=== PATIENT | female | born 1935 | race African-American/Black ===

== ENCOUNTER 2016-09-06 01:01 | Emergency (ER) | payer OTHER ==
[~2016-09-06] VITALS: Ht 162.6 cm; Wt 96.0 kg
[~2016-09-06 01:01] MED LIST: APIX2.5 PO; CEPH500C3 PO; DILT300C PO; LANTINJ SC; LEVO.125 PO; LISI-363 PO; METO50 PO; OMEP20TA39 PO; ONDA4 PO; PRAV40TA2 PO
[2016-09-06 01:04] VITALS: BP 168/86; PULSE 82; RESP 16; TEMP 98.1; O2SAT 93
[2016-09-06] MEDS ORDERED: SODIUM CHLOR 0.9% 1000 ML INJ 1,000 ML IV SCH (03:09)
[2016-09-06] MEDS ORDERED: ONDANSETRON HCL 4 MG/2 ML VIAL IVP ONE (03:15)
[2016-09-06] MEDS ORDERED: SODIUM CHLORIDE 0.9% FLUSH 5 ML FLUSH IVF PRN (03:15)
[2016-09-06 03:32] VITALS: RESP 18; O2SAT 95
[2016-09-06 03:34] LABS: AUTOMATED NEUTROPHIL # 8.6 TH/MM3 (1.8-7.7); BASOPHIL # 0.1 TH/MM3 (0-0.2); BASOPHIL % 0.7 % (0.0-2.0); EOSINOPHIL # 0.1 TH/MM3 (0-0.4); EOSINOPHIL % 0.6 % (0.0-4.0); HEMATOCRIT 35.9 % (35.0-46.0); HEMO FLAGS DIFF FINAL; LYMPH % 7.9 % (9.0-44.0); LYMPHOCYTE # 0.8 TH/MM3 (1.0-4.8); MEAN CELL VOLUME 90.3 FL (80.0-100.0); MEAN CORPUSCULAR HEMOGLOBIN 29.6 PG (27.0-34.0); MEAN CORPUSCULAR HGB CONC 32.8 % (32.0-36.0); MONO % 4.1 % (0.0-8.0); NEUT % 86.7 % (16.0-70.0); PLATELET COUNT 218 TH/MM3 (150-450); RED BLOOD COUNT 3.98 MIL/MM3 (4.00-5.30); RED CELL DISTRIBUTION WIDTH 14.3 % (11.6-17.2); WHITE BLOOD COUNT 9.9 TH/MM3 (4.0-11.0)
[2016-09-06 03:50] LABS: ALKALINE PHOSPHATASE 108 U/L (45-117); CREATINE KINASE 113 U/L (26-192); TOTAL BILIRUBIN ADULT 0.4 MG/DL (0.2-1.0)
[2016-09-06] MEDS ORDERED: OMEP20TA PO (03:50)
[2016-09-06] MEDS ORDERED: LANTINJ SQ (03:50)
[2016-09-06] MEDS ORDERED: APIX2.5T PO (03:50)
[2016-09-06] MEDS ORDERED: ATOR20TA15 PO (03:50)
[2016-09-06] MEDS ORDERED: LEVO125T4 PO (03:50)
[2016-09-06] MEDS ORDERED: LISI40TA PO (03:50)
[2016-09-06] MEDS ORDERED: DILT1TAB6 PO (03:50)
[2016-09-06] MEDS ORDERED: MULTCHW27 PO (03:50)
[2016-09-06] MEDS ORDERED: METO50TA PO (03:50)
[2016-09-06] MEDS ORDERED: VITA400C28 PO (03:50)
[2016-09-06] MEDS ORDERED: GABA100C4 PO (03:50)
[2016-09-06] MEDS ORDERED: CALC0.25 PO (03:50)
[2016-09-06 03:52] LABS: ALT (GPT) 16 U/L (10-53); ANION GAP 11 MEQ/L (5-15); AST (GOT) 18 U/L (15-37); BICARBONATE 27.3 MEQ/L (21.0-32.0); BLOOD UREA NITROGEN 22 MG/DL (7-18); CHLORIDE 98 MEQ/L (98-107); GLOMERULAR FILTRATION RATE 26 ML/MIN (>89); POTASSIUM 4.3 MEQ/L (3.5-5.1); SODIUM (NA) 136 MEQ/L (136-145)
--- NOTE | 2016-09-06 03:59 | PD ---
HPI Chief Complaint: Abdominal Pain Time Seen by Provider: 03:09 Travel History International Travel<30 days: No Contact w/Intl Traveler<30days: No Traveled to known affect area: No History of Present Illness HPI The patient is an 81 year old female who presents to the [facility] emergency department with a history of abdominal pain that began Monday evening after eating [employer]. She reports that the pain is in the midepigastric area and left upper quadrant of the abdomen. She reports that it is constant and aching sensation. She reports feeling nauseated. She attempted to make herself throw up, however it did not help. She denies any other alleviating or aggravating factors other than trying to eat seems to make it worse. She denies ever having a pain like this previously, however many years ago she did have a bowel obstruction that required small intestinal surgery. This was related to adhesions from a cholecystectomy. The patient reports that her last bowel movement was yesterday. She denies any change in her bowel movements. She denies any blood in her stool or black or tarry stools. She denies any mucus in her stool. The patient denies any recent fevers, cough, congestion, neck pain, chest pain, shortness of breath, diarrhea, urinary symptoms, or neurologic symptoms. [facility] Past Medical History Narrative Medical The patient's past medical history is significant for bowel obstruction many years ago, history of gout, history of osteoarthritis, atrial fibrillation, hyperlipidemia, diabetes mellitus, hypertension, hypothyroid disorder, chronically anticoagulated on Eliquis. Arthritis: Yes (RIGHT SHOULDER,HIP AND FOOT) Asthma: No Atrial Fibrillation: Yes Autoimmune Disease: Yes (GOUT RIGHT FOOT) Blood Disorders: No Anxiety: No Depression: No Heart Rhythm Problems: No Cancer: No Cardiovascular Problems: Yes High Cholesterol: Yes Chemotherapy: No Chest Pain: No Congestive Heart Failure: No COPD: No Cerebrovascular Accident: No Diabetes: Yes Patient Takes Glucophage: No Diminished Hearing: No Endocrine: Yes Gastrointestinal Disorders: No GERD: No Glaucoma: No Gout: Yes Genitourinary: No Headaches: No Hepatitis: No Hiatal Hernia: No Hypertension: Yes Immune Disorder: No Kidney Stones: No Musculoskeletal: Yes Neurologic: No Psychiatric: No Reproductive: No Respiratory: No Myocardial Infarction: No Radiation Therapy: No Renal Failure: No Seizures: No Sickle Cell Disease: No Sleep Apnea: No Thyroid Disease: Yes Ulcer: No PNEUMOCCOCAL Vaccine (Year): 2 Menopausal: Yes : 5 Para: 2 Miscarriage: 1 Past Surgical History Narrative Surgical The patient's past surgical history is significant for partial thyroidectomy, adhesion lysis, bilateral cataract surgery, cholecystectomy. Abdominal Surgery: Yes (SMALL INTESTINE SX) AICD: No Arteriovenous Shunt: No Cholecystectomy: Yes Eye Surgery: Yes (BILAT CATARACT) Insulin Pump: No Joint Replacement: No Pacemaker: No Other Surgery: Yes (THYROIDECTOMY 2010) Social History Alcohol Use: Yes (OCCASIONALLY DRINKS WINE) Tobacco Use: No Substance Use: No Allergies-Medications (Allergen,Severity, Reaction): Coded Allergies: Celebrex (Verified Allergy, Severe, SYNCOPE, 09/06/16) Reported Meds & Prescriptions Reported Meds & Active Scripts Active Zofran Odt (Ondansetron Odt) 4 Mg Tab 4 Mg SL Q6HR PRN Bactrim DS (Sulfamethoxazole-Trimethoprim) 800-160 Mg Tab 1 Tab PO BID Reported Lantus Solostar Pen Inj (Insulin Glargine) 300 Unit/3 Ml Pen 1 Units SQ Vitamin D (Cholecalciferol) 400 Unit Cap Multivitamin Gummies Adul (Multiple Vitamins W/ Minerals) 1 Chw Chw Eliquis (Apixaban) 2.5 Mg Tab 2.5 Mg PO BID Calcitriol 0.25 Mcg Cap 0.25 Mcg PO DAILY Omeprazole 20 Mg Tab 20 Mg PO BID Gabapentin 100 Mg Cap 100 Mg PO BID Lisinopril 40 Mg Tab 40 Mg PO DAILY Atorvastatin (Atorvastatin Calcium) 20 Mg Tab 20 Mg PO HS Metoprolol Tartrate 50 Mg Tab 50 Mg PO BID Levothyroxine (Levothyroxine Sodium) 125 Mcg Tab 125 Mcg PO DAILY Diltiazem ER 24 HR 300 Mg Lexy 300 Mg PO DAILY Review of Systems Except as stated in HPI: all other systems reviewed are Neg General / Constitutional: No: Fever Eyes: No: Visual changes HENT: No: Headaches Cardiovascular: No: Chest Pain or Discomfort Respiratory: No: Shortness of Breath Gastrointestinal: Positive: Nausea, Vomiting, Abdominal Pain, Indigestion, No : Hematemesis, Hematochezia, Changes in Bowel Habits, Loss of Appetite Genitourinary: No: Dysuria Musculoskeletal: No: Pain Skin: No Rash Neurologic: No: Weakness, Focal Abnormalities, Coordination Problem, Change in Mentation, Sensory Disturbance Psychiatric: No: Depression Endocrine: No: Polydipsia Hematologic/Lymphatic: No: Easy Bruising Physical Exam Narrative General: The patient is a well-developed well-nourished female in no acute distress. Head and Neck exam: Head is normocephalic atraumatic. Eyes: EOMI, pupils are equal round and reactive to light. Nose: Midline septum with pink mucous membranes Mouth: Dentition unremarkable. Moist mucus membranes. Posterior oropharynx is not erythematous. No tonsillar hypertrophy. Uvula midline. Airway patent. Neck: No palpable lymphadenopathy. No nuchal rigidity. No thyromegaly. Cardiovascular: Regular rate and rhythm without murmurs, gallops, or rubs. Lungs: Clear to auscultation bilaterally. No wheezes, rhonchi, or rales. Abdomen: Soft, with tenderness on palpation along the area just above the umbilicus in the midline overlying her prior laparotomy incision, no palpable hernia, no other tenderness on palpation of the other quadrants of the abdomen other than in the midepigastric area. No guarding, rebound, or rigidity. Negative [place] sign. Normal bowel sounds are audible. No tenderness on palpation of McBurney' s point. Extremities: No clubbing, cyanosis, or edema. 2+ pulses in all 4 extremities. No calf tenderness on palpation. Back: No spinous process tenderness to palpation. No costovertebral angle tenderness to palpation. Neurologic Exam: Grossly nonfocal. Skin Exam: No rash noted. Intact skin that is warm and dry. Data Data Last Documented VS Vital Signs Date Time Temp Pulse Resp B/P Pulse Ox O2 Delivery O2 Flow Rate FiO2 09/06/16 06:42 83 16 162/91 96 09/06/16 05:24 Nasal Cannula 2 09/06/16 01:04 98.1 Orders Urinalysis - C+S If Indicated (09/06/16 01:26) Complete Blood Count With Diff (09/06/16 03:09) Comprehensive Metabolic Panel (09/06/16 03:09) Lipase (09/06/16 03:09) Lactic Acid (09/06/16 03:09) Prothrombin Time / Inr (Pt) (09/06/16 03:09) Act Partial Throm Time (Ptt) (09/06/16 03:09) Iv Access Insert/Monitor (09/06/16 03:09) Ecg Monitoring (09/06/16 03:09) Oximetry (09/06/16 03:09) Ondansetron Inj (Zofran Inj) (09/06/16 03:15) Sodium Chlor 0.9% 1000 Ml Inj (Ns 1000 M (09/06/16 03:09) Sodium Chloride 0.9% Flush (Ns Flush) (09/06/16 03:15) Creatine Kinase (Cpk) (09/06/16 03:09) Ckmb (Isoenzyme) Profile (09/06/16 03:09) Troponin I (09/06/16 03:09) CKMB (09/06/16 03:20) CKMB% (09/06/16 03:20) Ct Abd/Pel W/O Iv Contrast (09/06/16 03:20) Morphine Inj (Morphine Inj) (09/06/16 04:30) Urine Culture (09/06/16 05:15) Ceftriaxone Inj (Rocephin Inj) (09/06/16 06:30) Labs Laboratory Tests Test 09/06/16 09/06/16 03:20 05:15 White Blood Count 9.9 TH/MM3 Red Blood Count 3.98 MIL/MM3 Hemoglobin 11.8 GM/DL Hematocrit 35.9 % Mean Corpuscular Volume 90.3 FL Mean Corpuscular Hemoglobin 29.6 PG Mean Corpuscular Hemoglobin 32.8 % Concent Red Cell Distribution Width 14.3 % Platelet Count 218 TH/MM3 Mean Platelet Volume 8.9 FL Neutrophils (%) (Auto) 86.7 % Lymphocytes (%) (Auto) 7.9 % Monocytes (%) (Auto) 4.1 % Eosinophils (%) (Auto) 0.6 % Basophils (%) (Auto) 0.7 % Neutrophils # (Auto) 8.6 TH/MM3 Lymphocytes # (Auto) 0.8 TH/MM3 Monocytes # (Auto) 0.4 TH/MM3 Eosinophils # (Auto) 0.1 TH/MM3 Basophils # (Auto) 0.1 TH/MM3 CBC Comment DIFF FINAL Differential Comment Prothrombin Time 11.0 SEC Prothromb Time International 1.0 RATIO Ratio Activated Partial 25.0 SEC Thromboplast Time Sodium Level 136 MEQ/L Potassium Level 4.3 MEQ/L Chloride Level 98 MEQ/L Carbon Dioxide Level 27.3 MEQ/L Anion Gap 11 MEQ/L Blood Urea Nitrogen 22 MG/DL Creatinine 2.19 MG/DL Estimat Glomerular Filtration 26 ML/MIN Rate Random Glucose 236 MG/DL Lactic Acid Level 1.3 mmol/L Calcium Level 9.3 MG/DL Total Bilirubin 0.4 MG/DL Aspartate Amino Transf 18 U/L (AST/SGOT) Alanine Aminotransferase 16 U/L (ALT/SGPT) Alkaline Phosphatase 108 U/L Total Creatine Kinase 113 U/L Creatine Kinase MB 1.1 NG/ML Troponin I LESS THAN 0.02 NG/ML Total Protein 8.5 GM/DL Albumin 3.7 GM/DL Lipase 215 U/L Urine Color YELLOW Urine Turbidity HAZY Urine pH 6.0 Urine Specific [place] 1.021 Urine Protein 300 mg/dL Urine Glucose (UA) NEG mg/dL Urine Ketones NEG mg/dL Urine Occult Blood SMALL Urine Nitrite NEG Urine Bilirubin NEG Urine Urobilinogen LESS THAN 2.0 MG/DL Urine Leukocyte Esterase MOD Urine RBC 5 /hpf Urine WBC 21 /hpf Urine WBC Clumps FEW Urine Squamous Epithelial 2 /hpf Cells Urine Transitional Epithelial <1 /hpf Cells Urine Renal Epithelial Cells <1 /hpf Urine Amorphous Sediment RARE Urine Bacteria RARE /hpf Urine Hyaline Casts 1 /lpf Urine Mucus FEW /lpf Microscopic Urinalysis Comment CULTURE INDICATED MDM Medical Decision Making Medical Screen Exam Complete: Yes Emergency Medical Condition: Yes Medical Record Reviewed: Yes Interpretation(s) Last Impressions Abdomen/Pelvis CT 09/06/16 0320 Signed Impressions: Service Date/Time: Tuesday, September 06, 2016 04:41 - CONCLUSION: 1. Stable, bilateral 1.7 cm adrenal nodules. 2. 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 3. No acute intraperitoneal or pelvic process to explain current clinical symptoms. Reyes Rogers MD Differential Diagnosis Recurrent bowel obstruction, versus colitis, versus diverticulitis, versus pancreatitis Narrative Course During the course of the patients emergency department visit, the patients history, examination, and differential diagnosis were reviewed with the patient. The patient had IV access obtained and blood work sent for analysis. The patient was placed on a library technology instructor with oximetry and blood pressure monitoring. An EKG was ordered. CT scan of the abdomen and pelvis was ordered. The patient was provided normal saline IV fluids, morphine for pain, Zofran for nausea. The patients laboratory studies were reviewed and remarkable for a white count of 9.9, hemoglobin 11.8, platelets 218 with 86.7 neutrophils, lymphocytes 7.9, CMP is remarkable for a BUN of 22, creatinine 2.19 which is increased compared to previously at 18 and 1.80 respectively, glucose 236, LFTs within normal limits, CPK and troponin I within normal limits, lipase 2:15, lactic acid 1.3, PT PTT unremarkable. Urinalysis shows hazy urine 300 protein and small occult blood, moderate leukocyte esterase 5 RBCs WBCs 21 with few clumps rare bacteria culture indicated. Radiology studies were reviewed and remarkable for a CT scan of the abdomen and pelvis that shows stable bilateral 1.7 cm adrenal nodules, mild diverticular disease of the sigmoid colon without diverticulitis, no acute intraperitoneal or pelvic process to explain the current abdominal pain according to the reading radiologist. The patient reported feeling improvement. The patient will be discharged home with a prescription for antibiotic and nausea medication. The patient was instructed regarding the importance of close follow-up with her primary care doctor within the next 2 days. The patient is resting comfortably and feels better, is alert and in no distress. The patients results and examination findings were discussed with the patient. The repeat examination is unremarkable and benign. The history, exam, diagnostic testing, and current condition do not suggest any significant pathology to warrant further testing, continued ED treatment, admission, or surgical evaluation at this point. The vital signs have been stable. The patient does not have uncontrollable pain, intractable vomiting, or other significant symptoms. The patient's condition is stable and appropriate for discharge. The patient will pursue further outpatient evaluation with a primary care physician or other designated or consulting physician as indicated in the discharge instructions. The patient expressed understanding and was agreeable with this plan. Diagnosis Primary Impression: Abdominal pain Qualified Code: R10.10 - Pain of upper abdomen Additional Impressions: Urinary tract infection Qualified Code: N39.0 - Urinary tract infection without hematuria, site unspecified Nausea Referrals: Primary Care Physician 1 day Patient Instructions: Abdominal Pain (ED), General Instructions, Urinary Tract Infection in Women (ED) Med/Other Pt SpecificInfo: Prescription(s) given Scripts Ondansetron Odt (Zofran Odt)4 Mg Tab4 Mg SL Q6HR PRN (Nausea/Vomiting) #7 TAB Ref 0 Prov:Mali Bland MD 09/06/16 Sulfamethoxazole-Trimethoprim (Bactrim DS)800-160 Mg Tab1 Tab PO BID #14 TAB Ref 0 Prov:Mali Bland MD 09/06/16 Disposition: 01 DISCHARGE HOME Mali Bland MD Sep 06, 2016 03:59
[2016-09-06 04:02] LABS: CKMB 1.1 NG/ML (0.5-3.6)
[2016-09-06] MEDS ORDERED: MORPHINE SULFATE 4 MG/ML INJ IV PUSH ONE (04:30)
--- NOTE | 2016-09-06 05:01 | RADRPT ---
EXAM DATE/TIME: 09/06/2016 04:41 [facility] COMPARISON: CT ABDOMEN & PELVIS W/O CONTRAST, July 20, 2015, 19:36. INDICATIONS : Abdominal pain with nausea and vomiting. ORAL CONTRAST: No oral contrast ingested. RADIATION DOSE: 24.66 CTDIvol (mGy) MEDICAL HISTORY : Hypercholesterolemia. Hypertension. a-fib, gout, diabetes SURGICAL HISTORY : Cholecystectomy. bowel surgery ENCOUNTER: Initial ACUITY: 1 day PAIN SCALE: 8/10 LOCATION: abdomen TECHNIQUE: Volumetric scanning of the abdomen and pelvis was performed. Using automated exposure control and ad justment of the mA and/or kV according to patient size, radiation dose was kept as low as reasonably achievable to obtain optimal diagnostic quality images. FINDINGS: LOWER LUNGS: The visualized lower lungs are clear. Calcification of the mitral annulus. LIVER: Homogeneous density without lesion. There is no dilation of the biliary tree. No calcified gallston es. SPLEEN: Normal size without lesion. PANCREAS: Within normal limits. KIDNEYS: Normal in size and shape. There is no mass, stone, or hydronephrosis. ADRENAL GLANDS: Stable, bilateral nodules with both measuring 1.7 cm. VASCULAR: There is no aortic aneurysm. 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 ABDOMINAL WALL: Within normal limits. RETROPERITONEUM: There is no lymphadenopathy. BLADDER: No wall thickening or mass. REPRODUCTIVE: Within normal limits. INGUINAL: There is no lymphadenopathy or hernia. MUSCULOSKELETAL: Within normal limits for patient age. CONCLUSION: 1. Stable, bilateral 1.7 cm adrenal nodules. 2. 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 3. No acute intraperitoneal or pelvic process to explain current clinical symptoms. Reyes Rogers MD on September 06, 2016 at 4:56 Board Certified Radiologist. This report was verified electronically.
[2016-09-06 05:24] VITALS: BP 192/91; PULSE 81; RESP 16; O2SAT 95
[2016-09-06 05:36] LABS: BACTERIA, URINE RARE /hpf; BLOOD, URINE SMALL (NEG); GLUCOSE,URINE NEG (NEG); HYALINE CAST, URINE 1 /lpf (RARE); KETONE, URINE NEG (NEG); MUCUS URINE FEW /lpf (OCC); NITRITE,URINE NEG (NEG); RENAL EPITHELIAL CELLS <1 /hpf; SQUAMOUS EPITHELIAL CELL URINE 2 /hpf (0-5); TRANSITIONAL EPI CELLS, URINE <1 /hpf; URINE COLOR YELLOW (YELLW/STRAW)
[2016-09-06 05:37] LABS: COMMENT (UR) CULTURE INDICATED; CULTURE IF INDICATED CULTURE INDICATED
[2016-09-06] MEDS ORDERED: BACT800T5 PO (06:18)
[2016-09-06] MEDS ORDERED: ZOFR4TAB3 SL (06:19)
[2016-09-06] MEDS ORDERED: cefTRIAXone INJ 1,000 MG in SODIUM CHLORIDE 0.9% INJ 100 ML IV ONE (06:30)
[2016-09-06 06:42] VITALS: BP 162/91; PULSE 83; RESP 16; O2SAT 96
== END 2016-09-06 08:45 | disposition home or self-care (01) ==
LOC: NEPE 01:01
DX: R10.9 Unspecified abdominal pain (principal); N39.0 Urinary tract infection, site not specified; R11.0 Nausea; I48.91 Unspecified atrial fibrillation; E78.00 Pure hypercholesterolemia, unspecified; E11.9 Type 2 diabetes mellitus without complications; I10 Essential (primary) hypertension
CPT/HCPCS: 74176; 80053; 81001; 82550; 82552; 83605; 83690; 84484; 85025; 85610; 85730; 87086; 96361; 96365; 96375; J0696; J2270; J2405; J7030

== ENCOUNTER 2016-09-09 02:45 | Inpatient (IN) | payer OTHER, MEDICARE ==
[2016-09-09] VITALS (18 sets, daily range): BP systolic 111–142; BP diastolic 53–80; PULSE 62–96; RESP 17–23; TEMP 98–98.9; O2SAT 93–100
[~2016-09-09] VITALS: Ht 162.6 cm; Wt 108.4 kg
[~2016-09-09 02:45] MED LIST changes: -APIX2.5 PO; +APIX2.5T PO; +ATOR20TA15 PO; +BACT800T5 PO; +CALC0.25 PO; -CEPH500C3 PO; +DILT1TAB6 PO; -DILT300C PO; +GABA100C4 PO; -LANTINJ SC; +LANTINJ SQ; -LEVO.125 PO; +LEVO125T4 PO; -LISI-363 PO; +LISI40TA PO; -METO50 PO; +METO50TA PO; +MULTCHW27 PO; +OMEP20TA PO; -OMEP20TA39 PO; -ONDA4 PO; -PRAV40TA2 PO; +VITA400C28 PO; +ZOFR4TAB3 SL
--- NOTE | 2016-09-09 02:59 | PD ---
HPI Chief Complaint: General Weakness Time Seen by Provider: 02:48 Travel History International Travel<30 days: No Contact w/Intl Traveler<30days: No Traveled to known affect area: No History of Present Illness HPI 81-year-old female with history of diabetes, A. fib, hypertension, brought in by ambulance from home for evaluation of generalized weakness. When EMS arrived to her home, they noticed that the patient's O2 saturation was in the 40s. End-tidal CO2 was in the 60s. They started the patient on 100% nonrebreather with improvement in O2 saturation. Upon arrival to the emergency department the patient is in moderate respiratory distress. She is speaking a few words at a time. There is accessory muscle use. She is complaining of feeling short of breath and generalized weakness. No chest pain. No abdominal pain. PFSH Past Medical History Arthritis: Yes (RIGHT SHOULDER,HIP AND FOOT) Asthma: No Atrial Fibrillation: Yes Autoimmune Disease: Yes (GOUT RIGHT FOOT) Blood Disorders: No Anxiety: No Depression: No Heart Rhythm Problems: No Cancer: No Cardiovascular Problems: Yes High Cholesterol: Yes Chemotherapy: No Chest Pain: No Congestive Heart Failure: No COPD: No Cerebrovascular Accident: No Diabetes: Yes Patient Takes Glucophage: No Diminished Hearing: No Endocrine: Yes Gastrointestinal Disorders: No GERD: No Glaucoma: No Gout: Yes Genitourinary: No Headaches: No Hepatitis: No Hiatal Hernia: No Hypertension: Yes Immune Disorder: No Kidney Stones: No Musculoskeletal: Yes Neurologic: No Psychiatric: No Reproductive: No Respiratory: No Myocardial Infarction: No Radiation Therapy: No Renal Failure: No Seizures: No Sickle Cell Disease: No Sleep Apnea: No Thyroid Disease: Yes Ulcer: No PNEUMOCCOCAL Vaccine (Year): 2 Menopausal: Yes : 5 Para: 2 Miscarriage: 1 Past Surgical History Abdominal Surgery: Yes (SMALL INTESTINE SX) AICD: No Arteriovenous Shunt: No Cholecystectomy: Yes Eye Surgery: Yes (BILAT CATARACT) Insulin Pump: No Joint Replacement: No Pacemaker: No Other Surgery: Yes (THYROIDECTOMY 2010) Social History Alcohol Use: Yes (OCCASIONALLY DRINKS WINE) Tobacco Use: No Substance Use: No Allergies-Medications (Allergen,Severity, Reaction): Coded Allergies: Celebrex (Verified Allergy, Severe, SYNCOPE, 09/06/16) Reported Meds & Prescriptions Reported Meds & Active Scripts Active Zofran Odt (Ondansetron Odt) 4 Mg Tab 4 Mg SL Q6HR PRN Bactrim DS (Sulfamethoxazole-Trimethoprim) 800-160 Mg Tab 1 Tab PO BID Reported Lantus Solostar Pen Inj (Insulin Glargine) 300 Unit/3 Ml Pen 1 Units SQ Vitamin D (Cholecalciferol) 400 Unit Cap Multivitamin Gummies Adul (Multiple Vitamins W/ Minerals) 1 Chw Chw Eliquis (Apixaban) 2.5 Mg Tab 2.5 Mg PO BID Calcitriol 0.25 Mcg Cap 0.25 Mcg PO DAILY Omeprazole 20 Mg Tab 20 Mg PO BID Gabapentin 100 Mg Cap 100 Mg PO BID Lisinopril 40 Mg Tab 40 Mg PO DAILY Atorvastatin (Atorvastatin Calcium) 20 Mg Tab 20 Mg PO HS Metoprolol Tartrate 50 Mg Tab 50 Mg PO BID Levothyroxine (Levothyroxine Sodium) 125 Mcg Tab 125 Mcg PO DAILY Diltiazem ER 24 HR 300 Mg Elxy 300 Mg PO DAILY Review of Systems Except as stated in HPI: all other systems reviewed are Neg Physical Exam Narrative GENERAL: Well-developed, well-nourished, elderly-appearing female, moderate respiratory distress with accessory muscle use, speaking a few words at a time. SKIN: Warm and dry. HEAD: Atraumatic. Normocephalic. EYES: Pupils equal and round. No scleral icterus. No injection or drainage. ENT: Mucous membranes pink and moist. NECK: Trachea midline. No JVD. CARDIOVASCULAR: Regular rate and rhythm. No murmur appreciated. RESPIRATORY: Accessory muscle use. Speaking a few words at a time. Poor air movement bilaterally. And expiratory wheezes bilaterally. No rales or rhonchi. GASTROINTESTINAL: Abdomen soft, non-tender, nondistended. Hepatic and splenic margins not palpable. MUSCULOSKELETAL: No obvious deformities. No clubbing. No cyanosis. No edema. NEUROLOGICAL: Awake and alert. No obvious cranial nerve deficits. Motor grossly within normal limits. Normal speech. PSYCHIATRIC: Appropriate mood and affect; insight and judgment normal. Data Data Last Documented VS Vital Signs Date Time Temp Pulse Resp B/P Pulse Ox O2 Delivery O2 Flow Rate FiO2 09/09/16 03:26 99 50 09/09/16 02:53 96 22 Nasal Cannula 6 09/09/16 02:49 98.9 Orders Complete Blood Count With Diff (09/09/16 02:48) Comprehensive Metabolic Panel (09/09/16 02:48) B-Type Natriuretic Peptide (09/09/16 02:48) Act Partial Throm Time (Ptt) (09/09/16 02:48) Prothrombin Time / Inr (Pt) (09/09/16 02:48) Magnesium (Mg) (09/09/16 02:48) Ckmb (Isoenzyme) Profile (09/09/16 02:48) Troponin I (09/09/16 02:48) Arterial Blood Gas (Abg) (09/09/16 02:48) Influenzae A/B Antigen (09/09/16 02:48) Blood Culture (09/09/16 02:48) Iv Access Insert/Monitor (09/09/16 02:48) Electrocardiogram (09/09/16 02:48) Ecg Monitoring (09/09/16 02:48) Oximetry (09/09/16 02:48) Oxygen Administration (09/09/16 02:48) Chest, Single Ap (09/09/16 02:48) Sodium Chloride 0.9% Flush (Ns Flush) (09/09/16 03:00) Methylprednisolone So Succ Inj (Solumedr (09/09/16 03:00) Albuterol-Ipratropium Neb (Duoneb Neb) (09/09/16 03:00) Resp Bipap / Cpap Non Invas Vt (09/09/16 ) Cefepime Inj (Maxipime Inj) (09/09/16 03:45) Azithromycin Inj (Zithromax Inj) (09/09/16 03:45) Lactic Acid (09/09/16 03:55) Labs Laboratory Tests Test 09/09/16 09/09/16 03:00 03:30 White Blood Count 10.2 TH/MM3 Red Blood Count 3.64 MIL/MM3 Hemoglobin 10.7 GM/DL Hematocrit 33.7 % Mean Corpuscular Volume 92.8 FL Mean Corpuscular Hemoglobin 29.6 PG Mean Corpuscular Hemoglobin 31.9 % Concent Red Cell Distribution Width 14.2 % Platelet Count 207 TH/MM3 Mean Platelet Volume 8.8 FL Neutrophils (%) (Auto) % Lymphocytes (%) (Auto) % Monocytes (%) (Auto) % Eosinophils (%) (Auto) % Basophils (%) (Auto) % Neutrophils # (Auto) TH/MM3 Lymphocytes # (Auto) TH/MM3 Monocytes # (Auto) TH/MM3 Eosinophils # (Auto) TH/MM3 Basophils # (Auto) TH/MM3 CBC Comment AUTO DIFF Differential Total Cells 100 Counted Neutrophils % (Manual) 79 % Band Neutrophils % 1 % Lymphocytes % 14 % Monocytes % 5 % Neutrophils # (Manual) 8.3 TH/MM3 Metamyelocytes 1 % Differential Comment FINAL DIFF MANUAL Platelet Estimate NORMAL Platelet Morphology Comment NORMAL Polychromasia 2.4 % Basophilic Stippling FAINT Red Cell Morphology Comment NORMAL Prothrombin Time 11.3 SEC Prothromb Time International 1.0 RATIO Ratio Activated Partial 25.3 SEC Thromboplast Time Sodium Level 132 MEQ/L Potassium Level 4.1 MEQ/L Chloride Level 94 MEQ/L Carbon Dioxide Level 26.5 MEQ/L Anion Gap 12 MEQ/L Blood Urea Nitrogen 24 MG/DL Creatinine 2.99 MG/DL Estimat Glomerular Filtration 18 ML/MIN Rate Random Glucose 298 MG/DL Calcium Level 8.8 MG/DL Magnesium Level 2.0 MG/DL Aspartate Amino Transf 15 U/L (AST/SGOT) Alanine Aminotransferase 18 U/L (ALT/SGPT) B-Type Natriuretic Peptide 495 PG/ML Albumin 3.5 GM/DL Blood Gas Puncture Site RT RADIAL Blood Gas Patient Temperature 98.6 Blood Gas HCO3 26 mmol/L Blood Gas Base Excess 0.0 mmol/L Blood Gas Oxygen Saturation 91 % Arterial Blood pH 7.29 Arterial Blood Partial 56 mmHg Pressure CO2 Arterial Blood Partial 72 mmHG Pressure O2 Arterial Blood Oxygen Content 12.6 Vol % Arterial Blood 2.1 % Carboxyhemoglobin Arterial Blood Methemoglobin 0.5 % Blood Gas Hemoglobin 9.8 G/DL Oxygen Delivery Device BiPAP Blood Gas Ventilator Setting IPAP=12/EPAP=5 Blood Gas Inspired Oxygen 50 % [facility] Medical Decision Making Medical Screen Exam Complete: Yes Emergency Medical Condition: Yes Medical Record Reviewed: Yes Interpretation(s) EKG: Sinus, rate 94, first-degree AV block, normal axis, normal intervals, no acute ischemic abnormality. Differential Diagnosis Reactive airway disease, hypercapnia, pneumonia, PE, pulmonary edema, pneumothorax Narrative Course Patient was started on BiPAP probably after arrival to the emergency department. Initial vital signs show heart rate 96, respiratory rate 22, pulse ox 95% on 100 % nonrebreather, oral temp of 98.9F. CBC shows WBC 10.2, hemoglobin 10.7, hematocrit 33.7, platelets 207 CMP is remarkable for BUN 24, creatinine 2.99, GFR 18, random glucose 298 BNP is 495. ABG on 50% BiPAP shows pH of 7.29, PaO2 72, PCO2 56 Chest x-ray: Multifocal bilateral lower lung infiltrates. The patient was started on cefepime and azithromycin. Blood cultures obtained prior to antibiotic administration. Patient reports significant improvement in shortness of breath while on BiPAP. She is still requiring BiPAP. She was also given IV Solu-Medrol and 3 DuoNeb treatments. She will be admitted to the ICU for further treatment and evaluation of pneumonia, dyspnea, hyperglycemia, acute on chronic renal insufficiency. Case discussed with milk vendor Dr. Taylor who will admit the patient to his service. Critical Care Narrative Aggregate critical care time was 35 minutes. Time to perform other separately billable procedures was not included in the critical care time. My time did not include minutes spent treating any other patients simultaneously or on activities that did not directly contribute to the patient's treatment. The services I provided to this patient were to treat and/or prevent clinically significant deterioration that could result in: , permanent disability, worsening clinical condition. I provided critical care services requiring my management, as noted below: Chart data review, documentation time, medication orders and management, vital sign assessments/reviewing monitor data, ordering and reviewing lab tests, ordering and interpreting/reviewing x-rays and diagnostic studies, care of the patient and discussion of the patient with the admitting physicians. Diagnosis Primary Impression: Pneumonia Qualified Code: J18.9 - Pneumonia of both lungs due to infectious organism, unspecified part of lung Additional Impressions: Respiratory distress Acute on chronic renal insufficiency Hyperglycemia Jose Patel MD Sep 09, 2016 02:59
[2016-09-09] MEDS ORDERED: methylPREDNISolone SOD SUCC 125 MG/2 ML VIAL IVP ONE (03:00)
[2016-09-09] MEDS ORDERED: SODIUM CHLORIDE 0.9% FLUSH 5 ML FLUSH IVF PRN (03:00)
[2016-09-09] MEDS: RESP: ALBUTEROL 2.5 MG/IPRATROPIUM 0.5 MG NEB (SCH) INH ×5 (03:15→21:27)
[2016-09-09 03:18] LABS: HEMATOCRIT 33.7 % (35.0-46.0); MEAN CELL VOLUME 92.8 FL (80.0-100.0); MEAN CORPUSCULAR HEMOGLOBIN 29.6 PG (27.0-34.0); MEAN CORPUSCULAR HGB CONC 31.9 % (32.0-36.0); PLATELET COUNT 207 TH/MM3 (150-450); RED BLOOD COUNT 3.64 MIL/MM3 (4.00-5.30); RED CELL DISTRIBUTION WIDTH 14.2 % (11.6-17.2); WHITE BLOOD COUNT 10.2 TH/MM3 (4.0-11.0)
[2016-09-09 03:20] LABS: HEMO FLAGS AUTO DIFF
[2016-09-09 03:27] LABS: APTT (PATIENT) 25.3 SEC (24.3-30.1); PROTHROMBIN TIME - PATIENT 11.3 SEC (9.8-11.6)
--- NOTE | 2016-09-09 03:29 | RADRPT ---
EXAM DATE/TIME: 09/09/2016 03:11 [place] COMPARISON: CT ABDOMEN & PELVIS W/O CONTRAST, September 06, 2016, 4:41. CHEST SINGLE AP, December 16, 2013, 21:31. INDICATIONS : Shortness of breath. MEDICAL HISTORY : Hypercholesterolemia. Hypertension. a-fib, gout, diabetes. SURGICAL HISTORY : None. ENCOUNTER: Initial ACUITY: 1 day PAIN SCORE: 0/10 LOCATION: chest FINDINGS: There are non-consolidative infiltrates in the right infrahilar region, right costophrenic angle, and left lower lung. The upper lungs are clear. The heart is normal in size. CONCLUSION: Multifocal bilateral lower lung infiltrates. Claudio Fleming MD on September 09, 2016 at 3:26 Board Certified Radiologist. This report was verified electronically.
[2016-09-09 03:41] LABS: BLOOD GAS CARBOXYHEMOGLOBIN 2.1 % (0-4); BLOOD GAS HCO3 26 mmol/L (22-26); BLOOD GAS METHEMOGLOBIN 0.5 % (0-2); BLOOD GAS O2 HGB SATURATION 91 % (90-100); BLOOD GAS OXYGEN CONTENT 12.6 Vol % (12.0-20.0); BLOOD GAS PCO2 56 mmHg (38-42); BLOOD GAS PO2 72 mmHG (61-120); BLOOD GAS TOTAL HGB 9.8 G/DL (12.0-16.0); TEMP CORR TO 98.6
[2016-09-09 03:42] LABS: CRITICAL VALUE YES; FIO2 50 %; OXYGEN DEVICE BiPAP; VENT SETTINGS IPAP=12/EPAP=5
[2016-09-09 03:43] LABS: DRAW SITE RT RADIAL; NUMBER OF ARTERIAL PUNCTURES 1; STAT YES
[2016-09-09] MEDS ORDERED: CEFEPIME INJ 2,000 MG in SODIUM CHLORIDE 0.9% INJ 100 ML IV ONE (03:45)
[2016-09-09] MEDS ORDERED: AZITHROMYCIN INJ 500 MG in SODIUM CHLOR 0.9% 250 ML INJ 250 ML IV ONE (03:45)
[2016-09-09 03:50] LABS: ALT (GPT) 18 U/L (10-53); ANION GAP 12 MEQ/L (5-15); AST (GOT) 15 U/L (15-37); BICARBONATE 26.5 MEQ/L (21.0-32.0); BLOOD UREA NITROGEN 24 MG/DL (7-18); CHLORIDE 94 MEQ/L (98-107); GLOMERULAR FILTRATION RATE 18 ML/MIN (>89); POTASSIUM 4.1 MEQ/L (3.5-5.1); SODIUM (NA) 132 MEQ/L (136-145)
[2016-09-09 03:58] LABS: BANDS 1 % (0-6); METAMYELOCYTES 1 % (0-1); NEUTROPHIL # MANUAL DIFF 8.3 TH/MM3 (1.8-7.7); POLYS (SEG NEUTROPHILS) 79 % (16-70); SCAN/DIFF FINAL DIFF MANUAL; WBC DIFF SAMPLE 100
[2016-09-09 04:00] LABS: PLATELET ESTIMATE SMEAR NORMAL (NORMAL); PLATELET MORPHOLOGY NORMAL (NORMAL); POLYCHROMASIA 2.4 % (0.0-1.9)
[2016-09-09 04:07] LABS: ALKALINE PHOSPHATASE 92 U/L (45-117); CREATINE KINASE 167 U/L (26-192); TOTAL BILIRUBIN ADULT 0.3 MG/DL (0.2-1.0)
[2016-09-09 04:20] LABS: CKMB 1.8 NG/ML (0.5-3.6)
[2016-09-09] MEDS ORDERED: MISCELLANEOUS NURSING INFORMATION XX SCH (05:15)
[2016-09-09] MEDS ORDERED: CHLORHEXIDINE GLUCONATE 2 % 1 PACK (2 CLOTHS) TOP PRN (05:15)
[2016-09-09] MEDS ORDERED: DEXTROSE 50% IN WATER 50 ML VIAL(D50) IV PUSH PRN (05:15)
[2016-09-09] MEDS ORDERED: SODIUM CHLORIDE 0.9% FLUSH 5 ML FLUSH IV FLUSH PRN (05:15)
[2016-09-09] MEDS ORDERED: ONDANSETRON HCL 4 MG/2 ML VIAL IV PRN (05:15)
[2016-09-09] MEDS ORDERED: GLUCAGON 1 MG/ML VIAL OTHER PRN (05:15)
[2016-09-09] MEDS ORDERED: ONDANSETRON ODT 4 MG TAB SL PRN (05:15)
--- NOTE | 2016-09-09 05:22 | HHI.HP ---
[facility] Service Critical Care Medicine Primary Care Physician Duncan Alba MD Admission Diagnosis pneumonia, respiratory distress, renal insufficiency, hyperglycemia Diagnosis: (1) Acute hypoxemic respiratory failure Diagnosis: Principal Chief Complaint: SOB Travel History International Travel<30 Days: No Contact w/Intl Traveler <30 Da: No Traveled to Known Affected Are: No History of Present Illness 81-year-old female brought by EMS for O2 saturation was in the 40s. End-tidal CO2 was in the 60s. CXR with new infiltrates right and left lungs. She has felt sick for several days and was in ED 3 days ago for abdominal discomfort. Clearly respiratory distress on arrival - improved with BiPAP. Review of Systems ROS Severe SOB. No chest pain. Past Family Social History Allergies: Coded Allergies: Celebrex (Verified Allergy, Severe, SYNCOPE, 09/06/16) Past Medical History Past Medical History Arthritis: Yes (RIGHT SHOULDER,HIP AND FOOT) Asthma: No Atrial Fibrillation: Yes Autoimmune Disease: Yes (GOUT RIGHT FOOT) Blood Disorders: No Anxiety: No Depression: No Heart Rhythm Problems: No Cancer: No Cardiovascular Problems: Yes High Cholesterol: Yes Chemotherapy: No Chest Pain: No Congestive Heart Failure: No COPD: No Cerebrovascular Accident: No Diabetes: Yes Patient Takes Glucophage: No Diminished Hearing: No Endocrine: Yes Gastrointestinal Disorders: No GERD: No Glaucoma: No Gout: Yes Genitourinary: No Headaches: No Hepatitis: No Hiatal Hernia: No Hypertension: Yes Immune Disorder: No Kidney Stones: No Musculoskeletal: Yes Neurologic: No Psychiatric: No Reproductive: No Respiratory: No Myocardial Infarction: No Radiation Therapy: No Renal Failure: No Seizures: No Sickle Cell Disease: No Sleep Apnea: No Thyroid Disease: Yes Ulcer: No PNEUMOCCOCAL Vaccine (Year): 2 Menopausal: Yes : 5 Para: 2 Miscarriage: 1 Past Surgical History Abdominal Surgery: Yes (SMALL INTESTINE SX) AICD: No Arteriovenous Shunt: No Cholecystectomy: Yes Eye Surgery: Yes (BILAT CATARACT) Insulin Pump: No Joint Replacement: No Pacemaker: No Other Surgery: Yes (THYROIDECTOMY 2010) Social History Alcohol Use: Yes (OCCASIONALLY DRINKS WINE) Tobacco Use: No Substance Use: No Allergies-Medications Allergies-Medications (Allergen,Severity, Reaction): Coded Allergies: Celebrex (Verified Allergy, Severe, SYNCOPE, 09/06/16) Reported Meds & Prescriptions Reported Meds & Active Scripts Active Zofran Odt (Ondansetron Odt) 4 Mg Tab 4 Mg SL Q6HR PRN Bactrim DS (Sulfamethoxazole-Trimethoprim) 800-160 Mg Tab 1 Tab PO BID Reported Lantus Solostar Pen Inj (Insulin Glargine) 300 Unit/3 Ml Pen 1 Units SQ Vitamin D (Cholecalciferol) 400 Unit Cap Multivitamin Gummies Adul (Multiple Vitamins W/ Minerals) 1 Chw Chw Eliquis (Apixaban) 2.5 Mg Tab 2.5 Mg PO BID Calcitriol 0.25 Mcg Cap 0.25 Mcg PO DAILY Omeprazole 20 Mg Tab 20 Mg PO BID Gabapentin 100 Mg Cap 100 Mg PO BID Lisinopril 40 Mg Tab 40 Mg PO DAILY Atorvastatin (Atorvastatin Calcium) 20 Mg Tab 20 Mg PO HS Metoprolol Tartrate 50 Mg Tab 50 Mg PO BID Levothyroxine (Levothyroxine Sodium) 125 Mcg Tab 125 Mcg PO DAILY Diltiazem ER 24 HR 300 Mg Lexy 300 Mg PO DAILY Physical Exam Vital Signs Vital Signs Date Time Temp Pulse Resp B/P Pulse Ox O2 Delivery O2 Flow Rate FiO2 09/09/16 04:20 98.4 87 20 142/80 100 BiPAP 60 09/09/16 03:26 99 50 09/09/16 02:53 96 22 94 Nasal Cannula 6 09/09/16 02:53 95 Nasal Cannula 6 09/09/16 02:53 95 Nasal Cannula 6 09/09/16 02:49 98.9 96 22 95 Physical Exam P 87 - 96, SBP 130s, R 32 labored, Sats 93% on BiPAP Head: Normal. Neck: No obstruction or stridor. Lungs: Diffuse light wheezes, no crackles. Labored, tachypneic. Heart: Irreg Irreg, no JVD but veins are full. Abdomen: Benign, soft, nontender, no guarding. Extremities: Well perfused. No edema. Neuro: Anxious. O X 2, moves 4 limbs. Laboratory Laboratory Tests Test 09/09/16 09/09/16 09/09/16 03:00 03:30 04:00 White Blood Count 10.2 Red Blood Count 3.64 Hemoglobin 10.7 Hematocrit 33.7 Mean Corpuscular Volume 92.8 Mean Corpuscular Hemoglobin 29.6 Mean Corpuscular Hemoglobin 31.9 Concent Red Cell Distribution Width 14.2 Platelet Count 207 Mean Platelet Volume 8.8 Neutrophils (%) (Auto) Lymphocytes (%) (Auto) Monocytes (%) (Auto) Eosinophils (%) (Auto) Basophils (%) (Auto) Neutrophils # (Auto) Lymphocytes # (Auto) Monocytes # (Auto) Eosinophils # (Auto) Basophils # (Auto) CBC Comment AUTO DIFF Differential Total Cells 100 Counted Neutrophils % (Manual) 79 Band Neutrophils % 1 Lymphocytes % 14 Monocytes % 5 Neutrophils # (Manual) 8.3 Metamyelocytes 1 Differential Comment FINAL DIFF MANUAL Platelet Estimate NORMAL Platelet Morphology Comment NORMAL Polychromasia 2.4 Basophilic Stippling FAINT Red Cell Morphology Comment NORMAL Prothrombin Time 11.3 Prothromb Time International 1.0 Ratio Activated Partial 25.3 Thromboplast Time Sodium Level 132 Potassium Level 4.1 Chloride Level 94 Carbon Dioxide Level 26.5 Anion Gap 12 Blood Urea Nitrogen 24 Creatinine 2.99 Estimat Glomerular Filtration 18 Rate Random Glucose 298 Calcium Level 8.8 Magnesium Level 2.0 Total Bilirubin 0.3 Aspartate Amino Transf 15 (AST/SGOT) Alanine Aminotransferase 18 (ALT/SGPT) Alkaline Phosphatase 92 Total Creatine Kinase 167 Creatine Kinase MB 1.8 Troponin I 0.04 B-Type Natriuretic Peptide 495 Total Protein 8.3 Albumin 3.5 Blood Gas Puncture Site RT RADIAL Blood Gas Patient Temperature 98.6 Blood Gas HCO3 26 Blood Gas Base Excess 0.0 Blood Gas Oxygen Saturation 91 Arterial Blood pH 7.29 Arterial Blood Partial 56 Pressure CO2 Arterial Blood Partial 72 Pressure O2 Arterial Blood Oxygen Content 12.6 Arterial Blood 2.1 Carboxyhemoglobin Arterial Blood Methemoglobin 0.5 Blood Gas Hemoglobin 9.8 Oxygen Delivery Device BiPAP Blood Gas Ventilator Setting IPAP=12/EPAP=5 Blood Gas Inspired Oxygen 50 Lactic Acid Level 2.9 Date/Time Procedure Status Source Growth 09/09/16 03:05 Influenza Types A,B Antigen (LAYLA) - Final Complete Nasal Washing NEGATIVE FOR FLU A AND B ANTIGEN.... 09/09/16 03:00 Aerobic Blood Culture Received Blood Peripheral Pending 09/09/16 03:00 Anaerobic Blood Culture Received Blood Peripheral Pending Result Diagram: 09/09/16 0300 09/09/16 0300 Assessment and Plan Problem List: (1) Acute hypoxemic respiratory failure ICD Code: J96.01 Status: Acute (2) Pneumonia ICD Code: J18.9 Status: Acute (3) Acute on chronic renal insufficiency ICD Code: N28.9 Status: Acute (4) Hyperglycemia ICD Code: R73.9 Status: Acute Assessment and Plan Plan: 1. BiPAP 12/5, wean to 10/5 as tolerated. 2. Keep sats 90 - 95%. 3. Ceftriaxone, levaquin adjusted for renal function. 4. Sputum culture. 5. No fluid bolus - elevated BNP and pulmonary venous congestion. 6. Omeprazole. 7. Heparin bid sq. Overall impression: Critically ill with hypoxemic respiratory failure requiring BiPAP assisted ventilation. Probably some component of fluid overload and we will diurese her as well.. Critical care 40 mins Problem Qualifiers (1) Pneumonia: Qualified Code: J18.9 - Pneumonia of both lungs due to infectious organism, unspecified part of lung Asher Taylor MD Sep 09, 2016 05:22
[2016-09-09] MEDS ORDERED: FUROSEMIDE 40 MG/4 ML VIAL IV PUSH ONE (05:30)
[2016-09-09] MEDS ORDERED: LEVOFLOXACIN 750 MG/DEXTROSE 150 ML IV ONE (06:00)
[2016-09-09] MEDS: LEVOTHYROXINE SODIUM 125 MCG TAB PO SCH (06:00)
[2016-09-09] MEDS: INSULIN ASPART SUPPLEMENTAL SCALE SQ SCH ×3 (06:21→18:14)
[2016-09-09] MEDS: GABAPENTIN 100 MG CAP PO SCH ×2 (08:46→20:47)
[2016-09-09] MEDS: DILTIAZEM-CD 300 MG CAP ER PO SCH (08:46)
[2016-09-09] MEDS: PANTOPRAZOLE SOD 20 MG DELAYED RELEASE TAB PO SCH ×2 (08:46→20:47)
[2016-09-09] MEDS: SODIUM CHLORIDE 0.9% FLUSH 5 ML FLUSH IV FLUSH SCH ×2 (08:46→20:47)
[2016-09-09] MEDS: METOPROLOL TARTRATE 50 MG TAB PO SCH ×2 (08:46→20:48)
[2016-09-09] MEDS: APIXABAN 2.5 MG TABLET PO SCH ×2 (08:46→20:47)
[2016-09-09] MEDS: INSULIN DETEMIR 100 UNITS/ML VIAL SQ SCH ×2 (08:47→20:48)
[2016-09-09] MEDS: DOCUSATE SODIUM 100 MG CAP PO SCH ×2 (08:47→20:46)
[2016-09-09] MEDS: HEPARIN SODIUM - SQ 10,000 UNITS/ML VIAL SQ SCH ×2 (09:21→20:49)
--- NOTE | 2016-09-09 19:21 | EKG ---
Date Performed: 09/09/2016 Time Performed: 02:56:49 PTAGE: 81 years EKG: Sinus rhythm WITH FIRST DEGREE AV BLOCK ABNORMAL ECG PREVIOUS TRACING : 07/20/2015 20.03 Compared to prior tracing no significant change DOCTOR: Josh Toribio Interpretating Date/Time 09/09/2016 19:19:58
[2016-09-09] MEDS: ATORVASTATIN 20 MG TAB PO SCH (20:47)
[2016-09-09] MEDS: CHLORHEXIDINE GLUCONATE 2 % 1 PACK (2 CLOTHS) TOP SCH (22:00)
[2016-09-10] VITALS (14 sets, daily range): BP systolic 119–156; BP diastolic 60–86; PULSE 59–129; RESP 17–24; TEMP 98–98.5; O2SAT 95–100
[2016-09-10] MEDS: RESP: ALBUTEROL 2.5 MG/IPRATROPIUM 0.5 MG NEB (SCH) INH ×4 (03:48→22:00)
[2016-09-10 04:30] LABS: AUTOMATED NEUTROPHIL # 6.4 TH/MM3 (1.8-7.7); BASOPHIL % 0.1 % (0.0-2.0); HEMO FLAGS DIFF FINAL; LYMPH % 4.6 % (9.0-44.0); LYMPHOCYTE # 0.3 TH/MM3 (1.0-4.8); MEAN CELL VOLUME 91.5 FL (80.0-100.0); MEAN CORPUSCULAR HGB CONC 32.7 % (32.0-36.0); MONO % 11.5 % (0.0-8.0); NEUT % 83.8 % (16.0-70.0); PLATELET COUNT 162 TH/MM3 (150-450); RED BLOOD COUNT 2.95 MIL/MM3 (4.00-5.30); RED CELL DISTRIBUTION WIDTH 14.1 % (11.6-17.2); WHITE BLOOD COUNT 7.6 TH/MM3 (4.0-11.0)
[2016-09-10 06:00] LABS: ALKALINE PHOSPHATASE 69 U/L (45-117); ALT (GPT) 15 U/L (10-53); ANION GAP 10 MEQ/L (5-15); AST (GOT) 12 U/L (15-37); BICARBONATE 28.3 MEQ/L (21.0-32.0); BLOOD UREA NITROGEN 36 MG/DL (7-18); CHLORIDE 96 MEQ/L (98-107); GLOMERULAR FILTRATION RATE 16 ML/MIN (>89); MAGNESIUM 2.1 MG/DL (1.5-2.5); POTASSIUM 4.5 MEQ/L (3.5-5.1); SODIUM (NA) 134 MEQ/L (136-145); TOTAL BILIRUBIN ADULT 0.2 MG/DL (0.2-1.0)
[2016-09-10] MEDS: INSULIN ASPART SUPPLEMENTAL SCALE SQ SCH ×5 (06:01→23:19)
[2016-09-10] MEDS: LEVOTHYROXINE SODIUM 125 MCG TAB PO SCH (06:01)
[2016-09-10] MEDS: cefTRIAXone INJ 1,000 MG in SODIUM CHLORIDE 0.9% INJ 100 ML IV SCH (06:02)
[2016-09-10] MEDS: DOCUSATE SODIUM 100 MG CAP PO SCH ×2 (09:00→19:56)
[2016-09-10] MEDS: SODIUM CHLORIDE 0.9% FLUSH 5 ML FLUSH IV FLUSH SCH ×2 (09:00→19:56)
[2016-09-10] MEDS: APIXABAN 2.5 MG TABLET PO SCH ×2 (09:07→19:51)
[2016-09-10] MEDS: DILTIAZEM-CD 300 MG CAP ER PO SCH (09:07)
[2016-09-10] MEDS: PANTOPRAZOLE SOD 20 MG DELAYED RELEASE TAB PO SCH ×2 (09:08→19:51)
[2016-09-10] MEDS: GABAPENTIN 100 MG CAP PO SCH ×2 (09:08→19:51)
[2016-09-10] MEDS: INSULIN DETEMIR 100 UNITS/ML VIAL SQ SCH ×2 (09:08→19:51)
[2016-09-10] MEDS: METOPROLOL TARTRATE 50 MG TAB PO SCH (09:08)
[2016-09-10] MEDS: HEPARIN SODIUM - SQ 10,000 UNITS/ML VIAL SQ SCH ×2 (09:09→19:50)
--- NOTE | 2016-09-10 12:28 | HHI.PR ---
Subjective Remarks Transfer of care from licensed esthetician and Follow up on pneumonia and respiratory failure Patient complained of persistent dry cough that makes her feel she wants to vomit, no chest pain Objective Vitals Vital Signs Date Time Temp Pulse Resp B/P Pulse Ox O2 Delivery O2 Flow Rate FiO2 09/10/16 10:00 63 09/10/16 09:54 95 Nasal Cannula 2.00 09/10/16 08:00 98.2 66 20 128/60 97 09/10/16 08:00 66 09/10/16 07:00 96 Nasal Cannula 2.00 09/10/16 06:00 67 09/10/16 04:00 98.0 64 18 129/63 96 09/10/16 04:00 64 09/10/16 02:00 59 09/10/16 00:30 87 Nasal Cannula 3.00 09/10/16 00:00 98.2 65 18 123/61 95 09/10/16 00:00 65 09/09/16 22:00 74 09/09/16 21:33 99 Nasal Cannula 2.00 09/09/16 20:40 97 Nasal Cannula 3.00 09/09/16 20:00 95 Nasal Cannula 2.00 09/09/16 20:00 70 09/09/16 20:00 98.5 70 18 119/55 95 09/09/16 18:00 68 09/09/16 16:00 98.5 62 17 112/63 94 09/09/16 16:00 62 09/09/16 15:00 64 09/09/16 14:00 83 I/O 09/09/16 09/09/16 09/09/16 09/10/16 09/10/16 09/10/16 07:00 15:00 23:00 07:00 15:00 23:00 Intake Total 200 ml 775 ml 435 ml Output Total 500 ml 500 ml 1 ml Balance -300 ml 275 ml 434 ml Intake Oral 50 ml 480 ml 360 ml IV Total 150 ml 295 ml 75 ml Output Urine Total 500 ml 500 ml 1 ml Stool Total 0 ml # Voids 2 # Bowel Movements 1 1 Result Diagram: 09/10/167 09/10/16346 Objective Remarks GENERAL: This is a obese 72 years old female, well-developed patient, in no apparent distress. SKIN: No rashes, warm and dry HEAD: Atraumatic. Normocephalic. EYES: Pupils equal round and reactive. Extraocular motions intact. No scleral icterus. ENT: Nose without bleeding, or drainage, Airway patent. NECK: Trachea midline. Supple CARDIOVASCULAR: Regular rate and rhythm without murmurs, gallops, or rubs. RESPIRATORY: Diminished air entry relatively bibasilar. No wheezes, rales, or rhonchi. GASTROINTESTINAL: Abdomen soft, non-tender, nondistended. Positive bowel sounds MUSCULOSKELETAL: Extremities without clubbing, cyanosis, or edema. Pedal pulses appreciated NEUROLOGICAL: Awake and alert. Moves all extremity. Normal speech.no focal neurological deficit A/P Problem List: (1) Acute hypoxemic respiratory failure ICD Code: J96.01 Status: Acute Assessment and Plan Acute hypoxemic was to refill her Pneumonia community-acquired YAMILKA on CKD baseline 1.7>> creatinine increased to 3.3 today Elevated BMP>>Dropped from 495-298 Hyperglycemia DVT prophylaxis Plan: Admitted to ICU BiPAP as needed, keep O2 sat above 92% O2, DuoNeb, Solu-Medrol Sputum culture, urine antigen for Legionella and pneumococcus Started on ceftriaxone and Levaquin per licensed esthetician at admission No iv fluid, elevated BNP and pulmonary congestion Continue omeprazole Heparin for DVT prophylaxis Johnson Hook MD Sep 10, 2016 12:28
[2016-09-10] MEDS: METOPROLOL TARTRATE 25 MG TAB PO SCH (19:50)
[2016-09-10] MEDS: ATORVASTATIN 20 MG TAB PO SCH (19:50)
[2016-09-10] MEDS ORDERED: METOPROLOL TARTRATE 5 MG/5 ML VIAL IV PUSH ONE (21:00)
[2016-09-10 21:44] LABS: AUTOMATED NEUTROPHIL # 8.1 TH/MM3 (1.8-7.7); BASOPHIL % 0.3 % (0.0-2.0); HEMATOCRIT 28.3 % (35.0-46.0); HEMO FLAGS DIFF FINAL; LYMPH % 4.7 % (9.0-44.0); LYMPHOCYTE # 0.4 TH/MM3 (1.0-4.8); MEAN CELL VOLUME 91.9 FL (80.0-100.0); MEAN CORPUSCULAR HGB CONC 32.6 % (32.0-36.0); MONO % 9.1 % (0.0-8.0); NEUT % 85.9 % (16.0-70.0); PLATELET COUNT 186 TH/MM3 (150-450); RED BLOOD COUNT 3.08 MIL/MM3 (4.00-5.30); RED CELL DISTRIBUTION WIDTH 14.3 % (11.6-17.2); WHITE BLOOD COUNT 9.5 TH/MM3 (4.0-11.0)
[2016-09-10] MEDS ORDERED: SODIUM CHLORID 0.9% 500 ML INJ 500 ML IV ONE (21:45)
[2016-09-10 22:23] LABS: MAGNESIUM 2.1 MG/DL (1.5-2.5)
[2016-09-10 22:37] LABS: CREATINE KINASE 136 U/L (26-192)
[2016-09-10 22:49] LABS: CKMB 1.3 NG/ML (0.5-3.6)
[2016-09-10] MEDS ORDERED: ONDANSETRON ODT 4 MG TAB SL PRN (23:16)
[2016-09-10 23:43] LABS: BICARBONATE 27.9 MEQ/L (21.0-32.0); POTASSIUM 4.3 MEQ/L (3.5-5.1)
[2016-09-11] VITALS (10 sets, daily range): BP systolic 104–135; BP diastolic 52–73; PULSE 62–128; RESP 16–20; TEMP 97.3–98.8; O2SAT 95–100
[2016-09-11 01:29] LABS: ANION GAP 9 MEQ/L (5-15); BICARBONATE 27.6 MEQ/L (21.0-32.0); BLOOD UREA NITROGEN 41 MG/DL (7-18); CHLORIDE 100 MEQ/L (98-107); GLOMERULAR FILTRATION RATE 18 ML/MIN (>89); POTASSIUM 4.3 MEQ/L (3.5-5.1); SODIUM (NA) 137 MEQ/L (136-145)
[2016-09-11 01:33] LABS: CREATINE KINASE 148 U/L (26-192)
[2016-09-11 01:45] LABS: CKMB 1.7 NG/ML (0.5-3.6)
[2016-09-11] MEDS: RESP: ALBUTEROL 2.5 MG/IPRATROPIUM 0.5 MG NEB (SCH) INH ×4 (03:38→21:42)
[2016-09-11] MEDS: CHLORHEXIDINE GLUCONATE 2 % 1 PACK (2 CLOTHS) TOP SCH (04:00)
[2016-09-11] MEDS: cefTRIAXone INJ 1,000 MG in SODIUM CHLORIDE 0.9% INJ 100 ML IV SCH (05:33)
[2016-09-11] MEDS: LEVOTHYROXINE SODIUM 125 MCG TAB PO SCH (05:33)
[2016-09-11] MEDS: INSULIN ASPART SUPPLEMENTAL SCALE SQ SCH ×3 (05:36→17:39)
[2016-09-11] MEDS ORDERED: LEVOFLOXACIN 500 MG PREMIX INJ 100 ML IV SCH (06:00)
[2016-09-11 07:50] LABS: HEMATOCRIT 29.6 % (35.0-46.0); HEMO FLAGS AUTO DIFF; MEAN CELL VOLUME 91.8 FL (80.0-100.0); MEAN CORPUSCULAR HEMOGLOBIN 29.6 PG (27.0-34.0); MEAN CORPUSCULAR HGB CONC 32.3 % (32.0-36.0); PLATELET COUNT 179 TH/MM3 (150-450); RED BLOOD COUNT 3.23 MIL/MM3 (4.00-5.30); RED CELL DISTRIBUTION WIDTH 14.4 % (11.6-17.2); WHITE BLOOD COUNT 9.4 TH/MM3 (4.0-11.0)
--- NOTE | 2016-09-11 08:37 | HHI.PR ---
Subjective Remarks Patient seen in follow-up for acute respiratory failure secondary to pneumonia, acute on chronic renal failure, chronic atrial fibrillation. Patient reports that she is feeling better. No chest pain. She reports that her breathing has improved. Objective Vitals Vital Signs Date Time Temp Pulse Resp B/P Pulse Ox O2 Delivery O2 Flow Rate FiO2 09/11/16 06:00 66 09/11/16 04:00 98.8 68 20 104/52 95 09/11/16 04:00 68 09/11/16 00:00 98.2 128 18 124/73 96 09/11/16 00:00 128 09/10/16 22:00 128 09/10/16 20:25 100 Nasal Cannula 2.00 09/10/16 20:00 98.0 129 24 155/86 97 09/10/16 20:00 129 09/10/16 19:00 99 Nasal Cannula 2.00 09/10/16 18:00 127 09/10/16 16:00 98.5 125 21 156/74 95 09/10/16 16:00 125 09/10/16 14:00 67 09/10/16 12:00 64 09/10/16 12:00 98.3 64 17 119/61 95 09/10/16 10:00 63 09/10/16 09:54 95 Nasal Cannula 2.00 I/O 09/10/16 09/10/16 09/10/16 09/11/16 09/11/16 09/11/16 07:00 15:00 23:00 07:00 15:00 23:00 Intake Total 435 ml 653 ml 580 ml 600 ml Output Total 1 ml Balance 434 ml 653 ml 580 ml 600 ml Intake Oral 360 ml 480 ml 480 ml 100 ml IV Total 75 ml 173 ml 100 ml 500 ml Output Urine Total 1 ml # Voids 1 2 1 # Bowel Movements 1 1 0 0 Result Diagram: 09/11/16 0620 09/11/16 0047 Imaging Last Impressions Chest X-Ray 09/09/16 0248 Signed Impressions: Service Date/Time: Friday, September 09, 2016 03:11 - CONCLUSION: Multifocal bilateral lower lung infiltrates. Claudio Fleming MD Objective Remarks GENERAL: Obese female in no apparent distress. CARDIOVASCULAR: Normal rate and regular rhythm without murmurs, gallops, or rubs. RESPIRATORY: Good respiratory efforts. Breath sounds equal and clear to auscultation bilaterally. GASTROINTESTINAL: Abdomen soft, non-tender, non-distended. Normal active bowel sounds MUSCULOSKELETAL: Extremities without cyanosis, or edema. NEURO: Alert & Oriented x4 to person, place, time, situation. Moves all ext x4 PSYCH: Appropriate mood and affect. A/P Problem List: (1) Acute hypoxemic respiratory failure ICD Code: J96.01 Status: Acute (2) Pneumonia ICD Code: J18.9 Status: Acute (3) Acute on chronic renal insufficiency ICD Code: N28.9 Status: Acute (4) Atrial fibrillation ICD Code: I48.91 Status: Acute Assessment and Plan 81-year-old female with: Acute respiratory failure secondary to community-acquired pneumonia: Improving. - Continue Rocephin and renal dose Levaquin. - Submental oxygen. Breathing treatments, Acapella. - BiPAP as needed. YAMILKA on CKD: Likely secondary to above, baseline around 1.7. Improving. - Avoid nephrotoxins. Follow up BMP in a.m. Pulmonary vascular congestion and elevated BNP: - Avoid bolus IV fluid. Continue to monitor Atrial fibrillation: Continue metoprolol, diltiazem and Eliquis. Reviewed EKG from yesterday with RN. Episode of tachycardia, no definite P waves. Continue to monitor on telemetry Diabetes: Levemir 8 units twice a day. SSI with Accu-Cheks. GI prophylaxis: PPI. Stool softener PRN constipation. Continue chronic home meds as indicated. DVT PPx: On Eliquis. Discharge Planning Improving. Transfer to floor today. Problem Qualifiers (1) Pneumonia: Qualified Code: J18.9 - Pneumonia of both lungs due to infectious organism, unspecified part of lung Norberto Palacios MD Sep 11, 2016 08:37
[2016-09-11] MEDS: SODIUM CHLORIDE 0.9% FLUSH 5 ML FLUSH IV FLUSH SCH ×2 (09:00→21:20)
[2016-09-11] MEDS: DOCUSATE SODIUM 100 MG CAP PO SCH ×2 (09:00→21:00)
[2016-09-11] MEDS: APIXABAN 2.5 MG TABLET PO SCH ×2 (09:27→21:22)
[2016-09-11] MEDS: LISINOPRIL 20 MG TAB PO SCH (09:27)
[2016-09-11] MEDS: GABAPENTIN 100 MG CAP PO SCH ×2 (09:27→21:22)
[2016-09-11] MEDS: DILTIAZEM-CD 300 MG CAP ER PO SCH (09:27)
[2016-09-11] MEDS: INSULIN DETEMIR 100 UNITS/ML VIAL SQ SCH ×2 (09:27→21:21)
[2016-09-11] MEDS: METOPROLOL TARTRATE 25 MG TAB PO SCH ×2 (09:27→21:22)
[2016-09-11] MEDS: PANTOPRAZOLE SOD 20 MG DELAYED RELEASE TAB PO SCH ×2 (09:27→21:21)
[2016-09-11] MEDS: ACETAMINOPHEN 325 MG TAB PO PRN ×3 (10:16→21:22)
[2016-09-11 10:18] LABS: BANDS 1 % (0-6); BASOPHILS 1 % (0-2); CORRECTED NUCLEATED RBC 1 /100 WBC (0-0); EOSINOPHILS 1 % (0-4); METAMYELOCYTES 1 % (0-1); MYELOCYTES 1 % (0-0); NEUTROPHIL # MANUAL DIFF 7.9 TH/MM3 (1.8-7.7); POLYS (SEG NEUTROPHILS) 81 % (16-70); WBC DIFF SAMPLE 100
[2016-09-11 10:19] LABS: PLATELET ESTIMATE SMEAR NORMAL (NORMAL); PLATELET MORPHOLOGY NORMAL (NORMAL); SCAN/DIFF FINAL DIFF MANUAL
[2016-09-11] MEDS: ATORVASTATIN 20 MG TAB PO SCH (21:21)
[2016-09-12] VITALS (8 sets, daily range): BP systolic 143–162; BP diastolic 64–83; PULSE 61–79; RESP 14–22; TEMP 97.7–98.4; O2SAT 92–100
[2016-09-12] MEDS: CHLORHEXIDINE GLUCONATE 2 % 1 PACK (2 CLOTHS) TOP SCH (00:32)
[2016-09-12] MEDS: cefTRIAXone INJ 1,000 MG in SODIUM CHLORIDE 0.9% INJ 100 ML IV SCH (05:23)
[2016-09-12] MEDS: INSULIN ASPART SUPPLEMENTAL SCALE SQ SCH ×5 (05:23→22:21)
[2016-09-12] MEDS: RESP: ALBUTEROL 2.5 MG/IPRATROPIUM 0.5 MG NEB (SCH) INH ×4 (05:23→21:10)
[2016-09-12] MEDS: LEVOTHYROXINE SODIUM 125 MCG TAB PO SCH (05:25)
[2016-09-12 07:27] LABS: HEMATOCRIT 31.9 % (35.0-46.0); MEAN CELL VOLUME 92.5 FL (80.0-100.0); MEAN CORPUSCULAR HEMOGLOBIN 29.8 PG (27.0-34.0); MEAN CORPUSCULAR HGB CONC 32.3 % (32.0-36.0); PLATELET COUNT 175 TH/MM3 (150-450); RED BLOOD COUNT 3.45 MIL/MM3 (4.00-5.30); RED CELL DISTRIBUTION WIDTH 14.3 % (11.6-17.2); REVIEW FLAG FINAL; WHITE BLOOD COUNT 5.3 TH/MM3 (4.0-11.0)
[2016-09-12 07:39] LABS: BICARBONATE 29.8 MEQ/L (21.0-32.0); POTASSIUM 4.3 MEQ/L (3.5-5.1)
[2016-09-12] MEDS: DOCUSATE SODIUM 100 MG CAP PO SCH ×2 (09:00→21:00)
[2016-09-12] MEDS: DILTIAZEM-CD 300 MG CAP ER PO SCH (09:39)
[2016-09-12] MEDS: SODIUM CHLORIDE 0.9% FLUSH 5 ML FLUSH IV FLUSH SCH ×2 (09:39→22:19)
[2016-09-12] MEDS: GABAPENTIN 100 MG CAP PO SCH ×2 (09:40→22:20)
[2016-09-12] MEDS: APIXABAN 2.5 MG TABLET PO SCH ×2 (09:40→22:20)
[2016-09-12] MEDS: METOPROLOL TARTRATE 25 MG TAB PO SCH ×2 (09:40→22:21)
[2016-09-12] MEDS: INSULIN DETEMIR 100 UNITS/ML VIAL SQ SCH ×2 (09:41→21:00)
[2016-09-12] MEDS: LISINOPRIL 20 MG TAB PO SCH (09:41)
[2016-09-12] MEDS: PANTOPRAZOLE SOD 20 MG DELAYED RELEASE TAB PO SCH ×2 (09:41→22:20)
[2016-09-12] MEDS ORDERED: METO-426 PO (14:02)
[2016-09-12] MEDS ORDERED: LEVA750T PO (14:02)
--- NOTE | 2016-09-12 14:06 | HHI.DS ---
Discharge Summary Admission Date Sep 09, 2016 at 04:10 Discharge Date: Sep 12, 2016 Admitting Diagnosis pneumonia, respiratory distress, renal insufficiency, hyperglycemia (1) Acute hypoxemic respiratory failure ICD Code: J96.01 (2) Pneumonia ICD Code: J18.9 (3) Acute on chronic renal insufficiency ICD Code: N28.9 (4) Atrial fibrillation ICD Code: I48.91 Procedures None Brief History - From Admission 81-year-old female brought by EMS for O2 saturation was in the 40s. End-tidal CO2 was in the 60s. CXR with new infiltrates right and left lungs. She has felt sick for several days and was in ED 3 days ago for abdominal discomfort. Clearly respiratory distress on arrival - improved with BiPAP. CBC/BMP: 09/12/16 0703 09/12/16 0703 Significant Findings Laboratory Tests Test 09/10/16 09/10/16 09/11/16 09/11/16 03:47 18:51 00:47 06:20 Red Blood Count 2.95 MIL/MM3 3.08 MIL/MM3 3.23 MIL/MM3 (4.00-5.30) (4.00-5.30) (4.00-5.30) Hemoglobin 8.8 GM/DL 9.2 GM/DL 9.6 GM/DL (11.6-15.3) (11.6-15.3) (11.6-15.3) Hematocrit 27.0 % 28.3 % 29.6 % (35.0-46.0) (35.0-46.0) (35.0-46.0) Neutrophils (%) (Auto) 83.8 % 85.9 % (16.0-70.0) (16.0-70.0) Lymphocytes (%) (Auto) 4.6 % 4.7 % (9.0-44.0) (9.0-44.0) Monocytes (%) (Auto) 11.5 % 9.1 % (0.0-8.0) (0.0-8.0) Lymphocytes # (Auto) 0.3 TH/MM3 0.4 TH/MM3 (1.0-4.8) (1.0-4.8) Sodium Level 134 MEQ/L 135 MEQ/L (136-145) (136-145) Chloride Level 96 MEQ/L 95 MEQ/L (98-107) (98-107) Blood Urea Nitrogen 36 MG/DL (7-18) 41 MG/DL (7-18) 41 MG/DL (7-18) Creatinine 3.30 MG/DL 3.27 MG/DL 2.98 MG/DL (0.50-1.00) (0.50-1.00) (0.50-1.00) Estimat Glomerular Filtration 16 ML/MIN (>89) 16 ML/MIN (>89) 18 ML/MIN (>89) Rate Random Glucose 214 MG/DL 156 MG/DL 132 MG/DL (74-106) (74-106) (74-106) Aspartate Amino Transf 12 U/L (15-37) (AST/SGOT) B-Type Natriuretic Peptide 298 PG/ML 405 PG/ML (0-100) (0-100) Albumin 3.0 GM/DL (3.4-5.0) Neutrophils # (Auto) 8.1 TH/MM3 (1.8-7.7) Neutrophils % (Manual) 81 % (16-70) Lymphocytes % 7 % (9-44) Neutrophils # (Manual) 7.9 TH/MM3 (1.8-7.7) Myelocytes 1 % (0-0) Nucleated Red Blood Cells 1 /100 WBC (0-0) Test 09/12/16 07:03 Red Blood Count 3.45 MIL/MM3 (4.00-5.30) Hemoglobin 10.3 GM/DL (11.6-15.3) Hematocrit 31.9 % (35.0-46.0) Blood Urea Nitrogen 39 MG/DL (7-18) Creatinine 2.74 MG/DL (0.50-1.00) Estimat Glomerular Filtration 20 ML/MIN (>89) Rate Imaging Last Impressions Chest X-Ray 09/09/16 0248 Signed Impressions: Service Date/Time: Friday, September 09, 2016 03:11 - CONCLUSION: Multifocal bilateral lower lung infiltrates. Claudio Fleming MD PE at Discharge GENERAL: Obese female in no apparent distress. CARDIOVASCULAR: Normal rate and regular rhythm without murmurs, gallops, or rubs. RESPIRATORY: Good respiratory efforts. Breath sounds equal and clear to auscultation bilaterally. GASTROINTESTINAL: Abdomen soft, non-tender, non-distended. Normal active bowel sounds MUSCULOSKELETAL: Extremities without cyanosis, or edema. NEURO: Alert & Oriented x4 to person, place, time, situation. Moves all ext x4 PSYCH: Appropriate mood and affect. Pt update on day of discharge Patient reports feeling much better. Breathing comfortably. Needs SNF for rehab per PT assessment. She is agreeable. Hospital Course 81-year-old female admitted and treated for the following: Acute respiratory failure secondary to community-acquired pneumonia: Initially the patient required BiPAP. She improved with antibiotics, Rocephin and Levaquin. Supplemental oxygen and breathing treatments. She is discharged home to complete treatment with antibiotics. YAMILKA on CKD: Likely secondary to above, renal function stabilized and improved. Avoid nephrotoxins. Patient is advised to follow-up with PCP. Physical deconditioning: Secondary to acute illness. Patient is discharged to a senior care facility to continue with rehabilitation. Atrial fibrillation: Continue metoprolol, diltiazem and Eliquis. Diabetes: Levemir 8 units twice a day. SSI with Accu-Cheks. Pt Condition on Discharge: Stable Discharge Disposition: Discharge to SNF Discharge Time: > 30 minutes Discharge Instructions DIET: Follow Instructions for: Diabetic Diet Activities you can perform: See Additionl Instruction Other Activity Instructions: Per PT instructions. Needs assistance. Follow up Referrals: SNF/[facility]/ New Medications: Levofloxacin (Levaquin) 750 Mg Tab 750 MG PO Q48H #7 TAB Changed Medications: Metoprolol Tartrate (Metoprolol Tartrate) 75 Mg Tab 75 MG PO BID #60 Ref 0 TAB (Changed from: Metoprolol Tartrate 50 Mg Tab 50 Mg PO BID #60 TAB Ref 0) Continued Medications: Apixaban (Eliquis) 2.5 Mg Tab 2.5 MG PO BID Blood Clot Prevention Ref 0 TAB Atorvastatin (Atorvastatin) 20 Mg Tab 20 MG PO HS Cholesterol Management #30 Ref 0 TAB Calcitriol (Calcitriol) 0.25 Mcg Cap 0.25 MCG PO DAILY Calcium Supplement #30 Ref 0 CAP Cholecalciferol (Vitamin D) 400 Unit Cap Diltiazem ER 24 HR (Diltiazem ER 24 HR) 300 Mg Lexy 300 MG PO DAILY #30 Ref 0 TAB Gabapentin (Gabapentin) 100 Mg Cap 100 MG PO BID #60 Ref 0 CAP Insulin Glargine Inj (Lantus Solostar Pen Inj) 300 Unit/3 Ml Pen 1 UNITS SQ Blood Sugar Management Ref 0 PEN Levothyroxine (Levothyroxine) 125 Mcg Tab 125 MCG PO DAILY Thyroid #30 Ref 0 TAB Lisinopril (Lisinopril) 40 Mg Tab 40 MG PO DAILY Blood Pressure Management #30 Ref 0 TAB Multiple Vitamins W/ Minerals (Multivitamin Gummies Adul) 1 Chw Chw Omeprazole (Omeprazole) 20 Mg Tab 20 MG PO BID #30 Ref 0 TAB Discontinued Medications: Ondansetron Odt (Zofran Odt) 4 Mg Tab 4 MG SL Q6HR PRN Nausea/Vomiting #7 Ref 0 TAB Sulfamethoxazole-Trimethoprim (Bactrim DS) 800-160 Mg Tab 1 TAB PO BID Infection #14 Ref 0 TAB Norberto Palacios MD Sep 12, 2016 14:06
--- NOTE | 2016-09-12 18:01 | EKG ---
Date Performed: 09/10/2016 Time Performed: 17:04:22 PTAGE: 81 years EKG: Probable accelerated junctional rhythm. Inferior T wave changes are nonspecific A rhythm st rip is advised, as this rhythm could also be reentry With a long RP, or possibly Sinus rhythm with first degree AV Block. Never the less the rhythm disturbance is new since the prior Tracing, cl inical correlation is suggested. Abnormal ECG PREVIOUS TRACING : 09/09/2016 02.56 DOCTOR: Kierra Daigle Interpretating Date/Time 09/12/2016 17:59:41
[2016-09-12] MEDS: ATORVASTATIN 20 MG TAB PO SCH (22:20)
[2016-09-13 00:53] VITALS: BP 113/75; PULSE 69; RESP 22; TEMP 98.4; O2SAT 99
[2016-09-13] MEDS: CHLORHEXIDINE GLUCONATE 2 % 1 PACK (2 CLOTHS) TOP SCH (01:48)
[2016-09-13] MEDS: RESP: ALBUTEROL 2.5 MG/IPRATROPIUM 0.5 MG NEB (SCH) INH ×2 (03:43→09:36)
[2016-09-13 03:45] VITALS: O2SAT 99
[2016-09-13] MEDS: cefTRIAXone INJ 1,000 MG in SODIUM CHLORIDE 0.9% INJ 100 ML IV SCH (05:28)
[2016-09-13] MEDS: LEVOTHYROXINE SODIUM 125 MCG TAB PO SCH (05:28)
[2016-09-13] MEDS: INSULIN ASPART SUPPLEMENTAL SCALE SQ SCH (05:31)
[2016-09-13 05:36] VITALS: BP 125/62; PULSE 64; RESP 20; TEMP 98.2; O2SAT 96
[2016-09-13] MEDS ORDERED: LEVOFLOXACIN 750 MG TAB PO SCH (06:00)
[2016-09-13 08:00] VITALS: BP 165/78; PULSE 70; RESP 16; TEMP 97.9; O2SAT 97
[2016-09-13 09:38] VITALS: O2SAT 94
[2016-09-13] MEDS: DOCUSATE SODIUM 100 MG CAP PO SCH (10:00)
[2016-09-13] MEDS: DILTIAZEM-CD 300 MG CAP ER PO SCH (10:00)
[2016-09-13] MEDS: SODIUM CHLORIDE 0.9% FLUSH 5 ML FLUSH IV FLUSH SCH (10:00)
[2016-09-13] MEDS: LISINOPRIL 20 MG TAB PO SCH (10:01)
[2016-09-13] MEDS: GABAPENTIN 100 MG CAP PO SCH (10:01)
[2016-09-13] MEDS: METOPROLOL TARTRATE 25 MG TAB PO SCH (10:01)
[2016-09-13] MEDS: APIXABAN 2.5 MG TABLET PO SCH (10:01)
[2016-09-13] MEDS: PANTOPRAZOLE SOD 20 MG DELAYED RELEASE TAB PO SCH (10:02)
[2016-09-13] MEDS: INSULIN DETEMIR 100 UNITS/ML VIAL SQ SCH (10:02)
== END 2016-09-13 10:40 | DRG 193 ==
LOC: NEPE 02:45 → NEDA 04:10 → HIME 07:05 → N04A 09-11 16:20
PROVIDERS: ADMIT Family Medicine; ATTEND Family Medicine
PROC: 5A09357 Assistance with Respiratory Ventilation, Less than 24 Consecutive Hours, Continuous Positive Airway Pressure (ICD-10-PCS; principal; 2016-09-09)
DX: J18.9 Pneumonia, unspecified organism (principal); J96.01 Acute respiratory failure with hypoxia; N17.9 Acute kidney failure, unspecified; E11.22 Type 2 diabetes mellitus with diabetic chronic kidney disease; E11.65 Type 2 diabetes mellitus with hyperglycemia; N18.9 Chronic kidney disease, unspecified; I12.9 Hypertensive chronic kidney disease with stage 1 through stage 4 chronic kidney disease, or unspecified chronic kidney disease; M10.9 Gout, unspecified; E78.00 Pure hypercholesterolemia, unspecified; E87.70 Fluid overload, unspecified; I48.2 Chronic atrial fibrillation; Z79.01 Long term (current) use of anticoagulants; Z79.4 Long term (current) use of insulin
CPT/HCPCS: 36600; 71010; 74176; 80048; 80053; 81001; 82550; 82552; 82805; 82948; 83605; 83690; 83735; 83880; 84100; 84484; 85007; 85025; 85027; 85610; 85730; 87040; 87086; 87641; 87804; 93005; 94002; 94640; 94664; 94667; 94668; 96361; 96365; 96374; 96375; J0456; J0692; J0696; J1644; J1815; J1940; J1956; J2270; J2405; J2930; J7030; J7040; J7050

== ENCOUNTER 2016-10-02 09:41 | Inpatient (IN) | payer OTHER, MEDICARE ==
[~2016-10-02] VITALS: Ht 162.6 cm; Wt 111.5 kg
[2016-10-02] VITALS (15 sets, daily range): BP systolic 88–214; BP diastolic 57–116; PULSE 58–84; RESP 16–22; TEMP 97.8–98.2; O2SAT 75–98
[~2016-10-02 09:41] MED LIST changes: -BACT800T5 PO; +LEVA750T PO; +METO-426 PO; -METO50TA PO; -ZOFR4TAB3 SL
[2016-10-02] MEDS ORDERED: RESP: ALBUTEROL 2.5 MG/IPRATROPIUM 0.5 MG NEB (SCH) NEB ONE (10:15)
--- NOTE | 2016-10-02 10:22 | PD ---
HPI Chief Complaint: Respiratory Symptoms Time Seen by Provider: 09:51 Travel History International Travel<30 days: No Contact w/Intl Traveler<30days: No Traveled to known affect area: No History of Present Illness HPI 81-year-old female presents with difficulty breathing over the past couple hours this morning. She confirms that she was recently in the hospital with pneumonia. She states she completed all of her antibiotics. She states she followed with her primary care physician Monday and she was doing fine. She states she does not wear oxygen at home. She states she feels worse when she moves around. She denies other concurrent complaints currently. She states she has a hard time getting breath in. Patient states she has a breathing machine that she uses to help her sometimes. She denies other modifying factors on initial exam but history is limited given hypoxia PFSH Past Medical History Hx Anticoagulant Therapy: Yes Arthritis: Yes (RIGHT SHOULDER,HIP AND FOOT) Asthma: No Atrial Fibrillation: Yes Autoimmune Disease: Yes (GOUT RIGHT FOOT) Blood Disorders: No Anxiety: No Depression: No Heart Rhythm Problems: No Cancer: No Cardiovascular Problems: Yes (a fib, dvt) High Cholesterol: Yes Chemotherapy: No Chest Pain: No Congestive Heart Failure: No COPD: No Cerebrovascular Accident: No Diabetes: Yes Patient Takes Glucophage: No Diminished Hearing: No Endocrine: Yes Gastrointestinal Disorders: No GERD: No Glaucoma: No Gout: Yes Genitourinary: No Headaches: No Hepatitis: No Hiatal Hernia: No Hypertension: Yes Immune Disorder: No Implanted Vascular Access Dvce: No Kidney Stones: No Medical other: No Musculoskeletal: Yes Neurologic: No Psychiatric: No Reproductive: No Respiratory: No Myocardial Infarction: No Radiation Therapy: No Renal Failure: No Seizures: No Sickle Cell Disease: No Sleep Apnea: No Thyroid Disease: Yes Ulcer: No PNEUMOCCOCAL Vaccine (Year): 2 Menopausal: Yes : 5 Para: 2 Miscarriage: 1 Past Surgical History Abdominal Surgery: Yes (SMALL INTESTINE SX) AICD: No Arteriovenous Shunt: No Cholecystectomy: Yes Eye Surgery: Yes (BILAT CATARACT) Insulin Pump: No Joint Replacement: No Neurologic Surgery: No Pacemaker: No Other Surgery: Yes (THYROIDECTOMY 2010) Social History Alcohol Use: Yes (OCCASIONALLY DRINKS WINE) Tobacco Use: No Substance Use: No Allergies-Medications (Allergen,Severity, Reaction): Coded Allergies: Celebrex (Verified Allergy, Severe, SYNCOPE, 10/02/16) Reported Meds & Prescriptions Reported Meds & Active Scripts Active Reported Metoprolol Tartrate 50 Mg Tab 50 Mg PO BID Lantus Solostar Pen Inj (Insulin Glargine) 300 Unit/3 Ml Pen 22 Units SQ HS Vitamin D (Cholecalciferol) 400 Unit Cap 400 Units PO BID Multivitamin Gummies Adul (Multiple Vitamins W/ Minerals) 1 Chw Chw 1 Chew PO BID Eliquis (Apixaban) 2.5 Mg Tab 2.5 Mg PO BID Calcitriol 0.25 Mcg Cap 0.25 Mcg PO DAILY Omeprazole 20 Mg Tab 20 Mg PO BID Gabapentin 100 Mg Cap 100 Mg PO BID Lisinopril 40 Mg Tab 40 Mg PO DAILY Atorvastatin (Atorvastatin Calcium) 20 Mg Tab 20 Mg PO HS Levothyroxine (Levothyroxine Sodium) 125 Mcg Tab 125 Mcg PO DAILY Diltiazem ER 24 HR 300 Mg Lexy 300 Mg PO DAILY Review of Systems Except as stated in HPI: all other systems reviewed are Neg Physical Exam Narrative GENERAL: Well-nourished, well-developed patient. SKIN: Warm and dry. HEAD: Normocephalic and atraumatic. EYES: No injection or drainage. ENT: No nasal drainage noted. NECK: Supple, trachea midline. CARDIOVASCULAR: Regular rate and rhythm RESPIRATORY: Decreased aeration bilaterally. No accessory muscle use. GASTROINTESTINAL: Abdomen soft, non-tender, nondistended. EXTREMITIES: No edema. NEUROLOGICAL: Awake. Moves all extremities. Normal speech. Data Data Last Documented VS Vital Signs Date Time Temp Pulse Resp B/P Pulse Ox O2 Delivery O2 Flow Rate FiO2 10/02/16 11:49 58 22 169/72 95 Nasal Cannula 4 10/02/16 09:46 97.8 Orders Electrocardiogram (10/02/16 ) Complete Blood Count With Diff (10/02/16 09:53) Comprehensive Metabolic Panel (10/02/16 09:53) Prothrombin Time / Inr (Pt) (10/02/16 09:53) Act Partial Throm Time (Ptt) (10/02/16 09:53) Lactic Acid Sepsis Protocol (10/02/16 09:53) Magnesium (Mg) (10/02/16 09:53) Phosphorus (Po4) (10/02/16 09:53) Lipase (10/02/16 09:53) Ckmb (Isoenzyme) Profile (10/02/16 09:53) Troponin I (10/02/16 09:53) Urinalysis - C+S If Indicated (10/02/16 09:53) Influenzae A/B Antigen (10/02/16 09:53) Blood Culture (10/02/16 09:53) Chest, Single Ap (10/02/16 09:53) Blood Glucose (10/02/16 09:53) Ecg Monitoring (10/02/16 09:53) Iv Access Insert/Monitor (10/02/16 09:53) Oximetry (10/02/16 09:53) Oxygen Administration (10/02/16 09:53) Urinary Catheter Insert/Apply (10/02/16 09:53) B-Type Natriuretic Peptide (10/02/16 10:03) Albuterol-Ipratropium Neb (Duoneb Neb) (10/02/16 10:15) Furosemide Inj (Lasix Inj) (10/02/16 11:15) Vascular Access Team Consult PRN (10/02/16 11:27) Vascular Poc Ultrasound (10/02/16 ) Oseltamivir (Tamiflu) (10/02/16 12:00) Sodium Chloride 0.9% Flush (Ns Flush) (10/02/16 12:00) Ceftriaxone Inj (Rocephin Inj) (10/02/16 12:00) Azithromycin Inj (Zithromax Inj) (10/02/16 12:00) Arterial Blood Gas (Abg) (10/02/16 ) Admit Order (Ed Use Only) (10/02/16 12:18) Labs Laboratory Tests Test 10/02/16 10/02/16 10:30 11:00 White Blood Count 9.4 TH/MM3 Red Blood Count 3.59 MIL/MM3 Hemoglobin 10.5 GM/DL Hematocrit 33.4 % Mean Corpuscular Volume 92.9 FL Mean Corpuscular Hemoglobin 29.3 PG Mean Corpuscular Hemoglobin 31.5 % Concent Red Cell Distribution Width 16.1 % Platelet Count 201 TH/MM3 Mean Platelet Volume 8.5 FL Neutrophils (%) (Auto) 81.8 % Lymphocytes (%) (Auto) 8.7 % Monocytes (%) (Auto) 7.2 % Eosinophils (%) (Auto) 2.0 % Basophils (%) (Auto) 0.3 % Neutrophils # (Auto) 7.6 TH/MM3 Lymphocytes # (Auto) 0.8 TH/MM3 Monocytes # (Auto) 0.7 TH/MM3 Eosinophils # (Auto) 0.2 TH/MM3 Basophils # (Auto) 0.0 TH/MM3 CBC Comment DIFF FINAL Differential Comment Prothrombin Time 10.8 SEC Prothromb Time International 1.0 RATIO Ratio Activated Partial 27.8 SEC Thromboplast Time Sodium Level 133 MEQ/L Potassium Level 4.4 MEQ/L Chloride Level 95 MEQ/L Carbon Dioxide Level 32.8 MEQ/L Anion Gap 5 MEQ/L Blood Urea Nitrogen 19 MG/DL Creatinine 2.16 MG/DL Estimat Glomerular Filtration 27 ML/MIN Rate Random Glucose 129 MG/DL Lactic Acid Level 0.8 mmol/L Calcium Level 9.5 MG/DL Phosphorus Level 4.3 MG/DL Magnesium Level 2.0 MG/DL Total Bilirubin 0.6 MG/DL Aspartate Amino Transf 11 U/L (AST/SGOT) Alanine Aminotransferase 15 U/L (ALT/SGPT) Alkaline Phosphatase 92 U/L Total Creatine Kinase 80 U/L Troponin I LESS THAN 0.02 NG/ML B-Type Natriuretic Peptide 318 PG/ML Total Protein 8.4 GM/DL Albumin 3.5 GM/DL Lipase 191 U/L Urine Color YELLOW Urine Turbidity HAZY Urine pH 6.5 Urine Specific [place] 1.015 Urine Protein 300 mg/dL Urine Glucose (UA) NEG mg/dL Urine Ketones NEG mg/dL Urine Occult Blood NEG Urine Nitrite NEG Urine Bilirubin NEG Urine Urobilinogen LESS THAN 2.0 MG/DL Urine Leukocyte Esterase TRACE Urine RBC 2 /hpf Urine WBC 5 /hpf Urine Squamous Epithelial 4 /hpf Cells Urine Transitional Epithelial <1 /hpf Cells Urine Amorphous Sediment FEW Urine Bacteria FEW /hpf Urine Yeast (Budding) RARE Microscopic Urinalysis Comment CULT NOT INDICATED MDM Medical Decision Making Medical Screen Exam Complete: Yes Emergency Medical Condition: Yes Medical Record Reviewed: Yes (past history confirmed, recent admission for pneumonia on BiPAP sent home on Levaquin, no h/o asthma or copd) Interpretation(s) CBC & BMP Diagram 10/02/16 10:30 flu is A positive cxr with chf type pattern ABG shows normal pH of 7.34 with PCO2 of 60 and PO2 of 64 on 5 L Will continue this Differential Diagnosis CHF, COPD, renal failure, pneumonia, anemia Narrative Course Will check blood work, chest x-ray, place on oxygen and tried DuoNeb and reevaluate. patient states she is feeling better after breathing treatment and with oxygen, flu is a positive. Will dose with Tamiflu and place on Rocephin and azithromycin in case there is beginning of pneumonia again although chest x-ray has more CHF pattern so we will hold IV fluid hydration and give 1 dose of Lasix. Patient updated and agrees to plan of care. She'll need to stay in the hospital given she is requiring 5 L of oxygen for hypoxemia Physician Communication Physician Communication dr jolley agrees to admit in [facility] Diagnosis Primary Impression: Influenza A Additional Impressions: Acute respiratory failure Qualified Code: J96.01 - Acute respiratory failure with hypoxia Pulmonary infiltrates Admitting Information Admitting Physician Requests: Admit Priscilla Quarles MD Oct 02, 2016 10:22
--- NOTE | 2016-10-02 10:37 | RADRPT ---
EXAM DATE/TIME: 10/02/2016 10:06 [facility] COMPARISON: CHEST SINGLE AP, September 09, 2016, 3:11. INDICATIONS : Short of breath. MEDICAL HISTORY : Hypercholesterolemia. Diabetes mellitus type II. Hypertension. A-fib. SURGICAL HISTORY : None. ENCOUNTER: Initial ACUITY: 1 day PAIN SCORE: 0/10 LOCATION: Bilateral chest FINDINGS: The heart is enlarged. Mild interstitial edema is present. Minimal bibasilar parenchymal changes ar e noted, progressed on the left. CONCLUSION: 1. Mild congestive failure. 2. Increasing bibasilar parenchymal changes, worse on the left. Boubacar Woodruff MD FACR on October 02, 2016 at 10:25 Board Certified Radiologist. This report was verified electronically.
[2016-10-02] MEDS ORDERED: METO50TA PO (10:55)
[2016-10-02 11:04] LABS: AUTOMATED NEUTROPHIL # 7.6 TH/MM3 (1.8-7.7); BASOPHIL % 0.3 % (0.0-2.0); EOSINOPHIL # 0.2 TH/MM3 (0-0.4); HEMATOCRIT 33.4 % (35.0-46.0); HEMO FLAGS DIFF FINAL; LYMPH % 8.7 % (9.0-44.0); LYMPHOCYTE # 0.8 TH/MM3 (1.0-4.8); MEAN CELL VOLUME 92.9 FL (80.0-100.0); MEAN CORPUSCULAR HEMOGLOBIN 29.3 PG (27.0-34.0); MEAN CORPUSCULAR HGB CONC 31.5 % (32.0-36.0); MONO % 7.2 % (0.0-8.0); NEUT % 81.8 % (16.0-70.0); PLATELET COUNT 201 TH/MM3 (150-450); RED BLOOD COUNT 3.59 MIL/MM3 (4.00-5.30); RED CELL DISTRIBUTION WIDTH 16.1 % (11.6-17.2); WHITE BLOOD COUNT 9.4 TH/MM3 (4.0-11.0)
[2016-10-02 11:10] LABS: APTT (PATIENT) 27.8 SEC (24.3-30.1); PROTHROMBIN TIME - PATIENT 10.8 SEC (9.8-11.6)
[2016-10-02] MEDS ORDERED: FUROSEMIDE 40 MG/4 ML VIAL IV PUSH ONE (11:15)
[2016-10-02 11:18] LABS: ALT (GPT) 15 U/L (10-53); ANION GAP 5 MEQ/L (5-15); AST (GOT) 11 U/L (15-37); BICARBONATE 32.8 MEQ/L (21.0-32.0); BLOOD UREA NITROGEN 19 MG/DL (7-18); CHLORIDE 95 MEQ/L (98-107); GLOMERULAR FILTRATION RATE 27 ML/MIN (>89); POTASSIUM 4.4 MEQ/L (3.5-5.1); SODIUM (NA) 133 MEQ/L (136-145)
[2016-10-02 11:20] LABS: ALKALINE PHOSPHATASE 92 U/L (45-117); CREATINE KINASE 80 U/L (26-192); TOTAL BILIRUBIN ADULT 0.6 MG/DL (0.2-1.0)
[2016-10-02 11:42] LABS: BACTERIA, URINE FEW /hpf; BLOOD, URINE NEG (NEG); COMMENT (UR) CULT NOT INDICATED; CULTURE IF INDICATED CULT NOT INDICATED; GLUCOSE,URINE NEG (NEG); KETONE, URINE NEG (NEG); NITRITE,URINE NEG (NEG); PH, URINE 6.5 (5.0-8.5); SQUAMOUS EPITHELIAL CELL URINE 4 /hpf (0-5); TRANSITIONAL EPI CELLS, URINE <1 /hpf; URINE COLOR YELLOW (YELLW/STRAW)
[2016-10-02] MEDS ORDERED: cefTRIAXone INJ 1,000 MG in SODIUM CHLORIDE 0.9% INJ 100 ML IV ONE (12:00)
[2016-10-02] MEDS ORDERED: SODIUM CHLORIDE 0.9% FLUSH 10 ML FLUSH IVF PRN (12:00)
[2016-10-02] MEDS ORDERED: OSELTAMIVIR PHOSPHATE 75 MG CAP PO ONE (12:00)
[2016-10-02] MEDS ORDERED: AZITHROMYCIN INJ 500 MG in SODIUM CHLOR 0.9% 250 ML INJ 250 ML IV ONE (12:00)
[2016-10-02 12:38] LABS: BLOOD GAS BASE EXCESS 6.3 mmol/L (-2-2); BLOOD GAS CARBOXYHEMOGLOBIN 2.5 % (0-4); BLOOD GAS HCO3 32 mmol/L (22-26); BLOOD GAS METHEMOGLOBIN 0.2 % (0-2); BLOOD GAS O2 HGB SATURATION 88 % (90-100); BLOOD GAS OXYGEN CONTENT 12.2 Vol % (12.0-20.0); BLOOD GAS PCO2 60 mmHg (38-42); BLOOD GAS PO2 64 mmHG (61-120); BLOOD GAS TOTAL HGB 9.8 G/DL (12.0-16.0); TEMP CORR TO 98.6
[2016-10-02 12:39] LABS: CRITICAL VALUE YES; DRAW SITE RT RADIAL; LITER FLOW 5 L/M; NUMBER OF ARTERIAL PUNCTURES 1; OXYGEN DEVICE NASAL CANNULA; STAT YES; ULNAR PULSE PRESENT
--- NOTE | 2016-10-02 16:00 | HHI.HP ---
[facility] Duncan Alba MD Admission Diagnosis respiratory failure Diagnoses: Chief Complaint: Shortness of breath Travel History International Travel<30 Days: No Contact w/Intl Traveler <30 Da: No Traveled to Known Affected Are: No History of Present Illness Patient is an 81-year-old female with known history of hypertension, atrial fibrillation, hypothyroidism, who was recently admitted here in August 2016 due to acute respiratory failure at that time was noted to have pneumonia. Patient was discharged on by mouth Levaquin to a nearby skilled rehabilitation facility where she stayed for 7-10 days. Patient was doing well until this morning patient started feeling short of breath. The patient denies any fever though the patient had some dry cough. states baseline sleeps with 3 pillow. He she denies any leg swelling. Patient activity baseline limited by her weight. She gets around with a cane slowly and for longer walks with a walker. She also complained of generalized body aches. Came to the emergency room where on evaluation was positive for influenza A. She was also noted to be hypoxemic with requiring 5-6 L nasal cannula. Patient admitted for further evaluation and management. Review of Systems Constitutional: DENIES: Diaphoretic episodes, Fatigue, Fever, Weight gain, Weight loss, Chills, Dizziness, Change in appetite, Night Sweats Endocrine: DENIES: Abnorml menstrual pattern, Heat/cold intolerance, Polydipsia , Polyuria, Polyphagia Eyes: DENIES: Blurred vision, Diplopia, Eye inflammation, Eye pain, Vision loss , Photosensitivity, Double Vision Ears, nose, mouth, throat: DENIES: Tinnitus, Hearing loss, Vertigo, Nasal discharge, Oral lesions, Throat pain, Hoarseness, Ear Pain, Running Nose, Epistaxis, Sinus Pain, Toothache, Odynophagia Respiratory: COMPLAINS OF: Cough, Shortness of breath Cardiovascular: COMPLAINS OF: Dyspnea on Exertion Gastrointestinal: DENIES: Abdominal pain, Black stools, Bloody stools, Constipation, Diarrhea, Nausea, Vomiting, Difficulty Swallowing, Anorexia Genitourinary: DENIES: Abnormal vaginal bleeding, Dysmenorrhea, Dyspareunia, Sexual dysfunction, Urinary frequency, Urinary incontinence, Urgency, Hematuria , Dysuria, Nocturia, Vaginal discharge Musculoskeletal: COMPLAINS OF: Joint pain, Muscle aches Hematologic/lymphatic: DENIES: Bruising, Lymphadenopathy Immunologic/allergic: DENIES: Eczema, Urticaria Neurologic: DENIES: Abnormal gait, Headache, Localized weakness, Paresthesias, Seizures, Speech Problems, Tremor, Poor Balance Psychiatric: DENIES: Anxiety, Confusion, Mood changes, Depression, Hallucinations, Agitation, Suicidal Ideation, Homicidal Ideation, Delusions Past Family Social History Past Medical History Hypertension Atrial fibrillation Diabetes type 2 insulin-requiring Hypothyroidism Hyperlipidemia Neuropathy diabetic Past Surgical History Total thyroidectomy in 2011 secondary to thyroid cancer History of partial small bowel resection Cholecystectomy Reported Medications Lisinopril 40 mg daily Adequacy 2.5 mg twice a day Gabapentin 100 mg twice a day Lopressor 50 mg twice a Cardizem CD 300 mg daily Lantus 19 units at bedtime Multivitamin Omeprazole Synthroid 125 g daily Calcitriol 0.25 mg daily Vitamin D 400 units twice a day 8 atorvastatin 20 mg at bedtime Allergies: Coded Allergies: Celebrex (Verified Allergy, Severe, SYNCOPE, 10/02/16) Family History Noncontributory Social History Never smoked Occasional gin with orange juice No history of substance abuse Physical Exam Vital Signs Vital Signs Date Time Temp Pulse Resp B/P Pulse Ox O2 Delivery O2 Flow Rate FiO2 10/02/16 13:25 60 22 138/63 95 Nasal Cannula 5 10/02/16 11:49 58 22 169/72 95 Nasal Cannula 4 10/02/16 11:49 58 22 169/72 95 Nasal Cannula 4 10/02/16 10:49 60 22 214/101 94 3 10/02/16 10:07 95 Nasal Cannula 5.00 10/02/16 10:06 95 Nasal Cannula 4 10/02/16 09:55 86 28 67 Room Air 10/02/16 09:46 97.8 84 16 182/116 75 Physical Exam GENERAL: Obese SKIN: No rashes, ecchymoses or lesions. Cool and dry. HEAD: Atraumatic. Normocephalic. No temporal or scalp tenderness. EYES: Pupils equal round and reactive. Extraocular motions intact. No scleral icterus. No injection or drainage. ENT: Nose without bleeding, purulent drainage Throat without erythema Uvula midline. Airway patent. NECK: Trachea midline. No JVD or lymphadenopathy. Supple, nontender, no meningeal signs. CARDIOVASCULAR: Regular rate and rhythm without murmurs, gallops, or rubs. RESPIRATORY: Decreased breath sounds bilaterally, no Rales or wheezes GASTROINTESTINAL: Abdomen soft, flabby, non-tender, nondistended. . No guarding. MUSCULOSKELETAL: Extremities without clubbing, cyanosis, or edema. No joint tenderness, effusion, or edema noted. No calf tenderness. Negative Homans sign bilaterally. NEUROLOGICAL: Awake and alert. Cranial nerves II through XII intact. Motor and sensory grossly within normal limits. Five out of 5 muscle strength in all muscle groups. Normal speech. Laboratory Laboratory Tests Test 10/02/16 10/02/16 10/02/16 10:30 11:00 12:29 White Blood Count 9.4 Red Blood Count 3.59 Hemoglobin 10.5 Hematocrit 33.4 Mean Corpuscular Volume 92.9 Mean Corpuscular Hemoglobin 29.3 Mean Corpuscular Hemoglobin 31.5 Concent Red Cell Distribution Width 16.1 Platelet Count 201 Mean Platelet Volume 8.5 Neutrophils (%) (Auto) 81.8 Lymphocytes (%) (Auto) 8.7 Monocytes (%) (Auto) 7.2 Eosinophils (%) (Auto) 2.0 Basophils (%) (Auto) 0.3 Neutrophils # (Auto) 7.6 Lymphocytes # (Auto) 0.8 Monocytes # (Auto) 0.7 Eosinophils # (Auto) 0.2 Basophils # (Auto) 0.0 CBC Comment DIFF FINAL Differential Comment Prothrombin Time 10.8 Prothromb Time International 1.0 Ratio Activated Partial 27.8 Thromboplast Time Sodium Level 133 Potassium Level 4.4 Chloride Level 95 Carbon Dioxide Level 32.8 Anion Gap 5 Blood Urea Nitrogen 19 Creatinine 2.16 Estimat Glomerular Filtration 27 Rate Random Glucose 129 Lactic Acid Level 0.8 Calcium Level 9.5 Phosphorus Level 4.3 Magnesium Level 2.0 Total Bilirubin 0.6 Aspartate Amino Transf 11 (AST/SGOT) Alanine Aminotransferase 15 (ALT/SGPT) Alkaline Phosphatase 92 Total Creatine Kinase 80 Troponin I LESS THAN 0.02 B-Type Natriuretic Peptide 318 Total Protein 8.4 Albumin 3.5 Lipase 191 Urine Color YELLOW Urine Turbidity HAZY Urine pH 6.5 Urine Specific Deeth 1.015 Urine Protein 300 Urine Glucose (UA) NEG Urine Ketones NEG Urine Occult Blood NEG Urine Nitrite NEG Urine Bilirubin NEG Urine Urobilinogen LESS THAN 2.0 Urine Leukocyte Esterase TRACE Urine RBC 2 Urine WBC 5 Urine Squamous Epithelial 4 Cells Urine Transitional Epithelial <1 Cells Urine Amorphous Sediment FEW Urine Bacteria FEW Urine Yeast (Budding) RARE Microscopic Urinalysis Comment CULT NOT INDICATED Blood Gas Puncture Site RT RADIAL Blood Gas Patient Temperature 98.6 Blood Gas HCO3 32 Blood Gas Base Excess 6.3 Blood Gas Oxygen Saturation 88 Arterial Blood pH 7.34 Arterial Blood Partial 60 Pressure CO2 Arterial Blood Partial 64 Pressure O2 Arterial Blood Oxygen Content 12.2 Arterial Blood 2.5 Carboxyhemoglobin Arterial Blood Methemoglobin 0.2 Blood Gas Hemoglobin 9.8 Oxygen Delivery Device NASAL CANNULA Blood Gas Liter Flow 5 Date/Time Procedure Status Source Growth 10/02/16 11:00 Influenza Types A,B Antigen (LAYLA) - Final Complete Nasal Aspirate Positive For Flu A Antigen 10/02/16 10:30 Aerobic Blood Culture Received Blood Peripheral Pending 10/02/16 10:30 Anaerobic Blood Culture Received Blood Peripheral Pending Result Diagram: 10/02/16 1030 10/02/16 1030 Imaging Last Impressions Chest X-Ray 10/02/16 0953 Signed Impressions: Service Date/Time: Sunday, October 02, 2016 10:06 - CONCLUSION: 1. Mild congestive failure. 2. Increasing bibasilar parenchymal changes, worse on the left. Boubacar Woodruff MD FACR Assessment and Plan Assessment and Plan 81-year-old female presenting with shortness of breath, generalized body aches hypoxemia Acute respiratory failure secondary with underlying restrictive lung disease with obesity Oxygen nasal cannula to keep sats greater than 90%. Will do home oxygen walk test prior to discharge.- may qualify for home 02 Nebulization every 6 scheduled and every 2 when necessary Get pulmonary function tests. Pulmonary consult Influenza type A Recently treated for community-acquired pneumonia- completed course Start patient on Tamiflu 75 mg by mouth twice a day ff clinically History of hypertension, atrial fibrillation rate controlled in sinus rhythm, hyperlipidemia Continue on lisinopril 40 mg daily. Lopressor 50 mg twice a day Cardizem CD 300 mg daily. Eliquis 2.5 mg twice a day, atorvastatin 20 mg at bedtime get a 2D echo -check EF History of hypothyroidism continue Synthroid 125 g daily Type 2 diabetes insulin-requiring. DM neuropathy check blood sugars 3 times a day and at bedtime with sliding coverage. 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 continue on vitamin D 400 units twice a day, calcitriol 0.25 mg daily DVT prophylaxis- patient on eliquis Get PTOT in a.m. paid search manager consult in am for discharge planning Discussed Condition With Patient and family at bedside Physician Certification 2 Midnight Certification Type: Admission for Inpatient Services Order for Inpatient Services The services are ordered in accordance with Medicare regulations or non- Medicare payer requirements, as applicable. In the case of services not specified as inpatient-only, they are appropriately provided as inpatient services in accordance with the 2-midnight benchmark. Estimated LOS (days): 3 days is the estimated time the patient will need to remain in the hospital, assuming treatment plan goals are met and no additional complications. Post-Hospital Plan: Not yet determined Lata Dahl MD Oct 02, 2016 16:00
[2016-10-02] MEDS ORDERED: RESP: ALBUTEROL 2.5 MG/IPRATROPIUM 0.5 MG NEB (PRN) NEB (16:15)
[2016-10-02] MEDS: RESP: ALBUTEROL 2.5 MG/IPRATROPIUM 0.5 MG NEB (SCH) NEB ×2 (16:31→23:56)
[2016-10-02] MEDS: GABAPENTIN 100 MG CAP PO SCH (20:50)
[2016-10-02] MEDS: METOPROLOL TARTRATE 50 MG TAB PO SCH (20:50)
[2016-10-02] MEDS: OSELTAMIVIR PHOSPHATE 75 MG CAP PO SCH (20:50)
[2016-10-02] MEDS: CHOLECALCIFEROL (VIT D3) 400 UNIT TAB PO SCH (20:50)
[2016-10-02] MEDS: MULTIVITAMINS/MINERALS THERAPEUTIC TAB PO SCH (20:50)
[2016-10-02] MEDS: PANTOPRAZOLE SOD 20 MG DELAYED RELEASE TAB PO SCH (20:50)
[2016-10-02] MEDS: APIXABAN 2.5 MG TABLET PO SCH (20:51)
[2016-10-02] MEDS: ATORVASTATIN 20 MG TAB PO SCH (20:51)
[2016-10-03] VITALS (28 sets, daily range): BP systolic 107–146; BP diastolic 49–88; PULSE 62–80; RESP 18–20; TEMP 98–98.7; O2SAT 92–100
[2016-10-03] MEDS: LEVOTHYROXINE SODIUM 125 MCG TAB PO SCH (05:47)
[2016-10-03] MEDS: APIXABAN 2.5 MG TABLET PO SCH ×2 (08:28→20:30)
[2016-10-03] MEDS: GABAPENTIN 100 MG CAP PO SCH ×2 (08:28→20:30)
[2016-10-03] MEDS: DILTIAZEM-CD 300 MG CAP ER PO SCH (08:28)
[2016-10-03] MEDS: METOPROLOL TARTRATE 50 MG TAB PO SCH ×2 (08:28→20:30)
[2016-10-03] MEDS: LISINOPRIL 20 MG TAB PO SCH (08:29)
[2016-10-03] MEDS: OSELTAMIVIR PHOSPHATE 75 MG CAP PO SCH ×2 (08:29→20:31)
[2016-10-03] MEDS: MULTIVITAMINS/MINERALS THERAPEUTIC TAB PO SCH ×2 (08:29→20:30)
[2016-10-03] MEDS: CHOLECALCIFEROL (VIT D3) 400 UNIT TAB PO SCH ×2 (08:29→20:30)
[2016-10-03] MEDS: CALCITRIOL 0.25 MCG CAP PO SCH (08:29)
[2016-10-03] MEDS: PANTOPRAZOLE SOD 20 MG DELAYED RELEASE TAB PO SCH ×2 (08:29→20:30)
[2016-10-03] MEDS: RESP: ALBUTEROL 2.5 MG/IPRATROPIUM 0.5 MG NEB (SCH) NEB ×2 (08:31→16:39)
--- NOTE | 2016-10-03 09:56 | MB ---
cc: DASHA LOU M.D. DATE OF CONSULTATION 10/02/2016 REASON FOR CONSULTATION Respiratory failure. HISTORY OF PRESENT ILLNESS The patient is an 81-year-old female with known history of atrial fibrillation, hypothyroidism, hypertension, question congestive heart failure, was previously hospitalized in August of this year for pneumonia. The patient was sent home on Levaquin and had to recover from an underlying pneumonitis. The patient has an occasional dry cough since, has bilateral lower extremity edema. She comes to the emergency room because of generalized aches and pains, was positive for Influenza A, noted to have hypercarbia with an arterial blood gas with a pH of 7.34, pCO2 60, pCO2 60 and pO2 of 64. The patient is on oxygen therapy via nasal cannula and has no respiratory distress. PAST MEDICAL HISTORY 1. Diabetes mellitus. 2. Hypertension. 3. Atrial fibrillation. 4. Question CHF and/or cor pulmonale. 5. Hyperlipidemia. 6. Diabetic neuropathy. PAST SURGICAL HISTORY 1. Thyroidectomy in the past. 2. Small bowel resection. 3. Previous cholecystectomy. MEDICATIONS AT HOME. 1. Lisinopril. 2. Gabapentin. 3. Lopressor. 4. Cardizem. 5. Insulin. 6. Omeprazole. 7. Synthroid. 8. Calcitriol. ALLERGIES CELEBREX. FAMILY HISTORY Positive for heart disease, diabetes. SOCIAL HISTORY Does not smoke, never did. Drinks alcohol socially. No TB, no industrial exposure. REVIEW OF SYSTEMS A 12-point review of systems as per HPI. Past history otherwise negative. PHYSICAL EXAMINATION GENERAL: The patient is alert, appears in no distress. VITAL SIGNS: Pulse is 60, respiration 20, blood pressure 138/60, oxygen saturation 95% on 5 liters nasal cannula which is decreased down to 4 liters by nasal cannula. HEENT: Exam unremarkable. Eyes without icterus. NECK: Without adenopathy, thyroid enlargement. Central trachea. CHEST: A few rhonchi at the bases. CARDIAC EXAM: PMI distant. S1-S2 audible. No murmur or rub. ABDOMEN: Lax. Bowel sounds audible. EXTREMITIES: 1+ edema. LABORATORY DATA White count 9.4, hemoglobin 10, hematocrit 33, platelets 201. Sodium 133, potassium 4.4, BUN 19, creatinine 2.1. IMPRESSION 1. Hypoxic and hypercarbic respiratory failure. 2. Morbid obesity. 3. Question congestive heart failure. 4. Atrial fibrillation. 5. Diabetes mellitus. 6. Hypertension. 7. Hypothyroidism on replacement therapy. PLAN The patient is with obvious hypoxemia and hypercarbia which for all likelihood are related to underlying obesity/hypoventilation syndrome. She will require sleep evaluation post hospital discharge and therapy for her respiratory failure. BiPap therapy would definitely be helpful. An echocardiogram would be appropriate as well as cardiac evaluation. I believe she has seen by Dr. Villalpando in the past. Meanwhile we will check her pulmonary function and follow her arterial blood gas and institute BiPap therapy if needed as inpatient. I do thank you for asking me to partake in Mrs. Sales's care. Sincerely Dasha Lou MD WWW/MELLO /6:41 PM /9:41 AM
--- NOTE | 2016-10-03 10:48 | HHI.PR ---
Subjective Remarks awake and alert, appears comfortable no complains of pain telemetry in NSR - 70s Objective Vitals Vital Signs Date Time Temp Pulse Resp B/P Pulse Ox O2 Delivery O2 Flow Rate FiO2 10/03/16 10:30 78 10/03/16 09:00 76 10/03/16 08:31 97 Nasal Cannula 4.00 10/03/16 08:00 78 10/03/16 07:45 98.5 72 20 143/88 97 10/03/16 07:45 75 10/03/16 06:33 72 10/03/16 05:00 71 10/03/16 04:00 98.2 71 20 132/67 98 10/03/16 04:00 71 10/03/16 03:00 68 10/03/16 02:00 68 10/03/16 01:00 73 10/03/16 00:00 98.2 62 20 128/63 98 10/03/16 00:00 69 10/02/16 23:56 96 Nasal Cannula 4.00 10/02/16 23:00 69 10/02/16 22:00 71 10/02/16 21:51 96 Nasal Cannula 4.00 10/02/16 21:00 65 10/02/16 20:00 69 10/02/16 20:00 98.2 72 20 182/85 98 88/57 10/02/16 19:00 72 10/02/16 18:18 73 10/02/16 17:21 98.1 73 18 147/78 98 10/02/16 16:56 62 20 164/78 95 Nasal Cannula 4 10/02/16 13:25 60 22 138/63 95 Nasal Cannula 5 10/02/16 11:49 58 22 169/72 95 Nasal Cannula 4 10/02/16 11:49 58 22 169/72 95 Nasal Cannula 4 10/02/16 10:49 60 22 214/101 94 3 I/O 10/02/16 10/02/16 10/02/16 10/03/16 10/03/16 10/03/16 07:00 15:00 23:00 07:00 15:00 23:00 Intake Total 240 ml 420 ml Output Total 250 ml 1000 ml Balance -10 ml -580 ml Intake Oral 240 ml 420 ml Output Urine Total 250 ml 1000 ml # Bowel Movements 0 0 Result Diagram: 10/02/16 1030 10/02/16 1030 Imaging Last Impressions Chest X-Ray 10/02/16 0953 Signed Impressions: Service Date/Time: Sunday, October 02, 2016 10:06 - CONCLUSION: 1. Mild congestive failure. 2. Increasing bibasilar parenchymal changes, worse on the left. Boubacar Woodruff MD FACR Objective Remarks awake and alert, orineted x 3 anicteric lungs decreased breath sounds, no rales regular rhythm abdomen soft, good bowel sounds extremities no edema neuro exam non focal edwards in place Urinary Catheter: Yes Edwards insert reason: Prolonged Immobilization Date of Insertion: Oct 02, 2016 A/P Assessment and Plan 81-year-old female presenting with shortness of breath, generalized body aches hypoxemia Acute respiratory failure secondary with underlying restrictive lung disease due to obesity Oxygen nasal cannula to keep sats greater than 90%. Will do home oxygen walk test prior to discharge.- may qualify for home 02 Nebulization every 6 scheduled and every 2 when necessary Get pulmonary function tests. Dr Lou ff Acute Influenza type A Worsening Infiltrates - possibly viral with above Recently treated for community-acquired pneumonia- completed course of antibiotics- DC to SNF Now with Bacteremia- ? contaminant Started on Tamiflu 75 mg by mouth twice a day ff clinically ID consult- should we start antibiotics- patient afebrile. get another set of cultures History of hypertension, atrial fibrillation rate controlled in sinus rhythm, hyperlipidemia Continue on lisinopril 40 mg daily. Lopressor 50 mg twice a day Cardizem CD 300 mg daily. Eliquis 2.5 mg twice a day, atorvastatin 20 mg at bedtime echo- EF- 55-60%. received Lasix at ER History of hypothyroidism continue Synthroid 125 g daily Type 2 diabetes insulin-requiring. DM neuropathy check blood sugars 3 times a day and at bedtime with sliding coverage. 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 continue on vitamin D 400 units twice a day, calcitriol 0.25 mg daily DVT prophylaxis- patient on eliquis Get PTOT in a.m. manager corporate marketing consult in am for discharge planning Lata Dahl MD Oct 03, 2016 10:48 Lata Dahl MD Oct 03, 2016 10:48
--- NOTE | 2016-10-03 11:24 | EKG ---
Date Performed: 10/02/2016 Time Performed: 09:57:59 PTAGE: 81 years EKG: Sinus rhythm WITH FIRST DEGREE AV BLOCK ABNORMAL ECG PREVIOUS TRACING : 09/10/2016 17.04 DOCTOR: Lucho Oliveros Interpretating Date/Time 10/03/2016 11:21:43
--- NOTE | 2016-10-03 15:07 | EC ---
Study Study Date:10/03/2016 STUDY CONCLUSIONS SUMMARY - Left ventricle: The cavity size was normal. Wall thickness was increased in a pattern of moderate LVH. Systolic function was normal. The estimated ejection fraction was in the range of 55% to 60%. Wall motion was normal; there were no regional wall motion abnormalities. - Aortic valve: Valve area: 1.44cm^2(VTI). Valve area: 1.16cm^2 (Vmax). - Mitral valve: Moderately calcified annulus. Mild to moderate regurgitation. - Left atrium: The atrium was mildly to moderately dilated. - Tricuspid valve: Moderate regurgitation. - Pulmonic valve: Mild regurgitation. - Pulmonary arteries: Systolic pressure was severely increased. PA peak pressure: 87mm Hg (S). - Pericardium, extracardiac: A small pericardial effusion was identified. There was no evidence of hemodynamic compromise. If LV function is below 40, please consider prescribing an ACEI or ARB or document rationale for non-use. PROCEDURE DATA STUDY STATUS: Elective. Procedure: Transthoracic echocardiography. Image quality was good. Scanning was performed from the parasternal, apical, and subcostal acoustic windows. Study completion: The patient tolerated the procedure well. Transthoracic echocardiography. M-mode, complete 2D, complete spectral Doppler, and color Doppler. Height: Height: 64in. Weight: Weight: 296.4lb. Body mass index: BMI: 51kg/m^2. Body surface area: BSA: 2.31m^2. Patient status: Inpatient. CARDIAC ANATOMY LEFT VENTRICLE: The cavity size was normal. Wall thickness was increased in a pattern of moderate LVH. Systolic function was normal. The estimated ejection fraction was in the range of 55% to 60%. Wall motion was normal; there were no regional wall motion abnormalities. AORTIC VALVE: Trileaflet; mildly thickened, mildly calcified leaflets. Doppler: Transvalvular velocity was within the normal range. There was no stenosis. No regurgitation. Valve area: 1.44cm^2(VTI). Indexed valve area: 0.62cm^2/m^2 (VTI). Valve area: 1.16cm^2 (Vmax). Indexed valve area: 0.5cm^2/m^2 (Vmax). Mean gradient: 8mm Hg (S). Peak gradient: 16mm Hg (S). AORTA: Aortic root: The aortic root was normal in size. MITRAL VALVE: Moderately calcified annulus. Doppler: Transvalvular velocity was within the normal range. There was no evidence for stenosis. Mild to moderate regurgitation. Valve area by pressure half-time: 4.4cm^2. Indexed valve area by pressure half-time: 1.9cm^2/m^2. Peak gradient: 7mm Hg (D). LEFT ATRIUM: The atrium was mildly to moderately dilated. RIGHT VENTRICLE: The cavity size was normal. Wall thickness was normal. PULMONIC VALVE: Doppler: Transvalvular velocity was within the normal range. There was no evidence for stenosis. Mild regurgitation. TRICUSPID VALVE: Structurally normal valve. Doppler: Transvalvular velocity was within the normal range. Moderate regurgitation. Peak gradient: 33mm Hg (D). PULMONARY ARTERY: The main pulmonary artery was normal-sized. Systolic pressure was severely increased. RIGHT ATRIUM: The atrium was normal in size. PERICARDIUM: A small pericardial effusion was identified. There was no evidence of hemodynamic compromise. SYSTEMIC VEINS: Inferior vena cava: The vessel was mildly dilated. Patient weight: 296.4lb _Ejection fraction:_ 65-75% _Fractional shortening:_ 32% up to 5Kg 5-11.5Kg 11.6-22.9Kg 23-45Kg 45-57Kg Aortic Root 7-13 <17 13-22 17-27 17-27 LA diam 6-13 <23 24-38 33-47 37-40 RVID 10-17 7-15 7-15 7-18 8-17 LVIDd 12-22 <32 24-38 33-47 37-40 LVPW 2-4 3-6 5-7 6-8 7-8 IVS 2-4 3-6 5-7 6-8 7-8 BASIC MEASUREMENTS ADULT NORMAL Left ventricle LV internal dimension, ED, chordal *40.1 mm 43-52 level, PLAX LV internal dimension, ES, chordal 31.9 mm 23-38 level, PLAX Fractional shortening, chordal level, *20 % >29 PLAX LV posterior wall thickness, ED 18.3 mm IVS/LVPW ratio, ED 1 <1.3 Volume, ED, MOD, 1-plane 52 ml Volume, ES, MOD, 1-plane 18 ml Ejection fraction, MOD, 1-plane 65 % Stroke volume, MOD, 1-plane 34 ml Volume index, ED, MOD, 1-plane 23 ml/m^2 Volume index, ES, MOD, 1-plane 8 ml/m^2 Stroke index, MOD, 1-plane 14.7 ml/m^2 Ventricular septum Septal thickness, ED 18.3 mm Aortic valve Leaflet separation *13 mm 15-26 Aorta Root diameter, ED 31 mm Right ventricle RV internal dimension, ED, PLAX 31.5 mm 19-38 BASIC MEASUREMENTS ADULT NORMAL Aortic valve Leaflet separation *13 mm 15-26 Aorta Root diameter, ED 31 mm 20-37 Left atrium Anterior-posterior dimension, ES *45 mm 19-40 Anterior-posterior dimension index, ES 1.95 cm/m^2 <2.2 LA/aortic root ratio 1.45 DOPPLER MEASUREMENTS ADULT NORMAL Main pulmonary artery Pressure, S *87 mm Hg =30 Aortic valve Peak velocity, S 203 cm/s Mean velocity, S 127 cm/s VTI, S 39.6 cm Mean gradient, S 8 mm Hg Peak gradient, S 16 mm Hg Valve area, VTI 1.44 cm^2 Valve area index, VTI 0.62 cm^2/m^2 Valve area, Vmax 1.16 cm^2 Valve area index, Vmax 0.5 cm^2/m^2 Mitral valve Peak E-wave velocity 128 cm/s Peak A-wave velocity 83.9 cm/s Pressure half-time 50 ms Peak gradient, D 7 mm Hg Peak E/A ratio 1.5 Valve area, pressure half-time 4.4 cm^2 Valve area index, pressure half-time 1.9 cm^2/m^2 Tricuspid valve Peak gradient, D 33 mm Hg Maximal inflow velocity 286 cm/s Regurgitant peak velocity 449 cm/s Peak RV-RA gradient, S 81 mm Hg Maximal regurgitant velocity 449 cm/s Systemic veins Estimated CVP 10 mm Hg Right ventricle RV pressure, S *91 mm Hg <30 Pulmonic valve Peak velocity, S 102 cm/s LEGEND: Mean values are shown as u=mean value. Asterisk (*) hopper values outside specified normal range. Prepared and signed by Dilshad Bland [id number]
--- NOTE | 2016-10-03 15:48 | HHI.PR ---
Subjective Remarks IMPRESSION RESPIRATORY FAILURE, HYPOXIC AND HYPERCARBIC OBESITY HYPOVENTILATION PULMONARY HTN PLAN O2 NEEDED CHECK PFT , ABG NPSG POST D/C CHECK TSH Objective Vital Signs Date Time Temp Pulse Resp B/P Pulse Ox O2 Delivery O2 Flow Rate FiO2 10/03/16 14:43 76 10/03/16 13:11 71 10/03/16 12:01 78 10/03/16 11:32 100 Nasal Cannula 9.50 10/03/16 11:24 98.0 74 20 146/81 100 10/03/16 11:00 75 10/03/16 10:30 78 10/03/16 09:00 76 10/03/16 08:31 97 Nasal Cannula 4.00 10/03/16 08:00 78 10/03/16 07:45 98.5 72 20 143/88 97 10/03/16 07:45 75 10/03/16 06:33 72 10/03/16 05:00 71 10/03/16 04:00 98.2 71 20 132/67 98 10/03/16 04:00 71 10/03/16 03:00 68 10/03/16 02:00 68 10/03/16 01:00 73 10/03/16 00:00 98.2 62 20 128/63 98 10/03/16 00:00 69 10/02/16 23:56 96 Nasal Cannula 4.00 10/02/16 23:00 69 10/02/16 22:00 71 10/02/16 21:51 96 Nasal Cannula 4.00 10/02/16 21:00 65 10/02/16 20:00 69 10/02/16 20:00 98.2 72 20 182/85 98 88/57 10/02/16 19:00 72 10/02/16 18:18 73 10/02/16 17:21 98.1 73 18 147/78 98 10/02/16 16:56 62 20 164/78 95 Nasal Cannula 4 I/O 10/02/16 10/02/16 10/02/16 10/03/16 10/03/16 10/03/16 07:00 15:00 23:00 07:00 15:00 23:00 Intake Total 240 ml 420 ml Output Total 250 ml 1000 ml Balance -10 ml -580 ml Intake Oral 240 ml 420 ml Output Urine Total 250 ml 1000 ml # Bowel Movements 0 0 Result Diagram: 10/02/16 1030 10/02/16 1030 Objective Remarks GENERAL: SKIN: Warm and dry. HEAD: Atraumatic. Normocephalic. EYES: Pupils equal and round. No scleral icterus. No injection or drainage. ENT: No nasal bleeding or discharge. Mucous membranes pink and moist. NECK: Trachea midline. No JVD. CARDIOVASCULAR: Regular rate and rhythm. RESPIRATORY: No accessory muscle use. Clear to auscultation. Breath sounds equal bilaterally. GASTROINTESTINAL: Abdomen soft, non-tender, nondistended. Hepatic and splenic margins not palpable. MUSCULOSKELETAL: Extremities without clubbing, cyanosis, or edema. No obvious deformities. NEUROLOGICAL: Awake and alert. No obvious cranial nerve deficits. Motor grossly within normal limits. Five out of 5 muscle strength in the arms and legs. Normal speech. PSYCHIATRIC: Appropriate mood and affect; insight and judgment normal. Assessment and Plan Assessment and Plan RESPIRATORY FAILURE OBESITY HYPOVENTILATION MORBID OBESITY PULMONARY HTN PLAN O2 NEEDED CHECK ABG , PFT , TSH. LOOSE WT. Dasha Lou MD Oct 03, 2016 15:48
[2016-10-03 17:16] LABS: BLOOD GAS BASE EXCESS 5.8 mmol/L (-2-2); BLOOD GAS CARBOXYHEMOGLOBIN 2.1 % (0-4); BLOOD GAS HCO3 32 mmol/L (22-26); BLOOD GAS O2 HGB SATURATION 86 % (90-100); BLOOD GAS OXYGEN CONTENT 12.6 Vol % (12.0-20.0); BLOOD GAS PCO2 71 mmHg (38-42); BLOOD GAS PO2 60 mmHg (61-120); BLOOD GAS TOTAL HGB 10.5 G/DL (12.0-16.0); CRITICAL VALUE YES; DRAW SITE RT RADIAL; LITER FLOW 2 L/M; NUMBER OF ARTERIAL PUNCTURES 2; OXYGEN DEVICE NASAL CANNULA; STAT NO; TEMP CORR TO 98.6
[2016-10-03 18:35] LABS: BLOOD GAS BASE EXCESS 5.5 mmol/L (-2-2); BLOOD GAS CARBOXYHEMOGLOBIN 2.4 % (0-4); BLOOD GAS HCO3 32 mmol/L (22-26); BLOOD GAS METHEMOGLOBIN 0.8 % (0-2); BLOOD GAS O2 HGB SATURATION 90 % (90-100); BLOOD GAS OXYGEN CONTENT 11.4 Vol % (12.0-20.0); BLOOD GAS PCO2 69 mmHg (38-42); BLOOD GAS PO2 71 mmHg (61-120); BLOOD GAS TOTAL HGB 8.9 G/DL (12.0-16.0); CRITICAL VALUE YES; DRAW SITE RT RADIAL; LITER FLOW 4 L/M; NUMBER OF ARTERIAL PUNCTURES 1; OXYGEN DEVICE NASAL CANNULA; STAT NO; TEMP CORR TO 98.6
[2016-10-03] MEDS: ATORVASTATIN 20 MG TAB PO SCH (20:30)
[2016-10-04] VITALS (24 sets, daily range): BP systolic 125–159; BP diastolic 58–79; PULSE 62–90; RESP 13–21; TEMP 99.5–100.6; O2SAT 0–100
[2016-10-04] MEDS: RESP: ALBUTEROL 2.5 MG/IPRATROPIUM 0.5 MG NEB (SCH) NEB ×3 (00:59→16:46)
[2016-10-04] MEDS: LEVOTHYROXINE SODIUM 125 MCG TAB PO SCH (05:29)
[2016-10-04] MEDS: CALCITRIOL 0.25 MCG CAP PO SCH (08:12)
[2016-10-04] MEDS: OSELTAMIVIR PHOSPHATE 75 MG CAP PO SCH ×2 (08:13→21:16)
[2016-10-04] MEDS: APIXABAN 2.5 MG TABLET PO SCH ×2 (08:13→21:14)
[2016-10-04] MEDS: MULTIVITAMINS/MINERALS THERAPEUTIC TAB PO SCH ×2 (08:13→21:14)
[2016-10-04] MEDS: LISINOPRIL 20 MG TAB PO SCH (08:13)
[2016-10-04] MEDS: CHOLECALCIFEROL (VIT D3) 400 UNIT TAB PO SCH ×2 (08:13→21:14)
[2016-10-04] MEDS: DILTIAZEM-CD 300 MG CAP ER PO SCH (08:13)
[2016-10-04] MEDS: PANTOPRAZOLE SOD 20 MG DELAYED RELEASE TAB PO SCH ×2 (08:13→21:14)
[2016-10-04] MEDS: GABAPENTIN 100 MG CAP PO SCH (08:13)
[2016-10-04] MEDS: METOPROLOL TARTRATE 50 MG TAB PO SCH ×2 (08:15→21:14)
--- NOTE | 2016-10-04 08:27 | HHI.PR ---
Subjective Remarks IMPRESSION RESPIRATORY FAILURE, HYPOXIC AND HYPERCARBIC OBESITY HYPOVENTILATION PULMONARY HTN Objective Vital Signs Date Time Temp Pulse Resp B/P Pulse Ox O2 Delivery O2 Flow Rate FiO2 10/04/16 06:00 86 10/04/16 05:00 83 10/04/16 04:00 84 10/04/16 03:00 95 Nasal Cannula 4.00 10/04/16 03:00 84 18 141/69 95 10/04/16 03:00 78 10/04/16 02:00 78 10/04/16 01:00 78 10/04/16 00:00 75 10/03/16 23:00 75 10/03/16 23:00 98.7 74 20 130/60 100 10/03/16 23:00 100 Nasal Cannula 4.00 10/03/16 22:00 76 10/03/16 21:00 78 10/03/16 20:00 80 10/03/16 19:37 92 Nasal Cannula 4.00 10/03/16 19:00 80 10/03/16 19:00 95 Nasal Cannula 4.00 10/03/16 19:00 98.0 75 18 107/49 95 10/03/16 18:01 80 10/03/16 17:58 76 10/03/16 16:00 74 10/03/16 15:46 99 Nasal Cannula 8.00 10/03/16 15:36 98.7 72 20 126/84 99 10/03/16 15:00 75 10/03/16 14:43 76 10/03/16 13:11 71 10/03/16 12:01 78 10/03/16 11:32 100 Nasal Cannula 9.50 10/03/16 11:24 98.0 74 20 146/81 100 10/03/16 11:00 75 10/03/16 10:30 78 10/03/16 09:00 76 10/03/16 08:31 97 Nasal Cannula 4.00 I/O 10/03/16 10/03/16 10/03/16 10/04/16 10/04/16 10/04/16 07:00 15:00 23:00 07:00 15:00 23:00 Intake Total 420 ml 720 ml 240 ml Output Total 1000 ml 950 ml 700 ml Balance -580 ml -230 ml -460 ml Intake Oral 420 ml 720 ml 240 ml IV Total 0 ml Output Urine Total 1000 ml 950 ml 700 ml # Bowel Movements 0 0 Result Diagram: 10/02/16 1030 10/02/16 1030 Objective Remarks GENERAL: SKIN: Warm and dry. HEAD: Atraumatic. Normocephalic. EYES: Pupils equal and round. No scleral icterus. No injection or drainage. ENT: No nasal bleeding or discharge. Mucous membranes pink and moist. NECK: Trachea midline. No JVD. CARDIOVASCULAR: Regular rate and rhythm. RESPIRATORY: No accessory muscle use. Clear to auscultation. Breath sounds equal bilaterally. GASTROINTESTINAL: Abdomen soft, non-tender, nondistended. Hepatic and splenic margins not palpable. MUSCULOSKELETAL: Extremities without clubbing, cyanosis, or edema. No obvious deformities. NEUROLOGICAL: Awake and alert. No obvious cranial nerve deficits. Motor grossly within normal limits. Five out of 5 muscle strength in the arms and legs. Normal speech. PSYCHIATRIC: Appropriate mood and affect; insight and judgment normal. Assessment and Plan Assessment and Plan RESPIRATORY FAILURE OBESITY HYPOVENTILATION MORBID OBESITY PULMONARY HTN PLAN O2 NEEDED CHECK ABG , PFT , TSH. LOOSE WT. BIPAP WHILE SLEEPING AND TOLERATED WHEN AWAKE Dasha Lou MD Oct 04, 2016 08:27
--- NOTE | 2016-10-04 13:19 | HHI.PR ---
Subjective Remarks lethargic this am placed on BiPAP this am 40% awakened easily but drifts off now with low grade fever Objective Vitals Vital Signs Date Time Temp Pulse Resp B/P Pulse Ox O2 Delivery O2 Flow Rate FiO2 10/04/16 12:00 64 10/04/16 11:11 92 45 10/04/16 11:00 81 10/04/16 11:00 95 Bi-Pap 45 10/04/16 11:00 100.2 70 21 136/62 95 10/04/16 10:00 72 10/04/16 09:00 80 10/04/16 08:00 99.9 86 20 140/70 96 10/04/16 08:00 86 10/04/16 08:00 96 Nasal Cannula 4.00 10/04/16 07:00 90 10/04/16 06:00 86 10/04/16 05:00 83 10/04/16 04:00 84 10/04/16 03:00 95 Nasal Cannula 4.00 10/04/16 03:00 84 18 141/69 95 10/04/16 03:00 78 10/04/16 02:00 78 10/04/16 01:00 78 10/04/16 00:00 75 10/03/16 23:00 75 10/03/16 23:00 98.7 74 20 130/60 100 10/03/16 23:00 100 Nasal Cannula 4.00 10/03/16 22:00 76 10/03/16 21:00 78 10/03/16 20:00 80 10/03/16 19:37 92 Nasal Cannula 4.00 10/03/16 19:00 80 10/03/16 19:00 95 Nasal Cannula 4.00 10/03/16 19:00 98.0 75 18 107/49 95 10/03/16 18:01 80 10/03/16 17:58 76 10/03/16 16:00 74 10/03/16 15:46 99 Nasal Cannula 8.00 10/03/16 15:36 98.7 72 20 126/84 99 10/03/16 15:00 75 10/03/16 14:43 76 I/O 10/03/16 10/03/16 10/03/16 10/04/16 10/04/16 10/04/16 07:00 15:00 23:00 07:00 15:00 23:00 Intake Total 420 ml 720 ml 240 ml Output Total 1000 ml 950 ml 700 ml Balance -580 ml -230 ml -460 ml Intake Oral 420 ml 720 ml 240 ml IV Total 0 ml Output Urine Total 1000 ml 950 ml 700 ml # Bowel Movements 0 0 Result Diagram: 10/02/16 1030 10/02/16 1030 Imaging Last Impressions Chest X-Ray 10/02/16 0953 Signed Impressions: Service Date/Time: Sunday, October 02, 2016 10:06 - CONCLUSION: 1. Mild congestive failure. 2. Increasing bibasilar parenchymal changes, worse on the left. Boubacar Woodruff MD FACR Objective Remarks lethargic anicteric lungs decreased breath sounds, no rales regular rhythm abdomen soft, good bowel sounds extremities no edema neuro exam non focal edwards in place Urinary Catheter: Yes Edwards insert reason: Prolonged Immobilization Date of Insertion: Oct 02, 2016 A/P Assessment and Plan 81-year-old female presenting with shortness of breath, generalized body aches hypoxemia Acute hypercarbic respiratory failure secondary with underlying restrictive lung disease due to obesity placed on BiPAP this am. check ABG now on current biPAP setting Nebulization every 6 scheduled and every [address] Lou ff d/w - may need intubation -agrees to intubation if needed- Acute Influenza type A Worsening Infiltrates - possibly viral with above Recently treated for community-acquired pneumonia- completed course of antibiotics adn was DC to SNF 09/13 Bacteremia- ? contaminant Low grade fever this am on Tamiflu 75 mg by mouth twice a day ff repeat cultures. repeat CXR now ID consulted for recommendation- History of hypertension, atrial fibrillation rate controlled in sinus rhythm, hyperlipidemia CHF component- BNP elevated Lasix 20 mg IV daily Continue on lisinopril 40 mg daily. Lopressor 50 mg twice a day Cardizem CD 300 mg daily. Eliquis 2.5 mg twice a day, atorvastatin 20 mg at bedtime 2D echo 55-60% History of hypothyroidism continue Synthroid 125 g daily Type 2 diabetes insulin-requiring. DM neuropathy check blood sugars 3 times a day and at bedtime with sliding coverage. 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 continue on vitamin D 400 units twice a day, calcitriol 0.25 mg daily DVT prophylaxis- patient on eliquis PT when stable Lata Dahl MD Oct 04, 2016 13:19
[2016-10-04 14:22] LABS: BLOOD GAS BASE EXCESS 6.2 mmol/L (-2-2); BLOOD GAS HCO3 32 mmol/L (22-26); BLOOD GAS METHEMOGLOBIN 1.1 % (0-2); BLOOD GAS O2 HGB SATURATION 91 % (90-100); BLOOD GAS OXYGEN CONTENT 11.3 Vol % (12.0-20.0); BLOOD GAS PCO2 66 mmHg (38-42); BLOOD GAS PO2 78 mmHg (61-120); BLOOD GAS TOTAL HGB 8.7 G/DL (12.0-16.0); TEMP CORR TO 98.6
[2016-10-04 14:23] LABS: CRITICAL VALUE YES; DRAW SITE LT RADIAL; FIO2 45 %; NUMBER OF ARTERIAL PUNCTURES 1; OXYGEN DEVICE BiPAP; STAT NO; ULNAR PULSE Y; VENT SETTINGS IPAP 14 EPAP 8
--- NOTE | 2016-10-04 15:00 | PD.ID.CON ---
History of Present Illness Service ID Consult Requested By Reason for Consult Evaluation and Mment of Influenza A and secondary bacterial pneumonia in patient with recent hospitalization. Primary Care Physician Duncan Alba MD Diagnoses: History of Present Illness Ms. Sales is an 81 y/o AAF with PMHx of HTN, atrial fibrillation, hypothyroidism, who was recently admitted here in August 2016 due to acute respiratory failure at that time was noted to have pneumonia. Patient was discharged on by mouth Levaquin/bactrim to a nearby skilled rehabilitation facility where she stayed for 7-10 days. Patient was doing well until the morning of admission when she started feeling short of breath. The patient denies any fever though the patient had some dry cough. She also complained of generalized body aches to others on admission. Came to the emergency room where on evaluation was positive for influenza A. She was also noted to be hypoxemic with requiring 5-6 L nasal cannula and progressed with resp distress needing placement on BiPAP. Snaker Tractor Driver is on the case as well. No fever, No wbc elevation, lactic acid normal on admission. Cr was elevated from her baseline and she appears to be in acute on chronic renal failure. She is currently is on CIC. Upon my arrival patient was on BiPAP and her ABG was suggestive of ongoing respiratory acidosis based on review of numbers provided to me. Patient has had blood cultures that are positive for Staph epidermidis 10/04 bottles and repeat blood cultures are negative at this point. Patient does not have indwelling central lines on admission. Patient does have a edwards cath in place placed on 10/02/2016. Patient is currently not on pressors, but in on BiPAP with fair urine output while in CIC. ABG was discussed with who agrees patient needs transfer to the ICU. Review of Systems ROS Limitations: Clinical Condition, Altered Mental Status Past Family Social History Allergies: Coded Allergies: Celebrex (Verified Allergy, Severe, SYNCOPE, 10/02/16) Past Medical History Hypertension Atrial fibrillation Diabetes type 2 insulin-requiring Hypothyroidism Hyperlipidemia Neuropathy diabetic Past Surgical History Total thyroidectomy in 2010 secondary to thyroid cancer History of partial small bowel resection Cholecystectomy Reported Medications Reported Meds & Active Scripts Active Reported Metoprolol Tartrate 50 Mg Tab 50 Mg PO BID Lantus Solostar Pen Inj (Insulin Glargine) 300 Unit/3 Ml Pen 22 Units SQ HS Vitamin D (Cholecalciferol) 400 Unit Cap 400 Units PO BID Multivitamin Gummies Adul (Multiple Vitamins W/ Minerals) 1 Chw Chw 1 Chew PO BID Eliquis (Apixaban) 2.5 Mg Tab 2.5 Mg PO BID Calcitriol 0.25 Mcg Cap 0.25 Mcg PO DAILY Omeprazole 20 Mg Tab 20 Mg PO BID Gabapentin 100 Mg Cap 100 Mg PO BID Lisinopril 40 Mg Tab 40 Mg PO DAILY Atorvastatin (Atorvastatin Calcium) 20 Mg Tab 20 Mg PO HS Levothyroxine (Levothyroxine Sodium) 125 Mcg Tab 125 Mcg PO DAILY Diltiazem ER 24 HR 300 Mg Lexy 300 Mg PO DAILY Active Ordered Medications Current Medications Medications (Trade) Dose Ordered Sig/Sloane Route Start Time Stop Time Status Last Admin (NS Flush) 2 ml UNSCH PRN IVF 10/02/16 12:00 (Tamiflu) 75 mg BID PO 10/02/16 21:00 10/04/16 08:13 (Eliquis) 2.5 mg BID PO 10/02/16 21:00 10/04/16 08:13 (Lipitor) 20 mg HS PO 10/02/16 21:00 10/03/16 20:30 (Rocaltrol) 0.25 mcg DAILY PO 10/03/16 09:00 10/04/16 08:12 (Cardizem Cd) 300 mg DAILY PO 10/03/16 09:00 10/04/16 08:13 (Neurontin) 100 mg BID PO 10/02/16 21:00 10/04/16 08:13 (Synthroid) 125 mcg DAILY@06 PO 10/03/16 06:00 10/04/16 05:29 (Lopressor) 50 mg BID PO 10/02/16 21:00 10/04/16 08:15 (Vitamin D3) 400 units BID PO 10/02/16 21:00 10/04/16 08:13 (Prinivil) 40 mg DAILY PO 10/03/16 09:00 10/04/16 08:13 (Theragran M Tab) 1 tab BID PO 10/02/16 21:00 10/04/16 08:13 Pantoprazole Sodium 20 mg 20 mg BID PO 10/02/16 21:00 10/04/16 08:13 Azithromycin 500 mg/Sodium Chloride 250 ml @ 250 mls/hr Q24H IV 10/04/16 15:15 UNV Piperacillin Sod/ Tazobactam Sod 50 ml @ 100 mls/hr Q6H IV 10/04/16 15:15 UNV (Vancomycin Inj/ NS 250 ml Inj) 262.5 ml @ 262.5 mls/ hr ONCE ONCE IV 10/04/16 15:15 10/04/16 16:14 UNV Family History could not be obtained. Social History Never smoked Occasional gin with orange juice No history of substance abuse. Patient activity baseline limited by her weight. She gets around with a cane slowly and for longer walks with a walker. Resident of half-way. Physical Exam Vital Signs Vital Signs Date Time Temp Pulse Resp B/P Pulse Ox O2 Delivery O2 Flow Rate FiO2 10/04/16 12:00 64 10/04/16 11:11 92 45 10/04/16 11:00 81 10/04/16 11:00 95 Bi-Pap 45 10/04/16 11:00 100.2 70 21 136/62 95 10/04/16 10:00 72 10/04/16 09:00 80 10/04/16 08:00 99.9 86 20 140/70 96 10/04/16 08:00 86 10/04/16 08:00 96 Nasal Cannula 4.00 10/04/16 07:00 90 10/04/16 06:00 86 10/04/16 05:00 83 10/04/16 04:00 84 10/04/16 03:00 95 Nasal Cannula 4.00 10/04/16 03:00 84 18 141/69 95 10/04/16 03:00 78 10/04/16 02:00 78 10/04/16 01:00 78 10/04/16 00:00 75 10/03/16 23:00 75 10/03/16 23:00 98.7 74 20 130/60 100 10/03/16 23:00 100 Nasal Cannula 4.00 10/03/16 22:00 76 10/03/16 21:00 78 10/03/16 20:00 80 10/03/16 19:37 92 Nasal Cannula 4.00 10/03/16 19:00 80 10/03/16 19:00 95 Nasal Cannula 4.00 10/03/16 19:00 98.0 75 18 107/49 95 10/03/16 18:01 80 10/03/16 17:58 76 10/03/16 16:00 74 10/03/16 15:46 99 Nasal Cannula 8.00 10/03/16 15:36 98.7 72 20 126/84 99 Physical Exam GENERAL: Morbidly Obese AAF patient, in moderate respiratory distress using accessory muscles of respiration while on BiPAP. SKIN: No rashes, ecchymoses or lesions. Cool and dry. HEAD: Atraumatic. Normocephalic. No temporal or scalp tenderness. EYES: Pupils equal round and reactive. No scleral icterus. No injection or drainage. ENT: Nose without bleeding, purulent drainage or septal hematoma. Throat without erythema, tonsillar hypertrophy or exudate. Uvula midline. Airway patent. NECK: Trachea midline. Large neck. Supple, nontender, no meningeal signs. CARDIOVASCULAR: Regular rate and rhythm without murmurs, gallops, or rubs. RESPIRATORY: Wheezing bilaterally. Bilateral decreased air entry janell in bases. GASTROINTESTINAL: Abdomen soft, non-tender, nondistended. MUSCULOSKELETAL: Extremities without clubbing, cyanosis, or edema. NEUROLOGICAL: Opens eyes spontaneously on verbal command loud, appears lethargic. Does not follow commands. Psych: could not be assessed. IV line sites with no e/o infection. Laboratory Laboratory Tests Test 10/03/16 10/03/16 10/03/16 10/04/16 17:05 18:25 18:53 14:15 Blood Gas Puncture Site RT RADIAL RT RADIAL LT RADIAL Blood Gas Patient Temperature 98.6 98.6 98.6 Blood Gas HCO3 32 32 32 Blood Gas Base Excess 5.8 5.5 6.2 Blood Gas Oxygen Saturation 86 90 91 Arterial Blood pH 7.28 7.29 7.31 Arterial Blood Partial 71 69 66 Pressure CO2 Arterial Blood Partial 60 71 78 Pressure O2 Arterial Blood Oxygen Content 12.6 11.4 11.3 Arterial Blood 2.1 2.4 3.0 Carboxyhemoglobin Arterial Blood Methemoglobin 1.0 0.8 1.1 Blood Gas Hemoglobin 10.5 8.9 8.7 Oxygen Delivery Device NASAL CANNULA NASAL CANNULA BiPAP Blood Gas Liter Flow 2 4 Thyroid Stimulating Hormone 1.030 3rd Gen Blood Gas Ventilator Setting IPAP 14 EPAP 8 Blood Gas Inspired Oxygen 45 Date/Time Procedure Status Source Growth 10/03/16 11:35 Aerobic Blood Culture - Preliminary Resulted Blood Peripheral NO GROWTH IN 1 DAY 10/03/16 11:35 Anaerobic Blood Culture - Preliminary Resulted Blood Peripheral NO GROWTH IN 1 DAY 10/02/16 11:00 Influenza Types A,B Antigen (LAYLA) - Final Complete Nasal Aspirate Positive For Flu A Antigen Result Diagram: 10/02/16 1030 10/02/16 1030 Imaging Last Impressions Chest X-Ray 10/04/16 1314 Signed Impressions: Service Date/Time: Tuesday, October 04, 2016 13:46 - CONCLUSION: Slight interval worsening in aeration Duncan Delgado MD Assessment and Plan Assessment and Plan Influenza A positive Pneumonia Possible secondary bacterial pneumonia. Recent admission at risk for Health care associated organisms. Staph epidermidis bacteremia: ? real vs skin contamination during collection. Will follow repeat cultures to reassess since this is a readmission and pt had PIV lines in prior admission. Acute respiratory failure on BiPAP may need intubation and transfer to ICU Acute on chronic renal failure. Acute metabolic encephalopathy: infection, respiratory failure, renal failure. Morbid obesity. HTN DM with neuropathy and nephropathy Recs: Start Zosyn IV (renal dose adjusted by me) Vanco IV one time dose. Further dosing based on levels. Start Azithro IV Check Urine legionella antigen Check Pneumococcal antigen continue Tamiflu Continue droplet isolation If intubated please send sputum culture and sensitivity. Transfer to ICU Becky Carvalho to consult Corporate Treasurer as ongoing respiratory acidosis. Follow cultures Follow clinically. critical thinking and decision making. Brigitte Dias MD Oct 04, 2016 15:00
--- NOTE | 2016-10-04 15:06 | RADRPT ---
EXAM DATE/TIME: 10/04/2016 13:46 [facility] COMPARISON: CHEST SINGLE AP, October 02, 2016, 10:06. INDICATIONS : Fever. MEDICAL HISTORY : Hypercholesterolemia. Hypertension. a-fib, gout, diabetes SURGICAL HISTORY : Cholecystectomy. Bowel surgery. ENCOUNTER: Subsequent ACUITY: 3 days PAIN SCORE: Non-responsive. LOCATION: Bilateral chest FINDINGS: There is mild airspace disease at the left base. Central interstitial infiltrates appear slightly wor se then on previous. Accounting for rotation, the cardiac contours are grossly stable. CONCLUSION: Slight interval worsening in aeration Duncan Delgado MD on October 04, 2016 at 15:03 Board Certified Radiologist. This report was verified electronically.
[2016-10-04] MEDS ORDERED: VANCOMYCIN INJ 1,250 MG in SODIUM CHLOR 0.9% 250 ML INJ 250 ML IV ONE (16:00)
[2016-10-04] MEDS ORDERED: POTASSIUM CHLOR 40 MEQ PREMIX 100 ML IV PRN ×2 (17:00)
[2016-10-04] MEDS ORDERED: MAGNESIUM SULFATE INJ 4 GM in SODIUM CHLORIDE 0.9% INJ 92 ML IV PRN (17:00)
[2016-10-04] MEDS ORDERED: SODIUM PHOSPHATE INJ 30 MMOL in SODIUM CHLOR 0.9% 250 ML INJ 240 ML IV PRN (17:00)
[2016-10-04] MEDS ORDERED: ENOXAPARIN SODIUM 40 MG/0.4 ML SYRINGE SQ SCH (17:00)
[2016-10-04] MEDS ORDERED: MAGNESIUM OXIDE 400 MG TAB PO PRN (17:00)
[2016-10-04] MEDS ORDERED: POTASSIUM CHLOR 20 MEQ PREMIX 100 ML IV PRN ×2 (17:00)
[2016-10-04] MEDS ORDERED: POTASSIUM PHOSPHATE MONOBASIC 500 MG TAB PO/TUBE PRN (17:00)
[2016-10-04] MEDS ORDERED: RESP: ALBUTEROL 2.5 MG/IPRATROPIUM 0.5 MG NEB (PRN) INH (17:00)
[2016-10-04] MEDS ORDERED: DEXTROSE 50% IN WATER 50 ML VIAL(D50) IV PUSH PRN (17:00)
[2016-10-04] MEDS ORDERED: POTASSIUM PHOSPHATE INJ 30 MMOL in SODIUM CHLOR 0.9% 250 ML INJ 250 ML IV PRN (17:00)
[2016-10-04] MEDS ORDERED: POTASSIUM PHOSPHATE MONOBASIC 500 MG TAB PO PRN (17:00)
[2016-10-04] MEDS ORDERED: MAGNESIUM SULFATE INJ 2 GM in SODIUM CHLORIDE 0.9% INJ 96 ML IV PRN (17:00)
--- NOTE | 2016-10-04 17:10 | PD.CONS ---
[facility] Service Critical Care Medicine Consult Requested By Dr. Dahl Reason for Consult hypercarbic respiratory failure Primary Care Physician Duncan Alba MD History of Present Illness This is an 81-year-old female with a past medical history of hypertension, A. fib, hypothyroidism, morbid obesity, likely obstructive sleep apnea who was recently admitted 08/2016 due to hypercarbic respiratory failure. At that time she was noted to have ammonia and treated with by mouth Levaquin and sent to a SNF for approximately a week. She re-presented with complaints of worsening shortness of breath. She was admitted to the hospital with flu positive hypoxia. This afternoon, she became worsening Biran somnolent with worsening hypercarbia and respiratory acidosis. She was placed on BiPAP. She is moved to the intensive care unit. Critical care medicine is consulted to evaluate and manage her hypercarbic respiratory failure. I evaluated the patient she was too somnolent to participate in answering her questions. She did arouse to voice, but quickly went back to sleep. She is currently on BiPAP. Review of Systems ROS Limitations: Clinical Condition, Altered Mental Status Past Family Social History Allergies: Coded Allergies: Celebrex (Verified Allergy, Severe, SYNCOPE, 10/02/16) Past Medical History The patient is too somnolent to participate in a past medical history. Per chart review: Hypertension Atrial fibrillation Diabetes type 2 insulin-requiring Hypothyroidism Hyperlipidemia Neuropathy diabetic Morbid Obesity Probable Obstructive Sleep Apnea Past Surgical History The patient is too somnolent to participate in a past surgical history. Per chart review: Total thyroidectomy in 2010 secondary to thyroid cancer History of partial small bowel resection Cholecystectomy Reported Medications Patient is too somnolent to provide her home medication list. Per chart review: Lisinopril 40 mg daily Adequacy 2.5 mg twice a day Gabapentin 100 mg twice a day Lopressor 50 mg twice a Cardizem CD 300 mg daily Lantus 19 units at bedtime Multivitamin Omeprazole Synthroid 125 g daily Calcitriol 0.25 mg daily Vitamin D 400 units twice a day atorvastatin 20 mg at bedtime Active Ordered Medications See MAR Family History Patient is too somnolent provide family history. It is likely not contributory to her acute illness Social History Patient is unable to provide past social history. Per chart review: Never smoked Occasional gin with orange juice No history of substance abuse Physical Exam Vital Signs Vital Signs Date Time Temp Pulse Resp B/P Pulse Ox O2 Delivery O2 Flow Rate FiO2 4/4/17 16:00 68 10/04/16 15:00 72 10/04/16 15:00 99.5 75 13 159/79 100 10/04/16 15:00 95 Bi-Pap 45 10/04/16 14:00 80 10/04/16 13:00 62 10/04/16 12:00 64 10/04/16 11:11 92 45 10/04/16 11:00 81 10/04/16 11:00 95 Bi-Pap 45 10/04/16 11:00 100.2 70 21 136/62 95 10/04/16 10:00 72 10/04/16 09:00 80 10/04/16 08:00 99.9 86 20 140/70 96 10/04/16 08:00 86 10/04/16 08:00 96 Nasal Cannula 4.00 10/04/16 07:00 90 10/04/16 06:00 86 10/04/16 05:00 83 10/04/16 04:00 84 10/04/16 03:00 95 Nasal Cannula 4.00 10/04/16 03:00 84 18 141/69 95 10/04/16 03:00 78 10/04/16 02:00 78 10/04/16 01:00 78 10/04/16 00:00 75 10/03/16 23:00 75 10/03/16 23:00 98.7 74 20 130/60 100 10/03/16 23:00 100 Nasal Cannula 4.00 10/03/16 22:00 76 10/03/16 21:00 78 10/03/16 20:00 80 10/03/16 19:37 92 Nasal Cannula 4.00 10/03/16 19:00 80 10/03/16 19:00 95 Nasal Cannula 4.00 10/03/16 19:00 98.0 75 18 107/49 95 10/03/16 18:01 80 10/03/16 17:58 76 Physical Exam GENERAL: Morbidly obese female, somnolent but arousable, on BiPAP, moderate distress due to respiratory failure HEENT:. atraumatic. pupils equal, round reactive, conjugate. mucous membranes are moist. NECK: Morbid obesity and increased neck circumference prevents accurate assessment of JVD. Trachea is midline. BiPAP in place. CHEST: Very decreased nearly absent breath sounds bilaterally. No wheezing. Equal chest rise. CARDIOVASCULAR: Normal rate, irregularly irregular rhythm. No appreciable murmurs. ABDOMEN: Obese, soft, nontender, nondistended. No guarding. MUSCULOSKELETAL: No peripheral edema. Distal pulses 2+. NEUROLOGICAL: RASS -2. Arousable voice. Does not follow commands. Briskly purposeful Laboratory Laboratory Tests Test 10/03/16 10/03/16 10/03/16 10/04/16 17:05 18:25 18:53 14:15 Blood Gas Puncture Site RT RADIAL RT RADIAL LT RADIAL Blood Gas Patient Temperature 98.6 98.6 98.6 Blood Gas HCO3 32 32 32 Blood Gas Base Excess 5.8 5.5 6.2 Blood Gas Oxygen Saturation 86 90 91 Arterial Blood pH 7.28 7.29 7.31 Arterial Blood Partial 71 69 66 Pressure CO2 Arterial Blood Partial 60 71 78 Pressure O2 Arterial Blood Oxygen Content 12.6 11.4 11.3 Arterial Blood 2.1 2.4 3.0 Carboxyhemoglobin Arterial Blood Methemoglobin 1.0 0.8 1.1 Blood Gas Hemoglobin 10.5 8.9 8.7 Oxygen Delivery Device NASAL CANNULA NASAL CANNULA BiPAP Blood Gas Liter Flow 2 4 Thyroid Stimulating Hormone 1.030 3rd Gen Blood Gas Ventilator Setting IPAP 14 EPAP 8 Blood Gas Inspired Oxygen 45 Date/Time Procedure Status Source Growth 10/03/16 11:35 Aerobic Blood Culture - Preliminary Resulted Blood Peripheral NO GROWTH IN 1 DAY 10/03/16 11:35 Anaerobic Blood Culture - Preliminary Resulted Blood Peripheral NO GROWTH IN 1 DAY 10/02/16 11:00 Influenza Types A,B Antigen (LAYLA) - Final Complete Nasal Aspirate Positive For Flu A Antigen Result Diagram: 10/02/16 1030 10/02/16 1030 Imaging Last Impressions Chest X-Ray 10/04/16 1314 Signed Impressions: Service Date/Time: Tuesday, October 04, 2016 13:46 - CONCLUSION: Slight interval worsening in aeration Duncan Delgado MD Assessment and Plan Assessment and Plan Assessment: This is an 81-year-old female with a history of recent hypercarbic respiratory failure who presents now with recurrent hypercarbic and hypoxic respiratory failure, flu positive, likely secondary bacterial infection, and gram positive bacteremia. I agree with transitioning her to an ICU setting. She is at very high risk for intubation, and based on her airway exam, would be very high risk for anticipated difficult airway. We will monitor on BiPAP with serial ABGs, if she does not improve we will proceed with intubation and mechanical ventilation. 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 Plan: 1. Hypercarbic and Hypoxic Respiratory Failure -- BiPAP. -- methylpred 60 iv q12h for possible copd exacerbation? -- serial ABG -- will proceed with intubation if not improving clinically -- am cxr -- pulm: Dr. Lou following 2. Influenza pneumonia -- Continue Tamiflu 3. Possible superimposed secondary bacterial pneumonia -- zosyn -- ID following: Dr. Dias 4. G+ bacteremia -- vanc, zosyn -- f/u sensitivities 5. Morbid Obesity -- NPO while somnolent -- when more awake, nursing bedside swallow eval, and slowly advance to clears. daily cbc, bmp ppi, SCD, Lovenox Dispo: admit to the ICU This patient remains critically ill with one or more organ systems which are or may become a threat to life. I have spent in excess of 39 minutes discontinuously in the care and management of this patient. This time is exclusive of procedures, and includes, but is not limited to, evaluation of the patient, review of the medical record, discussions with family, consultants, nursing staff, or respiratory therapy, and documentation in the medical record. Code Status Full Code Discussed Condition With , Dr. Dias, bedside RN. Quan Mathews MD Oct 04, 2016 17:10
[2016-10-04] MEDS: INSULIN NovoLIN REGULAR SUPPLEMENTAL SCALE SQ SCH (18:00)
[2016-10-04] MEDS: AZITHROMYCIN INJ 500 MG in SODIUM CHLOR 0.9% 250 ML INJ 250 ML IV SCH (18:35)
[2016-10-04] MEDS: PIPERACIL-TAZO 3.375 GM PREMIX 50 ML IV SCH ×2 (18:35→21:28)
[2016-10-04] MEDS: RESP: ALBUTEROL 2.5 MG/IPRATROPIUM 0.5 MG NEB (SCH) INH (20:35)
[2016-10-04] MEDS: methylPREDNISolone SOD SUCC 125 MG/2 ML VIAL IV PUSH SCH (21:14)
[2016-10-04] MEDS: ATORVASTATIN 20 MG TAB PO SCH (21:14)
[2016-10-04 21:34] LABS: BLOOD GAS BASE EXCESS 4.9 mmol/L (-2-2); BLOOD GAS CARBOXYHEMOGLOBIN 2.6 % (0-4); BLOOD GAS HCO3 30 mmol/L (22-26); BLOOD GAS METHEMOGLOBIN 0.8 % (0-2); BLOOD GAS O2 HGB SATURATION 95 % (90-100); BLOOD GAS OXYGEN CONTENT 16.5 Vol % (12.0-20.0); BLOOD GAS PCO2 57 mmHg (38-42); BLOOD GAS PO2 116 mmHg (61-120); BLOOD GAS TOTAL HGB 12.2 G/DL (12.0-16.0); CRITICAL VALUE YES; TEMP CORR TO 98.6
[2016-10-04 21:35] LABS: DRAW SITE LT BRACHIAL; FIO2 45 %; NUMBER OF ARTERIAL PUNCTURES 1; OXYGEN DEVICE BiPAP; STAT NO; ULNAR PULSE PRESENT; VENT SETTINGS IPAP18/EPAP8
[2016-10-04] MEDS ORDERED: CHLORHEXIDINE GLUCONATE 2 % 1 PACK (2 CLOTHS)(extra cloths) TOPICAL PRN (22:15)
[2016-10-05] VITALS (18 sets, daily range): BP systolic 99–118; BP diastolic 49–56; PULSE 65–97; RESP 12–23; TEMP 97.3–98.7; O2SAT 96–100
[2016-10-05] MEDS: RESP: ALBUTEROL 2.5 MG/IPRATROPIUM 0.5 MG NEB (SCH) INH ×7 (00:54→23:49)
[2016-10-05] MEDS: CHLORHEXIDINE GLUCONATE 2 % 1 PACK (2 CLOTHS)(taper/protocol) TOPICAL SCH (04:00)
--- NOTE | 2016-10-05 04:31 | RADRPT ---
EXAM DATE/TIME: 10/05/2016 03:41 [facility] COMPARISON: CHEST SINGLE AP, October 04, 2016, 13:46. INDICATIONS : Shortness of breath. MEDICAL HISTORY : Venous insufficiency. Hypercholesterolemia. Diabetes mellitus type II. Hypertension. A-fib. SURGICAL HISTORY : None. ENCOUNTER: Subsequent ACUITY: 2 days PAIN SCORE: Non-responsive. LOCATION: Bilateral chest FINDINGS: A single portable frontal view of the chest shows worsening consolidation involving lung bases bilate rally. Heart remains mildly enlarged. No discrete effusions. CONCLUSION: Worsening bibasilar infiltrates. Claudio Reaves Jr., MD on October 05, 2016 at 4:29 Board Certified Radiologist. This report was verified electronically.
[2016-10-05] MEDS: PIPERACIL-TAZO 3.375 GM PREMIX 50 ML IV SCH ×2 (05:10→09:25)
[2016-10-05] MEDS: LEVOTHYROXINE SODIUM 125 MCG TAB PO SCH (05:10)
[2016-10-05 05:37] LABS: HEMATOCRIT 25.3 % (35.0-46.0); MEAN CELL VOLUME 94.7 FL (80.0-100.0); MEAN CORPUSCULAR HEMOGLOBIN 29.8 PG (27.0-34.0); MEAN CORPUSCULAR HGB CONC 31.5 % (32.0-36.0); PLATELET COUNT 153 TH/MM3 (150-450); RED BLOOD COUNT 2.67 MIL/MM3 (4.00-5.30); RED CELL DISTRIBUTION WIDTH 16.2 % (11.6-17.2); REVIEW FLAG FINAL; WHITE BLOOD COUNT 6.3 TH/MM3 (4.0-11.0)
[2016-10-05 05:47] LABS: BLOOD GAS BASE EXCESS 0.9 mmol/L (-2-2); BLOOD GAS CARBOXYHEMOGLOBIN 2.6 % (0-4); BLOOD GAS HCO3 26 mmol/L (22-26); BLOOD GAS METHEMOGLOBIN 0.9 % (0-2); BLOOD GAS O2 HGB SATURATION 95 % (90-100); BLOOD GAS OXYGEN CONTENT 13.6 Vol % (12.0-20.0); BLOOD GAS PCO2 52 mmHg (38-42); BLOOD GAS PO2 106 mmHg (61-120); BLOOD GAS TOTAL HGB 10.1 G/DL (12.0-16.0); TEMP CORR TO 98.6
[2016-10-05 05:48] LABS: CRITICAL VALUE YES
[2016-10-05 05:49] LABS: DRAW SITE LT BRACHIAL; FIO2 45 %; NUMBER OF ARTERIAL PUNCTURES 1; OXYGEN DEVICE BiPAP; STAT NO; ULNAR PULSE PRESENT; VENT SETTINGS IPAP18/EPAP8
[2016-10-05] MEDS: INSULIN NovoLIN REGULAR SUPPLEMENTAL SCALE SQ SCH ×4 (06:00→17:56)
[2016-10-05 06:05] LABS: BICARBONATE 28.1 MEQ/L (21.0-32.0); POTASSIUM 5.4 MEQ/L (3.5-5.1)
[2016-10-05] MEDS: CHOLECALCIFEROL (VIT D3) 400 UNIT TAB PO SCH ×2 (09:00→21:32)
[2016-10-05] MEDS: LISINOPRIL 20 MG TAB PO SCH (09:00)
[2016-10-05] MEDS: APIXABAN 2.5 MG TABLET PO SCH ×2 (09:00→21:33)
[2016-10-05] MEDS: PANTOPRAZOLE SOD 20 MG DELAYED RELEASE TAB PO SCH ×2 (09:00→21:33)
[2016-10-05] MEDS: MULTIVITAMINS/MINERALS THERAPEUTIC TAB PO SCH ×2 (09:00→21:33)
[2016-10-05] MEDS: DILTIAZEM-CD 300 MG CAP ER PO SCH (09:00)
[2016-10-05] MEDS: OSELTAMIVIR PHOSPHATE 75 MG CAP PO SCH ×2 (09:00→21:33)
[2016-10-05] MEDS: METOPROLOL TARTRATE 50 MG TAB PO SCH ×2 (09:00→21:32)
[2016-10-05] MEDS: CALCITRIOL 0.25 MCG CAP PO SCH (09:00)
[2016-10-05] MEDS: methylPREDNISolone SOD SUCC 125 MG/2 ML VIAL IV PUSH SCH ×2 (09:23→21:32)
--- NOTE | 2016-10-05 10:19 | HHI.CCPN ---
Subjective Remarks/Hospital Course Hospital Course: This is an 81-year-old female with a past medical history of hypertension, A. fib, hypothyroidism, morbid obesity, likely obstructive sleep apnea who was recently admitted 08/2016 due to hypercarbic respiratory failure. At that time she was noted to have ammonia and treated with by mouth Levaquin and sent to a SNF for approximately a week. She re-presented with complaints of worsening shortness of breath. She was admitted to the hospital with flu positive hypoxia. This afternoon, she became worsening Brian somnolent with worsening hypercarbia and respiratory acidosis. She was placed on BiPAP. She is moved to the intensive care unit. Critical care medicine is consulted to evaluate and manage her hypercarbic respiratory failure. I evaluated the patient she was too somnolent to participate in answering her questions. She did arouse to voice, but quickly went back to sleep. She is currently on BiPAP. Subjective: 10/05: improved. blood gas improving as well. more awake and alert. blood cultures growing resistant staph epi, unclear if this is contaminant or real. on vancomycin. will let ID guide this. BNP slightly elevated, Cr slightly uptrended, but she has been as high as the 3s on prior admission. It appears baseline from a year ago was 1.5. Objective Vital Signs Date Time Temp Pulse Resp B/P Pulse Ox O2 Delivery O2 Flow Rate FiO2 10/05/16 08:31 99 Nasal Cannula 4.00 10/05/16 08:00 45 10/05/16 08:00 79 10/05/16 08:00 97.3 16 116/56 Intake and Output 10/04/16 10/04/16 10/05/16 08:00 16:00 00:00 Intake Total 240 ml 782 ml Output Total 700 ml 800 ml Balance -460 ml -18 ml Result Diagram: 10/05/16 0437 10/05/16 0437 Other Results Microbiology Date/Time Procedure Status Source Growth 10/02/16 11:00 Influenza Types A,B Antigen (LAYLA) - Final Complete Nasal Aspirate Positive For Flu A Antigen Laboratory Tests Test 10/04/16 10/04/16 10/05/16 14:15 21:21 05:37 Blood Gas Puncture Site LT RADIAL LT BRACHIAL LT BRACHIAL Blood Gas Patient Temperature 98.6 98.6 98.6 Blood Gas HCO3 32 mmol/L 30 mmol/L 26 mmol/L (22-26) (22-26) (22-26) Blood Gas Base Excess 6.2 mmol/L 4.9 mmol/L 0.9 mmol/L (-2-2) (-2-2) (-2-2) Blood Gas Oxygen Saturation 91 % (90-100) 95 % (90-100) 95 % (90-100) Arterial Blood pH 7.31 7.35 7.33 (7.380-7.420) (7.380-7.420) (7.380-7.420) Arterial Blood Partial 66 mmHg (38-42) 57 mmHg (38-42) 52 mmHg (38-42) Pressure CO2 Arterial Blood Partial 78 mmHg 116 mmHg 106 mmHg Pressure O2 (61-120) (61-120) (61-120) Arterial Blood Oxygen Content 11.3 Vol % 16.5 Vol % 13.6 Vol % (12.0-20.0) (12.0-20.0) (12.0-20.0) Arterial Blood 3.0 % (0-4) 2.6 % (0-4) 2.6 % (0-4) Carboxyhemoglobin Arterial Blood Methemoglobin 1.1 % (0-2) 0.8 % (0-2) 0.9 % (0-2) Blood Gas Hemoglobin 8.7 G/DL 12.2 G/DL 10.1 G/DL (12.0-16.0) (12.0-16.0) (12.0-16.0) Oxygen Delivery Device BiPAP BiPAP BiPAP Blood Gas Ventilator Setting IPAP 14 EPAP 8 IPAP18/EPAP8 IPAP18/EPAP8 Blood Gas Inspired Oxygen 45 % 45 % 45 % Imaging Last Impressions Chest X-Ray 10/04/16 1314 Signed Impressions: Service Date/Time: Tuesday, October 04, 2016 13:46 - CONCLUSION: Slight interval worsening in aeration Duncan Delgado MD Objective Remarks GENERAL: Morbidly obese female, awake, on NC this AM. no distress. HEENT:. atraumatic. pupils equal, round reactive, conjugate. mucous membranes are moist. NECK: Morbid obesity and increased neck circumference prevents accurate assessment of JVD. Trachea is midline. CHEST: slightly improved aeration. No wheezing. Equal chest rise. CARDIOVASCULAR: Normal rate, irregularly irregular rhythm. No appreciable murmurs. ABDOMEN: Obese, soft, nontender, nondistended. No guarding. MUSCULOSKELETAL: No peripheral edema. Distal pulses 2+. NEUROLOGICAL: RASS 0. follows commands. A/P Assessment and Plan Assessment: This is an 81-year-old female with a history of recent hypercarbic respiratory failure who presents now with recurrent hypercarbic and hypoxic respiratory failure, flu positive. She is clinically starting to improve. now off BiPAP. I think she continues to need BiPAP at night or with naps to further prevent hypercarbia. Continue supportive measures with steroids. Abx per ID. I will ask Nephrology to assist in the assessment of volume status and ongoing management of her acute on chronic kidney disease. Her BNP is elevated, and she does not appear to be hypovolemic to me, but with her morbid obesity, I cannot accurately assess JVD. We will watch her in an ICU for a short time longer and she can safely transition to the floor in the near future. Will reconsult hospitalist services. Patient needs to be OOB to chair TID. Plan: 1. Hypercarbic and Hypoxic Respiratory Failure -- BiPAP at night and prn. -- methylpred 60 iv q12h for possible copd exacerbation? -- pulm: Dr. Lou following 2. Influenza pneumonia -- Continue Tamiflu 3. Possible superimposed secondary bacterial pneumonia -- zosyn -- ID following: Dr. Dias 4. Staph Epi bacteremia -- vanc -- send random vanc level now. -- ID following. 5. Morbid Obesity -- nursing bedside swallow and advance diet slowly 6. Acute on Chronic Kidney Disease -- consult nephrology -- clinically appears euvolemic to me, but very difficult assessment due to morbid obesity -- BNP slightly elevated -- Cr slightly uptrending. -- daily BMP to trend. daily cbc, bmp ppi, SCD, Lovenox Dispo: remain in the ICU for now. if she continues to improve, will consider transition to floor. Quan Mathews MD Oct 05, 2016 10:19
[2016-10-05] MEDS: AZITHROMYCIN INJ 500 MG in SODIUM CHLOR 0.9% 250 ML INJ 250 ML IV SCH (14:45)
--- NOTE | 2016-10-05 15:07 | PD.CONS ---
[facility] Service Nephrology Consult Requested By Dr. Mathews Reason for Consult CKD Stage 4 Primary Care Physician Duncan Alba MD History of Present Illness 81 year old female known to me I saw her in August 2016 , creatinine of 2, she has been admitted in August with Pneumonia and now again with Flu she is feeling tired and her creatinine is 2.2 , she is passing urine, due to respiratory issues her appetite was not good, she is better today Review of Systems Constitutional: COMPLAINS OF: Fatigue Respiratory: COMPLAINS OF: Cough, Shortness of breath Cardiovascular: COMPLAINS OF: Dyspnea on Exertion Past Family Social History Allergies: Coded Allergies: Celebrex (Verified Allergy, Severe, SYNCOPE, 10/02/16) Past Medical History Diabetes hypertension Thyroid Ca A fib hyperlipidemia COPD Asthma Gout Arthritis Past Surgical History Cataract Cholecystectomy Thyroidectomy Reported Medications Reported Meds & Active Scripts Active Reported Metoprolol Tartrate 50 Mg Tab 50 Mg PO BID Lantus Solostar Pen Inj (Insulin Glargine) 300 Unit/3 Ml Pen 22 Units SQ HS Vitamin D (Cholecalciferol) 400 Unit Cap 400 Units PO BID Multivitamin Gummies Adul (Multiple Vitamins W/ Minerals) 1 Chw Chw 1 Chew PO BID Eliquis (Apixaban) 2.5 Mg Tab 2.5 Mg PO BID Calcitriol 0.25 Mcg Cap 0.25 Mcg PO DAILY Omeprazole 20 Mg Tab 20 Mg PO BID Gabapentin 100 Mg Cap 100 Mg PO BID Lisinopril 40 Mg Tab 40 Mg PO DAILY Atorvastatin (Atorvastatin Calcium) 20 Mg Tab 20 Mg PO HS Levothyroxine (Levothyroxine Sodium) 125 Mcg Tab 125 Mcg PO DAILY Diltiazem ER 24 HR 300 Mg Lexy 300 Mg PO DAILY Active Ordered Medications Current Medications Medications (Trade) Dose Ordered Sig/Sloane Route Start Time Stop Time Status Last Admin (NS Flush) 2 ml UNSCH PRN IVF 10/02/16 12:00 (Tamiflu) 75 mg BID PO 10/02/16 21:00 10/04/16 21:16 (Eliquis) 2.5 mg BID PO 10/02/16 21:00 10/04/16 21:14 (Lipitor) 20 mg HS PO 10/02/16 21:00 10/04/16 21:14 (Rocaltrol) 0.25 mcg DAILY PO 10/03/16 09:00 10/04/16 08:12 (Cardizem Cd) 300 mg DAILY PO 10/03/16 09:00 10/04/16 08:13 (Neurontin) 100 mg BID PO 10/02/16 21:00 Hold 10/04/16 08:13 (Synthroid) 125 mcg DAILY@06 PO 10/03/16 06:00 10/05/16 05:10 (Lopressor) 50 mg BID PO 10/02/16 21:00 10/04/16 21:14 (Vitamin D3) 400 units BID PO 10/02/16 21:00 10/04/16 21:14 (Prinivil) 40 mg DAILY PO 10/03/16 09:00 10/04/16 08:13 (Theragran M Tab) 1 tab BID PO 10/02/16 21:00 10/05/16 09:00 Pantoprazole Sodium 20 mg 20 mg BID PO 10/02/16 21:00 10/04/16 21:14 (Zithromax Inj/ NS 250 ml Inj) 250 ml @ 250 mls/hr Q24H IV 10/04/16 15:00 10/05/16 14:45 (D50w (Vial) Inj) 25 ml UNSCH PRN IV PUSH 10/04/16 17:00 (NovoLIN R SUPPLEMENTAL SCALE) 1 Q6HR SQ 10/04/16 18:00 10/05/16 12:00 (SoluMEDROL INJ) 60 mg Q12HR IV PUSH 10/04/16 21:00 10/05/16 09:23 Miscellaneous Information Patient in critical care unit? Ass... [id number] .XX 10/04/16 22:15 10/04/16 22:15 (Chlorhexidine 2% Cloth) 3 pack DAILY@04 TOPICAL 10/05/16 04:00 10/09/16 04:01 10/05/16 04:00 Chlorhexidine Gluconate 3 pack 3 pack UNSCH PRN TOPICAL 10/04/16 22:15 10/09/16 22:09 (Zosyn 2.25 Gm Premix) 50 ml @ 100 mls/hr Q6H IV 10/05/16 16:00 Family History diabetes positive Social History denies smoking or ETOH Physical Exam Vital Signs Vital Signs Date Time Temp Pulse Resp B/P Pulse Ox O2 Delivery O2 Flow Rate FiO2 10/05/16 14:00 91 10/05/16 12:00 87 10/05/16 12:00 97 Nasal Cannula 4.00 10/05/16 12:00 98.6 87 23 115/53 97 10/05/16 10:00 85 10/05/16 08:31 99 Nasal Cannula 4.00 10/05/16 08:00 98 Bi-Pap 45 10/05/16 08:00 79 10/05/16 08:00 97.3 79 16 116/56 98 10/05/16 06:00 71 10/05/16 04:24 100 45 10/05/16 04:00 100 Bi-Pap 45 10/05/16 04:00 66 10/05/16 04:00 97.7 66 12 99/49 100 10/05/16 02:00 65 10/05/16 00:54 100 45 10/05/16 00:00 100 Bi-Pap 45 10/05/16 00:00 66 10/05/16 00:00 97.9 66 17 104/51 97 10/04/16 22:00 72 10/04/16 20:36 100 45 10/04/16 20:00 82 10/04/16 20:00 100.1 82 19 125/58 100 10/04/16 20:00 100 Bi-Pap 45 10/04/16 18:00 80 10/04/16 18:00 100 Bi-Pap 45 10/04/16 17:00 77 10/04/16 17:00 100.6 77 17 158/68 98 10/04/16 16:46 0 45 10/04/16 16:00 68 10/04/16 15:00 72 10/04/16 15:00 99.5 75 13 159/79 100 10/04/16 15:00 95 Bi-Pap 45 Physical Exam GENERAL: Well-nourished, well-developed patient. SKIN: Warm and dry. HEAD: Normocephalic. EYES: No scleral icterus. No injection or drainage. NECK: Supple, trachea midline. No JVD or lymphadenopathy. CARDIOVASCULAR: Regular rate and rhythm without murmurs, gallops, or rubs. RESPIRATORY: Breath sounds Diminished at bases GASTROINTESTINAL: Abdomen soft, non-tender, nondistended. EXTREMITIES: No cyanosis, or edema. NEUROLOGICAL: Awake, alert, and oriented x 3. Non-focal. Laboratory Laboratory Tests Test 10/04/16 10/04/16 10/05/16 10/05/16 16:50 21:21 04:37 05:37 Nasal Screen MRSA (PCR) NEGATIVE Blood Gas Puncture Site LT BRACHIAL LT BRACHIAL Blood Gas Patient Temperature 98.6 98.6 Blood Gas HCO3 30 26 Blood Gas Base Excess 4.9 0.9 Blood Gas Oxygen Saturation 95 95 Arterial Blood pH 7.35 7.33 Arterial Blood Partial 57 52 Pressure CO2 Arterial Blood Partial 116 106 Pressure O2 Arterial Blood Oxygen Content 16.5 13.6 Arterial Blood 2.6 2.6 Carboxyhemoglobin Arterial Blood Methemoglobin 0.8 0.9 Blood Gas Hemoglobin 12.2 10.1 Oxygen Delivery Device BiPAP BiPAP Blood Gas Ventilator Setting IPAP18/EPAP8 IPAP18/EPAP8 Blood Gas Inspired Oxygen 45 45 White Blood Count 6.3 Red Blood Count 2.67 Hemoglobin 8.0 Hematocrit 25.3 Mean Corpuscular Volume 94.7 Mean Corpuscular Hemoglobin 29.8 Mean Corpuscular Hemoglobin 31.5 Concent Red Cell Distribution Width 16.2 Platelet Count 153 Mean Platelet Volume 9.3 Sodium Level 136 Potassium Level 5.4 Chloride Level 97 Carbon Dioxide Level 28.1 Anion Gap 11 Blood Urea Nitrogen 31 Creatinine 2.23 Estimat Glomerular Filtration 26 Rate Random Glucose 158 Calcium Level 9.1 Test 10/05/16 10:53 Random Vancomycin Level 14.8 Date/Time Procedure Status Source Growth 10/03/16 11:35 Aerobic Blood Culture - Preliminary Resulted Blood Peripheral NO GROWTH IN 2 DAYS 10/03/16 11:35 Anaerobic Blood Culture - Preliminary Resulted Blood Peripheral NO GROWTH IN 2 DAYS 10/02/16 11:00 Influenza Types A,B Antigen (LAYLA) - Final Complete Nasal Aspirate Positive For Flu A Antigen Result Diagram: 10/05/16 0437 10/05/16 0437 Imaging Last Impressions Chest X-Ray 10/05/16 0600 Signed Impressions: Service Date/Time: Wednesday, October 05, 2016 03:41 - CONCLUSION: Worsening bibasilar infiltrates. Claudio Reaves Jr., MD Assessment and Plan Problem List: (1) Acute on chronic renal insufficiency Plan: patient has CKD with ARF due to underlying infection Hydrate with fluid cautiously follow BMP avoid Nephrotoxins (2) Hyperkalemia Plan: Kayexalate ordered (3) Influenza A Plan: on Tamiflu (4) Pulmonary infiltrates Plan: due to infection (5) Hypertension (6) Pneumonia Plan: on Zosyn/Zithromax (7) Diabetes Plan: follow BG Problem Qualifiers (1) Hypertension: Qualified Code: I10 - Essential hypertension Tonja Grewal MD Oct 05, 2016 15:07
[2016-10-05] MEDS ORDERED: SODIUM POLYSTYRENE SULFONATE SUSP 15 GM/60 ML CUP PO ONE (15:15)
--- NOTE | 2016-10-05 15:52 | HHI.IDPN ---
Subjective Subjective Remarks Ms. Sales is an 81 y/o AAF with PMHx of HTN, atrial fibrillation, hypothyroidism, who was recently admitted here in August 2016 due to acute respiratory failure at that time was noted to have pneumonia. Patient was discharged on by mouth Levaquin/bactrim to a nearby skilled rehabilitation facility where she stayed for 7-10 days. Patient was doing well until the morning of admission when she started feeling short of breath. The patient denies any fever though the patient had some dry cough. She also complained of generalized body aches to others on admission. Came to the emergency room where on evaluation was positive for influenza A. She was also noted to be hypoxemic with requiring 5-6 L nasal cannula and progressed with resp distress needing placement on BiPAP. Specialty Plant Supervisor is on the case as well. No fever, No wbc elevation, lactic acid normal on admission. Cr was elevated from her baseline and she appears to be in acute on chronic renal failure. She is currently is on CIC. Upon my arrival patient was on BiPAP and her ABG was suggestive of ongoing respiratory acidosis based on review of numbers provided to me. Patient has had blood cultures that are positive for Staph epidermidis and repeat blood cultures are negative at this point. Patient does not have indwelling central lines on admission. Patient does have a edwards cath in place placed on 10/02/2016. ID following Flu A pneumonia and CABP. 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 She smiled and exchanged couple more jokes. No fever No rash No diarrhea. Antibiotics Zosyn IV Vanco IV x 1 dose. Influenza A Lines Line sites with no e.o infection Past Medical History reviewed Allergies: Coded Allergies: Celebrex (Verified Allergy, Severe, SYNCOPE, 10/02/16) Objective . Vital Signs Date Time Temp Pulse Resp B/P Pulse Ox O2 Delivery O2 Flow Rate FiO2 10/05/16 14:00 91 10/05/16 12:00 87 10/05/16 12:00 97 Nasal Cannula 4.00 10/05/16 12:00 98.6 87 23 115/53 97 10/05/16 10:00 85 10/05/16 08:31 99 Nasal Cannula 4.00 10/05/16 08:00 98 Bi-Pap 45 4/5/17 08:00 79 10/05/16 08:00 97.3 79 16 116/56 98 10/05/16 06:00 71 10/05/16 04:24 100 45 10/05/16 04:00 100 Bi-Pap 45 10/05/16 04:00 66 10/05/16 04:00 97.7 66 12 99/49 100 10/05/16 02:00 65 10/05/16 00:54 100 45 10/05/16 00:00 100 Bi-Pap 45 10/05/16 00:00 66 10/05/16 00:00 97.9 66 17 104/51 97 10/04/16 22:00 72 10/04/16 20:36 100 45 10/04/16 20:00 82 10/04/16 20:00 100.1 82 19 125/58 100 10/04/16 20:00 100 Bi-Pap 45 10/04/16 18:00 80 10/04/16 18:00 100 Bi-Pap 45 10/04/16 17:00 77 10/04/16 17:00 100.6 77 17 158/68 98 10/04/16 16:46 0 45 10/04/16 16:00 68 10/04/16 10/04/16 10/05/16 15:00 23:00 07:00 Intake Total 782 ml 280 ml Output Total 800 ml 125 ml Balance -18 ml 155 ml Intake Oral 230 ml 20 ml IV Total 552 ml 260 ml Output Urine Total 800 ml 125 ml # Bowel Movements 0 . Laboratory Tests Test 10/05/16 04:37 White Blood Count 6.3 TH/MM3 Red Blood Count 2.67 MIL/MM3 Hemoglobin 8.0 GM/DL Hematocrit 25.3 % Mean Corpuscular Volume 94.7 FL Mean Corpuscular Hemoglobin 29.8 PG Mean Corpuscular Hemoglobin 31.5 % Concent Red Cell Distribution Width 16.2 % Platelet Count 153 TH/MM3 Mean Platelet Volume 9.3 FL Laboratory Tests Test 10/03/16 10/05/16 18:53 04:37 Thyroid Stimulating Hormone 1.030 uIU/ML 3rd Gen Sodium Level 136 MEQ/L Potassium Level 5.4 MEQ/L Chloride Level 97 MEQ/L Carbon Dioxide Level 28.1 MEQ/L Anion Gap 11 MEQ/L Blood Urea Nitrogen 31 MG/DL Creatinine 2.23 MG/DL Estimat Glomerular Filtration 26 ML/MIN Rate Random Glucose 158 MG/DL Calcium Level 9.1 MG/DL Microbiology Date/Time Procedure Status Source Growth 10/03/16 11:35 Aerobic Blood Culture - Preliminary Resulted Blood Peripheral NO GROWTH IN 2 DAYS 10/03/16 11:35 Anaerobic Blood Culture - Preliminary Resulted Blood Peripheral NO GROWTH IN 2 DAYS Imaging Last Impressions Chest X-Ray 10/05/16 0600 Signed Impressions: Service Date/Time: Wednesday, October 05, 2016 03:41 - CONCLUSION: Worsening bibasilar infiltrates. Claudio Reaves Jr., MD Physical Exam GENERAL: Morbidly Obese AAF patient. On NC now. SKIN: No rashes, ecchymoses or lesions. Cool and dry. HEAD: Atraumatic. Normocephalic. No temporal or scalp tenderness. EYES: Pupils equal round and reactive. No scleral icterus. No injection or drainage. ENT: Nose without bleeding, purulent drainage or septal hematoma. Throat without erythema, tonsillar hypertrophy or exudate. Uvula midline. Airway patent. NECK: Trachea midline. Large neck. Supple, nontender, no meningeal signs. CARDIOVASCULAR: Regular rate and rhythm without murmurs, gallops, or rubs. RESPIRATORY: Bilateral decreased air entry janell in bases. GASTROINTESTINAL: Abdomen soft, non-tender, nondistended. MUSCULOSKELETAL: Extremities without clubbing, cyanosis, or edema. NEUROLOGICAL: AAOx3, non focal. Psych:pleasant IV line sites with no e/o infection. Assessment & Plan Remarks Influenza A positive Pneumonia Possible secondary bacterial pneumonia. Recent admission at risk for Health care associated organisms. Staph epidermidis bacteremia: ? real vs skin contamination during collection. Will follow repeat cultures to reassess since this is a readmission and pt had PIV lines in prior admission. Acute respiratory failure on BiPAP may need intubation and transfer to ICU Acute on chronic renal failure. Acute metabolic encephalopathy: infection, respiratory failure, renal failure. Morbid obesity. HTN DM with neuropathy and nephropathy Recs: Continue Zosyn IV (renal dose adjusted by me) No further vanco doses. Continue Azithro change to oral continue Tamiflu Continue droplet isolation D.w : staph epi likely contaminant. Follow cultures Follow clinically. Brigitte Dias MD Oct 05, 2016 15:52
[2016-10-05] MEDS: SODIUM CHLOR 0.9% 1000 ML INJ 1,000 ML IV SCH (16:06)
[2016-10-05] MEDS: PIPERACIL-TAZO 2.25 GM PREMIX 50 ML IV SCH ×2 (16:06→22:00)
[2016-10-05] MEDS ORDERED: ACETAMINOPHEN 325 MG TAB PO ONE (16:45)
[2016-10-05] MEDS: ATORVASTATIN 20 MG TAB PO SCH (21:33)
[2016-10-06] VITALS (16 sets, daily range): BP systolic 107–122; BP diastolic 52–74; PULSE 66–135; RESP 14–27; TEMP 97.8–98.9; O2SAT 97–100
[2016-10-06] MEDS: RESP: ALBUTEROL 2.5 MG/IPRATROPIUM 0.5 MG NEB (SCH) INH ×5 (03:32→20:47)
[2016-10-06] MEDS: CHLORHEXIDINE GLUCONATE 2 % 1 PACK (2 CLOTHS)(taper/protocol) TOPICAL SCH (04:00)
[2016-10-06] MEDS: PIPERACIL-TAZO 2.25 GM PREMIX 50 ML IV SCH ×4 (05:19→21:27)
[2016-10-06] MEDS: LEVOTHYROXINE SODIUM 125 MCG TAB PO SCH (05:19)
[2016-10-06 05:34] LABS: HEMATOCRIT 22.7 % (35.0-46.0); MEAN CELL VOLUME 93.1 FL (80.0-100.0); MEAN CORPUSCULAR HEMOGLOBIN 29.8 PG (27.0-34.0); MEAN CORPUSCULAR HGB CONC 32.1 % (32.0-36.0); PLATELET COUNT 163 TH/MM3 (150-450); RED BLOOD COUNT 2.44 MIL/MM3 (4.00-5.30); REVIEW FLAG FINAL; WHITE BLOOD COUNT 7.2 TH/MM3 (4.0-11.0)
[2016-10-06] MEDS: INSULIN NovoLIN REGULAR SUPPLEMENTAL SCALE SQ SCH ×4 (06:00→17:36)
[2016-10-06 06:03] LABS: BICARBONATE 30.8 MEQ/L (21.0-32.0); POTASSIUM 3.9 MEQ/L (3.5-5.1)
[2016-10-06] MEDS: methylPREDNISolone SOD SUCC 125 MG/2 ML VIAL IV PUSH SCH (08:14)
[2016-10-06] MEDS: DILTIAZEM-CD 300 MG CAP ER PO SCH (08:14)
[2016-10-06] MEDS: METOPROLOL TARTRATE 50 MG TAB PO SCH ×2 (08:15→21:27)
[2016-10-06] MEDS: PANTOPRAZOLE SOD 20 MG DELAYED RELEASE TAB PO SCH ×2 (08:15→21:26)
[2016-10-06] MEDS: LISINOPRIL 20 MG TAB PO SCH (08:15)
[2016-10-06] MEDS: APIXABAN 2.5 MG TABLET PO SCH ×2 (08:15→21:28)
[2016-10-06] MEDS: CALCITRIOL 0.25 MCG CAP PO SCH (08:15)
[2016-10-06] MEDS: OSELTAMIVIR PHOSPHATE 75 MG CAP PO SCH ×2 (08:15→21:27)
[2016-10-06] MEDS: CHOLECALCIFEROL (VIT D3) 400 UNIT TAB PO SCH ×2 (08:16→21:28)
[2016-10-06] MEDS: MULTIVITAMINS/MINERALS THERAPEUTIC TAB PO SCH ×2 (08:16→21:31)
--- NOTE | 2016-10-06 12:43 | EKG ---
Date Performed: 10/06/2016 Time Performed: 08:44:04 PTAGE: 81 years EKG: Atrial flutter with rapid ventricular response with 2:1 A-V block Extensive ST-T changes ar e nonspecific Abnormal ECG NO PREVIOUS TRACING DOCTOR: Paramjit Condon Interpretating Date/Time 10/06/2016 12:41:08
[2016-10-06] MEDS ORDERED: DILTIAZEM HCL 25 MG/5 ML VIAL IV ONE (14:25)
[2016-10-06] MEDS: AZITHROMYCIN INJ 500 MG in SODIUM CHLOR 0.9% 250 ML INJ 250 ML IV SCH (14:31)
--- NOTE | 2016-10-06 15:07 | HHI.NPPN ---
Subjective History of Present Illness 81 year old with Flu, Pneumonia ARF/CKD Objective Data Data 10/05/16 10/06/16 19:00 07:00 Intake Total 290 ml 1118 ml Output Total 225 ml 500 ml Balance 65 ml 618 ml Intake Oral 100 ml 100 ml IV Total 190 ml 1018 ml Output Urine Total 225 ml 500 ml # Bowel Movements 1 Vital Signs Date Time Temp Pulse Resp B/P Pulse Ox O2 Delivery O2 Flow Rate FiO2 10/06/16 14:00 135 10/06/16 12:00 100 Nasal Cannula 2.00 10/06/16 12:00 130 10/06/16 12:00 98.1 130 18 115/74 100 10/06/16 10:00 133 10/06/16 08:31 99 Nasal Cannula 3.00 10/06/16 08:00 97.8 82 27 110/65 100 10/06/16 08:00 100 Nasal Cannula 3.00 10/06/16 08:00 82 10/06/16 06:00 66 10/06/16 04:49 97 35 10/06/16 04:00 99 Bi-Pap 45 10/06/16 04:00 75 10/06/16 04:00 98.7 75 14 122/57 99 10/06/16 02:00 75 10/06/16 00:00 98.9 74 17 107/52 100 10/06/16 00:00 74 10/06/16 00:00 100 Bi-Pap 45 10/05/16 23:49 97 35 10/05/16 22:00 91 10/05/16 21:03 100 35 10/05/16 20:13 96 Nasal Cannula 3.00 10/05/16 20:00 98.5 94 18 108/52 96 10/05/16 20:00 96 Nasal Cannula 4.00 10/05/16 20:00 94 10/05/16 18:00 97 10/05/16 16:00 87 10/05/16 16:00 98.7 87 22 118/56 99 10/05/16 16:00 99 Nasal Cannula 4.00 -: 10/06/16 0516 10/06/16 0516 Physical Exam General Appearance: Well Developed, Well Nourished Neck Neck Exam: Neck Supple Pulmonary Resp Exam: Decreased Bases Cardiology CV Exam: Regular Gastrointestinal/Abdomen GI Exam: Soft, Non-Tender, Bowel Sounds Present Integumentary Skin Exam: Clear Extremeties Extremities Exam: No Edema Assessment/Plan Problem List: (1) Acute on chronic renal insufficiency Plan: patient has CKD with ARF due to underlying infection Hydrate with fluid cautiously Cr higher monitor BMP (2) Hyperkalemia Plan: Kayexalate ordered (3) Influenza A Plan: on Tamiflu (4) Pulmonary infiltrates Plan: due to infection (5) Hypertension (6) Pneumonia Plan: on Zosyn/Zithromax (7) Diabetes Plan: follow BG Problem Qualifiers (1) Hypertension: Qualified Code: I10 - Essential hypertension Tonja Grewal MD Oct 06, 2016 15:07
--- NOTE | 2016-10-06 16:28 | HHI.IDPN ---
Subjective Subjective Remarks Ms. Sales is an 81 y/o AAF with PMHx of HTN, atrial fibrillation, hypothyroidism, who was recently admitted here in August 2016 due to acute respiratory failure at that time was noted to have pneumonia. Patient was discharged on by mouth Levaquin/bactrim to a nearby skilled rehabilitation facility where she stayed for 7-10 days. Patient was doing well until the morning of admission when she started feeling short of breath. The patient denies any fever though the patient had some dry cough. She also complained of generalized body aches to others on admission. Came to the emergency room where on evaluation was positive for influenza A. She was also noted to be hypoxemic with requiring 5-6 L nasal cannula and progressed with resp distress needing placement on BiPAP. Golf Club Facer is on the case as well. No fever, No wbc elevation, lactic acid normal on admission. Cr was elevated from her baseline and she appears to be in acute on chronic renal failure. She is currently is on CIC. Upon my arrival patient was on BiPAP and her ABG was suggestive of ongoing respiratory acidosis based on review of numbers provided to me. Patient has had blood cultures that are positive for Staph epidermidis 10/04 bottles and repeat blood cultures are negative at this point. Patient does not have indwelling central lines on admission. Patient does have a edwards cath in place placed on 10/02/2016. ID following Flu A pneumonia and CABP. Overnight events reviewed Alert and oriented x 3 No fever No rash No diarrhea. Heart rate 135 in Afib. Hospitalist aware per RN Antibiotics Zosyn IV Vanco IV x 1 dose. Influenza A Lines Line sites with no e.o infection Past Medical History reviewed Allergies: Coded Allergies: Celebrex (Verified Allergy, Severe, SYNCOPE, 10/02/16) Objective . Vital Signs Date Time Temp Pulse Resp B/P Pulse Ox O2 Delivery O2 Flow Rate FiO2 10/06/16 14:00 135 10/06/16 12:00 100 Nasal Cannula 2.00 10/06/16 12:00 130 10/06/16 12:00 98.1 130 18 115/74 100 10/06/16 10:00 133 10/06/16 08:31 99 Nasal Cannula 3.00 10/06/16 08:00 97.8 82 27 110/65 100 10/06/16 08:00 100 Nasal Cannula 3.00 10/06/16 08:00 82 10/06/16 06:00 66 10/06/16 04:49 97 35 10/06/16 04:00 99 Bi-Pap 45 10/06/16 04:00 75 10/06/16 04:00 98.7 75 14 122/57 99 10/06/16 02:00 75 10/06/16 00:00 98.9 74 17 107/52 100 10/06/16 00:00 74 10/06/16 00:00 100 Bi-Pap 45 10/05/16 23:49 97 35 10/05/16 22:00 91 10/05/16 21:03 100 35 10/05/16 20:13 96 Nasal Cannula 3.00 10/05/16 20:00 98.5 94 18 108/52 96 10/05/16 20:00 96 Nasal Cannula 4.00 10/05/16 20:00 94 10/05/16 18:00 97 10/05/16 10/05/16 10/06/16 15:00 23:00 07:00 Intake Total 290 ml 626 ml 492 ml Output Total 225 ml 250 ml 250 ml Balance 65 ml 376 ml 242 ml Intake Oral 100 ml 50 ml 50 ml IV Total 190 ml 576 ml 442 ml Output Urine Total 225 ml 250 ml 250 ml # Bowel Movements 1 . Laboratory Tests Test 10/05/16 10/06/16 04:37 05:16 White Blood Count 6.3 TH/MM3 7.2 TH/MM3 Red Blood Count 2.67 MIL/MM3 2.44 MIL/MM3 Hemoglobin 8.0 GM/DL 7.3 GM/DL Hematocrit 25.3 % 22.7 % Mean Corpuscular Volume 94.7 FL 93.1 FL Mean Corpuscular Hemoglobin 29.8 PG 29.8 PG Mean Corpuscular Hemoglobin 31.5 % 32.1 % Concent Red Cell Distribution Width 16.2 % 16.0 % Platelet Count 153 TH/MM3 163 TH/MM3 Mean Platelet Volume 9.3 FL 8.0 FL Laboratory Tests Test 10/05/16 10/06/16 04:37 05:16 Sodium Level 136 MEQ/L 135 MEQ/L Potassium Level 5.4 MEQ/L 3.9 MEQ/L Chloride Level 97 MEQ/L 95 MEQ/L Carbon Dioxide Level 28.1 MEQ/L 30.8 MEQ/L Anion Gap 11 MEQ/L 9 MEQ/L Blood Urea Nitrogen 31 MG/DL 48 MG/DL Creatinine 2.23 MG/DL 2.83 MG/DL Estimat Glomerular Filtration 26 ML/MIN 19 ML/MIN Rate Random Glucose 158 MG/DL 277 MG/DL Calcium Level 9.1 MG/DL 8.5 MG/DL Phosphorus Level 4.0 MG/DL Parathyroid Hormone (Intact) 165.8 PG/ML Imaging Last Impressions Chest X-Ray 10/05/16 0600 Signed Impressions: Service Date/Time: Wednesday, October 05, 2016 03:41 - CONCLUSION: Worsening bibasilar infiltrates. Claudio Reaves Jr., MD Physical Exam GENERAL: Morbidly Obese AAF patient. On NC now. SKIN: No rashes, ecchymoses or lesions. Cool and dry. HEAD: Atraumatic. Normocephalic. No temporal or scalp tenderness. EYES: Pupils equal round and reactive. No scleral icterus. No injection or drainage. ENT: Nose without bleeding, purulent drainage or septal hematoma. Throat without erythema, tonsillar hypertrophy or exudate. Uvula midline. Airway patent. NECK: Trachea midline. Large neck. Supple, nontender, no meningeal signs. CARDIOVASCULAR: Regular rate and rhythm without murmurs, gallops, or rubs. RESPIRATORY: Bilateral decreased air entry janell in bases. GASTROINTESTINAL: Abdomen soft, non-tender, nondistended. MUSCULOSKELETAL: Extremities without clubbing, cyanosis, or edema. NEUROLOGICAL: AAOx3, non focal. Psych:pleasant IV line sites with no e/o infection. Assessment & Plan Remarks Influenza A positive Pneumonia Possible secondary bacterial pneumonia. Recent admission at risk for Health care associated organisms. Staph epidermidis bacteremia: ? real vs skin contamination during collection. Will follow repeat cultures to reassess since this is a readmission and pt had PIV lines in prior admission. Acute respiratory failure on BiPAP may need intubation and transfer to ICU Acute on chronic renal failure. Acute metabolic encephalopathy: infection, respiratory failure, renal failure. Morbid obesity. HTN DM with neuropathy and nephropathy Recs: Continue Zosyn IV (renal dose adjusted by me) No further vanco doses. Clinically doing well. Continue Azithro change to oral continue Tamiflu Continue droplet isolation Staph epi appears to be contaminant. Follow cultures Follow clinically. Brigitte Dias MD Oct 06, 2016 16:28
--- NOTE | 2016-10-06 16:28 | HHI.PR ---
Subjective Remarks awake and alert, interactive, no complain of cough or chest pain or shortness of breath while in bed telemetry SR- 80s went into rapid afib RVR- 130-140s this am-asymptomatic converted to SR with 10 mg IV Cardizem push Objective Vitals Vital Signs Date Time Temp Pulse Resp B/P Pulse Ox O2 Delivery O2 Flow Rate FiO2 10/06/16 14:00 135 10/06/16 12:00 100 Nasal Cannula 2.00 10/06/16 12:00 130 10/06/16 12:00 98.1 130 18 115/74 100 10/06/16 10:00 133 10/06/16 08:31 99 Nasal Cannula 3.00 10/06/16 08:00 97.8 82 27 110/65 100 10/06/16 08:00 100 Nasal Cannula 3.00 10/06/16 08:00 82 10/06/16 06:00 66 10/06/16 04:49 97 35 10/06/16 04:00 99 Bi-Pap 45 10/06/16 04:00 75 10/06/16 04:00 98.7 75 14 122/57 99 10/06/16 02:00 75 10/06/16 00:00 98.9 74 17 107/52 100 10/06/16 00:00 74 10/06/16 00:00 100 Bi-Pap 45 10/05/16 23:49 97 35 10/05/16 22:00 91 10/05/16 21:03 100 35 10/05/16 20:13 96 Nasal Cannula 3.00 10/05/16 20:00 98.5 94 18 108/52 96 10/05/16 20:00 96 Nasal Cannula 4.00 10/05/16 20:00 94 10/05/16 18:00 97 I/O 10/05/16 10/05/16 10/05/16 10/06/16 10/06/16 10/06/16 07:00 15:00 23:00 07:00 15:00 23:00 Intake Total 280 ml 290 ml 626 ml 492 ml 913 ml Output Total 125 ml 225 ml 250 ml 250 ml 350 ml Balance 155 ml 65 ml 376 ml 242 ml 563 ml Intake Oral 20 ml 100 ml 50 ml 50 ml 555 ml IV Total 260 ml 190 ml 576 ml 442 ml 358 ml Output Urine Total 125 ml 225 ml 250 ml 250 ml 350 ml # Bowel Movements 1 2 Result Diagram: 10/06/16 0516 10/06/16 0516 Imaging Last Impressions Chest X-Ray 10/05/16 0600 Signed Impressions: Service Date/Time: Wednesday, October 05, 2016 03:41 - CONCLUSION: Worsening bibasilar infiltrates. Claudio Reaves Jr., MD Objective Remarks awake and alert NAD anicteric lungs decreased breath sounds, no rales regular rhythm abdomen soft, good bowel sounds extremities no edema neuro exam non focal edwards in place Urinary Catheter: Yes Edwards insert reason: Prolonged Immobilization Date of Insertion: Oct 05, 2016 A/P Assessment and Plan 81-year-old female presenting with shortness of breath, generalized body aches hypoxemia Acute hypercarbic respiratory failure secondary with underlying restrictive lung disease due to obesity- MS improved now BiPAP at hs Nebulization every 6 scheduled and every [address] Lou ff 10/04 - d/w - -agrees to intubation if needed- Acute Influenza type A Worsening Infiltrates - possibly viral with above Staph epi in culture- likely contaminant Recently treated for community-acquired pneumonia- completed course of antibiotics adn was DC to SNF 09/13 t down on zosyn and Azithromax on Tamiflu 75 mg by mouth twice a day Paroxysmal Atrial fibrillation - was in SR past few days went into RVR again today 10/06 reversed with Cardizem 10 mg IV x 1 History of hypertension, CHF component- Continue on lisinopril 40 mg daily. Increase Lopressor 75 mg twice a day continue Cardizem CD 300 mg daily. Eliquis 2.5 mg twice a day, atorvastatin 20 mg at bedtime 2D echo 55-60% History of hypothyroidism continue Synthroid 125 g daily Type 2 diabetes insulin-requiring. DM neuropathy check blood sugars 3 times a day and at bedtime with sliding coverage. 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
[2016-10-06] MEDS ORDERED: PILL SPLITTER OTHER PRN (16:45)
[2016-10-06] MEDS: SODIUM CHLOR 0.9% 1000 ML INJ 1,000 ML IV SCH (16:56)
--- NOTE | 2016-10-06 18:21 | HHI.PR ---
Subjective Remarks RESPIRATORY FAILURE, HYPOXIC AND HYPERCARBIC OBESITY HYPOVENTILATION PULMONARY HTN Objective Vital Signs Date Time Temp Pulse Resp B/P Pulse Ox O2 Delivery O2 Flow Rate FiO2 10/06/16 16:00 100 Nasal Cannula 2.00 10/06/16 16:00 98.0 80 21 117/53 100 10/06/16 16:00 80 10/06/16 14:00 135 10/06/16 12:00 100 Nasal Cannula 2.00 10/06/16 12:00 130 10/06/16 12:00 98.1 130 18 115/74 100 10/06/16 10:00 133 10/06/16 08:31 99 Nasal Cannula 3.00 10/06/16 08:00 97.8 82 27 110/65 100 10/06/16 08:00 100 Nasal Cannula 3.00 10/06/16 08:00 82 10/06/16 06:00 66 10/06/16 04:49 97 35 10/06/16 04:00 99 Bi-Pap 45 10/06/16 04:00 75 10/06/16 04:00 98.7 75 14 122/57 99 10/06/16 02:00 75 10/06/16 00:00 98.9 74 17 107/52 100 10/06/16 00:00 74 10/06/16 00:00 100 Bi-Pap 45 10/05/16 23:49 97 35 10/05/16 22:00 91 10/05/16 21:03 100 35 10/05/16 20:13 96 Nasal Cannula 3.00 10/05/16 20:00 98.5 94 18 108/52 96 10/05/16 20:00 96 Nasal Cannula 4.00 10/05/16 20:00 94 I/O 10/05/16 10/05/16 10/05/16 10/06/16 10/06/16 10/06/16 07:00 15:00 23:00 07:00 15:00 23:00 Intake Total 280 ml 290 ml 626 ml 492 ml 913 ml Output Total 125 ml 225 ml 250 ml 250 ml 350 ml Balance 155 ml 65 ml 376 ml 242 ml 563 ml Intake Oral 20 ml 100 ml 50 ml 50 ml 555 ml IV Total 260 ml 190 ml 576 ml 442 ml 358 ml Output Urine Total 125 ml 225 ml 250 ml 250 ml 350 ml # Bowel Movements 1 2 Result Diagram: 10/06/16 0516 10/06/16 0516 Objective Remarks GENERAL: SKIN: Warm and dry. HEAD: Atraumatic. Normocephalic. EYES: Pupils equal and round. No scleral icterus. No injection or drainage. ENT: No nasal bleeding or discharge. Mucous membranes pink and moist. NECK: Trachea midline. No JVD. CARDIOVASCULAR: Regular rate and rhythm. RESPIRATORY: No accessory muscle use. Clear to auscultation. Breath sounds equal bilaterally. GASTROINTESTINAL: Abdomen soft, non-tender, nondistended. Hepatic and splenic margins not palpable. MUSCULOSKELETAL: Extremities without clubbing, cyanosis, or edema. No obvious deformities. NEUROLOGICAL: Awake and alert. No obvious cranial nerve deficits. Motor grossly within normal limits. Five out of 5 muscle strength in the arms and legs. Normal speech. PSYCHIATRIC: Appropriate mood and affect; insight and judgment normal. Assessment and Plan Assessment and Plan RESPIRATORY FAILURE OBESITY HYPOVENTILATION MORBID OBESITY PULMONARY HTN PLAN O2 NEEDED CHECK ABG , PFT , TSH. LOOSE WT. BIPAP WHILE SLEEPING AND TOLERATED WHEN AWAKE Dasha Lou MD Oct 06, 2016 18:20
--- NOTE | 2016-10-06 19:28 | RADRPT ---
EXAM DATE/TIME: 10/06/2016 18:35 [facility] COMPARISON: CHEST SINGLE AP, October 05, 2016, 3:41. INDICATIONS : Shortness of breath. MEDICAL HISTORY : Venous insufficiency. Hypercholesterolemia. Diabetes mellitus type II.Hypertension. A-fib. SURGICAL HISTORY : None. ENCOUNTER: Subsequent ACUITY: 1 week PAIN SCORE: 0/10 LOCATION: Bilateral chest FINDINGS: There is slight cardiomegaly and perivascular pulmonary edema. Focal consolidation is not seen. CONCLUSION: Slight CHF.. K. Walt Romano MD on October 06, 2016 at 19:26 Board Certified Radiologist. This report was verified electronically.
[2016-10-06] MEDS ORDERED: methylPREDNISolone SOD SUCC 125 MG/2 ML VIAL IV PUSH SCH (21:00)
[2016-10-06] MEDS: ATORVASTATIN 20 MG TAB PO SCH (21:28)
[2016-10-07] VITALS (8 sets, daily range): BP systolic 121–150; BP diastolic 63–76; PULSE 73–79; RESP 13–20; TEMP 96.8–98; O2SAT 94–97
[2016-10-07] MEDS: RESP: ALBUTEROL 2.5 MG/IPRATROPIUM 0.5 MG NEB (SCH) INH ×4 (04:00→19:37)
[2016-10-07] MEDS: CHLORHEXIDINE GLUCONATE 2 % 1 PACK (2 CLOTHS)(taper/protocol) TOPICAL SCH (04:00)
[2016-10-07] MEDS: PIPERACIL-TAZO 2.25 GM PREMIX 50 ML IV SCH ×2 (05:21→10:10)
[2016-10-07 05:30] LABS: MEAN CELL VOLUME 93.6 FL (80.0-100.0); MEAN CORPUSCULAR HEMOGLOBIN 29.8 PG (27.0-34.0); MEAN CORPUSCULAR HGB CONC 31.8 % (32.0-36.0); PLATELET COUNT 175 TH/MM3 (150-450); RED BLOOD COUNT 2.67 MIL/MM3 (4.00-5.30); RED CELL DISTRIBUTION WIDTH 16.4 % (11.6-17.2); REVIEW FLAG FINAL; WHITE BLOOD COUNT 7.3 TH/MM3 (4.0-11.0)
[2016-10-07 05:49] LABS: BICARBONATE 30.4 MEQ/L (21.0-32.0); POTASSIUM 3.9 MEQ/L (3.5-5.1)
[2016-10-07] MEDS: LEVOTHYROXINE SODIUM 125 MCG TAB PO SCH (06:00)
[2016-10-07] MEDS: INSULIN NovoLIN REGULAR SUPPLEMENTAL SCALE SQ SCH ×5 (06:50→22:13)
--- NOTE | 2016-10-07 08:36 | HHI.PR ---
Subjective Remarks awake and alert, up on chair, very interactive had a good BM this am no shortness of breath, no cough "trying to lose this weight but the fat is hanging in there" in SR no further episodes of tachycardia Objective Vitals Vital Signs Date Time Temp Pulse Resp B/P Pulse Ox O2 Delivery O2 Flow Rate FiO2 10/07/16 01:00 96.9 77 20 146/63 96 10/06/16 23:30 96 Nasal Cannula 3.00 10/06/16 22:00 80 10/06/16 20:47 100 35 10/06/16 20:00 100 Nasal Cannula 2.00 10/06/16 20:00 81 10/06/16 20:00 98.3 81 22 118/65 100 10/06/16 19:40 100 Nasal Cannula 3.00 10/06/16 18:00 81 10/06/16 16:00 100 Nasal Cannula 2.00 10/06/16 16:00 98.0 80 21 117/53 100 10/06/16 16:00 80 10/06/16 14:00 135 10/06/16 12:00 100 Nasal Cannula 2.00 10/06/16 12:00 130 10/06/16 12:00 98.1 130 18 115/74 100 10/06/16 10:00 133 10/06/16 08:31 99 Nasal Cannula 3.00 I/O 10/06/16 10/06/16 10/06/16 10/07/16 10/07/16 10/07/16 07:00 15:00 23:00 07:00 15:00 23:00 Intake Total 492 ml 913 ml 735 ml 322 ml Output Total 250 ml 350 ml 250 ml 400 ml Balance 242 ml 563 ml 485 ml -78 ml Intake Oral 50 ml 555 ml 100 ml 120 ml IV Total 442 ml 358 ml 635 ml 202 ml Output Urine Total 250 ml 350 ml 250 ml 400 ml # Bowel Movements 2 0 Result Diagram: 10/07/16 0425 10/07/16 0425 Imaging Last Impressions Chest X-Ray 10/06/16 0000 Signed Impressions: Service Date/Time: October 18:35 - CONCLUSION: Slight CHF.. K. Walt Romano MD Objective Remarks awake and alert NAD anicteric lungs decreased breath sounds, no rales regular rhythm abdomen soft, good bowel sounds extremities no edema neuro exam non focal edwards in place Urinary Catheter: Yes Assessment to: Remove Edwards insert reason: Measure Accurate Output Date of Insertion: Oct 05, 2016 Date of Removal: Oct 07, 2016 A/P Assessment and Plan 81-year-old female presenting with shortness of breath, generalized body aches hypoxemia Acute hypercarbic respiratory failure secondary with underlying restrictive lung disease due to obesity- MS improved now BiPAP at hs Nebulization every 6 scheduled and every [address] Lou ff- DC if cleared and ff in his office for sleep studies - and he can get her a BiPAP machine as OP 10/04 - d/w - -agrees to intubation if needed- will need a walk test prior to DC to qualify for home - d/w CM change to po Prednisone 20 mg bid Acute Influenza type A Staph epi in culture- likely contaminant Recently treated for community-acquired pneumonia- completed course of antibiotics and was DC to SNF 09/13 On IV zosyn and Azithromax per ID on Tamiflu 75 mg by mouth twice a day ID ff- Dr. Dias ff Paroxysmal Atrial fibrillation - RVR 4/ reversed with Cardizem 10 mg IV x 1- back in SR- rate controlled History of hypertension, Continue on lisinopril 40 mg daily. Lopressor 75 mg twice a day continue Cardizem CD 300 mg daily. Eliquis 2.5 mg twice a day, atorvastatin 20 mg at bedtime 2D echo 55-60% History of hypothyroidism continue Synthroid 125 g daily Acute on Chronic kidney insufficiency stage III likely from diabetic nephropathy Mild hyponatremia- Na 132 Nephrology ff -Dr. Grewal ff- creatinine stabilizing non oliguric continue on vitamin D 400 units twice a day, calcitriol 0.25 mg daily ff BMP Type 2 diabetes insulin-requiring. - elevated with steroids- nown on Prednisone taper insulin sliding scale tid and hs restart her Lantus at 8 units hs ff BS ( home dose on 19-22 units) DM neuropathy check blood sugars 3 times a day and at bedtime with sliding coverage. DM neuropathy Continue gabapentin DVT prophylaxis- patient on eliquis PT consult- out of bed CM conuslt for DC planning- home with Home health care nursing/PT Lata Dahl MD Oct 07, 2016 08:36
--- NOTE | 2016-10-07 08:46 | HHI.PR ---
Subjective Remarks RESPIRATORY FAILURE, HYPOXIC AND HYPERCARBIC OBESITY HYPOVENTILATION PULMONARY HTN episode of afib yesterday Objective Vital Signs Date Time Temp Pulse Resp B/P Pulse Ox O2 Delivery O2 Flow Rate FiO2 10/07/16 01:00 96.9 77 20 146/63 96 10/06/16 23:30 96 Nasal Cannula 3.00 10/06/16 22:00 80 10/06/16 20:47 100 35 10/06/16 20:00 100 Nasal Cannula 2.00 10/06/16 20:00 81 10/06/16 20:00 98.3 81 22 118/65 100 10/06/16 19:40 100 Nasal Cannula 3.00 10/06/16 18:00 81 10/06/16 16:00 100 Nasal Cannula 2.00 10/06/16 16:00 98.0 80 21 117/53 100 10/06/16 16:00 80 10/06/16 14:00 135 10/06/16 12:00 100 Nasal Cannula 2.00 10/06/16 12:00 130 10/06/16 12:00 98.1 130 18 115/74 100 10/06/16 10:00 133 I/O 10/06/16 10/06/16 10/06/16 10/07/16 10/07/16 10/07/16 07:00 15:00 23:00 07:00 15:00 23:00 Intake Total 492 ml 913 ml 735 ml 322 ml Output Total 250 ml 350 ml 250 ml 400 ml Balance 242 ml 563 ml 485 ml -78 ml Intake Oral 50 ml 555 ml 100 ml 120 ml IV Total 442 ml 358 ml 635 ml 202 ml Output Urine Total 250 ml 350 ml 250 ml 400 ml # Bowel Movements 2 0 Result Diagram: 10/07/16 0425 10/07/16 0425 Objective Remarks GENERAL: SKIN: Warm and dry. HEAD: Atraumatic. Normocephalic. EYES: Pupils equal and round. No scleral icterus. No injection or drainage. ENT: No nasal bleeding or discharge. Mucous membranes pink and moist. NECK: Trachea midline. No JVD. CARDIOVASCULAR: Regular rate and rhythm. RESPIRATORY: No accessory muscle use. Clear to auscultation. Breath sounds equal bilaterally. GASTROINTESTINAL: Abdomen soft, non-tender, nondistended. Hepatic and splenic margins not palpable. MUSCULOSKELETAL: Extremities without clubbing, cyanosis, or edema. No obvious deformities. NEUROLOGICAL: Awake and alert. No obvious cranial nerve deficits. Motor grossly within normal limits. Five out of 5 muscle strength in the arms and legs. Normal speech. PSYCHIATRIC: Appropriate mood and affect; insight and judgment normal. Assessment and Plan Assessment and Plan RESPIRATORY FAILURE OBESITY HYPOVENTILATION MORBID OBESITY PULMONARY HTN PLAN O2 NEEDED CHECK ABG , PFT , TSH. LOOSE WT. BIPAP WHILE SLEEPING AND TOLERATED WHEN AWAKE NPSG POST D/C Dasha Lou MD Oct 07, 2016 08:46
[2016-10-07] MEDS: LISINOPRIL 20 MG TAB PO SCH (09:58)
[2016-10-07] MEDS: DILTIAZEM-CD 300 MG CAP ER PO SCH (09:58)
[2016-10-07] MEDS: CHOLECALCIFEROL (VIT D3) 400 UNIT TAB PO SCH ×2 (09:58→22:07)
[2016-10-07] MEDS: PANTOPRAZOLE SOD 20 MG DELAYED RELEASE TAB PO SCH ×2 (09:58→22:07)
[2016-10-07] MEDS: MULTIVITAMINS/MINERALS THERAPEUTIC TAB PO SCH ×2 (09:58→22:07)
[2016-10-07] MEDS: APIXABAN 2.5 MG TABLET PO SCH ×2 (09:59→22:08)
[2016-10-07] MEDS: CALCITRIOL 0.25 MCG CAP PO SCH (09:59)
[2016-10-07] MEDS: METOPROLOL TARTRATE 50 MG TAB PO SCH ×2 (09:59→22:07)
[2016-10-07] MEDS: predniSONE 10 MG TAB PO SCH (10:10)
--- NOTE | 2016-10-07 11:01 | HHI.FF ---
Face to Face Verification Diagnosis: (1) Atrial fibrillation with rapid ventricular response (2) Acute hypoxemic respiratory failure (3) Atrial fibrillation Physical Therapy Order: Evaluate and Treat, Improve ambulation, Strength and gait training Occupational Therapy Order: Evaluate and Treat, Gross motor coordination Speech Therapy Order: To Improve: Cognitive skills Home Health Nursing Order: Medical education Signs/symptoms of disease process Oxygen administration education Medication education-adverse effect Home Health Aide Order: To Assist In: oil heater operator and meal prep Hot Punch Press Operator Order: To Evaluate: Living conditions/environment, Support services Order: To Provide: Long range planning I have seen patient Feli Sales on 10/07/16. My clinical findings support the need for the requested home health care services because: Ltd mobility - disease progression Patient has SOB Deconditioned w/ increased weakness Limited ability to care for self Need for psychosocial assistance High risk of falls I certify that my clinical findings support that this patient is homebound because: Hx COPD- exertion dyspnea/weakness Need for psychosocial assistance Lata Dahl MD Oct 07, 2016 11:01
[2016-10-07] MEDS ORDERED: TOLVAPTAN 15 MG TAB PO ONE (11:15)
--- NOTE | 2016-10-07 11:16 | HHI.NPPN ---
Subjective History of Present Illness 81 year old with Flu, Pneumonia ARF/CKD Objective Data Data 10/06/16 10/07/16 19:00 07:00 Intake Total 913 ml 1057 ml Output Total 350 ml 650 ml Balance 563 ml 407 ml Intake Oral 555 ml 220 ml IV Total 358 ml 837 ml Output Urine Total 350 ml 650 ml # Bowel Movements 2 0 Vital Signs Date Time Temp Pulse Resp B/P Pulse Ox O2 Delivery O2 Flow Rate FiO2 10/07/16 10:45 3.00 10/07/16 08:00 98.0 79 16 121/71 95 10/07/16 01:00 96.9 77 20 146/63 96 10/06/16 23:30 96 Nasal Cannula 3.00 10/06/16 22:00 80 10/06/16 20:47 100 35 10/06/16 20:00 100 Nasal Cannula 2.00 10/06/16 20:00 81 10/06/16 20:00 98.3 81 22 118/65 100 10/06/16 19:40 100 Nasal Cannula 3.00 10/06/16 18:00 81 10/06/16 16:00 100 Nasal Cannula 2.00 10/06/16 16:00 98.0 80 21 117/53 100 10/06/16 16:00 80 10/06/16 14:00 135 10/06/16 12:00 100 Nasal Cannula 2.00 10/06/16 12:00 130 10/06/16 12:00 98.1 130 18 115/74 100 -: 10/07/16 0425 10/07/16 0425 Physical Exam General Appearance: Well Developed, Well Nourished Neck Neck Exam: Neck Supple Pulmonary Resp Exam: Decreased Bases Cardiology CV Exam: Regular Gastrointestinal/Abdomen GI Exam: Soft, Non-Tender, Bowel Sounds Present Integumentary Skin Exam: Clear Extremeties Extremities Exam: No Edema Assessment/Plan Problem List: (1) Acute on chronic renal insufficiency Plan: patient has CKD with ARF due to underlying infection Cr 2.8 UOP 1 L dc IVF give Tolvaptan for Na 132 start Lasix 40 mg by tomorrow monitor BMP (2) Hyperkalemia Plan: Kayexalate ordered (3) Influenza A Plan: on Tamiflu (4) Pulmonary infiltrates Plan: due to infection (5) Hypertension (6) Pneumonia Plan: on Zosyn/Zithromax (7) Diabetes Plan: follow BG Problem Qualifiers (1) Hypertension: Qualified Code: I10 - Essential hypertension Tonja Grewal MD Oct 07, 2016 11:16
--- NOTE | 2016-10-07 15:24 | HHI.IDPN ---
Note Infectious Disease Note Chart review documentation: Afebrile WBC normal CXR: CHF like pic. Still on O2 3L NC Recs: To reduce fluid burden will change regimen to oral. DC Zosyn IV DC Azithro IV Start Oral Levaquin (stop date: 10/13/16) Continue oral Tamiflu (stop date: (10/10/16) Follow clinically If continues to do well and ready for DC follow stop dates as above for DC planning. Will follow prn. Vital Signs Date Time Temp Pulse Resp B/P Pulse Ox O2 Delivery O2 Flow Rate FiO2 10/07/16 12:00 96.9 78 13 138/66 95 10/07/16 11:17 97 Nasal Cannula 3.00 10/07/16 10:45 3.00 10/07/16 08:30 92 3.00 10/07/16 08:00 98.0 79 16 121/71 95 10/07/16 01:00 96.9 77 20 146/63 96 10/06/16 23:30 96 Nasal Cannula 3.00 10/06/16 22:00 80 10/06/16 20:47 100 35 10/06/16 20:00 100 Nasal Cannula 2.00 10/06/16 20:00 81 10/06/16 20:00 98.3 81 22 118/65 100 10/06/16 19:40 100 Nasal Cannula 3.00 10/06/16 18:00 81 10/06/16 16:00 100 Nasal Cannula 2.00 10/06/16 16:00 98.0 80 21 117/53 100 10/06/16 16:00 80 Laboratory Tests Test 10/07/16 04:25 White Blood Count 7.3 TH/MM3 Red Blood Count 2.67 MIL/MM3 Hemoglobin 8.0 GM/DL Hematocrit 25.0 % Mean Corpuscular Volume 93.6 FL Mean Corpuscular Hemoglobin 29.8 PG Mean Corpuscular Hemoglobin 31.8 % Concent Red Cell Distribution Width 16.4 % Platelet Count 175 TH/MM3 Mean Platelet Volume 8.4 FL Sodium Level 132 MEQ/L Potassium Level 3.9 MEQ/L Chloride Level 93 MEQ/L Carbon Dioxide Level 30.4 MEQ/L Anion Gap 9 MEQ/L Blood Urea Nitrogen 52 MG/DL Creatinine 2.80 MG/DL Estimat Glomerular Filtration 20 ML/MIN Rate Random Glucose 331 MG/DL Calcium Level 8.4 MG/DL Brigitte Dias MD Oct 07, 2016 15:24
[2016-10-07] MEDS ORDERED: OXYGENTANK NAS.CANULA (15:53)
[2016-10-07] MEDS: OSELTAMIVIR PHOSPHATE 75 MG CAP PO SCH ×2 (16:52→22:07)
[2016-10-07] MEDS ORDERED: INSULIN DETEMIR 100 UNITS/ML VIAL SQ SCH (21:00)
[2016-10-07] MEDS: ATORVASTATIN 20 MG TAB PO SCH (22:07)
[2016-10-08] VITALS: BP 168/75; PULSE 71; RESP 20; TEMP 96.2; O2SAT 95
[2016-10-08 04:00] VITALS: BP 147/72; PULSE 69; RESP 18; TEMP 96.2; O2SAT 95
[2016-10-08] MEDS: CHLORHEXIDINE GLUCONATE 2 % 1 PACK (2 CLOTHS)(taper/protocol) TOPICAL SCH (04:00)
[2016-10-08] MEDS: RESP: ALBUTEROL 2.5 MG/IPRATROPIUM 0.5 MG NEB (SCH) INH ×2 (04:07→07:47)
[2016-10-08] MEDS: LEVOTHYROXINE SODIUM 125 MCG TAB PO SCH (06:08)
[2016-10-08] MEDS: INSULIN NovoLIN REGULAR SUPPLEMENTAL SCALE SQ SCH ×2 (06:08→11:50)
[2016-10-08 07:48] VITALS: O2SAT 95
[2016-10-08] MEDS: PANTOPRAZOLE SOD 20 MG DELAYED RELEASE TAB PO SCH (07:58)
[2016-10-08] MEDS: CHOLECALCIFEROL (VIT D3) 400 UNIT TAB PO SCH (07:58)
[2016-10-08] MEDS: CALCITRIOL 0.25 MCG CAP PO SCH (07:58)
[2016-10-08] MEDS: APIXABAN 2.5 MG TABLET PO SCH (07:58)
[2016-10-08] MEDS: METOPROLOL TARTRATE 50 MG TAB PO SCH (07:59)
[2016-10-08] MEDS: DILTIAZEM-CD 300 MG CAP ER PO SCH (07:59)
[2016-10-08] MEDS: OSELTAMIVIR PHOSPHATE 75 MG CAP PO SCH (07:59)
[2016-10-08] MEDS: predniSONE 10 MG TAB PO SCH (07:59)
[2016-10-08] MEDS: MULTIVITAMINS/MINERALS THERAPEUTIC TAB PO SCH (07:59)
[2016-10-08 08:00] VITALS: BP 179/80; PULSE 81; RESP 18; TEMP 95.4; O2SAT 100
[2016-10-08] MEDS: LISINOPRIL 20 MG TAB PO SCH (08:00)
[2016-10-08] MEDS ORDERED: LEVOFLOXACIN 250 MG TAB PO SCH (09:00)
[2016-10-08] MEDS ORDERED: FUROSEMIDE 40 MG TAB PO SCH (09:00)
[2016-10-08] MEDS ORDERED: FURO40TA PO (10:05)
[2016-10-08] MEDS ORDERED: METO-309 PO (10:05)
[2016-10-08] MEDS ORDERED: PRED10PA PO (10:05)
[2016-10-08 10:22] LABS: HEMATOCRIT 27.1 % (35.0-46.0); MEAN CELL VOLUME 93.8 FL (80.0-100.0); MEAN CORPUSCULAR HEMOGLOBIN 30.1 PG (27.0-34.0); MEAN CORPUSCULAR HGB CONC 32.1 % (32.0-36.0); PLATELET COUNT 205 TH/MM3 (150-450); RED BLOOD COUNT 2.89 MIL/MM3 (4.00-5.30); RED CELL DISTRIBUTION WIDTH 16.3 % (11.6-17.2); REVIEW FLAG FINAL; WHITE BLOOD COUNT 7.4 TH/MM3 (4.0-11.0)
[2016-10-08 10:39] LABS: BICARBONATE 32.8 MEQ/L (21.0-32.0); POTASSIUM 3.9 MEQ/L (3.5-5.1)
[2016-10-08 12:00] VITALS: BP 170/77; PULSE 74; RESP 17; TEMP 98; O2SAT 92
--- NOTE | 2016-10-08 13:28 | HHI.NPPN ---
Subjective History of Present Illness 81 year old with Flu, Pneumonia ARF/CKD Additional Remarks No acute complaints Objective Data Data 10/07/16 10/08/16 19:00 07:00 Intake Total 480 ml 640 ml Output Total 850 ml 1950 ml Balance -370 ml -1310 ml Intake Oral 480 ml 640 ml Output Urine Total 850 ml 1950 ml # Bowel Movements 2 0 Vital Signs Date Time Temp Pulse Resp B/P Pulse Ox O2 Delivery O2 Flow Rate FiO2 10/08/16 12:00 98.0 74 17 170/77 92 10/08/16 08:00 95.4 81 18 179/80 100 10/08/16 07:48 95 Nasal Cannula 3.00 10/08/16 04:00 96.2 69 18 147/72 95 10/08/16 00:00 96.2 71 20 168/75 95 10/07/16 20:45 3.00 10/07/16 20:00 96.8 78 18 150/76 94 10/07/16 19:38 95 Nasal Cannula 3.00 10/07/16 16:00 96.8 73 13 142/67 94 10/07/16 15:29 95 Nasal Cannula 3.00 -: 10/08/16 0956 10/08/16 0956 Physical Exam General Appearance: Well Developed, Well Nourished Neck Neck Exam: Neck Supple Pulmonary Resp Exam: Decreased Bases Cardiology CV Exam: Regular Gastrointestinal/Abdomen GI Exam: Soft, Non-Tender, Bowel Sounds Present Integumentary Skin Exam: Clear Extremeties Extremities Exam: No Edema Assessment/Plan Problem List: (1) Acute on chronic renal insufficiency Plan: patient has CKD with ARF due to underlying infection Creatinine improving On lasix 40mg PO daily, good UOP. Continue for now Given tolvaptan yesterday for hyponatremia - improved today. (2) Hyperkalemia Plan: Improved (3) Influenza A Plan: on Tamiflu (4) Pulmonary infiltrates Plan: due to infection (5) Hypertension (6) Pneumonia Plan: on Zosyn/Zithromax (7) Diabetes Plan: follow BG Problem Qualifiers (1) Hypertension: Qualified Code: I10 - Essential hypertension Serge Cisneros MD Oct 08, 2016 13:28
--- NOTE | 2016-10-08 15:02 | HHI.DS ---
Discharge Summary Admission Date Oct 02, 2016 at 12:20 Discharge Date: Oct 08, 2016 Admitting Diagnosis respiratory failure (1) Respiratory distress ICD Code: R06.00 Diagnosis: Principal (2) Acute hypoxemic respiratory failure ICD Code: J96.01 Diagnosis: Principal (3) Acute respiratory failure ICD Code: J96.00 Diagnosis: Principal Procedures NA Brief History - From Admission Patient is an 81-year-old female with known history of hypertension, atrial fibrillation, hypothyroidism, who was recently admitted here in August 2016 due to acute respiratory failure at that time was noted to have pneumonia. Patient was discharged on by mouth Levaquin to a nearby skilled rehabilitation facility where she stayed for 7-10 days. Patient was doing well until this morning patient started feeling short of breath. The patient denies any fever though the patient had some dry cough. states baseline sleeps with 3 pillow. He she denies any leg swelling. Patient activity baseline limited by her weight. She gets around with a cane slowly and for longer walks with a walker. She also complained of generalized body aches. Came to the emergency room where on evaluation was positive for influenza A. She was also noted to be hypoxemic with requiring 5-6 L nasal cannula. Patient admitted for further evaluation and management. CBC/BMP: 10/08/16 0956 10/08/16 0956 Significant Findings Laboratory Tests Test 10/06/16 10/07/16 10/08/16 05:16 04:25 09:56 Red Blood Count 2.44 MIL/MM3 2.67 MIL/MM3 2.89 MIL/MM3 (4.00-5.30) (4.00-5.30) (4.00-5.30) Hemoglobin 7.3 GM/DL 8.0 GM/DL 8.7 GM/DL (11.6-15.3) (11.6-15.3) (11.6-15.3) Hematocrit 22.7 % 25.0 % 27.1 % (35.0-46.0) (35.0-46.0) (35.0-46.0) Sodium Level 135 MEQ/L 132 MEQ/L (136-145) (136-145) Chloride Level 95 MEQ/L 93 MEQ/L (98-107) (98-107) Blood Urea Nitrogen 48 MG/DL (7-18) 52 MG/DL (7-18) 43 MG/DL (7-18) Creatinine 2.83 MG/DL 2.80 MG/DL 2.53 MG/DL (0.50-1.00) (0.50-1.00) (0.50-1.00) Estimat Glomerular Filtration 19 ML/MIN (>89) 20 ML/MIN (>89) 22 ML/MIN (>89) Rate Random Glucose 277 MG/DL 331 MG/DL 260 MG/DL (74-106) (74-106) (74-106) Parathyroid Hormone (Intact) 165.8 PG/ML (12.4-76.8) Mean Corpuscular Hemoglobin 31.8 % Concent (32.0-36.0) Calcium Level 8.4 MG/DL (8.5-10.1) Carbon Dioxide Level 32.8 MEQ/L (21.0-32.0) PE at Discharge awake and alert NAD anicteric lungs decreased breath sounds, no rales regular rhythm abdomen soft, good bowel sounds extremities no edema neuro exam non focal edwards in place Pt update on day of discharge Improving. Discharge on home O2 requested by patient. Hospital Course Mrs. Sales is an 81 year old female. She is here on day of admit with hypoxia and respiratory distress. She was found to be influenza positive. She has improved with oxygen therapy, but has not been able to wean off the oxygen. She is obese and likely has chronic restrictive lung disease related to her obesity with suspected undiagnosed chronic hypoxia. She looks comfortable and can ambulate, but remains hypoxic on rest and with ambulation. She saturates in the 90's on 3L/min of oxygen. The patient has requested discharge and qualifies for home O2 at this point. She is to have a sleep study and further work up of her lungs with Dr. Castañeda as an outpatient. Medically cleared for discharge to home today. Pt Condition on Discharge: Stable Discharge Disposition: Disch w/ Home Health Serv Discharge Time: > 30 minutes Discharge Instructions DIET: Follow Instructions for: Heart Healthy Diet, Diabetic Diet Activities you can perform: Regular-No Restrictions Follow up Referrals: PCP Follow-up - 1 Week with Duncan Alba MD Pulmonology - 1 Week with Dasha Lou MD New Medications: Oxygen tank (Oxygen tank) 1 Ea Tank 2 LITER IGLESIA.CANULA CONTINUOUS Oxygen Concentrator Portable Gaseous 2 L/min via Nasal Cannula Continuous For 99 months HYPOXEMIA PREVENTION #1 CYLINDER Prednisone (21) 10 mg tab Dose Pack (Prednisone (21) 10 mg tab Dose Pack) 10 Mg Pack 10 MG PO DIRECTED Inflammation #1 Ref 0 DSPK Furosemide (Furosemide) 40 Mg Tab 40 MG PO DAILY fluid overload #30 TAB Metoprolol Tartrate (Lopressor) 50 Mg Tab 75 MG PO BID Blood Pressure Management #60 TAB Continued Medications: Apixaban (Eliquis) 2.5 Mg Tab 2.5 MG PO BID Blood Clot Prevention Ref 0 TAB Atorvastatin (Atorvastatin) 20 Mg Tab 20 MG PO HS Cholesterol Management #30 Ref 0 TAB Calcitriol (Calcitriol) 0.25 Mcg Cap 0.25 MCG PO DAILY Calcium Supplement #30 Ref 0 CAP Cholecalciferol (Vitamin D) 400 Unit Cap 400 UNITS PO BID Diltiazem ER 24 HR (Diltiazem ER 24 HR) 300 Mg Lexy 300 MG PO DAILY #30 Ref 0 TAB Gabapentin (Gabapentin) 100 Mg Cap 100 MG PO BID #60 Ref 0 CAP Insulin Glargine Inj (Lantus Solostar Pen Inj) 300 Unit/3 Ml Pen 22 UNITS SQ HS Blood Sugar Management Ref 0 PEN Levothyroxine (Levothyroxine) 125 Mcg Tab 125 MCG PO DAILY Thyroid #30 Ref 0 TAB Lisinopril (Lisinopril) 40 Mg Tab 40 MG PO DAILY Blood Pressure Management #30 Ref 0 TAB Multiple Vitamins W/ Minerals (Multivitamin Gummies Adul) 1 Chw Chw 1 CHEW PO BID Omeprazole (Omeprazole) 20 Mg Tab 20 MG PO BID #30 Ref 0 TAB Discontinued Medications: Metoprolol Tartrate (Metoprolol Tartrate) 50 Mg Tab 50 MG PO BID #60 Ref 0 TAB Serge Nickerson MD Oct 08, 2016 15:02
== END 2016-10-08 13:40 | disposition home health service (06) | DRG 193 ==
LOC: NEPE 09:41 → NEDA 12:20 → HCIS 17:00 → HIMN 10-04 16:40 → N07B 10-07 00:41
PROVIDERS: ADMIT Hospitalist; ATTEND Hospitalist
PROC: 0T9B70Z Drainage of Bladder with Drainage Device, Via Natural or Artificial Opening (ICD-10-PCS; principal; 2016-10-02)
PROC: 5A09457 Assistance with Respiratory Ventilation, 24-96 Consecutive Hours, Continuous Positive Airway Pressure (ICD-10-PCS; 2016-10-04)
DX: J10.08 Influenza due to other identified influenza virus with other specified pneumonia (principal); J96.01 Acute respiratory failure with hypoxia; G93.41 Metabolic encephalopathy; N18.4 Chronic kidney disease, stage 4 (severe); J96.02 Acute respiratory failure with hypercapnia; N17.9 Acute kidney failure, unspecified; I13.0 Hypertensive heart and chronic kidney disease with heart failure and stage 1 through stage 4 chronic kidney disease, or unspecified chronic kidney disease; J44.0 Chronic obstructive pulmonary disease with (acute) lower respiratory infection; I50.9 Heart failure, unspecified; I48.0 Paroxysmal atrial fibrillation; E66.2 Morbid (severe) obesity with alveolar hypoventilation; E87.1 Hypo-osmolality and hyponatremia; Z68.41 Body mass index [BMI] 40.0-44.9, adult; J15.9 Unspecified bacterial pneumonia; E11.21 Type 2 diabetes mellitus with diabetic nephropathy; E11.22 Type 2 diabetes mellitus with diabetic chronic kidney disease; E03.9 Hypothyroidism, unspecified; Z85.850 Personal history of malignant neoplasm of thyroid; E78.5 Hyperlipidemia, unspecified; E11.40 Type 2 diabetes mellitus with diabetic neuropathy, unspecified; E87.5 Hyperkalemia; B95.7 Other staphylococcus as the cause of diseases classified elsewhere; Z79.4 Long term (current) use of insulin; G47.33 Obstructive sleep apnea (adult) (pediatric); J45.909 Unspecified asthma, uncomplicated; M10.9 Gout, unspecified; M19.90 Unspecified osteoarthritis, unspecified site
CPT/HCPCS: 36600; 71010; 76937; 80048; 80053; 80202; 81001; 82550; 82805; 82948; 83605; 83690; 83735; 83880; 83970; 84100; 84443; 84484; 85025; 85027; 85610; 85730; 87040; 87186; 87205; 87641; 87804; 93005; 93306; 94002; 94003; 94150; 94620; 94640; 94664; 94667; 96365; 96375; J0456; J0696; J1940; J2543; J2930; J3370; J7030; J7050; J7512

== ENCOUNTER 2017-04-16 20:33 | Emergency (ER) | payer MEDICARE, OTHER ==
[~2017-04-16] VITALS: Ht 162.6 cm; Wt 97.0 kg
[~2017-04-16 20:33] MED LIST changes: +FURO40TA PO; -LEVA750T PO; +METO-309 PO; -METO-426 PO; +OXYGENTANK NAS.CANULA; +PRED10PA PO
[2017-04-16 20:36] VITALS: BP 199/78; PULSE 75; RESP 24; TEMP 98.5; O2SAT 91
[2017-04-16] MEDS ORDERED: METO50TA PO (21:15)
[2017-04-16 21:17] VITALS: BP 151/82; PULSE 64; TEMP 97.9; O2SAT 100
[2017-04-16] MEDS ORDERED: SODIUM CHLORIDE 0.9% FLUSH 10 ML FLUSH IVF PRN (21:45)
--- NOTE | 2017-04-16 21:45 | PD ---
HPI Chief Complaint: Respiratory Distress Time Seen by Provider: 21:19 Travel History International Travel<30 days: No Contact w/Intl Traveler<30days: No Traveled to known affect area: No History of Present Illness HPI The patient is an 82 year old female who presents to the [facility] emergency department with a history of shortness of breath with exertion that she reports is progressively gotten worse over the last week. She reports that today she was attempting to wash it became so dyspneic that she was having difficulty cleaning herself. She reports that she does chronically use oxygen at home. She reports that she is normally on 2 L nasal cannula O2, however today on her own she increase to 3 Liters. The patient reports that she does have a history of sleep apnea being diagnosed. She was given a CPAP machine, however she has been having difficulty using this as she reports it dries out her mouth. She reports that she has an appointment with Dr. Maldonado her marketing and development coordinator scheduled for tomorrow. Her primary care physician is at [facility]. The patient reports that she has had a dry cough over the last week. She reports that it is occasional. She also reports having a clear rhinorrhea. She denies having any fevers. She reports that she has had nasal congestion. She denies having any lower extremity edema, calf pain, or erythema. She denies using any nebulizer machine or inhalers at home. On Review of systems otherwise, the patient denies any neck pain, chest pain, abdominal pain, vomiting, diarrhea, urinary symptoms, or neurologic symptoms. PFS Past Medical History Narrative Medical The patient's past medical history is significant for hypertension, atrial fibrillation, diabetes mellitus, obesity, hypothyroid disorder, hyperlipidemia, diabetic neuropathy,, according to the record the patient was admitted to the hospital in August related to pneumonia and influenza. The patient was also thought to have an underlying restrictive lung disease related to her obesity. Hx Anticoagulant Therapy: Yes (ELIQUIS) Arthritis: Yes (RIGHT SHOULDER,HIP AND FOOT) Asthma: Yes Atrial Fibrillation: Yes Autoimmune Disease: Yes (GOUT RIGHT FOOT) Blood Disorders: No Anxiety: No Depression: No Heart Rhythm Problems: Yes (afib) Cancer: Yes (thyroid) Cardiovascular Problems: Yes (AFIB, HTN) High Cholesterol: Yes Chemotherapy: No Chest Pain: No Congestive Heart Failure: No COPD: No Cerebrovascular Accident: No Diabetes: Yes (TAKES INSULIN) Patient Takes Glucophage: No Diminished Hearing: No Endocrine: Yes Gastrointestinal Disorders: No GERD: No Glaucoma: No Gout: Yes Genitourinary: No Headaches: No Hepatitis: No Hiatal Hernia: No Hypertension: Yes Immune Disorder: No Implanted Vascular Access Dvce: No Kidney Stones: No Musculoskeletal: No Neurologic: No Psychiatric: No Reproductive: No Respiratory: Yes Myocardial Infarction: No Radiation Therapy: No Renal Failure: No Seizures: No Sickle Cell Disease: No Sleep Apnea: No Thyroid Disease: Yes Ulcer: No PNEUMOCCOCAL Vaccine (Year): 2 Menopausal: Yes : 5 Para: 2 Miscarriage: 1 Past Surgical History Narrative Surgical The patient's past surgical history is significant for a total thyroidectomy related to thyroid cancer, history of partial small bowel resection, cholecystectomy. Abdominal Surgery: Yes (cholecysectomy, colon resection) AICD: No Arteriovenous Shunt: No Cholecystectomy: Yes Endocrine Surgery: Yes (thyroid removal ) Eye Surgery: Yes (BILAT CATARACT) Insulin Pump: No Joint Replacement: No Neurologic Surgery: No Pacemaker: No Other Surgery: Yes (THYROIDECTOMY 2010) Social History Alcohol Use: Yes (OCCASIONALLY DRINKS WINE) Tobacco Use: No Substance Use: No Allergies-Medications (Allergen,Severity, Reaction): Coded Allergies: celecoxib (Unverified Allergy, Severe, SYNCOPE, 04/16/17) Reported Meds & Prescriptions Reported Meds & Active Scripts Active Oxygen tank (Oxygen) 1 Ea Tank 2 Liter IGLESIA.CANULA CONTINUOUS Oxygen Concentrator Portable Gaseous 2 L/min via Nasal Cannula Continuous For 99 months Reported Metoprolol Tartrate 50 Mg Tab 50 Mg PO BID Lantus Solostar Pen Inj (Insulin Glargine) 300 Unit/3 Ml Pen 22 Units SQ HS Vitamin D (Cholecalciferol) 400 Unit Cap 400 Units PO BID Multivitamin Gummies Adul (Multiple Vitamins W/ Minerals) 1 Chw Chw 1 Chew PO BID Eliquis (Apixaban) 2.5 Mg Tab 2.5 Mg PO BID Calcitriol 0.25 Mcg Cap 0.25 Mcg PO DAILY Omeprazole 20 Mg Tab 20 Mg PO BID Gabapentin 100 Mg Cap 100 Mg PO BID Lisinopril 40 Mg Tab 40 Mg PO DAILY Atorvastatin (Atorvastatin Calcium) 20 Mg Tab 20 Mg PO HS Levothyroxine (Levothyroxine Sodium) 125 Mcg Tab 125 Mcg PO DAILY Diltiazem ER 24 HR 300 Mg Lexy 300 Mg PO DAILY Review of Systems Except as stated in HPI: all other systems reviewed are Neg General / Constitutional: No: Fever Eyes: No: Visual changes HENT: Positive: Rhinorrhea, Congestion, No: Headaches Cardiovascular: Positive: Dyspnea on exertion, No: Chest Pain or Discomfort Respiratory: Positive: Cough, Shortness of Breath Gastrointestinal: No: Nausea, Vomiting, Diarrhea, Abdominal Pain, Changes in Bowel Habits, Indigestion, Loss of Appetite Genitourinary: No: Dysuria Musculoskeletal: No: Pain Skin: No Rash Neurologic: No: Weakness Psychiatric: No: Depression Endocrine: No: Polydipsia Hematologic/Lymphatic: No: Easy Bruising Physical Exam Narrative General: The patient is a well-developed well-nourished female in no acute distress. On 2 L nasal cannula O2, the patient's O2 saturation is 97%. Head and Neck exam: Head is normocephalic atraumatic. Eyes: EOMI, pupils are equal round and reactive to light. Nose: Midline septum with pink mucous membranes Mouth: Dentition unremarkable. Moist mucus membranes. Posterior oropharynx is not erythematous. No tonsillar hypertrophy. Uvula midline. Airway patent. Neck: No palpable lymphadenopathy. No nuchal rigidity. No thyromegaly. Cardiovascular: Regular rate and rhythm without murmurs, gallops, or rubs. Heart rate is in the 60s. Lungs: The patient has decreased breath sounds in bilateral bases. No wheezes, rhonchi , or crackles. Abdomen: Soft, without tenderness to palpation in all 4 quadrants of the abdomen. No guarding, rebound, or rigidity. Normal bowel sounds are audible. No tenderness on palpation of McBurney's point. Extremities: No clubbing, cyanosis, or edema. 2+ pulses in all 4 extremities. No calf tenderness on palpation. Back: No costovertebral angle tenderness to palpation. Neurologic Exam: Grossly nonfocal. Skin Exam: No rash noted. Intact skin that is warm and dry. Data Data Last Documented VS Vital Signs Date Time Temp Pulse Resp B/P (MAP) Pulse Ox O2 Delivery O2 Flow Rate FiO2 04/17/17 00:49 71 18 154/70 (98) 95 Nasal Cannula 3.00 04/16/17 21:17 97.9 Orders Orders Complete Blood Count With Diff (04/16/17 21:35) Comprehensive Metabolic Panel (04/16/17 21:35) B-Type Natriuretic Peptide (04/16/17 21:35) D-Dimer (04/16/17 21:35) Act Partial Throm Time (Ptt) (04/16/17 21:35) Prothrombin Time / Inr (Pt) (04/16/17 21:35) Magnesium (Mg) (04/16/17 21:35) Ckmb (Isoenzyme) Profile (04/16/17 21:35) Troponin I (04/16/17 21:35) Iv Access Insert/Monitor (04/16/17 21:35) Electrocardiogram (04/16/17 21:35) Ecg Monitoring (04/16/17 21:35) Oximetry (04/16/17 21:35) Oxygen Administration (04/16/17 21:35) Chest, Single Ap (04/16/17 21:35) Sodium Chloride 0.9% Flush (Ns Flush) (04/16/17 21:45) Albuterol-Ipratropium Neb (Duoneb Neb) (04/16/17 21:45) Ventilation & Perfusion Scan (04/16/17 23:48) Albuterol Hfa Inh (Proair Hfa Inh) (04/17/17 00:00) Resp Request For Service (04/16/17 ) ^ Special Equipment (04/16/17 23:48) Labs Laboratory Tests Test 04/16/17 22:05 White Blood Count 7.5 TH/MM3 Red Blood Count 3.16 MIL/MM3 Hemoglobin 9.4 GM/DL Hematocrit 29.2 % Mean Corpuscular Volume 92.6 FL Mean Corpuscular Hemoglobin 29.7 PG Mean Corpuscular Hemoglobin Concent 32.0 % Red Cell Distribution Width 14.3 % Platelet Count 209 TH/MM3 Mean Platelet Volume 8.9 FL Neutrophils (%) (Auto) 83.8 % Lymphocytes (%) (Auto) 7.0 % Monocytes (%) (Auto) 6.8 % Eosinophils (%) (Auto) 1.8 % Basophils (%) (Auto) 0.6 % Neutrophils # (Auto) 6.3 TH/MM3 Lymphocytes # (Auto) 0.5 TH/MM3 Monocytes # (Auto) 0.5 TH/MM3 Eosinophils # (Auto) 0.1 TH/MM3 Basophils # (Auto) 0.0 TH/MM3 CBC Comment DIFF FINAL Differential Comment Prothrombin Time 10.1 SEC Prothromb Time International Ratio 0.9 RATIO Activated Partial Thromboplast Time 27.7 SEC D-Dimer Quantitative (PE/DVT) 1.48 MG/L FEU Blood Urea Nitrogen 32 MG/DL Creatinine 2.60 MG/DL Random Glucose 286 MG/DL Total Protein 7.9 GM/DL Albumin 3.4 GM/DL Calcium Level 9.1 MG/DL Magnesium Level 2.2 MG/DL Alkaline Phosphatase 109 U/L Aspartate Amino Transf (AST/SGOT) 12 U/L Alanine Aminotransferase (ALT/SGPT) 15 U/L Total Bilirubin 0.4 MG/DL Sodium Level 135 MEQ/L Potassium Level 4.4 MEQ/L Chloride Level 98 MEQ/L Carbon Dioxide Level 27.5 MEQ/L Anion Gap 10 MEQ/L Estimat Glomerular Filtration Rate 21 ML/MIN Total Creatine Kinase 99 U/L Troponin I LESS THAN 0.02 NG/ML B-Type Natriuretic Peptide 234 PG/ML MDM Medical Decision Making Medical Screen Exam Complete: Yes Emergency Medical Condition: Yes Medical Record Reviewed: Yes Interpretation(s) Last Impressions Chest X-Ray 04/16/172134 Signed Impressions: Service Date/Time: Sunday, April 16, 2017 21:52 - CONCLUSION: Cardiomegaly with mild vascular congestion but no evidence of pulmonary edema or acute air space disease. Renato Coughlin MD Differential Diagnosis New-onset congestive heart failure, versus pneumonia, versus pulmonary fibrosis , versus reactive airway exacerbation, versus acute coronary syndrome, versus pulmonary embolism Narrative Course During the course of the patients emergency department visit, the patients history, examination, and differential diagnosis were reviewed with the patient. The patient had IV access obtained and blood work sent for analysis. The patient was placed on a monitoring manager with oximetry and blood pressure monitoring. The patients laboratory studies were reviewed and remarkable for a white count of 7.5, hemoglobin 9.4 which is stable compared to previously with last hemoglobin of 8.7 in October, platelets 209 with 83.8 neutrophils, CMP is remarkable for a BUN of 32, creatinine 2.6 which is also stable compared to previously, glucose 286, AST is 12, CPK 99, troponin I less than 0.02, BNP is 238 which is compared to previously and was elevated at 300 during her last hospitalization in October. The patient had a 2-D echo done at that time that showed that her wall thickness was increased in a pattern of moderate LVH, systolic function was normal. Ejection fraction 55-60%. Radiology studies were reviewed and remarkable for a chest x-ray that showed cardiomegaly with mild vascular congestion, however no evidence of pulmonary edema or infiltrate. The patient's d-dimer was elevated, therefore as the patient has renal insufficiency a VQ scan was ordered. The patient's VQ scan was low probability for PE. The patient was reexamined and reported feeling improved after 2 DuoNeb's. The patient has no nebulizer machine at home. According to the record, the patient had been on nebulizer treatments in the past. The patient was given education by respiratory therapy about use of an inhaler with a spacer. The patient was instructed to use a per air inhaler 2 puffs every 4-6 hours as needed for shortness of breath with exertion. Additionally, the patient is encouraged to use her CPAP machine as previously prescribed. The patient is instructed regarding the importance of following up with her marketing and development coordinator as well as her wearing apparel shaker as previously scheduled. The patient is resting comfortably and feels better, is alert and in no distress. The patients results and examination findings were discussed with the patient. The repeat examination is unremarkable and benign. The history, exam, diagnostic testing, and current condition do not suggest any significant pathology to warrant further testing, continued ED treatment, admission, or surgical evaluation at this point. The vital signs have been stable. The patient does not have uncontrollable pain, intractable vomiting, or other significant symptoms. The patient's condition is stable and appropriate for discharge. The patient will pursue further outpatient evaluation with a primary care physician or other designated or consulting physician as indicated in the discharge instructions. The patient expressed understanding and was agreeable with this plan. Diagnosis Primary Impression: Shortness of breath Additional Impressions: Sleep apnea Qualified Codes: G47.30 - Sleep apnea, unspecified Reactive airway disease Qualified Codes: J45.21 - Mild intermittent asthma with (acute) exacerbation Referrals: Manager In Home Primary Care Physician 1 day Advertising Coordinator Patient Instructions: General Instructions, Reactive Airways Disease (ED), Shortness of Breath (ED) Additional Instructions: the patient is encouraged to use her CPAP machine as previously prescribed. Med/Other Pt SpecificInfo: Prescription(s) given Scripts Albuterol 8.5 GM Inh (Proair Hfa 8.5 GM Inh) 90 Mcg/Act Aer 2 PUFF INH Q4-6H Y for SHORTNESS OF BREATH, #1 INHALER 0 Refills 108 mcg/actuation Prov: Mali Bland MD 04/17/17 Disposition: 01 DISCHARGE HOME Condition: Stable Mali Bland MD Apr 16, 2017 21:45
--- NOTE | 2017-04-16 21:56 | RADRPT ---
EXAM DATE/TIME: 04/16/2017 21:52 [facility] COMPARISON: CHEST SINGLE AP, October 06, 2016, 18:35. INDICATIONS : Short of breath MEDICAL HISTORY : Venous insufficiency. Hypercholesterolemia. Diabetes mellitus type II.Hypertension. A-fib. SURGICAL HISTORY : None. ENCOUNTER: Initial ACUITY: 1 day PAIN SCORE: 0/10 LOCATION: chest FINDINGS: Heart is mildly enlarged. Mild diffuse vascular fullness is noted. There is no evidence of consolidat ing airspace disease or significant pleural effusion. Osseous structures remain intact. CONCLUSION: Cardiomegaly with mild vascular congestion but no evidence of pulmonary edema or acute air space dise ase. Renato Coughlin MD on April 16, 2017 at 21:54 Board Certified Radiologist. This report was verified electronically.
[2017-04-16] MEDS: RESP: ALBUTEROL 2.5 MG/IPRATROPIUM 0.5 MG NEB (SCH) INH (21:57)
[2017-04-16 22:33] LABS: AUTOMATED NEUTROPHIL # 6.3 TH/MM3 (1.8-7.7); BASOPHIL % 0.6 % (0.0-2.0); EOSINOPHIL # 0.1 TH/MM3 (0-0.4); EOSINOPHIL % 1.8 % (0.0-4.0); HEMATOCRIT 29.2 % (35.0-46.0); HEMO FLAGS DIFF FINAL; LYMPHOCYTE # 0.5 TH/MM3 (1.0-4.8); MEAN CELL VOLUME 92.6 FL (80.0-100.0); MEAN CORPUSCULAR HEMOGLOBIN 29.7 PG (27.0-34.0); MONO % 6.8 % (0.0-8.0); NEUT % 83.8 % (16.0-70.0); PLATELET COUNT 209 TH/MM3 (150-450); RED BLOOD COUNT 3.16 MIL/MM3 (4.00-5.30); RED CELL DISTRIBUTION WIDTH 14.3 % (11.6-17.2); WHITE BLOOD COUNT 7.5 TH/MM3 (4.0-11.0)
[2017-04-16 22:38] LABS: ANION GAP 10 MEQ/L (5-15); AST (GOT) 12 U/L (15-37); BICARBONATE 27.5 MEQ/L (21.0-32.0); BLOOD UREA NITROGEN 32 MG/DL (7-18); CHLORIDE 98 MEQ/L (98-107); GLOMERULAR FILTRATION RATE 21 ML/MIN (>89); MAGNESIUM 2.2 MG/DL (1.5-2.5); POTASSIUM 4.4 MEQ/L (3.5-5.1); SODIUM (NA) 135 MEQ/L (136-145)
[2017-04-16 22:44] LABS: ALKALINE PHOSPHATASE 109 U/L (45-117); ALT (GPT) 15 U/L (10-53); TOTAL BILIRUBIN ADULT 0.4 MG/DL (0.2-1.0)
[2017-04-16 22:45] LABS: CREATINE KINASE 99 U/L (26-192)
[2017-04-16 23:01] LABS: APTT (PATIENT) 27.7 SEC (24.3-30.1); INTERNATIONAL NORMALIZED RATIO 0.9 RATIO; PROTHROMBIN TIME - PATIENT 10.1 SEC (9.8-11.6)
[2017-04-17] MEDS ORDERED: ALBUTEROL SULFATE 90 MCG/ACT HFA 8 GM INHALER INH ONE
[2017-04-17 00:49] VITALS: BP 154/70; PULSE 71; RESP 18; O2SAT 95
--- NOTE | 2017-04-17 01:38 | RADRPT ---
EXAM DATE/TIME: 04/17/2017 00:36 [facility] COMPARISON: CHEST SINGLE AP, April 16, 2017, 21:52. LUNG VENTILATION & PERFUSION SCAN, October 07, 2013, 10:34. INDICATIONS : Dyspnea. DOSE: 7.8 mCi Tc99m MAA IV 0.6 mCi Tc99m DTPA aerosol MEDICAL HISTORY : Hypercholesterolemia. Hypertension. Diabetes mellitus type 2. Atrial fibrillation. SURGICAL HISTORY : Colon resection. Cholecystectomy. ENCOUNTER: Initial ACUITY: 1 week PAIN SCALE: 0/10 LOCATION: chest TECHNIQUE: Following five minutes of tidal breathing of DTPA aerosol, planar images of the lungs were performed in eight projections. The patient was then injected with MAA, and eight-view perfusion scan was perf ormed. FINDINGS: There is a matched segmental defect of the right lower lobe without radiographic abnormality. The rem ainder of the examination is unremarkable. CONCLUSION: 1. Low probability pulmonary embolism Brian Mcmanus MD on April 17, 2017 at 1:33 Board Certified Radiologist. This report was verified electronically.
[2017-04-17] MEDS ORDERED: ALBUAER3 INH (01:51)
[2017-04-17 02:15] VITALS: BP 172/81
--- NOTE | 2017-04-17 22:10 | EKG ---
Date Performed: 04/16/2017 Time Performed: 22:08:28 PTAGE: 82 years EKG: Sinus rhythm WITH FIRST DEGREE AV BLOCK ABNORMAL ECG PREVIOUS TRACING : 10/06/2016 08.44 Compared to the previous tracing tachycardia no longer pres ent DOCTOR: Francheska Cardenas Interpretating Date/Time 04/17/2017 22:09:34
== END 2017-04-17 02:45 | disposition home or self-care (01) ==
LOC: NEPE 20:33
DX: R06.02 Shortness of breath (principal); G47.30 Sleep apnea, unspecified; J45.21 Mild intermittent asthma with (acute) exacerbation; I48.91 Unspecified atrial fibrillation; Z79.01 Long term (current) use of anticoagulants; Z99.81 Dependence on supplemental oxygen
CPT/HCPCS: 71010; 78582; 80053; 82550; 83735; 83880; 84484; 85025; 85379; 85610; 85730; 93005; 94640; 94664; 99285; A9540; A9567

== ENCOUNTER 2017-04-19 06:10 | Inpatient (IN) | payer OTHER, MEDICARE ==
[~2017-04-19] VITALS: Ht 165.1 cm; Wt 113.6 kg
[2017-04-19] VITALS (33 sets, daily range): BP systolic 70–184; BP diastolic 41–87; PULSE 52–76; RESP 0–22; TEMP 96.9–99; O2SAT 75–100
[~2017-04-19 06:10] MED LIST changes: +ALBUAER3 INH; -FURO40TA PO; -METO-309 PO; +METO50TA PO; -OMEP20TA PO; +OMEP20TA93 PO; -PRED10PA PO
[2017-04-19] MEDS ORDERED: PROPOFOL 1000 MG/100 ML INJ 100 ML ONE (06:24)
[2017-04-19] MEDS ORDERED: ETOMIDATE 20 MG/10 ML VIAL IVP ONE (06:30)
[2017-04-19] MEDS ORDERED: PROPOFOL 1000 MG/100 ML INJ 100 ML IV PRN (06:30)
[2017-04-19] MEDS ORDERED: SUCCINYLCHOLINE CHLORIDE 200 MG/10 ML VIAL IV PUSH ONE (06:30)
[2017-04-19] MEDS ORDERED: SODIUM CHLORIDE 0.9% FLUSH 10 ML FLUSH IVF PRN (06:30)
[2017-04-19] MEDS: RESP: ALBUTEROL 2.5 MG/IPRATROPIUM 0.5 MG NEB (SCH) INH ×3 (06:45→07:07)
--- NOTE | 2017-04-19 07:05 | RADRPT ---
EXAM DATE/TIME: 04/19/2017 06:34 [facility] COMPARISON: CHEST SINGLE AP, April 16, 2017, 21:52. INDICATIONS : Post intubation, short of breath. MEDICAL HISTORY : Venous insufficiency. Hypercholesterolemia. Diabetes mellitus type II.Hypertension. A-fib. SURGICAL HISTORY : None. ENCOUNTER: Initial ACUITY: 1 day PAIN SCORE: 0/10 LOCATION: Bilateral chest FINDINGS: Trachea nasogastric tube have been inserted and are in good position. Increasing density seen through out both lungs. Patchy airspace disease is developing especially medially within the right upper lobe . CONCLUSION: 1. Interval placement of endotracheal and nasogastric tubes which are in good position. 2. Increasing airspace disease especially within the right upper lobe. Renato Coughlin MD on April 19, 2017 at 7:01 Board Certified Radiologist. This report was verified electronically.
[2017-04-19 07:13] LABS: APTT (PATIENT) 24.5 SEC (24.3-30.1); INTERNATIONAL NORMALIZED RATIO 0.9 RATIO; PROTHROMBIN TIME - PATIENT 10.1 SEC (9.8-11.6)
[2017-04-19 07:14] LABS: BLOOD GAS BASE EXCESS 0.1 mmol/L (-2-2); BLOOD GAS CARBOXYHEMOGLOBIN 2.1 % (0-4); BLOOD GAS HCO3 25 mmol/L (22-26); BLOOD GAS METHEMOGLOBIN 0.3 % (0-2); BLOOD GAS O2 HGB SATURATION 98 % (90-100); BLOOD GAS PCO2 47 mmHg (38-42); BLOOD GAS PO2 302 mmHG (61-120); BLOOD GAS TOTAL HGB 9.6 G/DL (12.0-16.0); TEMP CORR TO 98.6
[2017-04-19 07:15] LABS: AUTOMATED NEUTROPHIL # 8.6 TH/MM3 (1.8-7.7); BASOPHIL # 0.1 TH/MM3 (0-0.2); BASOPHIL % 0.8 % (0.0-2.0); EOSINOPHIL # 0.4 TH/MM3 (0-0.4); EOSINOPHIL % 3.3 % (0.0-4.0); HEMATOCRIT 28.6 % (35.0-46.0); HEMO FLAGS DIFF FINAL; LYMPH % 22.2 % (9.0-44.0); LYMPHOCYTE # 2.9 TH/MM3 (1.0-4.8); MEAN CELL VOLUME 94.4 FL (80.0-100.0); MEAN CORPUSCULAR HEMOGLOBIN 29.5 PG (27.0-34.0); MEAN CORPUSCULAR HGB CONC 31.2 % (32.0-36.0); MONO % 7.7 % (0.0-8.0); PLATELET COUNT 241 TH/MM3 (150-450); RED BLOOD COUNT 3.03 MIL/MM3 (4.00-5.30); RED CELL DISTRIBUTION WIDTH 14.6 % (11.6-17.2); WHITE BLOOD COUNT 13.1 TH/MM3 (4.0-11.0)
[2017-04-19] MEDS ORDERED: SODIUM CHLOR 0.9% 1000 ML INJ 1,000 ML IV ONE ×4 (07:15→13:30)
[2017-04-19 07:16] LABS: CRITICAL VALUE NO; DRAW SITE RT RADIAL; FIO2 100 %; NUMBER OF ARTERIAL PUNCTURES 1; OXYGEN DEVICE VENTILATOR; STAT YES; ULNAR PULSE PRESENT; VENT SETTINGS AC/14/500/PEEP5
[2017-04-19 07:20] LABS: ALT (GPT) 18 U/L (10-53); ANION GAP 8 MEQ/L (5-15); AST (GOT) 12 U/L (15-37); BICARBONATE 27.2 MEQ/L (21.0-32.0); BLOOD UREA NITROGEN 31 MG/DL (7-18); CHLORIDE 101 MEQ/L (98-107); GLOMERULAR FILTRATION RATE 19 ML/MIN (>89); MAGNESIUM 2.5 MG/DL (1.5-2.5); POTASSIUM 4.9 MEQ/L (3.5-5.1); SODIUM (NA) 136 MEQ/L (136-145)
[2017-04-19 07:24] LABS: BACTERIA, URINE MANY /hpf; BLOOD, URINE TRACE (NEG); COMMENT (UR) CULTURE INDICATED; CULTURE IF INDICATED CULTURE INDICATED; GLUCOSE,URINE NEG (NEG); KETONE, URINE NEG (NEG); NITRITE,URINE NEG (NEG); PH, URINE 5.5 (5.0-8.5); SQUAMOUS EPITHELIAL CELL URINE 1 /hpf (0-5); URINE COLOR YELLOW (YELLW/STRAW)
[2017-04-19 07:25] LABS: ALKALINE PHOSPHATASE 120 U/L (45-117); TOTAL BILIRUBIN ADULT 0.5 MG/DL (0.2-1.0)
[2017-04-19 07:26] LABS: CREATINE KINASE 93 U/L (26-192)
--- NOTE | 2017-04-19 07:47 | PD ---
HPI Chief Complaint: Respiratory Distress Time Seen by Provider: 06:24 Travel History International Travel<30 days: No Contact w/Intl Traveler<30days: No Traveled to known affect area: No History of Present Illness HPI The patient is an 82 year old female who presents to the [facility] emergency department with a history of slumping over in the front seat of her 's vehicle prior to arrival. The patient's reports to me that the patient told him this morning that she was not feeling well and would need to go back to the emergency department. The patient was just seen in the emergency department 2 days ago and diagnosed with a COPD exacerbation. The patient's then reports that they ate breakfast prior to coming. While driving to the emergency department he noticed that she slumped over suddenly. She did not seem to be breathing well. He drove his fast as he could to the emergency department for evaluation. In triage, he requested assistance for having his out of the car. On initial evaluation the patient was noted to be slumped over with a poor respiratory effort. The patient was noted to have a thready pulse. The patient was urgently brought back on a gurney while being bagged. The patient was not able to provide any history. The patient's other history is obtained from reviewing the electronic medical record. [facility] Past Medical History Narrative Medical The patient's past medical history is significant for hypertension, atrial fibrillation, diabetes mellitus, obesity, hypothyroid disorder, hyperlipidemia, diabetic neuropathy, underlying restrictive lung disease related to obesity, history of respiratory distress requiring admission in August for pneumonia and influenza. The patient is chronically anticoagulated on Eliquis due to her atrial fibrillation. Hx Anticoagulant Therapy: Yes (ELIQUIS) Arthritis: Yes (RIGHT SHOULDER,HIP AND FOOT) Asthma: Yes Atrial Fibrillation: Yes Autoimmune Disease: Yes (GOUT RIGHT FOOT) Blood Disorders: No Anxiety: No Depression: No Heart Rhythm Problems: Yes (afib) Cancer: Yes (thyroid) Cardiovascular Problems: Yes (AFIB, HTN) High Cholesterol: Yes Chemotherapy: No Chest Pain: No Congestive Heart Failure: No COPD: No Cerebrovascular Accident: No Diabetes: Yes (TAKES INSULIN) Patient Takes Glucophage: No Diminished Hearing: No Endocrine: Yes Gastrointestinal Disorders: No GERD: No Glaucoma: No Gout: Yes Genitourinary: No Headaches: No Hepatitis: No Hiatal Hernia: No Hypertension: Yes Immune Disorder: No Implanted Vascular Access Dvce: No Kidney Stones: No Musculoskeletal: No Neurologic: No Psychiatric: No Reproductive: No Respiratory: Yes Myocardial Infarction: No Radiation Therapy: No Renal Failure: No Seizures: No Sickle Cell Disease: No Sleep Apnea: No Thyroid Disease: Yes Ulcer: No Tetanus Vaccination: Unknown PNEUMOCCOCAL Vaccine (Year): 2 ?: Not Menopausal: Yes : 5 Para: 2 Miscarriage: 1 Past Surgical History Narrative Surgical The patient's past surgical history is significant for a total thyroidectomy related to thyroid cancer, partial small bowel resection, cholecystectomy, cataract surgery. Abdominal Surgery: Yes (cholecysectomy, colon resection) AICD: No Arteriovenous Shunt: No Cardiac Surgery: No Cholecystectomy: Yes Ear Surgery: No Endocrine Surgery: Yes (thyroid removal ) Eye Surgery: Yes (BILAT CATARACT) Genitourinary Surgery: No Gynecologic Surgery: No Insulin Pump: No Joint Replacement: No Neurologic Surgery: No Oral Surgery: No Pacemaker: No Thoracic Surgery: No Other Surgery: Yes (THYROIDECTOMY 2010) Social History Alcohol Use: Yes (OCCASIONALLY DRINKS WINE) Tobacco Use: No Substance Use: No Allergies-Medications (Allergen,Severity, Reaction): Coded Allergies: celecoxib (Unverified Allergy, Severe, SYNCOPE, 04/16/17) Reported Meds & Prescriptions Reported Meds & Active Scripts Active Proair Hfa 8.5 GM Inh (Albuterol Sulfate) 90 Mcg/Act Aer 2 Puff INH Q4-6H PRN 108 mcg/actuation Oxygen tank (Oxygen) 1 Ea Tank 2 Liter IGLESIA.CANULA CONTINUOUS Oxygen Concentrator Portable Gaseous 2 L/min via Nasal Cannula Continuous For 99 months Reported Metoprolol Tartrate 50 Mg Tab 50 Mg PO BID Lantus Solostar Pen Inj (Insulin Glargine) 300 Unit/3 Ml Pen 22 Units SQ HS Vitamin D (Cholecalciferol) 400 Unit Cap 400 Units PO BID Multivitamin Gummies Adul (Multiple Vitamins W/ Minerals) 1 Chw Chw 1 Chew PO BID Eliquis (Apixaban) 2.5 Mg Tab 2.5 Mg PO BID Calcitriol 0.25 Mcg Cap 0.25 Mcg PO DAILY Omeprazole 20 Mg Tab 20 Mg PO BID Gabapentin 100 Mg Cap 100 Mg PO BID Lisinopril 40 Mg Tab 40 Mg PO DAILY Atorvastatin (Atorvastatin Calcium) 20 Mg Tab 20 Mg PO HS Levothyroxine (Levothyroxine Sodium) 125 Mcg Tab 125 Mcg PO DAILY Diltiazem ER 24 HR 300 Mg Lexy 300 Mg PO DAILY Review of Systems ROS Limitations: Unresponsive Respiratory: Positive: Shortness of Breath Neurologic: Positive: Change in Mentation Physical Exam Narrative General: The patient is a well-developed well-nourished female, unresponsive on arrival, pinpoint pupils on initial evaluation. Agonal respiratory effort noted. Head and Neck exam: Head is normocephalic atraumatic. Eyes: Extraocular motion testing is unable to be accomplished in this patient who arrives unresponsive. The patient's pupils are pinpoint on initial evaluation. Nose: Midline septum with pink mucous membranes Mouth: Dentition unremarkable. Moist mucus membranes. Posterior oropharynx appears to have food pooling up from the esophagus, however none is visualized on laryngoscopy down in the airway. No tonsillar hypertrophy. Uvula midline. Airway patent. Neck: No palpable lymphadenopathy. No nuchal rigidity. No thyromegaly. Cardiovascular: Regular rate and rhythm without murmurs, gallops, or rubs. No pulse deficit to the extremities on simultaneous auscultation and palpation of the radial artery. Lungs: Decreased breath sounds bilaterally in the bases. Poor respiratory effort noted. Abdomen: Soft, without tenderness to palpation in all 4 quadrants of the abdomen. No guarding, rebound, or rigidity. Normal bowel sounds are audible. No tenderness on palpation of McBurney's point. Extremities: No clubbing, cyanosis, or edema. 2+ pulses in all 4 extremities. Neurologic Exam: The patient relates arrives with a decreased level of consciousness, agonal respiratory effort. After bagging the patient on 100% oxygen the patient began to spontaneously open her eyes, However she continued to have a decreased level of consciousness with poor respiratory effort. She had no significant response to Narcan administration. Skin Exam: No rash noted. Intact skin that is warm although mildly diaphoretic. Data Data Last Documented VS Vital Signs Date Time Temp Pulse Resp B/P (MAP) Pulse Ox O2 Delivery O2 Flow Rate FiO2 04/19/17 07:30 93 50 04/19/17 07:20 52 14 71/41 (51) Ventilator 04/19/17 06:46 96.9 Orders Orders Propofol 1000 Mg/100 Ml Inj (Diprivan 10 (04/19/17 06:24) Chest, Single Ap (04/19/17 06:24) Arterial Blood Gas (Abg) (04/19/17 06:24) Ecg Monitoring (04/19/17:24) Iv Access Insert/Monitor (04/19/17:24) Oximetry (04/19/17:24) Oxygen Administration (04/19/17:24) Etomidate Inj (Amidate Inj) (04/19/17 06:30) Succinylcholine Inj (Quelicin Inj) (04/19/17 06:30) Albuterol-Ipratropium Neb (Duoneb Neb) (04/19/17 06:30) Sodium Chloride 0.9% Flush (Ns Flush) (04/19/17 06:30) Restraints Non-Violent KOMAL.Q3H (04/19/17 06:24) Electrocardiogram (04/19/17:24) Complete Blood Count With Diff (04/19/17:24) Comprehensive Metabolic Panel (04/19/17:24) Creatine Kinase (Cpk) (04/19/17:24) Ckmb (Isoenzyme) Profile (04/19/17 06:24) Troponin I (04/19/17:24) B-Type Natriuretic Peptide (04/19/17:24) Prothrombin Time / Inr (Pt) (04/19/17:24) Act Partial Throm Time (Ptt) (04/19/17:24) Lipase (04/19/17:24) Urinalysis - C+S If Indicated (04/19/17:24) Magnesium (Mg) (04/19/17:24) Urinary Catheter Insert/Apply (04/19/17:24) Kori-Gastric Tube Insert/Mon (04/19/17 06:24) Propofol 1000 Mg/100 Ml Inj (Diprivan 10 (04/19/17 06:30) ^ Infusion (04/19/17 06:24) RASS (04/19/17 06:24) Neurological Rass Scale KOMAL.Q2H (04/19/17 06:24) Ct Brain W/O Iv Contrast(Rout) (04/19/17 07:02) Sodium Chlor 0.9% 1000 Ml Inj (Ns 1000 M (04/19/17 07:15) Thyroid Stimulating Hormone (04/19/17 07:19) Free T3 (04/19/17 07:19) Sodium Chlor 0.9% 1000 Ml Inj (Ns 1000 M (04/19/17 07:30) Urine Culture (04/19/17 06:15) Admit Order (Ed Use Only) (04/19/17 07:45) Quality Assurance Qa Lab Technician / Telemetry KOMAL.Q8H (04/19/17 07:47) Diet Npo (04/19/17 Breakfast) Activity Bed Rest (04/19/17 07:47) Notify Dr: Other (04/19/17 07:47) Labs Laboratory Tests Test 04/19/17 06:15 04/19/17 07:00 White Blood Count 13.1 TH/MM3 Red Blood Count 3.03 MIL/MM3 Hemoglobin 8.9 GM/DL Hematocrit 28.6 % Mean Corpuscular Volume 94.4 FL Mean Corpuscular Hemoglobin 29.5 PG Mean Corpuscular Hemoglobin Concent 31.2 % Red Cell Distribution Width 14.6 % Platelet Count 241 TH/MM3 Mean Platelet Volume 8.9 FL Neutrophils (%) (Auto) 66.0 % Lymphocytes (%) (Auto) 22.2 % Monocytes (%) (Auto) 7.7 % Eosinophils (%) (Auto) 3.3 % Basophils (%) (Auto) 0.8 % Neutrophils # (Auto) 8.6 TH/MM3 Lymphocytes # (Auto) 2.9 TH/MM3 Monocytes # (Auto) 1.0 TH/MM3 Eosinophils # (Auto) 0.4 TH/MM3 Basophils # (Auto) 0.1 TH/MM3 CBC Comment DIFF FINAL Differential Comment Prothrombin Time 10.1 SEC Prothromb Time International Ratio 0.9 RATIO Activated Partial Thromboplast Time 24.5 SEC Urine Color YELLOW Urine Turbidity CLOUDY Urine pH 5.5 Urine Specific [place] 1.012 Urine Protein 100 mg/dL Urine Glucose (UA) NEG mg/dL Urine Ketones NEG mg/dL Urine Occult Blood TRACE Urine Nitrite NEG Urine Bilirubin NEG Urine Urobilinogen LESS THAN 2.0 MG/DL Urine Leukocyte Esterase NEG Urine RBC 1 /hpf Urine WBC 1 /hpf Urine Squamous Epithelial Cells 1 /hpf Urine Amorphous Sediment OCC Urine Bacteria MANY /hpf Microscopic Urinalysis Comment CULTURE INDICATED Blood Urea Nitrogen 31 MG/DL Creatinine 2.94 MG/DL Random Glucose 263 MG/DL Total Protein 7.8 GM/DL Albumin 3.2 GM/DL Calcium Level 8.8 MG/DL Magnesium Level 2.5 MG/DL Alkaline Phosphatase 120 U/L Aspartate Amino Transf (AST/SGOT) 12 U/L Alanine Aminotransferase (ALT/SGPT) 18 U/L Total Bilirubin 0.5 MG/DL Sodium Level 136 MEQ/L Potassium Level 4.9 MEQ/L Chloride Level 101 MEQ/L Carbon Dioxide Level 27.2 MEQ/L Anion Gap 8 MEQ/L Estimat Glomerular Filtration Rate 19 ML/MIN Total Creatine Kinase 93 U/L Troponin I LESS THAN 0.02 NG/ML B-Type Natriuretic Peptide 274 PG/ML Lipase 269 U/L Blood Gas Puncture Site RT RADIAL Blood Gas Patient Temperature 98.6 Blood Gas HCO3 25 mmol/L Blood Gas Base Excess 0.1 mmol/L Blood Gas Oxygen Saturation 98 % Arterial Blood pH 7.35 Arterial Blood Partial Pressure CO2 47 mmHg Arterial Blood Partial Pressure O2 302 mmHG Arterial Blood Oxygen Content 14.0 Vol % Arterial Blood Carboxyhemoglobin 2.1 % Arterial Blood Methemoglobin 0.3 % Blood Gas Hemoglobin 9.6 G/DL Oxygen Delivery Device VENTILATOR Blood Gas Ventilator Setting AC/14/500/PEEP5 Blood Gas Inspired Oxygen 100 % [facility] Medical Decision Making Medical Screen Exam Complete: Yes Emergency Medical Condition: Yes Medical Record Reviewed: Yes Interpretation(s) Last Impressions Head CT 04/19/17701 Signed Impressions: Service Date/Time: Wednesday, April 19, 2017 07:29 - CONCLUSION: 1. Cerebral white matter hypodensity characteristic of chronic microvascular ischemic disease. 2. No evidence of acute infarct, hemorrhage, mass or edema. Renato Coughlin MD Chest X-Ray 04/19/17623 Signed Impressions: Service Date/Time: Wednesday, April 19, 2017 06:34 - CONCLUSION: 1. Interval placement of endotracheal and nasogastric tubes which are in good position. 2. Increasing airspace disease especially within the right upper lobe. Renato Coughlin MD Differential Diagnosis Respiratory failure due to COPD exacerbation, versus congestive heart failure with fluid overload, versus pneumonia, versus aspiration, versus acute coronary syndrome. Narrative Course During the course of the patients emergency department visit, the patients history, examination, and differential diagnosis were reviewed with the patient. The patient had IV access obtained and blood work sent for analysis. 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 An ECG was done on arrival. The patient's EKG shows a sinus rhythm with a rate of 66. No acute ST segment elevation or depression. QRS duration is 78 ms, QTC 454 milliseconds. As the patient initially had pinpoint pupils with poor respiratory effort the patient was given Narcan 2 mg IV. There was no significant response. Blood sugar was checked and found to be normal. A CT scan of the brain was ordered to rule out intracranial hemorrhage as the patient is chronically anticoagulated. The patient was prepared for rapid sequence intubation by me. The patient was provided etomidate and succinylcholine for intubation. Subsequent intubation the patient had an OG tube placed to intermittent suction. The patient had a Nelson catheter placed to gravity. The patient had a chest x-ray ordered post intubation. The patient's initial blood pressure on arrival was 174 systolic, however after intubation the blood pressure began to drop slightly, therefore normal saline as a bolus was administered 1 L. The patient was placed on a ventilator. The patient's ABG shows a pH of 7.35, PCO2 47 demonstrating hypercapnia, PO2 3 O2. The Patient's FiO2 will be weaned on the ventilator. The patients laboratory studies were reviewed and remarkable for a white count of 13.1, hemoglobin 8.9 which is similar to her prior hemoglobin of 9.4 in this patient who has a history of chronic anemia. The patient's platelets are 241 with a normal differential, CMP is remarkable for a BUN of 31, creatinine 2.94 which is similar to prior renal insufficiency in this patient, AST 12, alkaline phosphatase 120, troponin I is less than 0.02, BNP is 274, lipase 269. PT PTT within normal limits. Urinalysis shows many bacteria, trace occult blood, 100 protein, culture indicated. Chest x-ray showed interval placement of endotracheal tube and for a gastric tube which are in good position. Increasing airspace disease especially within the right upper lobe is noted. CT scan of the brain showed cerebral white matter hypodensity characteristic of chronic microvascular ischemic disease. No evidence of acute infarct, hemorrhage, mass, or edema. The patient's electronic medical record was reviewed. The patient was seen in the emergency department on April 16. The patient had an elevated d-dimer and did undergo a VQ scan due to her renal insufficiency. VQ scan came back low probability for pulmonary embolism at that time on April 16, 2017. The patients results were discussed with the patient, including the plan of care. I explained that further testing and/ or monitoring is indicated based on the patients history, examination, and/ or laboratory findings. Therefore, I recommended admission for additional evaluation. The patient expressed understanding and was agreeable with this plan. The patient was admitted to the hospital in critical condition and sent to a bed under the care of the flare stitcher service. Critical Care Narrative Aggregate critical care time was 40 minutes. Time to perform other separately billable procedures was not included in the critical care time. My time did not include minutes spent treating any other patients simultaneously or on activities that did not directly contribute to the patient's treatment. The services I provided to this patient were to treat and/or prevent clinically significant deterioration that could result in: Hypoxic brain injury, versus cardiovascular collapse, versus cardiac arrhythmia, versus cardiopulmonary arrest I provided critical care services requiring my management, as noted below: Chart data review, documentation time, medication orders and management, vital sign assessments/reviewing monitor data, ordering and reviewing lab tests, ordering and interpreting/reviewing x-rays and diagnostic studies, care of the patient and discussion of the patient with the admitting physicians. Procedures Procedure Narrative Emergent INTUBATION: The patient was put in optimal position for the procedure. Rapid sequence intubation was initiated by me using 20 milligrams of etomidate IV and succinylcholine 100 mg IV. The patient was intubated with a 7-1/2 cuffed endotracheal tube using the [facility]. Tube placement was confirmed by visualization of the tube and balloon passing through the cords, capnometry and subsequent chest x-ray. Breath sounds were equal and well aerated bilaterally postintubation. No breath sounds over stomach. Patient tolerated procedure well. Physician Communication Physician Communication The patient's case was discussed with Dr. Song who did agree to admit the patient for further evaluation and treatment at this time. Diagnosis Primary Impression: Respiratory failure Qualified Codes: J96.01 - Acute respiratory failure with hypoxia; J96.02 - Acute respiratory failure with hypercapnia Admitting Information Admitting Physician Requests: Mali Winslow MD Apr 19, 2017 07:47
--- NOTE | 2017-04-19 07:50 | RADRPT ---
EXAM DATE/TIME: 04/19/2017 07:29 [place] COMPARISON: CT BRAIN W/O CONTRAST, October 06, 2013, 20:03. INDICATIONS : Altered mental status RADIATION DOSE: 56.35 CTDIvol (mGy) MEDICAL HISTORY : Hypertension. Diabetes mellitus type 1. SURGICAL HISTORY : None. ENCOUNTER: Initial ACUITY: 1 day PAIN SCALE: Non-responsive LOCATION: cranial TECHNIQUE: Multiple contiguous axial images were obtained of the head. Using automated exposure control and adj ustment of the mA and/or kV according to patient size, radiation dose was kept as low as reasonably a chievable to obtain optimal diagnostic quality images. DICOM format image data is available electro nically for review and comparison. FINDINGS: CEREBRUM: The ventricles are normal for age. No evidence of midline shift, mass lesion, hemorrhage or acute in farction. Mild patchy hypodensity is identified in the cerebral white matter. No extra-axial fluid co llections are seen. POSTERIOR FOSSA: The cerebellum and brainstem are intact. The 4th ventricle is midline. The cerebellopontine angle i s unremarkable. EXTRACRANIAL: The visualized portion of the orbits is intact. SKULL: The calvaria is intact. No evidence of skull fracture. CONCLUSION: 1. Cerebral white matter hypodensity characteristic of chronic microvascular ischemic disease. 2. No evidence of acute infarct, hemorrhage, mass or edema. Renato Coughlin MD on April 19, 2017 at 7:47 Board Certified Radiologist. This report was verified electronically.
[2017-04-19] MEDS ORDERED: MISCELLANEOUS NURSING INFORMATION XX SCH (08:30)
[2017-04-19] MEDS ORDERED: CHLORHEXIDINE GLUCONATE 2 % 1 PACK (2 CLOTHS) TOP PRN (08:30)
[2017-04-19] MEDS: RESP: ALBUTEROL 2.5 MG/IPRATROPIUM 0.5 MG NEB (SCH) NEB ×3 (09:23→21:03)
[2017-04-19] MEDS: PANTOPRAZOLE SODIUM 40 MG VIAL IV PUSH SCH (10:14)
[2017-04-19] MEDS: methylPREDNISolone SOD SUCC 125 MG/2 ML VIAL IV PUSH SCH ×3 (10:14→19:32)
[2017-04-19] MEDS: CEFEPIME INJ 2,000 MG in SODIUM CHLORIDE 0.9% INJ 100 ML IV SCH ×2 (10:14→19:31)
[2017-04-19] MEDS: SODIUM CHLORIDE 0.9% FLUSH 10 ML FLUSH IV FLUSH SCH ×2 (10:15→19:35)
[2017-04-19] MEDS: PROPOFOL 1000 MG/100 ML INJ 100 ML IV PRN ×3 (10:17→20:27)
--- NOTE | 2017-04-19 10:55 | HHI.HP ---
[facility] Service Critical Care Medicine Primary Care Physician Unknown Admission Diagnosis Respiratory Failure Diagnosis: (1) Acute hypoxemic respiratory failure Diagnosis: Principal (2) Acute metabolic encephalopathy Diagnosis: Principal (3) Pneumonia Diagnosis: Principal (4) COPD with acute exacerbation Diagnosis: Principal (5) Diabetes Diagnosis: Secondary (6) Hypertension Diagnosis: Secondary (7) Acute on chronic kidney failure Diagnosis: Secondary Chief Complaint: Unresponsive Respiratory failure Travel History International Travel<30 Days: No Contact w/Intl Traveler <30 Da: No Traveled to Known Affected Are: No Sepsis Criteria SIRS Criteria (2 or more): Temp > 100.9 or < 96.8, WBC > 76262, < 4000 or > 10 % bands Sepsis Criteria (SIRS+source): Infect source susp/known Criteria Outcome: Meets sepsis criteria History of Present Illness The patient is an 82 year old female past with past medical history significant for hypertension, atrial fibrillation, diabetes mellitus, obesity, hypothyroidism, hyperlipidemia, diabetic neuropathy, who was seen in ED 3 days ago bronchospasm. She has COPD/Asthma and restrictive lung disease related to her obesity. Patient was treated for reactive airway disease, given breathing treatments and was discharged on as needed inhalers. Patient was brought in today by her as she was having shortness of breath and on the way to the ED when she slumped over in the car. In the emergency department she showed agonal breathing, she was intubated for airway protection emergently. Patient was given Solu-Medrol and breathing treatments and was placed on the mechanical ventilation. Chest x-ray showed bilateral infiltrates concerning for pneumonia. CT of the head was negative. I evaluated the patient in the ICU. She is on minimal sedation and mild attempts to wake up and intermittently tries to follows commands. She still on high oxygen requirement FiO2 is 60% with a PEEP of 5. I have increased the PEEP to 10. I have started the patient on scheduled IV Solu-Medrol, DuoNeb breathing treatments, cefepime and azithromycin for probable pneumonia. Review of Systems ROS Limitations: Intubated, Unresponsive Past Family Social History Allergies: Coded Allergies: celecoxib (Unverified Allergy, Severe, SYNCOPE, 04/16/17) Past Medical History Hypertension Atrial fibrillation Diabetes type 2 insulin-requiring Hypothyroidism Hyperlipidemia Neuropathy diabetic Past Surgical History Total thyroidectomy in 2010 secondary to thyroid cancer History of partial small bowel resection Cholecystectomy Reported Medications Proair Hfa 8.5 GM Inh (Albuterol Sulfate) 90 Mcg/Act Aer 2 Puff INH Q4-6H PRN Oxygen tank (Oxygen) 1 Ea Tank 2 Liter IGLESIA.CANULA CONTINUOUS Metoprolol Tartrate 50 Mg Tab 50 Mg PO BID Lantus Solostar Pen Inj (Insulin Glargine) 300 Unit/3 Ml Pen 22 Units SQ HS Vitamin D (Cholecalciferol) 400 Unit Cap 400 Units PO BID Multivitamin Gummies Adul (Multiple Vitamins W/ Minerals) 1 Chw Chw 1 Chew PO BID Eliquis (Apixaban) 2.5 Mg Tab 2.5 Mg PO BID Calcitriol 0.25 Mcg Cap 0.25 Mcg PO DAILY Omeprazole 20 Mg Tab 20 Mg PO BID Gabapentin 100 Mg Cap 100 Mg PO BID Lisinopril 40 Mg Tab 40 Mg PO DAILY Atorvastatin (Atorvastatin Calcium) 20 Mg Tab 20 Mg PO HS Levothyroxine (Levothyroxine Sodium) 125 Mcg Tab 125 Mcg PO DAILY Diltiazem ER 24 HR 300 Mg Lexy 300 Mg PO DAILY Active Ordered Medications Reviewed Family History Unable to obtain as patient is intubated Social History Never smoked Occasional alcohol Physical Exam Vital Signs Vital Signs Date Time Temp Pulse Resp B/P (MAP) Pulse Ox O2 Delivery O2 Flow Rate FiO2 04/19/17 09:25 100 50 04/19/17 08:23 04/19/17 07:30 93 50 04/19/17 07:20 52 14 71/41 (51) 100 Ventilator 04/19/17 07:13 52 14 72/47 (55) 100 Ventilator 04/19/17 07:06 73/47 (56) 04/19/17 07:00 55 14 70/44 (53) 100 Ventilator 100 04/19/17 06:59 100 Ventilator 04/19/17 06:57 100 Ventilator 100 04/19/17 06:50 14 100 Ventilator 04/19/17 06:46 96.9 75 8 184/84 (117) 75 04/19/17 06:25 100 100 Physical Exam GEN: Patient is intubated sedated on the vent requiring 60% FiO2 Head is normocephalic atraumatic. ENT: Orotracheally intubated, oral cavity is dry Neck: No nuchal rigidity. No thyromegaly. Cardiovascular: Regular rate and rhythm without murmurs, gallops, or rubs. Lungs: Decreased breath sounds bilaterally with few scattered wheezes Abdomen: Abdomen soft nontender. No guarding, rebound, or rigidity. Extremities: No clubbing, cyanosis, or edema. Neurologic: Intubated sedated. Moving extremities purposefully intermittently follows commands. Laboratory Laboratory Tests Test 04/19/17 06:15 04/19/17 07:00 White Blood Count 13.1 Red Blood Count 3.03 Hemoglobin 8.9 Hematocrit 28.6 Mean Corpuscular Volume 94.4 Mean Corpuscular Hemoglobin 29.5 Mean Corpuscular Hemoglobin Concent 31.2 Red Cell Distribution Width 14.6 Platelet Count 241 Mean Platelet Volume 8.9 Neutrophils (%) (Auto) 66.0 Lymphocytes (%) (Auto) 22.2 Monocytes (%) (Auto) 7.7 Eosinophils (%) (Auto) 3.3 Basophils (%) (Auto) 0.8 Neutrophils # (Auto) 8.6 Lymphocytes # (Auto) 2.9 Monocytes # (Auto) 1.0 Eosinophils # (Auto) 0.4 Basophils # (Auto) 0.1 CBC Comment DIFF FINAL Differential Comment Prothrombin Time 10.1 Prothromb Time International Ratio 0.9 Activated Partial Thromboplast Time 24.5 Urine Color YELLOW Urine Turbidity CLOUDY Urine pH 5.5 Urine Specific [place] 1.012 Urine Protein 100 Urine Glucose (UA) NEG Urine Ketones NEG Urine Occult Blood TRACE Urine Nitrite NEG Urine Bilirubin NEG Urine Urobilinogen LESS THAN 2.0 Urine Leukocyte Esterase NEG Urine RBC 1 Urine WBC 1 Urine Squamous Epithelial Cells 1 Urine Amorphous Sediment OCC Urine Bacteria MANY Microscopic Urinalysis Comment CULTURE INDICATED Blood Urea Nitrogen 31 Creatinine 2.94 Random Glucose 263 Total Protein 7.8 Albumin 3.2 Calcium Level 8.8 Magnesium Level 2.5 Alkaline Phosphatase 120 Aspartate Amino Transf (AST/SGOT) 12 Alanine Aminotransferase (ALT/SGPT) 18 Total Bilirubin 0.5 Sodium Level 136 Potassium Level 4.9 Chloride Level 101 Carbon Dioxide Level 27.2 Anion Gap 8 Estimat Glomerular Filtration Rate 19 Total Creatine Kinase 93 Troponin I LESS THAN 0.02 B-Type Natriuretic Peptide 274 Lipase 269 Blood Gas Puncture Site RT RADIAL Blood Gas Patient Temperature 98.6 Blood Gas HCO3 25 Blood Gas Base Excess 0.1 Blood Gas Oxygen Saturation 98 Arterial Blood pH 7.35 Arterial Blood Partial Pressure CO2 47 Arterial Blood Partial Pressure O2 302 Arterial Blood Oxygen Content 14.0 Arterial Blood Carboxyhemoglobin 2.1 Arterial Blood Methemoglobin 0.3 Blood Gas Hemoglobin 9.6 Oxygen Delivery Device VENTILATOR Blood Gas Ventilator Setting AC/14/500/PEEP5 Blood Gas Inspired Oxygen 100 Date/Time Source Procedure Growth Status 04/19/17 06:15 Urine Clean Catch Urine Culture Pending Received Result Diagram: 04/19/1715 04/19/1715 Imaging Chest x-ray shows bilateral infiltrates predominantly right upper lobe and left lower lobe CT of the head no acute findings Septic Shock Reassessment Heart: Regular rate and rhythm Lungs: Course Skin: Warm Peripheral Pulses: Weak Right Radial Weak Left Radial Capillary Refill: <2 seconds Caprini VTE Risk Assessment Caprini VTE Risk Assessment: Mod/High Risk (score >= 2) Caprini Risk Assessment Model Point Value = 1 Point Value = 2 Point Value = 3 Point Value = 5 Age 41-60 Minor surgery BMI > 25 kg/m2 Swollen legs Varicose veins or History of unexplained or recurrent spontaneous Oral contraceptives or hormone replacement Sepsis (< 1 month) Serious lung disease, including pneumonia (< 1 month) Abnormal pulmonary function Acute myocardial infarction Congestive heart failure (< 1 month) History of inflammatory bowel disease Medical patient at bed rest Age 61-74 Arthroscopic surgery Major open surgery (> 45 min) Laparoscopic surgery (> 45 min) Malignancy Confined to bed (> 72 hours) Immobilizing plaster cast Central venous access Age >= 75 History of VTE Family history of VTE Factor V Leiden Prothrombin [id number] Lupus anticoagulant Anticardiolipin antibodies Elevated serum homocysteine Heparin-induced thrombocytopenia Other congenital or acquired thrombophilia Stroke (< 1 month) Elective arthroplasty Hip, pelvis, or leg fracture Acute spinal cord injury (< 1 month) Prophylaxis Regimen Total Risk Factor Score Risk Level Prophylaxis Regimen 0-1 Low Early ambulation 2 Moderate Order ONE of the following: *Sequential Compression Device (SCD) *Heparin 5000 units SQ BID 3-4 Higher Order ONE of the following medications: *Heparin 5000 units SQ TID *Enoxaparin/Lovenox 40 mg SQ daily (WT < 150 kg, CrCl > 30 mL/min) *Enoxaparin/Lovenox 30 mg SQ daily (WT < 150 kg, CrCl > 10-29 mL/min) *Enoxaparin/Lovenox 30 mg SQ BID (WT < 150 kg, CrCl > 30 mL/min) AND/OR *Sequential Compression Device (SCD) 5 or more Highest Order ONE of the following medications: *Heparin 5000 units SQ TID (Preferred with Epidurals) *Enoxaparin/Lovenox 40 mg SQ daily (WT < 150 kg, CrCl > 30 mL/min) *Enoxaparin/Lovenox 30 mg SQ daily (WT < 150 kg, CrCl > 10-29 mL/min) *Enoxaparin/Lovenox 30 mg SQ BID (WT < 150 kg, CrCl > 30 mL/min) AND *Sequential Compression Device (SCD) Assessment and Plan Assessment and Plan NEURO: Acute metabolic encephalopathy - Propofol and fentanyl for sedation and vent synchrony - Daily sedation vacation starting 24 hours - Altered mentation most likely secondary to hypoxia and hypercapnia along with sepsis - CT of the head negative for acute findings, hold gabapentin RESP: Acute respiratory failure Pneumonia COPD with exacerbation Restrictive lung disease - ACV 16/500/60% PEEP 10 - DuoNeb every 4 hours scheduled and when necessary - IV Solu-Medrol 60 mg every 6 hours - Broad-spectrum antibiotics with cefepime and azithromycin CV: Chronic A. fib - Normal saline IV fluids 3 L bolus and 84 mL per hour - Rate controlled with metoprolol home dose, hold Diltiazem until more stable - Continue Eliquis GI: - Nothing by mouth, IV Protonix : Acute on chronic kidney disease - IV fluid resuscitation as above, consult nephrology - Monitor renal function closely. Nelson catheter. ID: Severe sepsis Pneumonia - Send blood sputum and urine culture - Started on empiric cefepime and azithromycin HEME: - Monitor CBC, CMP, INR -Continue Eliquis ENDO: Hypothyroidism Type 2 diabetes - Continue levothyroxine, sliding-scale insulin - Hold long-acting insulin while nothing by mouth PROPH: - Bilateral lower extremity SCDs. Eliquis, Protonix LINES: - Utilize peripheral IVs, central line if needed CC time 55 min Code Status Full Problem Qualifiers (1) Pneumonia: (2) Diabetes: Keerthi Song MD Apr 19, 2017 10:55
[2017-04-19 11:03] LABS: FREE T3 1.79 PG/ML (2.18-3.98)
--- NOTE | 2017-04-19 13:46 | EKG ---
Date Performed: 04/19/2017 Time Performed: 06:30:00 PTAGE: 82 years EKG: Sinus rhythm WITH FIRST DEGREE AV BLOCK ABNORMAL ECG PREVIOUS TRACING : 04/19/2017 06.29 DOCTOR: Mario Estrada Interpretating Date/Time 04/19/2017 13:42:33
[2017-04-19] MEDS: AZITHROMYCIN INJ 500 MG in SODIUM CHLOR 0.9% 250 ML INJ 250 ML IV SCH (13:49)
--- NOTE | 2017-04-19 14:56 | PD.CONS ---
HPI Service Nephrology Consult Requested By Dr. Song Reason for Consult Acute renal failure Primary Care Physician Unknown History of Present Illness Patient is a 82-year-old female with history of diabetes, COPD , asthma who has been having increasing shortness of breath, she has morbid obesity, she treated to the emergency department 3 days ago and has COPD exacerbation, she went home her condition did not improve and subsequently she was coming to the car when she passed out and she is now intubated in the emergency as her respirations were agonal, patient has received fluid boluses and her urine output is slow creatinine is elevated, baseline creatinine is 2.5 , family is not aware she follows with any local plant 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 I have seen her back in October of this year in the hospital Review of Systems ROS Limitations: Clinical Condition Past Family Social History Allergies: Coded Allergies: celecoxib (Unverified Allergy, Severe, SYNCOPE, 04/16/17) Past Medical History Hypertension Atrial fibrillation Diabetes type 2 insulin-requiring Hypothyroidism Hyperlipidemia Neuropathy diabetic Past Surgical History Total thyroidectomy in 2010 secondary to thyroid cancer History of partial small bowel resection Cholecystectomy Reported Medications Reported Meds & Active Scripts Active Proair Hfa 8.5 GM Inh (Albuterol Sulfate) 90 Mcg/Act Aer 2 Puff INH Q4-6H PRN 108 mcg/actuation Oxygen tank (Oxygen) 1 Ea Tank 2 Liter IGLESIA.CANULA CONTINUOUS Oxygen Concentrator Portable Gaseous 2 L/min via Nasal Cannula Continuous For 99 months Reported Metoprolol Tartrate 50 Mg Tab 50 Mg PO BID Lantus Solostar Pen Inj (Insulin Glargine) 300 Unit/3 Ml Pen 22 Units SQ HS Vitamin D (Cholecalciferol) 400 Unit Cap 400 Units PO BID Multivitamin Gummies Adul (Multiple Vitamins W/ Minerals) 1 Chw Chw 1 Chew PO BID Eliquis (Apixaban) 2.5 Mg Tab 2.5 Mg PO BID Calcitriol 0.25 Mcg Cap 0.25 Mcg PO DAILY Omeprazole 20 Mg Tab 20 Mg PO BID Gabapentin 100 Mg Cap 100 Mg PO BID Lisinopril 40 Mg Tab 40 Mg PO DAILY Atorvastatin (Atorvastatin Calcium) 20 Mg Tab 20 Mg PO HS Levothyroxine (Levothyroxine Sodium) 125 Mcg Tab 125 Mcg PO DAILY Diltiazem ER 24 HR 300 Mg Lexy 300 Mg PO DAILY Active Ordered Medications Current Medications Medications (Trade) Dose Ordered Sig/[place] Route Start Time Stop Time Status Last Admin Propofol 100 ml @ 3.6 mls/hr TITRATE PRN IV 04/19/17 08:30 04/19/17 10:17 (NS Flush) 2 ml UNSCH PRN IV FLUSH 04/19/17 08:30 (NS Flush) 2 ml BID IV FLUSH 04/19/17 09:00 04/19/17 10:15 (Duoneb Neb) 1 ampule Q6HR NEB NEB 04/19/17 10:00 04/19/17 09:23 (Duoneb Neb) 1 ampule Q2HR NEB PRN INH 04/19/17 08:30 (Peridex 0.12% Liq) 15 ml BID@08,20 MT 04/19/17 20:00 (Protonix Inj) 40 mg DAILY IV PUSH 04/19/17 09:00 04/19/17 10:14 Miscellaneous Information 1 [id number] XX 04/19/17 08:30 (Chlorhexidine 2% Cloth) 3 pack Taper DAILY@04 TOP 04/20/17 04:00 04/16/18 03:59 (Chlorhexidine 2% Cloth) 3 pack UNSCH PRN TOP 04/19/17 08:30 (SoluMEDROL INJ) 60 mg Q6H IV PUSH 04/19/17 09:00 04/19/17 10:14 Cefepime HCl 2000 mg/Sodium Chloride 100 ml @ 200 mls/hr Q12H IV 04/19/17 09:00 04/19/17 10:14 Azithromycin 500 mg/Sodium Chloride 250 ml @ 250 mls/hr Q24H IV 04/19/17 14:00 04/19/17 13:49 (Eliquis) 2.5 mg BID PO 04/19/17 21:00 (Lipitor) 20 mg HS PO 04/19/17 21:00 (Rocaltrol) 0.25 mcg DAILY PO 04/20/17 09:00 (Synthroid) 125 mcg DAILY@0600 PO 04/20/17 06:00 (Lopressor) 50 mg BID PO 04/19/17 21:00 (Vitamin D3) 400 units BID PO 04/19/17 21:00 (Flu (Quadrivalent) Vaccine Inj) 0.5 ml ONCE ONCE IM 04/20/17 10:00 04/20/17 10:01 Family History Noncontributory Social History Denies smoking or alcohol use Physical Exam Vital Signs Vital Signs Date Time Temp Pulse Resp B/P (MAP) Pulse Ox O2 Delivery O2 Flow Rate FiO2 04/19/17 14:00 60 10 137/62 (87) 97 04/19/17 13:30 61 18 133/60 (84) 97 04/19/17 13:00 56 15 125/57 (79) 99 04/19/17 12:30 65 15 150/67 (94) 99 04/19/17 12:00 97.5 66 19 151/67 (95) 99 04/19/17 11:30 69 16 158/64 (95) 98 04/19/17 11:00 69 18 151/66 (94) 99 04/19/17 10:30 69 20 136/60 (85) 98 04/19/17 10:01 67 16 133/63 (86) 99 04/19/17 10:00 67 20 99 04/19/17 09:31 66 13 128/61 (83) 98 04/19/17 09:25 100 50 04/19/17 08:23 04/19/17 07:30 93 50 04/19/17 07:20 52 14 71/41 (51) 100 Ventilator 04/19/17 07:13 52 14 72/47 (55) 100 Ventilator 04/19/17 07:06 73/47 (56) 04/19/17 07:00 55 14 70/44 (53) 100 Ventilator 100 04/19/17 06:59 100 Ventilator 04/19/17 06:57 100 Ventilator 100 04/19/17 06:50 14 100 Ventilator 04/19/17 06:46 96.9 75 8 184/84 (117) 75 04/19/17 06:25 100 100 Physical Exam GENERAL: Well-nourished, well-developed obese, intubated patient. SKIN: Warm and dry. HEAD: Normocephalic. EYES: No scleral icterus. No injection or drainage. NECK: Supple, trachea midline. No JVD or lymphadenopathy. CARDIOVASCULAR: Regular rate and rhythm without murmurs, gallops, or rubs. RESPIRATORY: Breath sounds equal bilaterally. No accessory muscle use. GASTROINTESTINAL: Abdomen soft, non-tender, nondistended. EXTREMITIES: No cyanosis, or edema. NEUROLOGICAL: Obtunded Laboratory Laboratory Tests Test 04/19/17 06:15 04/19/17 07:00 White Blood Count 13.1 Red Blood Count 3.03 Hemoglobin 8.9 Hematocrit 28.6 Mean Corpuscular Volume 94.4 Mean Corpuscular Hemoglobin 29.5 Mean Corpuscular Hemoglobin Concent 31.2 Red Cell Distribution Width 14.6 Platelet Count 241 Mean Platelet Volume 8.9 Neutrophils (%) (Auto) 66.0 Lymphocytes (%) (Auto) 22.2 Monocytes (%) (Auto) 7.7 Eosinophils (%) (Auto) 3.3 Basophils (%) (Auto) 0.8 Neutrophils # (Auto) 8.6 Lymphocytes # (Auto) 2.9 Monocytes # (Auto) 1.0 Eosinophils # (Auto) 0.4 Basophils # (Auto) 0.1 CBC Comment DIFF FINAL Differential Comment Prothrombin Time 10.1 Prothromb Time International Ratio 0.9 Activated Partial Thromboplast Time 24.5 Urine Color YELLOW Urine Turbidity CLOUDY Urine pH 5.5 Urine Specific [place] 1.012 Urine Protein 100 Urine Glucose (UA) NEG Urine Ketones NEG Urine Occult Blood TRACE Urine Nitrite NEG Urine Bilirubin NEG Urine Urobilinogen LESS THAN 2.0 Urine Leukocyte Esterase NEG Urine RBC 1 Urine WBC 1 Urine Squamous Epithelial Cells 1 Urine Amorphous Sediment OCC Urine Bacteria MANY Microscopic Urinalysis Comment CULTURE INDICATED Blood Urea Nitrogen 31 Creatinine 2.94 Random Glucose 263 Total Protein 7.8 Albumin 3.2 Calcium Level 8.8 Magnesium Level 2.5 Alkaline Phosphatase 120 Aspartate Amino Transf (AST/SGOT) 12 Alanine Aminotransferase (ALT/SGPT) 18 Total Bilirubin 0.5 Sodium Level 136 Potassium Level 4.9 Chloride Level 101 Carbon Dioxide Level 27.2 Anion Gap 8 Estimat Glomerular Filtration Rate 19 Total Creatine Kinase 93 Troponin I LESS THAN 0.02 B-Type Natriuretic Peptide 274 Lipase 269 Free Triiodothyronine (T3) pg/dL 1.79 Thyroid Stimulating Hormone 3rd Gen 3.060 Blood Gas Puncture Site RT RADIAL Blood Gas Patient Temperature 98.6 Blood Gas HCO3 25 Blood Gas Base Excess 0.1 Blood Gas Oxygen Saturation 98 Arterial Blood pH 7.35 Arterial Blood Partial Pressure CO2 47 Arterial Blood Partial Pressure O2 302 Arterial Blood Oxygen Content 14.0 Arterial Blood Carboxyhemoglobin 2.1 Arterial Blood Methemoglobin 0.3 Blood Gas Hemoglobin 9.6 Oxygen Delivery Device VENTILATOR Blood Gas Ventilator Setting AC/14/500/PEEP5 Blood Gas Inspired Oxygen 100 Date/Time Source Procedure Growth Status 04/19/17 13:10 Sputum Endotracheal Gram Stain Pending Received 04/19/17 13:10 Sputum Endotracheal Sputum Culture Pending Received 04/19/17 06:15 Urine Clean Catch Urine Culture Pending Received Result Diagram: 04/19/17 0615 04/19/17 0615 Imaging Last Impressions Head CT 04/19/17 0702 Signed Impressions: Service Date/Time: Wednesday, April 19, 2017 07:29 - CONCLUSION: 1. Cerebral white matter hypodensity characteristic of chronic microvascular ischemic disease. 2. No evidence of acute infarct, hemorrhage, mass or edema. Renato Coughlin MD Chest X-Ray 04/19/17623 Signed Impressions: Service Date/Time: Wednesday, April 19, 2017 06:34 - CONCLUSION: 1. Interval placement of endotracheal and nasogastric tubes which are in good position. 2. Increasing airspace disease especially within the right upper lobe. Renato Coughlin MD Assessment and Plan Problem List: (1) Acute on chronic renal insufficiency ICD Codes: N28.9 - Disorder of kidney and ureter, unspecified; N18.9 - Chronic kidney disease, unspecified Status: Acute Plan: Patient is in acute renal failure and had chronic kidney disease I will first maintain her on IV fluids normal saline at 75 cc an hour Check urine sodium and creatinine ratio Avoid nephrotoxin Follow BMP (2) Hypertension ICD Codes: I10 - Hypertension Status: Acute Plan: Blood pressure was low requiring fluid bolus (3) Diabetes ICD Codes: E11.9 - Type 2 diabetes mellitus without complications Status: Acute Plan: Continue to monitor (4) COPD with acute exacerbation ICD Codes: J44.1 - Chronic obstructive pulmonary disease with (acute) exacerbation Plan: On ventilator Problem Qualifiers (1) Diabetes: Tonja Grewal MD Apr 19, 2017 14:56
[2017-04-19] MEDS: SODIUM CHLOR 0.9% 1000 ML INJ 1,000 ML IV SCH (15:00)
[2017-04-19] MEDS: INSULIN ASPART SUPPLEMENTAL SCALE SQ SCH ×2 (16:42→19:33)
[2017-04-19] MEDS: ATORVASTATIN 20 MG TAB PO SCH (19:32)
[2017-04-19] MEDS: APIXABAN 2.5 MG TABLET PO SCH (19:32)
[2017-04-19] MEDS: METOPROLOL TARTRATE 50 MG TAB PO SCH (19:32)
[2017-04-19] MEDS: CHOLECALCIFEROL (VIT D3) 400 UNIT TAB PO SCH (19:32)
[2017-04-19] MEDS: CHLORHEXIDINE 0.12% (ORAL KIT) 15 ML CUP MT SCH (19:33)
[2017-04-20] VITALS (18 sets, daily range): BP systolic 143–190; BP diastolic 65–80; PULSE 63–108; RESP 0–28; TEMP 98.3–100.1; O2SAT 98–100
[2017-04-20] MEDS: INSULIN ASPART SUPPLEMENTAL SCALE SQ SCH ×6 (01:00→19:32)
[2017-04-20] MEDS: RESP: ALBUTEROL 2.5 MG/IPRATROPIUM 0.5 MG NEB (SCH) NEB ×4 (02:49→19:57)
[2017-04-20] MEDS: methylPREDNISolone SOD SUCC 125 MG/2 ML VIAL IV PUSH SCH ×4 (03:13→19:31)
[2017-04-20] MEDS: PROPOFOL 1000 MG/100 ML INJ 100 ML IV PRN ×5 (03:14→20:35)
[2017-04-20] MEDS: SODIUM CHLOR 0.9% 1000 ML INJ 1,000 ML IV SCH ×2 (03:23→17:57)
[2017-04-20] MEDS: CHLORHEXIDINE GLUCONATE 2 % 1 PACK (2 CLOTHS) TOP SCH (04:00)
[2017-04-20] MEDS: LEVOTHYROXINE SODIUM 125 MCG TAB PO SCH (05:26)
[2017-04-20] MEDS: CHLORHEXIDINE 0.12% (ORAL KIT) 15 ML CUP MT SCH ×3 (07:52→20:00)
[2017-04-20] MEDS: SODIUM CHLORIDE 0.9% FLUSH 10 ML FLUSH IV FLUSH SCH ×2 (07:52→19:35)
[2017-04-20] MEDS: CEFEPIME INJ 2,000 MG in SODIUM CHLORIDE 0.9% INJ 100 ML IV SCH (07:53)
[2017-04-20] MEDS: METOPROLOL TARTRATE 50 MG TAB PO SCH ×2 (07:54→19:30)
[2017-04-20] MEDS: PANTOPRAZOLE SODIUM 40 MG VIAL IV PUSH SCH (07:54)
[2017-04-20] MEDS: APIXABAN 2.5 MG TABLET PO SCH ×2 (07:54→19:32)
[2017-04-20] MEDS: CHOLECALCIFEROL (VIT D3) 400 UNIT TAB PO SCH ×2 (07:54→19:32)
[2017-04-20 08:29] LABS: ANION GAP 10 MEQ/L (5-15); AST (GOT) 16 U/L (15-37); BICARBONATE 21.8 MEQ/L (21.0-32.0); BLOOD UREA NITROGEN 35 MG/DL (7-18); CHLORIDE 105 MEQ/L (98-107); GLOMERULAR FILTRATION RATE 18 ML/MIN (>89); POTASSIUM 4.4 MEQ/L (3.5-5.1); SODIUM (NA) 137 MEQ/L (136-145)
[2017-04-20 08:30] LABS: ALT (GPT) 16 U/L (10-53)
[2017-04-20 08:32] LABS: ALKALINE PHOSPHATASE 109 U/L (45-117); TOTAL BILIRUBIN ADULT 0.5 MG/DL (0.2-1.0)
[2017-04-20] MEDS: CALCITRIOL 0.25 MCG CAP PO SCH (09:52)
[2017-04-20] MEDS ORDERED: INFLUENZA VIRUS VACCINE (QUADRIVALENT) 0.5 ML SYR IM ONE (10:00)
[2017-04-20] MEDS ORDERED: BUMETANIDE INJ 1 MG/4 ML VIAL ONE (11:08)
--- NOTE | 2017-04-20 12:03 | HHI.CCPN ---
Subjective Remarks/Hospital Course The patient is an 82 year old female past with past medical history significant for hypertension, atrial fibrillation, diabetes mellitus, obesity, hypothyroidism, hyperlipidemia, diabetic neuropathy, who was seen in ED 3 days ago bronchospasm. She has COPD/Asthma and restrictive lung disease related to her obesity. Patient was treated for reactive airway disease, given breathing treatments and was discharged on as needed inhalers. Patient was brought in today by her as she was having shortness of breath and on the way to the ED when she slumped over in the car. In the emergency department she showed agonal breathing, she was intubated for airway protection emergently. Patient was given Solu-Medrol and breathing treatments and was placed on the mechanical ventilation. Chest x-ray showed bilateral infiltrates concerning for pneumonia. CT of the head was negative. I evaluated the patient in the ICU. She is on minimal sedation and mild attempts to wake up and intermittently tries to follows commands. She still on high oxygen requirement FiO2 is 60% with a PEEP of 5. I have increased the PEEP to 10. I have started the patient on scheduled IV Solu-Medrol, DuoNeb breathing treatments, cefepime and azithromycin for probable pneumonia. Remains intubated, off sedation following commands. Currently FiO2 had been weaned to 40%. Urine output 950 ml since admission. Start SBT, Bumex 1 mg IV x1. Objective Vital Signs Date Time Temp Pulse Resp B/P (MAP) Pulse Ox O2 Delivery O2 Flow Rate FiO2 04/20/17 10:00 90 04/20/17 09:01 100 40 04/20/17 08:00 99.6 14 143/65 (91) 04/19/17 07:20 Ventilator Intake and Output 04/20/17 04/20/17 04/21/17 08:00 16:00 00:00 Intake Total 200 ml Output Total 700 ml Balance -500 ml Result Diagram: 04/19/17 0615 04/20/17 0733 Imaging Chest x-ray shows bilateral infiltrates predominantly right upper lobe and left lower lobe CT of the head no acute findings Objective Remarks GEN: Patient is intubated sedated on the vent requiring 40% FiO2 Head is normocephalic atraumatic. ENT: Orotracheally intubated, oral cavity is dry Neck: No nuchal rigidity. No thyromegaly. Cardiovascular: Regular rate and rhythm without murmurs, gallops, or rubs. Lungs: Decreased breath sounds bilaterally with few scattered wheezes Abdomen: Abdomen soft nontender. No guarding, rebound, or rigidity. Extremities: No clubbing, cyanosis, or edema. Neurologic: Intubated. Moving extremities purposefully, following commands. A/P Assessment and Plan NEURO: Acute metabolic encephalopathy - Propofol and fentanyl for sedation and vent synchrony - Daily sedation vacation starting 24 hours - Altered mentation most likely secondary to hypoxia and hypercapnia along with sepsis - CT of the head negative for acute findings, hold gabapentin RESP: Acute respiratory failure Pneumonia COPD with exacerbation Restrictive lung disease - ACV 16/500/40% PEEP 10. Reduce PEEP to 8 and start SBT - DuoNeb every 4 hours scheduled and when necessary - IV Solu-Medrol 60 mg every 6 hours - Broad-spectrum antibiotics with cefepime and azithromycin CV: Chronic A. fib - s/p Normal saline IV fluids 3 L bolus and 84 mL per hour - KVO IVF. and Give 1 mg IV 1 - Rate controlled with metoprolol home dose, hold Diltiazem until more stable - Continue Eliquis GI: - Nothing by mouth, IV Protonix - Start tube feeding if not extubated : Acute on chronic kidney disease - IV fluid resuscitation as above, consult nephrology -Dr. Grewal - Monitor renal function closely. Nelson catheter. ID: Severe sepsis Pneumonia - Send blood sputum and urine culture - Started on empiric cefepime and azithromycin HEME: - Monitor CBC, CMP, INR - Continue Eliquis ENDO: Hypothyroidism Type 2 diabetes - Continue levothyroxine, sliding-scale insulin - Hold long-acting insulin while nothing by mouth PROPH: - Bilateral lower extremity SCDs. Eliquis, Protonix LINES: - Utilize peripheral IVs, central line if needed Level 3 Keerthi Song MD Apr 20, 2017 12:03
[2017-04-20] MEDS: RESP: ALBUTEROL 2.5 MG/IPRATROPIUM 0.5 MG NEB (PRN) INH (12:34)
[2017-04-20] MEDS: AZITHROMYCIN INJ 500 MG in SODIUM CHLOR 0.9% 250 ML INJ 250 ML IV SCH (12:35)
[2017-04-20] MEDS ORDERED: BUMETANIDE INJ 1 MG/4 ML VIAL IV PUSH ONE (13:15)
--- NOTE | 2017-04-20 13:23 | RADRPT ---
EXAM DATE/TIME: 04/20/2017 11:55 [facility] COMPARISON: CHEST SINGLE AP, April 19, 2017, 6:34. INDICATIONS : Respiratory disease MEDICAL HISTORY : Hypercholesterolemia. Hypertension. Diabetes mellitus type 2. Atrial fibrillation. SURGICAL HISTORY : Colon resection. Cholecystectomy. ENCOUNTER: Subsequent ACUITY: 2 days PAIN SCORE: Non-responsive. LOCATION: chest FINDINGS: An endotracheal tube has its tip 3 cm above the morgan. A nasogastric tube has its tip below diaphra gm. Pulmonary infiltrates are noted bilaterally and are worse on the right than the left consistent with asymmetric pulmonary edema versus pneumonia. Clinical correlation is recommended. The heart is stable. Degenerative changes are noted throughout the thoracic spine. CONCLUSION: 1. Bilateral pulmonary infiltrates (right worse than the left) consistent with asymmetric pulmonary edema versus pneumonia. Clinical correlation is recommended. 2. Stable mild cardiomegaly. 3. Endotracheal tube and nasogastric tubes are in good positions. 4. Degenerative changes throughout the thoracic spine. Logan Cochran MD on April 20, 2017 at 12:41 Board Certified Radiologist. This report was verified electronically.
--- NOTE | 2017-04-20 14:16 | HHI.NPPN ---
Subjective History of Present Illness Patient is a 82-year-old with sepsis, COPD, intubation, diabetes, acute renal failure and chronic kidney disease Objective Data Data 04/20/17 04/21/17 19:00 07:00 Intake Total 195 ml Balance 195 ml Intake IV Total 195 ml Vital Signs Date Time Temp Pulse Resp B/P (MAP) Pulse Ox O2 Delivery O2 Flow Rate FiO2 04/20/17 12:50 40 04/20/17 12:47 100 40 04/20/17 10:00 90 04/20/17 09:01 100 40 04/20/17 08:00 40 04/20/17 08:00 95 04/20/17 08:00 99.6 95 14 143/65 (91) 100 04/20/17 06:00 83 04/20/17 04:00 98.4 86 0 145/65 (91) 98 04/20/17 04:00 40 04/20/17 04:00 84 04/20/17 02:00 91 04/20/17 00:42 98 40 04/20/17 00:00 71 04/20/17 00:00 40 04/20/17 00:00 98.7 72 14 158/69 (98) 99 04/19/17 22:00 63 04/19/17 21:02 99 40 04/19/17 20:00 40 04/19/17 20:00 72 04/19/17 20:00 99.0 76 20 131/87 (102) 97 04/19/17 19:40 98 40 04/19/17 18:30 61 14 118/55 (76) 99 04/19/17 18:00 66 0 147/65 (92) 99 04/19/17 17:30 74 17 160/71 (100) 100 04/19/17 17:00 70 18 155/70 (98) 99 04/19/17 16:55 99 50 04/19/17 16:30 66 22 147/64 (91) 99 04/19/17 16:00 50 04/19/17 16:00 98.1 62 14 138/63 (88) 98 04/19/17 15:30 60 22 136/60 (85) 97 04/19/17 15:00 60 14 114/57 (76) 100 -: 04/19/17 0615 04/20/17 0733 Microbiology 04/19/17 Aerobic Blood Culture - Preliminary, Resulted NO GROWTH IN 1 DAY 04/19/17 Anaerobic Blood Culture - Preliminary, Resulted NO GROWTH IN 1 DAY 04/19/17 Aerobic Blood Culture - Preliminary, Resulted NO GROWTH IN 1 DAY 04/19/17 Anaerobic Blood Culture - Preliminary, Resulted NO GROWTH IN 1 DAY Physical Exam General Appearance: Well Developed, Obese Neck Neck Exam: Neck Supple Pulmonary Resp Exam: Decreased Bases Cardiology CV Exam: Regular Gastrointestinal/Abdomen GI Exam: Soft, Non-Tender, Bowel Sounds Present Extremeties Extremities Exam: No Edema Assessment/Plan Problem List: (1) Acute on chronic renal insufficiency ICD Codes: N28.9 - Disorder of kidney and ureter, unspecified; N18.9 - Chronic kidney disease, unspecified Status: Acute Plan: Patient is in acute renal failure and had chronic kidney disease Has acute tubular necrosis urine output is better after fluid resuscitation wanted her creatinine was 2.9 Avoid nephrotoxin Follow BMP (2) Hypertension ICD Codes: I10 - Hypertension Status: Acute Plan: Blood pressure was low requiring fluid bolus (3) Diabetes ICD Codes: E11.9 - Type 2 diabetes mellitus without complications Status: Acute Plan: Continue to monitor (4) COPD with acute exacerbation ICD Codes: J44.1 - Chronic obstructive pulmonary disease with (acute) exacerbation Plan: On ventilator Problem Qualifiers (1) Diabetes: Tonja Grewal MD Apr 20, 2017 14:16
[2017-04-20] MEDS ORDERED: MIDAZOLAM 100 MG/100 ML INJ 100 ML IV PRN (14:30)
[2017-04-20] MEDS ORDERED: fentaNYL DRIP 250 ML IV PRN (14:30)
--- NOTE | 2017-04-20 16:00 | RADRPT ---
EXAM DATE/TIME: 04/20/2017 15:07 [facility] COMPARISON: CT ABDOMEN & PELVIS W/O CONTRAST, September 06, 2016, 4:41. INDICATIONS : Increased BUN/creatinine. MEDICAL HISTORY : Hypercholesterolemia. Arthritis. Left cataract. Afib. HTN. Asthma. Sleep apnea. Dyspnea. Gout. Diab etes. ETOH abuse. Anticoagulant therapy, Eliquis. SURGICAL HISTORY : Thyroidectomy. Cholecystectomy. ENCOUNTER: Initial ACUITY: 1 day PAIN SCORE: Nonresponsive. LOCATION: Bilateral flank MEASUREMENTS: RIGHT KIDNEY: 9.4 x 5.1 x 4.9 cm LEFT KIDNEY: 10.5 x 5.4 x 5.8 cm FINDINGS: RIGHT KIDNEY: Renal cortex is normal in thickness and echotexture. No hydronephrosis, stone, or mass. There is tr john paul fluid adjacent to the lower pole. LEFT KIDNEY: Renal cortex is normal in thickness and echotexture. No hydronephrosis or mass. There is an 8mm non obstructing left mid renal stone. BLADDER: Not visualized. Nelson catheter is present. CONCLUSION: 1. There is no hydronephrosis. 2. Stable 8mm nonobstructing left renal stone. Duncan Avery MD on April 20, 2017 at 15:57 Board Certified Radiologist. This report was verified electronically.
[2017-04-20] MEDS: ATORVASTATIN 20 MG TAB PO SCH (19:32)
[2017-04-21] VITALS (19 sets, daily range): BP systolic 100–198; BP diastolic 54–82; PULSE 49–105; RESP 14–30; TEMP 97.9–98.8; O2SAT 95–100
[2017-04-21] MEDS: INSULIN ASPART SUPPLEMENTAL SCALE SQ SCH ×6 (01:00→21:00)
[2017-04-21] MEDS: methylPREDNISolone SOD SUCC 125 MG/2 ML VIAL IV PUSH SCH ×4 (02:09→21:19)
[2017-04-21] MEDS: PROPOFOL 1000 MG/100 ML INJ 100 ML IV PRN (02:09)
[2017-04-21] MEDS: RESP: ALBUTEROL 2.5 MG/IPRATROPIUM 0.5 MG NEB (SCH) NEB ×4 (02:23→21:12)
[2017-04-21] MEDS: CHLORHEXIDINE GLUCONATE 2 % 1 PACK (2 CLOTHS) TOP SCH (04:00)
[2017-04-21] MEDS: LEVOTHYROXINE SODIUM 125 MCG TAB PO SCH (06:00)
[2017-04-21] MEDS: SODIUM CHLOR 0.9% 1000 ML INJ 1,000 ML IV SCH ×2 (06:03→21:20)
--- NOTE | 2017-04-21 06:18 | RADRPT ---
EXAM DATE/TIME: 04/21/2017 04:31 [facility] COMPARISON: CHEST SINGLE AP, April 20, 2017, 11:55. INDICATIONS : Evaluate for respiratory disease. MEDICAL HISTORY : Hypercholesterolemia. Hypertension. Diabetes mellitus type 2. Atrial fibrillation. SURGICAL HISTORY : Colon resection. Cholecystectomy. ENCOUNTER: Initial ACUITY: 1 day PAIN SCORE: Non-responsive. LOCATION: chest FINDINGS: A single view of the chest demonstrates cardiomegaly with diffuse right lung density and left basilar density. Endotracheal tube and nasogastric tube are stable in position. Osseous structures are intac t. CONCLUSION: 1. Cardiomegaly with right lung density and left basilar density, stable. Weston Mora MD on April 21, 2017 at 6:16 Board Certified Radiologist. This report was verified electronically.
[2017-04-21] MEDS: APIXABAN 2.5 MG TABLET PO SCH ×2 (07:32→21:21)
[2017-04-21] MEDS: CALCITRIOL 0.25 MCG CAP PO SCH (07:32)
[2017-04-21] MEDS: METOPROLOL TARTRATE 50 MG TAB PO SCH ×2 (07:32→21:21)
[2017-04-21] MEDS: CHOLECALCIFEROL (VIT D3) 400 UNIT TAB PO SCH ×2 (07:32→21:21)
[2017-04-21 07:33] LABS: AUTOMATED NEUTROPHIL # 10.2 TH/MM3 (1.8-7.7); BASOPHIL % 0.3 % (0.0-2.0); HEMATOCRIT 28.1 % (35.0-46.0); HEMO FLAGS DIFF FINAL; LYMPHOCYTE # 0.6 TH/MM3 (1.0-4.8); MEAN CELL VOLUME 93.1 FL (80.0-100.0); MEAN CORPUSCULAR HEMOGLOBIN 29.7 PG (27.0-34.0); MEAN CORPUSCULAR HGB CONC 31.9 % (32.0-36.0); NEUT % 88.7 % (16.0-70.0); PLATELET COUNT 191 TH/MM3 (150-450); RED BLOOD COUNT 3.02 MIL/MM3 (4.00-5.30); RED CELL DISTRIBUTION WIDTH 15.3 % (11.6-17.2); WHITE BLOOD COUNT 11.5 TH/MM3 (4.0-11.0)
[2017-04-21] MEDS: CEFEPIME INJ 2,000 MG in SODIUM CHLORIDE 0.9% INJ 100 ML IV SCH (07:33)
[2017-04-21] MEDS: SODIUM CHLORIDE 0.9% FLUSH 10 ML FLUSH IV FLUSH SCH ×2 (07:34→21:19)
[2017-04-21] MEDS: PANTOPRAZOLE SODIUM 40 MG VIAL IV PUSH SCH (07:34)
[2017-04-21] MEDS: CHLORHEXIDINE 0.12% (ORAL KIT) 15 ML CUP MT SCH ×4 (07:35→21:20)
[2017-04-21 08:12] LABS: ALT (GPT) 16 U/L (10-53); ANION GAP 12 MEQ/L (5-15); AST (GOT) 15 U/L (15-37); BICARBONATE 21.5 MEQ/L (21.0-32.0); BLOOD UREA NITROGEN 41 MG/DL (7-18); CHLORIDE 107 MEQ/L (98-107); GLOMERULAR FILTRATION RATE 17 ML/MIN (>89); MAGNESIUM 2.1 MG/DL (1.5-2.5); POTASSIUM 3.8 MEQ/L (3.5-5.1); SODIUM (NA) 140 MEQ/L (136-145)
[2017-04-21 08:14] LABS: ALKALINE PHOSPHATASE 101 U/L (45-117); TOTAL BILIRUBIN ADULT 0.4 MG/DL (0.2-1.0)
[2017-04-21] MEDS: INSULIN DETEMIR 100 UNITS/ML VIAL SQ SCH ×2 (11:30→21:18)
[2017-04-21] MEDS: hydrALAZINE HCL 20 MG/ML VIAL IV PUSH PRN ×3 (11:56→22:18)
--- NOTE | 2017-04-21 12:21 | HHI.NPPN ---
Subjective History of Present Illness Patient is a 82-year-old with sepsis, COPD, intubation, diabetes, acute renal failure and chronic kidney disease Additional Remarks extubated Objective Data Data 04/21/17 04/22/17 19:00 07:00 Intake Total 100 ml Balance 100 ml Intake IV Total 100 ml Vital Signs Date Time Temp Pulse Resp B/P (MAP) Pulse Ox O2 Delivery O2 Flow Rate FiO2 04/21/17 12:00 94 04/21/17 12:00 98.1 94 21 198/82 (120) 100 04/21/17 10:00 95 04/21/17 09:20 99 Nasal Cannula 4 36 04/21/17 08:21 99 40 04/21/17 08:00 97.9 74 15 139/62 (87) 100 04/21/17 08:00 40 04/21/17 08:00 74 04/21/17 06:00 93 04/21/17 04:00 58 04/21/17 04:00 98.0 58 14 130/59 (82) 99 04/21/17 04:00 40 04/21/17 03:10 99 40 04/21/17 02:00 49 04/21/17 00:25 98 40 04/21/17 00:00 40 04/21/17 00:00 98.7 61 14 100/54 (69) 99 04/21/17 00:00 55 04/20/17 22:00 63 04/20/17 21:40 100 40 04/20/17 20:00 98.3 92 26 165/72 (103) 100 04/20/17 20:00 40 04/20/17 20:00 86 04/20/17 19:57 100 40 04/20/17 18:00 97 04/20/17 16:16 99 40 04/20/17 16:00 94 04/20/17 16:00 100.1 94 18 176/74 (108) 100 04/20/17 16:00 40 04/20/17 14:00 99 04/20/17 12:50 40 04/20/17 12:47 100 40 -: 04/21/17 0634 04/21/17 0634 Physical Exam General Appearance: Well Developed, Obese Neck Neck Exam: Neck Supple Pulmonary Resp Exam: Decreased Bases Cardiology CV Exam: Regular Gastrointestinal/Abdomen GI Exam: Soft, Non-Tender, Bowel Sounds Present Extremeties Extremities Exam: No Edema Assessment/Plan Problem List: (1) Acute on chronic renal insufficiency ICD Codes: N28.9 - Disorder of kidney and ureter, unspecified; N18.9 - Chronic kidney disease, unspecified Status: Acute Plan: Extubated Patient is in acute renal failure and had chronic kidney disease non oliguric give Bumex UOP 2.7 L Cr higher getting hydration NS AT 75 CC /HR follow BMP (2) Hypertension ICD Codes: I10 - Hypertension Status: Acute Plan: Blood pressure was low requiring fluid bolus (3) Diabetes ICD Codes: E11.9 - Type 2 diabetes mellitus without complications Status: Acute Plan: Continue to monitor (4) COPD with acute exacerbation ICD Codes: J44.1 - Chronic obstructive pulmonary disease with (acute) exacerbation Plan: extubated Problem Qualifiers (1) Diabetes: Tonja Grewal MD Apr 21, 2017 12:21
[2017-04-21] MEDS ORDERED: BUMETANIDE INJ 1 MG/4 ML VIAL ONE (13:31)
[2017-04-21] MEDS ORDERED: LORazepam 2 MG/ML VIAL ONE (13:51)
[2017-04-21] MEDS ORDERED: MORPHINE SULFATE 4 MG/ML INJ ONE (14:08)
[2017-04-21] MEDS ORDERED: LORazepam 2 MG/ML VIAL IV PUSH ONE (14:15)
[2017-04-21] MEDS ORDERED: BUMETANIDE INJ 1 MG/4 ML VIAL IV PUSH ONE (14:15)
[2017-04-21] MEDS ORDERED: MORPHINE SULFATE 2 MG/ML INJ IV PUSH ONE (14:15)
[2017-04-21] MEDS: AZITHROMYCIN INJ 500 MG in SODIUM CHLOR 0.9% 250 ML INJ 250 ML IV SCH (14:25)
--- NOTE | 2017-04-21 15:05 | HHI.CCPN ---
Subjective Remarks/Hospital Course The patient is an 82 year old female past with past medical history significant for hypertension, atrial fibrillation, diabetes mellitus, obesity, hypothyroidism, hyperlipidemia, diabetic neuropathy, who was seen in ED 3 days ago bronchospasm. She has COPD/Asthma and restrictive lung disease related to her obesity. Patient was treated for reactive airway disease, given breathing treatments and was discharged on as needed inhalers. Patient was brought in today by her as she was having shortness of breath and on the way to the ED when she slumped over in the car. In the emergency department she showed agonal breathing, she was intubated for airway protection emergently. Patient was given Solu-Medrol and breathing treatments and was placed on the mechanical ventilation. Chest x-ray showed bilateral infiltrates concerning for pneumonia. CT of the head was negative. I evaluated the patient in the ICU. She is on minimal sedation and mild attempts to wake up and intermittently tries to follows commands. She still on high oxygen requirement FiO2 is 60% with a PEEP of 5. I have increased the PEEP to 10. I have started the patient on scheduled IV Solu-Medrol, DuoNeb breathing treatments, cefepime and azithromycin for probable pneumonia. 04/20 Remains intubated, off sedation following commands. Currently FiO2 had been weaned to 40%. Urine output 950 ml since admission. Start SBT, Bumex 1 mg IV x1. Tolerating CPAP better today, Appears calm following commands. UO adequate, though creat increasing. Cultures remain negative Objective Vital Signs Date Time Temp Pulse Resp B/P (MAP) Pulse Ox O2 Delivery O2 Flow Rate FiO2 04/21/17 14:00 94 04/21/17 12:00 98.1 21 198/82 (120) 100 04/21/17 09:20 Nasal Cannula 4 36 Intake and Output 04/21/17 04/21/17 04/22/17 08:00 16:00 00:00 Intake Total 100 ml Output Total 550 ml Balance -550 ml 100 ml Result Diagram: 04/21/17 0634 04/21/17 0634 Other Results Microbiology Date/Time Source Procedure Growth Status 04/19/17 13:10 Sputum Endotracheal Gram Stain - Final Complete 04/19/17 13:10 Sputum Endotracheal Sputum Culture - Final HEAVY GROWTH NORMAL RESPIRATORY GORDON Complete 04/19/17 06:15 Urine Clean Catch Urine Culture - Final NO GROWTH Complete Imaging Chest x-ray shows bilateral infiltrates predominantly right upper lobe and left lower lobe CT of the head no acute findings Objective Remarks GEN: Patient is intubated sedated on the vent requiring 40% FiO2 Head is normocephalic atraumatic. ENT: Orotracheally intubated, oral cavity is dry Neck: No nuchal rigidity. No thyromegaly. Cardiovascular: Regular rate and rhythm without murmurs, gallops, or rubs. Lungs: Decreased breath sounds bilaterally with few scattered wheezes Abdomen: Abdomen soft nontender. No guarding, rebound, or rigidity. Extremities: No clubbing, cyanosis, or edema. Neurologic: Intubated. Moving extremities purposefully, following commands. A/P Assessment and Plan NEURO: Acute metabolic encephalopathy-resolved - Propofol and fentanyl for sedation and vent synchrony - Hold sedation for SBT. Metabolic encephalopathy resolved - CT of the head negative for acute findings, hold gabapentin RESP: Acute respiratory failure Pneumonia COPD with exacerbation Restrictive lung disease - ACV 16/500/40% PEEP 10. SBT with possible extubation - DuoNeb every 4 hours scheduled and when necessary - IV Solu-Medrol 60 mg every 6 hours- reduce to 40 every 8 - Broad-spectrum antibiotics with cefepime and azithromycin CV: Chronic A. fib - s/p Normal saline IV fluids 3 L bolus and 84 mL per hour - All IV fluids DC'd. - Rate controlled with metoprolol home dose, hold Diltiazem until more stable - Continue Eliquis GI: - Nothing by mouth, IV Protonix - Diet after extubation, if stable : Acute on chronic kidney disease - IV fluid resuscitation as above, consult nephrology -Dr. Grewal - Monitor renal function closely. Nelson catheter. - Creatinine is increased but urine output is excellent with Bumex ID: Severe sepsis Pneumonia - Blood sputum and urine culture, all negative to date - Empiric cefepime and azithromycin HEME: - Monitor CBC, CMP, INR - Continue Eliquis ENDO: Hypothyroidism Type 2 diabetes - Continue levothyroxine, sliding-scale insulin - Hold long-acting insulin while nothing by mouth PROPH: - Bilateral lower extremity SCDs, Eliquis, Protonix LINES: - Utilize peripheral IVs, central line if needed Level 3 Keerthi Song MD Apr 21, 2017 15:05
[2017-04-21] MEDS: ATORVASTATIN 20 MG TAB PO SCH (21:21)
[2017-04-22] VITALS (28 sets, daily range): BP systolic 146–208; BP diastolic 63–84; PULSE 91–111; RESP 16–37; TEMP 97.9–98.4; O2SAT 30–96
[2017-04-22] MEDS: INSULIN ASPART SUPPLEMENTAL SCALE SQ SCH ×6 (01:00→20:14)
[2017-04-22] MEDS: RESP: ALBUTEROL 2.5 MG/IPRATROPIUM 0.5 MG NEB (SCH) NEB ×4 (03:20→21:21)
[2017-04-22] MEDS: methylPREDNISolone SOD SUCC 125 MG/2 ML VIAL IV PUSH SCH ×2 (03:24→09:58)
[2017-04-22] MEDS: CHLORHEXIDINE GLUCONATE 2 % 1 PACK (2 CLOTHS) TOP SCH (03:24)
[2017-04-22] MEDS: LEVOTHYROXINE SODIUM 125 MCG TAB PO SCH (05:28)
[2017-04-22] MEDS: CHLORHEXIDINE 0.12% (ORAL KIT) 15 ML CUP MT SCH ×3 (08:00→20:12)
[2017-04-22] MEDS: PANTOPRAZOLE SODIUM 40 MG VIAL IV PUSH SCH (09:58)
[2017-04-22] MEDS: APIXABAN 2.5 MG TABLET PO SCH ×2 (09:58→20:13)
[2017-04-22] MEDS: INSULIN DETEMIR 100 UNITS/ML VIAL SQ SCH ×2 (09:59→20:14)
[2017-04-22] MEDS: METOPROLOL TARTRATE 50 MG TAB PO SCH ×2 (09:59→20:13)
[2017-04-22] MEDS: CALCITRIOL 0.25 MCG CAP PO SCH (09:59)
[2017-04-22] MEDS: CHOLECALCIFEROL (VIT D3) 400 UNIT TAB PO SCH ×2 (09:59→20:13)
[2017-04-22] MEDS: SODIUM CHLORIDE 0.9% FLUSH 10 ML FLUSH IV FLUSH SCH ×2 (10:03→20:13)
[2017-04-22] MEDS: CEFEPIME INJ 2,000 MG in SODIUM CHLORIDE 0.9% INJ 100 ML IV SCH (10:03)
--- NOTE | 2017-04-22 11:33 | HHI.CCPN ---
Subjective Remarks/Hospital Course The patient is an 82 year old female past with past medical history significant for hypertension, atrial fibrillation, diabetes mellitus, obesity, hypothyroidism, hyperlipidemia, diabetic neuropathy, who was seen in ED 3 days ago bronchospasm. She has COPD/Asthma and restrictive lung disease related to her obesity. Patient was treated for reactive airway disease, given breathing treatments and was discharged on as needed inhalers. Patient was brought in today by her as she was having shortness of breath and on the way to the ED when she slumped over in the car. In the emergency department she showed agonal breathing, she was intubated for airway protection emergently. Patient was given Solu-Medrol and breathing treatments and was placed on the mechanical ventilation. Chest x-ray showed bilateral infiltrates concerning for pneumonia. CT of the head was negative. I evaluated the patient in the ICU. She is on minimal sedation and mild attempts to wake up and intermittently tries to follows commands. She still on high oxygen requirement FiO2 is 60% with a PEEP of 5. I have increased the PEEP to 10. I have started the patient on scheduled IV Solu-Medrol, DuoNeb breathing treatments, cefepime and azithromycin for probable pneumonia. 04/20 Remains intubated, off sedation following commands. Currently FiO2 had been weaned to 40%. Urine output 950 ml since admission. Start SBT, Bumex 1 mg IV x1. 04/21: Tolerating CPAP better today, Appears calm following commands. UO adequate, though creat increasing. Cultures remain negative 04/22: Extubated yesterday required BiPAP overnight. Currently on nasal cannula slightly tachypneic but able to talk in full sentences maintaining oxygen saturation Objective Vital Signs Date Time Temp Pulse Resp B/P (MAP) Pulse Ox O2 Delivery O2 Flow Rate FiO2 04/22/17 08:39 94 Nasal Cannula 2.00 04/22/17 06:00 109 04/22/17 04:00 98.2 18 163/72 (102) 04/22/17 03:19 30 Intake and Output 04/22/17 04/22/17 04/23/17 08:00 16:00 00:00 Output Total 1200 ml Balance -1200 ml Result Diagram: 04/21/17 0634 04/21/17 0634 Other Results Microbiology Date/Time Source Procedure Growth Status 04/19/17 13:10 Sputum Endotracheal Gram Stain - Final Complete 04/19/17 13:10 Sputum Endotracheal Sputum Culture - Final HEAVY GROWTH NORMAL RESPIRATORY GORDON Complete Imaging Chest x-ray shows bilateral infiltrates predominantly right upper lobe and left lower lobe CT of the head no acute findings Objective Remarks GEN: Patient is alert awake sitting up in ICU bed on nasal cannula. Head is normocephalic atraumatic. ENT: Oral cavity is dry Neck: No nuchal rigidity. No thyromegaly. Cardiovascular: Regular rate and rhythm without murmurs, gallops, or rubs. Lungs: Decreased breath sounds bilaterally with few scattered wheezes Abdomen: Abdomen soft nontender. No guarding, rebound, or rigidity. Extremities: No clubbing, cyanosis, or edema. Neurologic: AO x3 No FND A/P Assessment and Plan NEURO: Acute metabolic encephalopathy-resolved - Sedation off. Metabolic encephalopathy resolved - CT of the head negative for acute findings, holding gabapentin RESP: Acute respiratory failure Pneumonia COPD with exacerbation Restrictive lung disease - Extubated 04/21. BiPAP overnight, use when necessary - DuoNeb every 4 hours scheduled and when necessary - IV Solu-Medrol 40 every 8 - Broad-spectrum antibiotics with cefepime and azithromycin CV: Chronic A. fib - All IV fluids DC'd. - Rate controlled with metoprolol home dose, resume Diltiazem today - Continue Eliquis GI: - ADA renal diet. IV famotidine : Acute on chronic kidney disease - IV fluid resuscitation as above, consult nephrology -Dr. Grewal - Monitor renal function closely. Nelson catheter. - Creatinine is increased but urine output is adequate. Repeat labs today pending ID: Severe sepsis Pneumonia - Blood sputum and urine culture, all negative to date - Empiric cefepime and azithromycin HEME: - Monitor CBC, CMP, INR - Continue Eliquis ENDO: Hypothyroidism Type 2 diabetes - Continue levothyroxine, sliding-scale insulin - SSI. Levemir PROPH: - Bilateral lower extremity SCDs, Eliquis, Protonix LINES: - Utilize peripheral IVs, central line if needed Level 3 Keerthi Song MD Apr 22, 2017 11:33
--- NOTE | 2017-04-22 13:39 | HHI.NPPN ---
Subjective History of Present Illness Patient is a 82-year-old with sepsis, COPD, intubation, diabetes, acute renal failure and chronic kidney disease. Additional Remarks Patient is alert, and now with nasal cannula, not in distress. Objective Data Data Vital Signs Date Time Temp Pulse Resp B/P (MAP) Pulse Ox O2 Delivery O2 Flow Rate FiO2 04/22/17 12:00 98.1 04/22/17 08:39 94 Nasal Cannula 2.00 04/22/17 08:00 98.2 04/22/17 07:00 93 Nasal Cannula 2.00 04/22/17 06:00 109 04/22/17 05:35 95 Nasal Cannula 2.00 04/22/17 04:00 98.2 111 18 163/72 (102) 96 04/22/17 04:00 111 04/22/17 03:19 96 30 04/22/17 02:00 111 04/22/17 00:33 30 30 04/22/17 00:00 110 04/22/17 00:00 98.4 110 16 146/63 (90) 96 04/21/17 22:00 105 04/21/17 21:26 95 30 04/21/17 20:00 105 04/21/17 20:00 98.8 105 18 188/81 (116) 98 04/21/17 19:58 100 30 04/21/17 19:00 98 Bi-Pap 45 04/21/17 18:00 102 04/21/17 16:00 98.7 94 30 144/65 (91) 100 04/21/17 16:00 94 04/21/17 15:00 99 Bi-Pap 45 04/21/17 15:00 100 45 04/21/17 14:00 94 -: 04/21/17 0634 04/21/17 0634 Physical Exam General Appearance: No Acute Distress, Comfortable, Obese Neck Neck Exam: Neck Supple Pulmonary Resp Exam: Decreased Bases Cardiology CV Exam: Regular Gastrointestinal/Abdomen GI Exam: Soft, Non-Tender, Bowel Sounds Present Extremeties Extremities Exam: Trace Edema Neurologic Neuro Exam: Alert, Awake Psychiatric Psych Exam: Appropriate Responses Assessment/Plan Problem List: (1) Acute on chronic renal insufficiency ICD Codes: N28.9 - Disorder of kidney and ureter, unspecified; N18.9 - Chronic kidney disease, unspecified Status: Acute Plan: Patient is in acute renal failure and had chronic kidney disease non oliguric , urine out put is adequate. Creatinine now 3.1, Avoid Nephrotoxins, now off IVF, follow the urine out put and BMP. (2) Hypertension ICD Codes: I10 - Hypertension Status: Acute Plan: Blood pressure was low requiring fluid bolus (3) Diabetes ICD Codes: E11.9 - Type 2 diabetes mellitus without complications Status: Acute Plan: Continue to monitor (4) COPD with acute exacerbation ICD Codes: J44.1 - Chronic obstructive pulmonary disease with (acute) exacerbation Plan: extubated Problem Qualifiers (1) Diabetes: Marzena Hunt MD Apr 22, 2017 13:39
[2017-04-22] MEDS: AZITHROMYCIN INJ 500 MG in SODIUM CHLOR 0.9% 250 ML INJ 250 ML IV SCH (14:00)
[2017-04-22 15:43] LABS: ANION GAP 13 MEQ/L (5-15); AST (GOT) 24 U/L (15-37); BICARBONATE 20.1 MEQ/L (21.0-32.0); BLOOD UREA NITROGEN 50 MG/DL (7-18); CHLORIDE 112 MEQ/L (98-107); GLOMERULAR FILTRATION RATE 18 ML/MIN (>89); SODIUM (NA) 145 MEQ/L (136-145)
[2017-04-22 15:46] LABS: ALKALINE PHOSPHATASE 97 U/L (45-117); ALT (GPT) 21 U/L (10-53); TOTAL BILIRUBIN ADULT 0.4 MG/DL (0.2-1.0)
[2017-04-22 15:48] LABS: POTASSIUM 4.1 MEQ/L (3.5-5.1)
[2017-04-22] MEDS: hydrALAZINE HCL 20 MG/ML VIAL IV PUSH PRN (18:02)
[2017-04-22] MEDS: methylPREDNISolone SOD SUCC 40 MG/1 ML VIAL IV PUSH SCH (18:02)
[2017-04-22] MEDS: SODIUM CHLORIDE 0.9% FLUSH 10 ML FLUSH IV FLUSH PRN (18:02)
[2017-04-22] MEDS ORDERED: MORPHINE SULFATE 2 MG/ML INJ IV PRN (18:15)
[2017-04-22] MEDS: MORPHINE SULFATE 2 MG/ML INJ IV PRN ×2 (18:20→22:39)
[2017-04-22] MEDS: ATORVASTATIN 20 MG TAB PO SCH (20:14)
[2017-04-23] VITALS (29 sets, daily range): BP systolic 139–189; BP diastolic 65–124; PULSE 79–129; RESP 14–67; TEMP 97.9–98.3; O2SAT 92–99
[2017-04-23] MEDS: methylPREDNISolone SOD SUCC 40 MG/1 ML VIAL IV PUSH SCH ×3 (00:21→21:38)
[2017-04-23] MEDS: INSULIN ASPART SUPPLEMENTAL SCALE SQ SCH ×6 (00:22→21:00)
[2017-04-23] MEDS: CHLORHEXIDINE GLUCONATE 2 % 1 PACK (2 CLOTHS) TOP SCH (04:00)
[2017-04-23] MEDS: RESP: ALBUTEROL 2.5 MG/IPRATROPIUM 0.5 MG NEB (SCH) NEB ×4 (04:07→20:52)
[2017-04-23] MEDS: LEVOTHYROXINE SODIUM 125 MCG TAB PO SCH (05:21)
--- NOTE | 2017-04-23 05:51 | RADRPT ---
EXAM DATE/TIME: 04/23/2017 04:17 [facility] COMPARISON: CHEST SINGLE AP, April 21, 2017, 4:31. INDICATIONS : Shortness of breath, possible pulmonary disease. MEDICAL HISTORY : Hypercholesterolemia. Hypertension Diabetes mellitus type II. A-Fib SURGICAL HISTORY : Colon resection. Cholecystectomy. ENCOUNTER: Subsequent ACUITY: 4 - 6 days PAIN SCORE: Non-responsive. LOCATION: Bilateral chest FINDINGS: A single AP erect view of the chest was obtained. There is mild motion artifact. Hazy opacity remains throughout the right lung as well as the left lung base with partial obscuration of the left hemidia phragm and blunting the costophrenic angle. The heart size appears mildly prominent. The bony thorax is intact. CONCLUSION: 1. Suboptimal single view study with mild motion artifact. 2. No significant change in the bibasilar opacities. Guevara Crowell MD on April 23, 2017 at 5:49 Board Certified Radiologist. This report was verified electronically.
[2017-04-23 06:25] LABS: AUTOMATED NEUTROPHIL # 12.7 TH/MM3 (1.8-7.7); BASOPHIL % 0.1 % (0.0-2.0); EOSINOPHIL % 0.2 % (0.0-4.0); HEMATOCRIT 28.4 % (35.0-46.0); LYMPH % 2.1 % (9.0-44.0); LYMPHOCYTE # 0.3 TH/MM3 (1.0-4.8); MEAN CELL VOLUME 93.2 FL (80.0-100.0); MEAN CORPUSCULAR HEMOGLOBIN 29.4 PG (27.0-34.0); MEAN CORPUSCULAR HGB CONC 31.5 % (32.0-36.0); MONO % 5.8 % (0.0-8.0); NEUT % 91.8 % (16.0-70.0); PLATELET COUNT 188 TH/MM3 (150-450); RED BLOOD COUNT 3.05 MIL/MM3 (4.00-5.30); RED CELL DISTRIBUTION WIDTH 15.3 % (11.6-17.2); WHITE BLOOD COUNT 13.9 TH/MM3 (4.0-11.0)
[2017-04-23 06:41] LABS: HEMO FLAGS AUTO DIFF
[2017-04-23 06:57] LABS: ANION GAP 12 MEQ/L (5-15); AST (GOT) 21 U/L (15-37); BICARBONATE 20.4 MEQ/L (21.0-32.0); BLOOD UREA NITROGEN 54 MG/DL (7-18); CHLORIDE 106 MEQ/L (98-107); GLOMERULAR FILTRATION RATE 19 ML/MIN (>89); POTASSIUM 3.6 MEQ/L (3.5-5.1); SODIUM (NA) 138 MEQ/L (136-145)
[2017-04-23 06:59] LABS: ALT (GPT) 25 U/L (10-53)
[2017-04-23 07:01] LABS: ALKALINE PHOSPHATASE 91 U/L (45-117); TOTAL BILIRUBIN ADULT 0.4 MG/DL (0.2-1.0)
[2017-04-23 07:35] LABS: BANDS 2 % (0-6); METAMYELOCYTES 2 % (0-1); MYELOCYTES 1 % (0-0); NEUTROPHIL # MANUAL DIFF 13.1 TH/MM3 (1.8-7.7); POLYS (SEG NEUTROPHILS) 89 % (16-70); WBC DIFF SAMPLE 100
[2017-04-23 07:36] LABS: PLATELET ESTIMATE SMEAR NORMAL (NORMAL); PLATELET MORPHOLOGY NORMAL (NORMAL); SCAN/DIFF FINAL DIFF MANUAL
[2017-04-23] MEDS: PANTOPRAZOLE SODIUM 40 MG VIAL IV PUSH SCH (09:53)
[2017-04-23] MEDS: CHOLECALCIFEROL (VIT D3) 400 UNIT TAB PO SCH ×2 (09:53→21:39)
[2017-04-23] MEDS: CEFEPIME INJ 2,000 MG in SODIUM CHLORIDE 0.9% INJ 100 ML IV SCH (09:54)
[2017-04-23] MEDS: CALCITRIOL 0.25 MCG CAP PO SCH (09:54)
[2017-04-23] MEDS: METOPROLOL TARTRATE 50 MG TAB PO SCH ×2 (09:54→21:39)
[2017-04-23] MEDS: SODIUM CHLORIDE 0.9% FLUSH 10 ML FLUSH IV FLUSH SCH ×2 (09:54→12:31)
[2017-04-23] MEDS: APIXABAN 2.5 MG TABLET PO SCH ×2 (09:55→21:39)
[2017-04-23] MEDS: CHLORHEXIDINE 0.12% (ORAL KIT) 15 ML CUP MT SCH ×2 (09:55→20:00)
[2017-04-23] MEDS: INSULIN DETEMIR 100 UNITS/ML VIAL SQ SCH ×2 (09:56→21:00)
[2017-04-23] MEDS ORDERED: DILTIAZEM HCL 25 MG/5 ML VIAL IV ONE ×2 (12:15→22:15)
[2017-04-23] MEDS ORDERED: DILTIAZEM-CD 300 MG CAP ER PO ONE (12:15)
[2017-04-23] MEDS: GABAPENTIN 100 MG CAP PO SCH ×2 (13:00→21:39)
--- NOTE | 2017-04-23 14:59 | HHI.NPPN ---
Subjective History of Present Illness Patient is a 82-year-old with sepsis, COPD, intubation, diabetes, acute renal failure and chronic kidney disease. Additional Remarks Patient is alert, and now with nasal cannula, not in distress, clinically same. Objective Data Data Vital Signs Date Time Temp Pulse Resp B/P (MAP) Pulse Ox O2 Delivery O2 Flow Rate FiO2 04/23/17 10:00 104 30 172/74 (106) 98 04/23/17 09:57 98 Nasal Cannula 4.00 04/23/17 09:00 104 17 183/75 (111) 97 04/23/17 08:00 97.9 94 17 181/74 (109) 98 04/23/17 07:00 92 16 175/80 (111) 99 04/23/17 06:00 95 04/23/17 04:00 98.0 87 14 168/74 (105) 98 04/23/17 04:00 87 04/23/17 02:00 90 04/23/17 00:00 98.2 93 18 167/72 (103) 97 04/23/17 00:00 93 04/22/17 22:44 16 04/22/17 22:00 99 04/22/17 21:21 96 Nasal Cannula 4.00 04/22/17 20:00 101 04/22/17 20:00 97.9 101 16 155/68 (97) 95 04/22/17 19:00 97 Nasal Cannula 4.00 04/22/17 18:12 95 18 180/75 (110) 94 04/22/17 18:09 95 18 192/81 (118) 93 04/22/17 18:00 96 19 208/81 (123) 92 04/22/17 17:28 94 19 203/83 (123) 89 04/22/17 17:25 94 21 197/84 (121) 90 04/22/17 17:00 93 19 193/81 (118) 91 04/22/17 16:00 97 21 184/77 (112) 93 04/22/17 15:01 96 32 155/68 (97) 94 04/22/17 15:00 95 28 94 -: 04/23/17 0604 04/23/17 0604 Physical Exam General Appearance: No Acute Distress, Comfortable, Obese Neck Neck Exam: Neck Supple Pulmonary Resp Exam: Decreased Bases Cardiology CV Exam: Regular Gastrointestinal/Abdomen GI Exam: Soft, Non-Tender, Bowel Sounds Present Extremeties Extremities Exam: Trace Edema Neurologic Neuro Exam: Alert, Awake Psychiatric Psych Exam: Appropriate Responses Assessment/Plan Problem List: (1) Acute on chronic renal insufficiency ICD Codes: N28.9 - Disorder of kidney and ureter, unspecified; N18.9 - Chronic kidney disease, unspecified Status: Acute Plan: Patient is in acute renal failure and had chronic kidney disease non oliguric , urine out put is adequate. Creatinine is slightly better, now 2.89. Avoid Nephrotoxins, now off IVF, follow the urine out put and BMP. D/W the daughter at bed side. (2) Hypertension ICD Codes: I10 - Hypertension Status: Acute Plan: Blood pressure was low requiring fluid bolus (3) Diabetes ICD Codes: E11.9 - Type 2 diabetes mellitus without complications Status: Acute Plan: Continue to monitor (4) COPD with acute exacerbation ICD Codes: J44.1 - Chronic obstructive pulmonary disease with (acute) exacerbation Plan: extubated Problem Qualifiers (1) Diabetes: Marzena Hunt MD Apr 23, 2017 14:59
[2017-04-23] MEDS: AZITHROMYCIN INJ 500 MG in SODIUM CHLOR 0.9% 250 ML INJ 250 ML IV SCH (15:28)
--- NOTE | 2017-04-23 16:45 | HHI.CCPN ---
Subjective Remarks/Hospital Course The patient is an 82 year old female past with past medical history significant for hypertension, atrial fibrillation, diabetes mellitus, obesity, hypothyroidism, hyperlipidemia, diabetic neuropathy, who was seen in ED 3 days ago bronchospasm. She has COPD/Asthma and restrictive lung disease related to her obesity. Patient was treated for reactive airway disease, given breathing treatments and was discharged on as needed inhalers. Patient was brought in today by her as she was having shortness of breath and on the way to the ED when she slumped over in the car. In the emergency department she showed agonal breathing, she was intubated for airway protection emergently. Patient was given Solu-Medrol and breathing treatments and was placed on the mechanical ventilation. Chest x-ray showed bilateral infiltrates concerning for pneumonia. CT of the head was negative. I evaluated the patient in the ICU. She is on minimal sedation and mild attempts to wake up and intermittently tries to follows commands. She still on high oxygen requirement FiO2 is 60% with a PEEP of 5. I have increased the PEEP to 10. I have started the patient on scheduled IV Solu-Medrol, DuoNeb breathing treatments, cefepime and azithromycin for probable pneumonia. 04/20 Remains intubated, off sedation following commands. Currently FiO2 had been weaned to 40%. Urine output 950 ml since admission. Start SBT, Bumex 1 mg IV x1. 04/21: Tolerating CPAP better today, Appears calm following commands. UO adequate, though creat increasing. Cultures remain negative 04/22: Extubated yesterday required BiPAP overnight. Currently on nasal cannula slightly tachypneic but able to talk in full sentences maintaining oxygen saturation 04/23: Breathing more comfortably today on nasal cannula. Daughter At the bedside. Urine output adequate, creatinine has slightly improved Objective Vital Signs Date Time Temp Pulse Resp B/P (MAP) Pulse Ox O2 Delivery O2 Flow Rate FiO2 04/23/17 10:00 104 30 172/74 (106) 98 04/23/17 09:57 Nasal Cannula 4.00 04/23/17 08:00 97.9 04/22/17 03:19 30 Intake and Output 04/23/17 04/23/17 04/24/17 08:00 16:00 00:00 Intake Total 140 ml Output Total 900 ml Balance -760 ml Result Diagram: 04/23/1704 04/23/17 0604 Imaging Chest x-ray shows bilateral infiltrates predominantly right upper lobe and left lower lobe CT of the head no acute findings Objective Remarks GEN: Patient is alert awake sitting up in ICU bed on nasal cannula. Head is normocephalic atraumatic. ENT: Oral cavity is dry Neck: No nuchal rigidity. No thyromegaly. Cardiovascular: Regular rate and rhythm without murmurs, gallops, or rubs. Lungs: Decreased breath sounds bilaterally with few scattered wheezes Abdomen: Abdomen soft nontender. No guarding, rebound, or rigidity. Extremities: No clubbing, cyanosis, or edema. Neurologic: AO x3 No FND A/P Assessment and Plan NEURO: Acute metabolic encephalopathy-resolved - Sedation off. Metabolic encephalopathy resolved - CT of the head negative for acute findings, holding gabapentin RESP: Acute respiratory failure Pneumonia COPD with exacerbation Restrictive lung disease - Extubated 04/21. BiPAP use when necessary - DuoNeb every 4 hours scheduled and when necessary - IV Solu-Medrol 40 every 8-reduce to 40 q12 - Broad-spectrum antibiotics with cefepime and azithromycin CV: Chronic A. fib - All IV fluids DC'd. - Rate controlled with metoprolol home dose, resume Diltiazem - Continue Eliquis GI: - ADA renal diet. IV famotidine-DC : Acute on chronic kidney disease - Nephrology -Dr. Grewal - Monitor renal function closely. Nelson catheter. - Creatinine is improved. NO HD. ID: Severe sepsis Pneumonia - Blood sputum and urine culture, all negative to date - Empiric cefepime and azithromycin for 7-10 days HEME: - Monitor CBC, CMP, INR - Continue Eliquis ENDO: Hypothyroidism Type 2 diabetes - Continue levothyroxine, sliding-scale insulin - SSI. Levemir PROPH: - Bilateral lower extremity SCDs, Eliquis, Protonix LINES: - Utilize peripheral IVs, central line if needed Level 3 Consult hospitalist to assume care 04/24/17 Keerthi Song MD Apr 23, 2017 16:45
[2017-04-23] MEDS: ATORVASTATIN 20 MG TAB PO SCH (21:39)
[2017-04-23] MEDS: MORPHINE SULFATE 2 MG/ML INJ IV PRN (23:29)
[2017-04-24] VITALS (23 sets, daily range): BP systolic 89–145; BP diastolic 56–83; PULSE 99–148; RESP 14–28; TEMP 97.7–98.8; O2SAT 94–100
[2017-04-24] MEDS: INSULIN ASPART SUPPLEMENTAL SCALE SQ SCH ×6 (01:00→20:43)
[2017-04-24] MEDS: METOPROLOL TARTRATE 5 MG/5 ML VIAL IV PUSH PRN ×10 (02:16→20:40)
[2017-04-24] MEDS: CHLORHEXIDINE GLUCONATE 2 % 1 PACK (2 CLOTHS) TOP SCH (04:00)
[2017-04-24] MEDS: RESP: ALBUTEROL 2.5 MG/IPRATROPIUM 0.5 MG NEB (SCH) NEB ×4 (04:02→21:06)
[2017-04-24] MEDS: LEVOTHYROXINE SODIUM 125 MCG TAB PO SCH (06:02)
[2017-04-24] MEDS: CHLORHEXIDINE 0.12% (ORAL KIT) 15 ML CUP MT SCH ×2 (08:00→20:00)
[2017-04-24] MEDS: CALCITRIOL 0.25 MCG CAP PO SCH (08:22)
[2017-04-24] MEDS: METOPROLOL TARTRATE 50 MG TAB PO SCH ×2 (08:23→20:41)
[2017-04-24] MEDS: APIXABAN 2.5 MG TABLET PO SCH ×2 (08:23→20:41)
[2017-04-24] MEDS: SODIUM CHLORIDE 0.9% FLUSH 10 ML FLUSH IV FLUSH SCH ×2 (08:24→20:39)
[2017-04-24] MEDS: INSULIN DETEMIR 100 UNITS/ML VIAL SQ SCH ×2 (08:24→20:43)
[2017-04-24] MEDS: methylPREDNISolone SOD SUCC 40 MG/1 ML VIAL IV PUSH SCH ×2 (08:24→20:40)
[2017-04-24] MEDS: CEFEPIME INJ 2,000 MG in SODIUM CHLORIDE 0.9% INJ 100 ML IV SCH (08:24)
[2017-04-24] MEDS: CHOLECALCIFEROL (VIT D3) 400 UNIT TAB PO SCH ×2 (08:24→20:41)
[2017-04-24] MEDS: GABAPENTIN 100 MG CAP PO SCH ×2 (08:29→20:46)
[2017-04-24] MEDS ORDERED: DILTIAZEM-CD 300 MG CAP ER PO SCH (09:00)
[2017-04-24] MEDS ORDERED: DILTIAZEM HCL 25 MG/5 ML VIAL IV ONE (09:15)
--- NOTE | 2017-04-24 09:42 | HHI.NPPN ---
Subjective History of Present Illness Patient is a 82-year-old with sepsis, COPD, intubation, diabetes, acute renal failure and chronic kidney disease. Additional Remarks Patient is alert, and now with nasal cannula, not in distress, clinically same. Has Afib RVR Objective Data Data Vital Signs Date Time Temp Pulse Resp B/P (MAP) Pulse Ox O2 Delivery O2 Flow Rate FiO2 04/24/17 06:00 132 04/24/17 04:00 98.3 124 18 107/56 (73) 99 04/24/17 04:00 124 04/24/17 02:00 118 04/24/17 00:00 128 04/24/17 00:00 98.1 129 20 145/65 (91) 94 04/23/17 23:34 16 04/23/17 22:00 129 04/23/17 20:54 99 Nasal Cannula 3.00 04/23/17 20:00 99 04/23/17 20:00 98.2 99 18 167/69 (101) 96 04/23/17 19:00 96 Nasal Cannula 4.00 04/23/17 17:01 96 24 174/74 (107) 96 04/23/17 16:40 96 25 175/79 (111) 96 04/23/17 16:20 99 25 176/76 (109) 96 04/23/17 16:00 98.3 96 26 183/69 (107) 94 04/23/17 15:40 96 31 189/72 (111) 97 04/23/17 15:21 92 29 183/81 (115) 96 04/23/17 15:19 92 21 139/65 (89) 95 04/23/17 15:00 89 22 96 04/23/17 14:40 94 67 185/124 (144) 92 04/23/17 14:20 88 26 163/81 (108) 95 04/23/17 14:01 87 23 155/69 (97) 96 04/23/17 14:00 88 26 95 04/23/17 13:40 90 23 165/72 (103) 95 04/23/17 13:20 89 25 163/69 (100) 94 04/23/17 13:00 85 26 166/72 (103) 94 04/23/17 12:41 79 20 148/74 (98) 94 04/23/17 12:00 98.1 109 24 157/70 (99) 98 04/23/17 10:00 104 30 172/74 (106) 98 04/23/17 09:57 98 Nasal Cannula 4.00 -: 04/23/17 0604 04/23/17 0604 Physical Exam General Appearance: No Acute Distress, Comfortable, Obese Neck Neck Exam: Neck Supple Pulmonary Resp Exam: Decreased Bases Cardiology CV Exam: Arrhythmia Gastrointestinal/Abdomen GI Exam: Soft, Non-Tender, Bowel Sounds Present Extremeties Extremities Exam: Trace Edema Neurologic Neuro Exam: Alert, Awake Psychiatric Psych Exam: Appropriate Responses Assessment/Plan Problem List: (1) Acute on chronic renal insufficiency ICD Codes: N28.9 - Disorder of kidney and ureter, unspecified; N18.9 - Chronic kidney disease, unspecified Status: Acute Plan: Patient is in acute renal failure and had chronic kidney disease non oliguric , urine out put is adequate. Creatinine is slightly better, now 2.89. 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
[2017-04-24] MEDS: MULTIVITAMINS/MINERALS THERAPEUTIC TAB PO SCH ×2 (10:09→20:41)
[2017-04-24] MEDS: PANTOPRAZOLE SOD 20 MG DELAYED RELEASE TAB PO SCH ×2 (10:11→20:41)
--- NOTE | 2017-04-24 10:15 | HHI.PR ---
Subjective Remarks The patient is an 82 year old female past with past medical history significant for hypertension, atrial fibrillation, diabetes mellitus, obesity, hypothyroidism, hyperlipidemia, diabetic neuropathy, who was seen in ED 3 days ago bronchospasm. She has COPD/Asthma and restrictive lung disease related to her obesity. Patient was treated for reactive airway disease, given breathing treatments and was discharged on as needed inhalers. Patient was brought in today by her as she was having shortness of breath and on the way to the ED when she slumped over in the car. In the emergency department she showed agonal breathing, she was intubated for airway protection emergently. Patient was given Solu-Medrol and breathing treatments and was placed on the mechanical ventilation. Chest x-ray showed bilateral infiltrates concerning for pneumonia. CT of the head was negative. I evaluated the patient in the ICU. She is on minimal sedation and mild attempts to wake up and intermittently tries to follows commands. She still on high oxygen requirement FiO2 is 60% with a PEEP of 5. I have increased the PEEP to 10. I have started the patient on scheduled IV Solu-Medrol, DuoNeb breathing treatments, cefepime and azithromycin for probable pneumonia. 04/20 Remains intubated, off sedation following commands. Currently FiO2 had been weaned to 40%. Urine output 950 ml since admission. Start SBT, Bumex 1 mg IV x1. 04/21: Tolerating CPAP better today, Appears calm following commands. UO adequate, though creat increasing. Cultures remain negative 04/22: Extubated yesterday required BiPAP overnight. Currently on nasal cannula slightly tachypneic but able to talk in full sentences maintaining oxygen saturation 04/23: Breathing more comfortably today on nasal cannula. Daughter At the bedside. Urine output adequate, creatinine has slightly improved 04/24 PATIENT TRANSFERRED TO OUR SERVICE TODAY STILL HAVING POORLY CONTROLLED AFIB CONTINUE ON CARDIZEM AND METOPROLOL WILL GIVE CARDIZEM PUSH MAY NEED BOTH CARDIZEM AND METOPROLOL INCREASED PT AND OT AND CM TO EVAL AND TREAT DW DR GREWAL OF NEPHROLOGY Objective Vitals Vital Signs Date Time Temp Pulse Resp B/P (MAP) Pulse Ox O2 Delivery O2 Flow Rate FiO2 04/24/17 06:00 132 04/24/17 04:00 98.3 124 18 107/56 (73) 99 04/24/17 04:00 124 04/24/17 02:00 118 10/23/17 00:00 128 04/24/17 00:00 98.1 129 20 145/65 (91) 94 04/23/17 23:34 16 04/23/17 22:00 129 04/23/17 20:54 99 Nasal Cannula 3.00 04/23/17 20:00 99 04/23/17 20:00 98.2 99 18 167/69 (101) 96 04/23/17 19:00 96 Nasal Cannula 4.00 04/23/17 17:01 96 24 174/74 (107) 96 04/23/17 16:40 96 25 175/79 (111) 96 04/23/17 16:20 99 25 176/76 (109) 96 04/23/17 16:00 98.3 96 26 183/69 (107) 94 04/23/17 15:40 96 31 189/72 (111) 97 04/23/17 15:21 92 29 183/81 (115) 96 04/23/17 15:19 92 21 139/65 (89) 95 04/23/17 15:00 89 22 96 04/23/17 14:40 94 67 185/124 (144) 92 04/23/17 14:20 88 26 163/81 (108) 95 04/23/17 14:01 87 23 155/69 (97) 96 04/23/17 14:00 88 26 95 04/23/17 13:40 90 23 165/72 (103) 95 04/23/17 13:20 89 25 163/69 (100) 94 04/23/17 13:00 85 26 166/72 (103) 94 04/23/17 12:41 79 20 148/74 (98) 94 04/23/17 12:00 98.1 109 24 157/70 (99) 98 I/O 04/23/17 04/23/17 04/23/17 04/24/17 04/24/17 04/24/17 07:00 15:00 23:00 07:00 15:00 23:00 Intake Total 140 ml 1010 ml 240 ml Output Total 900 ml 800 ml 550 ml Balance -760 ml 210 ml -310 ml Intake Oral 140 ml 560 ml 240 ml IV Total 450 ml Output Urine Total 900 ml 800 ml 550 ml # Bowel Movements 0 0 0 Result Diagram: 04/23/17 0604 04/23/17 0604 Other Results Laboratory Tests Test 04/22/17 14:57 04/23/17 06:04 Blood Urea Nitrogen 50 MG/DL 54 MG/DL Creatinine 3.02 MG/DL 2.89 MG/DL Random Glucose 178 MG/DL 176 MG/DL Total Protein 6.8 GM/DL 7.4 GM/DL Albumin 2.8 GM/DL 2.9 GM/DL Calcium Level 8.0 MG/DL 8.6 MG/DL Alkaline Phosphatase 97 U/L 91 U/L Aspartate Amino Transf (AST/SGOT) 24 U/L 21 U/L Alanine Aminotransferase (ALT/SGPT) 21 U/L 25 U/L Total Bilirubin 0.4 MG/DL 0.4 MG/DL Sodium Level 145 MEQ/L 138 MEQ/L Potassium Level 4.1 MEQ/L 3.6 MEQ/L Chloride Level 112 MEQ/L 106 MEQ/L Carbon Dioxide Level 20.1 MEQ/L 20.4 MEQ/L Anion Gap 13 MEQ/L 12 MEQ/L Estimat Glomerular Filtration Rate 18 ML/MIN 19 ML/MIN White Blood Count 13.9 TH/MM3 Red Blood Count 3.05 MIL/MM3 Hemoglobin 8.9 GM/DL Hematocrit 28.4 % Mean Corpuscular Volume 93.2 FL Mean Corpuscular Hemoglobin 29.4 PG Mean Corpuscular Hemoglobin Concent 31.5 % Red Cell Distribution Width 15.3 % Platelet Count 188 TH/MM3 Mean Platelet Volume 8.3 FL Neutrophils (%) (Auto) 91.8 % Lymphocytes (%) (Auto) 2.1 % Monocytes (%) (Auto) 5.8 % Eosinophils (%) (Auto) 0.2 % Basophils (%) (Auto) 0.1 % Neutrophils # (Auto) 12.7 TH/MM3 Lymphocytes # (Auto) 0.3 TH/MM3 Monocytes # (Auto) 0.8 TH/MM3 Eosinophils # (Auto) 0.0 TH/MM3 Basophils # (Auto) 0.0 TH/MM3 CBC Comment AUTO DIFF Differential Total Cells Counted 100 Neutrophils % (Manual) 89 % Band Neutrophils % 2 % Lymphocytes % 3 % Monocytes % 3 % Neutrophils # (Manual) 13.1 TH/MM3 Metamyelocytes 2 % Myelocytes 1 % Differential Comment FINAL DIFF MANUAL Platelet Estimate NORMAL Platelet Morphology Comment NORMAL Imaging Last Impressions Chest X-Ray 04/23/17 0600 Signed Impressions: Service Date/Time: Sunday, April 23, 2017 04:17 - CONCLUSION: 1. Suboptimal single view study with mild motion artifact. 2. No significant change in the bibasilar opacities. Guevara Crowell MD Renal Ultrasound 04/20/17 0000 Signed Impressions: Service Date/Time: April 15:07 - CONCLUSION: 1. There is no hydronephrosis. 2. Stable 8mm nonobstructing left renal stone. Duncan Avery MD Head CT 04/19/17 0702 Signed Impressions: Service Date/Time: Wednesday, April 19, 2017 07:29 - CONCLUSION: 1. Cerebral white matter hypodensity characteristic of chronic microvascular ischemic disease. 2. No evidence of acute infarct, hemorrhage, mass or edema. Renato Coughlin MD Objective Remarks GENERAL: AWAKE ALERT AND ORIENTED, TALKATIVE AND COOPERATIVE SKIN: Warm and dry. HEAD: Atraumatic. Normocephalic. EYES: Pupils equal and round. No scleral icterus. No injection or drainage. EOMI ENT: No nasal bleeding or discharge. Mucous membranes pink and moist.TONGUE MIDLINE NECK: Trachea midline. No JVD. NECK IS SUPPLE CARDIOVASCULAR: IRRegular rate and rhythm. S1, S2 NO S3 OR S4 NO HEAVE OR THRILL RESPIRATORY: No accessory muscle use. FEW RHONCHI BL. Breath sounds equal bilaterally. GASTROINTESTINAL: Abdomen soft, non-tender, nondistended. Hepatic and splenic margins not palpable. OBESE MUSCULOSKELETAL: Extremities without clubbing, cyanosis, or edema. No obvious deformities. NEUROLOGICAL: Awake and alert. No obvious cranial nerve deficits. Motor grossly within normal limits. 4 out of 5 muscle strength in the arms and legs. Normal speech. PSYCHIATRIC: Appropriate mood and affect; insight and judgment normal. Procedures SP VDRF SP INTUBATION AND EXTUBATION Medications and IVs Current Medications Propofol 100 ml @ As Directed STK-MED ONCE .ROUTE ; Start 04/19/17 at 06:24; Stop 04/19/17 at 06:25; Status DC Etomidate (Amidate Inj) 20 mg ONCE ONCE IVP Last administered on 04/19/17t 06 :20; Start 04/19/17 at 06:30; Stop 04/19/17 at 06:31; Status DC Succinylcholine Chloride (Quelicin Inj) 100 mg ONCE ONCE IV PUSH Last administered on 04/19/17 06:20; Start 04/19/17 at 06:30; Stop 04/19/17 at 06 :31; Status DC Albuterol/ Ipratropium (Duoneb Neb) 1 ampule Q15M INH Last administered on 07:07; Start 04/19/17 at 06:30; Stop 04/19/17 at 07:01; Status DC Sodium Chloride (NS Flush) 2 ml UNSCH PRN IVF FLUSH AFTER USING IV ACCESS; Start 04/19/17 at 06:30; Stop 04/19/17 at 08:59; Status DC Propofol 100 ml @ 0 mls/hr TITRATE PRN IV Ordered RASS Last administered on 06:30; Start 04/19/17 at 06:30; Stop 04/19/17 at 08:59; Status DC Sodium Chloride 1,000 ml @ 999 mls/hr BOLUS ONCE IV Last administered on 07:15; Start 04/19/17 at 07:15; Stop 04/19/17 at 08:15; Status DC Sodium Chloride 1,000 ml @ 999 mls/hr BOLUS ONCE IV Last administered on 07:30; Start 04/19/17 at 07:30; Stop 04/19/17 at 08:30; Status DC Propofol 100 ml @ 3.6 mls/hr TITRATE PRN IV SEDATION Last administered on 02:09; Start 04/19/17 at 08:30; Stop 04/22/17 at 11:35; Status DC Sodium Chloride (NS Flush) 2 ml UNSCH PRN IV FLUSH FLUSH AFTER USING IV ACCESS Last administered on 04/22/17 18:02; Start 04/19/17 at 08:30 Sodium Chloride (NS Flush) 2 ml BID IV FLUSH Last administered on 04/24/17 08 :24; Start 04/19/17 at 09:00 Albuterol/ Ipratropium (Duoneb Neb) 1 ampule Q6HR NEB NEB Last administered on 04/22/17 08:39; Start 04/19/17 at 10:00; Stop 04/22/17 at 11:34; Status DC Albuterol/ Ipratropium (Duoneb Neb) 1 ampule Q2HR NEB PRN INH SHORTNESS OF BREATH Last administered on 04/20/17 12:34; Start 04/19/17 at 08:30 Chlorhexidine Gluconate (Peridex 0.12% Liq) 15 ml BID@08,20 MT Last administered on 04/22/17 10:04; Start 04/19/17 at 20:00; Stop 04/22/17 at 18 :11; Status DC Pantoprazole Sodium (Protonix Inj) 40 mg DAILY IV PUSH Last administered on 09:53; Start 04/19/17 at 09:00; Stop 04/23/17 at 16:47; Status DC Miscellaneous Information 1 [id number] ; Start 04/19/17 at 08:30 Chlorhexidine Gluconate (Chlorhexidine 2% Cloth) 3 pack Taper DAILY@04 TOP Last administered on 04/24/17 04:00; Start 04/20/17 at 04:00; Stop 04/16/18 at 03:59 Chlorhexidine Gluconate (Chlorhexidine 2% Cloth) 3 pack UNSCH PRN TOP HYGIENIC CARE; Start 04/19/17 at 08:30 Methylprednisolone Sodium Succinate (SoluMEDROL INJ) 60 mg Q6H IV PUSH Last administered on 04/22/17 09:58; Start 04/19/17 at 09:00; Stop 04/22/17 at 11 :35; Status DC Cefepime HCl 2000 mg/Sodium Chloride 100 ml @ 200 mls/hr Q12H IV Last administered on 04/20/17 07:53; Start 04/19/17 at 09:00; Stop 04/20/17 at 13 :58; Status DC Azithromycin 500 mg/Sodium Chloride 250 ml @ 250 mls/hr Q24H IV Last administered on 04/23/17 15:28; Start 04/19/17 at 14:00; Stop 04/23/17 at 16 :47; Status DC Sodium Chloride 1,000 ml @ 999 mls/hr BOLUS ONCE IV Last administered on 11:00; Start 04/19/17 at 13:30; Stop 04/19/17 at 14:30; Status DC Sodium Chloride 1,000 ml @ 999 mls/hr BOLUS ONCE IV ; Start 04/19/17 at 13:30 ; Stop 04/19/17 at 14:30; Status DC Apixaban (Eliquis) 2.5 mg BID PO Last administered on 04/24/17 08:23; Start 04/19/17 at 21:00 Atorvastatin Calcium (Lipitor) 20 mg HS PO Last administered on 04/23/17 21: 39; Start 04/19/17 at 21:00 Calcitriol (Rocaltrol) 0.25 mcg DAILY PO Last administered on 04/24/17 08:22 ; Start 04/20/17 at 09:00 Levothyroxine Sodium (Synthroid) 125 mcg DAILY@0600 PO Last administered on 06:02; Start 04/20/17 at 06:00 Metoprolol Tartrate (Lopressor) 50 mg BID PO Last administered on 04/24/17 08 :23; Start 04/19/17 at 21:00 Cholecalciferol (Vitamin D3) 400 units BID PO Last administered on 04/24/17 08:24; Start 04/19/17 at 21:00 Influenza Virus Vaccine (Flu (Quadrivalent) Vaccine Inj) 0.5 ml ONCE ONCE IM Last administered on 04/20/17 09:56; Start 04/20/17 at 10:00; Stop 04/20/17 at 10:01; Status DC Sodium Chloride 1,000 ml @ 75 mls/hr [id number] IV Last administered on 21:20; Start 04/19/17 at 15:00; Stop 04/22/17 at 11:35; Status DC Insulin Aspart (NovoLOG SUPPLEMENTAL SCALE) 1 Q4H SQ Last administered on 04/24 01:00; Start 04/19/17 at 17:00 Bumetanide (Bumex Inj) 1 mg STK-MED ONCE .ROUTE ; Start 04/20/17 at 11:08; Stop 04/20/17 at 11:09; Status DC Bumetanide (Bumex Inj) 1 mg NOW ONCE IV PUSH Last administered on 04/20/17 15:46; Start 04/20/17 at 13:15; Stop 04/20/17 at 13:16; Status DC Cefepime HCl 2000 mg/Sodium Chloride 100 ml @ 200 mls/hr DAILY IV Last administered on 04/24/17 08:24; Start 04/21/17 at 09:00 Chlorhexidine Gluconate (Peridex 0.12% Liq) 15 ml BID@08,20 MT Last administered on 04/24/17 08:00; Start 04/20/17 at 20:00 Midazolam HCl 100 ml @ 2 mls/hr TITRATE PRN IV SEDATION; Start 04/20/17 at 14: 30; Stop 04/22/17 at 11:35; Status DC Fentanyl Citrate 250 ml @ 5 mls/hr TITRATE PRN IV SEDATION Last administered on 04/20/17 20:36; Start 04/20/17 at 14:30; Stop 04/22/17 at 11:35; Status DC Hydralazine HCl (Apresoline Inj) 20 mg Q4H PRN IV PUSH SYS BP GREATER THAN 170 MMHG Last administered on 04/22/17 18:02; Start 04/21/17 at 11:30 Insulin Detemir (Levemir Inj) 5 units Q12HR SQ Last administered on 04/24/17 08:24; Start 04/21/17 at 11:30 Bumetanide (Bumex Inj) 2 mg STK-MED ONCE .ROUTE ; Start 04/21/17 at 13:31; Stop 04/21/17 at 13:32; Status DC Lorazepam (Ativan Inj) 2 mg STK-MED ONCE .ROUTE ; Start 04/21/17 at 13:51; Stop 04/21/17 at 13:52; Status DC Morphine Sulfate (Morphine Inj) 2 mg ONCE ONCE IV PUSH Last administered on 14:15; Start 04/21/17 at 14:15; Stop 04/21/17 at 14:16; Status DC Lorazepam (Ativan Inj) 1 mg ONCE ONCE IV PUSH Last administered on 04/21/17 14:24; Start 04/21/17 at 14:15; Stop 04/21/17 at 14:16; Status DC Bumetanide (Bumex Inj) 2 mg NOW ONCE IV PUSH Last administered on 04/21/17 14:24; Start 04/21/17 at 14:15; Stop 04/21/17 at 14:16; Status DC Morphine Sulfate (Morphine Inj) 4 mg STK-MED ONCE .ROUTE ; Start 04/21/17 at 14 :08; Stop 04/21/17 at 14:09; Status DC Albuterol/ Ipratropium (Duoneb Neb) 1 ampule Q6HR NEB NEB Last administered on 04/24/17 04:02; Start 04/22/17 at 16:00 Methylprednisolone Sodium Succinate (SoluMEDROL INJ) 40 mg Q8H IV PUSH Last administered on 04/23/17 09:53; Start 04/22/17 at 17:00; Stop 04/23/17 at 16 :47; Status DC Morphine Sulfate (Morphine Inj) 1 mg Q4H PRN IV PAIN SCALE 1 TO 10 Last administered on 04/23/17 23:29; Start 04/22/17 at 18:00 Morphine Sulfate (Morphine Inj) 1 mg Q4H PRN IV PAIN 1-10; Start 04/22/17 at 18:15; Stop 04/22/17 at 18:15; Status DC Diltiazem HCl (Cardizem Inj) 10 mg NOW ONCE IV Last administered on 12:31; Start 04/23/17 at 12:15; Stop 04/23/17 at 12:16; Status DC Diltiazem HCl (Cardizem Cd) 300 mg NOW ONCE PO Last administered on 12:15; Start 04/23/17 at 12:15; Stop 04/23/17 at 12:16; Status DC Diltiazem HCl (Cardizem Cd) 300 mg DAILY PO Last administered on 04/24/17 08: 23; Start 04/24/17 at 09:00 Gabapentin (Neurontin) 100 mg BID PO Last administered on 04/24/17 08:29; Start 04/23/17 at 13:00; Stop 04/24/17 at 09:22; Status DC Methylprednisolone Sodium Succinate (SoluMEDROL INJ) 40 mg Q12H IV PUSH Last administered on 04/24/17 08:24; Start 04/23/17 at 21:00 Diltiazem HCl (Cardizem Inj) 10 mg STAT ONCE IV Last administered on 22:14; Start 04/23/17 at 22:15; Stop 04/23/17 at 22:16; Status DC Metoprolol Tartrate (Lopressor Inj) 5 mg Q5M PRN IV PUSH HR>100 Last administered on 04/24/17t 03:38; Start 04/24/17 at 02:15 Diltiazem HCl (Cardizem Inj) 15 mg ONCE ONCE IV ; Start 04/24/17 at 09:15; Stop 04/24/17 at 09:16; Status DC Gabapentin (Neurontin) 100 mg BID PO ; Start 04/24/17 at 21:00 Multivitamins/ Minerals Therapeutic (Theragran M Tab) 1 tab BID PO ; Start at 10:00 Pantoprazole Sodium (Protonix) 20 mg BID PO ; Start 04/24/17 at 09:00 Urinary Catheter: No Vascular Central Line Catheter: No A/P Problem List: (1) Acute hypoxemic respiratory failure ICD Code: J96.01 - Acute respiratory failure with hypoxia Status: Acute (2) Acute metabolic encephalopathy ICD Code: G93.41 - Metabolic encephalopathy (3) Pneumonia ICD Code: J18.9 - Pneumonia, unspecified organism Status: Acute (4) COPD with acute exacerbation ICD Code: J44.1 - Chronic obstructive pulmonary disease with (acute) exacerbation (5) Diabetes ICD Code: E11.9 - Type 2 diabetes mellitus without complications Status: Acute (6) Hypertension ICD Code: I10 - Hypertension Status: Acute (7) Acute on chronic kidney failure ICD Code: N17.9 - Acute kidney failure, unspecified; N18.9 - Chronic kidney disease, unspecified Assessment and Plan NEURO: Acute metabolic encephalopathy-resolved - Sedation off. Metabolic encephalopathy resolved - CT of the head negative for acute findings, holding gabapentin RESP: Acute respiratory failure Pneumonia COPD with exacerbation Restrictive lung disease - Extubated 04/21. BiPAP use when necessary - DuoNeb every 4 hours scheduled and when necessary - IV Solu-Medrol 40 every 8-reduce to 40 q12 - Broad-spectrum antibiotics with cefepime and azithromycin CV: Chronic A. fib - All IV fluids DC'd. - Rate controlled with metoprolol home dose, resume Diltiazem - Continue Eliquis MAY NEED ADJUSTMENT OF MEDS FOR METOPROLOL AND DILTIAZEM GI: - ADA renal diet. IV famotidine-DC : Acute on chronic kidney disease - Nephrology -Dr. Grewal - Monitor renal function closely. Nelson catheter. - Creatinine is improved. NO HD. ID: Severe sepsis Pneumonia - Blood sputum and urine culture, all negative to date - Empiric cefepime and azithromycin for 7-10 days HEME: - Monitor CBC, CMP, INR - Continue Eliquis ENDO: Hypothyroidism Type 2 diabetes - Continue levothyroxine, sliding-scale insulin - SSI. Levemir PROPH: - Bilateral lower extremity SCDs, Eliquis, Protonix LINES: - Utilize peripheral IVs, central line if needed PT AND OT TO EVAL AND TREAT CM CONSULT DW RENAL DR GREWAL Discharge Planning PT AND OT, MAY NEED PULM CONTINUE CARDIZEM AND METOPROLOL Problem Qualifiers (1) Pneumonia: (2) Diabetes: Boubacar Nielsen DO Apr 24, 2017 10:15
[2017-04-24] MEDS ORDERED: DILTIAZEM HCL 60 MG TAB PO ONE (13:15)
[2017-04-24 14:51] LABS: BASOPHIL # 0.1 TH/MM3 (0-0.2); BASOPHIL % 0.4 % (0.0-2.0); HEMO FLAGS DIFF FINAL; LYMPH % 2.6 % (9.0-44.0); LYMPHOCYTE # 0.3 TH/MM3 (1.0-4.8); MEAN CELL VOLUME 94.3 FL (80.0-100.0); MEAN CORPUSCULAR HEMOGLOBIN 29.7 PG (27.0-34.0); MEAN CORPUSCULAR HGB CONC 31.5 % (32.0-36.0); MONO % 6.8 % (0.0-8.0); NEUT % 90.2 % (16.0-70.0); PLATELET COUNT 189 TH/MM3 (150-450); RED BLOOD COUNT 3.07 MIL/MM3 (4.00-5.30); RED CELL DISTRIBUTION WIDTH 15.5 % (11.6-17.2); WHITE BLOOD COUNT 13.2 TH/MM3 (4.0-11.0)
[2017-04-24 15:30] LABS: ALKALINE PHOSPHATASE 84 U/L (45-117); ALT (GPT) 31 U/L (10-53); ANION GAP 11 MEQ/L (5-15); AST (GOT) 19 U/L (15-37); BICARBONATE 22.4 MEQ/L (21.0-32.0); BLOOD UREA NITROGEN 68 MG/DL (7-18); CHLORIDE 103 MEQ/L (98-107); FREE T4 1.01 NG/DL (0.76-1.46); GLOMERULAR FILTRATION RATE 17 ML/MIN (>89); MAGNESIUM 2.2 MG/DL (1.5-2.5); POTASSIUM 4.3 MEQ/L (3.5-5.1); SODIUM (NA) 136 MEQ/L (136-145); TOTAL BILIRUBIN ADULT 0.2 MG/DL (0.2-1.0)
--- NOTE | 2017-04-24 17:55 | EKG ---
Date Performed: 04/24/2017 Time Performed: 10:50:46 PTAGE: 82 years EKG: ATRIAL FLUTTER/TACHYCARDIA WITH RAPID VENTRICULAR RESPONSE ABNORMAL QRS-T ANGLE ABNORMAL EC G Compared to the PREVIOUS TRACING atrial flutter has replaced Sinus rhythm PREVIOUS TRACIN04/19/2017 06.30 DOCTOR: Ernie Carlisle Interpretating Date/Time 04/24/2017 17:53:23
[2017-04-24] MEDS: ATORVASTATIN 20 MG TAB PO SCH (20:40)
[2017-04-24 22:36] LABS: HEMOGLOBIN A1a 1.7 %; HEMOGLOBIN Ao 81.1 %; HEMOGLOBIN F 1.6 %; HEMOGLOBIN LA1C 3.1 %; HEMOGLOBIN P3 4.5 %
[2017-04-25] VITALS (14 sets, daily range): BP systolic 109–132; BP diastolic 72–83; PULSE 120–130; RESP 15–22; TEMP 98.2–98.6; O2SAT 96–100
[2017-04-25] MEDS: INSULIN ASPART SUPPLEMENTAL SCALE SQ SCH ×5 (01:00→21:21)
[2017-04-25] MEDS: METOPROLOL TARTRATE 5 MG/5 ML VIAL IV PUSH PRN (02:15)
[2017-04-25] MEDS: RESP: ALBUTEROL 2.5 MG/IPRATROPIUM 0.5 MG NEB (SCH) NEB ×4 (03:08→21:19)
[2017-04-25] MEDS: CHLORHEXIDINE GLUCONATE 2 % 1 PACK (2 CLOTHS) TOP SCH (04:00)
[2017-04-25] MEDS: LEVOTHYROXINE SODIUM 125 MCG TAB PO SCH (05:28)
[2017-04-25 07:19] LABS: AUTOMATED NEUTROPHIL # 15.7 TH/MM3 (1.8-7.7); BASOPHIL # 0.1 TH/MM3 (0-0.2); BASOPHIL % 0.3 % (0.0-2.0); HEMATOCRIT 33.6 % (35.0-46.0); HEMO FLAGS DIFF FINAL; LYMPH % 2.4 % (9.0-44.0); LYMPHOCYTE # 0.4 TH/MM3 (1.0-4.8); MEAN CELL VOLUME 94.1 FL (80.0-100.0); MEAN CORPUSCULAR HEMOGLOBIN 29.6 PG (27.0-34.0); MEAN CORPUSCULAR HGB CONC 31.5 % (32.0-36.0); MONO % 3.2 % (0.0-8.0); NEUT % 94.1 % (16.0-70.0); PLATELET COUNT 187 TH/MM3 (150-450); RED BLOOD COUNT 3.57 MIL/MM3 (4.00-5.30); RED CELL DISTRIBUTION WIDTH 14.9 % (11.6-17.2); WHITE BLOOD COUNT 16.7 TH/MM3 (4.0-11.0)
[2017-04-25 07:48] LABS: ALKALINE PHOSPHATASE 96 U/L (45-117); ALT (GPT) 31 U/L (10-53); ANION GAP 10 MEQ/L (5-15); AST (GOT) 14 U/L (15-37); BICARBONATE 22.2 MEQ/L (21.0-32.0); BLOOD UREA NITROGEN 70 MG/DL (7-18); CHLORIDE 105 MEQ/L (98-107); FREE T4 1.01 NG/DL (0.76-1.46); GLOMERULAR FILTRATION RATE 16 ML/MIN (>89); MAGNESIUM 2.3 MG/DL (1.5-2.5); POTASSIUM 4.8 MEQ/L (3.5-5.1); SODIUM (NA) 137 MEQ/L (136-145); TOTAL BILIRUBIN ADULT 0.3 MG/DL (0.2-1.0)
[2017-04-25] MEDS: CHLORHEXIDINE 0.12% (ORAL KIT) 15 ML CUP MT SCH ×2 (08:00→20:00)
[2017-04-25] MEDS: CEFEPIME INJ 2,000 MG in SODIUM CHLORIDE 0.9% INJ 100 ML IV SCH (09:31)
[2017-04-25] MEDS: methylPREDNISolone SOD SUCC 40 MG/1 ML VIAL IV PUSH SCH ×2 (09:32→21:19)
[2017-04-25] MEDS: METOPROLOL TARTRATE 50 MG TAB PO SCH ×2 (09:32→21:20)
[2017-04-25] MEDS: CHOLECALCIFEROL (VIT D3) 400 UNIT TAB PO SCH ×2 (09:32→21:19)
[2017-04-25] MEDS: CALCITRIOL 0.25 MCG CAP PO SCH (09:32)
[2017-04-25] MEDS: MULTIVITAMINS/MINERALS THERAPEUTIC TAB PO SCH ×2 (09:32→21:19)
[2017-04-25] MEDS: SODIUM CHLORIDE 0.9% FLUSH 10 ML FLUSH IV FLUSH SCH ×2 (09:32→21:20)
[2017-04-25] MEDS: PANTOPRAZOLE SOD 20 MG DELAYED RELEASE TAB PO SCH ×2 (09:33→21:19)
[2017-04-25] MEDS: DILTIAZEM-CD 180 MG CAP ER PO SCH (09:34)
[2017-04-25] MEDS: APIXABAN 2.5 MG TABLET PO SCH ×2 (09:34→21:20)
[2017-04-25] MEDS: GABAPENTIN 100 MG CAP PO SCH ×2 (09:37→21:19)
[2017-04-25] MEDS: INSULIN DETEMIR 100 UNITS/ML VIAL SQ SCH ×2 (09:37→21:21)
--- NOTE | 2017-04-25 09:43 | HHI.PR ---
Subjective Remarks The patient is an 82 year old female past with past medical history significant for hypertension, atrial fibrillation, diabetes mellitus, obesity, hypothyroidism, hyperlipidemia, diabetic neuropathy, who was seen in ED 3 days ago bronchospasm. She has COPD/Asthma and restrictive lung disease related to her obesity. Patient was treated for reactive airway disease, given breathing treatments and was discharged on as needed inhalers. Patient was brought in today by her as she was having shortness of breath and on the way to the ED when she slumped over in the car. In the emergency department she showed agonal breathing, she was intubated for airway protection emergently. Patient was given Solu-Medrol and breathing treatments and was placed on the mechanical ventilation. Chest x-ray showed bilateral infiltrates concerning for pneumonia. CT of the head was negative. I evaluated the patient in the ICU. She is on minimal sedation and mild attempts to wake up and intermittently tries to follows commands. She still on high oxygen requirement FiO2 is 60% with a PEEP of 5. I have increased the PEEP to 10. I have started the patient on scheduled IV Solu-Medrol, DuoNeb breathing treatments, cefepime and azithromycin for probable pneumonia. 04/20 Remains intubated, off sedation following commands. Currently FiO2 had been weaned to 40%. Urine output 950 ml since admission. Start SBT, Bumex 1 mg IV x1. 04/21: Tolerating CPAP better today, Appears calm following commands. UO adequate, though creat increasing. Cultures remain negative 04/22: Extubated yesterday required BiPAP overnight. Currently on nasal cannula slightly tachypneic but able to talk in full sentences maintaining oxygen saturation 04/23: Breathing more comfortably today on nasal cannula. Daughter At the bedside. Urine output adequate, creatinine has slightly improved 04/24 PATIENT TRANSFERRED TO OUR SERVICE TODAY STILL HAVING POORLY CONTROLLED AFIB CONTINUE ON CARDIZEM AND METOPROLOL WILL GIVE CARDIZEM PUSH MAY NEED BOTH CARDIZEM AND METOPROLOL INCREASED PT AND OT AND CM TO EVAL AND TREAT ROZINA GREWAL OF NEPHROLOGY 04/25 CARDIZEM HAS BEEN ADJUSTED ROZINA RN AND PATIENT WORKED WITH PT CAN GO TO FLOOR TRANSFER TO WITH TELE Objective Vitals Vital Signs Date Time Temp Pulse Resp B/P (MAP) Pulse Ox O2 Delivery O2 Flow Rate FiO2 04/25/17 07:00 95 Nasal Cannula 4.00 04/25/17 06:00 129 04/25/17 04:00 126 04/25/17 04:00 98.6 127 21 109/77 (88) 99 04/25/17 02:00 127 04/25/17 00:00 125 04/25/17 00:00 98.6 125 15 122/72 (89) 100 04/24/17 22:00 126 04/24/17 21:08 100 Nasal Cannula 2.50 04/24/17 20:00 98.8 127 22 131/66 (87) 98 04/24/17 20:00 127 04/24/17 19:00 95 Nasal Cannula 4.00 04/24/17 18:00 125 28 98 04/24/17 18:00 125 04/24/17 17:00 99 23 100 04/24/17 16:00 98.8 04/24/17 16:00 125 04/24/17 16:00 125 24 100 04/24/17 15:00 124 04/24/17 14:25 109 04/24/17 14:00 109 04/24/17 13:00 105 15 100 04/24/17 13:00 105 04/24/17 12:00 112 19 99 04/24/17 12:00 112 04/24/17 11:00 134 04/24/17 11:00 134 16 100 04/24/17 10:00 143 16 98 04/24/17 10:00 143 I/O 04/24/17 04/24/17 04/24/17 04/25/17 04/25/17 04/25/17 07:00 15:00 23:00 07:00 15:00 23:00 Intake Total 240 ml 1200 ml 300 ml Output Total 550 ml 850 ml 700 ml Balance -310 ml 350 ml -400 ml Intake Oral 240 ml 1200 ml 300 ml Output Urine Total 550 ml 850 ml 700 ml # Bowel Movements 0 0 0 Result Diagram: 04/25/1762104/25/17611 Other Results Laboratory Tests Test 04/22/17 14:57 04/23/17 06:04 04/24/17 14:33 04/25/17 06:12 Blood Urea Nitrogen 50 MG/DL 54 MG/DL 68 MG/DL 70 MG/DL Creatinine 3.02 MG/DL 2.89 MG/DL 3.20 MG/DL 3.30 MG/DL Random Glucose 178 MG/DL 176 MG/DL 260 MG/DL 136 MG/DL Total Protein 6.8 GM/DL 7.4 GM/DL 7.1 GM/DL 7.4 GM/DL Albumin 2.8 GM/DL 2.9 GM/DL 2.7 GM/DL 2.7 GM/DL Calcium Level 8.0 MG/DL 8.6 MG/DL 8.9 MG/DL 8.6 MG/DL Alkaline Phosphatase 97 U/L 91 U/L 84 U/L 96 U/L Aspartate Amino Transf (AST/SGOT) 24 U/L 21 U/L 19 U/L 14 U/L Alanine Aminotransferase (ALT/SGPT) 21 U/L 25 U/L 31 U/L 31 U/L Total Bilirubin 0.4 MG/DL 0.4 MG/DL 0.2 MG/DL 0.3 MG/DL Sodium Level 145 MEQ/L 138 MEQ/L 136 MEQ/L 137 MEQ/L Potassium Level 4.1 MEQ/L 3.6 MEQ/L 4.3 MEQ/L 4.8 MEQ/L Chloride Level 112 MEQ/L 106 MEQ/L 103 MEQ/L 105 MEQ/L Carbon Dioxide Level 20.1 MEQ/L 20.4 MEQ/L 22.4 MEQ/L 22.2 MEQ/L Anion Gap 13 MEQ/L 12 MEQ/L 11 MEQ/L 10 MEQ/L Estimat Glomerular Filtration Rate 18 ML/MIN 19 ML/MIN 17 ML/MIN 16 ML/MIN White Blood Count 13.9 TH/MM3 13.2 TH/MM3 Red Blood Count 3.05 MIL/MM3 3.07 MIL/MM3 Hemoglobin 8.9 GM/DL 9.1 GM/DL Hematocrit 28.4 % 29.0 % Mean Corpuscular Volume 93.2 FL 94.3 FL Mean Corpuscular Hemoglobin 29.4 PG 29.7 PG Mean Corpuscular Hemoglobin Concent 31.5 % 31.5 % Red Cell Distribution Width 15.3 % 15.5 % Platelet Count 188 TH/MM3 189 TH/MM3 Mean Platelet Volume 8.3 FL 8.5 FL Neutrophils (%) (Auto) 91.8 % 90.2 % Lymphocytes (%) (Auto) 2.1 % 2.6 % Monocytes (%) (Auto) 5.8 % 6.8 % Eosinophils (%) (Auto) 0.2 % 0.0 % Basophils (%) (Auto) 0.1 % 0.4 % Neutrophils # (Auto) 12.7 TH/MM3 12.0 TH/MM3 Lymphocytes # (Auto) 0.3 TH/MM3 0.3 TH/MM3 Monocytes # (Auto) 0.8 TH/MM3 0.9 TH/MM3 Eosinophils # (Auto) 0.0 TH/MM3 0.0 TH/MM3 Basophils # (Auto) 0.0 TH/MM3 0.1 TH/MM3 CBC Comment AUTO DIFF DIFF FINAL Differential Total Cells Counted 100 Neutrophils % (Manual) 89 % Band Neutrophils % 2 % Lymphocytes % 3 % Monocytes % 3 % Neutrophils # (Manual) 13.1 TH/MM3 Metamyelocytes 2 % Myelocytes 1 % Differential Comment FINAL DIFF MANUAL Platelet Estimate NORMAL Platelet Morphology Comment NORMAL Phosphorus Level 4.5 MG/DL 4.5 MG/DL Magnesium Level 2.2 MG/DL 2.3 MG/DL Hemoglobin A1c 6.4 % Free Thyroxine 1.01 NG/DL 1.01 NG/DL Thyroid Stimulating Hormone 3rd Gen 0.655 uIU/ML 0.495 uIU/ML Test 04/25/17 06:22 White Blood Count 16.7 TH/MM3 Red Blood Count 3.57 MIL/MM3 Hemoglobin 10.6 GM/DL Hematocrit 33.6 % Mean Corpuscular Volume 94.1 FL Mean Corpuscular Hemoglobin 29.6 PG Mean Corpuscular Hemoglobin Concent 31.5 % Red Cell Distribution Width 14.9 % Platelet Count 187 TH/MM3 Mean Platelet Volume 9.0 FL Neutrophils (%) (Auto) 94.1 % Lymphocytes (%) (Auto) 2.4 % Monocytes (%) (Auto) 3.2 % Eosinophils (%) (Auto) 0.0 % Basophils (%) (Auto) 0.3 % Neutrophils # (Auto) 15.7 TH/MM3 Lymphocytes # (Auto) 0.4 TH/MM3 Monocytes # (Auto) 0.5 TH/MM3 Eosinophils # (Auto) 0.0 TH/MM3 Basophils # (Auto) 0.1 TH/MM3 CBC Comment DIFF FINAL Differential Comment Imaging Last Impressions Chest X-Ray 04/23/17 0600 Signed Impressions: Service Date/Time: Sunday, April 23, 2017 04:17 - CONCLUSION: 1. Suboptimal single view study with mild motion artifact. 2. No significant change in the bibasilar opacities. Guevara Crowell MD Renal Ultrasound 04/20/17 0000 Signed Impressions: Service Date/Time: April 15:07 - CONCLUSION: 1. There is no hydronephrosis. 2. Stable 8mm nonobstructing left renal stone. Duncan Avery MD Head CT 04/19/17 0702 Signed Impressions: Service Date/Time: Wednesday, April 19, 2017 07:29 - CONCLUSION: 1. Cerebral white matter hypodensity characteristic of chronic microvascular ischemic disease. 2. No evidence of acute infarct, hemorrhage, mass or edema. Renato Coughlin MD Objective Remarks GENERAL: AWAKE ALERT AND ORIENTED, TALKATIVE AND COOPERATIVE SKIN: Warm and dry. HEAD: Atraumatic. Normocephalic. EYES: Pupils equal and round. No scleral icterus. No injection or drainage. EOMI ENT: No nasal bleeding or discharge. Mucous membranes pink and moist.TONGUE MIDLINE NECK: Trachea midline. No JVD. NECK IS SUPPLE CARDIOVASCULAR: IRRegular rate and rhythm. S1, S2 NO S3 OR S4 NO HEAVE OR THRILL RESPIRATORY: No accessory muscle use. FEW RHONCHI BL. Breath sounds equal bilaterally. GASTROINTESTINAL: Abdomen soft, non-tender, nondistended. Hepatic and splenic margins not palpable. OBESE MUSCULOSKELETAL: Extremities without clubbing, cyanosis, or edema. No obvious deformities. NEUROLOGICAL: Awake and alert. No obvious cranial nerve deficits. Motor grossly within normal limits. 4 out of 5 muscle strength in the arms and legs. Normal speech. PSYCHIATRIC: Appropriate mood and affect; insight and judgment normal. Procedures SP VDRF SP INTUBATION AND EXTUBATION Medications and IVs Current Medications Propofol 100 ml @ As Directed STK-MED ONCE .ROUTE ; Start 04/19/17 at 06:24; Stop 04/19/17 at 06:25; Status DC Etomidate (Amidate Inj) 20 mg ONCE ONCE IVP Last administered on 04/19/17 06 :20; Start 04/19/17 at 06:30; Stop 04/19/17 at 06:31; Status DC Succinylcholine Chloride (Quelicin Inj) 100 mg ONCE ONCE IV PUSH Last administered on 04/19/17 06:20; Start 04/19/17 at 06:30; Stop 04/19/17 at 06 :31; Status DC Albuterol/ Ipratropium (Duoneb Neb) 1 ampule Q15M INH Last administered on 07:07; Start 04/19/17 at 06:30; Stop 04/19/17 at 07:01; Status DC Sodium Chloride (NS Flush) 2 ml UNSCH PRN IVF FLUSH AFTER USING IV ACCESS; Start 04/19/17 at 06:30; Stop 04/19/17 at 08:59; Status DC Propofol 100 ml @ 0 mls/hr TITRATE PRN IV Ordered RASS Last administered on 06:30; Start 04/19/17 at 06:30; Stop 04/19/17 at 08:59; Status DC Sodium Chloride 1,000 ml @ 999 mls/hr BOLUS ONCE IV Last administered on 07:15; Start 04/19/17 at 07:15; Stop 04/19/17 at 08:15; Status DC Sodium Chloride 1,000 ml @ 999 mls/hr BOLUS ONCE IV Last administered on 07:30; Start 04/19/17 at 07:30; Stop 04/19/17 at 08:30; Status DC Propofol 100 ml @ 3.6 mls/hr TITRATE PRN IV SEDATION Last administered on 02:09; Start 04/19/17 at 08:30; Stop 04/22/17 at 11:35; Status DC Sodium Chloride (NS Flush) 2 ml UNSCH PRN IV FLUSH FLUSH AFTER USING IV ACCESS Last administered on 04/22/17 18:02; Start 04/19/17 at 08:30 Sodium Chloride (NS Flush) 2 ml BID IV FLUSH Last administered on 04/25/17 09 :32; Start 04/19/17 at 09:00 Albuterol/ Ipratropium (Duoneb Neb) 1 ampule Q6HR NEB NEB Last administered on 04/22/17 08:39; Start 04/19/17 at 10:00; Stop 04/22/17 at 11:34; Status DC Albuterol/ Ipratropium (Duoneb Neb) 1 ampule Q2HR NEB PRN INH SHORTNESS OF BREATH Last administered on 04/20/17 12:34; Start 04/19/17 at 08:30 Chlorhexidine Gluconate (Peridex 0.12% Liq) 15 ml BID@08,20 MT Last administered on 04/22/17 10:04; Start 04/19/17 at 20:00; Stop 04/22/17 at 18 :11; Status DC Pantoprazole Sodium (Protonix Inj) 40 mg DAILY IV PUSH Last administered on 09:53; Start 04/19/17 at 09:00; Stop 04/23/17 at 16:47; Status DC Miscellaneous Information 1 [id number] ; Start 04/19/17 at 08:30 Chlorhexidine Gluconate (Chlorhexidine 2% Cloth) Taper DAILY@04 TOP Last administered on 04/25/17 04:00; Start 04/20/17 at 04:00; Stop 04/16/18 at 03 :59 Chlorhexidine Gluconate (Chlorhexidine 2% Cloth) 3 pack UNSCH PRN TOP HYGIENIC CARE; Start 04/19/17 at 08:30 Methylprednisolone Sodium Succinate (SoluMEDROL INJ) 60 mg Q6H IV PUSH Last administered on 04/22/17 09:58; Start 04/19/17 at 09:00; Stop 04/22/17 at 11 :35; Status DC Cefepime HCl 2000 mg/Sodium Chloride 100 ml @ 200 mls/hr Q12H IV Last administered on 04/20/17 07:53; Start 04/19/17 at 09:00; Stop 04/20/17 at 13 :58; Status DC Azithromycin 500 mg/Sodium Chloride 250 ml @ 250 mls/hr Q24H IV Last administered on 04/23/17 15:28; Start 04/19/17 at 14:00; Stop 04/23/17 at 16 :47; Status DC Sodium Chloride 1,000 ml @ 999 mls/hr BOLUS ONCE IV Last administered on 11:00; Start 04/19/17 at 13:30; Stop 04/19/17 at 14:30; Status DC Sodium Chloride 1,000 ml @ 999 mls/hr BOLUS ONCE IV ; Start 04/19/17 at 13:30 ; Stop 04/19/17 at 14:30; Status DC Apixaban (Eliquis) 2.5 mg BID PO Last administered on 04/25/17 09:34; Start 04/19/17 at 21:00 Atorvastatin Calcium (Lipitor) 20 mg HS PO Last administered on 04/24/17 20: 40; Start 04/19/17 at 21:00 Calcitriol (Rocaltrol) 0.25 mcg DAILY PO Last administered on 04/25/17 09:32 ; Start 04/20/17 at 09:00 Levothyroxine Sodium (Synthroid) 125 mcg DAILY@0600 PO Last administered on 05:28; Start 04/20/17 at 06:00 Metoprolol Tartrate (Lopressor) 50 mg BID PO Last administered on 04/25/17 09 :32; Start 04/19/17 at 21:00 Cholecalciferol (Vitamin D3) 400 units BID PO Last administered on 04/25/17 09:32; Start 04/19/17 at 21:00 Influenza Virus Vaccine (Flu (Quadrivalent) Vaccine Inj) 0.5 ml ONCE ONCE IM Last administered on 04/20/17 09:56; Start 04/20/17 at 10:00; Stop 04/20/17 at 10:01; Status DC Sodium Chloride 1,000 ml @ 75 mls/hr [id number] IV Last administered on 21:20; Start 04/19/17 at 15:00; Stop 04/22/17 at 11:35; Status DC Insulin Aspart (NovoLOG SUPPLEMENTAL SCALE) 1 Q4H SQ Last administered on 04/25 05:28; Start 04/19/17 at 17:00 Bumetanide (Bumex Inj) 1 mg STK-MED ONCE .ROUTE ; Start 04/20/17 at 11:08; Stop 04/20/17 at 11:09; Status DC Bumetanide (Bumex Inj) 1 mg NOW ONCE IV PUSH Last administered on 04/20/17 15:46; Start 04/20/17 at 13:15; Stop 04/20/17 at 13:16; Status DC Cefepime HCl 2000 mg/Sodium Chloride 100 ml @ 200 mls/hr DAILY IV Last administered on 04/25/17 09:31; Start 04/21/17 at 09:00 Chlorhexidine Gluconate (Peridex 0.12% Liq) 15 ml BID@08,20 MT Last administered on 04/24/17 08:00; Start 04/20/17 at 20:00 Midazolam HCl 100 ml @ 2 mls/hr TITRATE PRN IV SEDATION; Start 04/20/17 at 14: 30; Stop 04/22/17 at 11:35; Status DC Fentanyl Citrate 250 ml @ 5 mls/hr TITRATE PRN IV SEDATION Last administered on 04/20/17 20:36; Start 04/20/17 at 14:30; Stop 04/22/17 at 11:35; Status DC Hydralazine HCl (Apresoline Inj) 20 mg Q4H PRN IV PUSH SYS BP GREATER THAN 170 MMHG Last administered on 04/22/17 18:02; Start 04/21/17 at 11:30 Insulin Detemir (Levemir Inj) 5 units Q12HR SQ Last administered on 04/24/17 20:43; Start 04/21/17 at 11:30 Bumetanide (Bumex Inj) 2 mg STK-MED ONCE .ROUTE ; Start 04/21/17 at 13:31; Stop 04/21/17 at 13:32; Status DC Lorazepam (Ativan Inj) 2 mg STK-MED ONCE .ROUTE ; Start 04/21/17 at 13:51; Stop 04/21/17 at 13:52; Status DC Morphine Sulfate (Morphine Inj) 2 mg ONCE ONCE IV PUSH Last administered on 14:15; Start 04/21/17 at 14:15; Stop 04/21/17 at 14:16; Status DC Lorazepam (Ativan Inj) 1 mg ONCE ONCE IV PUSH Last administered on 04/21/17 14:24; Start 04/21/17 at 14:15; Stop 04/21/17 at 14:16; Status DC Bumetanide (Bumex Inj) 2 mg NOW ONCE IV PUSH Last administered on 04/21/17 14:24; Start 04/21/17 at 14:15; Stop 04/21/17 at 14:16; Status DC Morphine Sulfate (Morphine Inj) 4 mg STK-MED ONCE .ROUTE ; Start 04/21/17 at 14 :08; Stop 04/21/17 at 14:09; Status DC Albuterol/ Ipratropium (Duoneb Neb) 1 ampule Q6HR NEB NEB Last administered on 04/24/17 21:06; Start 04/22/17 at 16:00 Methylprednisolone Sodium Succinate (SoluMEDROL INJ) 40 mg Q8H IV PUSH Last administered on 04/23/17 09:53; Start 04/22/17 at 17:00; Stop 04/23/17 at 16 :47; Status DC Morphine Sulfate (Morphine Inj) 1 mg Q4H PRN IV PAIN SCALE 1 TO 10 Last administered on 04/23/17 23:29; Start 04/22/17 at 18:00 Morphine Sulfate (Morphine Inj) 1 mg Q4H PRN IV PAIN 1-10; Start 04/22/17 at 18:15; Stop 04/22/17 at 18:15; Status DC Diltiazem HCl (Cardizem Inj) 10 mg NOW ONCE IV Last administered on 12:31; Start 04/23/17 at 12:15; Stop 04/23/17 at 12:16; Status DC Diltiazem HCl (Cardizem Cd) 300 mg NOW ONCE PO Last administered on 12:15; Start 04/23/17 at 12:15; Stop 04/23/17 at 12:16; Status DC Diltiazem HCl (Cardizem Cd) 300 mg DAILY PO Last administered on 04/24/17 08: 23; Start 04/24/17 at 09:00; Stop 04/24/17 at 13:07; Status DC Gabapentin (Neurontin) 100 mg BID PO Last administered on 04/24/17 08:29; Start 04/23/17 at 13:00; Stop 04/24/17 at 09:22; Status DC Methylprednisolone Sodium Succinate (SoluMEDROL INJ) 40 mg Q12H IV PUSH Last administered on 04/25/17 09:32; Start 04/23/17 at 21:00 Diltiazem HCl (Cardizem Inj) 10 mg STAT ONCE IV Last administered on 22:14; Start 04/23/17 at 22:15; Stop 04/23/17 at 22:16; Status DC Metoprolol Tartrate (Lopressor Inj) 5 mg Q5M PRN IV PUSH HR>100 Last administered on 04/25/17 02:15; Start 04/24/17 at 02:15 Diltiazem HCl (Cardizem Inj) 15 mg ONCE ONCE IV Last administered on 10:10; Start 04/24/17 at 09:15; Stop 04/24/17 at 09:16; Status DC Gabapentin (Neurontin) 100 mg BID PO Last administered on 04/24/17 20:46; Start 04/24/17 at 21:00 Multivitamins/ Minerals Therapeutic (Theragran M Tab) 1 tab BID PO Last administered on 04/25/17 09:32; Start 04/24/17 at 10:00 Pantoprazole Sodium (Protonix) 20 mg BID PO Last administered on 04/25/17 09: 33; Start 04/24/17 at 09:00 Diltiazem HCl (Cardizem Cd) 360 mg DAILY PO Last administered on 04/25/17 09: 34; Start 04/25/17 at 09:00 Diltiazem HCl (Cardizem) 60 mg ONCE ONCE PO Last administered on 04/24/17 14 :37; Start 04/24/17 at 13:15; Stop 04/24/17 at 13:35; Status DC A/P Problem List: (1) Acute hypoxemic respiratory failure ICD Code: J96.01 - Acute respiratory failure with hypoxia Status: Acute (2) Acute metabolic encephalopathy ICD Code: G93.41 - Metabolic encephalopathy (3) Pneumonia ICD Code: J18.9 - Pneumonia, unspecified organism Status: Acute (4) COPD with acute exacerbation ICD Code: J44.1 - Chronic obstructive pulmonary disease with (acute) exacerbation (5) Diabetes ICD Code: E11.9 - Type 2 diabetes mellitus without complications Status: Acute (6) Hypertension ICD Code: I10 - Hypertension Status: Acute (7) Acute on chronic kidney failure ICD Code: N17.9 - Acute kidney failure, unspecified; N18.9 - Chronic kidney disease, unspecified Assessment and Plan NEURO: Acute metabolic encephalopathy-resolved - Sedation off. Metabolic encephalopathy resolved - CT of the head negative for acute findings, holding gabapentin RESP: Acute respiratory failure Pneumonia COPD with exacerbation Restrictive lung disease - Extubated 04/21. BiPAP use when necessary - DuoNeb every 4 hours scheduled and when necessary - IV Solu-Medrol 40 every 8-reduce to 40 q12 - Broad-spectrum antibiotics with cefepime and azithromycin CV: Chronic A. fib - All IV fluids DC'd. - Rate controlled with metoprolol home dose, resume Diltiazem - Continue Eliquis MAY NEED ADJUSTMENT OF MEDS FOR METOPROLOL AND DILTIAZEM INCREASE CARDIZEM TO 360 MG DAILY MAY NEED INCREASE TOMORROW IF NOT STABLE GI: - ADA renal diet. IV famotidine-DC : Acute on chronic kidney disease - Nephrology -Dr. Grewal - Monitor renal function closely. Nelson catheter. - Creatinine is improved. NO HD. ID: Severe sepsis Pneumonia - Blood sputum and urine culture, all negative to date - Empiric cefepime and azithromycin for 7-10 days HEME: - Monitor CBC, CMP, INR - Continue Eliquis ENDO: Hypothyroidism Type 2 diabetes - Continue levothyroxine, sliding-scale insulin - SSI. Levemir PROPH: - Bilateral lower extremity SCDs, Eliquis, Protonix LINES: - Utilize peripheral IVs, central line if needed PT AND OT TO EVAL AND TREAT CM CONSULT ROZINA RN AND PT TRANSFER OUT OF ICU Discharge Planning PT AND OT, MAY NEED PULM CONTINUE TO INCREASE CARDIZEM AND METOPROLOL NEEDED Problem Qualifiers (1) Pneumonia: (2) Diabetes: Boubacar Nielsen DO Apr 25, 2017 09:43
--- NOTE | 2017-04-25 12:46 | HHI.NPPN ---
Subjective History of Present Illness Patient is a 82-year-old with sepsis, COPD, intubation, diabetes, acute renal failure and chronic kidney disease. Additional Remarks Patient is alert, and now with nasal cannula, not in distress, clinically same. Objective Data Data 04/25/17 04/26/17 19:00 07:00 Output Total 500 ml Balance -500 ml Output Urine Total 500 ml # Bowel Movements 1 Vital Signs Date Time Temp Pulse Resp B/P (MAP) Pulse Ox O2 Delivery O2 Flow Rate FiO2 04/25/17 12:00 98.3 128 20 123/82 (96) 97 04/25/17 12:00 128 04/25/17 10:06 100 Nasal Cannula 2.00 04/25/17 10:00 130 04/25/17 08:00 129 04/25/17 08:00 98.6 129 22 129/83 (98) 96 04/25/17 07:00 95 Nasal Cannula 4.00 04/25/17 06:00 129 04/25/17 04:00 126 04/25/17 04:00 98.6 127 21 109/77 (88) 99 04/25/17 02:00 127 04/25/17 00:00 125 04/25/17 00:00 98.6 125 15 122/72 (89) 100 04/24/17 22:00 126 04/24/17 21:08 100 Nasal Cannula 2.50 04/24/17 20:00 98.8 127 22 131/66 (87) 98 04/24/17 20:00 127 04/24/17 19:00 95 Nasal Cannula 4.00 04/24/17 18:00 125 28 98 04/24/17 18:00 125 04/24/17 17:00 99 23 100 04/24/17 16:00 98.8 04/24/17 16:00 125 04/24/17 16:00 125 24 100 04/24/17 15:00 124 04/24/17 14:25 109 04/24/17 14:00 109 04/24/17 13:00 105 15 100 04/24/17 13:00 105 -: 04/25/17 0622 04/25/17 0612 Physical Exam General Appearance: No Acute Distress, Comfortable, Obese Neck Neck Exam: Neck Supple Pulmonary Resp Exam: Decreased Bases Cardiology CV Exam: Arrhythmia Gastrointestinal/Abdomen GI Exam: Soft, Non-Tender, Bowel Sounds Present Extremeties Extremities Exam: Trace Edema Neurologic Neuro Exam: Alert, Awake Psychiatric Psych Exam: Appropriate Responses Assessment/Plan Problem List: (1) Acute on chronic renal insufficiency ICD Codes: N28.9 - Disorder of kidney and ureter, unspecified; N18.9 - Chronic kidney disease, unspecified Status: Acute Plan: Patient is in acute renal failure and had chronic kidney disease non oliguric , urine out put is adequate. Creatinine is higher 3.3 I told her to follow as out patient as CKD advancing to stage 4 she also has A fib (2) Hypertension ICD Codes: I10 - Hypertension Status: Acute Plan: Blood pressure was low requiring fluid bolus (3) Diabetes ICD Codes: E11.9 - Type 2 diabetes mellitus without complications Status: Acute Plan: Continue to monitor (4) COPD with acute exacerbation ICD Codes: J44.1 - Chronic obstructive pulmonary disease with (acute) exacerbation Plan: extubated Problem Qualifiers (1) Diabetes: Tonja Grewal MD Apr 25, 2017 12:46
[2017-04-25 17:33] LABS: HEMOGLOBIN A1b 0.9 %; HEMOGLOBIN Ao 83.9 %; HEMOGLOBIN F 1.3 %; HEMOGLOBIN P3 5.6 %
[2017-04-25] MEDS: ATORVASTATIN 20 MG TAB PO SCH (21:20)
[2017-04-26] VITALS (18 sets, daily range): BP systolic 118–142; BP diastolic 70–90; PULSE 85–130; RESP 15–27; TEMP 98.3–98.8; O2SAT 92–100
[2017-04-26] MEDS: RESP: ALBUTEROL 2.5 MG/IPRATROPIUM 0.5 MG NEB (SCH) NEB ×2 (03:04→11:48)
[2017-04-26] MEDS: INSULIN ASPART SUPPLEMENTAL SCALE SQ SCH ×6 (03:05→20:30)
[2017-04-26] MEDS: CHLORHEXIDINE GLUCONATE 2 % 1 PACK (2 CLOTHS) TOP SCH (04:00)
[2017-04-26] MEDS: CHLORHEXIDINE 0.12% (ORAL KIT) 15 ML CUP MT SCH ×2 (05:22→20:00)
[2017-04-26] MEDS: LEVOTHYROXINE SODIUM 125 MCG TAB PO SCH (05:22)
[2017-04-26 06:53] LABS: AUTOMATED NEUTROPHIL # 13.5 TH/MM3 (1.8-7.7); HEMATOCRIT 29.8 % (35.0-46.0); LYMPH % 1.8 % (9.0-44.0); LYMPHOCYTE # 0.3 TH/MM3 (1.0-4.8); MEAN CELL VOLUME 93.3 FL (80.0-100.0); MEAN CORPUSCULAR HEMOGLOBIN 29.6 PG (27.0-34.0); MEAN CORPUSCULAR HGB CONC 31.7 % (32.0-36.0); MONO % 5.8 % (0.0-8.0); NEUT % 92.4 % (16.0-70.0); PLATELET COUNT 209 TH/MM3 (150-450); RED BLOOD COUNT 3.19 MIL/MM3 (4.00-5.30); RED CELL DISTRIBUTION WIDTH 15.2 % (11.6-17.2); WHITE BLOOD COUNT 14.6 TH/MM3 (4.0-11.0)
[2017-04-26 07:08] LABS: HEMO FLAGS AUTO DIFF
[2017-04-26 07:15] LABS: ANION GAP 8 MEQ/L (5-15); AST (GOT) 9 U/L (15-37); BICARBONATE 23.8 MEQ/L (21.0-32.0); BLOOD UREA NITROGEN 79 MG/DL (7-18); CHLORIDE 103 MEQ/L (98-107); GLOMERULAR FILTRATION RATE 15 ML/MIN (>89); MAGNESIUM 2.3 MG/DL (1.5-2.5); POTASSIUM 4.4 MEQ/L (3.5-5.1); SODIUM (NA) 135 MEQ/L (136-145)
[2017-04-26 07:17] LABS: ALT (GPT) 25 U/L (10-53)
[2017-04-26 07:19] LABS: ALKALINE PHOSPHATASE 84 U/L (45-117); TOTAL BILIRUBIN ADULT 0.2 MG/DL (0.2-1.0)
[2017-04-26] MEDS: DILTIAZEM-CD 180 MG CAP ER PO SCH (08:05)
[2017-04-26] MEDS: methylPREDNISolone SOD SUCC 40 MG/1 ML VIAL IV PUSH SCH ×2 (08:05→20:31)
[2017-04-26] MEDS: CALCITRIOL 0.25 MCG CAP PO SCH (08:05)
[2017-04-26] MEDS: MULTIVITAMINS/MINERALS THERAPEUTIC TAB PO SCH ×2 (08:05→20:33)
[2017-04-26] MEDS: METOPROLOL TARTRATE 5 MG/5 ML VIAL IV PUSH PRN ×2 (08:05→08:28)
[2017-04-26] MEDS: GABAPENTIN 100 MG CAP PO SCH ×2 (08:06→20:31)
[2017-04-26] MEDS: APIXABAN 2.5 MG TABLET PO SCH ×2 (08:06→20:31)
[2017-04-26] MEDS: METOPROLOL TARTRATE 50 MG TAB PO SCH ×2 (08:06→20:33)
[2017-04-26] MEDS: SODIUM CHLORIDE 0.9% FLUSH 10 ML FLUSH IV FLUSH SCH ×2 (08:08→08:28)
[2017-04-26] MEDS: CHOLECALCIFEROL (VIT D3) 400 UNIT TAB PO SCH ×2 (08:08→20:31)
[2017-04-26] MEDS: PANTOPRAZOLE SOD 20 MG DELAYED RELEASE TAB PO SCH ×2 (08:08→20:33)
[2017-04-26] MEDS: CEFEPIME INJ 2,000 MG in SODIUM CHLORIDE 0.9% INJ 100 ML IV SCH (08:08)
[2017-04-26] MEDS: INSULIN DETEMIR 100 UNITS/ML VIAL SQ SCH ×2 (08:09→20:31)
[2017-04-26] MEDS ORDERED: DIGOXIN 0.125 MG TAB PO ONE (09:00)
[2017-04-26 10:18] LABS: ACANTHOCYTES OCC (NORMAL); OVALOCYTES 1+ (NORMAL)
[2017-04-26 10:19] LABS: PLATELET ESTIMATE SMEAR NORMAL (NORMAL); PLATELET MORPHOLOGY NORMAL (NORMAL); SCAN/DIFF AUTO DIFF CONFIRMED
--- NOTE | 2017-04-26 10:22 | HHI.PR ---
Subjective Remarks The patient is an 82 year old female past with past medical history significant for hypertension, atrial fibrillation, diabetes mellitus, obesity, hypothyroidism, hyperlipidemia, diabetic neuropathy, who was seen in ED 3 days ago bronchospasm. She has COPD/Asthma and restrictive lung disease related to her obesity. Patient was treated for reactive airway disease, given breathing treatments and was discharged on as needed inhalers. Patient was brought in today by her as she was having shortness of breath and on the way to the ED when she slumped over in the car. In the emergency department she showed agonal breathing, she was intubated for airway protection emergently. Patient was given Solu-Medrol and breathing treatments and was placed on the mechanical ventilation. Chest x-ray showed bilateral infiltrates concerning for pneumonia. CT of the head was negative. I evaluated the patient in the ICU. She is on minimal sedation and mild attempts to wake up and intermittently tries to follows commands. She still on high oxygen requirement FiO2 is 60% with a PEEP of 5. I have increased the PEEP to 10. I have started the patient on scheduled IV Solu-Medrol, DuoNeb breathing treatments, cefepime and azithromycin for probable pneumonia. 04/20 Remains intubated, off sedation following commands. Currently FiO2 had been weaned to 40%. Urine output 950 ml since admission. Start SBT, Bumex 1 mg IV x1. 04/21: Tolerating CPAP better today, Appears calm following commands. UO adequate, though creat increasing. Cultures remain negative 04/22: Extubated yesterday required BiPAP overnight. Currently on nasal cannula slightly tachypneic but able to talk in full sentences maintaining oxygen saturation 04/23: Breathing more comfortably today on nasal cannula. Daughter At the bedside. Urine output adequate, creatinine has slightly improved 04/24 PATIENT TRANSFERRED TO OUR SERVICE TODAY STILL HAVING POORLY CONTROLLED AFIB CONTINUE ON CARDIZEM AND METOPROLOL WILL GIVE CARDIZEM PUSH MAY NEED BOTH CARDIZEM AND METOPROLOL INCREASED PT AND OT AND CM TO EVAL AND TREAT ROZINA GREWAL OF NEPHROLOGY 04/25 CARDIZEM HAS BEEN ADJUSTED ROZINA RN AND PATIENT WORKED WITH PT CAN GO TO FLOOR TRANSFER TO 4 WITH TELE 04-26 patient is still not very mobile. We'll add digoxin 0.125 by mouth daily for uncontrolled heart rate Needs to be more mobile Continue on Cardizem 360 by mouth daily Can transfer when bed is available A.m. labs Has chronic renal failure Objective Vitals Vital Signs Date Time Temp Pulse Resp B/P (MAP) Pulse Ox O2 Delivery O2 Flow Rate FiO2 04/26/17 08:07 99 Nasal Cannula 2.00 04/26/17 07:00 99 Nasal Cannula 4.00 04/26/17 06:00 128 04/26/17 04:00 98.6 113 17 137/86 (103) 99 04/26/17 04:00 113 04/26/17 02:00 127 04/26/17 00:00 98.6 128 15 118/70 (86) 99 04/26/17 00:00 128 04/25/17 22:00 128 04/25/17 21:20 100 Nasal Cannula 2.00 04/25/17 20:00 129 04/25/17 20:00 98.4 129 18 132/79 (96) 100 04/25/17 19:00 99 Nasal Cannula 4.00 04/25/17 18:00 96 Nasal Cannula 4.00 04/25/17 18:00 129 04/25/17 16:00 98.2 128 19 131/81 (98) 100 04/25/17 16:00 128 04/25/17 14:00 120 04/25/17 12:00 98.3 128 20 123/82 (96) 97 04/25/17 12:00 128 I/O 04/25/17 04/25/17 04/25/17 04/26/17 04/26/17 04/26/17 07:00 15:00 23:00 07:00 15:00 23:00 Intake Total 300 ml 500 ml 100 ml Output Total 700 ml 500 ml 750 ml 900 ml Balance -400 ml -500 ml -250 ml -800 ml Intake Oral 300 ml 500 ml 100 ml Output Urine Total 700 ml 500 ml 750 ml 900 ml # Bowel Movements 0 1 0 0 Result Diagram: 04/26/1761704/26/17617 Other Results Laboratory Tests Test 04/24/17 14:33 04/25/17 06:12 04/25/17 06:22 04/26/17 06:18 White Blood Count 13.2 TH/MM3 16.7 TH/MM3 14.6 TH/MM3 Red Blood Count 3.07 MIL/MM3 3.57 MIL/MM3 3.19 MIL/MM3 Hemoglobin 9.1 GM/DL 10.6 GM/DL 9.4 GM/DL Hematocrit 29.0 % 33.6 % 29.8 % Mean Corpuscular Volume 94.3 FL 94.1 FL 93.3 FL Mean Corpuscular Hemoglobin 29.7 PG 29.6 PG 29.6 PG Mean Corpuscular Hemoglobin Concent 31.5 % 31.5 % 31.7 % Red Cell Distribution Width 15.5 % 14.9 % 15.2 % Platelet Count 189 TH/MM3 187 TH/MM3 209 TH/MM3 Mean Platelet Volume 8.5 FL 9.0 FL 8.4 FL Neutrophils (%) (Auto) 90.2 % 94.1 % 92.4 % Lymphocytes (%) (Auto) 2.6 % 2.4 % 1.8 % Monocytes (%) (Auto) 6.8 % 3.2 % 5.8 % Eosinophils (%) (Auto) 0.0 % 0.0 % 0.0 % Basophils (%) (Auto) 0.4 % 0.3 % 0.0 % Neutrophils # (Auto) 12.0 TH/MM3 15.7 TH/MM3 13.5 TH/MM3 Lymphocytes # (Auto) 0.3 TH/MM3 0.4 TH/MM3 0.3 TH/MM3 Monocytes # (Auto) 0.9 TH/MM3 0.5 TH/MM3 0.8 TH/MM3 Eosinophils # (Auto) 0.0 TH/MM3 0.0 TH/MM3 0.0 TH/MM3 Basophils # (Auto) 0.1 TH/MM3 0.1 TH/MM3 0.0 TH/MM3 CBC Comment DIFF FINAL DIFF FINAL AUTO DIFF Differential Comment AUTO DIFF CONFIRMED Blood Urea Nitrogen 68 MG/DL 70 MG/DL 79 MG/DL Creatinine 3.20 MG/DL 3.30 MG/DL 3.51 MG/DL Random Glucose 260 MG/DL 136 MG/DL 159 MG/DL Total Protein 7.1 GM/DL 7.4 GM/DL 6.9 GM/DL Albumin 2.7 GM/DL 2.7 GM/DL 2.6 GM/DL Calcium Level 8.9 MG/DL 8.6 MG/DL 9.1 MG/DL Phosphorus Level 4.5 MG/DL 4.5 MG/DL 4.6 MG/DL Magnesium Level 2.2 MG/DL 2.3 MG/DL 2.3 MG/DL Alkaline Phosphatase 84 U/L 96 U/L 84 U/L Aspartate Amino Transf (AST/SGOT) 19 U/L 14 U/L 9 U/L Alanine Aminotransferase (ALT/SGPT) 31 U/L 31 U/L 25 U/L Total Bilirubin 0.2 MG/DL 0.3 MG/DL 0.2 MG/DL Sodium Level 136 MEQ/L 137 MEQ/L 135 MEQ/L Potassium Level 4.3 MEQ/L 4.8 MEQ/L 4.4 MEQ/L Chloride Level 103 MEQ/L 105 MEQ/L 103 MEQ/L Carbon Dioxide Level 22.4 MEQ/L 22.2 MEQ/L 23.8 MEQ/L Anion Gap 11 MEQ/L 10 MEQ/L 8 MEQ/L Estimat Glomerular Filtration Rate 17 ML/MIN 16 ML/MIN 15 ML/MIN Hemoglobin A1c 6.4 % 6.4 % Free Thyroxine 1.01 NG/DL 1.01 NG/DL Thyroid Stimulating Hormone 3rd Gen 0.655 uIU/ML 0.495 uIU/ML Platelet Estimate NORMAL Platelet Morphology Comment NORMAL Ovalocytes 1+ Acanthocytes OCC Imaging Last Impressions Chest X-Ray 04/23/17 0600 Signed Impressions: Service Date/Time: Sunday, April 23, 2017 04:17 - CONCLUSION: 1. Suboptimal single view study with mild motion artifact. 2. No significant change in the bibasilar opacities. Guevara Crowell MD Renal Ultrasound 04/20/17 0000 Signed Impressions: Service Date/Time: April 15:07 - CONCLUSION: 1. There is no hydronephrosis. 2. Stable 8mm nonobstructing left renal stone. Duncan Avery MD Head CT 04/19/17 0702 Signed Impressions: Service Date/Time: Wednesday, April 19, 2017 07:29 - CONCLUSION: 1. Cerebral white matter hypodensity characteristic of chronic microvascular ischemic disease. 2. No evidence of acute infarct, hemorrhage, mass or edema. Renato Coughlin MD Objective Remarks GENERAL: AWAKE ALERT AND ORIENTED, TALKATIVE AND COOPERATIVE SKIN: Warm and dry. HEAD: Atraumatic. Normocephalic. EYES: Pupils equal and round. No scleral icterus. No injection or drainage. EOMI ENT: No nasal bleeding or discharge. Mucous membranes pink and moist.TONGUE MIDLINE NECK: Trachea midline. No JVD. NECK IS SUPPLE CARDIOVASCULAR: IRRegular rate and rhythm. S1, S2 NO S3 OR S4 NO HEAVE OR THRILL RESPIRATORY: No accessory muscle use. FEW RHONCHI BL. Breath sounds equal bilaterally. GASTROINTESTINAL: Abdomen soft, non-tender, nondistended. Hepatic and splenic margins not palpable. OBESE MUSCULOSKELETAL: Extremities without clubbing, cyanosis, or edema. No obvious deformities. NEUROLOGICAL: Awake and alert. No obvious cranial nerve deficits. Motor grossly within normal limits. 4 out of 5 muscle strength in the arms and legs. Normal speech. PSYCHIATRIC: Appropriate mood and affect; insight and judgment normal. Procedures SP VDRF SP INTUBATION AND EXTUBATION Medications and IVs Current Medications Propofol 100 ml @ As Directed STK-MED ONCE .ROUTE ; Start 04/19/17 at 06:24; Stop 04/19/17 at 06:25; Status DC Etomidate (Amidate Inj) 20 mg ONCE ONCE IVP Last administered on 04/19/17 06 :20; Start 04/19/17 at 06:30; Stop 04/19/17 at 06:31; Status DC Succinylcholine Chloride (Quelicin Inj) 100 mg ONCE ONCE IV PUSH Last administered on 04/19/17 06:20; Start 04/19/17 at 06:30; Stop 04/19/17 at 06 :31; Status DC Albuterol/ Ipratropium (Duoneb Neb) 1 ampule Q15M INH Last administered on 07:07; Start 04/19/17 at 06:30; Stop 04/19/17 at 07:01; Status DC Sodium Chloride (NS Flush) 2 ml UNSCH PRN IVF FLUSH AFTER USING IV ACCESS; Start 04/19/17 at 06:30; Stop 04/19/17 at 08:59; Status DC Propofol 100 ml @ 0 mls/hr TITRATE PRN IV Ordered RASS Last administered on 06:30; Start 04/19/17 at 06:30; Stop 04/19/17 at 08:59; Status DC Sodium Chloride 1,000 ml @ 999 mls/hr BOLUS ONCE IV Last administered on 07:15; Start 04/19/17 at 07:15; Stop 04/19/17 at 08:15; Status DC Sodium Chloride 1,000 ml @ 999 mls/hr BOLUS ONCE IV Last administered on 07:30; Start 04/19/17 at 07:30; Stop 04/19/17 at 08:30; Status DC Propofol 100 ml @ 3.6 mls/hr TITRATE PRN IV SEDATION Last administered on 02:09; Start 04/19/17 at 08:30; Stop 04/22/17 at 11:35; Status DC Sodium Chloride (NS Flush) 2 ml UNSCH PRN IV FLUSH FLUSH AFTER USING IV ACCESS Last administered on 04/22/17 18:02; Start 04/19/17 at 08:30 Sodium Chloride (NS Flush) 2 ml BID IV FLUSH Last administered on 04/26/17 08 :28; Start 04/19/17 at 09:00 Albuterol/ Ipratropium (Duoneb Neb) 1 ampule Q6HR NEB NEB Last administered on 04/22/17 08:39; Start 04/19/17 at 10:00; Stop 04/22/17 at 11:34; Status DC Albuterol/ Ipratropium (Duoneb Neb) 1 ampule Q2HR NEB PRN INH SHORTNESS OF BREATH Last administered on 04/20/17 12:34; Start 04/19/17 at 08:30 Chlorhexidine Gluconate (Peridex 0.12% Liq) 15 ml BID@08,20 MT Last administered on 04/22/17 10:04; Start 04/19/17 at 20:00; Stop 04/22/17 at 18 :11; Status DC Pantoprazole Sodium (Protonix Inj) 40 mg DAILY IV PUSH Last administered on 09:53; Start 04/19/17 at 09:00; Stop 04/23/17 at 16:47; Status DC Miscellaneous Information 1 [id number] ; Start 04/19/17 at 08:30 Chlorhexidine Gluconate (Chlorhexidine 2% Cloth) Taper DAILY@04 TOP Last administered on 04/26/17 04:00; Start 04/20/17 at 04:00; Stop 04/16/18 at 03 :59 Chlorhexidine Gluconate (Chlorhexidine 2% Cloth) 3 pack UNSCH PRN TOP HYGIENIC CARE; Start 04/19/17 at 08:30 Methylprednisolone Sodium Succinate (SoluMEDROL INJ) 60 mg Q6H IV PUSH Last administered on 04/22/17 09:58; Start 04/19/17 at 09:00; Stop 04/22/17 at 11 :35; Status DC Cefepime HCl 2000 mg/Sodium Chloride 100 ml @ 200 mls/hr Q12H IV Last administered on 04/20/17 07:53; Start 04/19/17 at 09:00; Stop 04/20/17 at 13 :58; Status DC Azithromycin 500 mg/Sodium Chloride 250 ml @ 250 mls/hr Q24H IV Last administered on 04/23/17 15:28; Start 04/19/17 at 14:00; Stop 04/23/17 at 16 :47; Status DC Sodium Chloride 1,000 ml @ 999 mls/hr BOLUS ONCE IV Last administered on 11:00; Start 04/19/17 at 13:30; Stop 04/19/17 at 14:30; Status DC Sodium Chloride 1,000 ml @ 999 mls/hr BOLUS ONCE IV ; Start 04/19/17 at 13:30 ; Stop 04/19/17 at 14:30; Status DC Apixaban (Eliquis) 2.5 mg BID PO Last administered on 04/26/17 08:06; Start 04/19/17 at 21:00 Atorvastatin Calcium (Lipitor) 20 mg HS PO Last administered on 04/25/17 21: 20; Start 04/19/17 at 21:00 Calcitriol (Rocaltrol) 0.25 mcg DAILY PO Last administered on 04/26/17 08:05 ; Start 04/20/17 at 09:00 Levothyroxine Sodium (Synthroid) 125 mcg DAILY@0600 PO Last administered on 05:22; Start 04/20/17 at 06:00 Metoprolol Tartrate (Lopressor) 50 mg BID PO Last administered on 04/26/17 08 :06; Start 04/19/17 at 21:00 Cholecalciferol (Vitamin D3) 400 units BID PO Last administered on 04/26/17 08:08; Start 04/19/17 at 21:00 Influenza Virus Vaccine (Flu (Quadrivalent) Vaccine Inj) 0.5 ml ONCE ONCE IM Last administered on 04/20/17 09:56; Start 04/20/17 at 10:00; Stop 04/20/17 at 10:01; Status DC Sodium Chloride 1,000 ml @ 75 mls/hr [id number] IV Last administered on 21:20; Start 04/19/17 at 15:00; Stop 04/22/17 at 11:35; Status DC Insulin Aspart (NovoLOG SUPPLEMENTAL SCALE) 1 Q4H SQ Last administered on 04/26 05:22; Start 04/19/17 at 17:00 Bumetanide (Bumex Inj) 1 mg STK-MED ONCE .ROUTE ; Start 04/20/17 at 11:08; Stop 04/20/17 at 11:09; Status DC Bumetanide (Bumex Inj) 1 mg NOW ONCE IV PUSH Last administered on 04/20/17 15:46; Start 04/20/17 at 13:15; Stop 04/20/17 at 13:16; Status DC Cefepime HCl 2000 mg/Sodium Chloride 100 ml @ 200 mls/hr DAILY IV Last administered on 04/26/17 08:08; Start 04/21/17 at 09:00 Chlorhexidine Gluconate (Peridex 0.12% Liq) 15 ml BID@08,20 MT Last administered on 04/24/17 08:00; Start 04/20/17 at 20:00 Midazolam HCl 100 ml @ 2 mls/hr TITRATE PRN IV SEDATION; Start 04/20/17 at 14: 30; Stop 04/22/17 at 11:35; Status DC Fentanyl Citrate 250 ml @ 5 mls/hr TITRATE PRN IV SEDATION Last administered on 04/20/17 20:36; Start 04/20/17 at 14:30; Stop 04/22/17 at 11:35; Status DC Hydralazine HCl (Apresoline Inj) 20 mg Q4H PRN IV PUSH SYS BP GREATER THAN 170 MMHG Last administered on 04/22/17 18:02; Start 04/21/17 at 11:30 Insulin Detemir (Levemir Inj) 5 units Q12HR SQ Last administered on 04/26/17 08:09; Start 04/21/17 at 11:30 Bumetanide (Bumex Inj) 2 mg STK-MED ONCE .ROUTE ; Start 04/21/17 at 13:31; Stop 04/21/17 at 13:32; Status DC Lorazepam (Ativan Inj) 2 mg STK-MED ONCE .ROUTE ; Start 04/21/17 at 13:51; Stop 04/21/17 at 13:52; Status DC Morphine Sulfate (Morphine Inj) 2 mg ONCE ONCE IV PUSH Last administered on 14:15; Start 04/21/17 at 14:15; Stop 04/21/17 at 14:16; Status DC Lorazepam (Ativan Inj) 1 mg ONCE ONCE IV PUSH Last administered on 04/21/17 14:24; Start 04/21/17 at 14:15; Stop 04/21/17 at 14:16; Status DC Bumetanide (Bumex Inj) 2 mg NOW ONCE IV PUSH Last administered on 04/21/17 14:24; Start 04/21/17 at 14:15; Stop 04/21/17 at 14:16; Status DC Morphine Sulfate (Morphine Inj) 4 mg STK-MED ONCE .ROUTE ; Start 04/21/17 at 14 :08; Stop 04/21/17 at 14:09; Status DC Albuterol/ Ipratropium (Duoneb Neb) 1 ampule Q6HR NEB NEB Last administered on 04/25/17 21:19; Start 04/22/17 at 16:00 Methylprednisolone Sodium Succinate (SoluMEDROL INJ) 40 mg Q8H IV PUSH Last administered on 04/23/17 09:53; Start 04/22/17 at 17:00; Stop 04/23/17 at 16 :47; Status DC Morphine Sulfate (Morphine Inj) 1 mg Q4H PRN IV PAIN SCALE 1 TO 10 Last administered on 04/23/17 23:29; Start 04/22/17 at 18:00 Morphine Sulfate (Morphine Inj) 1 mg Q4H PRN IV PAIN 1-10; Start 04/22/17 at 18:15; Stop 04/22/17 at 18:15; Status DC Diltiazem HCl (Cardizem Inj) 10 mg NOW ONCE IV Last administered on 12:31; Start 04/23/17 at 12:15; Stop 04/23/17 at 12:16; Status DC Diltiazem HCl (Cardizem Cd) 300 mg NOW ONCE PO Last administered on 12:15; Start 04/23/17 at 12:15; Stop 04/23/17 at 12:16; Status DC Diltiazem HCl (Cardizem Cd) 300 mg DAILY PO Last administered on 04/24/17 08: 23; Start 04/24/17 at 09:00; Stop 04/24/17 at 13:07; Status DC Gabapentin (Neurontin) 100 mg BID PO Last administered on 04/24/17 08:29; Start 04/23/17 at 13:00; Stop 04/24/17 at 09:22; Status DC Methylprednisolone Sodium Succinate (SoluMEDROL INJ) 40 mg Q12H IV PUSH Last administered on 04/26/17 08:05; Start 04/23/17 at 21:00 Diltiazem HCl (Cardizem Inj) 10 mg STAT ONCE IV Last administered on 22:14; Start 04/23/17 at 22:15; Stop 04/23/17 at 22:16; Status DC Metoprolol Tartrate (Lopressor Inj) 5 mg Q5M PRN IV PUSH HR>100 Last administered on 04/26/17 08:28; Start 04/24/17 at 02:15 Diltiazem HCl (Cardizem Inj) 15 mg ONCE ONCE IV Last administered on 10:10; Start 04/24/17 at 09:15; Stop 04/24/17 at 09:16; Status DC Gabapentin (Neurontin) 100 mg BID PO Last administered on 04/26/17 08:06; Start 04/24/17 at 21:00 Multivitamins/ Minerals Therapeutic (Theragran M Tab) 1 tab BID PO Last administered on 04/26/17 08:05; Start 04/24/17 at 10:00 Pantoprazole Sodium (Protonix) 20 mg BID PO Last administered on 04/26/17 08: 08; Start 04/24/17 at 09:00 Diltiazem HCl (Cardizem Cd) 360 mg DAILY PO Last administered on 04/26/17 08: 05; Start 04/25/17 at 09:00 Diltiazem HCl (Cardizem) 60 mg ONCE ONCE PO Last administered on 04/24/17t 14 :37; Start 04/24/17 at 13:15; Stop 04/24/17 at 13:35; Status DC Digoxin (Lanoxin) 0.125 mg ONCE ONCE PO ; Start 04/26/17 at 09:00; Stop 04/26 at 09:12; Status DC Digoxin (Lanoxin) 0.125 mg DAILY PO ; Start 04/27/17 at 09:00 A/P Problem List: (1) Acute hypoxemic respiratory failure ICD Code: J96.01 - Acute respiratory failure with hypoxia Status: Acute (2) Acute metabolic encephalopathy ICD Code: G93.41 - Metabolic encephalopathy (3) Pneumonia ICD Code: J18.9 - Pneumonia, unspecified organism Status: Acute (4) COPD with acute exacerbation ICD Code: J44.1 - Chronic obstructive pulmonary disease with (acute) exacerbation (5) Diabetes ICD Code: E11.9 - Type 2 diabetes mellitus without complications Status: Acute (6) Hypertension ICD Code: I10 - Hypertension Status: Acute (7) Acute on chronic kidney failure ICD Code: N17.9 - Acute kidney failure, unspecified; N18.9 - Chronic kidney disease, unspecified Assessment and Plan NEURO: Acute metabolic encephalopathy-resolved - Sedation off. Metabolic encephalopathy resolved - CT of the head negative for acute findings, holding gabapentin RESP: Acute respiratory failure Pneumonia COPD with exacerbation Restrictive lung disease - Extubated 04/21. BiPAP use when necessary - DuoNeb every 4 hours scheduled and when necessary - IV Solu-Medrol 40 every 8-reduce to 40 q12 - Broad-spectrum antibiotics with cefepime and azithromycin CV: Chronic A. fib - All IV fluids DC'd. - Rate controlled with metoprolol home dose, resume Diltiazem - Continue Eliquis MAY NEED ADJUSTMENT OF MEDS FOR METOPROLOL AND DILTIAZEM INCREASE CARDIZEM TO 360 MG DAILY MAY NEED INCREASE TOMORROW IF NOT STABLE Add digoxin 0.125 mg by mouth daily since heart rate is not under 100 yet GI: - ADA renal diet. IV famotidine-DC : Acute on chronic kidney disease - Nephrology -Dr. Grewal chronic renal insufficiency - Monitor renal function closely. Nelson catheter. - Creatinine is improved. NO HD. ID: Severe sepsis Pneumonia - Blood sputum and urine culture, all negative to date - Empiric cefepime and azithromycin for 7-10 days HEME: - Monitor CBC, CMP, INR - Continue Eliquis ENDO: Hypothyroidism Type 2 diabetes - Continue levothyroxine, sliding-scale insulin - SSI. Levemir PROPH: - Bilateral lower extremity SCDs, Eliquis, Protonix LINES: - Utilize peripheral IVs, central line if needed PT AND OT TO EVAL AND TREAT CM CONSULT ROZINA RN AND PT TRANSFER OUT OF ICU Can transfer out of the ICU when bed is available Discharge Planning PT AND OT, MAY NEED PULM CONTINUE TO INCREASE CARDIZEM AND METOPROLOL added digoxin today April 26 Problem Qualifiers (1) Pneumonia: (2) Diabetes: Boubacar Nielsen DO Apr 26, 2017 10:22
--- NOTE | 2017-04-26 13:28 | HHI.NPPN ---
Subjective History of Present Illness Patient is a 82-year-old with sepsis, COPD, intubation, diabetes, acute renal failure and chronic kidney disease. Additional Remarks Patient is alert, and now with nasal cannula, not in distress, clinically same. Objective Data Data Vital Signs Date Time Temp Pulse Resp B/P (MAP) Pulse Ox O2 Delivery O2 Flow Rate FiO2 04/26/17 10:00 124 04/26/17 08:07 99 Nasal Cannula 2.00 04/26/17 08:00 122 04/26/17 07:00 99 Nasal Cannula 4.00 04/26/17 06:00 128 04/26/17 04:00 98.6 113 17 137/86 (103) 99 04/26/17 04:00 113 04/26/17 02:00 127 04/26/17 00:00 98.6 128 15 118/70 (86) 99 04/26/17 00:00 128 04/25/17 22:00 128 04/25/17 21:20 100 Nasal Cannula 2.00 04/25/17 20:00 129 04/25/17 20:00 98.4 129 18 132/79 (96) 100 04/25/17 19:00 99 Nasal Cannula 4.00 04/25/17 18:00 96 Nasal Cannula 4.00 04/25/17 18:00 129 04/25/17 16:00 98.2 128 19 131/81 (98) 100 04/25/17 16:00 128 04/25/17 14:00 120 -: 04/26/17 0618 04/26/17 0618 Physical Exam General Appearance: No Acute Distress, Comfortable, Obese Neck Neck Exam: Neck Supple Pulmonary Resp Exam: Decreased Bases Cardiology CV Exam: Arrhythmia Gastrointestinal/Abdomen GI Exam: Soft, Non-Tender, Bowel Sounds Present Extremeties Extremities Exam: Trace Edema Neurologic Neuro Exam: Alert, Awake Psychiatric Psych Exam: Appropriate Responses Assessment/Plan Problem List: (1) Acute on chronic renal insufficiency ICD Codes: N28.9 - Disorder of kidney and ureter, unspecified; N18.9 - Chronic kidney disease, unspecified Status: Acute Plan: Patient is in acute renal failure and had chronic kidney disease non oliguric , urine out put is adequate. 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
[2017-04-26] MEDS: ATORVASTATIN 20 MG TAB PO SCH (20:31)
[2017-04-27] VITALS (15 sets, daily range): BP systolic 126–151; BP diastolic 44–80; PULSE 81–126; RESP 18–20; TEMP 97.5–98.8; O2SAT 97–100
[2017-04-27] MEDS: INSULIN ASPART SUPPLEMENTAL SCALE SQ SCH ×6 (01:13→22:46)
[2017-04-27] MEDS: CHLORHEXIDINE GLUCONATE 2 % 1 PACK (2 CLOTHS) TOP SCH ×2 (01:14→22:37)
[2017-04-27] MEDS: LEVOTHYROXINE SODIUM 125 MCG TAB PO SCH (05:39)
[2017-04-27 07:11] LABS: AUTOMATED NEUTROPHIL # 17.7 TH/MM3 (1.8-7.7); BASOPHIL % 0.2 % (0.0-2.0); HEMATOCRIT 31.2 % (35.0-46.0); LYMPH % 1.7 % (9.0-44.0); LYMPHOCYTE # 0.3 TH/MM3 (1.0-4.8); MEAN CELL VOLUME 93.2 FL (80.0-100.0); MEAN CORPUSCULAR HEMOGLOBIN 29.5 PG (27.0-34.0); MEAN CORPUSCULAR HGB CONC 31.7 % (32.0-36.0); MONO % 4.4 % (0.0-8.0); NEUT % 93.7 % (16.0-70.0); PLATELET COUNT 231 TH/MM3 (150-450); RED BLOOD COUNT 3.35 MIL/MM3 (4.00-5.30); RED CELL DISTRIBUTION WIDTH 15.2 % (11.6-17.2); WHITE BLOOD COUNT 18.9 TH/MM3 (4.0-11.0)
[2017-04-27 07:19] LABS: HEMO FLAGS AUTO DIFF
[2017-04-27 07:49] LABS: ALT (GPT) 26 U/L (10-53); ANION GAP 10 MEQ/L (5-15); AST (GOT) 12 U/L (15-37); BICARBONATE 22.2 MEQ/L (21.0-32.0); BLOOD UREA NITROGEN 83 MG/DL (7-18); CHLORIDE 101 MEQ/L (98-107); MAGNESIUM 2.6 MG/DL (1.5-2.5); POTASSIUM 4.9 MEQ/L (3.5-5.1); SODIUM (NA) 133 MEQ/L (136-145)
[2017-04-27 07:50] LABS: GLOMERULAR FILTRATION RATE 14 ML/MIN (>89); TOTAL BILIRUBIN ADULT 0.3 MG/DL (0.2-1.0)
[2017-04-27 07:51] LABS: ALKALINE PHOSPHATASE 81 U/L (45-117)
[2017-04-27] MEDS: CHLORHEXIDINE 0.12% (ORAL KIT) 15 ML CUP MT SCH ×2 (08:00→20:00)
[2017-04-27] MEDS: DILTIAZEM-CD 180 MG CAP ER PO SCH (08:29)
[2017-04-27] MEDS: CHOLECALCIFEROL (VIT D3) 400 UNIT TAB PO SCH ×2 (08:30→22:45)
[2017-04-27] MEDS: PANTOPRAZOLE SOD 20 MG DELAYED RELEASE TAB PO SCH ×2 (08:30→22:44)
[2017-04-27] MEDS: DIGOXIN 0.125 MG TAB PO SCH (08:30)
[2017-04-27] MEDS: MULTIVITAMINS/MINERALS THERAPEUTIC TAB PO SCH ×2 (08:30→22:44)
[2017-04-27] MEDS: CALCITRIOL 0.25 MCG CAP PO SCH (08:30)
[2017-04-27] MEDS: METOPROLOL TARTRATE 50 MG TAB PO SCH ×2 (08:30→22:44)
[2017-04-27] MEDS: GABAPENTIN 100 MG CAP PO SCH ×2 (08:30→22:44)
[2017-04-27] MEDS: APIXABAN 2.5 MG TABLET PO SCH ×2 (08:30→22:44)
[2017-04-27] MEDS: methylPREDNISolone SOD SUCC 40 MG/1 ML VIAL IV PUSH SCH (08:31)
[2017-04-27] MEDS: SODIUM CHLORIDE 0.9% FLUSH 10 ML FLUSH IV FLUSH SCH ×2 (08:31→21:00)
[2017-04-27] MEDS: INSULIN DETEMIR 100 UNITS/ML VIAL SQ SCH ×2 (08:32→22:45)
[2017-04-27 09:08] LABS: BANDS 14 % (0-6); MYELOCYTES 2 % (0-0); NEUTROPHIL # MANUAL DIFF 16.8 TH/MM3 (1.8-7.7); OVALOCYTES 1+ (NORMAL); PLATELET ESTIMATE SMEAR NORMAL (NORMAL); PLATELET MORPHOLOGY NORMAL (NORMAL); POLYS (SEG NEUTROPHILS) 73 % (16-70); WBC DIFF SAMPLE 100
[2017-04-27 09:09] LABS: SCAN/DIFF FINAL DIFF MANUAL
[2017-04-27 09:10] LABS: ACANTHOCYTES OCC (NORMAL)
[2017-04-27] MEDS: CEFEPIME INJ 2,000 MG in SODIUM CHLORIDE 0.9% INJ 100 ML IV SCH (10:19)
--- NOTE | 2017-04-27 11:17 | HHI.PR ---
Subjective Remarks Follow-up for atrial fibrillation with RVR, infection, COPD exacerbation, respiratory failure Patient stated breathing has improved. She remains afebrile. She feels like she is doing better. She has no complaints. Deny any chest pain, shortness of breathing, cough, palpitation, lightheadedness or dizziness. She remained afebrile. Her nurse is at the bedside during the interview. Objective Vitals Vital Signs Date Time Temp Pulse Resp B/P (MAP) Pulse Ox O2 Delivery O2 Flow Rate FiO2 04/27/17 10:30 100 Nasal Cannula 2.00 04/27/17 04:00 83 04/27/17 04:00 98.8 83 20 140/80 (100) 100 04/27/17 00:00 102 04/27/17 00:00 20 04/26/17 23:00 98.8 102 20 142/87 (105) 100 04/26/17 22:00 102 17 133/71 (91) 92 04/26/17 20:00 98.8 130 20 137/74 (95) 93 04/26/17 20:00 Room Air 93 04/26/17 20:00 130 04/26/17 17:00 102 27 95 04/26/17 16:00 86 24 135/78 (97) 100 04/26/17 15:00 85 27 92 04/26/17 14:00 87 23 96 04/26/17 13:00 85 15 100 04/26/17 12:00 100 17 133/77 (95) 100 I/O 04/26/17 04/26/17 04/26/17 04/27/17 04/27/17 04/27/17 07:00 15:00 23:00 07:00 15:00 23:00 Intake Total 100 ml 480 ml 360 ml Output Total 900 ml 1100 ml 500 ml Balance -800 ml -620 ml -140 ml Intake Oral 100 ml 480 ml 360 ml Output Urine Total 900 ml 1100 ml 500 ml # Bowel Movements 0 2 0 Result Diagram: 04/27/1760804/27/17 0609 Objective Remarks GENERAL: Morbid obese in no acute distress. CARDIOVASCULAR: Regular rate and rhythm without murmurs, gallops, or rubs. RESPIRATORY: Breath sounds equal bilaterally. No accessory muscle use. GASTROINTESTINAL: Abdomen soft, non-tender, nondistended. Procedures SP VDRF SP INTUBATION AND EXTUBATION Medications and IVs Current Medications Propofol 100 ml @ As Directed STK-MED ONCE .ROUTE ; Start 04/19/17 at 06:24; Stop 04/19/17 at 06:25; Status DC Etomidate (Amidate Inj) 20 mg ONCE ONCE IVP Last administered on 04/19/17 06 :20; Start 04/19/17 at 06:30; Stop 04/19/17 at 06:31; Status DC Succinylcholine Chloride (Quelicin Inj) 100 mg ONCE ONCE IV PUSH Last administered on 04/19/17 06:20; Start 04/19/17 at 06:30; Stop 04/19/17 at 06 :31; Status DC Albuterol/ Ipratropium (Duoneb Neb) 1 ampule Q15M INH Last administered on 07:07; Start 04/19/17 at 06:30; Stop 04/19/17 at 07:01; Status DC Sodium Chloride (NS Flush) 2 ml UNSCH PRN IVF FLUSH AFTER USING IV ACCESS; Start 04/19/17 at 06:30; Stop 04/19/17 at 08:59; Status DC Propofol 100 ml @ 0 mls/hr TITRATE PRN IV Ordered RASS Last administered on 06:30; Start 04/19/17 at 06:30; Stop 04/19/17 at 08:59; Status DC Sodium Chloride 1,000 ml @ 999 mls/hr BOLUS ONCE IV Last administered on 07:15; Start 04/19/17 at 07:15; Stop 04/19/17 at 08:15; Status DC Sodium Chloride 1,000 ml @ 999 mls/hr BOLUS ONCE IV Last administered on 07:30; Start 04/19/17 at 07:30; Stop 04/19/17 at 08:30; Status DC Propofol 100 ml @ 3.6 mls/hr TITRATE PRN IV SEDATION Last administered on 02:09; Start 04/19/17 at 08:30; Stop 04/22/17 at 11:35; Status DC Sodium Chloride (NS Flush) 2 ml UNSCH PRN IV FLUSH FLUSH AFTER USING IV ACCESS Last administered on 04/22/17 18:02; Start 04/19/17 at 08:30 Sodium Chloride (NS Flush) 2 ml BID IV FLUSH Last administered on 04/27/17 08 :31; Start 04/19/17 at 09:00 Albuterol/ Ipratropium (Duoneb Neb) 1 ampule Q6HR NEB NEB Last administered on 04/22/17 08:39; Start 04/19/17 at 10:00; Stop 04/22/17 at 11:34; Status DC Albuterol/ Ipratropium (Duoneb Neb) 1 ampule Q2HR NEB PRN INH SHORTNESS OF BREATH Last administered on 04/20/17 12:34; Start 04/19/17 at 08:30 Chlorhexidine Gluconate (Peridex 0.12% Liq) 15 ml BID@08,20 MT Last administered on 04/22/17 10:04; Start 04/19/17 at 20:00; Stop 04/22/17 at 18 :11; Status DC Pantoprazole Sodium (Protonix Inj) 40 mg DAILY IV PUSH Last administered on 09:53; Start 04/19/17 at 09:00; Stop 04/23/17 at 16:47; Status DC Miscellaneous Information 1 [id number] ; Start 04/19/17 at 08:30 Chlorhexidine Gluconate (Chlorhexidine 2% Cloth) Taper DAILY@04 TOP Last administered on 04/26/17 04:00; Start 04/20/17 at 04:00; Stop 04/16/18 at 03 :59 Chlorhexidine Gluconate (Chlorhexidine 2% Cloth) 3 pack UNSCH PRN TOP HYGIENIC CARE; Start 04/19/17 at 08:30 Methylprednisolone Sodium Succinate (SoluMEDROL INJ) 60 mg Q6H IV PUSH Last administered on 04/22/17 09:58; Start 04/19/17 at 09:00; Stop 04/22/17 at 11 :35; Status DC Cefepime HCl 2000 mg/Sodium Chloride 100 ml @ 200 mls/hr Q12H IV Last administered on 04/20/17 07:53; Start 04/19/17 at 09:00; Stop 04/20/17 at 13 :58; Status DC Azithromycin 500 mg/Sodium Chloride 250 ml @ 250 mls/hr Q24H IV Last administered on 04/23/17 15:28; Start 04/19/17 at 14:00; Stop 04/23/17 at 16 :47; Status DC Sodium Chloride 1,000 ml @ 999 mls/hr BOLUS ONCE IV Last administered on 11:00; Start 04/19/17 at 13:30; Stop 04/19/17 at 14:30; Status DC Sodium Chloride 1,000 ml @ 999 mls/hr BOLUS ONCE IV ; Start 04/19/17 at 13:30 ; Stop 04/19/17 at 14:30; Status DC Apixaban (Eliquis) 2.5 mg BID PO Last administered on 04/27/17 08:30; Start 04/19/17 at 21:00 Atorvastatin Calcium (Lipitor) 20 mg HS PO Last administered on 04/26/17 20: 31; Start 04/19/17 at 21:00 Calcitriol (Rocaltrol) 0.25 mcg DAILY PO Last administered on 04/27/17 08:30 ; Start 04/20/17 at 09:00 Levothyroxine Sodium (Synthroid) 125 mcg DAILY@0600 PO Last administered on 05:39; Start 04/20/17 at 06:00 Metoprolol Tartrate (Lopressor) 50 mg BID PO Last administered on 04/27/17 08 :30; Start 04/19/17 at 21:00 Cholecalciferol (Vitamin D3) 400 units BID PO Last administered on 04/27/17 08:30; Start 04/19/17 at 21:00 Influenza Virus Vaccine (Flu (Quadrivalent) Vaccine Inj) 0.5 ml ONCE ONCE IM Last administered on 04/20/17 09:56; Start 04/20/17 at 10:00; Stop 04/20/17 at 10:01; Status DC Sodium Chloride 1,000 ml @ 75 mls/hr [id number] IV Last administered on 21:20; Start 04/19/17 at 15:00; Stop 04/22/17 at 11:35; Status DC Insulin Aspart (NovoLOG SUPPLEMENTAL SCALE) 1 Q4H SQ Last administered on 04/27 12:41; Start 04/19/17 at 17:00 Bumetanide (Bumex Inj) 1 mg STK-MED ONCE .ROUTE ; Start 04/20/17 at 11:08; Stop 04/20/17 at 11:09; Status DC Bumetanide (Bumex Inj) 1 mg NOW ONCE IV PUSH Last administered on 04/20/17 15:46; Start 04/20/17 at 13:15; Stop 04/20/17 at 13:16; Status DC Cefepime HCl 2000 mg/Sodium Chloride 100 ml @ 200 mls/hr DAILY IV Last administered on 04/27/17 10:19; Start 04/21/17 at 09:00; Stop 04/27/17 at 11 :15; Status DC Chlorhexidine Gluconate (Peridex 0.12% Liq) 15 ml BID@08,20 MT Last administered on 04/24/17 08:00; Start 04/20/17 at 20:00 Midazolam HCl 100 ml @ 2 mls/hr TITRATE PRN IV SEDATION; Start 04/20/17 at 14: 30; Stop 04/22/17 at 11:35; Status DC Fentanyl Citrate 250 ml @ 5 mls/hr TITRATE PRN IV SEDATION Last administered on 04/20/17 20:36; Start 04/20/17 at 14:30; Stop 04/22/17 at 11:35; Status DC Hydralazine HCl (Apresoline Inj) 20 mg Q4H PRN IV PUSH SYS BP GREATER THAN 170 MMHG Last administered on 04/22/17 18:02; Start 04/21/17 at 11:30 Insulin Detemir (Levemir Inj) 5 units Q12HR SQ Last administered on 04/27/17 08:32; Start 04/21/17 at 11:30 Bumetanide (Bumex Inj) 2 mg STK-MED ONCE .ROUTE ; Start 04/21/17 at 13:31; Stop 04/21/17 at 13:32; Status DC Lorazepam (Ativan Inj) 2 mg STK-MED ONCE .ROUTE ; Start 04/21/17 at 13:51; Stop 04/21/17 at 13:52; Status DC Morphine Sulfate (Morphine Inj) 2 mg ONCE ONCE IV PUSH Last administered on 14:15; Start 04/21/17 at 14:15; Stop 04/21/17 at 14:16; Status DC Lorazepam (Ativan Inj) 1 mg ONCE ONCE IV PUSH Last administered on 04/21/17 14:24; Start 04/21/17 at 14:15; Stop 04/21/17 at 14:16; Status DC Bumetanide (Bumex Inj) 2 mg NOW ONCE IV PUSH Last administered on 04/21/17 14:24; Start 04/21/17 at 14:15; Stop 04/21/17 at 14:16; Status DC Morphine Sulfate (Morphine Inj) 4 mg STK-MED ONCE .ROUTE ; Start 04/21/17 at 14 :08; Stop 04/21/17 at 14:09; Status DC Albuterol/ Ipratropium (Duoneb Neb) 1 ampule Q6HR NEB NEB Last administered on 04/26/17 11:48; Start 04/22/17 at 16:00; Stop 04/26/17 at 15:59; Status DC Methylprednisolone Sodium Succinate (SoluMEDROL INJ) 40 mg Q8H IV PUSH Last administered on 04/23/17 09:53; Start 04/22/17 at 17:00; Stop 04/23/17 at 16 :47; Status DC Morphine Sulfate (Morphine Inj) 1 mg Q4H PRN IV PAIN SCALE 1 TO 10 Last administered on 04/23/17 23:29; Start 04/22/17 at 18:00 Morphine Sulfate (Morphine Inj) 1 mg Q4H PRN IV PAIN 1-10; Start 04/22/17 at 18:15; Stop 04/22/17 at 18:15; Status DC Diltiazem HCl (Cardizem Inj) 10 mg NOW ONCE IV Last administered on 12:31; Start 04/23/17 at 12:15; Stop 04/23/17 at 12:16; Status DC Diltiazem HCl (Cardizem Cd) 300 mg NOW ONCE PO Last administered on 12:15; Start 04/23/17 at 12:15; Stop 04/23/17 at 12:16; Status DC Diltiazem HCl (Cardizem Cd) 300 mg DAILY PO Last administered on 04/24/17 08: 23; Start 04/24/17 at 09:00; Stop 04/24/17 at 13:07; Status DC Gabapentin (Neurontin) 100 mg BID PO Last administered on 04/24/17 08:29; Start 04/23/17 at 13:00; Stop 04/24/17 at 09:22; Status DC Methylprednisolone Sodium Succinate (SoluMEDROL INJ) 40 mg Q12H IV PUSH Last administered on 04/27/17 08:31; Start 04/23/17 at 21:00; Stop 04/27/17 at 11 :15; Status DC Diltiazem HCl (Cardizem Inj) 10 mg STAT ONCE IV Last administered on 22:14; Start 04/23/17 at 22:15; Stop 04/23/17 at 22:16; Status DC Metoprolol Tartrate (Lopressor Inj) 5 mg Q5M PRN IV PUSH HR>100 Last administered on 04/26/17 08:28; Start 04/24/17 at 02:15 Diltiazem HCl (Cardizem Inj) 15 mg ONCE ONCE IV Last administered on 10:10; Start 04/24/17 at 09:15; Stop 04/24/17 at 09:16; Status DC Gabapentin (Neurontin) 100 mg BID PO Last administered on 04/27/17 08:30; Start 04/24/17 at 21:00 Multivitamins/ Minerals Therapeutic (Theragran M Tab) 1 tab BID PO Last administered on 04/27/17 08:30; Start 04/24/17 at 10:00 Pantoprazole Sodium (Protonix) 20 mg BID PO Last administered on 04/27/17 08: 30; Start 04/24/17 at 09:00 Diltiazem HCl (Cardizem Cd) 360 mg DAILY PO Last administered on 04/27/17 08: 29; Start 04/25/17 at 09:00 Diltiazem HCl (Cardizem) 60 mg ONCE ONCE PO Last administered on 04/24/17 14 :37; Start 04/24/17 at 13:15; Stop 04/24/17 at 13:35; Status DC Digoxin (Lanoxin) 0.125 mg ONCE ONCE PO Last administered on 04/26/17 09:00 ; Start 04/26/17 at 09:00; Stop 04/26/17 at 09:12; Status DC Digoxin (Lanoxin) 0.125 mg DAILY PO Last administered on 04/27/17 08:30; Start 04/27/17 at 09:00 Amoxicillin/ Clavulanate Potassium (Augmentin) 875 mg Q12HR PO Last administered on 04/27/17 13:53; Start 04/27/17 at 12:00 Metronidazole (Flagyl) 500 mg Q8HR PO Last administered on 04/27/17 13:53; Start 04/27/17 at 14:00 Prednisone (Deltasone) 50 mg DAILY PO ; Start 04/28/17 at 09:00 Sodium Chloride 1,000 ml @ 84 mls/hr [id number] IV ; Start 04/27/17 at 15:00 A/P Problem List: (1) Acute hypoxemic respiratory failure ICD Code: J96.01 - Acute respiratory failure with hypoxia Status: Acute (2) Acute metabolic encephalopathy ICD Code: G93.41 - Metabolic encephalopathy (3) Pneumonia ICD Code: J18.9 - Pneumonia, unspecified organism Status: Acute (4) COPD with acute exacerbation ICD Code: J44.1 - Chronic obstructive pulmonary disease with (acute) exacerbation (5) Diabetes ICD Code: E11.9 - Type 2 diabetes mellitus without complications Status: Acute (6) Hypertension ICD Code: I10 - Hypertension Status: Acute (7) Acute on chronic kidney failure ICD Code: N17.9 - Acute kidney failure, unspecified; N18.9 - Chronic kidney disease, unspecified Assessment and Plan Acute metabolic encephalopathy-resolved - Sedation off. Metabolic encephalopathy resolved - CT of the head negative for acute findings, holding gabapentin Acute respiratory failure Pneumonia COPD with exacerbation Restrictive lung disease - Extubated 04/21. BiPAP use when necessary - DuoNeb every 4 hours scheduled and when necessary - Since lungs are clear to auscultation and clinically patient is doing better will discontinue Solu-Medrol and start prednisone. Will also discontinue cefepime and azithromycin and start Augmentin and Flagyl. Chronic A. fib - All IV fluids DC'd. - Rate controlled with metoprolol home dose, resume Diltiazem - Continue Eliquis -Patient on metoprolol and diltiazem. She was started on digoxin yesterday. Weight has improved drastically. Acute on chronic kidney disease - Nephrology -Dr. Grewal chronic renal insufficiency - Monitor renal function closely. Nelson catheter. - Creatinine is improved. NO HD. Severe sepsis Pneumonia - Blood sputum and urine culture, all negative to date -Patient was treated empirically for questionable aspiration pneumonia where she was put on cefepime. Will discontinue cefepime and azithromycin. Start Augmentin and Flagyl. Will monitor how patient does off of IV antibiotics. Hypothyroidism Type 2 diabetes - Continue levothyroxine, sliding-scale insulin - SSI. Levemir PROPH: - Bilateral lower extremity SCDs, Eliquis, Protonix At the moment I do not see any indication for Nelson to still be placed. Will discontinue Nelson. Discharge Planning If patient continues to do well possibility that patient can be discharged to SNF in 1-2 days. Patient was also be clear by regulatory affairs director. Problem Qualifiers (1) Pneumonia: (2) Diabetes: Sandra Amin MD Apr 27, 2017 11:17
[2017-04-27] MEDS: metroNIDAZOLE 500 MG TAB PO SCH ×2 (13:53→22:47)
[2017-04-27] MEDS: AMOXICILLIN/CLAVULANATE K 875 MG TAB PO SCH ×2 (13:53→22:43)
--- NOTE | 2017-04-27 14:58 | HHI.NPPN ---
Subjective History of Present Illness Patient is a 82-year-old with sepsis, COPD, intubation, diabetes, acute renal failure and chronic kidney disease. Additional Remarks Patient is alert, and now with nasal cannula, not in distress, clinically same. Objective Data Data 04/27/17 04/28/17 19:00 07:00 Intake Total 100 ml Balance 100 ml IV Total 100 ml Vital Signs Date Time Temp Pulse Resp B/P (MAP) Pulse Ox O2 Delivery O2 Flow Rate FiO2 04/27/17 12:10 102 04/27/17 10:30 100 Nasal Cannula 2.00 04/27/17 08:00 83 04/27/17 07:15 97.5 84 18 131/67 (88) 100 04/27/17 04:00 83 04/27/17 04:00 98.8 83 20 140/80 (100) 100 04/27/17 00:00 102 04/27/17 00:00 20 04/26/17 23:00 98.8 102 20 142/87 (105) 100 04/26/17 22:00 102 17 133/71 (91) 92 04/26/17 20:00 98.8 130 20 137/74 (95) 93 04/26/17 20:00 Room Air 93 04/26/17 20:00 130 04/26/17 17:00 102 27 95 04/26/17 16:00 86 24 135/78 (97) 100 04/26/17 15:00 85 27 92 -: 04/27/17 0609 04/27/17 0609 Physical Exam General Appearance: No Acute Distress, Comfortable, Obese Neck Neck Exam: Neck Supple Pulmonary Resp Exam: Decreased Bases Cardiology CV Exam: Arrhythmia Gastrointestinal/Abdomen GI Exam: Soft, Non-Tender, Bowel Sounds Present Extremeties Extremities Exam: Trace Edema Neurologic Neuro Exam: Alert, Awake Psychiatric Psych Exam: Appropriate Responses Assessment/Plan Problem List: (1) Acute on chronic renal insufficiency ICD Codes: N28.9 - Disorder of kidney and ureter, unspecified; N18.9 - Chronic kidney disease, unspecified Status: Acute Plan: Patient is in acute renal failure and had chronic kidney disease non oliguric , urine out put is adequate. 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
[2017-04-27] MEDS: SODIUM CHLOR 0.9% 1000 ML INJ 1,000 ML IV SCH (17:22)
[2017-04-27] MEDS: ATORVASTATIN 20 MG TAB PO SCH (21:00)
[2017-04-28] VITALS (22 sets, daily range): BP systolic 116–153; BP diastolic 66–89; PULSE 82–106; RESP 14–20; TEMP 97.5–98.2; O2SAT 94–100
[2017-04-28] MEDS: INSULIN ASPART SUPPLEMENTAL SCALE SQ SCH ×6 (01:00→20:48)
[2017-04-28] MEDS: SODIUM CHLOR 0.9% 1000 ML INJ 1,000 ML IV SCH ×2 (02:36→14:32)
[2017-04-28] MEDS: LEVOTHYROXINE SODIUM 125 MCG TAB PO SCH (06:15)
[2017-04-28] MEDS: metroNIDAZOLE 500 MG TAB PO SCH ×3 (06:15→20:51)
[2017-04-28] MEDS: CHLORHEXIDINE 0.12% (ORAL KIT) 15 ML CUP MT SCH ×2 (06:31→20:00)
[2017-04-28 06:58] LABS: AUTOMATED NEUTROPHIL # 16.7 TH/MM3 (1.8-7.7); BASOPHIL % 0.1 % (0.0-2.0); EOSINOPHIL % 0.1 % (0.0-4.0); HEMATOCRIT 30.2 % (35.0-46.0); LYMPH % 1.1 % (9.0-44.0); LYMPHOCYTE # 0.2 TH/MM3 (1.0-4.8); MEAN CELL VOLUME 93.7 FL (80.0-100.0); MEAN CORPUSCULAR HEMOGLOBIN 29.6 PG (27.0-34.0); MEAN CORPUSCULAR HGB CONC 31.5 % (32.0-36.0); MONO % 12.9 % (0.0-8.0); NEUT % 85.8 % (16.0-70.0); PLATELET COUNT 242 TH/MM3 (150-450); RED BLOOD COUNT 3.22 MIL/MM3 (4.00-5.30); WHITE BLOOD COUNT 19.4 TH/MM3 (4.0-11.0)
[2017-04-28 07:06] LABS: HEMO FLAGS AUTO DIFF
[2017-04-28 07:16] LABS: BICARBONATE 21.3 MEQ/L (21.0-32.0); MAGNESIUM 2.6 MG/DL (1.5-2.5); POTASSIUM 5.1 MEQ/L (3.5-5.1)
[2017-04-28] MEDS: DIGOXIN 0.125 MG TAB PO SCH (09:20)
[2017-04-28] MEDS: PANTOPRAZOLE SOD 20 MG DELAYED RELEASE TAB PO SCH ×2 (09:20→20:43)
[2017-04-28] MEDS: METOPROLOL TARTRATE 50 MG TAB PO SCH (09:20)
[2017-04-28] MEDS: APIXABAN 2.5 MG TABLET PO SCH ×2 (09:20→20:43)
[2017-04-28] MEDS: MULTIVITAMINS/MINERALS THERAPEUTIC TAB PO SCH ×2 (09:20→20:43)
[2017-04-28] MEDS: CALCITRIOL 0.25 MCG CAP PO SCH (09:20)
[2017-04-28] MEDS: INSULIN DETEMIR 100 UNITS/ML VIAL SQ SCH ×2 (09:20→20:47)
[2017-04-28] MEDS: GABAPENTIN 100 MG CAP PO SCH ×2 (09:20→20:43)
[2017-04-28] MEDS: CHOLECALCIFEROL (VIT D3) 400 UNIT TAB PO SCH ×2 (09:20→20:43)
[2017-04-28] MEDS: AMOXICILLIN/CLAVULANATE K 875 MG TAB PO SCH ×2 (09:20→20:43)
[2017-04-28] MEDS: DILTIAZEM-CD 180 MG CAP ER PO SCH (09:20)
[2017-04-28] MEDS: predniSONE 50 MG TAB PO SCH (09:20)
[2017-04-28] MEDS: SODIUM CHLORIDE 0.9% FLUSH 10 ML FLUSH IV FLUSH SCH ×2 (09:21→20:46)
[2017-04-28 09:24] LABS: BANDS 2 % (0-6); MYELOCYTES 1 % (0-0); NEUTROPHIL # MANUAL DIFF 16.5 TH/MM3 (1.8-7.7); POLYS (SEG NEUTROPHILS) 82 % (16-70); WBC DIFF SAMPLE 100
[2017-04-28 09:25] LABS: PLATELET ESTIMATE SMEAR NORMAL (NORMAL); PLATELET MORPHOLOGY NORMAL (NORMAL); SCAN/DIFF FINAL DIFF MANUAL
[2017-04-28 09:26] LABS: TOXIC VACUOLATION PRESENT (NONE SEEN)
--- NOTE | 2017-04-28 12:38 | HHI.NPPN ---
Subjective History of Present Illness Patient is a 82-year-old with sepsis, COPD, intubation, diabetes, acute renal failure and chronic kidney disease. Additional Remarks Patient is alert, and now with nasal cannula, not in distress, clinically same. Feels like she has to go to the bathroom to urinate Objective Data Data Vital Signs Date Time Temp Pulse Resp B/P (MAP) Pulse Ox O2 Delivery O2 Flow Rate FiO2 04/28/17 10:00 100 04/28/17 09:20 95 Nasal Cannula 2.00 04/28/17 09:00 106 04/28/17 08:02 97.5 103 14 125/81 (96) 95 04/28/17 08:00 106 04/28/17 07:24 99 04/28/17 07:00 100 04/28/17 05:00 101 04/28/17 04:00 16 04/28/17 03:31 98.1 101 16 116/66 (83) 96 04/28/17 00:00 98.1 98 16 129/76 (93) 100 04/28/17 00:00 98 04/27/17 20:00 100 Nasal Cannula 2.00 04/27/17 20:00 100 04/27/17 20:00 98.4 100 20 151/44 (79) 100 04/27/17 16:47 82 04/27/17 16:00 81 04/27/17 15:11 98.1 82 20 126/56 (79) 97 04/27/17 14:00 82 04/27/17 13:00 82 -: 04/28/17 0610 04/28/17 0610 Physical Exam General Appearance: No Acute Distress, Comfortable, Obese Neck Neck Exam: Neck Supple Pulmonary Resp Exam: Decreased Bases Cardiology CV Exam: Arrhythmia Gastrointestinal/Abdomen GI Exam: Soft, Non-Tender, Bowel Sounds Present Extremeties Extremities Exam: Trace Edema Neurologic Neuro Exam: Alert, Awake Psychiatric Psych Exam: Appropriate Responses Assessment/Plan Problem List: (1) Acute on chronic renal insufficiency ICD Codes: N28.9 - Disorder of kidney and ureter, unspecified; N18.9 - Chronic kidney disease, unspecified Status: Acute Plan: Patient is in acute renal failure and had chronic kidney disease non oliguric , urine out put is adequate. Creatinine is higher 4.01 worse given NS at 84 cc/hr I discussed with her urine output is low and she has urinary retention with rising creatinine and I will place back to Nelson catheter and follow BMP (2) Hypertension ICD Codes: I10 - Hypertension Status: Acute Plan: Blood pressure was low requiring fluid bolus (3) Diabetes ICD Codes: E11.9 - Type 2 diabetes mellitus without complications Status: Acute Plan: Continue to monitor (4) COPD with acute exacerbation ICD Codes: J44.1 - Chronic obstructive pulmonary disease with (acute) exacerbation Plan: extubated Problem Qualifiers (1) Diabetes: Tonja Grewal MD Apr 28, 2017 12:38
--- NOTE | 2017-04-28 15:08 | HHI.PR ---
Subjective Remarks Follow-up for COPD exacerbation, infection, acute on chronic renal failure Patient has no complaints. She does have decreased urine output. Nelson was replaced by network strategist due to urinary retention. On the monitor patient had episodes of tachycardia in the 150s at night that was brief episode. She stated she was asymptomatic. Deny any chest pain, shortness of breathing, lightheadedness or dizziness Objective Vitals Vital Signs Date Time Temp Pulse Resp B/P (MAP) Pulse Ox O2 Delivery O2 Flow Rate FiO2 04/28/17 14:00 82 04/28/17 13:00 82 04/28/17 12:00 98.0 87 20 126/89 (101) 100 04/28/17 12:00 100 Nasal Cannula 2.00 04/28/17 12:00 83 04/28/17 11:00 100 04/28/17 10:00 100 04/28/17 09:20 95 Nasal Cannula 2.00 04/28/17 09:00 106 04/28/17 08:02 97.5 103 14 125/81 (96) 95 04/28/17 08:00 106 04/28/17 07:24 99 04/28/17 07:00 100 04/28/17 05:00 101 04/28/17 04:00 16 04/28/17 03:31 98.1 101 16 116/66 (83) 96 04/28/17 00:00 98.1 98 16 129/76 (93) 100 04/28/17 00:00 98 04/27/17 20:00 100 Nasal Cannula 2.00 04/27/17 20:00 100 04/27/17 20:00 98.4 100 20 151/44 (79) 100 04/27/17 16:47 82 04/27/17 16:00 81 04/27/17 15:11 98.1 82 20 126/56 (79) 97 I/O 04/27/17 04/27/17 04/27/17 04/28/17 04/28/17 04/28/17 07:00 15:00 23:00 07:00 15:00 23:00 Intake Total 360 ml 100 ml 120 ml 240 ml Output Total 500 ml Balance -140 ml 100 ml 120 ml 240 ml Intake Oral 360 ml 120 ml 240 ml IV Total 100 ml Output Urine Total 500 ml # Voids 2 2 # Bowel Movements 0 1 0 Result Diagram: 04/28/17 0610 04/28/17 0610 Imaging Last Impressions Chest X-Ray 04/23/17 0600 Signed Impressions: Service Date/Time: Sunday, April 23, 2017 04:17 - CONCLUSION: 1. Suboptimal single view study with mild motion artifact. 2. No significant change in the bibasilar opacities. Guevara Crowell MD Renal Ultrasound 04/20/17 0000 Signed Impressions: Service Date/Time: April 15:07 - CONCLUSION: 1. There is no hydronephrosis. 2. Stable 8mm nonobstructing left renal stone. Duncan Avery MD Head CT 04/19/17 0702 Signed Impressions: Service Date/Time: Wednesday, April 19, 2017 07:29 - CONCLUSION: 1. Cerebral white matter hypodensity characteristic of chronic microvascular ischemic disease. 2. No evidence of acute infarct, hemorrhage, mass or edema. Renato Coughlin MD Objective Remarks GENERAL: Morbid obese in no acute distress. CARDIOVASCULAR: Regular rate and rhythm without murmurs, gallops, or rubs. RESPIRATORY: Breath sounds equal bilaterally. No accessory muscle use. GASTROINTESTINAL: Abdomen soft, non-tender, nondistended. Procedures SP VDRF SP INTUBATION AND EXTUBATION Medications and IVs Current Medications Propofol 100 ml @ As Directed STK-MED ONCE .ROUTE ; Start 04/19/17 at 06:24; Stop 04/19/17 at 06:25; Status DC Etomidate (Amidate Inj) 20 mg ONCE ONCE IVP Last administered on 04/19/17 06 :20; Start 04/19/17 at 06:30; Stop 04/19/17 at 06:31; Status DC Succinylcholine Chloride (Quelicin Inj) 100 mg ONCE ONCE IV PUSH Last administered on 04/19/17 06:20; Start 04/19/17 at 06:30; Stop 04/19/17 at 06 :31; Status DC Albuterol/ Ipratropium (Duoneb Neb) 1 ampule Q15M INH Last administered on 07:07; Start 04/19/17 at 06:30; Stop 04/19/17 at 07:01; Status DC Sodium Chloride (NS Flush) 2 ml UNSCH PRN IVF FLUSH AFTER USING IV ACCESS; Start 04/19/17 at 06:30; Stop 04/19/17 at 08:59; Status DC Propofol 100 ml @ 0 mls/hr TITRATE PRN IV Ordered RASS Last administered on 06:30; Start 04/19/17 at 06:30; Stop 04/19/17 at 08:59; Status DC Sodium Chloride 1,000 ml @ 999 mls/hr BOLUS ONCE IV Last administered on 07:15; Start 04/19/17 at 07:15; Stop 04/19/17 at 08:15; Status DC Sodium Chloride 1,000 ml @ 999 mls/hr BOLUS ONCE IV Last administered on 07:30; Start 04/19/17 at 07:30; Stop 04/19/17 at 08:30; Status DC Propofol 100 ml @ 3.6 mls/hr TITRATE PRN IV SEDATION Last administered on 02:09; Start 04/19/17 at 08:30; Stop 04/22/17 at 11:35; Status DC Sodium Chloride (NS Flush) 2 ml UNSCH PRN IV FLUSH FLUSH AFTER USING IV ACCESS Last administered on 04/22/17 18:02; Start 04/19/17 at 08:30 Sodium Chloride (NS Flush) 2 ml BID IV FLUSH Last administered on 04/28/17 09 :21; Start 04/19/17 at 09:00 Albuterol/ Ipratropium (Duoneb Neb) 1 ampule Q6HR NEB NEB Last administered on 04/22/17 08:39; Start 04/19/17 at 10:00; Stop 04/22/17 at 11:34; Status DC Albuterol/ Ipratropium (Duoneb Neb) 1 ampule Q2HR NEB PRN INH SHORTNESS OF BREATH Last administered on 04/20/17 12:34; Start 04/19/17 at 08:30 Chlorhexidine Gluconate (Peridex 0.12% Liq) 15 ml BID@08,20 MT Last administered on 04/22/17 10:04; Start 04/19/17 at 20:00; Stop 04/22/17 at 18 :11; Status DC Pantoprazole Sodium (Protonix Inj) 40 mg DAILY IV PUSH Last administered on 09:53; Start 04/19/17 at 09:00; Stop 04/23/17 at 16:47; Status DC Miscellaneous Information 1 [id number] ; Start 04/19/17 at 08:30 Chlorhexidine Gluconate (Chlorhexidine 2% Cloth) Taper DAILY@04 TOP Last administered on 04/26/17 04:00; Start 04/20/17 at 04:00; Stop 04/16/18 at 03 :59 Chlorhexidine Gluconate (Chlorhexidine 2% Cloth) 3 pack UNSCH PRN TOP HYGIENIC CARE; Start 04/19/17 at 08:30 Methylprednisolone Sodium Succinate (SoluMEDROL INJ) 60 mg Q6H IV PUSH Last administered on 04/22/17 09:58; Start 04/19/17 at 09:00; Stop 04/22/17 at 11 :35; Status DC Cefepime HCl 2000 mg/Sodium Chloride 100 ml @ 200 mls/hr Q12H IV Last administered on 04/20/17 07:53; Start 04/19/17 at 09:00; Stop 04/20/17 at 13 :58; Status DC Azithromycin 500 mg/Sodium Chloride 250 ml @ 250 mls/hr Q24H IV Last administered on 04/23/17 15:28; Start 04/19/17 at 14:00; Stop 04/23/17 at 16 :47; Status DC Sodium Chloride 1,000 ml @ 999 mls/hr BOLUS ONCE IV Last administered on 11:00; Start 04/19/17 at 13:30; Stop 04/19/17 at 14:30; Status DC Sodium Chloride 1,000 ml @ 999 mls/hr BOLUS ONCE IV ; Start 04/19/17 at 13:30 ; Stop 04/19/17 at 14:30; Status DC Apixaban (Eliquis) 2.5 mg BID PO Last administered on 04/28/17 09:20; Start 04/19/17 at 21:00 Atorvastatin Calcium (Lipitor) 20 mg HS PO Last administered on 04/27/17 21: 00; Start 04/19/17 at 21:00 Calcitriol (Rocaltrol) 0.25 mcg DAILY PO Last administered on 04/28/17 09:20 ; Start 04/20/17 at 09:00 Levothyroxine Sodium (Synthroid) 125 mcg DAILY@0600 PO Last administered on 06:15; Start 04/20/17 at 06:00 Metoprolol Tartrate (Lopressor) 50 mg BID PO Last administered on 04/28/17 09 :20; Start 04/19/17 at 21:00; Stop 04/28/17 at 14:50; Status DC Cholecalciferol (Vitamin D3) 400 units BID PO Last administered on 04/28/17 09:20; Start 04/19/17 at 21:00 Influenza Virus Vaccine (Flu (Quadrivalent) Vaccine Inj) 0.5 ml ONCE ONCE IM Last administered on 04/20/17 09:56; Start 04/20/17 at 10:00; Stop 04/20/17 at 10:01; Status DC Sodium Chloride 1,000 ml @ 75 mls/hr [id number] IV Last administered on 21:20; Start 04/19/17 at 15:00; Stop 04/22/17 at 11:35; Status DC Insulin Aspart (NovoLOG SUPPLEMENTAL SCALE) 1 Q4H SQ Last administered on 04/28 12:21; Start 04/19/17 at 17:00 Bumetanide (Bumex Inj) 1 mg STK-MED ONCE .ROUTE ; Start 04/20/17 at 11:08; Stop 04/20/17 at 11:09; Status DC Bumetanide (Bumex Inj) 1 mg NOW ONCE IV PUSH Last administered on 04/20/17 15:46; Start 04/20/17 at 13:15; Stop 04/20/17 at 13:16; Status DC Cefepime HCl 2000 mg/Sodium Chloride 100 ml @ 200 mls/hr DAILY IV Last administered on 04/27/17 10:19; Start 04/21/17 at 09:00; Stop 04/27/17 at 11 :15; Status DC Chlorhexidine Gluconate (Peridex 0.12% Liq) 15 ml BID@08,20 MT Last administered on 04/24/17 08:00; Start 04/20/17 at 20:00 Midazolam HCl 100 ml @ 2 mls/hr TITRATE PRN IV SEDATION; Start 04/20/17 at 14: 30; Stop 04/22/17 at 11:35; Status DC Fentanyl Citrate 250 ml @ 5 mls/hr TITRATE PRN IV SEDATION Last administered on 04/20/17 20:36; Start 04/20/17 at 14:30; Stop 04/22/17 at 11:35; Status DC Hydralazine HCl (Apresoline Inj) 20 mg Q4H PRN IV PUSH SYS BP GREATER THAN 170 MMHG Last administered on 04/22/17 18:02; Start 04/21/17 at 11:30 Insulin Detemir (Levemir Inj) 5 units Q12HR SQ Last administered on 04/28/17 09:20; Start 04/21/17 at 11:30 Bumetanide (Bumex Inj) 2 mg STK-MED ONCE .ROUTE ; Start 04/21/17 at 13:31; Stop 04/21/17 at 13:32; Status DC Lorazepam (Ativan Inj) 2 mg STK-MED ONCE .ROUTE ; Start 04/21/17 at 13:51; Stop 04/21/17 at 13:52; Status DC Morphine Sulfate (Morphine Inj) 2 mg ONCE ONCE IV PUSH Last administered on 14:15; Start 04/21/17 at 14:15; Stop 04/21/17 at 14:16; Status DC Lorazepam (Ativan Inj) 1 mg ONCE ONCE IV PUSH Last administered on 04/21/17 14:24; Start 04/21/17 at 14:15; Stop 04/21/17 at 14:16; Status DC Bumetanide (Bumex Inj) 2 mg NOW ONCE IV PUSH Last administered on 04/21/17 14:24; Start 04/21/17 at 14:15; Stop 04/21/17 at 14:16; Status DC Morphine Sulfate (Morphine Inj) 4 mg STK-MED ONCE .ROUTE ; Start 04/21/17 at 14 :08; Stop 04/21/17 at 14:09; Status DC Albuterol/ Ipratropium (Duoneb Neb) 1 ampule Q6HR NEB NEB Last administered on 04/26/17 11:48; Start 04/22/17 at 16:00; Stop 04/26/17 at 15:59; Status DC Methylprednisolone Sodium Succinate (SoluMEDROL INJ) 40 mg Q8H IV PUSH Last administered on 04/23/17 09:53; Start 04/22/17 at 17:00; Stop 04/23/17 at 16 :47; Status DC Morphine Sulfate (Morphine Inj) 1 mg Q4H PRN IV PAIN SCALE 1 TO 10 Last administered on 04/23/17 23:29; Start 04/22/17 at 18:00 Morphine Sulfate (Morphine Inj) 1 mg Q4H PRN IV PAIN 1-10; Start 04/22/17 at 18:15; Stop 04/22/17 at 18:15; Status DC Diltiazem HCl (Cardizem Inj) 10 mg NOW ONCE IV Last administered on 12:31; Start 04/23/17 at 12:15; Stop 04/23/17 at 12:16; Status DC Diltiazem HCl (Cardizem Cd) 300 mg NOW ONCE PO Last administered on 12:15; Start 04/23/17 at 12:15; Stop 04/23/17 at 12:16; Status DC Diltiazem HCl (Cardizem Cd) 300 mg DAILY PO Last administered on 04/24/17 08: 23; Start 04/24/17 at 09:00; Stop 04/24/17 at 13:07; Status DC Gabapentin (Neurontin) 100 mg BID PO Last administered on 04/24/17 08:29; Start 04/23/17 at 13:00; Stop 04/24/17 at 09:22; Status DC Methylprednisolone Sodium Succinate (SoluMEDROL INJ) 40 mg Q12H IV PUSH Last administered on 04/27/17 08:31; Start 04/23/17 at 21:00; Stop 04/27/17 at 11 :15; Status DC Diltiazem HCl (Cardizem Inj) 10 mg STAT ONCE IV Last administered on 22:14; Start 04/23/17 at 22:15; Stop 04/23/17 at 22:16; Status DC Metoprolol Tartrate (Lopressor Inj) 5 mg Q5M PRN IV PUSH HR>100 Last administered on 04/26/17 08:28; Start 04/24/17 at 02:15 Diltiazem HCl (Cardizem Inj) 15 mg ONCE ONCE IV Last administered on 10:10; Start 04/24/17 at 09:15; Stop 04/24/17 at 09:16; Status DC Gabapentin (Neurontin) 100 mg BID PO Last administered on 04/28/17 09:20; Start 04/24/17 at 21:00 Multivitamins/ Minerals Therapeutic (Theragran M Tab) 1 tab BID PO Last administered on 04/28/17 09:20; Start 04/24/17 at 10:00 Pantoprazole Sodium (Protonix) 20 mg BID PO Last administered on 04/28/17 09: 20; Start 04/24/17 at 09:00 Diltiazem HCl (Cardizem Cd) 360 mg DAILY PO Last administered on 04/28/17 09: 20; Start 04/25/17 at 09:00 Diltiazem HCl (Cardizem) 60 mg ONCE ONCE PO Last administered on 04/24/17 14 :37; Start 04/24/17 at 13:15; Stop 04/24/17 at 13:35; Status DC Digoxin (Lanoxin) 0.125 mg ONCE ONCE PO Last administered on 04/26/17 09:00 ; Start 04/26/17 at 09:00; Stop 04/26/17 at 09:12; Status DC Digoxin (Lanoxin) 0.125 mg DAILY PO Last administered on 04/28/17 09:20; Start 04/27/17 at 09:00 Amoxicillin/ Clavulanate Potassium (Augmentin) 875 mg Q12HR PO Last administered on 04/28/17 09:20; Start 04/27/17 at 12:00 Metronidazole (Flagyl) 500 mg Q8HR PO Last administered on 04/28/17 14:31; Start 04/27/17 at 14:00 Prednisone (Deltasone) 50 mg DAILY PO Last administered on 04/28/17 09:20; Start 04/28/17 at 09:00 Sodium Chloride 1,000 ml @ 84 mls/hr [id number] IV Last administered on 14:32; Start 04/27/17 at 15:00 Metoprolol Tartrate (Lopressor) 75 mg BID PO ; Start 04/28/17 at 21:00 A/P Problem List: (1) Acute hypoxemic respiratory failure ICD Code: J96.01 - Acute respiratory failure with hypoxia Status: Acute (2) Acute metabolic encephalopathy ICD Code: G93.41 - Metabolic encephalopathy (3) Pneumonia ICD Code: J18.9 - Pneumonia, unspecified organism Status: Acute (4) COPD with acute exacerbation ICD Code: J44.1 - Chronic obstructive pulmonary disease with (acute) exacerbation (5) Diabetes ICD Code: E11.9 - Type 2 diabetes mellitus without complications Status: Acute (6) Hypertension ICD Code: I10 - Hypertension Status: Acute (7) Acute on chronic kidney failure ICD Code: N17.9 - Acute kidney failure, unspecified; N18.9 - Chronic kidney disease, unspecified Assessment and Plan Acute metabolic encephalopathy-resolved - Sedation off. Metabolic encephalopathy resolved - CT of the head negative for acute findings, holding gabapentin Acute respiratory failure Pneumonia COPD with exacerbation Restrictive lung disease - Extubated 04/21. BiPAP use when necessary - DuoNeb every 4 hours scheduled and when necessary - Status post cefepime and azithromycin. Patient currently on Augmentin and Flagyl and is doing well. she is also on prednisone. Chronic A. fib - All IV fluids DC'd. - Rate controlled with metoprolol home dose, resume Diltiazem - Continue Eliquis -Patient on metoprolol and diltiazem. On digoxin. We'll check levels tomorrow. Increase metoprolol to 75 twice a day. Acute on chronic kidney disease - Nephrology -Dr. Grewal chronic renal insufficiency - Monitor renal function closely. Nelson catheter. - Creatinine increased today. Most likely secondary to urinary retention. Nelson was placed back in. Continue to monitor creatinine. Severe sepsis Pneumonia - Blood sputum and urine culture, all negative to date -Patient was treated empirically for questionable aspiration pneumonia where she was put on cefepime. s/p discontinue cefepime and azithromycin. on Augmentin and Flagyl. Continues to do well off of antibiotics Hypothyroidism Type 2 diabetes - Continue levothyroxine, sliding-scale insulin - SSI. Levemir PROPH: - Bilateral lower extremity SCDs, Eliquis, Protonix Discharge Planning If patient continues to do well possibility that patient can be discharged to SNF in 1-2 days. Patient was also be clear by network strategist. Problem Qualifiers (1) Pneumonia: (2) Diabetes: Sandra Amin MD Apr 28, 2017 15:08
[2017-04-28] MEDS: METOPROLOL TARTRATE 25 MG TAB PO SCH (20:44)
[2017-04-28] MEDS: ATORVASTATIN 20 MG TAB PO SCH (20:44)
[2017-04-29] VITALS (30 sets, daily range): BP systolic 117–166; BP diastolic 51–78; PULSE 61–99; RESP 18–20; TEMP 97.1–98.2; O2SAT 95–100
[2017-04-29] MEDS: INSULIN ASPART SUPPLEMENTAL SCALE SQ SCH ×7 (01:00→21:00)
[2017-04-29] MEDS: SODIUM CHLOR 0.9% 1000 ML INJ 1,000 ML IV SCH ×2 (02:45→10:19)
[2017-04-29] MEDS: CHLORHEXIDINE GLUCONATE 2 % 1 PACK (2 CLOTHS) TOP SCH (04:00)
[2017-04-29] MEDS: metroNIDAZOLE 500 MG TAB PO SCH ×3 (05:54→20:12)
[2017-04-29] MEDS: LEVOTHYROXINE SODIUM 125 MCG TAB PO SCH (05:54)
[2017-04-29] MEDS: CHLORHEXIDINE 0.12% (ORAL KIT) 15 ML CUP MT SCH ×2 (08:00→20:00)
[2017-04-29] MEDS: SODIUM CHLORIDE 0.9% FLUSH 10 ML FLUSH IV FLUSH SCH ×2 (09:00→20:03)
[2017-04-29] MEDS: DILTIAZEM-CD 180 MG CAP ER PO SCH (09:25)
[2017-04-29] MEDS: AMOXICILLIN/CLAVULANATE K 875 MG TAB PO SCH ×2 (09:25→20:02)
[2017-04-29] MEDS: DIGOXIN 0.125 MG TAB PO SCH (09:26)
[2017-04-29] MEDS: predniSONE 50 MG TAB PO SCH (09:26)
[2017-04-29] MEDS: APIXABAN 2.5 MG TABLET PO SCH ×2 (09:26→20:02)
[2017-04-29] MEDS: METOPROLOL TARTRATE 25 MG TAB PO SCH ×2 (09:27→20:01)
[2017-04-29] MEDS: MULTIVITAMINS/MINERALS THERAPEUTIC TAB PO SCH ×2 (09:27→20:03)
[2017-04-29] MEDS: CALCITRIOL 0.25 MCG CAP PO SCH (09:27)
[2017-04-29] MEDS: GABAPENTIN 100 MG CAP PO SCH ×2 (09:27→19:59)
[2017-04-29] MEDS: CHOLECALCIFEROL (VIT D3) 400 UNIT TAB PO SCH ×2 (09:27→20:02)
[2017-04-29] MEDS: PANTOPRAZOLE SOD 20 MG DELAYED RELEASE TAB PO SCH ×2 (09:27→20:02)
[2017-04-29] MEDS: INSULIN DETEMIR 100 UNITS/ML VIAL SQ SCH ×2 (09:27→20:04)
--- NOTE | 2017-04-29 13:49 | HHI.NPPN ---
Subjective History of Present Illness Patient is a 82-year-old with sepsis, COPD, intubation, diabetes, acute renal failure and chronic kidney disease. Additional Remarks Patient is alert, and now with nasal cannula, not in distress, clinically same. Feels like she has to go to the bathroom to urinate Objective Data Data Vital Signs Date Time Temp Pulse Resp B/P (MAP) Pulse Ox O2 Delivery O2 Flow Rate FiO2 04/29/17 12:15 97.1 61 18 139/66 (90) 100 04/29/17 11:00 80 04/29/17 10:02 95 Nasal Cannula 2.00 04/29/17 10:00 98 04/29/17 09:03 97.3 99 18 153/78 (103) 98 04/29/17 09:00 98 04/29/17 08:58 Nasal Cannula 2.00 04/29/17 08:00 80 04/29/17 07:00 80 04/29/17 06:00 81 04/29/17 05:00 83 04/29/17 04:00 79 04/29/17 04:00 Nasal Cannula 2.00 04/29/17 04:00 98.1 79 18 117/51 (73) 99 04/29/17 03:00 82 04/29/17 02:00 80 04/29/17 01:00 74 04/29/17 00:00 98.2 79 20 117/62 (80) 99 04/29/17 00:00 Nasal Cannula 2.00 04/29/17 00:00 79 04/28/17 23:00 90 04/28/17 22:00 88 04/28/17 21:00 103 04/28/17 20:00 99 04/28/17 20:00 98.0 99 20 144/76 (98) 95 04/28/17 20:00 Nasal Cannula 2.00 04/28/17 18:00 82 04/28/17 17:00 82 04/28/17 16:00 82 04/28/17 16:00 98.2 82 20 153/71 (98) 94 04/28/17 15:00 82 04/28/17 14:00 82 -: 04/28/17 0610 04/28/17 0610 Physical Exam General Appearance: No Acute Distress, Comfortable, Obese Neck Neck Exam: Neck Supple Pulmonary Resp Exam: Decreased Bases Cardiology CV Exam: Arrhythmia Gastrointestinal/Abdomen GI Exam: Soft, Non-Tender, Bowel Sounds Present Extremeties Extremities Exam: Trace Edema Neurologic Neuro Exam: Alert, Awake Psychiatric Psych Exam: Appropriate Responses Assessment/Plan Problem List: (1) Acute on chronic renal insufficiency ICD Codes: N28.9 - Disorder of kidney and ureter, unspecified; N18.9 - Chronic kidney disease, unspecified Status: Acute Plan: Patient is in acute renal failure and had chronic kidney disease non oliguric , urine out put is adequate. Creatinine was from yesterday given NS at 84 cc/hr UOP 800 cc follow BMP (2) Hypertension ICD Codes: I10 - Hypertension Status: Acute Plan: Blood pressure was low requiring fluid bolus (3) Diabetes ICD Codes: E11.9 - Type 2 diabetes mellitus without complications Status: Acute Plan: Continue to monitor (4) COPD with acute exacerbation ICD Codes: J44.1 - Chronic obstructive pulmonary disease with (acute) exacerbation Plan: extubated Problem Qualifiers (1) Diabetes: Tonja Grewal MD Apr 29, 2017 13:49
--- NOTE | 2017-04-29 15:24 | HHI.PR ---
Subjective Remarks Follow-up for multiple medical conditions assessment and plan Patient's daughter and at bedside. They felt that patient is doing better. The stated that throughout the hospital course patient seems to be hallucinating intermittently. She has no complaints. She is very anxious go to rehabilitation center. Discussed with patient nurse no complaints. Objective Vitals Vital Signs Date Time Temp Pulse Resp B/P (MAP) Pulse Ox O2 Delivery O2 Flow Rate FiO2 04/29/17 14:00 62 04/29/17 13:00 62 04/29/17 12:15 97.1 61 18 139/66 (90) 100 04/29/17 12:00 70 04/29/17 11:00 80 04/29/17 10:02 95 Nasal Cannula 2.00 04/29/17 10:00 98 04/29/17 09:03 97.3 99 18 153/78 (103) 98 04/29/17 09:00 98 04/29/17 08:58 Nasal Cannula 2.00 04/29/17 08:00 80 04/29/17 07:00 80 04/29/17 06:00 81 04/29/17 05:00 83 04/29/17 04:00 79 04/29/17 04:00 Nasal Cannula 2.00 04/29/17 04:00 98.1 79 18 117/51 (73) 99 04/29/17 03:00 82 04/29/17 02:00 80 04/29/17 01:00 74 04/29/17 00:00 98.2 79 20 117/62 (80) 99 04/29/17 00:00 Nasal Cannula 2.00 04/29/17 00:00 79 04/28/17 23:00 90 04/28/17 22:00 88 04/28/17 21:00 103 04/28/17 20:00 99 04/28/17 20:00 98.0 99 20 144/76 (98) 95 04/28/17 20:00 Nasal Cannula 2.00 04/28/17 18:00 82 04/28/17 17:00 82 04/28/17 16:00 82 04/28/17 16:00 98.2 82 20 153/71 (98) 94 I/O 04/28/17 04/28/17 04/28/17 04/29/17 04/29/17 04/29/17 07:00 15:00 23:00 07:00 15:00 23:00 Intake Total 240 ml 1476 ml 1080 ml Output Total 300 ml 500 ml Balance 240 ml -300 ml 1476 ml 580 ml Intake Oral 240 ml 720 ml 240 ml IV Total 756 ml 840 ml Output Urine Total 300 ml 500 ml # Voids 2 1 # Bowel Movements 0 0 Result Diagram: 04/28/17 0610 04/28/17 0610 Imaging Last Impressions Chest X-Ray 04/23/17 0600 Signed Impressions: Service Date/Time: Sunday, April 23, 2017 04:17 - CONCLUSION: 1. Suboptimal single view study with mild motion artifact. 2. No significant change in the bibasilar opacities. Guevara Crowell MD Renal Ultrasound 04/20/17 0000 Signed Impressions: Service Date/Time: April 15:07 - CONCLUSION: 1. There is no hydronephrosis. 2. Stable 8mm nonobstructing left renal stone. Duncan Avery MD Head CT 04/19/17 0702 Signed Impressions: Service Date/Time: Wednesday, April 19, 2017 07:29 - CONCLUSION: 1. Cerebral white matter hypodensity characteristic of chronic microvascular ischemic disease. 2. No evidence of acute infarct, hemorrhage, mass or edema. Renato Coughlin MD Objective Remarks GENERAL: Morbid obese in no acute distress. CARDIOVASCULAR: Regular rate and rhythm without murmurs, gallops, or rubs. RESPIRATORY: Breath sounds equal bilaterally. No accessory muscle use. GASTROINTESTINAL: Abdomen soft, non-tender, nondistended. Procedures SP VDRF SP INTUBATION AND EXTUBATION Medications and IVs Current Medications Propofol 100 ml @ As Directed STK-MED ONCE .ROUTE ; Start 04/19/17 at 06:24; Stop 04/19/17 at 06:25; Status DC Etomidate (Amidate Inj) 20 mg ONCE ONCE IVP Last administered on 04/19/17 06 :20; Start 04/19/17 at 06:30; Stop 04/19/17 at 06:31; Status DC Succinylcholine Chloride (Quelicin Inj) 100 mg ONCE ONCE IV PUSH Last administered on 04/19/17 06:20; Start 04/19/17 at 06:30; Stop 04/19/17 at 06 :31; Status DC Albuterol/ Ipratropium (Duoneb Neb) 1 ampule Q15M INH Last administered on 07:07; Start 04/19/17 at 06:30; Stop 04/19/17 at 07:01; Status DC Sodium Chloride (NS Flush) 2 ml UNSCH PRN IVF FLUSH AFTER USING IV ACCESS; Start 04/19/17 at 06:30; Stop 04/19/17 at 08:59; Status DC Propofol 100 ml @ 0 mls/hr TITRATE PRN IV Ordered RASS Last administered on 06:30; Start 04/19/17 at 06:30; Stop 04/19/17 at 08:59; Status DC Sodium Chloride 1,000 ml @ 999 mls/hr BOLUS ONCE IV Last administered on 07:15; Start 04/19/17 at 07:15; Stop 04/19/17 at 08:15; Status DC Sodium Chloride 1,000 ml @ 999 mls/hr BOLUS ONCE IV Last administered on 07:30; Start 04/19/17 at 07:30; Stop 04/19/17 at 08:30; Status DC Propofol 100 ml @ 3.6 mls/hr TITRATE PRN IV SEDATION Last administered on 02:09; Start 04/19/17 at 08:30; Stop 04/22/17 at 11:35; Status DC Sodium Chloride (NS Flush) 2 ml UNSCH PRN IV FLUSH FLUSH AFTER USING IV ACCESS Last administered on 04/22/17 18:02; Start 04/19/17 at 08:30 Sodium Chloride (NS Flush) 2 ml BID IV FLUSH Last administered on 04/28/17 20 :46; Start 04/19/17 at 09:00 Albuterol/ Ipratropium (Duoneb Neb) 1 ampule Q6HR NEB NEB Last administered on 04/22/17 08:39; Start 04/19/17 at 10:00; Stop 04/22/17 at 11:34; Status DC Albuterol/ Ipratropium (Duoneb Neb) 1 ampule Q2HR NEB PRN INH SHORTNESS OF BREATH Last administered on 04/20/17 12:34; Start 04/19/17 at 08:30 Chlorhexidine Gluconate (Peridex 0.12% Liq) 15 ml BID@08,20 MT Last administered on 04/22/17 10:04; Start 04/19/17 at 20:00; Stop 04/22/17 at 18 :11; Status DC Pantoprazole Sodium (Protonix Inj) 40 mg DAILY IV PUSH Last administered on 09:53; Start 04/19/17 at 09:00; Stop 04/23/17 at 16:47; Status DC Miscellaneous Information 1 [id number] ; Start 04/19/17 at 08:30 Chlorhexidine Gluconate (Chlorhexidine 2% Cloth) Taper DAILY@04 TOP Last administered on 04/26/17 04:00; Start 04/20/17 at 04:00; Stop 04/16/18 at 03 :59 Chlorhexidine Gluconate (Chlorhexidine 2% Cloth) 3 pack UNSCH PRN TOP HYGIENIC CARE; Start 04/19/17 at 08:30 Methylprednisolone Sodium Succinate (SoluMEDROL INJ) 60 mg Q6H IV PUSH Last administered on 04/22/17 09:58; Start 04/19/17 at 09:00; Stop 04/22/17 at 11 :35; Status DC Cefepime HCl 2000 mg/Sodium Chloride 100 ml @ 200 mls/hr Q12H IV Last administered on 04/20/17 07:53; Start 04/19/17 at 09:00; Stop 04/20/17 at 13 :58; Status DC Azithromycin 500 mg/Sodium Chloride 250 ml @ 250 mls/hr Q24H IV Last administered on 04/23/17 15:28; Start 04/19/17 at 14:00; Stop 04/23/17 at 16 :47; Status DC Sodium Chloride 1,000 ml @ 999 mls/hr BOLUS ONCE IV Last administered on 11:00; Start 04/19/17 at 13:30; Stop 04/19/17 at 14:30; Status DC Sodium Chloride 1,000 ml @ 999 mls/hr BOLUS ONCE IV ; Start 04/19/17 at 13:30 ; Stop 04/19/17 at 14:30; Status DC Apixaban (Eliquis) 2.5 mg BID PO Last administered on 04/29/17 09:26; Start 04/19/17 at 21:00 Atorvastatin Calcium (Lipitor) 20 mg HS PO Last administered on 04/28/17 20: 44; Start 04/19/17 at 21:00 Calcitriol (Rocaltrol) 0.25 mcg DAILY PO Last administered on 04/29/17 09:27 ; Start 04/20/17 at 09:00 Levothyroxine Sodium (Synthroid) 125 mcg DAILY@0600 PO Last administered on 05:54; Start 04/20/17 at 06:00 Metoprolol Tartrate (Lopressor) 50 mg BID PO Last administered on 04/28/17 09 :20; Start 04/19/17 at 21:00; Stop 04/28/17 at 14:50; Status DC Cholecalciferol (Vitamin D3) 400 units BID PO Last administered on 04/29/17 09:27; Start 04/19/17 at 21:00 Influenza Virus Vaccine (Flu (Quadrivalent) Vaccine Inj) 0.5 ml ONCE ONCE IM Last administered on 04/20/17 09:56; Start 04/20/17 at 10:00; Stop 04/20/17 at 10:01; Status DC Sodium Chloride 1,000 ml @ 75 mls/hr [id number] IV Last administered on 21:20; Start 04/19/17 at 15:00; Stop 04/22/17 at 11:35; Status DC Insulin Aspart (NovoLOG SUPPLEMENTAL SCALE) 1 Q4H SQ Last administered on 04/29 14:09; Start 04/19/17 at 17:00 Bumetanide (Bumex Inj) 1 mg STK-MED ONCE .ROUTE ; Start 04/20/17 at 11:08; Stop 04/20/17 at 11:09; Status DC Bumetanide (Bumex Inj) 1 mg NOW ONCE IV PUSH Last administered on 04/20/17 15:46; Start 04/20/17 at 13:15; Stop 04/20/17 at 13:16; Status DC Cefepime HCl 2000 mg/Sodium Chloride 100 ml @ 200 mls/hr DAILY IV Last administered on 04/27/17 10:19; Start 04/21/17 at 09:00; Stop 04/27/17 at 11 :15; Status DC Chlorhexidine Gluconate (Peridex 0.12% Liq) 15 ml BID@08,20 MT Last administered on 04/24/17 08:00; Start 04/20/17 at 20:00 Midazolam HCl 100 ml @ 2 mls/hr TITRATE PRN IV SEDATION; Start 04/20/17 at 14: 30; Stop 04/22/17 at 11:35; Status DC Fentanyl Citrate 250 ml @ 5 mls/hr TITRATE PRN IV SEDATION Last administered on 04/20/17 20:36; Start 04/20/17 at 14:30; Stop 04/22/17 at 11:35; Status DC Hydralazine HCl (Apresoline Inj) 20 mg Q4H PRN IV PUSH SYS BP GREATER THAN 170 MMHG Last administered on 04/22/17 18:02; Start 04/21/17 at 11:30 Insulin Detemir (Levemir Inj) 5 units Q12HR SQ Last administered on 04/29/17 09:27; Start 04/21/17 at 11:30 Bumetanide (Bumex Inj) 2 mg STK-MED ONCE .ROUTE ; Start 04/21/17 at 13:31; Stop 04/21/17 at 13:32; Status DC Lorazepam (Ativan Inj) 2 mg STK-MED ONCE .ROUTE ; Start 04/21/17 at 13:51; Stop 04/21/17 at 13:52; Status DC Morphine Sulfate (Morphine Inj) 2 mg ONCE ONCE IV PUSH Last administered on 14:15; Start 04/21/17 at 14:15; Stop 04/21/17 at 14:16; Status DC Lorazepam (Ativan Inj) 1 mg ONCE ONCE IV PUSH Last administered on 04/21/17 14:24; Start 04/21/17 at 14:15; Stop 04/21/17 at 14:16; Status DC Bumetanide (Bumex Inj) 2 mg NOW ONCE IV PUSH Last administered on 04/21/17 14:24; Start 04/21/17 at 14:15; Stop 04/21/17 at 14:16; Status DC Morphine Sulfate (Morphine Inj) 4 mg STK-MED ONCE .ROUTE ; Start 04/21/17 at 14 :08; Stop 04/21/17 at 14:09; Status DC Albuterol/ Ipratropium (Duoneb Neb) 1 ampule Q6HR NEB NEB Last administered on 04/26/17 11:48; Start 04/22/17 at 16:00; Stop 04/26/17 at 15:59; Status DC Methylprednisolone Sodium Succinate (SoluMEDROL INJ) 40 mg Q8H IV PUSH Last administered on 04/23/17 09:53; Start 04/22/17 at 17:00; Stop 04/23/17 at 16 :47; Status DC Morphine Sulfate (Morphine Inj) 1 mg Q4H PRN IV PAIN SCALE 1 TO 10 Last administered on 04/23/17 23:29; Start 04/22/17 at 18:00 Morphine Sulfate (Morphine Inj) 1 mg Q4H PRN IV PAIN 1-10; Start 04/22/17 at 18:15; Stop 04/22/17 at 18:15; Status DC Diltiazem HCl (Cardizem Inj) 10 mg NOW ONCE IV Last administered on 12:31; Start 04/23/17 at 12:15; Stop 04/23/17 at 12:16; Status DC Diltiazem HCl (Cardizem Cd) 300 mg NOW ONCE PO Last administered on 12:15; Start 04/23/17 at 12:15; Stop 04/23/17 at 12:16; Status DC Diltiazem HCl (Cardizem Cd) 300 mg DAILY PO Last administered on 04/24/17 08: 23; Start 04/24/17 at 09:00; Stop 04/24/17 at 13:07; Status DC Gabapentin (Neurontin) 100 mg BID PO Last administered on 04/24/17 08:29; Start 04/23/17 at 13:00; Stop 04/24/17 at 09:22; Status DC Methylprednisolone Sodium Succinate (SoluMEDROL INJ) 40 mg Q12H IV PUSH Last administered on 04/27/17 08:31; Start 04/23/17 at 21:00; Stop 04/27/17 at 11 :15; Status DC Diltiazem HCl (Cardizem Inj) 10 mg STAT ONCE IV Last administered on 22:14; Start 04/23/17 at 22:15; Stop 04/23/17 at 22:16; Status DC Metoprolol Tartrate (Lopressor Inj) 5 mg Q5M PRN IV PUSH HR>100 Last administered on 04/26/17 08:28; Start 04/24/17 at 02:15 Diltiazem HCl (Cardizem Inj) 15 mg ONCE ONCE IV Last administered on 10:10; Start 04/24/17 at 09:15; Stop 04/24/17 at 09:16; Status DC Gabapentin (Neurontin) 100 mg BID PO Last administered on 04/29/17 09:27; Start 04/24/17 at 21:00 Multivitamins/ Minerals Therapeutic (Theragran M Tab) 1 tab BID PO Last administered on 04/29/17 09:27; Start 04/24/17 at 10:00 Pantoprazole Sodium (Protonix) 20 mg BID PO Last administered on 04/29/17 09: 27; Start 04/24/17 at 09:00 Diltiazem HCl (Cardizem Cd) 360 mg DAILY PO Last administered on 04/29/17 09: 25; Start 04/25/17 at 09:00 Diltiazem HCl (Cardizem) 60 mg ONCE ONCE PO Last administered on 04/24/17 14 :37; Start 04/24/17 at 13:15; Stop 04/24/17 at 13:35; Status DC Digoxin (Lanoxin) 0.125 mg ONCE ONCE PO Last administered on 04/26/17 09:00 ; Start 04/26/17 at 09:00; Stop 04/26/17 at 09:12; Status DC Digoxin (Lanoxin) 0.125 mg DAILY PO Last administered on 04/29/17 09:26; Start 04/27/17 at 09:00 Amoxicillin/ Clavulanate Potassium (Augmentin) 875 mg Q12HR PO Last administered on 04/29/17 09:25; Start 04/27/17 at 12:00 Metronidazole (Flagyl) 500 mg Q8HR PO Last administered on 04/29/17 14:10; Start 04/27/17 at 14:00 Prednisone (Deltasone) 50 mg DAILY PO Last administered on 04/29/17 09:26; Start 04/28/17 at 09:00 Sodium Chloride 1,000 ml @ 84 mls/hr [id number] IV Last administered on 10:19; Start 04/27/17 at 15:00 Metoprolol Tartrate (Lopressor) 75 mg BID PO Last administered on 04/29/17 09 :27; Start 04/28/17 at 21:00 A/P Problem List: (1) Acute hypoxemic respiratory failure ICD Code: J96.01 - Acute respiratory failure with hypoxia Status: Acute (2) Acute metabolic encephalopathy ICD Code: G93.41 - Metabolic encephalopathy (3) Pneumonia ICD Code: J18.9 - Pneumonia, unspecified organism Status: Acute (4) COPD with acute exacerbation ICD Code: J44.1 - Chronic obstructive pulmonary disease with (acute) exacerbation (5) Diabetes ICD Code: E11.9 - Type 2 diabetes mellitus without complications Status: Acute (6) Hypertension ICD Code: I10 - Hypertension Status: Acute (7) Acute on chronic kidney failure ICD Code: N17.9 - Acute kidney failure, unspecified; N18.9 - Chronic kidney disease, unspecified Assessment and Plan Acute metabolic encephalopathy-resolved - Sedation off. Metabolic encephalopathy resolved - CT of the head negative for acute findings, holding gabapentin -It is intermittent and she may have a underlying to dementia. She has been stable. Acute respiratory failure Pneumonia COPD with exacerbation Restrictive lung disease - Extubated 04/21. BiPAP use when necessary - DuoNeb every 4 hours scheduled and when necessary - Status post cefepime and azithromycin. Patient currently on Augmentin and Flagyl and is doing well. she is also on prednisone. Chronic A. fib - All IV fluids DC'd. - Rate controlled with metoprolol home dose, resume Diltiazem - Continue Eliquis -Patient on metoprolol and diltiazem. On digoxin. We'll check levels tomorrow. Increase metoprolol to 75 twice a day. Acute on chronic kidney disease - Nephrology -Dr. Grewal chronic renal insufficiency - Monitor renal function closely. Nelson catheter. - Creatinine increased yesterday most likely secondary to urinary retention. Still pending labs from this morning. Has not been drawn yet. Discussed with nurse in regards to this. Severe sepsis Pneumonia - Blood sputum and urine culture, all negative to date -Patient was treated empirically for questionable aspiration pneumonia where she was put on cefepime. s/p discontinue cefepime and azithromycin. on Augmentin and Flagyl. Continues to do well off of antibiotics Hypothyroidism Type 2 diabetes - Continue levothyroxine, sliding-scale insulin - SSI. Levemir PROPH: - Bilateral lower extremity SCDs, Eliquis, Protonix Discharge Planning Still pending lab that was ordered for this morning. Discussed with patient's nurse. Patient has a bed available at [facility] tomorrow. Problem Qualifiers (1) Pneumonia: (2) Diabetes: Sandra Amin MD Apr 29, 2017 15:24
[2017-04-29 18:22] LABS: HEMATOCRIT 27.8 % (35.0-46.0); MEAN CELL VOLUME 94.9 FL (80.0-100.0); MEAN CORPUSCULAR HGB CONC 31.7 % (32.0-36.0); PLATELET COUNT 230 TH/MM3 (150-450); RED BLOOD COUNT 2.93 MIL/MM3 (4.00-5.30); REVIEW FLAG FINAL; WHITE BLOOD COUNT 18.9 TH/MM3 (4.0-11.0)
[2017-04-29 19:23] LABS: BICARBONATE 21.1 MEQ/L (21.0-32.0); DIGOXIN 1.5 NG/ML (0.8-2.0); POTASSIUM 5.1 MEQ/L (3.5-5.1)
[2017-04-29] MEDS: ATORVASTATIN 20 MG TAB PO SCH (20:03)
[2017-04-30] VITALS (25 sets, daily range): BP systolic 134–150; BP diastolic 49–81; PULSE 58–100; RESP 18; TEMP 97.3–98.4; O2SAT 97–100
[2017-04-30] MEDS: SODIUM CHLOR 0.9% 1000 ML INJ 1,000 ML IV SCH ×2 (02:35→09:04)
[2017-04-30] MEDS: CHLORHEXIDINE GLUCONATE 2 % 1 PACK (2 CLOTHS) TOP SCH (04:00)
[2017-04-30] MEDS: metroNIDAZOLE 500 MG TAB PO SCH ×3 (05:03→21:06)
[2017-04-30] MEDS: LEVOTHYROXINE SODIUM 125 MCG TAB PO SCH (05:03)
[2017-04-30 07:15] LABS: BICARBONATE 22.1 MEQ/L (21.0-32.0)
[2017-04-30] MEDS: CHLORHEXIDINE 0.12% (ORAL KIT) 15 ML CUP MT SCH ×2 (07:17→20:00)
[2017-04-30] MEDS: DILTIAZEM-CD 180 MG CAP ER PO SCH (09:02)
[2017-04-30] MEDS: AMOXICILLIN/CLAVULANATE K 875 MG TAB PO SCH ×2 (09:02→20:58)
[2017-04-30] MEDS: INSULIN ASPART SUPPLEMENTAL SCALE SQ SCH ×4 (09:02→21:05)
[2017-04-30] MEDS: SODIUM CHLORIDE 0.9% FLUSH 10 ML FLUSH IV FLUSH SCH ×2 (09:02→20:57)
[2017-04-30] MEDS: predniSONE 50 MG TAB PO SCH (09:03)
[2017-04-30] MEDS: METOPROLOL TARTRATE 25 MG TAB PO SCH ×2 (09:03→20:58)
[2017-04-30] MEDS: GABAPENTIN 100 MG CAP PO SCH ×2 (09:03→20:58)
[2017-04-30] MEDS: APIXABAN 2.5 MG TABLET PO SCH ×2 (09:03→20:58)
[2017-04-30] MEDS: DIGOXIN 0.125 MG TAB PO SCH (09:03)
[2017-04-30] MEDS: CALCITRIOL 0.25 MCG CAP PO SCH (09:04)
[2017-04-30] MEDS: CHOLECALCIFEROL (VIT D3) 400 UNIT TAB PO SCH ×2 (09:04→20:58)
[2017-04-30] MEDS: INSULIN DETEMIR 100 UNITS/ML VIAL SQ SCH ×2 (09:04→21:05)
[2017-04-30] MEDS: MULTIVITAMINS/MINERALS THERAPEUTIC TAB PO SCH ×2 (09:04→20:58)
[2017-04-30] MEDS: PANTOPRAZOLE SOD 20 MG DELAYED RELEASE TAB PO SCH ×2 (09:04→20:58)
[2017-04-30] MEDS ORDERED: PILL SPLITTER OTHER PRN (11:00)
--- NOTE | 2017-04-30 11:07 | HHI.PR ---
Subjective Remarks Follow-up for acute on chronic renal failure Patient is very talkative today. She is AAO 3 and she is able to tell me what SNF she wants to go to. Patient complaining of back pain. Denied any lower extremity weakness. She also complains of right-sided abdominal pain that's very minimal. Denies any nausea vomiting or constipation. Her daughter stated that she is complaining of this pain on the day of admission. She is asking why she is she not able to have decaf coffee. Her and daughter at the bedside during the interview. Objective Vitals Vital Signs Date Time Temp Pulse Resp B/P (MAP) Pulse Ox O2 Delivery O2 Flow Rate FiO2 04/30/17 10:00 92 04/30/17 09:00 100 04/30/17 08:00 90 04/30/17 07:26 97.4 83 18 142/70 (94) 99 04/30/17 07:26 Nasal Cannula 2.00 04/30/17 07:00 79 04/30/17 05:46 81 04/30/17 05:00 78 04/30/17 04:00 Nasal Cannula 2.00 04/30/17 04:00 98.4 79 18 150/74 (99) 97 04/30/17 04:00 79 04/30/17 03:00 78 04/30/17 02:00 81 04/30/17 01:00 78 04/30/17 00:00 Nasal Cannula 2.00 04/30/17 00:00 79 04/30/17 00:00 98.2 79 18 144/70 (94) 98 04/29/17 23:00 78 04/29/17 22:00 81 04/29/17 21:00 78 04/29/17 20:00 79 04/29/17 20:00 98.0 79 18 154/71 (98) 99 04/29/17 20:00 Nasal Cannula 2.00 04/29/17 18:00 80 04/29/17 17:17 99 Nasal Cannula 2.00 04/29/17 17:00 78 04/29/17 16:47 154/70 (98) 04/29/17 16:17 78 04/29/17 16:16 79 04/29/17 15:28 97.7 74 18 166/74 (104) 99 04/29/17 14:00 62 04/29/17 13:00 62 04/29/17 12:15 97.1 61 18 139/66 (90) 100 04/29/17 12:00 70 I/O 04/29/17 04/29/17 04/29/17 04/30/17 04/30/17 04/30/17 07:00 15:00 23:00 07:00 15:00 23:00 Intake Total 1080 ml 2784 ml Output Total 500 ml 625 ml 550 ml Balance 580 ml 2159 ml -550 ml Intake Oral 240 ml 600 ml IV Total 840 ml 2184 ml Output Urine Total 500 ml 625 ml 550 ml # Bowel Movements 0 2 0 Result Diagram: 04/29/17 1730 04/30/17 0550 Objective Remarks GENERAL: Morbid obese in no acute distress. CARDIOVASCULAR: Regular rate and rhythm without murmurs, gallops, or rubs. RESPIRATORY: Breath sounds equal bilaterally. No accessory muscle use. GASTROINTESTINAL: Abdomen soft,, nondistended. Very minimal right-sided abdominal pain with very deep pressure/palpation. Negative for any peritoneal signs. BACK: Paraspinal muscle spasm located in the mid to lower back. MSK: 5 out of 5 upper extremity and lower she may strength. Patient also had more strength in which she was able to move her upper extremity better. NEURO: AAO X3. Procedures SP VDRF SP INTUBATION AND EXTUBATION Medications and IVs Current Medications Propofol 100 ml @ As Directed STK-MED ONCE .ROUTE ; Start 04/19/17 at 06:24; Stop 04/19/17 at 06:25; Status DC Etomidate (Amidate Inj) 20 mg ONCE ONCE IVP Last administered on 04/19/17 06 :20; Start 04/19/17 at 06:30; Stop 04/19/17 at 06:31; Status DC Succinylcholine Chloride (Quelicin Inj) 100 mg ONCE ONCE IV PUSH Last administered on 04/19/17 06:20; Start 04/19/17 at 06:30; Stop 04/19/17 at 06 :31; Status DC Albuterol/ Ipratropium (Duoneb Neb) 1 ampule Q15M INH Last administered on 07:07; Start 04/19/17 at 06:30; Stop 04/19/17 at 07:01; Status DC Sodium Chloride (NS Flush) 2 ml UNSCH PRN IVF FLUSH AFTER USING IV ACCESS; Start 04/19/17 at 06:30; Stop 04/19/17 at 08:59; Status DC Propofol 100 ml @ 0 mls/hr TITRATE PRN IV Ordered RASS Last administered on 06:30; Start 04/19/17 at 06:30; Stop 04/19/17 at 08:59; Status DC Sodium Chloride 1,000 ml @ 999 mls/hr BOLUS ONCE IV Last administered on 07:15; Start 04/19/17 at 07:15; Stop 04/19/17 at 08:15; Status DC Sodium Chloride 1,000 ml @ 999 mls/hr BOLUS ONCE IV Last administered on 07:30; Start 04/19/17 at 07:30; Stop 04/19/17 at 08:30; Status DC Propofol 100 ml @ 3.6 mls/hr TITRATE PRN IV SEDATION Last administered on 02:09; Start 04/19/17 at 08:30; Stop 04/22/17 at 11:35; Status DC Sodium Chloride (NS Flush) 2 ml UNSCH PRN IV FLUSH FLUSH AFTER USING IV ACCESS Last administered on 04/22/17 18:02; Start 04/19/17 at 08:30 Sodium Chloride (NS Flush) 2 ml BID IV FLUSH Last administered on 04/29/17 20 :03; Start 04/19/17 at 09:00 Albuterol/ Ipratropium (Duoneb Neb) 1 ampule Q6HR NEB NEB Last administered on 04/22/17 08:39; Start 04/19/17 at 10:00; Stop 04/22/17 at 11:34; Status DC Albuterol/ Ipratropium (Duoneb Neb) 1 ampule Q2HR NEB PRN INH SHORTNESS OF BREATH Last administered on 04/20/17 12:34; Start 04/19/17 at 08:30 Chlorhexidine Gluconate (Peridex 0.12% Liq) 15 ml BID@08,20 MT Last administered on 04/22/17 10:04; Start 04/19/17 at 20:00; Stop 04/22/17 at 18 :11; Status DC Pantoprazole Sodium (Protonix Inj) 40 mg DAILY IV PUSH Last administered on 09:53; Start 04/19/17 at 09:00; Stop 04/23/17 at 16:47; Status DC Miscellaneous Information 1 [id number] ; Start 04/19/17 at 08:30 Chlorhexidine Gluconate (Chlorhexidine 2% Cloth) Taper DAILY@04 TOP Last administered on 04/26/17 04:00; Start 04/20/17 at 04:00; Stop 04/16/18 at 03 :59 Chlorhexidine Gluconate (Chlorhexidine 2% Cloth) 3 pack UNSCH PRN TOP HYGIENIC CARE; Start 04/19/17 at 08:30 Methylprednisolone Sodium Succinate (SoluMEDROL INJ) 60 mg Q6H IV PUSH Last administered on 04/22/17 09:58; Start 04/19/17 at 09:00; Stop 04/22/17 at 11 :35; Status DC Cefepime HCl 2000 mg/Sodium Chloride 100 ml @ 200 mls/hr Q12H IV Last administered on 04/20/17 07:53; Start 04/19/17 at 09:00; Stop 04/20/17 at 13 :58; Status DC Azithromycin 500 mg/Sodium Chloride 250 ml @ 250 mls/hr Q24H IV Last administered on 04/23/17 15:28; Start 04/19/17 at 14:00; Stop 04/23/17 at 16 :47; Status DC Sodium Chloride 1,000 ml @ 999 mls/hr BOLUS ONCE IV Last administered on 11:00; Start 04/19/17 at 13:30; Stop 04/19/17 at 14:30; Status DC Sodium Chloride 1,000 ml @ 999 mls/hr BOLUS ONCE IV ; Start 04/19/17 at 13:30 ; Stop 04/19/17 at 14:30; Status DC Apixaban (Eliquis) 2.5 mg BID PO Last administered on 04/30/17 09:03; Start 04/19/17 at 21:00 Atorvastatin Calcium (Lipitor) 20 mg HS PO Last administered on 04/29/17 20: 03; Start 04/19/17 at 21:00 Calcitriol (Rocaltrol) 0.25 mcg DAILY PO Last administered on 04/30/17 09:04 ; Start 04/20/17 at 09:00 Levothyroxine Sodium (Synthroid) 125 mcg DAILY@0600 PO Last administered on 05:03; Start 04/20/17 at 06:00 Metoprolol Tartrate (Lopressor) 50 mg BID PO Last administered on 04/28/17 09 :20; Start 04/19/17 at 21:00; Stop 04/28/17 at 14:50; Status DC Cholecalciferol (Vitamin D3) 400 units BID PO Last administered on 04/30/17 09:04; Start 04/19/17 at 21:00 Influenza Virus Vaccine (Flu (Quadrivalent) Vaccine Inj) 0.5 ml ONCE ONCE IM Last administered on 04/20/17 09:56; Start 04/20/17 at 10:00; Stop 04/20/17 at 10:01; Status DC Sodium Chloride 1,000 ml @ 75 mls/hr [id number] IV Last administered on 21:20; Start 04/19/17 at 15:00; Stop 04/22/17 at 11:35; Status DC Insulin Aspart (NovoLOG SUPPLEMENTAL SCALE) 1 Q4H SQ Last administered on 04/29 20:04; Start 04/19/17 at 17:00; Stop 04/29/17 at 20:58; Status DC Bumetanide (Bumex Inj) 1 mg STK-MED ONCE .ROUTE ; Start 04/20/17 at 11:08; Stop 04/20/17 at 11:09; Status DC Bumetanide (Bumex Inj) 1 mg NOW ONCE IV PUSH Last administered on 04/20/17 15:46; Start 04/20/17 at 13:15; Stop 04/20/17 at 13:16; Status DC Cefepime HCl 2000 mg/Sodium Chloride 100 ml @ 200 mls/hr DAILY IV Last administered on 04/27/17 10:19; Start 04/21/17 at 09:00; Stop 04/27/17 at 11 :15; Status DC Chlorhexidine Gluconate (Peridex 0.12% Liq) 15 ml BID@08,20 MT Last administered on 04/24/17 08:00; Start 04/20/17 at 20:00 Midazolam HCl 100 ml @ 2 mls/hr TITRATE PRN IV SEDATION; Start 04/20/17 at 14: 30; Stop 04/22/17 at 11:35; Status DC Fentanyl Citrate 250 ml @ 5 mls/hr TITRATE PRN IV SEDATION Last administered on 04/20/17 20:36; Start 04/20/17 at 14:30; Stop 04/22/17 at 11:35; Status DC Hydralazine HCl (Apresoline Inj) 20 mg Q4H PRN IV PUSH SYS BP GREATER THAN 170 MMHG Last administered on 04/22/17 18:02; Start 04/21/17 at 11:30 Insulin Detemir (Levemir Inj) 5 units Q12HR SQ Last administered on 04/30/17 09:04; Start 04/21/17 at 11:30 Bumetanide (Bumex Inj) 2 mg STK-MED ONCE .ROUTE ; Start 04/21/17 at 13:31; Stop 04/21/17 at 13:32; Status DC Lorazepam (Ativan Inj) 2 mg STK-MED ONCE .ROUTE ; Start 04/21/17 at 13:51; Stop 04/21/17 at 13:52; Status DC Morphine Sulfate (Morphine Inj) 2 mg ONCE ONCE IV PUSH Last administered on 14:15; Start 04/21/17 at 14:15; Stop 04/21/17 at 14:16; Status DC Lorazepam (Ativan Inj) 1 mg ONCE ONCE IV PUSH Last administered on 04/21/17 14:24; Start 04/21/17 at 14:15; Stop 04/21/17 at 14:16; Status DC Bumetanide (Bumex Inj) 2 mg NOW ONCE IV PUSH Last administered on 04/21/17 14:24; Start 04/21/17 at 14:15; Stop 04/21/17 at 14:16; Status DC Morphine Sulfate (Morphine Inj) 4 mg STK-MED ONCE .ROUTE ; Start 04/21/17 at 14 :08; Stop 04/21/17 at 14:09; Status DC Albuterol/ Ipratropium (Duoneb Neb) 1 ampule Q6HR NEB NEB Last administered on 04/26/17 11:48; Start 04/22/17 at 16:00; Stop 04/26/17 at 15:59; Status DC Methylprednisolone Sodium Succinate (SoluMEDROL INJ) 40 mg Q8H IV PUSH Last administered on 04/23/17 09:53; Start 04/22/17 at 17:00; Stop 04/23/17 at 16 :47; Status DC Morphine Sulfate (Morphine Inj) 1 mg Q4H PRN IV PAIN SCALE 1 TO 10 Last administered on 04/23/17 23:29; Start 04/22/17 at 18:00 Morphine Sulfate (Morphine Inj) 1 mg Q4H PRN IV PAIN 1-10; Start 04/22/17 at 18:15; Stop 04/22/17 at 18:15; Status DC Diltiazem HCl (Cardizem Inj) 10 mg NOW ONCE IV Last administered on 12:31; Start 04/23/17 at 12:15; Stop 04/23/17 at 12:16; Status DC Diltiazem HCl (Cardizem Cd) 300 mg NOW ONCE PO Last administered on 12:15; Start 04/23/17 at 12:15; Stop 04/23/17 at 12:16; Status DC Diltiazem HCl (Cardizem Cd) 300 mg DAILY PO Last administered on 04/24/17 08: 23; Start 04/24/17 at 09:00; Stop 04/24/17 at 13:07; Status DC Gabapentin (Neurontin) 100 mg BID PO Last administered on 04/24/17 08:29; Start 04/23/17 at 13:00; Stop 04/24/17 at 09:22; Status DC Methylprednisolone Sodium Succinate (SoluMEDROL INJ) 40 mg Q12H IV PUSH Last administered on 04/27/17 08:31; Start 04/23/17 at 21:00; Stop 04/27/17 at 11 :15; Status DC Diltiazem HCl (Cardizem Inj) 10 mg STAT ONCE IV Last administered on 22:14; Start 04/23/17 at 22:15; Stop 04/23/17 at 22:16; Status DC Metoprolol Tartrate (Lopressor Inj) 5 mg Q5M PRN IV PUSH HR>100 Last administered on 04/26/17 08:28; Start 04/24/17 at 02:15 Diltiazem HCl (Cardizem Inj) 15 mg ONCE ONCE IV Last administered on 10:10; Start 04/24/17 at 09:15; Stop 04/24/17 at 09:16; Status DC Gabapentin (Neurontin) 100 mg BID PO Last administered on 04/30/17 09:03; Start 04/24/17 at 21:00 Multivitamins/ Minerals Therapeutic (Theragran M Tab) 1 tab BID PO Last administered on 04/30/17 09:04; Start 04/24/17 at 10:00 Pantoprazole Sodium (Protonix) 20 mg BID PO Last administered on 04/30/17 09: 04; Start 04/24/17 at 09:00 Diltiazem HCl (Cardizem Cd) 360 mg DAILY PO Last administered on 04/30/17 09: 02; Start 04/25/17 at 09:00 Diltiazem HCl (Cardizem) 60 mg ONCE ONCE PO Last administered on 04/24/17 14 :37; Start 04/24/17 at 13:15; Stop 04/24/17 at 13:35; Status DC Digoxin (Lanoxin) 0.125 mg ONCE ONCE PO Last administered on 04/26/17 09:00 ; Start 04/26/17 at 09:00; Stop 04/26/17 at 09:12; Status DC Digoxin (Lanoxin) 0.125 mg DAILY PO Last administered on 04/30/17 09:03; Start 04/27/17 at 09:00 Amoxicillin/ Clavulanate Potassium (Augmentin) 875 mg Q12HR PO Last administered on 04/30/17 09:02; Start 04/27/17 at 12:00 Metronidazole (Flagyl) 500 mg Q8HR PO Last administered on 04/30/17 05:03; Start 04/27/17 at 14:00 Prednisone (Deltasone) 50 mg DAILY PO Last administered on 04/30/17 09:03; Start 04/28/17 at 09:00 Sodium Chloride 1,000 ml @ 84 mls/hr [id number] IV Last administered on 09:04; Start 04/27/17 at 15:00 Metoprolol Tartrate (Lopressor) 75 mg BID PO Last administered on 04/30/17 09 :03; Start 04/28/17 at 21:00 Insulin Aspart (NovoLOG SUPPLEMENTAL SCALE) 1 ACHS SQ Last administered on 09:02; Start 04/29/17 at 21:00 Cyclobenzaprine HCl (Flexeril) 5 mg Q8HR PO ; Start 04/30/17 at 14:00 Miscellaneous (Pill Splitter) 1 ea UNSCH PRN OTHER SEE LABEL COMMENTS; Start 04/30/17 at 11:00 A/P Problem List: (1) Acute hypoxemic respiratory failure ICD Code: J96.01 - Acute respiratory failure with hypoxia Status: Acute (2) Acute metabolic encephalopathy ICD Code: G93.41 - Metabolic encephalopathy (3) Pneumonia ICD Code: J18.9 - Pneumonia, unspecified organism Status: Acute (4) COPD with acute exacerbation ICD Code: J44.1 - Chronic obstructive pulmonary disease with (acute) exacerbation (5) Diabetes ICD Code: E11.9 - Type 2 diabetes mellitus without complications Status: Acute (6) Hypertension ICD Code: I10 - Hypertension Status: Acute (7) Acute on chronic kidney failure ICD Code: N17.9 - Acute kidney failure, unspecified; N18.9 - Chronic kidney disease, unspecified Assessment and Plan Acute metabolic encephalopathy-resolved - Sedation off. Metabolic encephalopathy resolved - CT of the head negative for acute findings, holding gabapentin -It is intermittent and she may have a underlying to dementia. She has been stable. Acute respiratory failure Pneumonia COPD with exacerbation Restrictive lung disease - Extubated 04/21. BiPAP use when necessary - DuoNeb every 4 hours scheduled and when necessary - Status post cefepime and azithromycin. Patient currently on Augmentin and Flagyl and is doing well. she is also on prednisone. Chronic A. fib - Rate controlled with metoprolol, Diltiazem, and digoxin. - Continue Eliquis Acute on chronic kidney disease - Nephrology -Dr. Grewal chronic renal insufficiency - Monitor renal function closely. Nelson catheter. - Current level continues to increase but she does have good urine output. Continue to monitor. Severe sepsis Pneumonia - Blood sputum and urine culture, all negative to date -Patient was treated empirically for questionable aspiration pneumonia where she was put on cefepime. s/p discontinue cefepime and azithromycin. on Augmentin and Flagyl. Continues to do well off of antibiotics Hypothyroidism Type 2 diabetes - Continue levothyroxine, sliding-scale insulin - SSI. Levemir Lower back pain -Secondary to muscle spasm. Will try Flexeril. To monitor clinically. Mild right-sided abdominal pain. -Otherwise asymptomatic. Seems to be chronic. -Will evaluate with a KUB. PROPH: - Bilateral lower extremity SCDs, Eliquis, Protonix Discharge Planning Renal function continued to worsen will need to continue hospitalization to monitor trend and improvement. Once patient is medically stable will be discharged to SNF. Discussed with patient, her family, and case management. Problem Qualifiers (1) Pneumonia: (2) Diabetes: Sandra Amin MD Apr 30, 2017 11:07
--- NOTE | 2017-04-30 13:11 | HHI.NPPN ---
Subjective History of Present Illness Patient is a 82-year-old with sepsis, COPD, intubation, diabetes, acute renal failure and chronic kidney disease. Additional Remarks Patient is alert, and now with nasal cannula, not in distress, tired confused Objective Data Data Vital Signs Date Time Temp Pulse Resp B/P (MAP) Pulse Ox O2 Delivery O2 Flow Rate FiO2 04/30/17 12:56 100 2.00 04/30/17 12:51 69 04/30/17 11:48 97.4 68 18 145/81 (102) 100 04/30/17 11:00 78 04/30/17 10:00 92 04/30/17 09:00 100 04/30/17 08:00 90 04/30/17 07:26 97.4 83 18 142/70 (94) 99 04/30/17 07:26 Nasal Cannula 2.00 04/30/17 07:00 79 04/30/17 05:46 81 04/30/17 05:00 78 04/30/17 04:00 Nasal Cannula 2.00 04/30/17 04:00 98.4 79 18 150/74 (99) 97 04/30/17 04:00 79 04/30/17 03:00 78 04/30/17 02:00 81 04/30/17 01:00 78 04/30/17 00:00 Nasal Cannula 2.00 04/30/17 00:00 79 04/30/17 00:00 98.2 79 18 144/70 (94) 98 04/29/17 23:00 78 04/29/17 22:00 81 04/29/17 21:00 78 04/29/17 20:00 79 04/29/17 20:00 98.0 79 18 154/71 (98) 99 04/29/17 20:00 Nasal Cannula 2.00 04/29/17 18:00 80 04/29/17 17:17 99 Nasal Cannula 2.00 04/29/17 17:00 78 04/29/17 16:47 154/70 (98) 04/29/17 16:17 78 04/29/17 16:16 79 04/29/17 15:28 97.7 74 18 166/74 (104) 99 04/29/17 14:00 62 -: 04/29/17 1730 04/30/17 0550 Physical Exam General Appearance: No Acute Distress, Comfortable, Obese Neck Neck Exam: Neck Supple Pulmonary Resp Exam: Decreased Bases Cardiology CV Exam: Arrhythmia Gastrointestinal/Abdomen GI Exam: Soft, Non-Tender, Bowel Sounds Present Extremeties Extremities Exam: Trace Edema Neurologic Neuro Exam: Alert, Awake Psychiatric Psych Exam: Appropriate Responses Assessment/Plan Problem List: (1) Acute on chronic renal insufficiency ICD Codes: N28.9 - Disorder of kidney and ureter, unspecified; N18.9 - Chronic kidney disease, unspecified Status: Acute Plan: Patient is in acute renal failure and had chronic kidney disease non oliguric , urine out put is adequate. Creatinine was from yesterday given NS at 84 cc/hr Cr 4.9 despite hydration, K 5 may need HD explained plan to get P/C and HD in am follow BMP (2) Hypertension ICD Codes: I10 - Hypertension Status: Acute Plan: Blood pressure was low requiring fluid bolus (3) Diabetes ICD Codes: E11.9 - Type 2 diabetes mellitus without complications Status: Acute Plan: Continue to monitor (4) COPD with acute exacerbation ICD Codes: J44.1 - Chronic obstructive pulmonary disease with (acute) exacerbation Plan: extubated Problem Qualifiers (1) Diabetes: Tonja Grewal MD Apr 30, 2017 13:11
[2017-04-30] MEDS ORDERED: SODIUM CHLOR 0.9% 1000 ML INJ 1,000 ML OTHER PRN (13:26)
[2017-04-30] MEDS ORDERED: SODIUM CHLOR 0.9% 1000 ML INJ 1,000 ML IV PRN (13:26)
[2017-04-30] MEDS ORDERED: GELATIN 12 MM/7 MM FOAM TOP PRN (13:30)
[2017-04-30] MEDS ORDERED: SODIUM CHLORIDE 0.9% FLUSH 10 ML FLUSH IV FLUSH PRN (13:30)
[2017-04-30] MEDS ORDERED: MANNITOL 12.5 GM/50 ML VIAL IV PRN (13:30)
[2017-04-30] MEDS ORDERED: cloNIDine HCL 0.1 MG TAB PO PRN (13:30)
[2017-04-30] MEDS ORDERED: HEPARIN SODIUM - IV 10,000 UNITS/10 ML VIAL IV FLUSH PRN (13:30)
[2017-04-30] MEDS ORDERED: NITROGLYCERIN 0.4 MG SL 25 TABS/BTL SL PRN (13:30)
[2017-04-30] MEDS ORDERED: ONDANSETRON HCL 4 MG/2 ML VIAL IV PUSH PRN (13:30)
--- NOTE | 2017-04-30 14:45 | RADRPT ---
EXAM DATE/TIME: 04/30/2017 13:26 [facility] COMPARISON: ABDOMEN KUB ONLY, January 03, 2013, 8:46. INDICATIONS : Abdominal pain. Possible obstruction. MEDICAL HISTORY : None. SURGICAL HISTORY : None. ENCOUNTER: Initial ACUITY: 3 days PAIN SCORE: 7/10 LOCATION: Bilateral lower quadrant FINDINGS: 4 AP supine views of the abdomen and pelvis were obtained and demonstrate moderate gaseous distention in the ascending colon and transverse colon. The cecum and ascending colon measure up to approximate ly 13 cm in diameter. There is a moderate amount of stool noted in the distal colon. There are multip le loops of nondilated air-containing small bowel in the left lower quadrant. There is no definite fr ee air or mass effect. CONCLUSION: Gaseous dilatation of colon greatest in the cecal region measuring up to 13 cm. Diffe rential diagnosis includes ileus. A distal colonic obstruction could have a similar appearance. Guevara Crowell MD on April 30, 2017 at 14:41 Board Certified Radiologist. This report was verified electronically.
[2017-04-30] MEDS: CYCLOBENZAPRINE HCL 10 MG TAB PO SCH ×2 (14:58→21:05)
[2017-04-30] MEDS: ATORVASTATIN 20 MG TAB PO SCH (20:57)
[2017-05-01] VITALS (22 sets, daily range): BP systolic 86–129; BP diastolic 41–94; PULSE 54–119; RESP 14–20; TEMP 97.7–98.7; O2SAT 96–100
[2017-05-01] MEDS: SODIUM CHLOR 0.9% 1000 ML INJ 1,000 ML IV SCH ×3 (02:25→17:36)
[2017-05-01] MEDS: CHLORHEXIDINE GLUCONATE 2 % 1 PACK (2 CLOTHS) TOP SCH (04:00)
[2017-05-01 04:47] LABS: AUTOMATED NEUTROPHIL # 17.8 TH/MM3 (1.8-7.7); BASOPHIL # 0.1 TH/MM3 (0-0.2); BASOPHIL % 0.3 % (0.0-2.0); HEMATOCRIT 25.5 % (35.0-46.0); LYMPH % 1.9 % (9.0-44.0); LYMPHOCYTE # 0.4 TH/MM3 (1.0-4.8); MEAN CELL VOLUME 94.8 FL (80.0-100.0); MEAN CORPUSCULAR HEMOGLOBIN 29.2 PG (27.0-34.0); MEAN CORPUSCULAR HGB CONC 30.8 % (32.0-36.0); MONO % 8.6 % (0.0-8.0); NEUT % 89.2 % (16.0-70.0); PLATELET COUNT 225 TH/MM3 (150-450); RED BLOOD COUNT 2.69 MIL/MM3 (4.00-5.30); WHITE BLOOD COUNT 19.9 TH/MM3 (4.0-11.0)
[2017-05-01 04:54] LABS: HEMO FLAGS AUTO DIFF
[2017-05-01 04:57] LABS: PROTHROMBIN TIME - PATIENT 10.9 SEC (9.8-11.6)
[2017-05-01 05:11] LABS: BICARBONATE 20.1 MEQ/L (21.0-32.0); POTASSIUM 5.2 MEQ/L (3.5-5.1)
[2017-05-01] MEDS: LEVOTHYROXINE SODIUM 125 MCG TAB PO SCH (05:32)
[2017-05-01] MEDS: CYCLOBENZAPRINE HCL 10 MG TAB PO SCH (05:33)
[2017-05-01] MEDS: metroNIDAZOLE 500 MG TAB PO SCH ×3 (05:33→21:54)
[2017-05-01 07:31] LABS: BANDS 5 % (0-6); MYELOCYTES 2 % (0-0); NEUTROPHIL # MANUAL DIFF 18.9 TH/MM3 (1.8-7.7); POLYS (SEG NEUTROPHILS) 88 % (16-70); WBC DIFF SAMPLE 100
[2017-05-01 07:32] LABS: PLATELET ESTIMATE SMEAR NORMAL (NORMAL); PLATELET MORPHOLOGY NORMAL (NORMAL); SCAN/DIFF FINAL DIFF MANUAL
[2017-05-01] MEDS: INSULIN ASPART SUPPLEMENTAL SCALE SQ SCH ×4 (08:00→21:00)
[2017-05-01] MEDS: INSULIN DETEMIR 100 UNITS/ML VIAL SQ SCH ×2 (09:00→22:02)
[2017-05-01] MEDS: SODIUM CHLORIDE 0.9% FLUSH 10 ML FLUSH IV FLUSH SCH ×2 (09:00→21:00)
[2017-05-01] MEDS: MULTIVITAMINS/MINERALS THERAPEUTIC TAB PO SCH ×2 (09:24→21:55)
[2017-05-01] MEDS: PANTOPRAZOLE SOD 20 MG DELAYED RELEASE TAB PO SCH ×2 (09:24→21:55)
[2017-05-01] MEDS: GABAPENTIN 100 MG CAP PO SCH (09:24)
[2017-05-01] MEDS: APIXABAN 2.5 MG TABLET PO SCH ×2 (09:24→21:55)
[2017-05-01] MEDS: DILTIAZEM-CD 180 MG CAP ER PO SCH (09:24)
[2017-05-01] MEDS: METOPROLOL TARTRATE 25 MG TAB PO SCH ×2 (09:25→21:55)
[2017-05-01] MEDS: DIGOXIN 0.125 MG TAB PO SCH (09:25)
[2017-05-01] MEDS: CALCITRIOL 0.25 MCG CAP PO SCH (09:25)
[2017-05-01] MEDS: CHOLECALCIFEROL (VIT D3) 400 UNIT TAB PO SCH ×2 (10:34→21:55)
[2017-05-01] MEDS: AMOXICILLIN/CLAVULANATE K 875 MG TAB PO SCH ×2 (10:34→21:54)
--- NOTE | 2017-05-01 10:50 | PD.CONS ---
HPI History of Present Illness This is a 82 year old who is currently hospitalized for acute hypoxemic respiratory failure, acute metabolic encephalopathy, pneumonia, COPD with acute exacerbation, diabetes, hypertension, acute on chronic kidney failure, sepsis, pneumonia, chronic atrial fibrillation, hypothyroidism, diabetes, and right sided abdominal pain. A KUB was performed (04/30/17) to further evaluate her abdominal pain and this revealed gaseous dilatation of colon greatest in the cecal region measuring up to 13 cm. Differential diagnosis includes ileus. A distal colonic obstruction could have a similar appearance. The patient is extremely lethargic and unable to provide any history. Her reports that she had been complaining of abdominal pain prior to his hospitalization, but he cannot provide any details and the patient is unable to describe. He denies her having any recent nausea or vomiting and states that she has had decreased appetite, but has been eating. She does sometimes have issues with constipation, but has been moving her bowels and her daughter states that she had a bowel movement yesterday. They do not recall when her last colonoscopy was, but states that it was likely about 5 years ago. They do not recall the findings. She patient has a history of small bowel obstruction (01/05/13) and underwent exploratory laparotomy with lysis of adhesions for abdominal pain, probable small bowel obstruction (01/05/13) with Dr. Tam. Of note, the patient is being followed by nephrology for acute on chronic kidney disease and the plan is for her to have a vascath placed and be started on hemodialysis. (Yamile Cosme) PFSH Past Medical History Hypertension Atrial fibrillation Type 2 DM Hypothyroidism Hyperlipidemia Peripheral neuropathy Small bowel obstruction COPD Hx thyroid cancer Past Surgical History Total thyroidectomy in 2010 secondary to thyroid cancer Partial small bowel resection with lysis of adhesions Cholecystectomy (Yamile Cosme) Coded Allergies: celecoxib (Unverified Allergy, Severe, SYNCOPE, 04/16/17) Medications Allergies Coded Allergies Type Severity Reaction Last Updated Verified celecoxib Allergy Severe SYNCOPE 04/16/17 No Active Scripts Medications Dose Route/Sig Max Daily Dose Days Date Category Dose Instructions Proair Hfa 8.5 GM Inh (Albuterol Sulfate) 90 Mcg/Act Aer 2 Puff INH Q4-6H PRN 04/17/17 Rx 108 mcg/actuation Metoprolol Tartrate 50 Mg Tab 50 Mg PO BID 04/16/17 Reported Oxygen tank (Oxygen) 1 Ea Tank 2 Liter IGLESIA.CANULA CONTINUOUS 10/07/16 Rx Oxygen Concentrator Portable Gaseous 2 L/min via Nasal Cannula Continuous For 99 months Lantus Solostar Pen Inj (Insulin Glargine) 300 Unit/3 Ml Pen 22 Units SQ HS 09/06/16 Reported Vitamin D (Cholecalciferol) 400 Unit Cap 400 Units PO BID 09/06/16 Reported Multivitamin Gummies Adul (Multiple Vitamins W/ Minerals) 1 Chw Chw 1 Chew PO BID 09/06/16 Reported Eliquis (Apixaban) 2.5 Mg Tab 2.5 Mg PO BID 09/06/16 Reported Calcitriol 0.25 Mcg Cap 0.25 Mcg PO DAILY 09/06/16 Reported Omeprazole 20 Mg Tab 20 Mg PO BID 09/06/16 Reported Gabapentin 100 Mg Cap 100 Mg PO BID 09/06/16 Reported Lisinopril 40 Mg Tab 40 Mg PO DAILY 09/06/16 Reported Atorvastatin (Atorvastatin Calcium) 20 Mg Tab 20 Mg PO HS 09/06/16 Reported Levothyroxine (Levothyroxine Sodium) 125 Mcg Tab 125 Mcg PO DAILY 09/06/16 Reported Diltiazem ER 24 HR 300 Mg Lexy 300 Mg PO DAILY 09/06/16 Reported Family History Noncontributory Social History Denies smoking or alcohol use (Yamile Cosme) Review of Systems Constitutional: COMPLAINS OF: Fatigue, Change in appetite, DENIES: Fever, Weight loss, Chills Respiratory: COMPLAINS OF: Shortness of breath, DENIES: Cough Cardiovascular: DENIES: Chest pain Gastrointestinal: COMPLAINS OF: Abdominal pain, Constipation, Swelling of Abdomen (mildly), DENIES: Black stools, Bloody stools, Nausea, Vomiting ROS Extremely lethargic, difficult to obtain (Yamile Cosme) GI Exam Vitals I&O Vital Signs Date Time Temp Pulse Resp B/P (MAP) Pulse Ox O2 Delivery O2 Flow Rate FiO2 05/01/17 07:01 74 05/01/17 05:51 77 05/01/17 05:00 79 05/01/17 04:00 98.1 75 18 120/57 (78) 98 05/01/17 04:00 75 05/01/17 03:00 78 05/01/17 02:00 77 05/01/17 01:00 81 05/01/17 00:00 86 05/01/17 00:00 98.1 86 18 112/94 (100) 96 04/30/17 23:00 81 04/30/17 22:00 80 04/30/17 21:00 78 04/30/17 20:00 98.4 83 18 140/72 (94) 97 04/30/17 20:00 83 04/30/17 20:00 Nasal Cannula 2.00 04/30/17 18:00 74 04/30/17 17:00 70 04/30/17 16:00 76 04/30/17 15:34 97.3 58 18 134/49 (77) 99 04/30/17 15:00 58 04/30/17 12:56 100 2.00 04/30/17 12:51 69 04/30/17 11:48 97.4 68 18 145/81 (102) 100 04/30/17 11:00 78 I/O 04/30/17 04/30/17 04/30/17 05/01/17 05/01/17 05/01/17 07:00 15:00 23:00 07:00 15:00 23:00 Intake Total 1304 ml 1080 ml Output Total 550 ml 450 ml 500 ml Balance -550 ml 854 ml 580 ml Intake Oral 660 ml 240 ml IV Total 644 ml 840 ml Output Urine Total 550 ml 450 ml 500 ml # Bowel Movements 0 1 0 Imaging Last Impressions Abdomen X-Ray 04/30/17 1324 Signed Impressions: Service Date/Time: Sunday, April 30, 2017 13:26 - CONCLUSION: Gaseous dilatation of colon greatest in the cecal region measuring up to 13 cm. Differential diagnosis includes ileus. A distal colonic obstruction could have a similar appearance. Guevara Crowell MD Chest X-Ray 04/23/17 0600 Signed Impressions: Service Date/Time: Sunday, April 23, 2017 04:17 - CONCLUSION: 1. Suboptimal single view study with mild motion artifact. 2. No significant change in the bibasilar opacities. Guevara Crowell MD Renal Ultrasound 04/20/17 0000 Signed Impressions: Service Date/Time: April 15:07 - CONCLUSION: 1. There is no hydronephrosis. 2. Stable 8mm nonobstructing left renal stone. Duncan Avery MD Head CT 04/19/17 0702 Signed Impressions: Service Date/Time: Wednesday, April 19, 2017 07:29 - CONCLUSION: 1. Cerebral white matter hypodensity characteristic of chronic microvascular ischemic disease. 2. No evidence of acute infarct, hemorrhage, mass or edema. Renato Coughlin MD Laboratory Test 05/01/17 04:40 White Blood Count 19.9 TH/MM3 Red Blood Count 2.69 MIL/MM3 Hemoglobin 7.9 GM/DL Hematocrit 25.5 % Mean Corpuscular Volume 94.8 FL Mean Corpuscular Hemoglobin 29.2 PG Mean Corpuscular Hemoglobin Concent 30.8 % Red Cell Distribution Width 15.0 % Platelet Count 225 TH/MM3 Mean Platelet Volume 8.0 FL Neutrophils (%) (Auto) 89.2 % Lymphocytes (%) (Auto) 1.9 % Monocytes (%) (Auto) 8.6 % Eosinophils (%) (Auto) 0.0 % Basophils (%) (Auto) 0.3 % Neutrophils # (Auto) 17.8 TH/MM3 Lymphocytes # (Auto) 0.4 TH/MM3 Monocytes # (Auto) 1.7 TH/MM3 Eosinophils # (Auto) 0.0 TH/MM3 Basophils # (Auto) 0.1 TH/MM3 CBC Comment AUTO DIFF Differential Total Cells Counted 100 Neutrophils % (Manual) 88 % Band Neutrophils % 5 % Lymphocytes % 2 % Monocytes % 3 % Neutrophils # (Manual) 18.9 TH/MM3 Myelocytes 2 % Differential Comment FINAL DIFF MANUAL Platelet Estimate NORMAL Platelet Morphology Comment NORMAL Prothrombin Time 10.9 SEC Prothromb Time International Ratio 1.0 RATIO Blood Urea Nitrogen 106 MG/DL Creatinine 5.30 MG/DL Random Glucose 297 MG/DL Calcium Level 8.2 MG/DL Sodium Level 136 MEQ/L Potassium Level 5.2 MEQ/L Chloride Level 106 MEQ/L Carbon Dioxide Level 20.1 MEQ/L Anion Gap 10 MEQ/L Estimat Glomerular Filtration Rate 9 ML/MIN Date/Time Source Procedure Growth Status 04/19/17 16:54 Blood Peripheral Aerobic Blood Culture - Final NO GROWTH IN 5 DAYS Complete 04/19/17 16:54 Blood Peripheral Anaerobic Blood Culture - Final NO GROWTH IN 5 DAYS Complete 04/19/17 13:10 Sputum Endotracheal Gram Stain - Final Complete 04/19/17 13:10 Sputum Endotracheal Sputum Culture - Final HEAVY GROWTH NORMAL RESPIRATORY GORDON Complete 04/19/17 06:15 Urine Clean Catch Urine Culture - Final NO GROWTH Complete Physical Examination HEENT: Normocephalic; atraumatic; no jaundice. CHEST: Resp. even/unlabored, shallow CARDIAC: Irregular ABDOMEN: Soft, mildly distended, diffuse abdominal tenderness, more so in right side; no hepatosplenomegaly; bowel sounds are present in all four quadrants. EXTREMITIES: Generalized edema. SKIN: Normal; no rash; no jaundice. ENTRY LEVEL: Lethargic (Yamile Cosme) Assessment and Plan Plan ASSESSMENT: - Abdominal pain, colonic ileus. KUB (04/30/17)----> Gaseous dilatation of colon greatest in the cecal region measuring up to 13 cm. Differential diagnosis includes ileus. A distal colonic obstruction could have a similar appearance. Of note, she has a history of SBO and underwent exploratory laparotomy with lysis of adhesions for abdominal pain, probable small bowel obstruction (01/05/13) with Dr. Tam. NPO. - Acute on chronic kidney disease with electrolyte abnormalities. Plan is for vascath and possible HD. - Respiratory failure, COPD Exacerbation, PNA. Flagyl, Augmentin - Atrial fibrillation. Digoxin, cardizem, Eliquis, BB - HTN, DM, metabolic encephalopathy, hypothyroidism per attending PLAN: - NPO - NGT to LIWS - Colon tube to gravity (red tube) - Gastrografin enema - KUB in am - Monitor labs - Supportive care - Further recommendations to follow based on results of above - Pt seen and examined by Dr. Cooper and myself and this note is written on her behalf (Yamile Cosme) Physician Comments seen, examined agree with above discussed wit -agree with above (Delfina Cooper MD) Yamile Cosme May 01, 2017 10:50 Delfina Cooper MD May 01, 2017 18:59
--- NOTE | 2017-05-01 11:57 | HHI.PR ---
Subjective Remarks Follow-up for acute renal failure and right-sided abdominal pain Patient very lethargic today. Able to wake patient up but she falls asleep quickly. Her daughter and at the bedside during the interview. He stated that she was fine last night but is very sleepy today. Patient states she continues to have pain in her abdomen. Denies any nausea/ vomiting. Otherwise no other complaints except feeling sleepy. Objective Vitals Vital Signs Date Time Temp Pulse Resp B/P (MAP) Pulse Ox O2 Delivery O2 Flow Rate FiO2 05/01/17 07:01 74 05/01/17 05:51 77 05/01/17 05:00 79 05/01/17 04:00 98.1 75 18 120/57 (78) 98 05/01/17 04:00 75 05/01/17 03:00 78 05/01/17 02:00 77 05/01/17 01:00 81 05/01/17 00:00 86 05/01/17 00:00 98.1 86 18 112/94 (100) 96 04/30/17 23:00 81 04/30/17 22:00 80 04/30/17 21:00 78 04/30/17 20:00 98.4 83 18 140/72 (94) 97 04/30/17 20:00 83 04/30/17 20:00 Nasal Cannula 2.00 04/30/17 18:00 74 04/30/17 17:00 70 04/30/17 16:00 76 04/30/17 15:34 97.3 58 18 134/49 (77) 99 04/30/17 15:00 58 04/30/17 12:56 100 2.00 04/30/17 12:51 69 I/O 04/30/17 04/30/17 04/30/17 05/01/17 05/01/17 05/01/17 07:00 15:00 23:00 07:00 15:00 23:00 Intake Total 1304 ml 1080 ml Output Total 550 ml 450 ml 500 ml Balance -550 ml 854 ml 580 ml Intake Oral 660 ml 240 ml IV Total 644 ml 840 ml Output Urine Total 550 ml 450 ml 500 ml # Bowel Movements 0 1 0 Result Diagram: 05/01/1743905/01/17439 Objective Remarks GENERAL: Morbid obese in no acute distress. CARDIOVASCULAR: Regular rate and rhythm without murmurs, gallops, or rubs. RESPIRATORY: Breath sounds equal bilaterally. No accessory muscle use. GASTROINTESTINAL: Abdomen soft,, nondistended. Very minimal right-sided abdominal pain with very deep pressure/palpation. Negative for any peritoneal signs. BACK: Paraspinal muscle spasm located in the mid to lower back. NEURO: Patient very lethargic unable to obtain information. Procedures SP VDRF SP INTUBATION AND EXTUBATION Medications and IVs Current Medications Propofol 100 ml @ As Directed STK-MED ONCE .ROUTE ; Start 04/19/17 at 06:24; Stop 04/19/17 at 06:25; Status DC Etomidate (Amidate Inj) 20 mg ONCE ONCE IVP Last administered on 04/19/17 06 :20; Start 04/19/17 at 06:30; Stop 04/19/17 at 06:31; Status DC Succinylcholine Chloride (Quelicin Inj) 100 mg ONCE ONCE IV PUSH Last administered on 04/19/17 06:20; Start 04/19/17 at 06:30; Stop 04/19/17 at 06 :31; Status DC Albuterol/ Ipratropium (Duoneb Neb) 1 ampule Q15M INH Last administered on 07:07; Start 04/19/17 at 06:30; Stop 04/19/17 at 07:01; Status DC Sodium Chloride (NS Flush) 2 ml UNSCH PRN IVF FLUSH AFTER USING IV ACCESS; Start 04/19/17 at 06:30; Stop 04/19/17 at 08:59; Status DC Propofol 100 ml @ 0 mls/hr TITRATE PRN IV Ordered RASS Last administered on 06:30; Start 04/19/17 at 06:30; Stop 04/19/17 at 08:59; Status DC Sodium Chloride 1,000 ml @ 999 mls/hr BOLUS ONCE IV Last administered on 07:15; Start 04/19/17 at 07:15; Stop 04/19/17 at 08:15; Status DC Sodium Chloride 1,000 ml @ 999 mls/hr BOLUS ONCE IV Last administered on 07:30; Start 04/19/17 at 07:30; Stop 04/19/17 at 08:30; Status DC Propofol 100 ml @ 3.6 mls/hr TITRATE PRN IV SEDATION Last administered on 02:09; Start 04/19/17 at 08:30; Stop 04/22/17 at 11:35; Status DC Sodium Chloride (NS Flush) 2 ml UNSCH PRN IV FLUSH FLUSH AFTER USING IV ACCESS Last administered on 04/22/17 18:02; Start 04/19/17 at 08:30 Sodium Chloride (NS Flush) 2 ml BID IV FLUSH Last administered on 05/01/17 09 :00; Start 04/19/17 at 09:00 Albuterol/ Ipratropium (Duoneb Neb) 1 ampule Q6HR NEB NEB Last administered on 04/22/17 08:39; Start 04/19/17 at 10:00; Stop 04/22/17 at 11:34; Status DC Albuterol/ Ipratropium (Duoneb Neb) 1 ampule Q2HR NEB PRN INH SHORTNESS OF BREATH Last administered on 04/20/17 12:34; Start 04/19/17 at 08:30 Chlorhexidine Gluconate (Peridex 0.12% Liq) 15 ml BID@08,20 MT Last administered on 04/22/17 10:04; Start 04/19/17 at 20:00; Stop 04/22/17 at 18 :11; Status DC Pantoprazole Sodium (Protonix Inj) 40 mg DAILY IV PUSH Last administered on 09:53; Start 04/19/17 at 09:00; Stop 04/23/17 at 16:47; Status DC Miscellaneous Information 1 [id number] ; Start 04/19/17 at 08:30 Chlorhexidine Gluconate (Chlorhexidine 2% Cloth) Taper DAILY@04 TOP Last administered on 04/26/17 04:00; Start 04/20/17 at 04:00; Stop 04/16/18 at 03 :59 Chlorhexidine Gluconate (Chlorhexidine 2% Cloth) 3 pack UNSCH PRN TOP HYGIENIC CARE; Start 04/19/17 at 08:30 Methylprednisolone Sodium Succinate (SoluMEDROL INJ) 60 mg Q6H IV PUSH Last administered on 04/22/17 09:58; Start 04/19/17 at 09:00; Stop 04/22/17 at 11 :35; Status DC Cefepime HCl 2000 mg/Sodium Chloride 100 ml @ 200 mls/hr Q12H IV Last administered on 04/20/17 07:53; Start 04/19/17 at 09:00; Stop 04/20/17 at 13 :58; Status DC Azithromycin 500 mg/Sodium Chloride 250 ml @ 250 mls/hr Q24H IV Last administered on 04/23/17 15:28; Start 04/19/17 at 14:00; Stop 04/23/17 at 16 :47; Status DC Sodium Chloride 1,000 ml @ 999 mls/hr BOLUS ONCE IV Last administered on 11:00; Start 04/19/17 at 13:30; Stop 04/19/17 at 14:30; Status DC Sodium Chloride 1,000 ml @ 999 mls/hr BOLUS ONCE IV ; Start 04/19/17 at 13:30 ; Stop 04/19/17 at 14:30; Status DC Apixaban (Eliquis) 2.5 mg BID PO Last administered on 05/01/17 09:24; Start 04/19/17 at 21:00 Atorvastatin Calcium (Lipitor) 20 mg HS PO Last administered on 04/30/17 20: 57; Start 04/19/17 at 21:00 Calcitriol (Rocaltrol) 0.25 mcg DAILY PO Last administered on 05/01/17 09:25 ; Start 04/20/17 at 09:00 Levothyroxine Sodium (Synthroid) 125 mcg DAILY@0600 PO Last administered on 05:32; Start 04/20/17 at 06:00 Metoprolol Tartrate (Lopressor) 50 mg BID PO Last administered on 04/28/17 09 :20; Start 04/19/17 at 21:00; Stop 04/28/17 at 14:50; Status DC Cholecalciferol (Vitamin D3) 400 units BID PO Last administered on 05/01/17 10:34; Start 04/19/17 at 21:00 Influenza Virus Vaccine (Flu (Quadrivalent) Vaccine Inj) 0.5 ml ONCE ONCE IM Last administered on 04/20/17 09:56; Start 04/20/17 at 10:00; Stop 04/20/17 at 10:01; Status DC Sodium Chloride 1,000 ml @ 75 mls/hr [id number] IV Last administered on 21:20; Start 04/19/17 at 15:00; Stop 04/22/17 at 11:35; Status DC Insulin Aspart (NovoLOG SUPPLEMENTAL SCALE) 1 Q4H SQ Last administered on 04/29 20:04; Start 04/19/17 at 17:00; Stop 04/29/17 at 20:58; Status DC Bumetanide (Bumex Inj) 1 mg STK-MED ONCE .ROUTE ; Start 04/20/17 at 11:08; Stop 04/20/17 at 11:09; Status DC Bumetanide (Bumex Inj) 1 mg NOW ONCE IV PUSH Last administered on 04/20/17 15:46; Start 04/20/17 at 13:15; Stop 04/20/17 at 13:16; Status DC Cefepime HCl 2000 mg/Sodium Chloride 100 ml @ 200 mls/hr DAILY IV Last administered on 04/27/17 10:19; Start 04/21/17 at 09:00; Stop 04/27/17 at 11 :15; Status DC Chlorhexidine Gluconate (Peridex 0.12% Liq) 15 ml BID@08,20 MT Last administered on 04/24/17 08:00; Start 04/20/17 at 20:00 Midazolam HCl 100 ml @ 2 mls/hr TITRATE PRN IV SEDATION; Start 04/20/17 at 14: 30; Stop 04/22/17 at 11:35; Status DC Fentanyl Citrate 250 ml @ 5 mls/hr TITRATE PRN IV SEDATION Last administered on 04/20/17 20:36; Start 04/20/17 at 14:30; Stop 04/22/17 at 11:35; Status DC Hydralazine HCl (Apresoline Inj) 20 mg Q4H PRN IV PUSH SYS BP GREATER THAN 170 MMHG Last administered on 04/22/17 18:02; Start 04/21/17 at 11:30 Insulin Detemir (Levemir Inj) 5 units Q12HR SQ Last administered on 05/01/17 09:00; Start 04/21/17 at 11:30; Stop 05/01/17 at 10:54; Status DC Bumetanide (Bumex Inj) 2 mg STK-MED ONCE .ROUTE ; Start 04/21/17 at 13:31; Stop 04/21/17 at 13:32; Status DC Lorazepam (Ativan Inj) 2 mg STK-MED ONCE .ROUTE ; Start 04/21/17 at 13:51; Stop 04/21/17 at 13:52; Status DC Morphine Sulfate (Morphine Inj) 2 mg ONCE ONCE IV PUSH Last administered on 14:15; Start 04/21/17 at 14:15; Stop 04/21/17 at 14:16; Status DC Lorazepam (Ativan Inj) 1 mg ONCE ONCE IV PUSH Last administered on 04/21/17 14:24; Start 04/21/17 at 14:15; Stop 04/21/17 at 14:16; Status DC Bumetanide (Bumex Inj) 2 mg NOW ONCE IV PUSH Last administered on 04/21/17 14:24; Start 04/21/17 at 14:15; Stop 04/21/17 at 14:16; Status DC Morphine Sulfate (Morphine Inj) 4 mg STK-MED ONCE .ROUTE ; Start 04/21/17 at 14 :08; Stop 04/21/17 at 14:09; Status DC Albuterol/ Ipratropium (Duoneb Neb) 1 ampule Q6HR NEB NEB Last administered on 04/26/17 11:48; Start 04/22/17 at 16:00; Stop 04/26/17 at 15:59; Status DC Methylprednisolone Sodium Succinate (SoluMEDROL INJ) 40 mg Q8H IV PUSH Last administered on 04/23/17 09:53; Start 04/22/17 at 17:00; Stop 04/23/17 at 16 :47; Status DC Morphine Sulfate (Morphine Inj) 1 mg Q4H PRN IV PAIN SCALE 1 TO 10 Last administered on 04/23/17 23:29; Start 04/22/17 at 18:00 Morphine Sulfate (Morphine Inj) 1 mg Q4H PRN IV PAIN 1-10; Start 04/22/17 at 18:15; Stop 04/22/17 at 18:15; Status DC Diltiazem HCl (Cardizem Inj) 10 mg NOW ONCE IV Last administered on 12:31; Start 04/23/17 at 12:15; Stop 04/23/17 at 12:16; Status DC Diltiazem HCl (Cardizem Cd) 300 mg NOW ONCE PO Last administered on 12:15; Start 04/23/17 at 12:15; Stop 04/23/17 at 12:16; Status DC Diltiazem HCl (Cardizem Cd) 300 mg DAILY PO Last administered on 04/24/17 08: 23; Start 04/24/17 at 09:00; Stop 04/24/17 at 13:07; Status DC Gabapentin (Neurontin) 100 mg BID PO Last administered on 04/24/17 08:29; Start 04/23/17 at 13:00; Stop 04/24/17 at 09:22; Status DC Methylprednisolone Sodium Succinate (SoluMEDROL INJ) 40 mg Q12H IV PUSH Last administered on 04/27/17 08:31; Start 04/23/17 at 21:00; Stop 04/27/17 at 11 :15; Status DC Diltiazem HCl (Cardizem Inj) 10 mg STAT ONCE IV Last administered on 22:14; Start 04/23/17 at 22:15; Stop 04/23/17 at 22:16; Status DC Metoprolol Tartrate (Lopressor Inj) 5 mg Q5M PRN IV PUSH HR>100 Last administered on 04/26/17 08:28; Start 04/24/17 at 02:15 Diltiazem HCl (Cardizem Inj) 15 mg ONCE ONCE IV Last administered on 10:10; Start 04/24/17 at 09:15; Stop 04/24/17 at 09:16; Status DC Gabapentin (Neurontin) 100 mg BID PO Last administered on 05/01/17 09:24; Start 04/24/17 at 21:00; Stop 05/01/17 at 11:56; Status DC Multivitamins/ Minerals Therapeutic (Theragran M Tab) 1 tab BID PO Last administered on 05/01/17 09:24; Start 04/24/17 at 10:00 Pantoprazole Sodium (Protonix) 20 mg BID PO Last administered on 05/01/17 09: 24; Start 04/24/17 at 09:00 Diltiazem HCl (Cardizem Cd) 360 mg DAILY PO Last administered on 05/01/17 09: 24; Start 04/25/17 at 09:00 Diltiazem HCl (Cardizem) 60 mg ONCE ONCE PO Last administered on 04/24/17 14 :37; Start 04/24/17 at 13:15; Stop 04/24/17 at 13:35; Status DC Digoxin (Lanoxin) 0.125 mg ONCE ONCE PO Last administered on 04/26/17 09:00 ; Start 04/26/17 at 09:00; Stop 04/26/17 at 09:12; Status DC Digoxin (Lanoxin) 0.125 mg DAILY PO Last administered on 05/01/17 09:25; Start 04/27/17 at 09:00 Amoxicillin/ Clavulanate Potassium (Augmentin) 875 mg Q12HR PO Last administered on 05/01/17 10:34; Start 04/27/17 at 12:00 Metronidazole (Flagyl) 500 mg Q8HR PO Last administered on 05/01/17 05:33; Start 04/27/17 at 14:00 Prednisone (Deltasone) 50 mg DAILY PO Last administered on 04/30/17 09:03; Start 04/28/17 at 09:00; Stop 04/30/17 at 11:08; Status DC Sodium Chloride 1,000 ml @ 84 mls/hr [id number] IV Last administered on 02:25; Start 04/27/17 at 15:00 Metoprolol Tartrate (Lopressor) 75 mg BID PO Last administered on 05/01/17 09 :25; Start 04/28/17 at 21:00 Insulin Aspart (NovoLOG SUPPLEMENTAL SCALE) 1 ACHS SQ Last administered on 08:00; Start 04/29/17 at 21:00; Stop 05/01/17 at 10:54; Status DC Cyclobenzaprine HCl (Flexeril) 5 mg Q8HR PO Last administered on 05/01/17 05: 33; Start 04/30/17 at 14:00; Stop 05/01/17 at 11:56; Status DC Miscellaneous (Pill Splitter) 1 ea UNSCH PRN OTHER SEE LABEL COMMENTS; Start 04/30/17 at 11:00 Sodium Chloride 1,000 ml @ 0 mls/hr Q0M PRN OTHER For Prime & Rinse Back; Start 04/30/17 at 13:26 Heparin Sodium (Porcine) (Heparin Inj) 8,000 units UNSCH PRN IV FLUSH WITH DIALYSIS; Start 04/30/17 at 13:30 Sodium Chloride 1,000 ml @ 200 mls/hr Q5H PRN IV WITH DIALYSIS; Start at 13:26 Sodium Chloride 1,000 ml @ 0 mls/hr Q0M PRN OTHER WITH DIALYSIS; Start at 13:26 Mannitol (Mannitol Inj) 12.5 gm UNSCH PRN IV WITH DIALYSIS; Start 04/30/17 at 13:30 Albumin Human 100 ml @ 60 mls/hr UNSCH PRN IV WITH DIALYSIS; Start 04/30/17 at 13:30 Sodium Chloride (NS Flush) 5 ml UNSCH PRN IV FLUSH WITH DIALYSIS; Start at 13:30 Heparin Sodium (Porcine) (Heparin Inj) UNSCH PRN .XX WITH DIALYSIS; Start at 13:30 Gentamicin Sulfate (Gentamicin (Dialysis) Inj) 20 mg UNSCH PRN OTHER WITH DIALYSIS; Start 04/30/17 at 13:30 Ondansetron HCl (Zofran Inj) 4 mg UNSCH PRN IV PUSH WITH DIALYSIS; Start 04/30 at 13:30 Acetaminophen (Tylenol) 650 mg UNSCH PRN PO for headach, pain, temp > 101F; Start 04/30/17 at 13:30 Diphenhydramine HCl (Benadryl) 25 mg UNSCH PRN PO for hives/itching/anaphylaxis ; Start 04/30/17 at 13:30 Nitroglycerin (Nitrostat Sl) 0.4 mg UNSCH PRN SL CHEST PAIN; Start 04/30/17 at 13:30 Clonidine (Catapres) 0.1 mg UNSCH PRN PO for BP > 180/100 X 2 readings; Start 04/30/17 at 13:30 Epoetin Temo (Epogen Inj) 10,000 units UNSCH PRN IV PUSH WITH DIALYSIS; Start 04/30/17 at 13:30 Gelatin (Gelfoam 12 Mm/7 Mm Top) 1 foam UNSCH PRN TOP SEE LABEL COMMENTS; Start 04/30/17 at 13:30 Insulin Detemir (Levemir Inj) 10 units Q12HR SQ ; Start 05/01/17 at 21:00 Insulin Aspart (NovoLOG SUPPLEMENTAL SCALE) 1 ACHS SLIDING SCALE SQ ; Start at 12:00 Sodium Chloride (NS Flush) UNSCH PRN IV FLUSH SEE PROTOCOL; Start 05/01/17 at 12:15 Heparin Sodium (Porcine) (Heparin Inj) UNSCH PRN IV FLUSH SEE PROTOCOL; Start 05/01/17 at 12:15 Heparin Sodium (Porcine) (Heparin Inj) 2,200 units STK-MED ONCE SQ Last administered on 05/01/17t 12:03; Start 05/01/17 at 12:24; Stop 05/01/17 at 12 :25; Status DC A/P Problem List: (1) Acute hypoxemic respiratory failure ICD Code: J96.01 - Acute respiratory failure with hypoxia Status: Acute (2) Acute metabolic encephalopathy ICD Code: G93.41 - Metabolic encephalopathy (3) Pneumonia ICD Code: J18.9 - Pneumonia, unspecified organism Status: Acute (4) COPD with acute exacerbation ICD Code: J44.1 - Chronic obstructive pulmonary disease with (acute) exacerbation (5) Diabetes ICD Code: E11.9 - Type 2 diabetes mellitus without complications Status: Acute (6) Hypertension ICD Code: I10 - Hypertension Status: Acute (7) Acute on chronic kidney failure ICD Code: N17.9 - Acute kidney failure, unspecified; N18.9 - Chronic kidney disease, unspecified Assessment and Plan Acute metabolic encephalopathy - CT of the head negative for acute findings -Reoccurring. Most likely secondary to worsening renal failure with a combination of sedating medication. -Will hold sedating medication. -Patient scheduled for dialysis. Acute respiratory failure Pneumonia COPD with exacerbation Restrictive lung disease - Extubated 04/21. BiPAP use when necessary - DuoNeb every 4 hours scheduled and when necessary - Status post cefepime and azithromycin. Patient currently on Augmentin and Flagyl. Chronic A. fib - Rate controlled with metoprolol, Diltiazem, and digoxin. - Continue Eliquis Acute on chronic kidney disease - Monitor renal function closely. Nelson catheter. - Creatinine continues to worsen. -Patient schedule for a Vas-Cath today and will have dialysis. -[employer] Supervisor, Dr. Grewal on board and following. Severe sepsis Pneumonia - Blood sputum and urine culture, all negative to date -Patient was treated empirically for questionable aspiration pneumonia where she was put on cefepime. s/p discontinue cefepime and azithromycin. on Augmentin and Flagyl. Hypothyroidism Type 2 diabetes - Continue levothyroxine, sliding-scale insulin - SSI. Levemir Lower back pain -Secondary to muscle spasm. Patient was initially put on Flexeril but she is too sedated will need to discontinue Flexeril. Mild right-sided abdominal pain. -KUB suggests ileus versus small bowel obstruction. -GI consulted. -Per GI NPO, NGT to LIWS, Colon tube to gravity (red tube), Gastrografin enema and KUB in am Leukocytosis -thought to be due to steroid use. She continues to remain afebrile. Will need to continue to monitor closely. PROPH: - Bilateral lower extremity SCDs, Eliquis, Protonix Discharge Planning Renal function continued to worsen. Patient will need dialysis. Discussed management with patient's daughter and . Also discussed with patient's nurse Jonathan. Problem Qualifiers (1) Pneumonia: (2) Diabetes: Sandra Amin MD May 01, 2017 11:57
[2017-05-01] MEDS ORDERED: SODIUM CHLORIDE 0.9% FLUSH 10 ML FLUSH IV FLUSH PRN (12:15)
[2017-05-01] MEDS ORDERED: HEPARIN SODIUM - IV 2,000 UNITS/2 ML VIAL IV FLUSH PRN (12:15)
--- NOTE | 2017-05-01 12:15 | PD.RAD ---
Post Procedure Progress Note Pre Procedure Diagnosis: (1) Acute on chronic renal insufficiency Post Procedure Diagnosis: (1) Acute on chronic renal insufficiency Procedure Date: May 01, 2017 Supervising Radiologist: Brian Mcmanus Proceduralist/Assist: RT Piyush(R), RT Kodi(R) Anesthesia: Local Plan of Activity Patient to Unit: Nursing Unit Patient Condition: Fair See PACS Report for procedural detail/treatment Central Venous Access Device Procedure 1 Right Internal Jugular Hemodialysis Catheter Non-Tunneled Placement dual lumen Brian Mcmanus MD May 01, 2017 12:15
[2017-05-01] MEDS ORDERED: HEPARIN SODIUM - SQ 10,000 UNITS/ML VIAL SQ ONE (12:24)
--- NOTE | 2017-05-01 13:54 | RADRPT ---
EXAM DATE/TIME: 05/01/2017 11:45 [facility] COMPARISON: No previous studies available for comparison. INDICATIONS : Patient presents with acute renal failure in need of dailysis catheter placement for treatment. MEDICAL HISTORY : Hypertension Atrial fibrillation Diabetes type 2 insulin-requiring Hypothyroidism Hyperlipidemia Neuropathy diabetic SURGICAL HISTORY : Total thyroidectomy in 2010 secondary to thyroid cancer History of partial small bowel resection Cholecystectomy ENCOUNTER: Initial ACUITY: 1 week PAIN SCORE: Nonresponsive. LOCATION: N/A FLUORO TIME: 0.4 minutes IMAGE SERIES: 0 ACCESS: Right internal jugular vein MEDICATION(S): 1.) 2,200 units Heparin IV DEVICE(S): 1.) 14 [place] dual lumen 15 cm Schon catheter PROCEDURE : 1. Ultrasound guided venipuncture. 2. Fluoroscopic guidance. 3. Central line placement. The risks, benefits and alternatives to the procedure were explained and verbal and written consent w as obtained. The site was prepped in sterile fashion. Full sterile technique was used, including ca p, mask, sterile gloves and gown and a large sterile sheet. Hand hygiene and 2% chlorhexidine prep w as utilized per protocol for cutaneous antisepsis with appropriate dry time for site. Sterile gel an d sterile probe cover were utilized for ultrasound guidance. The skin and subcutaneous tissues were infiltrated with local anesthetic solution. A suitable site a terrell the vein was selected with ultrasound and fluoroscopic guidance. A small incision was made. Th e vein was accessed under direct ultrasound visualization using the micropuncture technique. The lynette ropuncture set was exchanged for a 0.035 wire. The tract was dilated. The catheter was advanced int o position under direct fluoroscopic visualization. The catheter was fixed in place with suture and a sterile dressing was applied. The patient tolerated the procedure well and there were no complications. CONCLUSION: Uncomplicated line placement as above. Brian Mcmanus MD on May 01, 2017 at 13:52 Board Certified Radiologist. This report was verified electronically.
[2017-05-01] MEDS ORDERED: SODIUM CHLORID 0.9% 500 ML INJ 500 ML IV ONE (14:00)
--- NOTE | 2017-05-01 14:09 | HHI.NPPN ---
Subjective History of Present Illness Patient is a 82-year-old with sepsis, COPD, intubation, diabetes, acute renal failure and chronic kidney disease. Additional Remarks Patient is confused, and now with nasal cannula, abdominal distention Objective Data Data Vital Signs Date Time Temp Pulse Resp B/P (MAP) Pulse Ox O2 Delivery O2 Flow Rate FiO2 05/01/17 13:42 98.7 83 18 95/46 (62) 100 05/01/17 13:19 68 05/01/17 12:45 97.8 74 20 92/44 (60) 99 05/01/17 12:45 98.7 80 20 86/41 (56) 100 05/01/17 11:25 74 05/01/17 09:01 100 Nasal Cannula 3.00 05/01/17 09:01 97.8 75 18 129/55 (79) 100 05/01/17 07:01 74 05/01/17 05:51 77 05/01/17 05:00 79 05/01/17 04:00 98.1 75 18 120/57 (78) 98 05/01/17 04:00 75 05/01/17 03:00 78 05/01/17 02:00 77 05/01/17 01:00 81 05/01/17 00:00 86 05/01/17 00:00 98.1 86 18 112/94 (100) 96 04/30/17 23:00 81 04/30/17 22:00 80 04/30/17 21:00 78 04/30/17 20:00 98.4 83 18 140/72 (94) 97 04/30/17 20:00 83 04/30/17 20:00 Nasal Cannula 2.00 04/30/17 18:00 74 04/30/17 17:00 70 04/30/17 16:00 76 04/30/17 15:34 97.3 58 18 134/49 (77) 99 04/30/17 15:00 58 -: 05/01/17 0440 05/01/17 0440 Physical Exam General Appearance: No Acute Distress, Comfortable, Obese Neck Neck Exam: Neck Supple Pulmonary Resp Exam: Decreased Bases Cardiology CV Exam: Arrhythmia Gastrointestinal/Abdomen GI Exam: Bowel Sounds Hypoactive Extremeties Extremities Exam: Trace Edema Neurologic Neuro Exam: Alert, Awake Psychiatric Psych Exam: Appropriate Responses Assessment/Plan Problem List: (1) Acute on chronic renal insufficiency ICD Codes: N28.9 - Disorder of kidney and ureter, unspecified; N18.9 - Chronic kidney disease, unspecified Status: Acute Plan: Patient is in acute renal failure and had chronic kidney disease non oliguric , urine out put is adequate. Her creatinine higher Vas-Cath in place Hemodialysis this afternoon She has colon distention cecum was 13 cm Paralytic ileus 1417 seen at dialysis tolerating it well 2 L UF (2) Hypertension ICD Codes: I10 - Hypertension Status: Acute Plan: Blood pressure was low (3) Diabetes ICD Codes: E11.9 - Type 2 diabetes mellitus without complications Status: Acute Plan: Continue to monitor (4) COPD with acute exacerbation ICD Codes: J44.1 - Chronic obstructive pulmonary disease with (acute) exacerbation Plan: extubated Problem Qualifiers (1) Diabetes: Tonja Grewal MD May 01, 2017 14:09
[2017-05-01] MEDS: EPOETIN ALFA 10,000 UNITS/ML VIAL IV PUSH PRN (14:36)
[2017-05-01] MEDS: HEPARIN SODIUM - IV 10,000 UNITS/10 ML VIAL PRN (14:37)
[2017-05-01] MEDS: GENTAMICIN SULFATE (DIALYSIS USE ONLY) 20 MG/2 ML VIAL OTHER PRN (14:39)
[2017-05-01] MEDS: CHLORHEXIDINE 0.12% (ORAL KIT) 15 ML CUP MT SCH (20:00)
[2017-05-01] MEDS: ATORVASTATIN 20 MG TAB PO SCH (21:55)
[2017-05-02] VITALS: BP 115/54; PULSE 88; RESP 16; TEMP 97.7; O2SAT 100
[2017-05-02 04:00] VITALS: BP 106/51; PULSE 76; RESP 14; TEMP 98; O2SAT 98
[2017-05-02] MEDS: CHLORHEXIDINE GLUCONATE 2 % 1 PACK (2 CLOTHS) TOP SCH (04:00)
[2017-05-02] MEDS: LEVOTHYROXINE SODIUM 125 MCG TAB PO SCH (05:17)
[2017-05-02] MEDS: metroNIDAZOLE 500 MG TAB PO SCH ×3 (05:17→22:09)
--- NOTE | 2017-05-02 06:47 | RADRPT ---
EXAM DATE/TIME: 05/02/2017 06:06 CORRECTION Corrected on: May 02, 2017; Updated report time [facility] COMPARISON: ABDOMEN KUB ONLY, April 30, 2017, 13:26. INDICATIONS : Evaluate for colonic ileus vs obstruction MEDICAL HISTORY : dialysis SURGICAL HISTORY : unobtainable ENCOUNTER: Subsequent ACUITY: 4 - 6 days PAIN SCORE: Non-responsive. LOCATION: Bilateral abdomen FINDINGS: There appears to be slightly less distention of the colon than on the previous exam. A nasogastric tu be is present coiled in the stomach. No dilated small bowel loops are seen. CONCLUSION: Slight interval decompression of the colon Duncan Delgado MD on May 02, 2017 at 6:44 Board Certified Radiologist. This report was verified electronically.
[2017-05-02] MEDS: SODIUM CHLORIDE 0.9% FLUSH 10 ML FLUSH IV FLUSH SCH ×2 (07:41→21:00)
[2017-05-02 08:00] VITALS: BP 115/59; PULSE 88; RESP 18; TEMP 97.9; O2SAT 100
[2017-05-02] MEDS: CHLORHEXIDINE 0.12% (ORAL KIT) 15 ML CUP MT SCH ×2 (08:00→20:00)
[2017-05-02] MEDS: INSULIN ASPART SUPPLEMENTAL SCALE SQ SCH ×4 (08:00→21:00)
[2017-05-02 08:38] LABS: HEMATOCRIT 27.5 % (35.0-46.0); MEAN CELL VOLUME 95.6 FL (80.0-100.0); MEAN CORPUSCULAR HEMOGLOBIN 29.7 PG (27.0-34.0); PLATELET COUNT 202 TH/MM3 (150-450); RED BLOOD COUNT 2.88 MIL/MM3 (4.00-5.30); RED CELL DISTRIBUTION WIDTH 15.2 % (11.6-17.2); REVIEW FLAG FINAL; WHITE BLOOD COUNT 14.7 TH/MM3 (4.0-11.0)
[2017-05-02 09:00] LABS: BICARBONATE 22.8 MEQ/L (21.0-32.0); POTASSIUM 4.8 MEQ/L (3.5-5.1)
[2017-05-02] MEDS: HEPARIN SODIUM - IV 10,000 UNITS/10 ML VIAL PRN (11:00)
[2017-05-02] MEDS: SODIUM CHLOR 0.9% 1000 ML INJ 1,000 ML OTHER PRN (11:00)
[2017-05-02] MEDS: GENTAMICIN SULFATE (DIALYSIS USE ONLY) 20 MG/2 ML VIAL OTHER PRN (11:00)
[2017-05-02] MEDS: EPOETIN ALFA 10,000 UNITS/ML VIAL IV PUSH PRN (11:00)
--- NOTE | 2017-05-02 11:21 | HHI.NPPN ---
Subjective History of Present Illness Patient is a 82-year-old with sepsis, COPD, intubation, diabetes, acute renal failure and chronic kidney disease. Additional Remarks Patient is confused, and now with nasal cannula, abdominal distention Objective Data Data Vital Signs Date Time Temp Pulse Resp B/P (MAP) Pulse Ox O2 Delivery O2 Flow Rate FiO2 05/02/17 08:00 97.9 88 18 115/59 (77) 100 05/02/17 04:00 98.0 76 14 106/51 (69) 98 05/02/17 04:00 Nasal Cannula 2.00 05/02/17 00:00 97.7 88 16 115/54 (74) 100 05/01/17 23:00 Nasal Cannula 2.00 05/01/17 23:00 83 05/01/17 22:30 97.7 90 14 123/56 (78) 100 05/01/17 20:00 119 16 103/42 (62) 97 05/01/17 20:00 99 Nasal Cannula 2.00 05/01/17 18:18 76 05/01/17 17:47 84 05/01/17 14:16 83 05/01/17 13:42 98.7 83 18 95/46 (62) 100 05/01/17 13:19 68 05/01/17 12:45 97.8 74 20 92/44 (60) 99 05/01/17 12:45 98.7 80 20 86/41 (56) 100 05/01/17 11:25 74 -: 05/02/17 0826 05/02/17 0826 Physical Exam General Appearance: No Acute Distress, Comfortable, Obese Neck Neck Exam: Neck Supple Pulmonary Resp Exam: Decreased Bases Cardiology CV Exam: Arrhythmia Gastrointestinal/Abdomen GI Exam: Bowel Sounds Hypoactive Extremeties Extremities Exam: Trace Edema Neurologic Neuro Exam: Alert, Awake Psychiatric Psych Exam: Appropriate Responses Assessment/Plan Problem List: (1) Acute on chronic renal insufficiency ICD Codes: N28.9 - Disorder of kidney and ureter, unspecified; N18.9 - Chronic kidney disease, unspecified Status: Acute Plan: Patient is in acute renal failure and had chronic kidney disease non oliguric , Her creatinine higher Vas-Cath in place Hemodialysis 1117 seen at dialysis tolerating it well 1.7 L UF (2) Hypertension ICD Codes: I10 - Hypertension Status: Acute Plan: Blood pressure was low (3) Diabetes ICD Codes: E11.9 - Type 2 diabetes mellitus without complications Status: Acute Plan: Continue to monitor (4) COPD with acute exacerbation ICD Codes: J44.1 - Chronic obstructive pulmonary disease with (acute) exacerbation Plan: extubated Problem Qualifiers (1) Diabetes: Tonja Grewal MD May 02, 2017 11:21
[2017-05-02] MEDS: DILTIAZEM-CD 180 MG CAP ER PO SCH (12:16)
[2017-05-02] MEDS: PANTOPRAZOLE SOD 20 MG DELAYED RELEASE TAB PO SCH ×2 (12:16→22:08)
[2017-05-02] MEDS: METOPROLOL TARTRATE 25 MG TAB PO SCH ×2 (12:17→22:08)
[2017-05-02] MEDS: CHOLECALCIFEROL (VIT D3) 400 UNIT TAB PO SCH ×2 (12:17→22:08)
[2017-05-02] MEDS: APIXABAN 2.5 MG TABLET PO SCH ×2 (12:17→21:00)
[2017-05-02] MEDS: DIGOXIN 0.125 MG TAB PO SCH (12:17)
[2017-05-02] MEDS: MULTIVITAMINS/MINERALS THERAPEUTIC TAB PO SCH ×2 (12:17→22:08)
[2017-05-02] MEDS: CALCITRIOL 0.25 MCG CAP PO SCH (12:17)
[2017-05-02] MEDS: INSULIN DETEMIR 100 UNITS/ML VIAL SQ SCH ×2 (12:18→21:00)
[2017-05-02] MEDS: AMOXICILLIN/CLAVULANATE K 875 MG TAB PO SCH ×2 (13:18→22:08)
--- NOTE | 2017-05-02 15:35 | RADRPT ---
EXAM DATE/TIME: 05/02/2017 08:02 [facility] COMPARISON: No previous studies available for comparison. INDICATIONS : Colonic ileus vs. obstruction, dilated cecum FLUORO TIME: 2.6 minutes IMAGE COUNT: 12 CONTRAST: 1. Gastroview MEDICAL HISTORY : diabetes, a-fib SURGICAL HISTORY : Cholecystectomy. colon resection ENCOUNTER: Initial ACUITY: 2 weeks PAIN SCORE: Non-responsive. LOCATION: Bilateral abdomen FINDINGS: D2 preliminary operations officer trust department views demonstrate a nasogastric tube in place. There is dilatation of the transv erse and ascending colon. The cecum measures up to approximately 14 cm. Under fluoroscopic guidance a Gastrografin enema was performed with difficulty. The patient is unable to move or roll and the patient could not hold the Gastrografin in despite repeated attempts and mul tiple episodes of rectal leakage. The cecum and ascending colon could not be opacified. There was a o derate amount of stool throughout the colon. Images were obscured by Gastrografin on the table and pa tient. Multiple diverticuli are present greatest in the sigmoid colon. No definite fixed filling defe ct or stricture was identified. CONCLUSION: 1. Limited suboptimal exam. The cecum and right colon could not be opacified despite repeated attempt s. 2. Residual stool and mild to moderate diverticulosis. Guevara Crowell MD on May 02, 2017 at 15:29 Board Certified Radiologist. This report was verified electronically.
[2017-05-02] MEDS ORDERED: DIATRIZOATE MEGLUM/DIATRIZOATE SOD 120 ML BTL (for RAD DIAG) RECTAL ONE (15:42)
--- NOTE | 2017-05-02 15:59 | HHI.PR ---
Subjective Remarks Follow-up encephalopathy and ileus. Just returned from hemodialysis. She is awake oriented to person. Complains of abdominal pain. She is stooling. Discussed with RN, will discontinue Nelson catheter. Rectal chill to be inserted. Discussed with GI MINK SLICER Objective Vitals Vital Signs Date Time Temp Pulse Resp B/P (MAP) Pulse Ox O2 Delivery O2 Flow Rate FiO2 05/02/17 09:42 Nasal Cannula 05/02/17 08:00 97.9 88 18 115/59 (77) 100 05/02/17 04:00 98.0 76 14 106/51 (69) 98 05/02/17 04:00 Nasal Cannula 2.00 05/02/17 00:00 97.7 88 16 115/54 (74) 100 05/01/17 23:00 Nasal Cannula 2.00 05/01/17 23:00 83 05/01/17 22:30 97.7 90 14 123/56 (78) 100 05/01/17 20:00 119 16 103/42 (62) 97 05/01/17 20:00 99 Nasal Cannula 2.00 05/01/17 18:18 76 05/01/17 17:47 84 I/O 05/01/17 05/01/17 05/01/17 05/02/17 05/02/17 05/02/17 07:00 15:00 23:00 07:00 15:00 23:00 Intake Total 1080 ml Output Total 500 ml 2250 ml 1700 ml Balance 580 ml -2250 ml -1700 ml Intake Oral 240 ml IV Total 840 ml Output Urine Total 500 ml 250 ml Hemodialysis 2000 ml 1700 ml # Bowel Movements 0 0 Result Diagram: 05/02/17 0826 05/02/17 0826 Imaging Last Impressions Abdomen X-Ray 05/02/17 0600 Signed Impressions: Service Date/Time: Tuesday, May 02, 2017 06:06 - CONCLUSION: Slight interval decompression of the colon Duncan Delgado MD Enema w/Water Soluble 05/02/17 0000 Signed Impressions: Service Date/Time: Tuesday, May 02, 2017 08:02 - CONCLUSION: 1. Limited suboptimal exam. The cecum and right colon could not be opacified despite repeated attempts. 2. Residual stool and mild to moderate diverticulosis. Guevara Crowell MD Catheter Placement X-Ray 05/01/17 0000 Signed Impressions: Service Date/Time: Monday, May 01, 2017 11:45 - CONCLUSION: Uncomplicated line placement as above. Brian Mcmanus MD Chest X-Ray 04/23/17 0600 Signed Impressions: Service Date/Time: Sunday, April 23, 2017 04:17 - CONCLUSION: 1. Suboptimal single view study with mild motion artifact. 2. No significant change in the bibasilar opacities. Guevara Crowell MD Renal Ultrasound 04/20/17 0000 Signed Impressions: Service Date/Time: April 15:07 - CONCLUSION: 1. There is no hydronephrosis. 2. Stable 8mm nonobstructing left renal stone. Duncan Avery MD Head CT 04/19/17 0702 Signed Impressions: Service Date/Time: Wednesday, April 19, 2017 07:29 - CONCLUSION: 1. Cerebral white matter hypodensity characteristic of chronic microvascular ischemic disease. 2. No evidence of acute infarct, hemorrhage, mass or edema. Renato Coughlin MD Objective Remarks GENERAL: Morbid obese in no acute distress. SKIN: No lesions or rash CARDIOVASCULAR: Regular rate and rhythm without murmurs, gallops, or rubs. RESPIRATORY: Breath sounds equal bilaterally. No accessory muscle use. GASTROINTESTINAL: Abdomen soft, obese BACK: Paraspinal muscle spasm located in the mid to lower back. NEURO: Alert and oriented to person. Generalized weakness. Follow simple commands Procedures Vas-Cath A/P Problem List: (1) Acute hypoxemic respiratory failure ICD Code: J96.01 - Acute respiratory failure with hypoxia Status: Acute (2) Acute metabolic encephalopathy ICD Code: G93.41 - Metabolic encephalopathy (3) Pneumonia ICD Code: J18.9 - Pneumonia, unspecified organism Status: Acute (4) COPD with acute exacerbation ICD Code: J44.1 - Chronic obstructive pulmonary disease with (acute) exacerbation (5) Diabetes ICD Code: E11.9 - Type 2 diabetes mellitus without complications Status: Acute (6) Hypertension ICD Code: I10 - Hypertension Status: Acute (7) Acute on chronic kidney failure ICD Code: N17.9 - Acute kidney failure, unspecified; N18.9 - Chronic kidney disease, unspecified Assessment and Plan Acute metabolic encephalopathy - CT of the head negative for acute findings - Reoccurring. Most likely secondary to worsening renal failure with a combination of sedating medication. - Will hold sedating medication. - Patient scheduled for dialysis. - Obtain EEG. Speech therapy for cognitive evaluation Acute respiratory failure Pneumonia COPD with exacerbation Restrictive lung disease - Extubated 04/21. BiPAP use when necessary - DuoNeb every 4 hours scheduled and when necessary - Status post cefepime and azithromycin. Patient currently on Augmentin and Flagyl. Stop dates ordered Chronic A. fib - Rate controlled with metoprolol, Diltiazem, and digoxin. - Continue Eliquis Acute on chronic kidney disease -Hemodialysis per nephrology Severe sepsis Pneumonia - Blood sputum and urine culture, all negative to date -Patient was treated empirically for questionable aspiration pneumonia where she was put on cefepime. S/p discontinue cefepime and azithromycin. On Augmentin and Flagyl. Hypothyroidism Type 2 diabetes - Continue levothyroxine, sliding-scale insulin - SSI. Levemir Lower back pain -Secondary to muscle spasm. Patient was initially put on Flexeril but she is too sedated discontinued Flexeril. Ileus -Per GI NPO, NGT to LIWS, Colon tube to gravity (red tube), -ct IVF Leukocytosis -thought to be due to steroid use. She continues to remain afebrile. Will need to continue to monitor closely. PROPH: - Bilateral lower extremity SCDs, Eliquis, Protonix Problem Qualifiers (1) Pneumonia: (2) Diabetes: Reese Steinberg MD May 02, 2017 15:59
[2017-05-02 16:00] VITALS: BP 138/63; PULSE 73; RESP 18; TEMP 98.2; O2SAT 100
--- NOTE | 2017-05-02 18:10 | HHI.GIFU ---
GI Follow-up Note Consult Follow-up Subjective: Patient laying in bed comfortably,sleepy , arousable.Had dialysis / Also had Gastrografin enema, right colon could not be opacified , abdominal X ray showed improvement in colonic distension,She had stool in rectal bag, ngt to suction.Colorectal surgery appreciated , Objective: PHYSICAL EXAMINATION: Vitals signs stable No fever Vital Signs Date Time Temp Pulse Resp B/P (MAP) Pulse Ox O2 Delivery O2 Flow Rate FiO2 05/02/17 16:00 98.2 73 18 138/63 (88) 100 HEENT: Pupils round and reactive to light; normocephalic; atraumatic; no jaundice. Throat is clear. NECK: Neck is supple, no JVD, no lymphadenopathy. CHEST: Chest is clear to auscultation and percussion. CARDIAC: Regular rate and rhythm with no murmur gallop or rubs. ABDOMEN: Soft, distended, right lower quadrant tenderness; no hepatosplenomegaly; bowel sounds are present in all four quadrants. EXTREMITIES: No clubbing, cyanosis, edema. SKIN: Normal; no rash; no jaundice. 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 JOINTER OFFBEARER: arousable, sleepy Available Data (labs, X- Rays, Procedues) : Laboratory Tests Test 05/01/17 04:40 05/01/17 13:05 05/02/17 08:26 White Blood Count 19.9 TH/MM3 14.7 TH/MM3 Red Blood Count 2.69 MIL/MM3 2.88 MIL/MM3 Hemoglobin 7.9 GM/DL 8.5 GM/DL Hematocrit 25.5 % 27.5 % Mean Corpuscular Volume 94.8 FL 95.6 FL Mean Corpuscular Hemoglobin 29.2 PG 29.7 PG Mean Corpuscular Hemoglobin Concent 30.8 % 31.0 % Red Cell Distribution Width 15.0 % 15.2 % Platelet Count 225 TH/MM3 202 TH/MM3 Mean Platelet Volume 8.0 FL 7.8 FL Neutrophils (%) (Auto) 89.2 % Lymphocytes (%) (Auto) 1.9 % Monocytes (%) (Auto) 8.6 % Eosinophils (%) (Auto) 0.0 % Basophils (%) (Auto) 0.3 % Neutrophils # (Auto) 17.8 TH/MM3 Lymphocytes # (Auto) 0.4 TH/MM3 Monocytes # (Auto) 1.7 TH/MM3 Eosinophils # (Auto) 0.0 TH/MM3 Basophils # (Auto) 0.1 TH/MM3 CBC Comment AUTO DIFF Differential Total Cells Counted 100 Neutrophils % (Manual) 88 % Band Neutrophils % 5 % Lymphocytes % 2 % Monocytes % 3 % Neutrophils # (Manual) 18.9 TH/MM3 Myelocytes 2 % Differential Comment FINAL DIFF MANUAL Platelet Estimate NORMAL Platelet Morphology Comment NORMAL Prothrombin Time 10.9 SEC Prothromb Time International Ratio 1.0 RATIO Blood Urea Nitrogen 106 MG/DL 82 MG/DL Creatinine 5.30 MG/DL 4.90 MG/DL Random Glucose 297 MG/DL 131 MG/DL Calcium Level 8.2 MG/DL 8.1 MG/DL Sodium Level 136 MEQ/L 137 MEQ/L Potassium Level 5.2 MEQ/L 4.8 MEQ/L Chloride Level 106 MEQ/L 107 MEQ/L Carbon Dioxide Level 20.1 MEQ/L 22.8 MEQ/L Anion Gap 10 MEQ/L 7 MEQ/L Estimat Glomerular Filtration Rate 9 ML/MIN 10 ML/MIN Hepatitis A IgM Antibody NEGATIVE Hepatitis B Surface Antigen NEGATIVE Hepatitis B Core IgM Antibody NEGATIVE Hepatitis C Antibody NEGATIVE Digoxin Level 1.8 NG/ML ASSESSMENT/PLAN: colonic ileus-clinically better sepsis -suspected aspiration pneumonia-improving obesity renal insufficiency started dialysis Recommendations : continue NGT, rectal tube ct abdomen/pelvis in am colorectal surgery fu c diff consider colonoscopy if not better and once clinically more stable It was a pleasure seeing Feli Sales. Thank you for this consult. Entered by: Delfina Butts MD May 02, 2017 18:10
[2017-05-02] MEDS ORDERED: DIATRIZOATE MEGLUM/DIATRIZOATE SOD 9 ML CUP PO ONE (18:20)
[2017-05-02 19:43] VITALS: PULSE 90
[2017-05-02 20:00] VITALS: BP 147/62; PULSE 92; RESP 18; TEMP 98.6; O2SAT 100
--- NOTE | 2017-05-02 21:27 | RADRPT ---
EXAM DATE/TIME: 05/02/2017 19:58 [facility] COMPARISON: CT ABDOMEN & PELVIS W CONTRAST, January 02, 2013, 1:37. ABDOMEN KUB ONLY, April 30, 2017, 13:26. CT ABDOMEN & PELVIS W/O CONTRAST, September 06, 2016, 4:41. INDICATIONS : Abdominal pain. Evaluate ileus. ORAL CONTRAST: Prescribed oral contrast ingested. RADIATION DOSE: 37.93 CTDIvol (mGy) ; Patient body habitus MEDICAL HISTORY : Cardiovascular disease. Hypertension. Diabetes mellitus type 2. SURGICAL HISTORY : None. ENCOUNTER: Initial ACUITY: 1 day PAIN SCALE: 5/10 LOCATION: abdomen TECHNIQUE: Volumetric scanning of the abdomen and pelvis was performed. Using automated exposure control and ad justment of the mA and/or kV according to patient size, radiation dose was kept as low as reasonably achievable to obtain optimal diagnostic quality images. DICOM format image data is available electro nically for review and comparison. FINDINGS: LOWER LUNGS: There small bilateral pleural effusions with mild consolidation in the posterior lung bases. LIVER: Homogeneous density without lesion. There is no dilation of the biliary tree. No calcified gallston es. SPLEEN: Normal size without lesion. PANCREAS: Within normal limits. KIDNEYS: Normal in size and shape. There is no mass or hydronephrosis. Small calcification is again noted in the left kidney. ADRENAL GLANDS: Small bilateral adrenal masses are again noted without significant change. VASCULAR: There is no aortic aneurysm. BOWEL/MESENTERY: Contrast is noted segmentally in the colon from the Gastrografin enema performed earlier on this date . There is a rectal catheter in place. There is no free air or fluid. There is a normal appendix. The re is no focal wall thickening or inflammatory change. There is mild dilatation of the cecum. There a re multiple loops of nondilated air-containing small bowel with small air-fluid levels. ABDOMINAL WALL: Withi the heart size is moderately enlarged. n normal limits. RETROPERITONEUM: There is no lymphadenopathy. BLADDER: No wall thickening or mass. REPRODUCTIVE: Within normal limits. INGUINAL: There is no lymphadenopathy or hernia. MUSCULOSKELETAL: Within normal limits for patient age. CONCLUSION: 1. Nonspecific bowel gas pattern remains with contrast noted in the colon from the recent Gastrografi n enema. The cecum remains distended. A rectal catheter is present. 2. No free air or fluid. 3. Small pleural effusions with mild consolidation in the lung bases. 4. Stable small adrenal masses likely representing adenomas. 5. Small nonobstructing left renal calculus. Guevara Crowell MD on May 02, 2017 at 21:20 Board Certified Radiologist. This report was verified electronically.
[2017-05-02] MEDS: ATORVASTATIN 20 MG TAB PO SCH (22:09)
--- NOTE | 2017-05-02 22:11 | MG ---
cc: ISREAL ARAIZA MD Lab No: Date: 05/02/17 Age: 82 Sex: F Race: DATE OF [address] Steinberg MEDICAL HISTORY Acute renal failure, lethargy, thyroidectomy, hard of hearing, anticoagulation, atrial fibrillation, hypertension, asthma, sleep apnea/BiPap, cholecystectomy, gout, diabetes, alcohol and marijuana use. MEDICATIONS Levemir Heparin Gentamycin Epogen Lopressor Augmentin Cardizem Theragran Protonix Lipitor DESCRIPTION This is a follow up EEG with generalized background slowing with polymorphic delta and theta activity. There is some movement artifact during the recording. During the recording, hyperventilation was not done. Photic stimulation did not elicit a driving response. There were no electrographic seizures or epileptiform discharges noted. INTERPRETATION This is an abnormal EEG with generalized slowing that may indicate an encephalopathic pattern. Absence of electrographic seizures or epileptiform discharges does not exclude diagnosis of epilepsy. MD KRISTI Carrizales/ /9:58 PM /10:05 PM [facility] CENTERSharon
--- NOTE | 2017-05-02 22:51 | HHI.PR ---
Subjective Remarks C/R Surg afebrile,VSS not very talkative lg rectal output with rectal tube insertion NGT min Objective - Vital Signs Date Time Temp Pulse Resp B/P (MAP) Pulse Ox O2 Delivery O2 Flow Rate FiO2 05/02/17 20:00 98.6 92 18 147/62 (90) 100 05/02/17 18:46 Nasal Cannula 2.00 93 Result Diagram: 05/02/1782505/02/17825 Objective Remarks PE alert, min response to verbal commands Abd - lg, softer, still some tympany A/P Assessment and Plan Imp: DC NGT No obstr on Gastrograffin enema try OOB cont dialysis Wilner Tam MD May 02, 2017 22:51
[2017-05-03] VITALS (9 sets, daily range): BP systolic 114–129; BP diastolic 56–67; PULSE 66–90; RESP 18–20; TEMP 97.6–99; O2SAT 96–100
[2017-05-03] MEDS: CHLORHEXIDINE GLUCONATE 2 % 1 PACK (2 CLOTHS) TOP SCH (03:09)
[2017-05-03] MEDS: LEVOTHYROXINE SODIUM 125 MCG TAB PO SCH (05:03)
[2017-05-03] MEDS: metroNIDAZOLE 500 MG TAB PO SCH ×3 (05:03→21:57)
[2017-05-03] MEDS: INSULIN ASPART SUPPLEMENTAL SCALE SQ SCH ×4 (08:00→21:59)
[2017-05-03] MEDS: CHLORHEXIDINE 0.12% (ORAL KIT) 15 ML CUP MT SCH ×2 (08:00→20:00)
[2017-05-03 08:17] LABS: AUTOMATED NEUTROPHIL # 13.9 TH/MM3 (1.8-7.7); BASOPHIL % 0.1 % (0.0-2.0); EOSINOPHIL # 0.1 TH/MM3 (0-0.4); EOSINOPHIL % 0.4 % (0.0-4.0); HEMATOCRIT 25.2 % (35.0-46.0); HEMO FLAGS DIFF FINAL; LYMPH % 3.1 % (9.0-44.0); LYMPHOCYTE # 0.5 TH/MM3 (1.0-4.8); MEAN CORPUSCULAR HEMOGLOBIN 29.8 PG (27.0-34.0); MEAN CORPUSCULAR HGB CONC 31.3 % (32.0-36.0); NEUT % 87.4 % (16.0-70.0); PLATELET COUNT 196 TH/MM3 (150-450); RED BLOOD COUNT 2.65 MIL/MM3 (4.00-5.30); RED CELL DISTRIBUTION WIDTH 14.9 % (11.6-17.2); WHITE BLOOD COUNT 15.9 TH/MM3 (4.0-11.0)
[2017-05-03 08:36] LABS: BICARBONATE 22.9 MEQ/L (21.0-32.0); MAGNESIUM 2.2 MG/DL (1.5-2.5); POTASSIUM 4.2 MEQ/L (3.5-5.1)
[2017-05-03] MEDS: MULTIVITAMINS/MINERALS THERAPEUTIC TAB PO SCH ×2 (08:48→21:57)
[2017-05-03] MEDS: CHOLECALCIFEROL (VIT D3) 400 UNIT TAB PO SCH ×2 (08:48→21:57)
[2017-05-03] MEDS: PANTOPRAZOLE SOD 20 MG DELAYED RELEASE TAB PO SCH ×2 (08:48→21:58)
[2017-05-03] MEDS: CALCITRIOL 0.25 MCG CAP PO SCH (08:48)
[2017-05-03] MEDS: METOPROLOL TARTRATE 25 MG TAB PO SCH ×2 (08:49→21:58)
[2017-05-03] MEDS: APIXABAN 2.5 MG TABLET PO SCH ×2 (08:49→21:58)
[2017-05-03] MEDS: DILTIAZEM-CD 180 MG CAP ER PO SCH (08:49)
[2017-05-03] MEDS: SODIUM CHLORIDE 0.9% FLUSH 10 ML FLUSH IV FLUSH SCH ×2 (08:49→22:02)
[2017-05-03] MEDS: INSULIN DETEMIR 100 UNITS/ML VIAL SQ SCH ×2 (08:49→22:00)
[2017-05-03] MEDS: DIGOXIN 0.125 MG TAB PO SCH (08:49)
[2017-05-03] MEDS: AMOXICILLIN/CLAVULANATE K 875 MG TAB PO SCH ×2 (08:49→21:58)
[2017-05-03] MEDS: SODIUM CHLOR 0.9% 1000 ML INJ 1,000 ML IV SCH (08:56)
--- NOTE | 2017-05-03 13:44 | HHI.NPPN ---
Subjective History of Present Illness Patient is a 82-year-old with sepsis, COPD, intubation, diabetes, acute renal failure and chronic kidney disease. Additional Remarks Patient is confused, and now with nasal cannula Objective Data Data Vital Signs Date Time Temp Pulse Resp B/P (MAP) Pulse Ox O2 Delivery O2 Flow Rate FiO2 05/03/17 12:00 98.6 69 18 129/63 (85) 100 05/03/17 09:49 Nasal Cannula 2.00 93 05/03/17 08:00 98.8 81 20 117/60 (79) 99 05/03/17 04:00 97.6 76 18 114/56 (75) 96 05/03/17 00:00 98.4 75 18 127/61 (83) 100 05/02/17 22:10 Nasal Cannula 2.00 05/02/17 20:00 98.6 92 18 147/62 (90) 100 05/02/17 19:43 90 05/02/17 18:46 Nasal Cannula 2.00 93 05/02/17 16:00 98.2 73 18 138/63 (88) 100 -: 05/03/17 0722 05/03/17 0723 Physical Exam General Appearance: No Acute Distress, Comfortable, Obese Neck Neck Exam: Neck Supple Pulmonary Resp Exam: Decreased Bases Cardiology CV Exam: Arrhythmia Gastrointestinal/Abdomen GI Exam: Bowel Sounds Hypoactive Extremeties Extremities Exam: Trace Edema Neurologic Neuro Exam: Alert, Awake Psychiatric Psych Exam: Appropriate Responses Assessment/Plan Problem List: (1) Acute on chronic renal insufficiency ICD Codes: N28.9 - Disorder of kidney and ureter, unspecified; N18.9 - Chronic kidney disease, unspecified Status: Acute Plan: Patient is in acute renal failure and had chronic kidney disease non oliguric , Her creatinine higher Vas-Cath in place Hemodialysis Next hemodialysis is tomorrow . GI and colorectal surgery following the patient (2) Hypertension ICD Codes: I10 - Hypertension Status: Acute Plan: Blood pressure was low (3) Diabetes ICD Codes: E11.9 - Type 2 diabetes mellitus without complications Status: Acute Plan: Continue to monitor (4) COPD with acute exacerbation ICD Codes: J44.1 - Chronic obstructive pulmonary disease with (acute) exacerbation Plan: extubated Problem Qualifiers (1) Diabetes: Tonja Grewal MD May 03, 2017 13:44
--- NOTE | 2017-05-03 13:59 | HHI.PR ---
Subjective Remarks Follow-up ileus. Patient denies nausea and vomiting. NGT has been removed. She continues to to have loose stools. Seen with family. Discussed with RN Objective Vitals Vital Signs Date Time Temp Pulse Resp B/P (MAP) Pulse Ox O2 Delivery O2 Flow Rate FiO2 05/03/17 12:00 98.6 69 18 129/63 (85) 100 05/03/17 09:49 Nasal Cannula 2.00 93 05/03/17 08:00 98.8 81 20 117/60 (79) 99 05/03/17 04:00 97.6 76 18 114/56 (75) 96 05/03/17 00:00 98.4 75 18 127/61 (83) 100 05/02/17 22:10 Nasal Cannula 2.00 05/02/17 20:00 98.6 92 18 147/62 (90) 100 05/02/17 19:43 90 05/02/17 18:46 Nasal Cannula 2.00 93 05/02/17 16:00 98.2 73 18 138/63 (88) 100 I/O 05/02/17 05/02/17 05/02/17 05/03/17 05/03/17 05/03/17 07:00 15:00 23:00 07:00 15:00 23:00 Intake Total 0 ml Output Total 1700 ml 200 ml Balance -1700 ml -200 ml Intake Oral 0 ml Output Urine Total 200 ml Hemodialysis 1700 ml Bladder Scan Volume Amount 260 ml 460 ml 460 ml # Bowel Movements 4 Result Diagram: 05/03/17 0722 05/03/17 0723 Imaging Last Impressions Abdomen X-Ray 05/02/17 0600 Signed Impressions: Service Date/Time: Tuesday, May 02, 2017 06:06 - CONCLUSION: Slight interval decompression of the colon Duncan Delgado MD Enema w/Water Soluble 05/02/17 0000 Signed Impressions: Service Date/Time: Tuesday, May 02, 2017 08:02 - CONCLUSION: 1. Limited suboptimal exam. The cecum and right colon could not be opacified despite repeated attempts. 2. Residual stool and mild to moderate diverticulosis. Guevara Crowell MD Abdomen/Pelvis CT 05/02/17 0000 Signed Impressions: Service Date/Time: Tuesday, May 02, 2017 19:58 - CONCLUSION: 1. Nonspecific bowel gas pattern remains with contrast noted in the colon from the recent Gastrografin enema. The cecum remains distended. A rectal catheter is present. 2. No free air or fluid. 3. Small pleural effusions with mild consolidation in the lung bases. 4. Stable small adrenal masses likely representing adenomas. 5. Small nonobstructing left renal calculus. Guevara Crowell MD Catheter Placement X-Ray 05/01/17 0000 Signed Impressions: Service Date/Time: Monday, May 01, 2017 11:45 - CONCLUSION: Uncomplicated line placement as above. Brian Mcmanus MD Chest X-Ray 04/23/17 0600 Signed Impressions: Service Date/Time: Sunday, April 23, 2017 04:17 - CONCLUSION: 1. Suboptimal single view study with mild motion artifact. 2. No significant change in the bibasilar opacities. Guevara Crowell MD Renal Ultrasound 04/20/17 0000 Signed Impressions: Service Date/Time: April 15:07 - CONCLUSION: 1. There is no hydronephrosis. 2. Stable 8mm nonobstructing left renal stone. Duncan Avery MD Head CT 04/19/17 0702 Signed Impressions: Service Date/Time: Wednesday, April 19, 2017 07:29 - CONCLUSION: 1. Cerebral white matter hypodensity characteristic of chronic microvascular ischemic disease. 2. No evidence of acute infarct, hemorrhage, mass or edema. Renato Coughlin MD Objective Remarks GENERAL: Morbid obese in no acute distress. SKIN: No lesions or rash CARDIOVASCULAR: Regular rate and rhythm without murmurs, gallops, or rubs. RESPIRATORY: Breath sounds equal bilaterally. No accessory muscle use. GASTROINTESTINAL: Abdomen soft, obese BACK: Paraspinal muscle spasm located in the mid to lower back. NEURO: Alert and oriented to person. Generalized weakness. Follow simple commands Procedures Vas-Cath A/P Problem List: (1) Acute hypoxemic respiratory failure ICD Code: J96.01 - Acute respiratory failure with hypoxia Status: Acute (2) Acute metabolic encephalopathy ICD Code: G93.41 - Metabolic encephalopathy (3) Pneumonia ICD Code: J18.9 - Pneumonia, unspecified organism Status: Acute (4) COPD with acute exacerbation ICD Code: J44.1 - Chronic obstructive pulmonary disease with (acute) exacerbation (5) Diabetes ICD Code: E11.9 - Type 2 diabetes mellitus without complications Status: Acute (6) Hypertension ICD Code: I10 - Hypertension Status: Acute (7) Acute on chronic kidney failure ICD Code: N17.9 - Acute kidney failure, unspecified; N18.9 - Chronic kidney disease, unspecified Assessment and Plan Acute metabolic encephalopathy. Recurrent but improving at the moment - CT of the head negative for acute findings - Most likely secondary to worsening renal failure with a combination of sedating medication. - Will hold sedating medication. - Patient scheduled for dialysis. - EEG without seizure Speech therapy for cognitive evaluation Acute respiratory failure Pneumonia COPD with exacerbation Restrictive lung disease - Extubated 04/21. BiPAP use when necessary - DuoNeb every 4 hours scheduled and when necessary - Status post cefepime and azithromycin. Patient currently on Augmentin and Flagyl. Stop dates ordered Chronic A. fib - Rate controlled with metoprolol, Diltiazem, and digoxin. - Continue Eliquis Acute on chronic kidney disease -Hemodialysis per nephrology Severe sepsis Pneumonia - Blood sputum and urine culture, all negative to date -Patient was treated empirically for questionable aspiration pneumonia where she was put on cefepime. S/p discontinue cefepime and azithromycin. On Augmentin and Flagyl. Hypothyroidism Type 2 diabetes - Continue levothyroxine, sliding-scale insulin - SSI. Levemir Lower back pain -Secondary to muscle spasm. Patient was initially put on Flexeril but she is too sedated discontinued Flexeril. Ileus -Clear liquid, IV Reglan, Colon tube to gravity (red tube) GI and CRS following. NGT discontinued. Out of bed and increase activity as tolerated -ct IVF for now Leukocytosis -thought to be due to steroid use. She continues to remain afebrile. Will need to continue to monitor closely. Follow-up C. difficile. PROPH: - Bilateral lower extremity SCDs, Eliquis, Protonix Problem Qualifiers (1) Pneumonia: (2) Diabetes: Reese Steinberg MD May 03, 2017 13:59
--- NOTE | 2017-05-03 14:25 | HHI.GIFU ---
Subjective Remarks Resting in bed. Lethargic, No n/v. She denies abdominal pain. She has a flexiseal and is passing liquid stool. (Yamile Cosme) Objective Vitals I&O Vital Signs Date Time Temp Pulse Resp B/P (MAP) Pulse Ox O2 Delivery O2 Flow Rate FiO2 05/03/17 12:00 98.6 69 18 129/63 (85) 100 05/03/17 09:49 Nasal Cannula 2.00 93 05/03/17 08:00 98.8 81 20 117/60 (79) 99 05/03/17 04:00 97.6 76 18 114/56 (75) 96 05/03/17 00:00 98.4 75 18 127/61 (83) 100 05/02/17 22:10 Nasal Cannula 2.00 05/02/17 20:00 98.6 92 18 147/62 (90) 100 05/02/17 19:43 90 05/02/17 18:46 Nasal Cannula 2.00 93 05/02/17 16:00 98.2 73 18 138/63 (88) 100 I/O 05/02/17 05/02/17 05/02/17 05/03/17 05/03/17 05/03/17 07:00 15:00 23:00 07:00 15:00 23:00 Intake Total 0 ml Output Total 1700 ml 200 ml Balance -1700 ml -200 ml Intake Oral 0 ml Output Urine Total 200 ml Hemodialysis 1700 ml Bladder Scan Volume Amount 260 ml 460 ml 460 ml # Bowel Movements 4 Laboratory Laboratory Tests Test 05/03/17 07:22 05/03/17 07:23 White Blood Count 15.9 Red Blood Count 2.65 Hemoglobin 7.9 Hematocrit 25.2 Mean Corpuscular Volume 95.0 Mean Corpuscular Hemoglobin 29.8 Mean Corpuscular Hemoglobin Concent 31.3 Red Cell Distribution Width 14.9 Platelet Count 196 Mean Platelet Volume 8.3 Neutrophils (%) (Auto) 87.4 Lymphocytes (%) (Auto) 3.1 Monocytes (%) (Auto) 9.0 Eosinophils (%) (Auto) 0.4 Basophils (%) (Auto) 0.1 Neutrophils # (Auto) 13.9 Lymphocytes # (Auto) 0.5 Monocytes # (Auto) 1.4 Eosinophils # (Auto) 0.1 Basophils # (Auto) 0.0 CBC Comment DIFF FINAL Differential Comment Blood Urea Nitrogen 61 Creatinine 4.20 Random Glucose 125 Calcium Level 8.2 Magnesium Level 2.2 Sodium Level 141 Potassium Level 4.2 Chloride Level 104 Carbon Dioxide Level 22.9 Anion Gap 14 Estimat Glomerular Filtration Rate 12 Date/Time Source Procedure Growth Status 04/19/17 16:54 Blood Peripheral Aerobic Blood Culture - Final NO GROWTH IN 5 DAYS Complete 04/19/17 16:54 Blood Peripheral Anaerobic Blood Culture - Final NO GROWTH IN 5 DAYS Complete 04/19/17 13:10 Sputum Endotracheal Gram Stain - Final Complete 04/19/17 13:10 Sputum Endotracheal Sputum Culture - Final HEAVY GROWTH NORMAL RESPIRATORY GORDON Complete 04/19/17 06:15 Urine Clean Catch Urine Culture - Final NO GROWTH Complete Imaging Last Impressions Abdomen X-Ray 05/02/17 0600 Signed Impressions: Service Date/Time: Tuesday, May 02, 2017 06:06 - CONCLUSION: Slight interval decompression of the colon Duncan Delgado MD Enema w/Water Soluble 05/02/17 0000 Signed Impressions: Service Date/Time: Tuesday, May 02, 2017 08:02 - CONCLUSION: 1. Limited suboptimal exam. The cecum and right colon could not be opacified despite repeated attempts. 2. Residual stool and mild to moderate diverticulosis. Guevara Crowell MD Abdomen/Pelvis CT 05/02/17 0000 Signed Impressions: Service Date/Time: Tuesday, May 02, 2017 19:58 - CONCLUSION: 1. Nonspecific bowel gas pattern remains with contrast noted in the colon from the recent Gastrografin enema. The cecum remains distended. A rectal catheter is present. 2. No free air or fluid. 3. Small pleural effusions with mild consolidation in the lung bases. 4. Stable small adrenal masses likely representing adenomas. 5. Small nonobstructing left renal calculus. Guevara Crowell MD Catheter Placement X-Ray 05/01/17 0000 Signed Impressions: Service Date/Time: Monday, May 01, 2017 11:45 - CONCLUSION: Uncomplicated line placement as above. Brian Mcmanus MD Chest X-Ray 04/23/17 0600 Signed Impressions: Service Date/Time: Sunday, April 23, 2017 04:17 - CONCLUSION: 1. Suboptimal single view study with mild motion artifact. 2. No significant change in the bibasilar opacities. Guevara Crowell MD Renal Ultrasound 04/20/17 0000 Signed Impressions: Service Date/Time: April 15:07 - CONCLUSION: 1. There is no hydronephrosis. 2. Stable 8mm nonobstructing left renal stone. Duncan Avery MD Head CT 04/19/17 0702 Signed Impressions: Service Date/Time: Wednesday, April 19, 2017 07:29 - CONCLUSION: 1. Cerebral white matter hypodensity characteristic of chronic microvascular ischemic disease. 2. No evidence of acute infarct, hemorrhage, mass or edema. Renato Coughlin MD Physical Exam HEENT: Normocephalic; atraumatic; no jaundice. CHEST: Resp. shallow/even, diminished CARDIAC: RRR ABDOMEN: Soft, obese, mildly distended, nontender; no hepatosplenomegaly; bowel sounds are present in all four quadrants. EXTREMITIES: Generalized edema. SKIN: Normal; no rash; no jaundice. HUMAN RESOURCES REPRESENTATIVE: No focal deficits; lethargic (Yamile Cosme ASPHALT DAUBER) Assessment and Plan Plan ASSESSMENT: - Abdominal pain, colonic ileus. KUB (04/30/17)----> Gaseous dilatation of colon greatest in the cecal region measuring up to 13 cm. Differential diagnosis includes ileus. A distal colonic obstruction could have a similar appearance. Of note, she has a history of SBO and underwent exploratory laparotomy with lysis of adhesions for abdominal pain, probable small bowel obstruction (01/05/13) with Dr. Tam. S/P Gastrografin Enema (05/02/17)--> Limited suboptimal exam. The cecum and right colon could not be opacified despite repeated attempts. Residual stool and mild to moderate diverticulosis. CT Scan abdomen and pelvis without iv contrast (05/02/17)--> nonspecific bowel gas pattern remains with contrast noted in the colon from recent Gastrografin enema. The cecum remains distended. A rectal catheter. No free air or fluid. Small pleural effusions with mild consolidation in the lung bases. Stable small adrenal masses likely representing adenomas. Small nonobstructing left renal calculus. Clinically, mildly distended, nontender. Red rectal tube has been removed. Now with flexiseal- large amount of liquid stool. NPO. Will start clears. - Acute on chronic kidney disease with electrolyte abnormalities. S/P Vascath, started HD. - Respiratory failure, COPD Exacerbation, PNA. Flagyl, Augmentin - Atrial fibrillation. Digoxin, cardizem, Eliquis, BB - HTN, DM, metabolic encephalopathy, hypothyroidism per attending PLAN: - Clear liquids - Reglan 5mg IV q8h - Monitor las - KUB in am - Supportive care - Encourage mobility - Further recommendations to follow based on results of above - Pt seen and examined by Dr. Cooper and myself and this note is written on her behalf (Yamile Cosme) Yamile Cosme May 03, 2017 14:25 Delfina Cooper MD May 03, 2017 19:54
[2017-05-03] MEDS: LACTOBACILLUS ACIDOPHILUS TAB PO SCH (18:15)
[2017-05-03] MEDS: ATORVASTATIN 20 MG TAB PO SCH (21:58)
[2017-05-03] MEDS: METOCLOPRAMIDE HCL 10 MG/2 ML VIAL IV PUSH SCH (21:59)
[2017-05-04] VITALS (8 sets, daily range): BP systolic 117–137; BP diastolic 58–61; PULSE 64–89; RESP 18–20; TEMP 98–98.5; O2SAT 94–98
[2017-05-04] MEDS: CHLORHEXIDINE GLUCONATE 2 % 1 PACK (2 CLOTHS) TOP SCH (04:00)
[2017-05-04 05:15] LABS: C. DIFF EPI 027 PRESUMPTIVE NEGATIVE (NEGATIVE)
[2017-05-04] MEDS: LEVOTHYROXINE SODIUM 125 MCG TAB PO SCH (05:24)
[2017-05-04] MEDS: metroNIDAZOLE 500 MG TAB PO SCH (05:24)
[2017-05-04] MEDS: METOCLOPRAMIDE HCL 10 MG/2 ML VIAL IV PUSH SCH ×3 (05:26→21:40)
--- NOTE | 2017-05-04 06:25 | RADRPT ---
EXAM DATE/TIME: 05/04/2017 06:03 [facility] COMPARISON: ABDOMEN KUB ONLY, May 02, 2017, 6:06. CT ABDOMEN & PELVIS W/O CONTRAST, May 02, 2017, 19:58. INDICATIONS : Abdominal pain. Evaluate ileus. MEDICAL HISTORY : Cardiovascular disease. Hypertension. Diabetes mellitus type 2. SURGICAL HISTORY : None. ENCOUNTER: Subsequent ACUITY: 1 week PAIN SCORE: Non-responsive. LOCATION: all quadrants. FINDINGS: There is contrast present throughout the distal colon to the level of the rectum. The majority the co joceline is normal in caliber, however the cecum is dilated to nearly 13 cm which is fairly stable. Areas present occasional nondilated small bowel loops. CONCLUSION: Contrast through to the rectum. Basically stable dilatation of the proximal colon Duncan Delgado MD on May 04, 2017 at 6:22 Board Certified Radiologist. This report was verified electronically.
--- NOTE | 2017-05-04 07:41 | HHI.PR ---
Subjective Remarks C/R Surg afebrile,VSS not very talkative lg rectal output with rectal tube insertion adv diet Objective - Vital Signs Date Time Temp Pulse Resp B/P (MAP) Pulse Ox O2 Delivery O2 Flow Rate FiO2 05/04/17 04:00 Nasal Cannula 4.00 05/04/17 04:00 98.3 71 18 117/58 (77) 96 05/03/17 09:49 93 Result Diagram: 05/03/17 0722 05/03/17 0723 Objective Remarks PE alert, some response to verbal commands Abd - lg, softer, still some tympany, no rectal bleeding A/P Assessment and Plan Imp: No obstr on Gastrograffin enema try OOB cont dialysis cont PO Wilner Tam MD May 04, 2017 07:41
[2017-05-04] MEDS: INSULIN ASPART SUPPLEMENTAL SCALE SQ SCH ×4 (08:00→21:40)
[2017-05-04] MEDS: CHLORHEXIDINE 0.12% (ORAL KIT) 15 ML CUP MT SCH ×2 (08:00→20:00)
[2017-05-04] MEDS: INSULIN DETEMIR 100 UNITS/ML VIAL SQ SCH ×2 (08:11→21:40)
[2017-05-04] MEDS: LACTOBACILLUS ACIDOPHILUS TAB PO SCH ×3 (08:12→16:34)
[2017-05-04] MEDS: AMOXICILLIN/CLAVULANATE K 875 MG TAB PO SCH (08:12)
[2017-05-04] MEDS: APIXABAN 2.5 MG TABLET PO SCH ×2 (08:12→21:38)
[2017-05-04] MEDS: METOPROLOL TARTRATE 25 MG TAB PO SCH ×2 (08:12→21:38)
[2017-05-04] MEDS: MULTIVITAMINS/MINERALS THERAPEUTIC TAB PO SCH ×2 (08:12→21:38)
[2017-05-04] MEDS: CALCITRIOL 0.25 MCG CAP PO SCH (08:12)
[2017-05-04] MEDS: DILTIAZEM-CD 180 MG CAP ER PO SCH (08:13)
[2017-05-04] MEDS: CHOLECALCIFEROL (VIT D3) 400 UNIT TAB PO SCH ×2 (08:13→21:38)
[2017-05-04] MEDS: PANTOPRAZOLE SOD 20 MG DELAYED RELEASE TAB PO SCH ×2 (08:13→21:39)
[2017-05-04] MEDS: DIGOXIN 0.125 MG TAB PO SCH (08:13)
[2017-05-04] MEDS: SODIUM CHLORIDE 0.9% FLUSH 10 ML FLUSH IV FLUSH SCH ×2 (08:14→21:41)
[2017-05-04 09:12] LABS: BASOPHIL # 0.1 TH/MM3 (0-0.2); BASOPHIL % 0.7 % (0.0-2.0); EOSINOPHIL # 0.1 TH/MM3 (0-0.4); EOSINOPHIL % 0.5 % (0.0-4.0); HEMATOCRIT 24.8 % (35.0-46.0); HEMO FLAGS DIFF FINAL; LYMPH % 3.8 % (9.0-44.0); LYMPHOCYTE # 0.6 TH/MM3 (1.0-4.8); MEAN CELL VOLUME 96.5 FL (80.0-100.0); MEAN CORPUSCULAR HEMOGLOBIN 30.9 PG (27.0-34.0); MONO % 9.3 % (0.0-8.0); NEUT % 85.7 % (16.0-70.0); PLATELET COUNT 189 TH/MM3 (150-450); RED BLOOD COUNT 2.57 MIL/MM3 (4.00-5.30); RED CELL DISTRIBUTION WIDTH 15.3 % (11.6-17.2); WHITE BLOOD COUNT 15.2 TH/MM3 (4.0-11.0)
[2017-05-04 10:32] LABS: BICARBONATE 23.4 MEQ/L (21.0-32.0); MAGNESIUM 2.4 MG/DL (1.5-2.5)
[2017-05-04 10:45] LABS: POTASSIUM 4.8 MEQ/L (3.5-5.1)
--- NOTE | 2017-05-04 12:00 | HHI.NPPN ---
Subjective History of Present Illness Patient is a 82-year-old with sepsis, COPD, intubation, diabetes, acute renal failure and chronic kidney disease. Additional Remarks Patient is confused, and now with nasal cannula Objective Data Data Vital Signs Date Time Temp Pulse Resp B/P (MAP) Pulse Ox O2 Delivery O2 Flow Rate FiO2 05/04/17 08:02 98.4 75 20 137/61 (86) 98 05/04/17 04:00 Nasal Cannula 4.00 05/04/17 04:00 98.3 71 18 117/58 (77) 96 05/04/17 00:00 Nasal Cannula 4.00 05/03/17 23:13 98.7 68 18 126/56 (79) 99 05/03/17 20:00 Nasal Cannula 4.00 05/03/17 19:55 90 05/03/17 19:45 98.6 77 18 123/60 (81) 100 05/03/17 17:26 100 05/03/17 16:00 99.0 66 18 128/67 (87) 100 05/03/17 12:00 98.6 69 18 129/63 (85) 100 -: 05/04/17 0549 05/04/17 0549 Physical Exam General Appearance: No Acute Distress, Comfortable, Obese Neck Neck Exam: Neck Supple Pulmonary Resp Exam: Decreased Bases Cardiology CV Exam: Arrhythmia Gastrointestinal/Abdomen GI Exam: Bowel Sounds Hypoactive Extremeties Extremities Exam: Trace Edema Neurologic Neuro Exam: Alert, Awake Psychiatric Psych Exam: Appropriate Responses Assessment/Plan Problem List: (1) Acute on chronic renal insufficiency ICD Codes: N28.9 - Disorder of kidney and ureter, unspecified; N18.9 - Chronic kidney disease, unspecified Status: Acute Plan: Patient is in acute renal failure and had chronic kidney disease ESRD Hemodialysis proceedings noted 1.5 L UF Next hemodialysis Sat . GI and colorectal surgery following the patient (2) Hypertension ICD Codes: I10 - Hypertension Status: Acute Plan: Blood pressure was low (3) Diabetes ICD Codes: E11.9 - Type 2 diabetes mellitus without complications Status: Acute Plan: Continue to monitor (4) COPD with acute exacerbation ICD Codes: J44.1 - Chronic obstructive pulmonary disease with (acute) exacerbation Plan: extubated Problem Qualifiers (1) Diabetes: Tonja Grewal MD May 04, 2017 12:00
[2017-05-04] MEDS: GENTAMICIN SULFATE (DIALYSIS USE ONLY) 20 MG/2 ML VIAL OTHER PRN (12:36)
[2017-05-04] MEDS: EPOETIN ALFA 10,000 UNITS/ML VIAL IV PUSH PRN (12:37)
--- NOTE | 2017-05-04 12:42 | HHI.PR ---
Subjective Remarks having her HD today. in no acute distress. but is somewhat lethargic. no fever. Objective Vitals Vital Signs Date Time Temp Pulse Resp B/P (MAP) Pulse Ox O2 Delivery O2 Flow Rate FiO2 05/04/17 08:02 98.4 75 20 137/61 (86) 98 05/04/17 04:00 Nasal Cannula 4.00 05/04/17 04:00 98.3 71 18 117/58 (77) 96 05/04/17 00:00 Nasal Cannula 4.00 05/03/17 23:13 98.7 68 18 126/56 (79) 99 05/03/17 20:00 Nasal Cannula 4.00 05/03/17 19:55 90 05/03/17 19:45 98.6 77 18 123/60 (81) 100 05/03/17 17:26 100 05/03/17 16:00 99.0 66 18 128/67 (87) 100 I/O 05/03/17 05/03/17 05/03/17 05/04/17 05/04/17 05/04/17 07:00 15:00 23:00 07:00 15:00 23:00 Intake Total 0 ml 107 ml Output Total 0 ml Balance 0 ml 107 ml Intake Oral 0 ml 0 ml IV Total 107 ml Output Urine Total 0 ml Stool Total 0 ml Bladder Scan Volume Amount 460 ml 274 ml 460 ml # Voids 0 # Bowel Movements 0 Result Diagram: 05/04/17 0549 05/04/17 0549 Imaging Last Impressions Abdomen X-Ray 05/02/17 0600 Signed Impressions: Service Date/Time: Tuesday, May 02, 2017 06:06 - CONCLUSION: Slight interval decompression of the colon Duncan Delgado MD Enema w/Water Soluble 05/02/17 0000 Signed Impressions: Service Date/Time: Tuesday, May 02, 2017 08:02 - CONCLUSION: 1. Limited suboptimal exam. The cecum and right colon could not be opacified despite repeated attempts. 2. Residual stool and mild to moderate diverticulosis. Guevara Crowell MD Abdomen/Pelvis CT 05/02/17 0000 Signed Impressions: Service Date/Time: Tuesday, May 02, 2017 19:58 - CONCLUSION: 1. Nonspecific bowel gas pattern remains with contrast noted in the colon from the recent Gastrografin enema. The cecum remains distended. A rectal catheter is present. 2. No free air or fluid. 3. Small pleural effusions with mild consolidation in the lung bases. 4. Stable small adrenal masses likely representing adenomas. 5. Small nonobstructing left renal calculus. Guevara Crowell MD Catheter Placement X-Ray 05/01/17 0000 Signed Impressions: Service Date/Time: Monday, May 01, 2017 11:45 - CONCLUSION: Uncomplicated line placement as above. Brian Mcmanus MD Chest X-Ray 04/23/17 0600 Signed Impressions: Service Date/Time: Sunday, April 23, 2017 04:17 - CONCLUSION: 1. Suboptimal single view study with mild motion artifact. 2. No significant change in the bibasilar opacities. Guevara Crowell MD Renal Ultrasound 04/20/17 0000 Signed Impressions: Service Date/Time: April 15:07 - CONCLUSION: 1. There is no hydronephrosis. 2. Stable 8mm nonobstructing left renal stone. Duncan Avery MD Head CT 04/19/17 0702 Signed Impressions: Service Date/Time: Wednesday, April 19, 2017 07:29 - CONCLUSION: 1. Cerebral white matter hypodensity characteristic of chronic microvascular ischemic disease. 2. No evidence of acute infarct, hemorrhage, mass or edema. Renato Coughlin MD Objective Remarks GENERAL: elderly female, in no apparent distress. CARDIOVASCULAR: Regular rate and regular rhythm without murmurs, gallops, or rubs. RESPIRATORY: Clear to auscultation. Breath sounds equal bilaterally. No wheezes , rales, or rhonchi. GASTROINTESTINAL: Abdomen soft, non-tender, nondistended. Normal, active bowel sounds MUSCULOSKELETAL: Extremities without clubbing, cyanosis, or edema. NEURO: lethargic but easily arousable. Procedures Vas-Cath Medications and IVs Current Medications Propofol 100 ml @ As Directed STK-MED ONCE .ROUTE ; Start 04/19/17 at 06:24; Stop 04/19/17 at 06:25; Status DC Etomidate (Amidate Inj) 20 mg ONCE ONCE IVP Last administered on 04/19/17t 06 :20; Start 04/19/17 at 06:30; Stop 04/19/17 at 06:31; Status DC Succinylcholine Chloride (Quelicin Inj) 100 mg ONCE ONCE IV PUSH Last administered on 04/19/17 06:20; Start 04/19/17 at 06:30; Stop 04/19/17 at 06 :31; Status DC Albuterol/ Ipratropium (Duoneb Neb) 1 ampule Q15M INH Last administered on 07:07; Start 04/19/17 at 06:30; Stop 04/19/17 at 07:01; Status DC Sodium Chloride (NS Flush) 2 ml UNSCH PRN IVF FLUSH AFTER USING IV ACCESS; Start 04/19/17 at 06:30; Stop 04/19/17 at 08:59; Status DC Propofol 100 ml @ 0 mls/hr TITRATE PRN IV Ordered RASS Last administered on 06:30; Start 04/19/17 at 06:30; Stop 04/19/17 at 08:59; Status DC Sodium Chloride 1,000 ml @ 999 mls/hr BOLUS ONCE IV Last administered on 07:15; Start 04/19/17 at 07:15; Stop 04/19/17 at 08:15; Status DC Sodium Chloride 1,000 ml @ 999 mls/hr BOLUS ONCE IV Last administered on 07:30; Start 04/19/17 at 07:30; Stop 04/19/17 at 08:30; Status DC Propofol 100 ml @ 3.6 mls/hr TITRATE PRN IV SEDATION Last administered on 02:09; Start 04/19/17 at 08:30; Stop 04/22/17 at 11:35; Status DC Sodium Chloride (NS Flush) 2 ml UNSCH PRN IV FLUSH FLUSH AFTER USING IV ACCESS Last administered on 04/22/17 18:02; Start 04/19/17 at 08:30 Sodium Chloride (NS Flush) 2 ml BID IV FLUSH Last administered on 05/04/17 08: 14; Start 04/19/17 at 09:00 Albuterol/ Ipratropium (Duoneb Neb) 1 ampule Q6HR NEB NEB Last administered on 04/22/17 08:39; Start 04/19/17 at 10:00; Stop 04/22/17 at 11:34; Status DC Albuterol/ Ipratropium (Duoneb Neb) 1 ampule Q2HR NEB PRN INH SHORTNESS OF BREATH Last administered on 04/20/17 12:34; Start 04/19/17 at 08:30 Chlorhexidine Gluconate (Peridex 0.12% Liq) 15 ml BID@08,20 MT Last administered on 04/22/17 10:04; Start 04/19/17 at 20:00; Stop 04/22/17 at 18 :11; Status DC Pantoprazole Sodium (Protonix Inj) 40 mg DAILY IV PUSH Last administered on 09:53; Start 04/19/17 at 09:00; Stop 04/23/17 at 16:47; Status DC Miscellaneous Information 1 [id number] ; Start 04/19/17 at 08:30 Chlorhexidine Gluconate (Chlorhexidine 2% Cloth) Taper DAILY@04 TOP Last administered on 04/26/17 04:00; Start 04/20/17 at 04:00; Stop 04/16/18 at 03 :59 Chlorhexidine Gluconate (Chlorhexidine 2% Cloth) 3 pack UNSCH PRN TOP HYGIENIC CARE; Start 04/19/17 at 08:30 Methylprednisolone Sodium Succinate (SoluMEDROL INJ) 60 mg Q6H IV PUSH Last administered on 04/22/17 09:58; Start 04/19/17 at 09:00; Stop 04/22/17 at 11 :35; Status DC Cefepime HCl 2000 mg/Sodium Chloride 100 ml @ 200 mls/hr Q12H IV Last administered on 04/20/17 07:53; Start 04/19/17 at 09:00; Stop 04/20/17 at 13 :58; Status DC Azithromycin 500 mg/Sodium Chloride 250 ml @ 250 mls/hr Q24H IV Last administered on 04/23/17 15:28; Start 04/19/17 at 14:00; Stop 04/23/17 at 16 :47; Status DC Sodium Chloride 1,000 ml @ 999 mls/hr BOLUS ONCE IV Last administered on 11:00; Start 04/19/17 at 13:30; Stop 04/19/17 at 14:30; Status DC Sodium Chloride 1,000 ml @ 999 mls/hr BOLUS ONCE IV ; Start 04/19/17 at 13:30 ; Stop 04/19/17 at 14:30; Status DC Apixaban (Eliquis) 2.5 mg BID PO Last administered on 05/04/17 08:12; Start 04/19/17 at 21:00 Atorvastatin Calcium (Lipitor) 20 mg HS PO Last administered on 05/03/17 21:58 ; Start 04/19/17 at 21:00 Calcitriol (Rocaltrol) 0.25 mcg DAILY PO Last administered on 05/04/17 08:12; Start 04/20/17 at 09:00 Levothyroxine Sodium (Synthroid) 125 mcg DAILY@0600 PO Last administered on 05:24; Start 04/20/17 at 06:00 Metoprolol Tartrate (Lopressor) 50 mg BID PO Last administered on 04/28/17 09 :20; Start 04/19/17 at 21:00; Stop 04/28/17 at 14:50; Status DC Cholecalciferol (Vitamin D3) 400 units BID PO Last administered on 05/04/17 08 :13; Start 04/19/17 at 21:00 Influenza Virus Vaccine (Flu (Quadrivalent) Vaccine Inj) 0.5 ml ONCE ONCE IM Last administered on 04/20/17 09:56; Start 04/20/17 at 10:00; Stop 04/20/17 at 10:01; Status DC Sodium Chloride 1,000 ml @ 75 mls/hr [id number] IV Last administered on 21:20; Start 04/19/17 at 15:00; Stop 04/22/17 at 11:35; Status DC Insulin Aspart (NovoLOG SUPPLEMENTAL SCALE) 1 Q4H SQ Last administered on 04/29 20:04; Start 04/19/17 at 17:00; Stop 04/29/17 at 20:58; Status DC Bumetanide (Bumex Inj) 1 mg STK-MED ONCE .ROUTE ; Start 04/20/17 at 11:08; Stop 04/20/17 at 11:09; Status DC Bumetanide (Bumex Inj) 1 mg NOW ONCE IV PUSH Last administered on 04/20/17 15:46; Start 04/20/17 at 13:15; Stop 04/20/17 at 13:16; Status DC Cefepime HCl 2000 mg/Sodium Chloride 100 ml @ 200 mls/hr DAILY IV Last administered on 04/27/17 10:19; Start 04/21/17 at 09:00; Stop 04/27/17 at 11 :15; Status DC Chlorhexidine Gluconate (Peridex 0.12% Liq) 15 ml BID@08,20 MT Last administered on 05/04/17 08:00; Start 04/20/17 at 20:00 Midazolam HCl 100 ml @ 2 mls/hr TITRATE PRN IV SEDATION; Start 04/20/17 at 14: 30; Stop 04/22/17 at 11:35; Status DC Fentanyl Citrate 250 ml @ 5 mls/hr TITRATE PRN IV SEDATION Last administered on 04/20/17 20:36; Start 04/20/17 at 14:30; Stop 04/22/17 at 11:35; Status DC Hydralazine HCl (Apresoline Inj) 20 mg Q4H PRN IV PUSH SYS BP GREATER THAN 170 MMHG Last administered on 04/22/17 18:02; Start 04/21/17 at 11:30 Insulin Detemir (Levemir Inj) 5 units Q12HR SQ Last administered on 05/01/17 09:00; Start 04/21/17 at 11:30; Stop 05/01/17 at 10:54; Status DC Bumetanide (Bumex Inj) 2 mg STK-MED ONCE .ROUTE ; Start 04/21/17 at 13:31; Stop 04/21/17 at 13:32; Status DC Lorazepam (Ativan Inj) 2 mg STK-MED ONCE .ROUTE ; Start 04/21/17 at 13:51; Stop 04/21/17 at 13:52; Status DC Morphine Sulfate (Morphine Inj) 2 mg ONCE ONCE IV PUSH Last administered on 14:15; Start 04/21/17 at 14:15; Stop 04/21/17 at 14:16; Status DC Lorazepam (Ativan Inj) 1 mg ONCE ONCE IV PUSH Last administered on 04/21/17 14:24; Start 04/21/17 at 14:15; Stop 04/21/17 at 14:16; Status DC Bumetanide (Bumex Inj) 2 mg NOW ONCE IV PUSH Last administered on 04/21/17 14:24; Start 04/21/17 at 14:15; Stop 04/21/17 at 14:16; Status DC Morphine Sulfate (Morphine Inj) 4 mg STK-MED ONCE .ROUTE ; Start 04/21/17 at 14 :08; Stop 04/21/17 at 14:09; Status DC Albuterol/ Ipratropium (Duoneb Neb) 1 ampule Q6HR NEB NEB Last administered on 04/26/17 11:48; Start 04/22/17 at 16:00; Stop 04/26/17 at 15:59; Status DC Methylprednisolone Sodium Succinate (SoluMEDROL INJ) 40 mg Q8H IV PUSH Last administered on 04/23/17 09:53; Start 04/22/17 at 17:00; Stop 04/23/17 at 16 :47; Status DC Morphine Sulfate (Morphine Inj) 1 mg Q4H PRN IV PAIN SCALE 1 TO 10 Last administered on 04/23/17 23:29; Start 04/22/17 at 18:00; Stop 05/02/17 at 08 :55; Status DC Morphine Sulfate (Morphine Inj) 1 mg Q4H PRN IV PAIN 1-10; Start 04/22/17 at 18:15; Stop 04/22/17 at 18:15; Status DC Diltiazem HCl (Cardizem Inj) 10 mg NOW ONCE IV Last administered on 12:31; Start 04/23/17 at 12:15; Stop 04/23/17 at 12:16; Status DC Diltiazem HCl (Cardizem Cd) 300 mg NOW ONCE PO Last administered on 12:15; Start 04/23/17 at 12:15; Stop 04/23/17 at 12:16; Status DC Diltiazem HCl (Cardizem Cd) 300 mg DAILY PO Last administered on 04/24/17 08: 23; Start 04/24/17 at 09:00; Stop 04/24/17 at 13:07; Status DC Gabapentin (Neurontin) 100 mg BID PO Last administered on 04/24/17 08:29; Start 04/23/17 at 13:00; Stop 04/24/17 at 09:22; Status DC Methylprednisolone Sodium Succinate (SoluMEDROL INJ) 40 mg Q12H IV PUSH Last administered on 04/27/17 08:31; Start 04/23/17 at 21:00; Stop 04/27/17 at 11 :15; Status DC Diltiazem HCl (Cardizem Inj) 10 mg STAT ONCE IV Last administered on 22:14; Start 04/23/17 at 22:15; Stop 04/23/17 at 22:16; Status DC Metoprolol Tartrate (Lopressor Inj) 5 mg Q5M PRN IV PUSH HR>100 Last administered on 04/26/17 08:28; Start 04/24/17 at 02:15 Diltiazem HCl (Cardizem Inj) 15 mg ONCE ONCE IV Last administered on 10:10; Start 04/24/17 at 09:15; Stop 04/24/17 at 09:16; Status DC Gabapentin (Neurontin) 100 mg BID PO Last administered on 05/01/17 09:24; Start 04/24/17 at 21:00; Stop 05/01/17 at 11:56; Status DC Multivitamins/ Minerals Therapeutic (Theragran M Tab) 1 tab BID PO Last administered on 05/04/17 08:12; Start 04/24/17 at 10:00 Pantoprazole Sodium (Protonix) 20 mg BID PO Last administered on 05/04/17 08: 13; Start 04/24/17 at 09:00 Diltiazem HCl (Cardizem Cd) 360 mg DAILY PO Last administered on 05/04/17 08: 13; Start 04/25/17 at 09:00 Diltiazem HCl (Cardizem) 60 mg ONCE ONCE PO Last administered on 04/24/17 14 :37; Start 04/24/17 at 13:15; Stop 04/24/17 at 13:35; Status DC Digoxin (Lanoxin) 0.125 mg ONCE ONCE PO Last administered on 04/26/17 09:00 ; Start 04/26/17 at 09:00; Stop 04/26/17 at 09:12; Status DC Digoxin (Lanoxin) 0.125 mg DAILY PO Last administered on 05/04/17 08:13; Start 04/27/17 at 09:00 Amoxicillin/ Clavulanate Potassium (Augmentin) 875 mg Q12HR PO Last administered on 05/04/17 08:12; Start 04/27/17 at 12:00; Stop 05/04/17 at 11: 59; Status DC Metronidazole (Flagyl) 500 mg Q8HR PO Last administered on 05/04/17 05:24; Start 04/27/17 at 14:00; Stop 05/04/17 at 13:59 Prednisone (Deltasone) 50 mg DAILY PO Last administered on 04/30/17 09:03; Start 04/28/17 at 09:00; Stop 04/30/17 at 11:08; Status DC Sodium Chloride 1,000 ml @ 42 mls/hr [id number] IV Last administered on 08:56; Start 04/27/17 at 15:00 Metoprolol Tartrate (Lopressor) 75 mg BID PO Last administered on 05/04/17 08: 12; Start 04/28/17 at 21:00 Insulin Aspart (NovoLOG SUPPLEMENTAL SCALE) 1 ACHS SQ Last administered on 08:00; Start 04/29/17 at 21:00; Stop 05/01/17 at 10:54; Status DC Cyclobenzaprine HCl (Flexeril) 5 mg Q8HR PO Last administered on 05/01/17 05: 33; Start 04/30/17 at 14:00; Stop 05/01/17 at 11:56; Status DC Miscellaneous (Pill Splitter) 1 ea UNSCH PRN OTHER SEE LABEL COMMENTS; Start 04/30/17 at 11:00 Sodium Chloride 1,000 ml @ 0 mls/hr Q0M PRN OTHER For Prime & Rinse Back Last administered on 05/02/17 11:00; Start 04/30/17 at 13:26 Heparin Sodium (Porcine) (Heparin Inj) 8,000 units UNSCH PRN IV FLUSH WITH DIALYSIS; Start 04/30/17 at 13:30 Sodium Chloride 1,000 ml @ 200 mls/hr Q5H PRN IV WITH DIALYSIS; Start at 13:26 Sodium Chloride 1,000 ml @ 0 mls/hr Q0M PRN OTHER WITH DIALYSIS; Start at 13:26 Mannitol (Mannitol Inj) 12.5 gm UNSCH PRN IV WITH DIALYSIS; Start 04/30/17 at 13:30 Albumin Human 100 ml @ 60 mls/hr UNSCH PRN IV WITH DIALYSIS; Start 04/30/17 at 13:30 Sodium Chloride (NS Flush) 5 ml UNSCH PRN IV FLUSH WITH DIALYSIS; Start at 13:30 Heparin Sodium (Porcine) (Heparin Inj) UNSCH PRN .XX WITH DIALYSIS Last administered on 05/02/17 11:00; Start 04/30/17 at 13:30 Gentamicin Sulfate (Gentamicin (Dialysis) Inj) 20 mg UNSCH PRN OTHER WITH DIALYSIS Last administered on 05/02/17 11:00; Start 04/30/17 at 13:30 Ondansetron HCl (Zofran Inj) 4 mg UNSCH PRN IV PUSH WITH DIALYSIS; Start 04/30 at 13:30 Acetaminophen (Tylenol) 650 mg UNSCH PRN PO for headach, pain, temp > 101F; Start 04/30/17 at 13:30 Diphenhydramine HCl (Benadryl) 25 mg UNSCH PRN PO for hives/itching/anaphylaxis ; Start 04/30/17 at 13:30 Nitroglycerin (Nitrostat Sl) 0.4 mg UNSCH PRN SL CHEST PAIN; Start 04/30/17 at 13:30 Clonidine (Catapres) 0.1 mg UNSCH PRN PO for BP > 180/100 X 2 readings; Start 04/30/17 at 13:30 Epoetin Temo (Epogen Inj) 10,000 units UNSCH PRN IV PUSH WITH DIALYSIS Last administered on 05/02/17 11:00; Start 04/30/17 at 13:30 Gelatin (Gelfoam 12 Mm/7 Mm Top) 1 foam UNSCH PRN TOP SEE LABEL COMMENTS; Start 04/30/17 at 13:30 Insulin Detemir (Levemir Inj) 10 units Q12HR SQ Last administered on 05/04/17 08:11; Start 05/01/17 at 21:00 Insulin Aspart (NovoLOG SUPPLEMENTAL SCALE) 1 ACHS SLIDING SCALE SQ ; Start at 12:00; Stop 05/02/17 at 08:55; Status DC Sodium Chloride (NS Flush) UNSCH PRN IV FLUSH SEE PROTOCOL; Start 05/01/17 at 12:15 Heparin Sodium (Porcine) (Heparin Inj) UNSCH PRN IV FLUSH SEE PROTOCOL; Start 05/01/17 at 12:15 Heparin Sodium (Porcine) (Heparin Inj) 2,200 units STK-MED ONCE SQ Last administered on 05/01/17 12:03; Start 05/01/17 at 12:24; Stop 05/01/17 at 12 :25; Status DC Sodium Chloride 500 ml @ 500 mls/hr BOLUS ONCE IV Last administered on 13:38; Start 05/01/17 at 14:00; Stop 05/01/17 at 14:59; Status DC Insulin Aspart (NovoLOG SUPPLEMENTAL SCALE) 1 ACHS SLIDING SCALE SQ Last administered on 05/04/17 08:00; Start 05/02/17 at 12:00 Morphine Sulfate (Morphine Inj) 0.5 mg Q4H PRN IV SEE LABEL COMMENTS; Start at 10:00 Diatrizoate Meglum/ Diatrizoate Sod ( Gastroview Liq) 1,200 ml STK-MED ONCE RECTAL Last administered on 05/02/17 15:42; Start 05/02/17 at 15:42; Stop 05/02/17 at 15:47; Status DC Diatrizoate Meglum/ Diatrizoate Sod ( Gastroview Liq) 18 ml ONCE ONCE PO ; Start 05/02/17 at 18:20; Stop 05/02/17 at 18:49; Status DC Metoclopramide HCl (Reglan Inj) 5 mg Q8HR IV PUSH Last administered on 05:26; Start 05/03/17 at 22:00 Lactobacillus Acidophilus (Lactinex) 1 tab TID PO Last administered on 08:12; Start 05/03/17 at 18:00 A/P Problem List: (1) Acute hypoxemic respiratory failure ICD Code: J96.01 - Acute respiratory failure with hypoxia Status: Acute (2) Acute metabolic encephalopathy ICD Code: G93.41 - Metabolic encephalopathy (3) Pneumonia ICD Code: J18.9 - Pneumonia, unspecified organism Status: Acute (4) COPD with acute exacerbation ICD Code: J44.1 - Chronic obstructive pulmonary disease with (acute) exacerbation (5) Diabetes ICD Code: E11.9 - Type 2 diabetes mellitus without complications Status: Acute (6) Hypertension ICD Code: I10 - Hypertension Status: Acute (7) Acute on chronic kidney failure ICD Code: N17.9 - Acute kidney failure, unspecified; N18.9 - Chronic kidney disease, unspecified Assessment and Plan A/P Acute metabolic encephalopathy. Recurrent but improving at the moment - CT of the head negative for acute findings - Most likely secondary to worsening renal failure with a combination of sedating medication. - hold sedating medication. - EEG without seizure Speech therapy for cognitive evaluation Acute respiratory failure Pneumonia COPD with exacerbation Restrictive lung disease - Extubated 04/21. BiPAP use when necessary - DuoNeb every 4 hours scheduled and when necessary - Status post cefepime and azithromycin. Patient currently on Augmentin and Flagyl. Stop dates ordered Chronic A. fib - Rate controlled with metoprolol, Diltiazem, and digoxin. - Continue Eliquis Acute on chronic kidney disease -Hemodialysis per nephrology Severe sepsis Pneumonia - Blood sputum and urine culture, all negative to date -Patient was treated empirically for questionable aspiration pneumonia where she was put on cefepime. S/p discontinue cefepime and azithromycin. On Augmentin and Flagyl. -consult ST for swallow evaluation Hypothyroidism Type 2 diabetes - Continue levothyroxine, sliding-scale insulin - SSI. Levemir Lower back pain -Secondary to muscle spasm. Patient was initially put on Flexeril but she is too sedated discontinued Flexeril. Ileus -Clear liquid, IV Reglan, Colon tube to gravity (red tube) GI and CRS following. NGT discontinued. Out of bed and increase activity as tolerated -GI and colorectal surgery following. Leukocytosis -thought to be due to steroid use. She continues to remain afebrile. Will need to continue to monitor closely. C. difficile negative. PROPH: - Bilateral lower extremity SCDs, Eliquis, Protonix Problem Qualifiers (1) Pneumonia: (2) Diabetes: Daniela Bunch MD May 04, 2017 12:42
[2017-05-04] MEDS: SODIUM CHLOR 0.9% 1000 ML INJ 1,000 ML IV SCH (14:48)
--- NOTE | 2017-05-04 15:45 | HHI.GIFU ---
Subjective Remarks Had HD today. Lethargic, but does arouse. Diet was advanced today. No abdominal discomfort. + BM. Flexiseal with liquid stool. (Yamile Cosme) Objective Vitals I&O Vital Signs Date Time Temp Pulse Resp B/P (MAP) Pulse Ox O2 Delivery O2 Flow Rate FiO2 05/04/17 08:02 98.4 75 20 137/61 (86) 98 05/04/17 04:00 Nasal Cannula 4.00 05/04/17 04:00 98.3 71 18 117/58 (77) 96 05/04/17 00:00 Nasal Cannula 4.00 05/03/17 23:13 98.7 68 18 126/56 (79) 99 05/03/17 20:00 Nasal Cannula 4.00 05/03/17 19:55 90 05/03/17 19:45 98.6 77 18 123/60 (81) 100 05/03/17 17:26 100 05/03/17 16:00 99.0 66 18 128/67 (87) 100 I/O 05/03/17 05/03/17 05/03/17 05/04/17 05/04/17 05/04/17 07:00 15:00 23:00 07:00 15:00 23:00 Intake Total 0 ml 107 ml Output Total 0 ml 1500 ml Balance 0 ml 107 ml -1500 ml Intake Oral 0 ml 0 ml IV Total 107 ml Output Urine Total 0 ml Stool Total 0 ml Hemodialysis 1500 ml Bladder Scan Volume Amount 460 ml 274 ml 460 ml # Voids 0 # Bowel Movements 0 Laboratory Laboratory Tests Test 05/04/17 04:20 05/04/17 05:49 Stool C. difficile Toxin (PCR) NEGATIVE Stl C. difficile Toxin Epiderm 027 PRESUMPTIVE NEGATIVE White Blood Count 15.2 Red Blood Count 2.57 Hemoglobin 7.9 Hematocrit 24.8 Mean Corpuscular Volume 96.5 Mean Corpuscular Hemoglobin 30.9 Mean Corpuscular Hemoglobin Concent 32.0 Red Cell Distribution Width 15.3 Platelet Count 189 Mean Platelet Volume 8.8 Neutrophils (%) (Auto) 85.7 Lymphocytes (%) (Auto) 3.8 Monocytes (%) (Auto) 9.3 Eosinophils (%) (Auto) 0.5 Basophils (%) (Auto) 0.7 Neutrophils # (Auto) 13.0 Lymphocytes # (Auto) 0.6 Monocytes # (Auto) 1.4 Eosinophils # (Auto) 0.1 Basophils # (Auto) 0.1 CBC Comment DIFF FINAL Differential Comment Blood Urea Nitrogen 72 Creatinine 5.26 Random Glucose 177 Calcium Level 8.4 Magnesium Level 2.4 Sodium Level 140 Potassium Level 4.8 Chloride Level 103 Carbon Dioxide Level 23.4 Anion Gap 14 Estimat Glomerular Filtration Rate 9 Date/Time Source Procedure Growth Status 04/19/17 16:54 Blood Peripheral Aerobic Blood Culture - Final NO GROWTH IN 5 DAYS Complete 04/19/17 16:54 Blood Peripheral Anaerobic Blood Culture - Final NO GROWTH IN 5 DAYS Complete 04/19/17 13:10 Sputum Endotracheal Gram Stain - Final Complete 04/19/17 13:10 Sputum Endotracheal Sputum Culture - Final HEAVY GROWTH NORMAL RESPIRATORY GORDON Complete 04/19/17 06:15 Urine Clean Catch Urine Culture - Final NO GROWTH Complete Imaging Last Impressions Abdomen X-Ray 05/04/17 0600 Signed Impressions: Service Date/Time: May 06:03 - CONCLUSION: Contrast through to the rectum. Basically stable dilatation of the proximal colon Duncan Delgaod MD Enema w/Water Soluble 05/02/17 0000 Signed Impressions: Service Date/Time: Tuesday, May 02, 2017 08:02 - CONCLUSION: 1. Limited suboptimal exam. The cecum and right colon could not be opacified despite repeated attempts. 2. Residual stool and mild to moderate diverticulosis. Guevara Crowell MD Abdomen/Pelvis CT 05/02/17 0000 Signed Impressions: Service Date/Time: Tuesday, May 02, 2017 19:58 - CONCLUSION: 1. Nonspecific bowel gas pattern remains with contrast noted in the colon from the recent Gastrografin enema. The cecum remains distended. A rectal catheter is present. 2. No free air or fluid. 3. Small pleural effusions with mild consolidation in the lung bases. 4. Stable small adrenal masses likely representing adenomas. 5. Small nonobstructing left renal calculus. Guevara Crowell MD Catheter Placement X-Ray 05/01/17 0000 Signed Impressions: Service Date/Time: Monday, May 01, 2017 11:45 - CONCLUSION: Uncomplicated line placement as above. Brian Mcmanus MD Chest X-Ray 04/23/17 0600 Signed Impressions: Service Date/Time: Sunday, April 23, 2017 04:17 - CONCLUSION: 1. Suboptimal single view study with mild motion artifact. 2. No significant change in the bibasilar opacities. Guevara Crowell MD Renal Ultrasound 04/20/17 0000 Signed Impressions: Service Date/Time: April 15:07 - CONCLUSION: 1. There is no hydronephrosis. 2. Stable 8mm nonobstructing left renal stone. Duncan Avery MD Head CT 04/19/17 0702 Signed Impressions: Service Date/Time: Wednesday, April 19, 2017 07:29 - CONCLUSION: 1. Cerebral white matter hypodensity characteristic of chronic microvascular ischemic disease. 2. No evidence of acute infarct, hemorrhage, mass or edema. Renato Coughlin MD Physical Exam HEENT: Normocephalic; atraumatic; no jaundice. CHEST: Resp. shallow/even, diminished CARDIAC: RRR ABDOMEN: Soft, obese, mildly distended, nontender; no hepatosplenomegaly; bowel sounds are present in all four quadrants. EXTREMITIES: Generalized edema. SKIN: Normal; no rash; no jaundice. TILE LAYER HELPER: No focal deficits; lethargic (Yamile Cosme CHIEF DATA OFFICER) Assessment and Plan Plan ASSESSMENT: - Abdominal pain, colonic ileus. KUB (04/30/17)----> Gaseous dilatation of colon greatest in the cecal region measuring up to 13 cm. Differential diagnosis includes ileus. A distal colonic obstruction could have a similar appearance. Of note, she has a history of SBO and underwent exploratory laparotomy with lysis of adhesions for abdominal pain, probable small bowel obstruction (01/05/13) with Dr. Tam. S/P Gastrografin Enema (05/02/17)--> Limited suboptimal exam. The cecum and right colon could not be opacified despite repeated attempts. Residual stool and mild to moderate diverticulosis. CT Scan abdomen and pelvis without iv contrast (05/02/17)--> nonspecific bowel gas pattern remains with contrast noted in the colon from recent Gastrografin enema. The cecum remains distended. A rectal catheter. No free air or fluid. Small pleural effusions with mild consolidation in the lung bases. Stable small adrenal masses likely representing adenomas. Small nonobstructing left renal calculus. KUB (05/04/17)---> Contrast through to the rectum, basically stable dilatation of the proximal colon. Clinically, much improved. Full liquid diet- Speech therapy consulted for swallow evaluation. + stool. - Acute on chronic kidney disease with electrolyte abnormalities. S/P Vascath, started HD. - Respiratory failure, COPD Exacerbation, PNA. S/P Abx. - Atrial fibrillation. Digoxin, cardizem, Eliquis, BB - HTN, DM, metabolic encephalopathy, hypothyroidism per attending PLAN: - Swallow evaluation - Full liquids - Reglan 5mg IV q8h - Monitor labs - CRS following - Supportive care - Encourage mobility - Further recommendations to follow based on results of above - Pt seen and examined by Dr. Hernández and myself and this note is written on his behalf (Yamile Cosme) Physician Comments Seen and examined, plan as above. Will follow up with you. (Benton Hernández MD) Yamile Cosme May 04, 2017 15:45 Benton Hernández MD May 04, 2017 16:26
[2017-05-04] MEDS: ATORVASTATIN 20 MG TAB PO SCH (21:39)
[2017-05-05] VITALS (10 sets, daily range): BP systolic 145–162; BP diastolic 66–70; PULSE 68–87; RESP 16–20; TEMP 97.5–98.7; O2SAT 91–100
[2017-05-05] MEDS: SODIUM CHLOR 0.9% 1000 ML INJ 1,000 ML IV SCH (02:47)
[2017-05-05] MEDS: CHLORHEXIDINE GLUCONATE 2 % 1 PACK (2 CLOTHS) TOP SCH (04:00)
[2017-05-05] MEDS: LEVOTHYROXINE SODIUM 125 MCG TAB PO SCH (05:00)
[2017-05-05] MEDS: METOCLOPRAMIDE HCL 10 MG/2 ML VIAL IV PUSH SCH ×3 (05:00→21:49)
[2017-05-05] MEDS: SODIUM CHLORIDE 0.9% FLUSH 10 ML FLUSH IV FLUSH PRN (05:01)
[2017-05-05] MEDS: CHLORHEXIDINE 0.12% (ORAL KIT) 15 ML CUP MT SCH ×2 (08:00→20:00)
[2017-05-05] MEDS: SODIUM CHLORIDE 0.9% FLUSH 10 ML FLUSH IV FLUSH SCH ×2 (09:00→21:50)
[2017-05-05] MEDS: CALCITRIOL 0.25 MCG CAP PO SCH (09:43)
[2017-05-05] MEDS: LACTOBACILLUS ACIDOPHILUS TAB PO SCH ×3 (09:43→18:28)
[2017-05-05] MEDS: METOPROLOL TARTRATE 25 MG TAB PO SCH ×2 (09:43→21:48)
[2017-05-05] MEDS: APIXABAN 2.5 MG TABLET PO SCH (09:44)
[2017-05-05] MEDS: DILTIAZEM-CD 180 MG CAP ER PO SCH (09:44)
[2017-05-05] MEDS: CHOLECALCIFEROL (VIT D3) 400 UNIT TAB PO SCH ×2 (09:44→21:49)
[2017-05-05] MEDS: MULTIVITAMINS/MINERALS THERAPEUTIC TAB PO SCH ×2 (09:44→21:48)
[2017-05-05] MEDS: DIGOXIN 0.125 MG TAB PO SCH (09:44)
[2017-05-05] MEDS: PANTOPRAZOLE SOD 20 MG DELAYED RELEASE TAB PO SCH ×2 (09:44→21:48)
--- NOTE | 2017-05-05 09:49 | HHI.PR ---
Subjective Remarks looks more alert today. in no distress. denies abdominal pain. d/w the RN and no acute issues over night. d/w ST at the bedside. Objective Vitals Vital Signs Date Time Temp Pulse Resp B/P (MAP) Pulse Ox O2 Delivery O2 Flow Rate FiO2 05/05/17 08:02 98.7 87 20 148/67 (94) 95 05/05/17 04:25 98.1 72 18 146/66 (92) 98 05/05/17 04:00 Nasal Cannula 3.00 05/05/17 00:00 Nasal Cannula 3.00 05/04/17 23:37 98.0 72 18 132/60 (84) 98 05/04/17 22:33 95 Nasal Cannula 3.00 05/04/17 20:12 98.5 89 18 124/60 (81) 98 05/04/17 20:00 87 05/04/17 20:00 Nasal Cannula 3.00 05/04/17 17:43 64 05/04/17 16:02 98.5 74 20 134/60 (84) 94 05/04/17 15:43 99 Nasal Cannula 4.00 I/O 05/04/17 05/04/17 05/04/17 05/05/17 05/05/17 05/05/17 07:00 15:00 23:00 07:00 15:00 23:00 Intake Total 107 ml 240 ml 1360 ml Output Total 0 ml 1500 ml 0 ml 900 ml Balance 107 ml -1500 ml 240 ml 460 ml Intake Oral 0 ml 240 ml 360 ml IV Total 107 ml 1000 ml Output Urine Total 0 ml 0 ml 600 ml Stool Total 0 ml 300 ml Hemodialysis 1500 ml Bladder Scan Volume Amount 274 ml 298 ml 0 ml 274 ml 280 ml Result Diagram: 05/04/17 0549 05/04/17 0549 Imaging Last Impressions Abdomen X-Ray 05/04/17 0600 Signed Impressions: Service Date/Time: May 06:03 - CONCLUSION: Contrast through to the rectum. Basically stable dilatation of the proximal colon Duncan Delgado MD Enema w/Water Soluble 05/02/17 0000 Signed Impressions: Service Date/Time: Tuesday, May 02, 2017 08:02 - CONCLUSION: 1. Limited suboptimal exam. The cecum and right colon could not be opacified despite repeated attempts. 2. Residual stool and mild to moderate diverticulosis. Guevara Crowell MD Abdomen/Pelvis CT 05/02/17 0000 Signed Impressions: Service Date/Time: Tuesday, May 02, 2017 19:58 - CONCLUSION: 1. Nonspecific bowel gas pattern remains with contrast noted in the colon from the recent Gastrografin enema. The cecum remains distended. A rectal catheter is present. 2. No free air or fluid. 3. Small pleural effusions with mild consolidation in the lung bases. 4. Stable small adrenal masses likely representing adenomas. 5. Small nonobstructing left renal calculus. Guevara Crowell MD Catheter Placement X-Ray 05/01/17 0000 Signed Impressions: Service Date/Time: Monday, May 01, 2017 11:45 - CONCLUSION: Uncomplicated line placement as above. Brian Mcmanus MD Chest X-Ray 04/23/17 0600 Signed Impressions: Service Date/Time: Sunday, April 23, 2017 04:17 - CONCLUSION: 1. Suboptimal single view study with mild motion artifact. 2. No significant change in the bibasilar opacities. Guevara Crowell MD Renal Ultrasound 04/20/17 0000 Signed Impressions: Service Date/Time: April 15:07 - CONCLUSION: 1. There is no hydronephrosis. 2. Stable 8mm nonobstructing left renal stone. Duncan Avery MD Head CT 04/19/17 0702 Signed Impressions: Service Date/Time: Wednesday, April 19, 2017 07:29 - CONCLUSION: 1. Cerebral white matter hypodensity characteristic of chronic microvascular ischemic disease. 2. No evidence of acute infarct, hemorrhage, mass or edema. Renato Coughlin MD Objective Remarks GENERAL: elderly female, in no apparent distress. CARDIOVASCULAR: Regular rate and regular rhythm without murmurs, gallops, or rubs. RESPIRATORY: Clear to auscultation. Breath sounds equal bilaterally. No wheezes , rales, or rhonchi. GASTROINTESTINAL: Abdomen soft, non-tender, nondistended. Normal, active bowel sounds MUSCULOSKELETAL: Extremities without clubbing, cyanosis, or edema. NEURO: lethargic but easily arousable. Procedures Vas-Cath Medications and IVs Current Medications Propofol 100 ml @ As Directed STK-MED ONCE .ROUTE ; Start 04/19/17 at 06:24; Stop 04/19/17 at 06:25; Status DC Etomidate (Amidate Inj) 20 mg ONCE ONCE IVP Last administered on 04/19/17 06 :20; Start 04/19/17 at 06:30; Stop 04/19/17 at 06:31; Status DC Succinylcholine Chloride (Quelicin Inj) 100 mg ONCE ONCE IV PUSH Last administered on 04/19/17 06:20; Start 04/19/17 at 06:30; Stop 04/19/17 at 06 :31; Status DC Albuterol/ Ipratropium (Duoneb Neb) 1 ampule Q15M INH Last administered on 07:07; Start 04/19/17 at 06:30; Stop 04/19/17 at 07:01; Status DC Sodium Chloride (NS Flush) 2 ml UNSCH PRN IVF FLUSH AFTER USING IV ACCESS; Start 04/19/17 at 06:30; Stop 04/19/17 at 08:59; Status DC Propofol 100 ml @ 0 mls/hr TITRATE PRN IV Ordered RASS Last administered on 06:30; Start 04/19/17 at 06:30; Stop 04/19/17 at 08:59; Status DC Sodium Chloride 1,000 ml @ 999 mls/hr BOLUS ONCE IV Last administered on 07:15; Start 04/19/17 at 07:15; Stop 04/19/17 at 08:15; Status DC Sodium Chloride 1,000 ml @ 999 mls/hr BOLUS ONCE IV Last administered on 07:30; Start 04/19/17 at 07:30; Stop 04/19/17 at 08:30; Status DC Propofol 100 ml @ 3.6 mls/hr TITRATE PRN IV SEDATION Last administered on 02:09; Start 04/19/17 at 08:30; Stop 04/22/17 at 11:35; Status DC Sodium Chloride (NS Flush) 2 ml UNSCH PRN IV FLUSH FLUSH AFTER USING IV ACCESS Last administered on 05/05/17 05:01; Start 04/19/17 at 08:30 Sodium Chloride (NS Flush) 2 ml BID IV FLUSH Last administered on 05/04/17 21: 41; Start 04/19/17 at 09:00 Albuterol/ Ipratropium (Duoneb Neb) 1 ampule Q6HR NEB NEB Last administered on 04/22/17 08:39; Start 04/19/17 at 10:00; Stop 04/22/17 at 11:34; Status DC Albuterol/ Ipratropium (Duoneb Neb) 1 ampule Q2HR NEB PRN INH SHORTNESS OF BREATH Last administered on 04/20/17 12:34; Start 04/19/17 at 08:30 Chlorhexidine Gluconate (Peridex 0.12% Liq) 15 ml BID@08,20 MT Last administered on 04/22/17 10:04; Start 04/19/17 at 20:00; Stop 04/22/17 at 18 :11; Status DC Pantoprazole Sodium (Protonix Inj) 40 mg DAILY IV PUSH Last administered on 09:53; Start 04/19/17 at 09:00; Stop 04/23/17 at 16:47; Status DC Miscellaneous Information 1 [id number] ; Start 04/19/17 at 08:30 Chlorhexidine Gluconate (Chlorhexidine 2% Cloth) Taper DAILY@04 TOP Last administered on 04/26/17 04:00; Start 04/20/17 at 04:00; Stop 04/16/18 at 03 :59 Chlorhexidine Gluconate (Chlorhexidine 2% Cloth) 3 pack UNSCH PRN TOP HYGIENIC CARE; Start 04/19/17 at 08:30 Methylprednisolone Sodium Succinate (SoluMEDROL INJ) 60 mg Q6H IV PUSH Last administered on 04/22/17 09:58; Start 04/19/17 at 09:00; Stop 04/22/17 at 11 :35; Status DC Cefepime HCl 2000 mg/Sodium Chloride 100 ml @ 200 mls/hr Q12H IV Last administered on 04/20/17 07:53; Start 04/19/17 at 09:00; Stop 04/20/17 at 13 :58; Status DC Azithromycin 500 mg/Sodium Chloride 250 ml @ 250 mls/hr Q24H IV Last administered on 04/23/17 15:28; Start 04/19/17 at 14:00; Stop 04/23/17 at 16 :47; Status DC Sodium Chloride 1,000 ml @ 999 mls/hr BOLUS ONCE IV Last administered on 11:00; Start 04/19/17 at 13:30; Stop 04/19/17 at 14:30; Status DC Sodium Chloride 1,000 ml @ 999 mls/hr BOLUS ONCE IV ; Start 04/19/17 at 13:30 ; Stop 04/19/17 at 14:30; Status DC Apixaban (Eliquis) 2.5 mg BID PO Last administered on 05/04/17 21:38; Start 04/19/17 at 21:00 Atorvastatin Calcium (Lipitor) 20 mg HS PO Last administered on 05/04/17 21:39 ; Start 04/19/17 at 21:00 Calcitriol (Rocaltrol) 0.25 mcg DAILY PO Last administered on 05/04/17 08:12; Start 04/20/17 at 09:00 Levothyroxine Sodium (Synthroid) 125 mcg DAILY@0600 PO Last administered on 05:00; Start 04/20/17 at 06:00 Metoprolol Tartrate (Lopressor) 50 mg BID PO Last administered on 04/28/17 09 :20; Start 04/19/17 at 21:00; Stop 04/28/17 at 14:50; Status DC Cholecalciferol (Vitamin D3) 400 units BID PO Last administered on 05/04/17 21 :38; Start 04/19/17 at 21:00 Influenza Virus Vaccine (Flu (Quadrivalent) Vaccine Inj) 0.5 ml ONCE ONCE IM Last administered on 04/20/17 09:56; Start 04/20/17 at 10:00; Stop 04/20/17 at 10:01; Status DC Sodium Chloride 1,000 ml @ 75 mls/hr [id number] IV Last administered on 21:20; Start 04/19/17 at 15:00; Stop 04/22/17 at 11:35; Status DC Insulin Aspart (NovoLOG SUPPLEMENTAL SCALE) 1 Q4H SQ Last administered on 04/29 20:04; Start 04/19/17 at 17:00; Stop 04/29/17 at 20:58; Status DC Bumetanide (Bumex Inj) 1 mg STK-MED ONCE .ROUTE ; Start 04/20/17 at 11:08; Stop 04/20/17 at 11:09; Status DC Bumetanide (Bumex Inj) 1 mg NOW ONCE IV PUSH Last administered on 04/20/17 15:46; Start 04/20/17 at 13:15; Stop 04/20/17 at 13:16; Status DC Cefepime HCl 2000 mg/Sodium Chloride 100 ml @ 200 mls/hr DAILY IV Last administered on 04/27/17 10:19; Start 04/21/17 at 09:00; Stop 04/27/17 at 11 :15; Status DC Chlorhexidine Gluconate (Peridex 0.12% Liq) 15 ml BID@08,20 MT Last administered on 05/04/17 08:00; Start 04/20/17 at 20:00 Midazolam HCl 100 ml @ 2 mls/hr TITRATE PRN IV SEDATION; Start 04/20/17 at 14: 30; Stop 04/22/17 at 11:35; Status DC Fentanyl Citrate 250 ml @ 5 mls/hr TITRATE PRN IV SEDATION Last administered on 04/20/17 20:36; Start 04/20/17 at 14:30; Stop 04/22/17 at 11:35; Status DC Hydralazine HCl (Apresoline Inj) 20 mg Q4H PRN IV PUSH SYS BP GREATER THAN 170 MMHG Last administered on 04/22/17 18:02; Start 04/21/17 at 11:30 Insulin Detemir (Levemir Inj) 5 units Q12HR SQ Last administered on 05/01/17 09:00; Start 04/21/17 at 11:30; Stop 05/01/17 at 10:54; Status DC Bumetanide (Bumex Inj) 2 mg STK-MED ONCE .ROUTE ; Start 04/21/17 at 13:31; Stop 04/21/17 at 13:32; Status DC Lorazepam (Ativan Inj) 2 mg STK-MED ONCE .ROUTE ; Start 04/21/17 at 13:51; Stop 04/21/17 at 13:52; Status DC Morphine Sulfate (Morphine Inj) 2 mg ONCE ONCE IV PUSH Last administered on 14:15; Start 04/21/17 at 14:15; Stop 04/21/17 at 14:16; Status DC Lorazepam (Ativan Inj) 1 mg ONCE ONCE IV PUSH Last administered on 04/21/17 14:24; Start 04/21/17 at 14:15; Stop 04/21/17 at 14:16; Status DC Bumetanide (Bumex Inj) 2 mg NOW ONCE IV PUSH Last administered on 04/21/17 14:24; Start 04/21/17 at 14:15; Stop 04/21/17 at 14:16; Status DC Morphine Sulfate (Morphine Inj) 4 mg STK-MED ONCE .ROUTE ; Start 04/21/17 at 14 :08; Stop 04/21/17 at 14:09; Status DC Albuterol/ Ipratropium (Duoneb Neb) 1 ampule Q6HR NEB NEB Last administered on 04/26/17 11:48; Start 04/22/17 at 16:00; Stop 04/26/17 at 15:59; Status DC Methylprednisolone Sodium Succinate (SoluMEDROL INJ) 40 mg Q8H IV PUSH Last administered on 04/23/17 09:53; Start 04/22/17 at 17:00; Stop 04/23/17 at 16 :47; Status DC Morphine Sulfate (Morphine Inj) 1 mg Q4H PRN IV PAIN SCALE 1 TO 10 Last administered on 04/23/17 23:29; Start 04/22/17 at 18:00; Stop 05/02/17 at 08 :55; Status DC Morphine Sulfate (Morphine Inj) 1 mg Q4H PRN IV PAIN 1-10; Start 04/22/17 at 18:15; Stop 04/22/17 at 18:15; Status DC Diltiazem HCl (Cardizem Inj) 10 mg NOW ONCE IV Last administered on 12:31; Start 04/23/17 at 12:15; Stop 04/23/17 at 12:16; Status DC Diltiazem HCl (Cardizem Cd) 300 mg NOW ONCE PO Last administered on 12:15; Start 04/23/17 at 12:15; Stop 04/23/17 at 12:16; Status DC Diltiazem HCl (Cardizem Cd) 300 mg DAILY PO Last administered on 04/24/17 08: 23; Start 04/24/17 at 09:00; Stop 04/24/17 at 13:07; Status DC Gabapentin (Neurontin) 100 mg BID PO Last administered on 04/24/17 08:29; Start 04/23/17 at 13:00; Stop 04/24/17 at 09:22; Status DC Methylprednisolone Sodium Succinate (SoluMEDROL INJ) 40 mg Q12H IV PUSH Last administered on 04/27/17 08:31; Start 04/23/17 at 21:00; Stop 04/27/17 at 11 :15; Status DC Diltiazem HCl (Cardizem Inj) 10 mg STAT ONCE IV Last administered on 22:14; Start 04/23/17 at 22:15; Stop 04/23/17 at 22:16; Status DC Metoprolol Tartrate (Lopressor Inj) 5 mg Q5M PRN IV PUSH HR>100 Last administered on 04/26/17 08:28; Start 04/24/17 at 02:15 Diltiazem HCl (Cardizem Inj) 15 mg ONCE ONCE IV Last administered on 10:10; Start 04/24/17 at 09:15; Stop 04/24/17 at 09:16; Status DC Gabapentin (Neurontin) 100 mg BID PO Last administered on 05/01/17 09:24; Start 04/24/17 at 21:00; Stop 05/01/17 at 11:56; Status DC Multivitamins/ Minerals Therapeutic (Theragran M Tab) 1 tab BID PO Last administered on 05/04/17 21:38; Start 04/24/17 at 10:00 Pantoprazole Sodium (Protonix) 20 mg BID PO Last administered on 05/04/17 21: 39; Start 04/24/17 at 09:00 Diltiazem HCl (Cardizem Cd) 360 mg DAILY PO Last administered on 05/04/17 08: 13; Start 04/25/17 at 09:00 Diltiazem HCl (Cardizem) 60 mg ONCE ONCE PO Last administered on 04/24/17 14 :37; Start 04/24/17 at 13:15; Stop 04/24/17 at 13:35; Status DC Digoxin (Lanoxin) 0.125 mg ONCE ONCE PO Last administered on 04/26/17 09:00 ; Start 04/26/17 at 09:00; Stop 04/26/17 at 09:12; Status DC Digoxin (Lanoxin) 0.125 mg DAILY PO Last administered on 05/04/17 08:13; Start 04/27/17 at 09:00 Amoxicillin/ Clavulanate Potassium (Augmentin) 875 mg Q12HR PO Last administered on 05/04/17 08:12; Start 04/27/17 at 12:00; Stop 05/04/17 at 11: 59; Status DC Metronidazole (Flagyl) 500 mg Q8HR PO Last administered on 05/04/17 05:24; Start 04/27/17 at 14:00; Stop 05/04/17 at 13:59; Status DC Prednisone (Deltasone) 50 mg DAILY PO Last administered on 04/30/17 09:03; Start 04/28/17 at 09:00; Stop 04/30/17 at 11:08; Status DC Sodium Chloride 1,000 ml @ 42 mls/hr [id number] IV Last administered on 02:47; Start 04/27/17 at 15:00 Metoprolol Tartrate (Lopressor) 75 mg BID PO Last administered on 05/04/17 21: 38; Start 04/28/17 at 21:00 Insulin Aspart (NovoLOG SUPPLEMENTAL SCALE) 1 ACHS SQ Last administered on 08:00; Start 04/29/17 at 21:00; Stop 05/01/17 at 10:54; Status DC Cyclobenzaprine HCl (Flexeril) 5 mg Q8HR PO Last administered on 05/01/17 05: 33; Start 04/30/17 at 14:00; Stop 05/01/17 at 11:56; Status DC Miscellaneous (Pill Splitter) 1 ea UNSCH PRN OTHER SEE LABEL COMMENTS; Start 04/30/17 at 11:00 Sodium Chloride 1,000 ml @ 0 mls/hr Q0M PRN OTHER For Prime & Rinse Back Last administered on 05/02/17 11:00; Start 04/30/17 at 13:26 Heparin Sodium (Porcine) (Heparin Inj) 8,000 units UNSCH PRN IV FLUSH WITH DIALYSIS; Start 04/30/17 at 13:30 Sodium Chloride 1,000 ml @ 200 mls/hr Q5H PRN IV WITH DIALYSIS; Start at 13:26 Sodium Chloride 1,000 ml @ 0 mls/hr Q0M PRN OTHER WITH DIALYSIS; Start at 13:26 Mannitol (Mannitol Inj) 12.5 gm UNSCH PRN IV WITH DIALYSIS; Start 04/30/17 at 13:30 Albumin Human 100 ml @ 60 mls/hr UNSCH PRN IV WITH DIALYSIS; Start 04/30/17 at 13:30 Sodium Chloride (NS Flush) 5 ml UNSCH PRN IV FLUSH WITH DIALYSIS; Start at 13:30 Heparin Sodium (Porcine) (Heparin Inj) UNSCH PRN .XX WITH DIALYSIS Last administered on 05/02/17 11:00; Start 04/30/17 at 13:30 Gentamicin Sulfate (Gentamicin (Dialysis) Inj) 20 mg UNSCH PRN OTHER WITH DIALYSIS Last administered on 05/04/17 12:36; Start 04/30/17 at 13:30 Ondansetron HCl (Zofran Inj) 4 mg UNSCH PRN IV PUSH WITH DIALYSIS; Start 04/30 at 13:30 Acetaminophen (Tylenol) 650 mg UNSCH PRN PO for headach, pain, temp > 101F; Start 04/30/17 at 13:30 Diphenhydramine HCl (Benadryl) 25 mg UNSCH PRN PO for hives/itching/anaphylaxis ; Start 04/30/17 at 13:30 Nitroglycerin (Nitrostat Sl) 0.4 mg UNSCH PRN SL CHEST PAIN; Start 04/30/17 at 13:30 Clonidine (Catapres) 0.1 mg UNSCH PRN PO for BP > 180/100 X 2 readings; Start 04/30/17 at 13:30 Epoetin Temo (Epogen Inj) 10,000 units UNSCH PRN IV PUSH WITH DIALYSIS Last administered on 05/04/17 12:37; Start 04/30/17 at 13:30 Gelatin (Gelfoam 12 Mm/7 Mm Top) 1 foam UNSCH PRN TOP SEE LABEL COMMENTS; Start 04/30/17 at 13:30 Insulin Detemir (Levemir Inj) 10 units Q12HR SQ Last administered on 05/04/17 21:40; Start 05/01/17 at 21:00 Insulin Aspart (NovoLOG SUPPLEMENTAL SCALE) 1 ACHS SLIDING SCALE SQ ; Start at 12:00; Stop 05/02/17 at 08:55; Status DC Sodium Chloride (NS Flush) UNSCH PRN IV FLUSH SEE PROTOCOL; Start 05/01/17 at 12:15 Heparin Sodium (Porcine) (Heparin Inj) UNSCH PRN IV FLUSH SEE PROTOCOL; Start 05/01/17 at 12:15 Heparin Sodium (Porcine) (Heparin Inj) 2,200 units STK-MED ONCE SQ Last administered on 05/01/17 12:03; Start 05/01/17 at 12:24; Stop 05/01/17 at 12 :25; Status DC Sodium Chloride 500 ml @ 500 mls/hr BOLUS ONCE IV Last administered on 13:38; Start 05/01/17 at 14:00; Stop 05/01/17 at 14:59; Status DC Insulin Aspart (NovoLOG SUPPLEMENTAL SCALE) 1 ACHS SLIDING SCALE SQ Last administered on 05/04/17 21:40; Start 05/02/17 at 12:00 Morphine Sulfate (Morphine Inj) 0.5 mg Q4H PRN IV SEE LABEL COMMENTS; Start at 10:00 Diatrizoate Meglum/ Diatrizoate Sod ( Gastroview Liq) 1,200 ml STK-MED ONCE RECTAL Last administered on 05/02/17 15:42; Start 05/02/17 at 15:42; Stop 05/02/17 at 15:47; Status DC Diatrizoate Meglum/ Diatrizoate Sod ( Gastroview Liq) 18 ml ONCE ONCE PO ; Start 05/02/17 at 18:20; Stop 05/02/17 at 18:49; Status DC Metoclopramide HCl (Reglan Inj) 5 mg Q8HR IV PUSH Last administered on 05:00; Start 05/03/17 at 22:00 Lactobacillus Acidophilus (Lactinex) 1 tab TID PO Last administered on 16:34; Start 05/03/17 at 18:00 A/P Problem List: (1) Acute hypoxemic respiratory failure ICD Code: J96.01 - Acute respiratory failure with hypoxia Status: Acute (2) Acute metabolic encephalopathy ICD Code: G93.41 - Metabolic encephalopathy (3) Pneumonia ICD Code: J18.9 - Pneumonia, unspecified organism Status: Acute (4) COPD with acute exacerbation ICD Code: J44.1 - Chronic obstructive pulmonary disease with (acute) exacerbation (5) Diabetes ICD Code: E11.9 - Type 2 diabetes mellitus without complications Status: Acute (6) Hypertension ICD Code: I10 - Hypertension Status: Acute (7) Acute on chronic kidney failure ICD Code: N17.9 - Acute kidney failure, unspecified; N18.9 - Chronic kidney disease, unspecified Assessment and Plan A/P Acute metabolic encephalopathy. Recurrent but improving at the moment - CT of the head negative for acute findings - Most likely secondary to worsening renal failure with a combination of sedating medication. - hold sedating medication. - EEG without seizure Speech therapy for cognitive evaluation Acute respiratory failure-resolved. Pneumonia COPD with exacerbation Restrictive lung disease - Extubated 04/21. BiPAP use when necessary - DuoNeb every 4 hours scheduled and when necessary - treated with antibiotics. Chronic A. fib - Rate controlled with metoprolol, Diltiazem, and digoxin. - Continue Eliquis Acute on chronic kidney disease -Hemodialysis per nephrology Severe sepsis Pneumonia - Blood sputum and urine culture, all negative to date -finished the course of antibiotics. -consulted ST for swallow evaluation Hypothyroidism Type 2 diabetes - Continue levothyroxine, sliding-scale insulin - SSI. Levemir Lower back pain -Secondary to muscle spasm. Patient was initially put on Flexeril but she is too sedated discontinued Flexeril. Ileus -Clear liquid, IV Reglan, Colon tube to gravity (red tube) GI and CRS following. NGT discontinued. Out of bed and increase activity as tolerated -GI and colorectal surgery following. Leukocytosis -thought to be due to steroid use. She continues to remain afebrile. Will need to continue to monitor closely. C. difficile negative. PROPH: - Bilateral lower extremity SCDs, Eliquis, Protonix Problem Qualifiers (1) Pneumonia: (2) Diabetes: Daniela Bunch MD May 05, 2017 09:49
[2017-05-05] MEDS: INSULIN DETEMIR 100 UNITS/ML VIAL SQ SCH ×2 (09:54→22:36)
[2017-05-05] MEDS: INSULIN ASPART SUPPLEMENTAL SCALE SQ SCH ×4 (09:55→22:36)
--- NOTE | 2017-05-05 13:27 | HHI.NPPN ---
Subjective History of Present Illness Patient is a 82-year-old with sepsis, COPD, intubation, diabetes, acute renal failure and chronic kidney disease. Additional Remarks Patient is confused, and now with nasal cannula Objective Data Data Vital Signs Date Time Temp Pulse Resp B/P (MAP) Pulse Ox O2 Delivery O2 Flow Rate FiO2 05/05/17 12:02 97.6 70 20 162/70 (100) 91 05/05/17 08:02 98.7 87 20 148/67 (94) 95 05/05/17 04:25 98.1 72 18 146/66 (92) 98 05/05/17 04:00 Nasal Cannula 3.00 05/05/17 00:00 Nasal Cannula 3.00 05/04/17 23:37 98.0 72 18 132/60 (84) 98 05/04/17 22:33 95 Nasal Cannula 3.00 05/04/17 20:12 98.5 89 18 124/60 (81) 98 05/04/17 20:00 87 05/04/17 20:00 Nasal Cannula 3.00 05/04/17 17:43 64 05/04/17 16:02 98.5 74 20 134/60 (84) 94 05/04/17 15:43 99 Nasal Cannula 4.00 -: 05/04/17 0549 05/04/17 0549 Physical Exam General Appearance: No Acute Distress, Comfortable, Obese Neck Neck Exam: Neck Supple Pulmonary Resp Exam: Decreased Bases Cardiology CV Exam: Arrhythmia Gastrointestinal/Abdomen GI Exam: Bowel Sounds Hypoactive Extremeties Extremities Exam: Trace Edema Neurologic Neuro Exam: Alert, Awake Psychiatric Psych Exam: Appropriate Responses Assessment/Plan Problem List: (1) Acute on chronic renal insufficiency ICD Codes: N28.9 - Disorder of kidney and ureter, unspecified; N18.9 - Chronic kidney disease, unspecified Status: Acute Plan: Patient is in acute renal failure and had chronic kidney disease ESRD no recovery need to hold Eliquis and give heparin place PermCath next Monday may need AVF as well Next hemodialysis Sat . GI and colorectal surgery following the patient (2) Hypertension ICD Codes: I10 - Hypertension Status: Acute Plan: Blood pressure was low (3) Diabetes ICD Codes: E11.9 - Type 2 diabetes mellitus without complications Status: Acute Plan: Continue to monitor (4) COPD with acute exacerbation ICD Codes: J44.1 - Chronic obstructive pulmonary disease with (acute) exacerbation Plan: extubated Problem Qualifiers (1) Diabetes: Tonja Grewal MD May 05, 2017 13:26
[2017-05-05] MEDS: HEPARIN SODIUM - SQ 10,000 UNITS/ML VIAL SQ SCH ×2 (14:00→21:50)
[2017-05-05] MEDS: RESP: ALBUTEROL 2.5 MG/IPRATROPIUM 0.5 MG NEB (PRN) INH (16:41)
[2017-05-05] MEDS: ATORVASTATIN 20 MG TAB PO SCH (21:48)
[2017-05-05 22:55] LABS: BLOOD GAS BASE EXCESS 1.6 mmol/L (-2-2); BLOOD GAS CARBOXYHEMOGLOBIN 2.1 % (0-4); BLOOD GAS HCO3 28 mmol/L (22-26); BLOOD GAS METHEMOGLOBIN 0.8 % (0-2); BLOOD GAS O2 HGB SATURATION 87 % (90-100); BLOOD GAS OXYGEN CONTENT 8.4 Vol % (12.0-20.0); BLOOD GAS PCO2 68 mmHg (38-42); BLOOD GAS PO2 62 mmHg (61-120); BLOOD GAS TOTAL HGB 6.8 G/DL (12.0-16.0); TEMP CORR TO 98.6
[2017-05-05 22:56] LABS: CRITICAL VALUE YES; DRAW SITE LT RADIAL; FIO2 50 %; NUMBER OF ARTERIAL PUNCTURES 1; OXYGEN DEVICE BiPAP; STAT YES; ULNAR PULSE PRESENT; VENT SETTINGS IPAP20/EPAP5
[2017-05-05] MEDS ORDERED: ETOMIDATE 40 MG/20 ML VIAL ONE (23:33)
[2017-05-05] MEDS ORDERED: SUCCINYLCHOLINE CHLORIDE 200 MG/10 ML VIAL ONE (23:33)
--- NOTE | 2017-05-05 23:49 | HHI.CCPN ---
Subjective Remarks/Hospital Course The patient is an 82 year old female past with past medical history significant for hypertension, atrial fibrillation, diabetes mellitus, obesity, hypothyroidism, hyperlipidemia, diabetic neuropathy, who was seen in ED 3 days ago bronchospasm. She has COPD/Asthma and restrictive lung disease related to her obesity. Patient was treated for reactive airway disease, given breathing treatments and was discharged on as needed inhalers. Patient was brought in today by her as she was having shortness of breath and on the way to the ED when she slumped over in the car. In the emergency department she showed agonal breathing, she was intubated for airway protection emergently. Patient was given Solu-Medrol and breathing treatments and was placed on the mechanical ventilation. Chest x-ray showed bilateral infiltrates concerning for pneumonia. CT of the head was negative. I evaluated the patient in the ICU. She is on minimal sedation and mild attempts to wake up and intermittently tries to follows commands. She still on high oxygen requirement FiO2 is 60% with a PEEP of 5. I have increased the PEEP to 10. I have started the patient on scheduled IV Solu-Medrol, DuoNeb breathing treatments, cefepime and azithromycin for probable pneumonia. 04/20 Remains intubated, off sedation following commands. Currently FiO2 had been weaned to 40%. Urine output 950 ml since admission. Start SBT, Bumex 1 mg IV x1. 04/21: Tolerating CPAP better today, Appears calm following commands. UO adequate, though creat increasing. Cultures remain negative 04/22: Extubated yesterday required BiPAP overnight. Currently on nasal cannula slightly tachypneic but able to talk in full sentences maintaining oxygen saturation 04/23: Breathing more comfortably today on nasal cannula. Daughter At the bedside. Urine output adequate, creatinine has slightly improved 05/05: Rapid response team was called due to patient's altered mental status and hypoxemia. She was immediately transferred to ICU with a blood gas showing severe hypercarbic acidosis and was immediately intubated. She also became slightly hypotensive requiring a central line placement and initiation of vasopressor therapy Objective Vital Signs Date Time Temp Pulse Resp B/P (MAP) Pulse Ox O2 Delivery O2 Flow Rate FiO2 05/05/17 21:12 97.5 80 16 151/67 (95) 96 05/05/17 08:00 Nasal Cannula 3.00 05/03/17 09:49 93 Intake and Output 05/05/17 05/05/17 05/06/17 08:00 16:00 00:00 Intake Total 1360 ml 120 ml Output Total 900 ml Balance 460 ml 120 ml Result Diagram: 05/04/17 0549 05/04/17 0549 Other Results Laboratory Tests Test 05/05/17 22:39 Blood Gas Puncture Site LT RADIAL Blood Gas Patient Temperature 98.6 Blood Gas HCO3 28 mmol/L (22-26) Blood Gas Base Excess 1.6 mmol/L (-2-2) Blood Gas Oxygen Saturation 87 % (90-100) Arterial Blood pH 7.24 (7.380-7.420) Arterial Blood Partial Pressure CO2 68 mmHg (38-42) Arterial Blood Partial Pressure O2 62 mmHg (61-120) Arterial Blood Oxygen Content 8.4 Vol % (12.0-20.0) Arterial Blood Carboxyhemoglobin 2.1 % (0-4) Arterial Blood Methemoglobin 0.8 % (0-2) Blood Gas Hemoglobin 6.8 G/DL (12.0-16.0) Oxygen Delivery Device BiPAP Blood Gas Ventilator Setting IPAP20/EPAP5 Blood Gas Inspired Oxygen 50 % Imaging Chest x-ray shows bilateral infiltrates predominantly right upper lobe and left lower lobe CT of the head no acute findings Objective Remarks GEN: Patient is sedated and intubated, morbidly obese Head is normocephalic atraumatic. ENT: Oral cavity is dry, intubated Neck: No nuchal rigidity. No thyromegaly. Cardiovascular: Regular rate and rhythm without murmurs, gallops, or rubs. Lungs: Decreased breath sounds bilaterally with few scattered wheezes Abdomen: Abdomen morbidly obese, soft nontender. No guarding, rebound, or rigidity. Extremities: No clubbing, cyanosis, or edema. Neurologic: Sedated and intubated, pupils are symmetrical 3 mm and reactive to light bilaterally Procedures Vas-Cath Centerline placement Side: Left Location: Jugular A/P Assessment and Plan NEURO: Acute metabolic encephalopathy Hypercarbic - Propofol for vent synchrony while intubated - CT of the head negative for acute findings, holding gabapentin RESP: Acute respiratory failure Pneumonia COPD with exacerbation Restrictive lung disease - Extubated 04/21. Reintubated 05/05 - DuoNeb every 4 hours scheduled and when necessary - Sufficient Ventilation, no steroids at this time -No antibiotics CV: Chronic A. fib Transient hypotension -Centerline in place, start Levophed to keep MAP above 65 - Rate controlled - Continue Eliquis GI: - ADA renal diet on hold while intubated. IV Pepcid prophylaxis : Acute on chronic kidney disease - Nephrology -Dr. Grewal - Monitor renal function closely. Nelson catheter. - Hemodialysis per nephrology. ID: Severe sepsis resolved Pneumonia - Blood sputum and urine culture, all negative to date - Empiric cefepime and azithromycin for 7-10 days course complete HEME: - Monitor CBC, CMP, INR - Continue Eliquis ENDO: Hypothyroidism Type 2 diabetes - Continue levothyroxine, sliding-scale insulin - SSI. Levemir PROPH: - Bilateral lower extremity SCDs, Eliquis, Pepcid LINES: -Left IJ central line placed 05/05 Critical Care: The total critical care time was 35 minutes. Time to perform other separately billable procedures was not included in the critical care time. Noah Stevens MD May 05, 2017 23:49
[2017-05-05] MEDS ORDERED: PROPOFOL 500 MG/50 ML INJ 50 ML ONE (23:56)
[2017-05-06] VITALS (21 sets, daily range): BP systolic 107–157; BP diastolic 51–74; PULSE 52–112; RESP 11–22; TEMP 97.6–100.4; O2SAT 98–100
[2017-05-06] MEDS ORDERED: ETOMIDATE 20 MG/10 ML VIAL IV PUSH ONE (00:15)
[2017-05-06] MEDS ORDERED: SUCCINYLCHOLINE CHLORIDE 100 MG/5 ML SYRINGE IV PUSH ONE (00:15)
[2017-05-06] MEDS ORDERED: PROPOFOL 1000 MG/100 ML IV PRN (00:15)
--- NOTE | 2017-05-06 00:30 | RADRPT ---
EXAM DATE/TIME: 05/05/2017 23:54 [facility] COMPARISON: CHEST SINGLE AP, April 23, 2017, 4:17. INDICATIONS : E-T Tube placement. MEDICAL HISTORY : Cardiovascular disease. Hypertension Diabetes mellitus type II. SURGICAL HISTORY : None. ENCOUNTER: Subsequent ACUITY: 3 weeks PAIN SCORE: Non-responsive. LOCATION: Bilateral chest FINDINGS: Single AP view of the chest. Endotracheal tube is in place with the tip 2.5 cm above the morgan. Righ t IJ central venous catheters in place with the tip at the cavoatrial junction. Hazy opacity is again seen in the right hemithorax unchanged. Mild blunting of the left costophrenic sulcus unchanged. Car diomediastinal silhouette enlargement unchanged. CONCLUSION: Endotracheal tube and right IJ dual-lumen central venous catheter in place. Mild hazy bilateral opaci ty indicating either parenchymal opacity or layering pleural effusion unchanged. No evidence of pneum othorax. Hussain Green MD on May 06, 2017 at 0:26 Board Certified Radiologist. This report was verified electronically.
[2017-05-06 01:02] LABS: BLOOD GAS BASE EXCESS 3.6 mmol/L (-2-2); BLOOD GAS CARBOXYHEMOGLOBIN 2.1 % (0-4); BLOOD GAS HCO3 28 mmol/L (22-26); BLOOD GAS METHEMOGLOBIN 0.8 % (0-2); BLOOD GAS O2 HGB SATURATION 96 % (90-100); BLOOD GAS OXYGEN CONTENT 9.7 Vol % (12.0-20.0); BLOOD GAS PCO2 44 mmHg (38-42); BLOOD GAS PO2 94 mmHg (61-120); BLOOD GAS TOTAL HGB 7.1 G/DL (12.0-16.0); CRITICAL VALUE NO; OXYGEN DEVICE VENTILATOR; TEMP CORR TO 98.6
[2017-05-06 01:03] LABS: DRAW SITE LT RADIAL; FIO2 50 %; NUMBER OF ARTERIAL PUNCTURES 1; STAT NO; ULNAR PULSE PRESENT; VENT SETTINGS PRVC/AC
[2017-05-06] MEDS: CHLORHEXIDINE GLUCONATE 2 % 1 PACK (2 CLOTHS) TOP SCH (01:52)
[2017-05-06] MEDS ORDERED: NOREPINEPHRINE 4 MG/4 ML AMP ONE (03:05)
[2017-05-06] MEDS ORDERED: NOREPINEPHRINE INJ 4 MG in SODIUM CHLOR 0.9% 250 ML INJ 246 ML IV PRN (03:30)
--- NOTE | 2017-05-06 03:56 | PD.PROCEDR ---
Procedure Note Procedure Endotracheal Intubation A time-out was completed verifying correct patient, procedure, site, positioning , and special equipment if applicable. The patient was placed in a flat position. Sedation was obtained using Etomidate 20mg. The patient was easily ventilated using an ambu bag. The [employer]/ MAC 4 BLADE was used and inserted into the oropharynx at which time there was a Grade 1 view of the vocal cords. A 8-greenlandic endotracheal tube was inserted and visualized going through the vocal cords. The stylette was removed. Colorimetric change was visualized on the CO2 meter. Breath sounds were heard in both lung morton equally. The endotracheal tube was placed at 23 cm, measured at the teeth. A chest x-ray was ordered to assess for pneumothorax and verify endotrachealtube placement. Estimated Blood Loss: 0 The patient tolerated the procedure well and there were no complications. Noah Stevens MD May 06, 2017 03:56
--- NOTE | 2017-05-06 03:57 | PD.PROCEDR ---
Procedure Note Procedure Centerline placement A time-out was completed verifying correct patient, procedure, site, positioning , and special equipment if applicable. The patient was placed in a dependent position appropriate for central line placement based on the vein to be cannulated. The patients left neck was prepped and draped in sterile fashion. 1 % Lidocaine was used to anesthetize the surrounding skin area. A triple lumen 9 [place] Cordis catheter was introduced into the the internal jugular vein using the Seldinger technique and under ultrasound guidance. The catheter was threaded smoothly over the guide wire and appropriate blood return was obtained. Each lumen of the catheter was evacuated of air and flushed with sterile saline. The catheter was then sutured in place to the skin and a sterile dressing applied. Perfusion to the extremity distal to the point of catheter insertion was checked and found to be adequate. Estimated Blood Loss: 1ml The patient tolerated the procedure well and there were no complications. Noah Stevens MD May 06, 2017 03:57
--- NOTE | 2017-05-06 04:33 | RADRPT ---
EXAM DATE/TIME: 05/06/2017 03:22 [facility] COMPARISON: CHEST SINGLE AP, May 05, 2017, 23:54. INDICATIONS : Central Line Placement MEDICAL HISTORY : Cardiovascular disease. Diabetes mellitus type II. Hypertension. SURGICAL HISTORY : None. ENCOUNTER: Subsequent ACUITY: 3 weeks PAIN SCORE: Non-responsive. LOCATION: Bilateral chest FINDINGS: Single AP view of the chest. Left IJ central venous catheter is in place. The catheter courses superi carroll into the region of the distal right internal jugular vein/right brachiocephalic vein. Right IJ d ual-lumen catheter and endotracheal tube remain in place. No evidence of pneumothorax. Hazy opacity i n the lungs unchanged. CONCLUSION: Left IJ central venous catheter courses superiorly in the region of the SVC with the tip in the regio n of distal right internal jugular vein or right brachiocephalic vein. This could be retracted 5 cm. No evidence of pneumothorax. Hussain Green MD on May 06, 2017 at 4:29 Board Certified Radiologist. This report was verified electronically.
[2017-05-06 05:12] LABS: AUTOMATED NEUTROPHIL # 10.5 TH/MM3 (1.8-7.7); BASOPHIL % 0.3 % (0.0-2.0); EOSINOPHIL # 0.1 TH/MM3 (0-0.4); EOSINOPHIL % 0.8 % (0.0-4.0); LYMPH % 6.9 % (9.0-44.0); LYMPHOCYTE # 0.9 TH/MM3 (1.0-4.8); MEAN CELL VOLUME 95.5 FL (80.0-100.0); MEAN CORPUSCULAR HEMOGLOBIN 29.8 PG (27.0-34.0); MEAN CORPUSCULAR HGB CONC 31.2 % (32.0-36.0); MONO % 10.1 % (0.0-8.0); NEUT % 81.9 % (16.0-70.0); PLATELET COUNT 164 TH/MM3 (150-450); RED BLOOD COUNT 2.02 MIL/MM3 (4.00-5.30); RED CELL DISTRIBUTION WIDTH 14.6 % (11.6-17.2); WHITE BLOOD COUNT 12.8 TH/MM3 (4.0-11.0)
[2017-05-06 05:17] LABS: HEMO FLAGS AUTO DIFF
[2017-05-06] MEDS: METOCLOPRAMIDE HCL 10 MG/2 ML VIAL IV PUSH SCH ×3 (05:17→22:00)
[2017-05-06 05:19] LABS: HEMATOCRIT 19.3 % (35.0-46.0)
[2017-05-06 05:40] LABS: BICARBONATE 27.7 MEQ/L (21.0-32.0); POTASSIUM 3.5 MEQ/L (3.5-5.1)
[2017-05-06] MEDS: LEVOTHYROXINE SODIUM 125 MCG TAB PO SCH (06:00)
[2017-05-06] MEDS: HEPARIN SODIUM - SQ 10,000 UNITS/ML VIAL SQ SCH ×3 (06:00→22:00)
[2017-05-06] MEDS ORDERED: ATROPINE SULFATE 1 MG/10 ML SYRINGE IV PUSH PRN (06:15)
[2017-05-06 06:51] LABS: BANDS 5 % (0-6); CORRECTED NUCLEATED RBC 4 /100 WBC (0-0); EOSINOPHILS 2 % (0-4); NEUTROPHIL # MANUAL DIFF 11.6 TH/MM3 (1.8-7.7); POLYS (SEG NEUTROPHILS) 86 % (16-70); WBC DIFF SAMPLE 100
[2017-05-06 06:52] LABS: PLATELET ESTIMATE SMEAR NORMAL (NORMAL); PLATELET MORPHOLOGY NORMAL (NORMAL); SCAN/DIFF FINAL DIFF MANUAL; STOMATOCYTES 1+ (NORMAL)
[2017-05-06] MEDS: INSULIN ASPART SUPPLEMENTAL SCALE SQ SCH ×3 (08:00→17:47)
[2017-05-06] MEDS: CHOLECALCIFEROL (VIT D3) 400 UNIT TAB PO SCH ×2 (09:00→20:13)
[2017-05-06] MEDS: CALCITRIOL 0.25 MCG CAP PO SCH (09:00)
[2017-05-06] MEDS: SODIUM CHLORIDE 0.9% FLUSH 10 ML FLUSH IV FLUSH SCH ×2 (09:00→20:12)
[2017-05-06] MEDS: MULTIVITAMINS/MINERALS THERAPEUTIC TAB PO SCH ×2 (09:00→20:13)
[2017-05-06] MEDS: LACTOBACILLUS ACIDOPHILUS TAB PO SCH ×3 (09:00→17:53)
[2017-05-06] MEDS: INSULIN DETEMIR 100 UNITS/ML VIAL SQ SCH ×2 (09:00→20:33)
[2017-05-06] MEDS ORDERED: PROPOFOL 1000 MG/100 ML INJ 100 ML IV PRN (09:15)
[2017-05-06] MEDS: LANSOPRAZOLE SOLUTAB 30 MG TAB NG SCH (09:15)
[2017-05-06] MEDS ORDERED: fentaNYL DRIP 250 ML IV PRN (09:15)
--- NOTE | 2017-05-06 09:19 | HHI.CCPN ---
Subjective Remarks/Hospital Course The patient is an 82 year old female past with past medical history significant for hypertension, atrial fibrillation, diabetes mellitus, obesity, hypothyroidism, hyperlipidemia, diabetic neuropathy, who was seen in ED 3 days ago bronchospasm. She has COPD/Asthma and restrictive lung disease related to her obesity. Patient was treated for reactive airway disease, given breathing treatments and was discharged on as needed inhalers. Patient was brought in today by her as she was having shortness of breath and on the way to the ED when she slumped over in the car. In the emergency department she showed agonal breathing, she was intubated for airway protection emergently. Patient was given Solu-Medrol and breathing treatments and was placed on the mechanical ventilation. Chest x-ray showed bilateral infiltrates concerning for pneumonia. CT of the head was negative. I evaluated the patient in the ICU. She is on minimal sedation and mild attempts to wake up and intermittently tries to follows commands. She still on high oxygen requirement FiO2 is 60% with a PEEP of 5. I have increased the PEEP to 10. I have started the patient on scheduled IV Solu-Medrol, DuoNeb breathing treatments, cefepime and azithromycin for probable pneumonia. 04/20 Remains intubated, off sedation following commands. Currently FiO2 had been weaned to 40%. Urine output 950 ml since admission. Start SBT, Bumex 1 mg IV x1. 04/21: Tolerating CPAP better today, Appears calm following commands. UO adequate, though creat increasing. Cultures remain negative 04/22: Extubated yesterday required BiPAP overnight. Currently on nasal cannula slightly tachypneic but able to talk in full sentences maintaining oxygen saturation 04/23: Breathing more comfortably today on nasal cannula. Daughter At the bedside. Urine output adequate, creatinine has slightly improved 05/05: Rapid response team was called due to patient's altered mental status and hypoxemia. She was immediately transferred to ICU with a blood gas showing severe hypercarbic acidosis and was immediately intubated. She also became slightly hypotensive requiring a central line placement and initiation of vasopressor therapy Subjective 05/06: Awake and alert but not following commands. Nods head but inappropriately to questions. CAM ICU positive. Sedation is currently been held. Off norepinephrine. Currently nothing by mouth. Objective Vital Signs Date Time Temp Pulse Resp B/P (MAP) Pulse Ox O2 Delivery O2 Flow Rate FiO2 05/06/17 08:59 100 40 05/06/17 06:00 56 05/06/17 04:00 98.0 18 114/57 (76) 05/05/17 21:45 Bi-Pap 05/05/17 21:30 6.00 Intake and Output 05/06/17 05/06/17 05/07/17 08:00 16:00 00:00 Intake Total 208.5 ml Balance 208.5 ml Result Diagram: 05/06/17 0443 05/06/17 0443 Other Results Microbiology Date/Time Source Procedure Growth Status 04/19/17 16:54 Blood Peripheral Aerobic Blood Culture - Final NO GROWTH IN 5 DAYS Complete 04/19/17 16:54 Blood Peripheral Anaerobic Blood Culture - Final NO GROWTH IN 5 DAYS Complete 04/19/17 13:10 Sputum Endotracheal Gram Stain - Final Complete 04/19/17 13:10 Sputum Endotracheal Sputum Culture - Final HEAVY GROWTH NORMAL RESPIRATORY GORDON Complete 04/19/17 06:15 Urine Clean Catch Urine Culture - Final NO GROWTH Complete Imaging Last Impressions Chest X-Ray 05/06/17 0000 Signed Impressions: Service Date/Time: Saturday, May 06, 2017 03:22 - CONCLUSION: Left IJ central venous catheter courses superiorly in the region of the SVC with the tip in the region of distal right internal jugular vein or right brachiocephalic vein. This could be retracted 5 cm. No evidence of pneumothorax. Hussain Green MD Abdomen X-Ray 05/04/17 0600 Signed Impressions: Service Date/Time: May 06:03 - CONCLUSION: Contrast through to the rectum. Basically stable dilatation of the proximal colon Duncan Delgado MD Enema w/Water Soluble 05/02/17 0000 Signed Impressions: Service Date/Time: Tuesday, May 02, 2017 08:02 - CONCLUSION: 1. Limited suboptimal exam. The cecum and right colon could not be opacified despite repeated attempts. 2. Residual stool and mild to moderate diverticulosis. Guevara Crowell MD Abdomen/Pelvis CT 05/02/17 0000 Signed Impressions: Service Date/Time: Tuesday, May 02, 2017 19:58 - CONCLUSION: 1. Nonspecific bowel gas pattern remains with contrast noted in the colon from the recent Gastrografin enema. The cecum remains distended. A rectal catheter is present. 2. No free air or fluid. 3. Small pleural effusions with mild consolidation in the lung bases. 4. Stable small adrenal masses likely representing adenomas. 5. Small nonobstructing left renal calculus. Guevara Crowell MD Catheter Placement X-Ray 05/01/17 0000 Signed Impressions: Service Date/Time: Monday, May 01, 2017 11:45 - CONCLUSION: Uncomplicated line placement as above. Brian Mcmanus MD Renal Ultrasound 04/20/17 0000 Signed Impressions: Service Date/Time: April 15:07 - CONCLUSION: 1. There is no hydronephrosis. 2. Stable 8mm nonobstructing left renal stone. Duncan Avery MD Head CT 04/19/17 0702 Signed Impressions: Service Date/Time: Wednesday, April 19, 2017 07:29 - CONCLUSION: 1. Cerebral white matter hypodensity characteristic of chronic microvascular ischemic disease. 2. No evidence of acute infarct, hemorrhage, mass or edema. Renato Coughlin MD Objective Remarks GEN: 82-year-old female, currently orotracheally intubated Head is normocephalic atraumatic. ENT: Oropharynx without erythema access. Orotracheally intubated. Neck: Right IJ hematemesis catheter left IJ CVL clean dry and intact without erythema Cardiovascular: RRR. S1, S2. No S4. Without murmur Lungs: Diminished breath sounds bilaterally. Few crackles appreciated in the bilateral bases. Positive end expiratory wheeze Abdomen: Abdomen morbidly obese, soft nontender. No guarding, rebound, or rigidity. Extremities: 1+ edema/anasarca Neurologic: Positive gag. Positive corneal reflex. Pupils are symmetrical 3 mm and reactive to light bilaterally. Moves all 4 extremity spontaneously.. Nods head inappropriately to commands. Procedures Vas-Cath Centerline placement Urinary Catheter: No Assessment to: Continue Vascular Central Line Catheter: Yes Assessment to: Continue Date of Insertion: May 05, 2017 Line: Central Venous Catheter Side: Left Location: Jugular A/P Assessment and Plan NEURO/PSYCH: Acute metabolic encephalopathy - Propofol/fentanyl drips for for vent synchrony while intubated - Goal of RA SS -2 - Daily sedation vacation - CT of the head negative for acute findings, holding gabapentin - Holding morphine when necessary pain RESP: Acute hypoxemic respiratory failure Pneumonia COPD with exacerbation Restrictive lung disease - Extubated 04/21. Reintubated 05/05 - PRVC 18/500/1// Ventilator bundle -Albuterol/after 2 aerosols every 6 hours with albuterol and dorsal to 2 hours. Dyspnea Spontaneous breathing trials daily Follow-up a.m. chest x-ray CV: Chronic A. fib Transient hypotension -Currently off norepinephrine. Goal to maintain inotropic pressure greater than equal to 65 - Rate controlled atrial fibrillation -Holding Apixaban currently. On subcutaneous heparin - Anticoagulation hold for anemia.. Resume when clinically indicated -Currently holding diltiazem 360 mill grams daily, metoprolol 100 mg twice a day. Check digoxin level in a.m. Hold for now. Last documented level I.8 Currently normal saline at 42 cc an hour - On atorvastatin 20 mg daily for dyslipidemia. GI: Colonic ileus Gastrografin enema 05/02. Proximal colonic dilatation. Patient is having bowel movements. Liquid diarrhea Famotidine for GI prophylaxis On metoclopramide 5 mg IV every 8 hours for colonic ileus per GI. Will check KUB today. : Acute on chronic kidney disease Secondary hyperparathyroidism - Nephrology -Dr. Grewal - Monitor renal function closely. Nelson catheter. - Hemodialysis per nephrology. Currently on Monday/ and Monday - IR for permacath 05/10 - Continue Calciferol 0.25 mcg daily for secondary hyperparathyroidism ID: Severe sepsis resolved Pneumonia - Blood sputum and urine culture, all negative to date - Empiric cefepime and azithromycin for 7-10 days course complete HEME: Leukocytosis Normocytic anemia - Monitor CBC, CMP, INR -Holding apixaban - Ordered 2 units PRBCs. Unable to get ahold for transfusion permission. Not emergent so will wait until healthcare PROXY available ENDO: Hypothyroidism Type 2 diabetes - Continue levothyroxine at 125 g daily, sliding-scale insulin - SSI with every 6 hours Accu-Cheks on novulog to maintain euglycemia. Holding insulin detemir 10 units twice a day while nothing by mouth MSK: OA/OP Continue cholecalciferol 400 units twice a day PT evaluate and treat PROPH: - Bilateral lower extremity SCDs, heparin subcutaneous, nimodipine LINES: -Left IJ central line placed 05/05 . We'll need to be retracted 5 cm as currently going a right IJ Critical Care: The total critical care time was 35 minutes. Time to perform other separately billable procedures was not included in the critical care time. Discussed with Vitaliy Sales and son and daughter. Requested alternate code intubation only. Discussed we would not do chest compressions/CPR/ defibrillation. All family members acknowledge understanding. CODE STATUS will be changed Selvin Hernandez MD May 06, 2017 09:19
[2017-05-06] MEDS: EPOETIN ALFA 10,000 UNITS/ML VIAL IV PUSH PRN (09:23)
[2017-05-06] MEDS: GENTAMICIN SULFATE (DIALYSIS USE ONLY) 20 MG/2 ML VIAL OTHER PRN (09:47)
[2017-05-06] MEDS: ALBUMIN 25% INJ 100 ML IV PRN (09:48)
[2017-05-06] MEDS: SODIUM CHLOR 0.9% 1000 ML INJ 1,000 ML IV SCH (10:24)
[2017-05-06 11:45] LABS: C. DIFF EPI 027 PRESUMPTIVE NEGATIVE (NEGATIVE)
[2017-05-06] MEDS: RESP: ALBUTEROL 2.5 MG/IPRATROPIUM 0.5 MG NEB (SCH) NEB ×3 (11:47→20:21)
[2017-05-06 13:37] LABS: REVIEW FLAG FINAL
[2017-05-06 13:38] LABS: HEMATOCRIT 18.6 % (35.0-46.0)
--- NOTE | 2017-05-06 13:47 | RADRPT ---
EXAM DATE/TIME: 05/06/2017 13:29 [facility] COMPARISON: CHEST SINGLE AP, May 06, 2017, 3:22. INDICATIONS : Central line repositioning MEDICAL HISTORY : Cardiovascular disease. Diabetes mellitus type II. Hypertension SURGICAL HISTORY : None. ENCOUNTER: Initial ACUITY: 1 day PAIN SCORE: Non-responsive. LOCATION: Bilateral chest FINDINGS: Patient is rotated. There is a grossly stable ETT and right IJ temporary dialysis catheter. Interval retraction of the left IJ central line with tip now in the left brachiocephalic vein. Remainder of th e exam is unchanged. CONCLUSION: 1. Interval retraction of the left IJ central line with tip now in the left brachycephalic vein. Heath Raza MD on May 06, 2017 at 13:43 Board Certified Radiologist. This report was verified electronically.
[2017-05-06] MEDS: ARTIFICIAL TEARS OPTH SOLN 15 ML BTL EACH EYE SCH ×2 (13:51→22:00)
--- NOTE | 2017-05-06 15:00 | HHI.NPPN ---
Subjective History of Present Illness Patient is a 82-year-old with sepsis, COPD, intubation, diabetes, acute renal failure and chronic kidney disease. Additional Remarks Patient remain on the vent, has eyes open, not in distress. Objective Data Data 05/06/17 05/07/17 19:00 07:00 Intake Total 100 ml Output Total 3000 ml Balance -2900 ml IV Total 100 ml Hemodialysis 3000 ml Vital Signs Date Time Temp Pulse Resp B/P (MAP) Pulse Ox O2 Delivery O2 Flow Rate FiO2 05/06/17 14:17 100.4 112 14 139/66 100 05/06/17 14:00 112 05/06/17 13:55 100.0 92 11 131/62 100 05/06/17 13:41 40 05/06/17 12:00 40 05/06/17 12:00 98.7 90 19 132/64 (86) 100 05/06/17 12:00 84 05/06/17 11:47 100 40 05/06/17 10:00 82 05/06/17 08:59 100 40 05/06/17 08:00 99.5 74 22 144/74 (97) 100 05/06/17 08:00 40 05/06/17 08:00 71 05/06/17 07:00 99 40 05/06/17 06:00 56 05/06/17 05:12 99 40 05/06/17 04:00 98.0 52 18 114/57 (76) 100 05/06/17 04:00 52 05/06/17 04:00 40 05/06/17 03:15 50 102/48 05/06/17 03:05 52 97/49 05/06/17 03:05 52 97/49 05/06/17 02:00 97.8 62 18 126/58 (80) 98 05/06/17 02:00 62 05/06/17 00:00 40 05/06/17 00:00 97.6 62 21 107/51 (69) 100 05/05/17 23:51 100 50 05/05/17 23:20 100 100 05/05/17 22:35 94 50 05/05/17 21:45 90 Bi-Pap 50 05/05/17 21:30 92 6.00 05/05/17 21:12 97.5 80 16 151/67 (95) 96 05/05/17 20:45 68 05/05/17 16:02 97.6 74 20 145/70 (95) 91 -: 05/06/17 1320 05/06/17 0443 Physical Exam General Appearance: No Acute Distress, Comfortable, Obese Neck Neck Exam: Neck Supple Pulmonary Resp Exam: Decreased Bases Cardiology CV Exam: Arrhythmia Gastrointestinal/Abdomen GI Exam: Bowel Sounds Hypoactive Extremeties Extremities Exam: Trace Edema Neurologic Neuro Exam: Alert, Awake Psychiatric Psych Exam: Appropriate Responses Assessment/Plan Problem List: (1) Acute on chronic renal insufficiency ICD Codes: N28.9 - Disorder of kidney and ureter, unspecified; N18.9 - Chronic kidney disease, unspecified Status: Acute Plan: Patient is in acute renal failure and had chronic kidney disease ESRD no recovery need to hold Eliquis and give heparin place PermCath next Monday may need AVF as well GI and colorectal surgery following the patient. HD done and 3 liters removed. D/W family at bed side. (2) Hypertension ICD Codes: I10 - Hypertension Status: Acute Plan: Blood pressure was low (3) Diabetes ICD Codes: E11.9 - Type 2 diabetes mellitus without complications Status: Acute Plan: Continue to monitor (4) COPD with acute exacerbation ICD Codes: J44.1 - Chronic obstructive pulmonary disease with (acute) exacerbation Plan: extubated Problem Qualifiers (1) Diabetes: Marzena Hunt MD May 06, 2017 15:00
--- NOTE | 2017-05-06 15:49 | HHI.GIFU ---
Subjective Remarks Pt developed AMS, hypoxemia, was intubated yesterday. Awake. (Deidre Flores) Objective Vitals I&O Vital Signs Date Time Temp Pulse Resp B/P (MAP) Pulse Ox O2 Delivery O2 Flow Rate FiO2 05/06/17 14:17 100.4 112 14 139/66 100 05/06/17 14:00 112 05/06/17 13:55 100.0 92 11 131/62 100 05/06/17 13:41 40 05/06/17 12:00 40 05/06/17 12:00 98.7 90 19 132/64 (86) 100 05/06/17 12:00 84 05/06/17 11:47 100 40 05/06/17 10:00 82 05/06/17 08:59 100 40 05/06/17 08:00 99.5 74 22 144/74 (97) 100 05/06/17 08:00 40 05/06/17 08:00 71 05/06/17 07:00 99 40 05/06/17 06:00 56 05/06/17 05:12 99 40 05/06/17 04:00 98.0 52 18 114/57 (76) 100 05/06/17 04:00 52 05/06/17 04:00 40 05/06/17 03:15 50 102/48 05/06/17 03:05 52 97/49 05/06/17 03:05 52 97/49 05/06/17 02:00 97.8 62 18 126/58 (80) 98 05/06/17 02:00 62 05/06/17 00:00 40 05/06/17 00:00 97.6 62 21 107/51 (69) 100 05/05/17 23:51 100 50 05/05/17 23:20 100 100 05/05/17 22:35 94 50 05/05/17 21:45 90 Bi-Pap 50 05/05/17 21:30 92 6.00 05/05/17 21:12 97.5 80 16 151/67 (95) 96 05/05/17 20:45 68 05/05/17 16:02 97.6 74 20 145/70 (95) 91 I/O 05/05/17 05/05/17 05/05/17 05/06/17 05/06/174/17 07:00 15:00 23:00 07:00 15:00 23:00 Intake Total 1360 ml 120 ml 208.5 ml 100 ml Output Total 900 ml 3000 ml Balance 460 ml 120 ml 208.5 ml -2900 ml Intake Oral 360 ml 120 ml IV Total 1000 ml 208.5 ml 100 ml Output Urine Total 600 ml Stool Total 300 ml Hemodialysis 3000 ml Bladder Scan Volume Amount 0 ml 118 ml 120 ml # Voids 1 1 # Bowel Movements 0 Laboratory Laboratory Tests Test 05/05/17 22:39 05/06/17 00:46 05/06/17 04:43 05/06/17 09:30 Blood Gas Puncture Site LT RADIAL LT RADIAL Blood Gas Patient Temperature 98.6 98.6 Blood Gas HCO3 28 28 Blood Gas Base Excess 1.6 3.6 Blood Gas Oxygen Saturation 87 96 Arterial Blood pH 7.24 7.42 Arterial Blood Partial Pressure CO2 68 44 Arterial Blood Partial Pressure O2 62 94 Arterial Blood Oxygen Content 8.4 9.7 Arterial Blood Carboxyhemoglobin 2.1 2.1 Arterial Blood Methemoglobin 0.8 0.8 Blood Gas Hemoglobin 6.8 7.1 Oxygen Delivery Device BiPAP VENTILATOR Blood Gas Ventilator Setting [id number]/[id number] PRVC/AC Blood Gas Inspired Oxygen 50 50 White Blood Count 12.8 Red Blood Count 2.02 Hemoglobin 6.0 Hematocrit 19.3 Mean Corpuscular Volume 95.5 Mean Corpuscular Hemoglobin 29.8 Mean Corpuscular Hemoglobin Concent 31.2 Red Cell Distribution Width 14.6 Platelet Count 164 Mean Platelet Volume 8.0 Neutrophils (%) (Auto) 81.9 Lymphocytes (%) (Auto) 6.9 Monocytes (%) (Auto) 10.1 Eosinophils (%) (Auto) 0.8 Basophils (%) (Auto) 0.3 Neutrophils # (Auto) 10.5 Lymphocytes # (Auto) 0.9 Monocytes # (Auto) 1.3 Eosinophils # (Auto) 0.1 Basophils # (Auto) 0.0 CBC Comment AUTO DIFF Differential Total Cells Counted 100 Neutrophils % (Manual) 86 Band Neutrophils % 5 Lymphocytes % 3 Monocytes % 4 Eosinophils % 2 Neutrophils # (Manual) 11.6 Nucleated Red Blood Cells 4 Differential Comment FINAL DIFF MANUAL Platelet Estimate NORMAL Platelet Morphology Comment NORMAL Stomatocytes 1+ Blood Urea Nitrogen 48 Creatinine 4.79 Random Glucose 174 Calcium Level 7.9 Sodium Level 139 Potassium Level 3.5 Chloride Level 102 Carbon Dioxide Level 27.7 Anion Gap 9 Estimat Glomerular Filtration Rate 11 B-Type Natriuretic Peptide 1399 Stool C. difficile Toxin (PCR) NEGATIVE Stl C. difficile Toxin Epiderm 027 PRESUMPTIVE NEGATIVE Test 05/06/17 13:20 Hemoglobin 5.8 Hematocrit 18.6 Date/Time Source Procedure Growth Status 04/19/17 16:54 Blood Peripheral Aerobic Blood Culture - Final NO GROWTH IN 5 DAYS Complete 04/19/17 16:54 Blood Peripheral Anaerobic Blood Culture - Final NO GROWTH IN 5 DAYS Complete 04/19/17 13:10 Sputum Endotracheal Gram Stain - Final Complete 04/19/17 13:10 Sputum Endotracheal Sputum Culture - Final HEAVY GROWTH NORMAL RESPIRATORY GORDON Complete 04/19/17 06:15 Urine Clean Catch Urine Culture - Final NO GROWTH Complete Physical Exam HEENT: Normocephalic; atraumatic; no jaundice. intubated CHEST: CTA CARDIAC: RRR ABDOMEN: Soft, obese, nontender; no hepatosplenomegaly; bowel sounds are present in all four quadrants. EXTREMITIES: Generalized edema. SKIN: Normal; no rash; no jaundice. BRASS MOLDER: awake, lethargic, weak (Deidre Flores SENIOR GRADUATE ADVISOR) Assessment and Plan Plan ASSESSMENT: - anemia - hgb dropped to 5.8. blood transfusion. no obvious bleeding, dark brown stool in bag. hemoccult pending. - Abdominal pain, colonic ileus. KUB (04/30/17)----> Gaseous dilatation of colon greatest in the cecal region measuring up to 13 cm. Differential diagnosis includes ileus. A distal colonic obstruction could have a similar appearance. Of note, she has a history of SBO and underwent exploratory laparotomy with lysis of adhesions for abdominal pain, probable small bowel obstruction (01/05/13) with Dr. Tam. S/P Gastrografin Enema (05/02/17)--> Limited suboptimal exam. The cecum and right colon could not be opacified despite repeated attempts. Residual stool and mild to moderate diverticulosis. CT Scan abdomen and pelvis without iv contrast (05/02/17)--> nonspecific bowel gas pattern remains with contrast noted in the colon from recent Gastrografin enema. The cecum remains distended. A rectal catheter. No free air or fluid. Small pleural effusions with mild consolidation in the lung bases. Stable small adrenal masses likely representing adenomas. Small nonobstructing left renal calculus. KUB (05/04/17)---> Contrast through to the rectum, basically stable dilatation of the proximal colon. mech soft diet, thin liquids per ST. now intubated and NPO. dark brown liquid stool in bag. - Acute on chronic kidney disease with electrolyte abnormalities. S/P Vascath, started HD. - Respiratory failure, COPD Exacerbation, PNA. S/P Abx. now intubated - Atrial fibrillation. Digoxin, cardizem, Eliquis, BB - HTN, DM, metabolic encephalopathy, hypothyroidism per attending PLAN: - await hemoccult - consider EGD when stable - monitor HH - transfuse as needed - supportive care - Pt seen and examined by Dr. Hernández and myself and this note is written on his behalf (Deidre Flores) Physician Comments Seen and examined with Stevan. Plan as above. Will follow up with you . (Benton Hernández MD) Deidre Flores May 06, 2017 15:49 Benton Hernández MD May 06, 2017 17:32
[2017-05-06] MEDS: CHLORHEXIDINE 0.12% (ORAL KIT) 15 ML CUP MT SCH (20:12)
[2017-05-06] MEDS: ATORVASTATIN 20 MG TAB PO SCH (20:13)
[2017-05-06] MEDS: METOPROLOL TARTRATE 5 MG/5 ML VIAL IV PUSH PRN (20:19)
[2017-05-06] MEDS: hydrALAZINE HCL 20 MG/ML VIAL IV PUSH PRN (23:28)
[2017-05-06 23:39] LABS: HEMATOCRIT 26.7 % (35.0-46.0); REVIEW FLAG FINAL
[2017-05-07] VITALS (17 sets, daily range): BP systolic 134–163; BP diastolic 63–73; PULSE 98–120; RESP 18–29; TEMP 98.5–101.1; O2SAT 100
[2017-05-07] MEDS: RESP: ALBUTEROL 2.5 MG/IPRATROPIUM 0.5 MG NEB (SCH) NEB ×4 (01:27→20:58)
[2017-05-07] MEDS: CHLORHEXIDINE GLUCONATE 2 % 1 PACK (2 CLOTHS) TOP SCH (02:18)
[2017-05-07 04:33] LABS: AUTOMATED NEUTROPHIL # 13.9 TH/MM3 (1.8-7.7); BASOPHIL # 0.1 TH/MM3 (0-0.2); BASOPHIL % 0.4 % (0.0-2.0); EOSINOPHIL # 0.1 TH/MM3 (0-0.4); EOSINOPHIL % 0.5 % (0.0-4.0); HEMO FLAGS DIFF FINAL; LYMPH % 5.3 % (9.0-44.0); LYMPHOCYTE # 0.9 TH/MM3 (1.0-4.8); MEAN CELL VOLUME 89.5 FL (80.0-100.0); MEAN CORPUSCULAR HEMOGLOBIN 29.9 PG (27.0-34.0); MEAN CORPUSCULAR HGB CONC 33.4 % (32.0-36.0); MONO % 7.1 % (0.0-8.0); NEUT % 86.7 % (16.0-70.0); PLATELET COUNT 130 TH/MM3 (150-450); RED CELL DISTRIBUTION WIDTH 16.7 % (11.6-17.2); WHITE BLOOD COUNT 16.1 TH/MM3 (4.0-11.0)
[2017-05-07 05:02] LABS: BICARBONATE 26.4 MEQ/L (21.0-32.0)
[2017-05-07 05:16] LABS: DIGOXIN 1.3 NG/ML (0.8-2.0)
[2017-05-07] MEDS: METOCLOPRAMIDE HCL 10 MG/2 ML VIAL IV PUSH SCH ×3 (05:30→21:04)
[2017-05-07] MEDS: HEPARIN SODIUM - SQ 10,000 UNITS/ML VIAL SQ SCH ×3 (05:30→21:05)
[2017-05-07] MEDS: LEVOTHYROXINE SODIUM 125 MCG TAB PO SCH (05:38)
[2017-05-07] MEDS: METOPROLOL TARTRATE 5 MG/5 ML VIAL IV PUSH PRN (05:39)
[2017-05-07] MEDS: ARTIFICIAL TEARS OPTH SOLN 15 ML BTL EACH EYE SCH ×3 (05:40→21:04)
[2017-05-07] MEDS: INSULIN ASPART SUPPLEMENTAL SCALE SQ SCH ×4 (05:48→17:54)
--- NOTE | 2017-05-07 06:37 | RADRPT ---
EXAM DATE/TIME: 05/07/2017 05:49 [facility] COMPARISON: CHEST SINGLE AP, May 06, 2017, 13:29. INDICATIONS : Respiratory failure MEDICAL HISTORY : Cardiovascular disease. Diabetes mellitus type II. Hypertension. SURGICAL HISTORY : None. ENCOUNTER: Subsequent ACUITY: 3 weeks PAIN SCORE: Non-responsive. LOCATION: Bilateral chest FINDINGS: 2 AP views of the chest. Endotracheal tube, nasogastric tube, dual-lumen right subclavian central stephani ous catheter remain in place. Persistent bilateral pulmonary parenchymal opacity and small right pleu ral effusion. Slight increase in right-sided pulmonary opacity. No evidence of pneumothorax. Cardiac silhouette is enlarged but unchanged. CONCLUSION: Persistent bilateral pulmonary opacity and small right pleural effusion. Slight increase in right-kirill ed lung opacity. Hussain Green MD on May 07, 2017 at 6:34 Board Certified Radiologist. This report was verified electronically.
[2017-05-07] MEDS: CHLORHEXIDINE 0.12% (ORAL KIT) 15 ML CUP MT SCH ×2 (08:12→20:39)
[2017-05-07] MEDS: SODIUM CHLORIDE 0.9% FLUSH 10 ML FLUSH IV FLUSH SCH ×2 (08:12→20:39)
[2017-05-07] MEDS: INSULIN DETEMIR 100 UNITS/ML VIAL SQ SCH ×2 (08:13→21:04)
[2017-05-07] MEDS: CALCITRIOL 0.25 MCG CAP PO SCH (08:13)
[2017-05-07] MEDS: LACTOBACILLUS ACIDOPHILUS TAB PO SCH ×3 (08:16→17:36)
[2017-05-07] MEDS: LANSOPRAZOLE SOLUTAB 30 MG TAB NG SCH (08:16)
[2017-05-07] MEDS: MULTIVITAMINS/MINERALS THERAPEUTIC TAB PO SCH ×2 (08:16→21:03)
[2017-05-07] MEDS: CHOLECALCIFEROL (VIT D3) 400 UNIT TAB PO SCH ×2 (08:16→21:03)
[2017-05-07] MEDS ORDERED: POTASSIUM CHLORIDE 25 MEQ EFFERVESCENT TAB PO ONE (09:30)
[2017-05-07] MEDS ORDERED: POTASSIUM PHOSPHATE MONOBASIC 500 MG TAB PO ONE (09:30)
[2017-05-07] MEDS: SODIUM CHLOR 0.9% 1000 ML INJ 1,000 ML IV SCH (10:13)
[2017-05-07 13:39] LABS: REVIEW FLAG FINAL
--- NOTE | 2017-05-07 13:41 | HHI.NPPN ---
Subjective History of Present Illness Patient is a 82-year-old with sepsis, COPD, intubation, diabetes, acute renal failure and chronic kidney disease. Additional Remarks Patient remain on the vent, awake, not in distress. Objective Data Data Vital Signs Date Time Temp Pulse Resp B/P (MAP) Pulse Ox O2 Delivery O2 Flow Rate FiO2 05/07/17 12:00 103 05/07/17 12:00 40 05/07/17 12:00 98.7 108 23 140/65 (90) 100 05/07/17 11:45 100 40 05/07/17 10:00 106 05/07/17 08:42 40 05/07/17 08:35 100 40 05/07/17 08:35 40 05/07/17 08:00 98 05/07/17 08:00 40 05/07/17 08:00 98.5 102 18 162/73 (102) 100 05/07/17 07:00 100 Mechanical Ventilator 40 05/07/17 06:00 102 05/07/17 04:00 102 05/07/17 04:00 99.0 102 18 134/63 (86) 100 05/07/17 04:00 100 40 05/07/17 04:00 40 05/07/17 02:00 102 05/07/17 01:28 100 40 05/07/17 00:00 104 05/07/17 00:00 99.2 104 29 152/69 (96) 100 05/07/17 00:00 40 05/06/17 22:00 100 05/06/17 20:22 100 40 05/06/17 20:00 102 05/06/17 20:00 40 05/06/17 20:00 99.3 102 21 145/67 (93) 100 05/06/17 19:00 100 Mechanical Ventilator 40 05/06/17 18:00 103 05/06/17 17:07 100 40 05/06/17 16:44 99.8 102 18 140/63 100 05/06/17 16:26 99.4 101 17 157/70 100 05/06/17 16:00 40 05/06/17 16:00 99.7 102 17 149/57 (87) 100 05/06/17 16:00 102 05/06/17 14:17 100.4 112 14 139/66 100 05/06/17 14:00 112 05/06/17 13:55 100.0 92 11 131/62 100 05/06/17 13:41 40 -: 05/07/17 1310 05/07/17 0424 Physical Exam General Appearance: No Acute Distress, Comfortable, Obese Neck Neck Exam: Neck Supple Pulmonary Resp Exam: Decreased Bases Cardiology CV Exam: Arrhythmia Gastrointestinal/Abdomen GI Exam: Bowel Sounds Hypoactive Extremeties Extremities Exam: Trace Edema Neurologic Neuro Exam: Alert, Awake Psychiatric Psych Exam: Appropriate Responses Assessment/Plan Problem List: (1) Acute on chronic renal insufficiency ICD Codes: N28.9 - Disorder of kidney and ureter, unspecified; N18.9 - Chronic kidney disease, unspecified Status: Acute Plan: Patient is in acute renal failure and had chronic kidney disease ESRD no recovery need to hold Eliquis and give heparin place PermCath next Monday may need AVF as well GI and colorectal surgery following the patient. HD done yesterday and 3 liters removed. Weaning as per CCM. HD as needed. Dr. Grewal will follow in AM. (2) Hypertension ICD Codes: I10 - Hypertension Status: Acute Plan: Blood pressure was low (3) Diabetes ICD Codes: E11.9 - Type 2 diabetes mellitus without complications Status: Acute Plan: Continue to monitor (4) COPD with acute exacerbation ICD Codes: J44.1 - Chronic obstructive pulmonary disease with (acute) exacerbation Plan: extubated Problem Qualifiers (1) Diabetes: Marzena Hunt MD May 07, 2017 13:41
[2017-05-07 14:07] LABS: POTASSIUM 3.7 MEQ/L (3.5-5.1)
--- NOTE | 2017-05-07 15:40 | HHI.CCPN ---
Subjective Remarks/Hospital Course The patient is an 82 year old female past with past medical history significant for hypertension, atrial fibrillation, diabetes mellitus, obesity, hypothyroidism, hyperlipidemia, diabetic neuropathy, who was seen in ED 3 days ago bronchospasm. She has COPD/Asthma and restrictive lung disease related to her obesity. Patient was treated for reactive airway disease, given breathing treatments and was discharged on as needed inhalers. Patient was brought in today by her as she was having shortness of breath and on the way to the ED when she slumped over in the car. In the emergency department she showed agonal breathing, she was intubated for airway protection emergently. Patient was given Solu-Medrol and breathing treatments and was placed on the mechanical ventilation. Chest x-ray showed bilateral infiltrates concerning for pneumonia. CT of the head was negative. I evaluated the patient in the ICU. She is on minimal sedation and mild attempts to wake up and intermittently tries to follows commands. She still on high oxygen requirement FiO2 is 60% with a PEEP of 5. I have increased the PEEP to 10. I have started the patient on scheduled IV Solu-Medrol, DuoNeb breathing treatments, cefepime and azithromycin for probable pneumonia. 04/20 Remains intubated, off sedation following commands. Currently FiO2 had been weaned to 40%. Urine output 950 ml since admission. Start SBT, Bumex 1 mg IV x1. 04/21: Tolerating CPAP better today, Appears calm following commands. UO adequate, though creat increasing. Cultures remain negative 04/22: Extubated yesterday required BiPAP overnight. Currently on nasal cannula slightly tachypneic but able to talk in full sentences maintaining oxygen saturation 04/23: Breathing more comfortably today on nasal cannula. Daughter At the bedside. Urine output adequate, creatinine has slightly improved 05/05: Rapid response team was called due to patient's altered mental status and hypoxemia. She was immediately transferred to ICU with a blood gas showing severe hypercarbic acidosis and was immediately intubated. She also became slightly hypotensive requiring a central line placement and initiation of vasopressor therapy Subjective 05/06: Awake and alert but not following commands. Nods head but inappropriately to questions. CAM ICU positive. Sedation is currently been held. Off norepinephrine. Currently nothing by mouth. 05/07: Tmax 100.4 Patient awake following commands. Sedation off a greater than 24-hour. Discussion of CODE STATUS with patient and daughter, patient states she requests to be full code explanation provided in detail. CODE STATUS changed to full code. Sputum cultures pending. Empiric antibiotics initiated Levaquin and cefepime. Patient continues on CPAP trials. The patient lasted 13 hours yesterday on CPAP. Plan for Vas-Cath placement by interventional radiology scheduled for 05/10. Objective Vital Signs Date Time Temp Pulse Resp B/P (MAP) Pulse Ox O2 Delivery O2 Flow Rate FiO2 05/07/17 14:00 108 05/07/17 12:00 40 05/07/17 12:00 98.7 23 140/65 (90) 100 05/07/17 07:00 Mechanical Ventilator 05/05/17 21:30 6.00 Intake and Output 05/07/17 05/07/17 05/08/17 08:00 16:00 00:00 Intake Total 120 ml Output Total 775 ml Balance -655 ml Result Diagram: 05/07/17 1310 05/07/17 1310 Other Results Microbiology Date/Time Source Procedure Growth Status 05/06/17 09:30 Stool Stool Stool Occult Blood (LAYLA) - Final HEMOCCULT POSITIVE Complete Imaging Last Impressions Chest X-Ray 05/06/17 0000 Signed Impressions: Service Date/Time: Saturday, May 06, 2017 03:22 - CONCLUSION: Left IJ central venous catheter courses superiorly in the region of the SVC with the tip in the region of distal right internal jugular vein or right brachiocephalic vein. This could be retracted 5 cm. No evidence of pneumothorax. Hussain Green MD Abdomen X-Ray 05/04/17 0600 Signed Impressions: Service Date/Time: May 06:03 - CONCLUSION: Contrast through to the rectum. Basically stable dilatation of the proximal colon Duncan Delgado MD Enema w/Water Soluble 05/02/17 0000 Signed Impressions: Service Date/Time: Tuesday, May 02, 2017 08:02 - CONCLUSION: 1. Limited suboptimal exam. The cecum and right colon could not be opacified despite repeated attempts. 2. Residual stool and mild to moderate diverticulosis. Guevara Crowell MD Abdomen/Pelvis CT 05/02/17 0000 Signed Impressions: Service Date/Time: Tuesday, May 02, 2017 19:58 - CONCLUSION: 1. Nonspecific bowel gas pattern remains with contrast noted in the colon from the recent Gastrografin enema. The cecum remains distended. A rectal catheter is present. 2. No free air or fluid. 3. Small pleural effusions with mild consolidation in the lung bases. 4. Stable small adrenal masses likely representing adenomas. 5. Small nonobstructing left renal calculus. Guevara Crowell MD Catheter Placement X-Ray 05/01/17 0000 Signed Impressions: Service Date/Time: Monday, May 01, 2017 11:45 - CONCLUSION: Uncomplicated line placement as above. Brian Mcmanus MD Renal Ultrasound 04/20/17 0000 Signed Impressions: Service Date/Time: April 15:07 - CONCLUSION: 1. There is no hydronephrosis. 2. Stable 8mm nonobstructing left renal stone. Duncan Avery MD Head CT 04/19/17 0702 Signed Impressions: Service Date/Time: Wednesday, April 19, 2017 07:29 - CONCLUSION: 1. Cerebral white matter hypodensity characteristic of chronic microvascular ischemic disease. 2. No evidence of acute infarct, hemorrhage, mass or edema. Renato Coughlin MD Objective Remarks GEN: 82-year-old female, currently orotracheally intubated Head is normocephalic atraumatic. ENT: Oropharynx without erythema access. Orotracheally intubated. Neck: Right IJ hematemesis catheter left IJ CVL clean dry and intact without erythema Cardiovascular: RRR. S1, S2. No S4. Without murmur Lungs: Diminished breath sounds bilaterally. Few crackles appreciated in the bilateral bases. Positive end expiratory wheeze Abdomen: Abdomen morbidly obese, soft nontender. No guarding, rebound, or rigidity. Normoactive bowel sounds Extremities: 1+ edema/anasarca Neurologic: RASS 0. Pupils are symmetrical 3 mm and reactive to light bilaterally. Patient following commands communicating by nodding of head appropriately. Moves all 4 extremity spontaneously. Date of Insertion: May 05, 2017 Date of Removal: May 07, 2017 Line: Central Venous Catheter Side: Left Location: Jugular A/P Assessment and Plan NEURO/PSYCH: Acute metabolic encephalopathy - Propofol for for vent synchrony while intubated, and canal discontinued. A chin currently has propofol on hold continuous CPAP trials while watching television denies discomfort - Goal of RA SS -2 - Daily sedation vacation - CT of the head negative for acute findings, holding gabapentin - Holding morphine when necessary pain RESP: Acute hypoxemic respiratory failure Pneumonia COPD with exacerbation Restrictive lung disease - Extubated 04/21. Reintubated 05/05 - PRVC 18/500/// Ventilator bundle -DuoNebs 05/07 chest [id number]-sided lung opacity Continue CPAP trials Obtain sputum culture CV: Chronic A. fib Transient hypotension -Currently off norepinephrine. Goal to maintain MAP greater than equal to 65 - Rate controlled atrial fibrillation -Holding Apixaban currently. Continue subcutaneous heparin - Anticoagulation hold for anemia.. Resume when clinically indicated -Currently holding diltiazem 360 mill grams daily, metoprolol 100 mg twice a day. 05/07- digoxin level 1.3 . Hold for now. Last documented level 1.8 Currently normal saline at 42 cc an hour - On atorvastatin 20 mg daily for dyslipidemia. GI: Colonic ileus Gastrografin enema 05/02. Proximal colonic dilatation. Patient is having bowel movements. Liquid diarrhea Famotidine for GI prophylaxis On metoclopramide 5 mg IV every 8 hours for colonic ileus per GI. Check KUB : Acute on chronic kidney disease Secondary hyperparathyroidism - Nephrology -Dr. Grewal - Monitor renal function closely. Nelson catheter. - Hemodialysis per nephrology. Currently on Monday/ and Monday - IR for permacath 05/10 - Continue Calciferol 0.25 mcg daily for secondary hyperparathyroidism ID: Severe sepsis resolved Pneumonia - Blood sputum and urine culture, all negative to date - Empiric cefepime and azithromycin for 7-10 days course complete HEME: Leukocytosis Normocytic anemia - Monitor CBC, CMP, INR -Holding apixaban - Ordered 2 units PRBCs. Unable to get ahold for transfusion permission. Not emergent so will wait until healthcare PROXY available ENDO: Hypothyroidism Type 2 diabetes - Continue levothyroxine at 125 g daily, sliding-scale insulin - SSI with every 6 hours Accu-Cheks on novulog to maintain euglycemia. Holding insulin detemir 10 units twice a day while nothing by mouth MSK: OA/OP Continue cholecalciferol 400 units twice a day PT evaluate and treat PROPH: - Bilateral lower extremity SCDs, heparin subcutaneous, nimodipine LINES: -Left IJ central line placed 05/05 . We'll need to be retracted 5 cm as currently going a right IJ Critical Care: The total critical care time was 30 minutes. Time to perform other separately billable procedures was not included in the critical care time. Discussed with Vitaliy Sales and daughter. Full CODE STATUS. All family members acknowledge understanding and present in room during discussion. CODE STATUS will be changed. Palliative care consulted as well for goals of care. Physician Flavia Hernandez MD May 07, 2017 15:40
[2017-05-07] MEDS: ACETAMINOPHEN 325 MG TAB PO PRN (16:45)
--- NOTE | 2017-05-07 16:56 | HHI.GIFU ---
Subjective Remarks Resting in bed in no apparent distress. (Jennifer Smith) Objective Vitals I&O Vital Signs Date Time Temp Pulse Resp B/P (MAP) Pulse Ox O2 Delivery O2 Flow Rate FiO2 05/07/17 16:14 100 40 05/07/17 16:00 40 05/07/17 16:00 101.1 102 20 163/73 (103) 100 05/07/17 16:00 102 05/07/17 14:00 108 05/07/17 12:00 103 05/07/17 12:00 40 05/07/17 12:00 98.7 108 23 140/65 (90) 100 05/07/17 11:45 100 40 05/07/17 10:00 106 05/07/17 08:42 40 05/07/17 08:35 100 40 05/07/17 08:35 40 05/07/17 08:00 98 05/07/17 08:00 40 05/07/17 08:00 98.5 102 18 162/73 (102) 100 05/07/17 07:00 100 Mechanical Ventilator 40 05/07/17 06:00 102 05/07/17 04:00 102 05/07/17 04:00 99.0 102 18 134/63 (86) 100 05/07/17 04:00 100 40 05/07/17 04:00 40 05/07/17 02:00 102 05/07/17 01:28 100 40 05/07/17 00:00 104 05/07/17 00:00 99.2 104 29 152/69 (96) 100 05/07/17 00:00 40 05/06/17 22:00 100 05/06/17 20:22 100 40 05/06/17 20:00 102 05/06/17 20:00 40 05/06/17 20:00 99.3 102 21 145/67 (93) 100 05/06/17 19:00 100 Mechanical Ventilator 40 05/06/17 18:00 103 05/06/17 17:07 100 40 I/O 05/06/17 05/06/17 05/06/17 05/07/17 05/07/17 05/07/17 07:00 15:00 23:00 07:00 15:00 23:00 Intake Total 208.5 ml 116.9 ml 1050 ml 120 ml Output Total 3000 ml 500 ml 775 ml Balance 208.5 ml -2883.1 ml 550 ml -655 ml IV Total 208.5 ml 116.9 ml 250 ml Packed Cells 800 ml Tube Irrigant 120 ml Output Urine Total 0 ml 575 ml Stool Total 500 ml 200 ml Hemodialysis 3000 ml Bladder Scan Volume Amount 118 ml 130 ml 120 ml # Voids 1 Laboratory Laboratory Tests Test 05/06/17 23:22 05/07/17 04:24 05/07/17 13:10 Hemoglobin 8.9 8.7 9.0 Hematocrit 26.7 26.0 28.0 White Blood Count 16.1 Red Blood Count 2.90 Mean Corpuscular Volume 89.5 Mean Corpuscular Hemoglobin 29.9 Mean Corpuscular Hemoglobin Concent 33.4 Red Cell Distribution Width 16.7 Platelet Count 130 Mean Platelet Volume 8.1 Neutrophils (%) (Auto) 86.7 Lymphocytes (%) (Auto) 5.3 Monocytes (%) (Auto) 7.1 Eosinophils (%) (Auto) 0.5 Basophils (%) (Auto) 0.4 Neutrophils # (Auto) 13.9 Lymphocytes # (Auto) 0.9 Monocytes # (Auto) 1.1 Eosinophils # (Auto) 0.1 Basophils # (Auto) 0.1 CBC Comment DIFF FINAL Differential Comment Blood Urea Nitrogen 33 Creatinine 3.80 Random Glucose 128 Albumin 2.2 Calcium Level 7.7 Phosphorus Level 0.6 2.0 Sodium Level 142 Potassium Level 3.0 3.7 Chloride Level 103 Carbon Dioxide Level 26.4 Anion Gap 13 Estimat Glomerular Filtration Rate 14 Digoxin Level 1.3 Date/Time Source Procedure Growth Status 04/19/17 16:54 Blood Peripheral Aerobic Blood Culture - Final NO GROWTH IN 5 DAYS Complete 04/19/17 16:54 Blood Peripheral Anaerobic Blood Culture - Final NO GROWTH IN 5 DAYS Complete 05/06/17 09:30 Stool Stool Stool Occult Blood (LAYLA) - Final HEMOCCULT POSITIVE Complete 05/07/17 16:24 Sputum Endotracheal Gram Stain Pending Received 05/07/17 16:24 Sputum Endotracheal Sputum Culture Pending Received 04/19/17 06:15 Urine Clean Catch Urine Culture - Final NO GROWTH Complete Imaging Last Impressions Chest X-Ray 05/07/17 0600 Signed Impressions: Service Date/Time: Sunday, May 07, 2017 05:49 - CONCLUSION: Persistent bilateral pulmonary opacity and small right pleural effusion. Slight increase in right-sided lung opacity. Hussain Green MD Abdomen X-Ray 05/04/17 0600 Signed Impressions: Service Date/Time: May 06:03 - CONCLUSION: Contrast through to the rectum. Basically stable dilatation of the proximal colon Duncan Delgado MD Enema w/Water Soluble 05/02/17 0000 Signed Impressions: Service Date/Time: Tuesday, May 02, 2017 08:02 - CONCLUSION: 1. Limited suboptimal exam. The cecum and right colon could not be opacified despite repeated attempts. 2. Residual stool and mild to moderate diverticulosis. Guevara Crowell MD Abdomen/Pelvis CT 05/02/17 0000 Signed Impressions: Service Date/Time: Tuesday, May 02, 2017 19:58 - CONCLUSION: 1. Nonspecific bowel gas pattern remains with contrast noted in the colon from the recent Gastrografin enema. The cecum remains distended. A rectal catheter is present. 2. No free air or fluid. 3. Small pleural effusions with mild consolidation in the lung bases. 4. Stable small adrenal masses likely representing adenomas. 5. Small nonobstructing left renal calculus. Guevara Crowell MD Catheter Placement X-Ray 05/01/17 0000 Signed Impressions: Service Date/Time: Monday, May 01, 2017 11:45 - CONCLUSION: Uncomplicated line placement as above. Brian Mcmanus MD Renal Ultrasound 04/20/17 0000 Signed Impressions: Service Date/Time: April 15:07 - CONCLUSION: 1. There is no hydronephrosis. 2. Stable 8mm nonobstructing left renal stone. Duncan Avery MD Head CT 04/19/17 0702 Signed Impressions: Service Date/Time: Wednesday, April 19, 2017 07:29 - CONCLUSION: 1. Cerebral white matter hypodensity characteristic of chronic microvascular ischemic disease. 2. No evidence of acute infarct, hemorrhage, mass or edema. Renato Coughlin MD Physical Exam HEENT: Normocephalic; atraumatic; no jaundice. Orotracheally intubated. CHEST: Diminished breath sounds. CARDIAC: RRR ABDOMEN: Soft, obese, nontender; no hepatosplenomegaly; bowel sounds are present in all four quadrants. EXTREMITIES: Anasarca SKIN: Normal; no rash; no jaundice. WEATHER ANALYST: Awake. Lethargic. Generalized weakness. (Jennifer Smith) Assessment and Plan Plan ASSESSMENT: - Anemia - Hemoglobin dropped to 5.8 on 05/06. Patient s/p 2 units PRBC on 05/06. HH 03/30 today. No obvious bleeding, dark brown stool in bag. Hemoccult positive. - Abdominal pain, colonic ileus. KUB (04/30/17)----> Gaseous dilatation of colon greatest in the cecal region measuring up to 13 cm. Differential diagnosis includes ileus. A distal colonic obstruction could have a similar appearance. Of note, she has a history of SBO and underwent exploratory laparotomy with lysis of adhesions for abdominal pain, probable small bowel obstruction (01/05/13) with Dr. Tam. S/P Gastrografin Enema (05/02/17)--> Limited suboptimal exam. The cecum and right colon could not be opacified despite repeated attempts. Residual stool and mild to moderate diverticulosis. CT Scan abdomen and pelvis without iv contrast (05/02/17)--> nonspecific bowel gas pattern remains with contrast noted in the colon from recent Gastrografin enema. The cecum remains distended. A rectal catheter. No free air or fluid. Small pleural effusions with mild consolidation in the lung bases. Stable small adrenal masses likely representing adenomas. Small nonobstructing left renal calculus. KUB (05/04/17)---> Contrast through to the rectum, basically stable dilatation of the proximal colon. mech soft diet, thin liquids per ST. Now intubated and NPO. Dark brown liquid stool in bag. - Acute on chronic kidney disease with electrolyte abnormalities. S/P Vascath, started HD. - Respiratory failure, COPD Exacerbation, PNA. S/P Abx. Now intubated - Atrial fibrillation. Digoxin, cardizem, Eliquis, BB - HTN, DM, metabolic encephalopathy, hypothyroidism per attending PLAN: - Consider EGD when stable - Monitor HH, transfuse as needed - Monitor labs - Supportive care - Further recommendations to follow based on results of above Patient seen and examined by Dr. Hernández and myself and this note is written on his behalf (eJnnifer Smith) Physician Comments Agree with the plan as above. Will follow up with you. (Benton Hernández MD) Jennifer Smith May 07, 2017 16:56 Benton Hernández MD May 07, 2017 20:35
[2017-05-07] MEDS ORDERED: LEVOFLOXACIN 500 MG PREMIX INJ 100 ML IV SCH (17:00)
[2017-05-07] MEDS: CEFEPIME INJ 2,000 MG in SODIUM CHLORIDE 0.9% INJ 100 ML IV SCH (17:35)
[2017-05-07] MEDS: hydrALAZINE HCL 20 MG/ML VIAL IV PUSH PRN (20:38)
[2017-05-07] MEDS: ATORVASTATIN 20 MG TAB PO SCH (21:03)
[2017-05-08] VITALS (18 sets, daily range): BP systolic 155–189; BP diastolic 66–82; PULSE 104–120; RESP 16–26; TEMP 98.5–99.1; O2SAT 100
[2017-05-08] MEDS: INSULIN ASPART SUPPLEMENTAL SCALE SQ SCH ×4 (00:12→17:38)
[2017-05-08] MEDS: METOPROLOL TARTRATE 5 MG/5 ML VIAL IV PUSH PRN ×3 (00:30→21:19)
[2017-05-08] MEDS: RESP: ALBUTEROL 2.5 MG/IPRATROPIUM 0.5 MG NEB (SCH) NEB ×4 (01:24→20:13)
[2017-05-08] MEDS: CEFEPIME INJ 2,000 MG in SODIUM CHLORIDE 0.9% INJ 100 ML IV SCH ×2 (01:35→09:33)
[2017-05-08] MEDS: hydrALAZINE HCL 20 MG/ML VIAL IV PUSH PRN ×2 (01:53→20:06)
[2017-05-08] MEDS: CHLORHEXIDINE GLUCONATE 2 % 1 PACK (2 CLOTHS) TOP SCH (03:22)
--- NOTE | 2017-05-08 04:28 | RADRPT ---
EXAM DATE/TIME: 05/08/2017 03:23 [facility] COMPARISON: CHEST SINGLE AP, May 07, 2017, 5:49. INDICATIONS : Evaluate for pnuemonia- Respiratory failure MEDICAL HISTORY : Cardiovascular disease. Diabetes mellitus type II. Hypertension. SURGICAL HISTORY : None. ENCOUNTER: Subsequent ACUITY: 3 weeks PAIN SCORE: Non-responsive. LOCATION: Bilateral chest FINDINGS: The cardiac silhouette is enlarged in transverse diameter. There is prominence of the central pulmona ry vasculature with indistinct vascular margins compatible with vascular congestion but no evidence o f overt failure. There is left lower lobe atelectasis versus pneumonia. CONCLUSION: 1. Cardiomegaly and findings of vascular congestion without overt failure. There has been no signific ant change when compared to the prior exam. Brian Mcmanus MD on May 08, 2017 at 4:25 Board Certified Radiologist. This report was verified electronically.
[2017-05-08] MEDS: METOCLOPRAMIDE HCL 10 MG/2 ML VIAL IV PUSH SCH ×3 (05:40→20:29)
[2017-05-08] MEDS: LEVOTHYROXINE SODIUM 125 MCG TAB PO SCH (05:40)
[2017-05-08] MEDS: HEPARIN SODIUM - SQ 10,000 UNITS/ML VIAL SQ SCH ×3 (05:41→20:29)
[2017-05-08] MEDS: ARTIFICIAL TEARS OPTH SOLN 15 ML BTL EACH EYE SCH ×3 (05:41→22:00)
[2017-05-08] MEDS: SODIUM CHLOR 0.9% 1000 ML INJ 1,000 ML IV SCH ×2 (05:42→13:03)
[2017-05-08 05:50] LABS: AUTOMATED NEUTROPHIL # 13.7 TH/MM3 (1.8-7.7); EOSINOPHIL % 0.2 % (0.0-4.0); HEMATOCRIT 28.8 % (35.0-46.0); HEMO FLAGS DIFF FINAL; LYMPH % 1.4 % (9.0-44.0); LYMPHOCYTE # 0.2 TH/MM3 (1.0-4.8); MEAN CELL VOLUME 90.3 FL (80.0-100.0); MEAN CORPUSCULAR HEMOGLOBIN 29.6 PG (27.0-34.0); MEAN CORPUSCULAR HGB CONC 32.7 % (32.0-36.0); MONO % 5.5 % (0.0-8.0); NEUT % 92.9 % (16.0-70.0); PLATELET COUNT 119 TH/MM3 (150-450); RED BLOOD COUNT 3.19 MIL/MM3 (4.00-5.30); RED CELL DISTRIBUTION WIDTH 17.7 % (11.6-17.2); WHITE BLOOD COUNT 14.7 TH/MM3 (4.0-11.0)
[2017-05-08 06:09] LABS: BICARBONATE 22.5 MEQ/L (21.0-32.0); MAGNESIUM 1.9 MG/DL (1.5-2.5); POTASSIUM 3.6 MEQ/L (3.5-5.1)
[2017-05-08] MEDS: CHLORHEXIDINE 0.12% (ORAL KIT) 15 ML CUP MT SCH ×2 (09:30→20:30)
[2017-05-08] MEDS: SODIUM CHLORIDE 0.9% FLUSH 10 ML FLUSH IV FLUSH SCH ×2 (09:30→20:30)
[2017-05-08] MEDS: LACTOBACILLUS ACIDOPHILUS TAB PO SCH ×3 (09:31→17:38)
[2017-05-08] MEDS: MULTIVITAMINS/MINERALS THERAPEUTIC TAB PO SCH ×2 (09:31→20:29)
[2017-05-08] MEDS: LANSOPRAZOLE SOLUTAB 30 MG TAB NG SCH (09:31)
[2017-05-08] MEDS: CALCITRIOL 0.25 MCG CAP PO SCH (09:31)
[2017-05-08] MEDS: INSULIN DETEMIR 100 UNITS/ML VIAL SQ SCH ×2 (09:32→20:30)
[2017-05-08] MEDS: CHOLECALCIFEROL (VIT D3) 400 UNIT TAB PO SCH ×2 (09:32→21:14)
--- NOTE | 2017-05-08 11:22 | PD.CONS ---
Consult Service Palliative Care . Consult Requested By Dr. Angelo . Primary Care Physician Unknown . Reason for Consultation a. To assist with evaluation and management of symptoms including: Debility , pain, dyspnea b. To assist medical decision maker(s) with: better understanding of current medical conditions; weighing benefits/burdens of medical treatment options; making medical treatment decisions. . HPI History of Present Illness Ms. Sales is an 82 year old female with a history of hypertension, atrial fibrillation, diabetes, obesity, hypothyroidism (total thyroidectomy in 2010 secondary to thyroid cancer), hyperlipidemia, diabetic neuropathy, and COPD. The patient presented to [facility] ED on 04/19/2017 for evaluation of shortness of breath. Upon arrival to the ED the patient had poor respiratory effort and a thready pulse. Of note, the patient had been seen in the ED on and was diagnosed with a COPD exacerbation. She received breathing treatments and was discharged home with PRN inhalers. Patient had an elevated d- dimer and did undergo a VQ scan due to her renal insufficiency on 04/16/2017; VQ scan came back low probability for pulmonary embolism at that time. The patient has had 2 previous hospitalizations in 2017 for management of respiratory failure and pneumonia. Additional diagnostic data: * Vital signs: Pulse 52, respirations 14, BP 71/41, temperature 96.9 * WBC: 13.1, hemoglobin 8.9, hematocrit 28.6, platelets 241, neutrophils 66.0% * Sodium: 136, potassium 4.9, chloride 101, carbon dioxide 27.2, glucose 263, calcium 8.8, magnesium 2.5 * BUN: 31, creatinine 2.94, GFR 19 * Total bilirubin: 0.5, AST 12, ALT 18, alkaline phosphatase 120 * Total creatine kinase: 93 * Troponin: <0.02 * BNP: 274 * Total protein: 7.8, albumin 3.2 * PT: 10.1, INR 0.9, APTT 24.5 * Urinalysis with trace occult blood and many bacteria. Urine culture indicated. * Urine culture negative * Sputum culture with heavy growth of normal respiratory juan ramon * Blood cultures negative * Chest x-ray showed increasing airspace disease especially within the right upper lobe * CT of the head revealed cerebral white matter hypodensity characteristic of chronic microvascular ischemic disease. There was no evidence of acute infarct , hemorrhage, mass or edema. Patient initially had pinpoint pupils with poor respiratory effort. She received 2 mg of Narcan IV without significant response. Blood sugar was normal. Patient was subsequently intubated and placed on mechanical ventilation. CT of the brain was ordered to rule out intracranial hemorrhage as the patient is chronically anticoagulated. The patient was admitted to the intensive care unit. On ACV 16/500/60% PEEP 10 ; receiving propofol and fentanyl for sedation and sent synchrony. Patient was started on scheduled IV Solu-Medrol, DuoNeb breathing treatments, cefepime and azithromycin for probable pneumonia. Nephrology was consulted to evaluate patient with acute on chronic renal failure. Patient creatinine on admission was 2.94 which is increased from baseline creatinine of 2.5; decreased urine output. Received Bumex 1 mg IV 1. Renal ultrasound showed no hydronephrosis; stable 8mm nonobstructing left renal stone. Extubated on 04/21/2017. Urine output adequate, creatinine has slightly improved. Patient was transferred to hospitalist services on 04/24/17. Ongoing poorly controlled atrial fibrillation despite being on Cardizem and Metoprolol. Gastroenterology was consulted on 05/01/2017 to evaluate for complaints of right -sided abdominal pain. A KUB was performed (04/30/17) to further evaluate her abdominal pain and this revealed gaseous dilatation of colon greatest in the cecal region measuring up to 13 cm. Differential diagnosis includes ileus. A distal colonic obstruction could have a similar appearance. She has a history of small bowel obstruction in 12/2012 and underwent exploratory laparotomy with lysis of adhesions for abdominal pain, probable small bowel obstruction with Dr. Tam. Patient reports most recent colonoscopy was likely 5 years ago- can not recall the findings. Patient continues to be followed by nephrology for acute on chronic kidney disease; plan is for her to have a vascath placed and be started on hemodialysis. Patient had Gastrografin enema, right colon could not be opacified. KUB showed improvement in colonic distension. There was stool in rectal bag. NGT to LIWS. CT of the abdomen/pelvis on 05/02/17 showed persistent nonspecific bowel gas pattern with contrast noted in the colon from the recent Gastrografin enema the cecum remains distended. Rectal catheter is present. No free air or fluid. Small pleural effusions with mild consolidation in the lung bases. Stable small adrenal masses likely representing adenomas. Small nonobstructing left renal calculus. EEG on 05/02/17 showed generalized slowing that may indicate an encephalopathic pattern. No seizures or a lab form discharges were seen. Jolie called on 05/05/17 due to patient's altered mental status and hypoxemia. She was transferred to ICU with a blood gas showing severe hypercarbic acidosis and was immediately intubated. Patient became hypotensive requiring a central line placement and initiation of vasopressor therapy. 05/07/2017: Patient febrile; T- max 100.4. Sputum cultures pending. Follow-up chest x-ray showing persistent bilateral pulmonary opacity and small right pleural effusion, slightly increase in right-sided lung opacity. Started on empiric antibiotics, Levaquin and Cefepime. Off sedation >24 hours; patient continues on CPAP trials. Plan for Vas-Cath placement by interventional radiology scheduled for 05/10/17. Dr. Angelo discussed CODE STATUS with the patient and family; patient requesting to be an FULL CODE. Palliative Care was consulted to assist with symptom management and to discuss with the patient/family the benefits and burdens of her current illnesses and the options regarding future care. . Function/Cognitive Trajectory Patient lives at home with her ; she is independent for all ADLs. Her activity at baseline is limited by her weight. Patient is independent in gait with a cane; and uses a walker for more extensive activity. Patient requires home oxygen and CPAP at night. Shilpa (daughter) states she saw the patient when she was hospitalized in 08/2016 and again 6 months later 03/2017. Per Shilpa , her mother has declined in the past 6 months. She states her mother has becomes more withdrawn and lethargic. Patient spends most of her time in bed and becomes fatigued after being OOB for short periods of time (<30minutes). . Review of Systems ROS Limitations: Intubated, Speech Impaired Constitutional: COMPLAINS OF: Fatigue, Fever (24 hour T-max: 101.1 ), Generalized weakness Ears, nose, mouth, throat: DENIES: Hearing loss Respiratory: COMPLAINS OF: Shortness of breath Cardiovascular: COMPLAINS OF: Dyspnea on Exertion, DENIES: Lower Extremity Edema (trace) Gastrointestinal: COMPLAINS OF: Diarrhea Hematologic/Lymphatics: COMPLAINS OF: Bruising, History of transfusions (2016: Patient transfused with 2 units of PRBC) Neurologic: COMPLAINS OF: Abnormal gait, Poor Balance Past Family Social History Coded Allergies: celecoxib (Unverified Allergy, Severe, SYNCOPE, 04/16/17) Past Medical History Hypertension Atrial fibrillation Type 2 DM Hypothyroidism Hyperlipidemia Peripheral neuropathy History of small bowel obstruction COPD Hx thyroid cancer . Past Surgical History Total thyroidectomy in 2011 secondary to thyroid cancer Partial small bowel resection with lysis of adhesions Cholecystectomy . Reported Medications Proair Hfa 8.5 GM Inh (Albuterol Sulfate) 90 Mcg/Act Aer 2 Puff INH Q4-6H PRN Oxygen tank (Oxygen) 1 Ea Tank 2 Liter IGLESIA.CANULA CONTINUOUS Metoprolol Tartrate 50 Mg Tab 50 Mg PO BID Lantus Solostar Pen Inj (Insulin Glargine) 300 Unit/3 Ml Pen 22 Units SQ HS Vitamin D (Cholecalciferol) 400 Unit Cap 400 Units PO BID Multivitamin Gummies Adul (Multiple Vitamins W/ Minerals) 1 Chw Chw 1 Chew PO BID Eliquis (Apixaban) 2.5 Mg Tab 2.5 Mg PO BID Calcitriol 0.25 Mcg Cap 0.25 Mcg PO DAILY Omeprazole 20 Mg Tab 20 Mg PO BID Gabapentin 100 Mg Cap 100 Mg PO BID Lisinopril 40 Mg Tab 40 Mg PO DAILY Atorvastatin (Atorvastatin Calcium) 20 Mg Tab 20 Mg PO HS Levothyroxine (Levothyroxine Sodium) 125 Mcg Tab 125 Mcg PO DAILY Diltiazem ER 24 HR 300 Mg Lexy 300 Mg PO DAILY . Current Medications Medications (Trade) Dose Ordered Sig/Sloane Route Start Time Stop Time Status Last Admin (NS Flush) 2 ml UNSCH PRN IV FLUSH 04/19/17 08:30 05/05/17 05:01 (NS Flush) 2 ml BID IV FLUSH 04/19/17 09:00 05/08/17 09:30 Miscellaneous Information 1 Q361D XX 04/19/17 08:30 (Chlorhexidine 2% Cloth) Taper DAILY@04 TOP 04/20/17 04:00 04/16/18 03:59 04/26/17 04:00 (Chlorhexidine 2% Cloth) 3 pack UNSCH PRN TOP 04/19/17 08:30 (Eliquis) 2.5 mg BID PO 04/19/17 21:00 Future Hold 05/05/17 09:44 (Lipitor) 20 mg HS PO 04/19/17 21:00 05/07/17 21:03 (Rocaltrol) 0.25 mcg DAILY PO 04/20/17 09:00 05/08/17 09:31 (Synthroid) 125 mcg DAILY@0600 PO 04/20/17 06:00 05/08/17 05:40 (Vitamin D3) 400 units BID PO 04/19/17 21:00 05/08/17 09:32 (Apresoline Inj) 20 mg Q4H PRN IV PUSH 04/21/17 11:30 05/08/17 01:53 (Lopressor Inj) 5 mg Q5M PRN IV PUSH 04/24/17 02:15 05/08/17 00:30 (Theragran M Tab) 1 tab BID PO 04/24/17 10:00 05/08/17 09:31 (Protonix) 20 mg BID PO 04/24/17 09:00 Future Hold 05/05/17 21:48 (Cardizem Cd) 360 mg DAILY PO 04/25/17 09:00 Future Hold 05/05/17 09:44 (Lanoxin) 0.125 mg DAILY PO 04/27/17 09:00 Future Hold 05/05/17 09:44 Sodium Chloride 1,000 ml @ 42 mls/hr [id number] IV 04/27/17 15:00 05/08/17 05:42 (Lopressor) 75 mg BID PO 04/28/17 21:00 Future Hold 05/05/17 21:48 (Pill Splitter) 1 ea UNSCH PRN OTHER 04/30/17 11:00 Sodium Chloride 1,000 ml @ 0 mls/hr Q0M PRN OTHER 04/30/17 13:26 05/02/17 11:00 (Heparin Inj) 8,000 units UNSCH PRN IV FLUSH 04/30/17 13:30 Sodium Chloride 1,000 ml @ 200 mls/hr Q5H PRN IV 04/30/17 13:26 Sodium Chloride 1,000 ml @ 0 mls/hr Q0M PRN OTHER 04/30/17 13:26 (Mannitol Inj) 12.5 gm UNSCH PRN IV 04/30/17 13:30 Albumin Human 100 ml @ 60 mls/hr UNSCH PRN IV 04/30/17 13:30 05/06/17 09:48 (NS Flush) 5 ml UNSCH PRN IV FLUSH 04/30/17 13:30 (Heparin Inj) UNSCH PRN .XX 04/30/17 13:30 05/02/17 11:00 (Gentamicin (Dialysis) Inj) 20 mg UNSCH PRN OTHER 04/30/17 13:30 05/06/17 09:47 (Zofran Inj) 4 mg UNSCH PRN IV PUSH 04/30/17 13:30 (Tylenol) 650 mg UNSCH PRN PO 04/30/17 13:30 05/07/17 16:45 (Benadryl) 25 mg UNSCH PRN PO 04/30/17 13:30 (Nitrostat Sl) 0.4 mg UNSCH PRN SL 04/30/17 13:30 (Catapres) 0.1 mg UNSCH PRN PO 04/30/17 13:30 (Epogen Inj) 10,000 units UNSCH PRN IV PUSH 04/30/17 13:30 05/06/17 09:23 (Gelfoam 12 Mm/7 Mm Top) 1 foam UNSCH PRN TOP 04/30/17 13:30 (Levemir Inj) 10 units Q12HR SQ 05/01/17 21:00 05/08/17 09:32 (NS Flush) UNSCH PRN IV FLUSH 05/01/17 12:15 (Heparin Inj) UNSCH PRN IV FLUSH 05/01/17 12:15 (Morphine Inj) 0.5 mg Q4H PRN IV 05/02/17 10:00 Future Hold (Lactinex) 1 tab TID PO 05/03/17 18:00 05/08/17 09:31 (Heparin Inj) 5,000 units Q8HR SQ 05/05/17 14:00 05/08/17 05:41 Norepinephrine Bitartrate 4 mg/ Sodium Chloride 250 ml @ 7.5 mls/hr TITRATE PRN IV 05/06/17 03:30 05/06/17 03:05 (Atropine Inj) 1 mg Q15M PRN IV PUSH 05/06/17 06:15 (Peridex 0.12% Liq) 15 ml BID@08,20 MT 05/06/17 20:00 05/08/17 09:30 Propofol 100 ml @ 3.57 mls/hr TITRATE PRN IV 05/06/17 09:15 (NovoLOG SUPPLEMENTAL SCALE) 1 Q6HR SQ 05/06/17 12:00 05/08/17 00:12 (Prevacid Odt) 30 mg DAILY NG 05/06/17 09:15 05/08/17 09:31 (Duoneb Neb) 1 ampule Q6HR NEB NEB 05/06/17 10:00 05/08/17 08:29 (Albuterol Neb) 2.5 mg Q2HR NEB PRN NEB 05/06/17 09:15 (Tears Naturale Opth Soln) 1 drop Q8HR EACH EYE 05/06/17 14:00 05/08/17 05:41 Cefepime HCl 2000 mg/Sodium Chloride 100 ml @ 200 mls/hr Q8H IV 05/07/17 18:00 05/08/17 09:33 Levofloxacin/ Dextrose 100 ml @ 100 mls/hr Q24H IV 05/07/17 17:00 05/07/17 16:46 (Reglan Inj) 5 mg Q8HR IV PUSH 05/07/17 22:00 05/08/17 05:40 . Family History Patient's sister has a goiter (patient s/p thyroidectomy secondary to thyroid cancer in 2012). Patient's daughter from breast cancer. . . Substance Use Tobacco: Patient denies Alcohol: Occasionally drinks wine Prescription med abuse: Patient denies Illicits: Patient denies . Psychosocial History Patient is originally from [place]. She had 3 children. Daughter (Shilpa) lives in [place], [place] and son (Jason) lives in [place], [place]. Patient had another daughter who from breast cancer. Patient was remarried after her ; she is currently to her second (Vitaliy). 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 . Spiritual/Cultural Factors Cheondoism messi . Date completed: 05/08/2017 . Health Care Surrogate(s): Health care surrogate form completed 05/08/2017 designating the patient's daughter (Shilpa) as the healthcare surrogate decision maker. The patient's son (Jason) is the alternate health care surrogate decision maker. Documented care wishes: Healthcare surrogate form was completed 05/08/2017. No other documented care wishes have been completed. Plan to discuss written advanced directives/living will after the patient has been extubated in the upcoming days. . Today's verbally stated goals: Dr. Angelo discussed CODE STATUS with the patient and family on 05/07/2017; patient requesting to be changed to FULL CODE at that time. Patient again today 05/18/2017 indicating aggressive goals. . Family/friends goals: Patient's daughter, Shilpa, indicates she wants to support her mother's medical treatment goals. At the same time, she is realistic and does not want her mother's suffering to be prolonged if she continues to decline. . Ethical and Legal Issues Per [place] statutes, in the absence of written advanced directives healthcare proxy decision-making falls to the patient's (Vitaliy). Physical Exam Vital Signs Date Time Temp Pulse Resp B/P (MAP) Pulse Ox O2 Delivery O2 Flow Rate FiO2 05/08/17 08:30 100 40 05/08/17 08:30 40 05/08/17 06:00 106 05/08/17 04:08 100 40 05/08/17 04:00 40 05/08/17 04:00 106 05/08/17 04:00 99.1 106 18 157/67 (97) 100 05/08/17 02:00 106 05/08/17 01:25 100 40 05/08/17 00:00 98.5 120 18 160/70 (100) 100 05/08/17 00:00 40 05/08/17 00:00 104 05/07/17 22:00 105 05/07/17 20:58 100 40 05/07/17 20:00 98.8 120 28 160/72 (101) 100 05/07/17 20:00 40 05/07/17 20:00 120 05/07/17 19:00 100 Mechanical Ventilator 40 05/07/17 18:00 106 05/07/17 16:14 100 40 05/07/17 16:00 40 05/07/17 16:00 101.1 102 20 163/73 (103) 100 05/07/17 16:00 102 05/07/17 14:00 108 05/07/17 12:00 103 05/07/17 12:00 40 05/07/17 12:00 98.7 108 23 140/65 (90) 100 05/07/17 11:45 100 40 05/07/17 10:00 106 . Exam CONSTITUTIONAL/GENERAL: This is an obese, elderly female patient in no acute distress TUBES/LINES/DRAINS: OGT, ETT, Nelson catheter, digni-shield, soft restraints, Vas -Cath, PIV 2 SKIN: No jaundice, rashes, or lesions. Ecchymoses on upper extremities. No wounds seen anteriorly. Skin temperature appropriate. Not diaphoretic. HEAD: Atraumatic. Normocephalic. EYES: Pupils equal and round and reactive. Extraocular motions intact. No scleral icterus. No injection or drainage. Fundi not examined. ENT: Hearing grossly normal. Nose without bleeding or purulent drainage. Throat without visible erythema, exudates, masses, or lesions. NECK: Trachea midline. Supple, nontender. No palpable thyroid enlargement or nodularity. CARDIOVASCULAR: Sinus tachycardic. No Gallops, or rubs. No JVD. Peripheral pulses symmetric. RESPIRATORY/CHEST: Remains intubated, tolerating CPAP. Coarse air exchange. No wheezes, rales, or rhonchi. GASTROINTESTINAL: Abdomen soft, non-tender, nondistended. No hepato-splenomegaly , or palpable masses. No guarding. Bowel sounds present. GENITOURINARY: Without palpable bladder distension. Nelson catheter in place. MUSCULOSKELETAL: Extremities without clubbing or cyanosis. Trace edema in bilateral lower extremities; hand swollen. No mottling or clubbing. LYMPHATICS: No palpable cervical or supraclavicular adenopathy. NEUROLOGICAL: Awake and alert of sedation. Able to answer questions by nodding head yes/no; able to communicate with pen and paper. Follows commands. Cognitively sharp. PSYCHIATRIC: No obvious anxiety/depression. no apparent hallucinations or other psychotic thought process. . Diagnostic Tests Laboratory Laboratory Tests Test 05/05/17 22:39 05/06/17 00:46 05/06/17 04:43 05/06/17 09:30 Blood Gas Puncture Site LT RADIAL LT RADIAL Blood Gas Patient Temperature 98.6 98.6 Blood Gas HCO3 28 mmol/L (22-26) 28 mmol/L (22-26) Blood Gas Base Excess 1.6 mmol/L (-2-2) 3.6 mmol/L (-2-2) Blood Gas Oxygen Saturation 87 % (90-100) 96 % (90-100) Arterial Blood pH 7.24 (7.380-7.420) 7.42 (7.380-7.420) Arterial Blood Partial Pressure CO2 68 mmHg (38-42) 44 mmHg (38-42) Arterial Blood Partial Pressure O2 62 mmHg (61-120) 94 mmHg (61-120) Arterial Blood Oxygen Content 8.4 Vol % (12.0-20.0) 9.7 Vol % (12.0-20.0) Arterial Blood Carboxyhemoglobin 2.1 % (0-4) 2.1 % (0-4) Arterial Blood Methemoglobin 0.8 % (0-2) 0.8 % (0-2) Blood Gas Hemoglobin 6.8 G/DL (12.0-16.0) 7.1 G/DL (12.0-16.0) Oxygen Delivery Device BiPAP VENTILATOR Blood Gas Ventilator Setting [id number] PRVC/AC Blood Gas Inspired Oxygen 50 % 50 % White Blood Count 12.8 TH/MM3 (4.0-11.0) Red Blood Count 2.02 MIL/MM3 (4.00-5.30) Hemoglobin 6.0 GM/DL (11.6-15.3) Hematocrit 19.3 % (35.0-46.0) Mean Corpuscular Volume 95.5 FL (80.0-100.0) Mean Corpuscular Hemoglobin 29.8 PG (27.0-34.0) Mean Corpuscular Hemoglobin Concent 31.2 % (32.0-36.0) Red Cell Distribution Width 14.6 % (11.6-17.2) Platelet Count 164 TH/MM3 (150-450) Mean Platelet Volume 8.0 FL (7.0-11.0) Neutrophils (%) (Auto) 81.9 % (16.0-70.0) Lymphocytes (%) (Auto) 6.9 % (9.0-44.0) Monocytes (%) (Auto) 10.1 % (0.0-8.0) Eosinophils (%) (Auto) 0.8 % (0.0-4.0) Basophils (%) (Auto) 0.3 % (0.0-2.0) Neutrophils # (Auto) 10.5 TH/MM3 (1.8-7.7) Lymphocytes # (Auto) 0.9 TH/MM3 (1.0-4.8) Monocytes # (Auto) 1.3 TH/MM3 (0-0.9) Eosinophils # (Auto) 0.1 TH/MM3 (0-0.4) Basophils # (Auto) 0.0 TH/MM3 (0-0.2) CBC Comment AUTO DIFF Differential Total Cells Counted 100 Neutrophils % (Manual) 86 % (16-70) Band Neutrophils % 5 % (0-6) Lymphocytes % 3 % (9-44) Monocytes % 4 % (0-8) Eosinophils % 2 % (0-4) Neutrophils # (Manual) 11.6 TH/MM3 (1.8-7.7) Nucleated Red Blood Cells 4 /100 WBC (0-0) Differential Comment FINAL DIFF MANUAL Platelet Estimate NORMAL (NORMAL) Platelet Morphology Comment NORMAL (NORMAL) Stomatocytes 1+ (NORMAL) Blood Urea Nitrogen 48 MG/DL (7-18) Creatinine 4.79 MG/DL (0.50-1.00) Random Glucose 174 MG/DL (74-106) Calcium Level 7.9 MG/DL (8.5-10.1) Sodium Level 139 MEQ/L (136-145) Potassium Level 3.5 MEQ/L (3.5-5.1) Chloride Level 102 MEQ/L (98-107) Carbon Dioxide Level 27.7 MEQ/L (21.0-32.0) Anion Gap 9 MEQ/L (5-15) Estimat Glomerular Filtration Rate 11 ML/MIN (>89) B-Type Natriuretic Peptide 1399 PG/ML (0-100) Stool C. difficile Toxin (PCR) NEGATIVE (NEGATIVE) Stl C. difficile Toxin Epiderm 027 PRESUMPTIVE NEGATIVE Test 05/06/17 13:20 05/06/17 23:22 05/07/17 04:24 05/07/17 13:10 Hemoglobin 5.8 GM/DL (11.6-15.3) 8.9 GM/DL (11.6-15.3) 8.7 GM/DL (11.6-15.3) 9.0 GM/DL (11.6-15.3) Hematocrit 18.6 % (35.0-46.0) 26.7 % (35.0-46.0) 26.0 % (35.0-46.0) 28.0 % (35.0-46.0) White Blood Count 16.1 TH/MM3 (4.0-11.0) Red Blood Count 2.90 MIL/MM3 (4.00-5.30) Mean Corpuscular Volume 89.5 FL (80.0-100.0) Mean Corpuscular Hemoglobin 29.9 PG (27.0-34.0) Mean Corpuscular Hemoglobin Concent 33.4 % (32.0-36.0) Red Cell Distribution Width 16.7 % (11.6-17.2) Platelet Count 130 TH/MM3 (150-450) Mean Platelet Volume 8.1 FL (7.0-11.0) Neutrophils (%) (Auto) 86.7 % (16.0-70.0) Lymphocytes (%) (Auto) 5.3 % (9.0-44.0) Monocytes (%) (Auto) 7.1 % (0.0-8.0) Eosinophils (%) (Auto) 0.5 % (0.0-4.0) Basophils (%) (Auto) 0.4 % (0.0-2.0) Neutrophils # (Auto) 13.9 TH/MM3 (1.8-7.7) Lymphocytes # (Auto) 0.9 TH/MM3 (1.0-4.8) Monocytes # (Auto) 1.1 TH/MM3 (0-0.9) Eosinophils # (Auto) 0.1 TH/MM3 (0-0.4) Basophils # (Auto) 0.1 TH/MM3 (0-0.2) CBC Comment DIFF FINAL Differential Comment Blood Urea Nitrogen 33 MG/DL (7-18) Creatinine 3.80 MG/DL (0.50-1.00) Random Glucose 128 MG/DL (74-106) Albumin 2.2 GM/DL (3.4-5.0) Calcium Level 7.7 MG/DL (8.5-10.1) Phosphorus Level 0.6 MG/DL (2.5-4.9) 2.0 MG/DL (2.5-4.9) Sodium Level 142 MEQ/L (136-145) Potassium Level 3.0 MEQ/L (3.5-5.1) 3.7 MEQ/L (3.5-5.1) Chloride Level 103 MEQ/L (98-107) Carbon Dioxide Level 26.4 MEQ/L (21.0-32.0) Anion Gap 13 MEQ/L (5-15) Estimat Glomerular Filtration Rate 14 ML/MIN (>89) Digoxin Level 1.3 NG/ML (0.8-2.0) Test 05/08/17 05:05 White Blood Count 14.7 TH/MM3 (4.0-11.0) Red Blood Count 3.19 MIL/MM3 (4.00-5.30) Hemoglobin 9.4 GM/DL (11.6-15.3) Hematocrit 28.8 % (35.0-46.0) Mean Corpuscular Volume 90.3 FL (80.0-100.0) Mean Corpuscular Hemoglobin 29.6 PG (27.0-34.0) Mean Corpuscular Hemoglobin Concent 32.7 % (32.0-36.0) Red Cell Distribution Width 17.7 % (11.6-17.2) Platelet Count 119 TH/MM3 (150-450) Mean Platelet Volume 8.2 FL (7.0-11.0) Neutrophils (%) (Auto) 92.9 % (16.0-70.0) Lymphocytes (%) (Auto) 1.4 % (9.0-44.0) Monocytes (%) (Auto) 5.5 % (0.0-8.0) Eosinophils (%) (Auto) 0.2 % (0.0-4.0) Basophils (%) (Auto) 0.0 % (0.0-2.0) Neutrophils # (Auto) 13.7 TH/MM3 (1.8-7.7) Lymphocytes # (Auto) 0.2 TH/MM3 (1.0-4.8) Monocytes # (Auto) 0.8 TH/MM3 (0-0.9) Eosinophils # (Auto) 0.0 TH/MM3 (0-0.4) Basophils # (Auto) 0.0 TH/MM3 (0-0.2) CBC Comment DIFF FINAL Differential Comment Blood Urea Nitrogen 39 MG/DL (7-18) Creatinine 4.56 MG/DL (0.50-1.00) Random Glucose 162 MG/DL (74-106) Calcium Level 8.0 MG/DL (8.5-10.1) Phosphorus Level 1.9 MG/DL (2.5-4.9) Magnesium Level 1.9 MG/DL (1.5-2.5) Sodium Level 140 MEQ/L (136-145) Potassium Level 3.6 MEQ/L (3.5-5.1) Chloride Level 103 MEQ/L (98-107) Carbon Dioxide Level 22.5 MEQ/L (21.0-32.0) Anion Gap 15 MEQ/L (5-15) Estimat Glomerular Filtration Rate 11 ML/MIN (>89) . Result Diagram: 05/08/17 0505 05/08/17 0505 Microbiology Microbiology Date/Time Source Procedure Growth Status 05/06/17 09:30 Stool Stool Stool Occult Blood (LAYLA) - Final HEMOCCULT POSITIVE Complete 05/07/17 16:24 Sputum Endotracheal Gram Stain - Final Resulted 05/07/17 16:24 Sputum Endotracheal Sputum Culture Pending Resulted Imaging Last 72 hours Impressions Chest X-Ray 05/08/17 0600 Signed Impressions: Service Date/Time: Monday, May 08, 2017 03:23 - CONCLUSION: 1. Cardiomegaly and findings of vascular congestion without overt failure. There has been no significant change when compared to the prior exam. Brian Mcmanus MD Chest X-Ray 05/07/17 0600 Signed Impressions: Service Date/Time: Sunday, May 07, 2017 05:49 - CONCLUSION: Persistent bilateral pulmonary opacity and small right pleural effusion. Slight increase in right-sided lung opacity. Hussain Green MD Chest X-Ray 05/06/17 0000 Signed Impressions: Service Date/Time: Saturday, May 06, 2017 13:29 - CONCLUSION: 1. Interval retraction of the left IJ central line with tip now in the left brachycephalic vein. Heath Raza MD Chest X-Ray 05/06/17 0000 Signed Impressions: Service Date/Time: Saturday, May 06, 2017 03:22 - CONCLUSION: Left IJ central venous catheter courses superiorly in the region of the SVC with the tip in the region of distal right internal jugular vein or right brachiocephalic vein. This could be retracted 5 cm. No evidence of pneumothorax. Hussain Green MD . Procedures 04/19/17: Intubation 04/19/17: OGT placement 04/21/17: Extubation 05/01/17: NGT placed. 05/05/17: Reintubation; Left IJ central line placement Patient/Family Conference Present at Family Conference: Met with patient and daughter at bedside, her met with patient's daughter privately and the family conference room. . Family Conference Location: Bedside, Consult Room Issues Discussed: * Palliative care role, purpose, approach * Additional medical, psychosocial, and spiritual history * Patients general health, functional status, and cognitive changes in the months leading up to the current hospitalization * Patient/family understanding of the current medical problems * Patient/family understanding of prognosis * Patients goals of care as best understood from advance directives and/or conversations and/or values * Current medical treatment options and benefits/burdens of those options * Likely scenarios comparing ongoing aggressive care with a transition to comfort measures only * Questions answered to the best of my ability * Palliative care contact information provided . Assessment and Plan Disease Oriented Problem List: (1) Hypothyroidism (2) Hyperlipidemia (3) Diabetes (4) Pneumonia (5) Atrial fibrillation (6) Acute on chronic kidney failure (7) COPD with acute exacerbation (8) Acute metabolic encephalopathy (9) Peripheral neuropathy (10) History of small bowel obstruction (11) History of thyroid cancer Symptom Scale: (1) Debility (2) Dyspnea (3) Pain Pertinent Non-Medical Issues Psychosocial: Patient is originally from [place]. She had 3 children. Daughter (Shilpa) lives in [place], [place] and son (Jason) lives in [place], [place]. Patient had another daughter who from breast cancer. Patient was remarried after her ; she is currently to her second (Vitaliy). 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 She has 25 grandchildren/great- grandchildren. Spiritual: [employer] messi Legal:Health care surrogate form completed 05/08/2017 designating the patient's daughter (Shilpa) as the healthcare surrogate decision maker. The patient's son (Jason) is the alternate health care surrogate decision maker. Ethical issues impacting care: No known ethical issues impacting care at this time. . Important Contacts Vitaliy Sales, spouse: [phone] or [phone] (cell) Shilpa Gonzales daughter/[facility]: [phone] Jason Sales son/alternate [facility]: [phone] . Prognosis Patient is an 82-year-old female who has been admitted 3 times in 2017 for management of respiratory failure/pneumonia. She has required intubation/ mechanical ventilation x 2 since her admission on 04/19/2017. Given patient's complex medical history with recurrent hospitalizations, advanced age and recent decline in functional status, she is high risk for ongoing setbacks and complications. . Code Status: Full Code Plan * FULL CODE * Health care surrogate form completed 05/08/2017 designating the patient's daughter (Shilpa) as the healthcare surrogate decision maker. The patient's son (Jason) is the alternate health care surrogate decision maker. * Discussed patient with Dr. Angelo. * Dr. Angelo discussed CODE STATUS with the patient and family on 05/07/2017; patient requesting to be changed to FULL CODE at that time. Patient again today 05/18/2017 indicating aggressive goals. Plan for discharge to SNF for rehabilitation. * Symptom management-dyspnea: Patient remains intubated, currently tolerating CPAP. She has been intubated 2 times since being admitted on 07/20/16. Sputum culture 05/07/2017 pending. Follow-up chest x-ray on 05/07/2017 showing enlarged cardiac silhouette in transverse diameter. There is prominence of the central pulmonary vasculature with indistinct vascular margins compatible with vascular congestion but no evidence of overt failure. There is left lower lobe atelectasis versus pneumonia. * Symptom management-pain: Patient showing no signs or symptoms of nonverbal pain on exam; she denies pain when asked. Possible causes of pain include immobility, bedbound status, invasiveness lines, obesity, intubation, infection. Patient is of sedation; no PRN pain medications are ordered at this time. Will continue to monitor and make recommendations as appropriate. * Symptom management-disability: Patient lives at home with her ; she is independent for all ADLs. Her activity at baseline is limited by her weight. Patient is independent in gait with a cane; and uses a walker for more extensive activity. Patient requires home oxygen and CPAP at night. Shilpa ( daughter) states she saw the patient when she was hospitalized in 08/2016 and again 6 months later 03/2017. Per Shilpa, her mother has declined in the past 6 months. She states her mother has becomes more withdrawn and lethargic. Patient spends most of her time in bed and becomes fatigued after being OOB for short periods of time (<30minutes). Goal is to discharge patient to SNF for rehabilitation before returning home. * Patient has been admitted 3 times in 2017 for management of respiratory failure/pneumonia. She has required intubation/mechanical ventilation x 2 since her admission on 04/19/2017. Given patient's complex medical history with recurrent hospitalizations, advanced age and recent decline in functional status , she is high risk for ongoing setbacks and complications. * Palliative care contact information was provided to the family * Palliative care will continue to follow patient throughout this hospitalization to establish trust, assist with symptom management and clarification of medical treatment goals. . Thank you for the opportunity to participate in the care of Ms. Sales. . Attestation To help prompt me to consider important information that might be impacting today's encounter and assessment, information from prior notes written by myself or my colleagues may have been "brought forward" into today's note. My signature on this note, however, is an attestation that I personally performed the exam, history, and/or decision-making noted today, and, unless otherwise indicated, the interactions with patient, family, and staff as well as the review of records all occurred today. I also attest that the listed assessment and stated plan reflect my best clinical judgment today based on the combination of historical information, prior notes, and today's exam/ interactions. When time spent is documented, it refers only to time spent today by the signer, or if indicated, combined time spent today by collaborating physician/nurse practitioner. . Yulissa Barraza May 08, 2017 11:01
--- NOTE | 2017-05-08 14:58 | HHI.NPPN ---
Subjective History of Present Illness Patient is a 82-year-old with sepsis, COPD, intubation, diabetes, acute renal failure and chronic kidney disease. Additional Remarks Patient remain on the vent, awake, not in distress. Objective Data Data Vital Signs Date Time Temp Pulse Resp B/P (MAP) Pulse Ox O2 Delivery O2 Flow Rate FiO2 05/08/17 12:27 100 40 05/08/17 12:00 40 05/08/17 12:00 98.7 107 16 155/67 (96) 100 05/08/17 12:00 107 05/08/17 10:00 108 05/08/17 08:30 100 40 05/08/17 08:30 40 05/08/17 08:00 40 05/08/17 08:00 99.0 106 22 170/75 (106) 100 05/08/17 08:00 106 05/08/17 07:00 100 Mechanical Ventilator 6.00 40 05/08/17 06:00 106 05/08/17 04:08 100 40 05/08/17 04:00 40 05/08/17 04:00 106 05/08/17 04:00 99.1 106 18 157/67 (97) 100 05/08/17 02:00 106 05/08/17 01:25 100 40 05/08/17 00:00 98.5 120 18 160/70 (100) 100 05/08/17 00:00 40 05/08/17 00:00 104 05/07/17 22:00 105 05/07/17 20:58 100 40 05/07/17 20:00 98.8 120 28 160/72 (101) 100 05/07/17 20:00 40 05/07/17 20:00 120 05/07/17 19:00 100 Mechanical Ventilator 40 05/07/17 18:00 106 05/07/17 16:14 100 40 05/07/17 16:00 40 05/07/17 16:00 101.1 102 20 163/73 (103) 100 05/07/17 16:00 102 -: 05/08/17 0505 05/08/17 0505 Microbiology 05/07/17 Gram Stain - Final, Resulted 05/07/17 Sputum Culture - Preliminary, Resulted LIGHT GROWTH NORMAL RESPIRATORY GORDON... Physical Exam General Appearance: No Acute Distress, Comfortable, Obese Neck Neck Exam: Neck Supple Pulmonary Resp Exam: Decreased Bases Cardiology CV Exam: Arrhythmia Gastrointestinal/Abdomen GI Exam: Bowel Sounds Hypoactive Extremeties Extremities Exam: Trace Edema Neurologic Neuro Exam: Alert, Awake Psychiatric Psych Exam: Appropriate Responses Assessment/Plan Problem List: (1) Acute on chronic renal insufficiency ICD Codes: N28.9 - Disorder of kidney and ureter, unspecified; N18.9 - Chronic kidney disease, unspecified Status: Acute Plan: Patient is in acute renal failure and had chronic kidney disease ESRD with no recovery no recovery need to hold Eliquis and give heparin place PermCath next Monday may need AVF as well GI and colorectal surgery following the patient. HD done Monday and 3 liters removed. weaning per CCM next HD tomorrow (2) Hypertension ICD Codes: I10 - Hypertension Status: Acute Plan: Blood pressure was low (3) Diabetes ICD Codes: E11.9 - Type 2 diabetes mellitus without complications Status: Acute Plan: Continue to monitor (4) COPD with acute exacerbation ICD Codes: J44.1 - Chronic obstructive pulmonary disease with (acute) exacerbation Plan: extubated Problem Qualifiers (1) Diabetes: Tonja Grewal MD May 08, 2017 14:58
--- NOTE | 2017-05-08 15:00 | HHI.CCPN ---
Subjective Remarks/Hospital Course The patient is an 82 year old female past with past medical history significant for hypertension, atrial fibrillation, diabetes mellitus, obesity, hypothyroidism, hyperlipidemia, diabetic neuropathy, who was seen in ED 3 days ago bronchospasm. She has COPD/Asthma and restrictive lung disease related to her obesity. Patient was treated for reactive airway disease, given breathing treatments and was discharged on as needed inhalers. Patient was brought in today by her as she was having shortness of breath and on the way to the ED when she slumped over in the car. In the emergency department she showed agonal breathing, she was intubated for airway protection emergently. Patient was given Solu-Medrol and breathing treatments and was placed on the mechanical ventilation. Chest x-ray showed bilateral infiltrates concerning for pneumonia. CT of the head was negative. I evaluated the patient in the ICU. She is on minimal sedation and mild attempts to wake up and intermittently tries to follows commands. She still on high oxygen requirement FiO2 is 60% with a PEEP of 5. I have increased the PEEP to 10. I have started the patient on scheduled IV Solu-Medrol, DuoNeb breathing treatments, cefepime and azithromycin for probable pneumonia. 04/20 Remains intubated, off sedation following commands. Currently FiO2 had been weaned to 40%. Urine output 950 ml since admission. Start SBT, Bumex 1 mg IV x1. 04/21: Tolerating CPAP better today, Appears calm following commands. UO adequate, though creat increasing. Cultures remain negative 04/22: Extubated yesterday required BiPAP overnight. Currently on nasal cannula slightly tachypneic but able to talk in full sentences maintaining oxygen saturation 04/23: Breathing more comfortably today on nasal cannula. Daughter At the bedside. Urine output adequate, creatinine has slightly improved 05/05: Rapid response team was called due to patient's altered mental status and hypoxemia. She was immediately transferred to ICU with a blood gas showing severe hypercarbic acidosis and was immediately intubated. She also became slightly hypotensive requiring a central line placement and initiation of vasopressor therapy Subjective 05/06: Awake and alert but not following commands. Nods head but inappropriately to questions. CAM ICU positive. Sedation is currently been held. Off norepinephrine. Currently nothing by mouth. 05/07: Tmax 100.4 Patient awake following commands. Sedation off a greater than 24-hour. Discussion of CODE STATUS with patient and daughter, patient states she requests to be full code explanation provided in detail. CODE STATUS changed to full code. Sputum cultures pending. Empiric antibiotics initiated Levaquin and cefepime. Patient continues on CPAP trials. The patient lasted 13 hours yesterday on CPAP. Plan for Vas-Cath placement by interventional radiology scheduled for 05/10. 05/08: Patient continues on CPAP trials, alert and responsive, denies pain. Plan for obtaining SBT parameters today a successful will extubate. Sputum culture revealed initial preliminary results of budding yeasts, micafungin added to medication regimen. Patient's scheduled by IR placement of Vas-Cath in a.m.. Patient continues on Reglan and nothing by mouth status per GI, large amounts of diarrhea/loose stools, plan for KUB this afternoon. Objective Vital Signs Date Time Temp Pulse Resp B/P (MAP) Pulse Ox O2 Delivery O2 Flow Rate FiO2 05/08/17 12:27 100 40 05/08/17 12:00 98.7 107 16 155/67 (96) 05/08/17 07:00 Mechanical Ventilator 6.00 Intake and Output 05/08/17 05/08/17 05/08/17 07:59 15:59 23:59 Intake Total 1627 ml Output Total 400 ml Balance 1227 ml Result Diagram: 05/08/17 0505 05/08/17 0505 Other Results Microbiology Date/Time Source Procedure Growth Status 05/06/17 09:30 Stool Stool Stool Occult Blood (LAYLA) - Final HEMOCCULT POSITIVE Complete Imaging Last Impressions Chest X-Ray 05/06/17 0000 Signed Impressions: Service Date/Time: Saturday, May 06, 2017 03:22 - CONCLUSION: Left IJ central venous catheter courses superiorly in the region of the SVC with the tip in the region of distal right internal jugular vein or right brachiocephalic vein. This could be retracted 5 cm. No evidence of pneumothorax. Hussain Green MD Abdomen X-Ray 05/04/17 0600 Signed Impressions: Service Date/Time: May 06:03 - CONCLUSION: Contrast through to the rectum. Basically stable dilatation of the proximal colon Duncan Delgado MD Enema w/Water Soluble 05/02/17 0000 Signed Impressions: Service Date/Time: Tuesday, May 02, 2017 08:02 - CONCLUSION: 1. Limited suboptimal exam. The cecum and right colon could not be opacified despite repeated attempts. 2. Residual stool and mild to moderate diverticulosis. Guevara Crowell MD Abdomen/Pelvis CT 05/02/17 0000 Signed Impressions: Service Date/Time: Tuesday, May 02, 2017 19:58 - CONCLUSION: 1. Nonspecific bowel gas pattern remains with contrast noted in the colon from the recent Gastrografin enema. The cecum remains distended. A rectal catheter is present. 2. No free air or fluid. 3. Small pleural effusions with mild consolidation in the lung bases. 4. Stable small adrenal masses likely representing adenomas. 5. Small nonobstructing left renal calculus. Guevara Crowell MD Catheter Placement X-Ray 05/01/17 0000 Signed Impressions: Service Date/Time: Monday, May 01, 2017 11:45 - CONCLUSION: Uncomplicated line placement as above. Brian Mcmanus MD Renal Ultrasound 04/20/17 0000 Signed Impressions: Service Date/Time: April 15:07 - CONCLUSION: 1. There is no hydronephrosis. 2. Stable 8mm nonobstructing left renal stone. Duncan Avery MD Head CT 04/19/17 0702 Signed Impressions: Service Date/Time: Wednesday, April 19, 2017 07:29 - CONCLUSION: 1. Cerebral white matter hypodensity characteristic of chronic microvascular ischemic disease. 2. No evidence of acute infarct, hemorrhage, mass or edema. Renato Coughlin MD Objective Remarks GEN: 82-year-old female, currently orotracheally intubated responsive and interactive Head is normocephalic atraumatic. ENT: Oropharynx without erythema access. Orotracheally intubated. Neck: Right IJ catheter C/D/I and intact without erythema or drainage. Cardiovascular: RRR. S1, S2. No S4. Without murmur Lungs: Diminished breath sounds bilaterally. Few crackles appreciated in the bilateral bases. Abdomen: Abdomen morbidly obese, soft nontender. No guarding, rebound, or rigidity. Normoactive bowel sounds Extremities: 1+ edema/anasarca Neurologic: RASS 0. Pupils are symmetrical 3 mm and reactive to light bilaterally. Patient following commands communicating by nodding of head appropriately. Moves all 4 extremity spontaneously. Date of Insertion: May 05, 2017 Date of Removal: May 07, 2017 Line: Central Venous Catheter Side: Left Location: Jugular A/P Assessment and Plan NEURO/PSYCH: Acute metabolic encephalopathy - Propofol for for vent synchrony while intubated, and canal discontinued. Patient currently has propofol on hold continuous CPAP trials while watching television denies discomfort - Goal of RASS -2 - Daily sedation vacation - CT of the head negative for acute findings, holding gabapentin - Morphine when necessary pain (held) RESP: Acute hypoxemic respiratory failure Pneumonia COPD with exacerbation Restrictive lung disease - Extubated 04/21. Reintubated 05/05 - PRVC 18/500//11/03 Ventilator bundle -DuoNebs 05/07 chest a-pyi-komgr-sided lung opacity Continue CPAP trials 05/07 sputum culture- budding yeast, Micafungin started CV: Chronic A. fib Transient hypotension -Currently off norepinephrine. Goal to maintain MAP greater than equal to 65 - Rate controlled atrial fibrillation -Holding Apixaban currently. Continue subcutaneous heparin - Anticoagulation hold for anemia.. Resume when clinically indicated -Currently holding diltiazem 360 mill grams daily, metoprolol 100 mg twice a day. 05/07- digoxin level 1.3 . Hold for now. Last documented level 1.8 Currently normal saline at 42 cc an hour - On atorvastatin 20 mg daily for dyslipidemia. - F/U digoxin level in am GI: Colonic ileus Gastrografin enema 05/02. Proximal colonic dilatation. Patient is having bowel movements. Liquid diarrhea Famotidine for GI prophylaxis On metoclopramide 5 mg IV every 8 hours for colonic ileus per GI. Check KUB : Acute on chronic kidney disease Secondary hyperparathyroidism - Nephrology -Dr. Grewal - Monitor renal function closely. Nelson catheter. - Hemodialysis per nephrology. Currently on Monday/ and Monday - IR for permacath 05/10 - Continue Calciferol 0.25 mcg daily for secondary hyperparathyroidism ID: Severe sepsis resolved Pneumonia - Blood sputum and urine culture, all negative to date - Empiric cefepime and azithromycin for 7-10 days course complete HEME: Leukocytosis Normocytic anemia - Monitor CBC, CMP, INR -Holding apixaban - Ordered 2 units PRBCs. Unable to get ahold for transfusion permission. Not emergent so will wait until healthcare PROXY available ENDO: Hypothyroidism Type 2 diabetes - Continue levothyroxine at 125 g daily, sliding-scale insulin - SSI with every 6 hours Accu-Cheks on novulog to maintain euglycemia. Holding insulin detemir 10 units twice a day while nothing by mouth MSK: OA/OP Continue cholecalciferol 400 units twice a day PT evaluate and treat PROPH: - Bilateral lower extremity SCDs, heparin subcutaneous, nimodipine LINES: -Left IJ central line placed 05/05 . We'll need to be retracted 5 cm as currently going a right IJ Critical Care: The total critical care time was 30 minutes. Time to perform other separately billable procedures was not included in the critical care time. 05/07: Discussed with Vitaliy Sales and daughter. Full CODE STATUS. All family members acknowledge understanding and present in room during discussion. CODE STATUS will be changed. Palliative care consulted as well for goals of care. 05/08: Palliative of care meeting this afternoon, patient instituted daughter as POA. Physician Flavia Hernandez MD May 08, 2017 15:00
[2017-05-08] MEDS: MICAFUNGIN INJ 100 MG in SODIUM CHLORIDE 0.9% INJ 100 ML IV SCH (15:35)
--- NOTE | 2017-05-08 16:03 | ECHRPT ---
Indication: EF assessment of CHF CONCLUSIONS Mild concentric left ventricular hypertrophy. Normal left ventricular size. BP: / HR: Rhythm: Sinus MEASUREMENTS (Male / Female) Normal Values Technical Quality:Fair 2D ECHO LV Diastolic Diameter PLAX 3.7 cm 4.2 - 5.9 / 3.9 - 5.3 cm LV Systolic Diameter PLAX 2.8 cm IVS Diastolic Thickness 1.2 cm 0.6 - 1.0 / 0.6 - 0.9 cm LVPW Diastolic Thickness 1.2 cm 0.6 - 1.0 / 0.6 - 0.9 cm LV Relative Wall Thickness 0.6 RV Internal Dim ED PLAX 3.9 cm LA Systolic Diameter LX 3.8 cm 3.0 - 4.0 / 2.7 - 3.8 cm DOPPLER AV Peak Velocity 329.0 cm/s AV Peak Gradient 43.3 mmHg AV Mean Gradient 19.0 mmHg AV Velocity Time Integral 40.5 cm Mitral E Point Velocity 129.3 cm/s LV E' Lateral Velocity 11.0 cm/s Mitral E to LV E' Lateral Ratio 11.7 LV E' Septal Velocity 7.1 cm/s Mitral E to LV E' Septal Ratio 18.2 TR Peak Velocity 459.0 cm/s TR Peak Gradient 84.3 mmHg Right Atrial Pressure 10.0 mmHg Pulmonary Artery Systolic Pressu 94.3 mmHg Right Ventricular Systolic Press 94.3 mmHg FINDINGS LEFT VENTRICLE Mild concentric left ventricular hypertrophy. Normal left ventricular size. The left ventricular systolic function is normal with an estimated ejection fraction in the range of 60-65%. Lucho Oliveros MD (Electronically Signed) Final Date:08 May 2017 16:02
[2017-05-08] MEDS: LEVOFLOXACIN/DEXTROSE 250 MG/50 ML IV SCH (17:38)
--- NOTE | 2017-05-08 18:40 | RADRPT ---
EXAM DATE/TIME: 05/08/2017 15:33 [facility] COMPARISON: CT ABDOMEN & PELVIS W/O CONTRAST, May 02, 2017, 19:58. ABDOMEN KUB ONLY, May 04, 2017, 6:03 . INDICATIONS : Abdominal distention. Possible ileus. MEDICAL HISTORY : Cardiovascular disease. Hypertension. Diabetes mellitus type 2. SURGICAL HISTORY : None. ENCOUNTER: Subsequent ACUITY: 3 weeks PAIN SCORE: Non-responsive. LOCATION: abdomen. FINDINGS: 3 supine frontal views of the abdomen demonstrates a distended and mildly dilated ascending and trans verse colon. Otherwise, there is a relative paucity of bowel gas. The degree of distention is not sig nificantly changed from the prior study but transverse colon distally is mildly more dilated. The rem aining visualized structures demonstrates no acute finding. CONCLUSION: Persistent mild dilatation of the ascending colon and transverse colon. Findings favor ileus. There a re no findings to indicate small bowel obstruction. When correlating with prior CT it is felt unlikel y to represent any colonic obstruction. Duncan Avery MD on May 08, 2017 at 18:35 Board Certified Radiologist. This report was verified electronically.
[2017-05-08] MEDS: RESP: ALBUTEROL 2.5 MG/3 ML NEB (PRN) NEB (20:07)
[2017-05-08] MEDS: ATORVASTATIN 20 MG TAB PO SCH (20:29)
[2017-05-08] MEDS: ACETAMINOPHEN 325 MG TAB PO PRN (21:18)
[2017-05-09] VITALS (19 sets, daily range): BP systolic 147–172; BP diastolic 68–90; PULSE 106–108; RESP 11–27; TEMP 97.8–98.7; O2SAT 100
[2017-05-09] MEDS: CHLORHEXIDINE GLUCONATE 2 % 1 PACK (2 CLOTHS) TOP SCH (01:16)
[2017-05-09] MEDS: RESP: ALBUTEROL 2.5 MG/IPRATROPIUM 0.5 MG NEB (SCH) NEB ×4 (03:37→19:44)
[2017-05-09] MEDS: SODIUM CHLOR 0.9% 1000 ML INJ 1,000 ML IV SCH (03:44)
[2017-05-09] MEDS: hydrALAZINE HCL 20 MG/ML VIAL IV PUSH PRN ×2 (03:51→23:07)
[2017-05-09] MEDS: LEVOTHYROXINE SODIUM 125 MCG TAB PO SCH (05:38)
[2017-05-09] MEDS: HEPARIN SODIUM - SQ 10,000 UNITS/ML VIAL SQ SCH ×3 (05:39→21:27)
[2017-05-09] MEDS: METOCLOPRAMIDE HCL 10 MG/2 ML VIAL IV PUSH SCH ×3 (05:39→21:26)
[2017-05-09] MEDS: INSULIN ASPART SUPPLEMENTAL SCALE SQ SCH ×4 (05:56→17:33)
[2017-05-09] MEDS: ARTIFICIAL TEARS OPTH SOLN 15 ML BTL EACH EYE SCH ×3 (05:56→22:00)
[2017-05-09] MEDS: ACETAMINOPHEN 325 MG TAB PO PRN (06:50)
--- NOTE | 2017-05-09 07:22 | HHI.CCPN ---
Subjective Remarks/Hospital Course The patient is an 82 year old female past with past medical history significant for hypertension, atrial fibrillation, diabetes mellitus, obesity, hypothyroidism, hyperlipidemia, diabetic neuropathy, who was seen in ED 3 days ago bronchospasm. She has COPD/Asthma and restrictive lung disease related to her obesity. Patient was treated for reactive airway disease, given breathing treatments and was discharged on as needed inhalers. Patient was brought in today by her as she was having shortness of breath and on the way to the ED when she slumped over in the car. In the emergency department she showed agonal breathing, she was intubated for airway protection emergently. Patient was given Solu-Medrol and breathing treatments and was placed on the mechanical ventilation. Chest x-ray showed bilateral infiltrates concerning for pneumonia. CT of the head was negative. I evaluated the patient in the ICU. She is on minimal sedation and mild attempts to wake up and intermittently tries to follows commands. She still on high oxygen requirement FiO2 is 60% with a PEEP of 5. I have increased the PEEP to 10. I have started the patient on scheduled IV Solu-Medrol, DuoNeb breathing treatments, cefepime and azithromycin for probable pneumonia. 04/20 Remains intubated, off sedation following commands. Currently FiO2 had been weaned to 40%. Urine output 950 ml since admission. Start SBT, Bumex 1 mg IV x1. 04/21: Tolerating CPAP better today, Appears calm following commands. UO adequate, though creat increasing. Cultures remain negative 04/22: Extubated yesterday required BiPAP overnight. Currently on nasal cannula slightly tachypneic but able to talk in full sentences maintaining oxygen saturation 04/23: Breathing more comfortably today on nasal cannula. Daughter At the bedside. Urine output adequate, creatinine has slightly improved 05/05: Rapid response team was called due to patient's altered mental status and hypoxemia. She was immediately transferred to ICU with a blood gas showing severe hypercarbic acidosis and was immediately intubated. She also became slightly hypotensive requiring a central line placement and initiation of vasopressor therapy Subjective 05/06: Awake and alert but not following commands. Nods head but inappropriately to questions. CAM ICU positive. Sedation is currently been held. Off norepinephrine. Currently nothing by mouth. 05/07: Tmax 100.4 Patient awake following commands. Sedation off a greater than 24-hour. Discussion of CODE STATUS with patient and daughter, patient states she requests to be full code explanation provided in detail. CODE STATUS changed to full code. Sputum cultures pending. Empiric antibiotics initiated Levaquin and cefepime. Patient continues on CPAP trials. The patient lasted 13 hours yesterday on CPAP. Plan for Vas-Cath placement by interventional radiology scheduled for 05/10. 05/08: Patient continues on CPAP trials, alert and responsive, denies pain. Plan for obtaining SBT parameters today a successful will extubate. Sputum culture revealed initial preliminary results of budding yeasts, micafungin added to medication regimen. Patient's scheduled by IR placement of Vas-Cath in a.m.. Patient continues on Reglan and nothing by mouth status per GI, large amounts of diarrhea/loose stools, plan for KUB this afternoon. 05/09: Tmax 99.0. The patient tolerated CPAP trials continuation overnight, approximately 24 hours. SBT performed last evening,WNL. Patient remains awake , alert and interactive. The patient is scheduled for permacath placement via IR this a.m. to be followed by dialysis. Plan for SBT trial postdialysis with a trial of extubation. Throughout the night the patient became tachycardic, with systolic blood pressure greater than 160s. Metoprolol resumed. Patient complained of throat pain early this a.m. relieved with Tylenol. GI following, obtained repeat KUB yesterday we'll await recommendations. Plan to discontinue IV fluids and initiate PPN. Objective Vital Signs Date Time Temp Pulse Resp B/P (MAP) Pulse Ox O2 Delivery O2 Flow Rate FiO2 05/09/17 06:00 108 05/09/17 04:10 100 40 05/09/17 04:00 98.5 12 172/75 (107) 05/08/17 19:00 Mechanical Ventilator 6.00 Intake and Output 05/09/17 05/09/17 05/10/17 08:00 16:00 00:00 Intake Total 636 ml Output Total 275 ml Balance 361 ml Result Diagram: 05/08/17 0505 05/08/17 0505 Other Results Microbiology Date/Time Source Procedure Growth Status 05/06/17 09:30 Stool Stool Stool Occult Blood (LAYLA) - Final HEMOCCULT POSITIVE Complete Imaging Last Impressions Chest X-Ray 05/08/17 0600 Signed Impressions: Service Date/Time: Monday, May 08, 2017 03:23 - CONCLUSION: 1. Cardiomegaly and findings of vascular congestion without overt failure. There has been no significant change when compared to the prior exam. Brian Mcmanus MD Abdomen X-Ray 05/08/17 0000 Signed Impressions: Service Date/Time: Monday, May 08, 2017 15:33 - CONCLUSION: Persistent mild dilatation of the ascending colon and transverse colon. Findings favor ileus. There are no findings to indicate small bowel obstruction. When correlating with prior CT it is felt unlikely to represent any colonic obstruction. Duncan Avery MD Enema w/Water Soluble 05/02/17 0000 Signed Impressions: Service Date/Time: Tuesday, May 02, 2017 08:02 - CONCLUSION: 1. Limited suboptimal exam. The cecum and right colon could not be opacified despite repeated attempts. 2. Residual stool and mild to moderate diverticulosis. Guevara Crowell MD Abdomen/Pelvis CT 05/02/17 Signed Impressions: Service Date/Time: Tuesday, May 02, 2017 19:58 - CONCLUSION: 1. Nonspecific bowel gas pattern remains with contrast noted in the colon from the recent Gastrografin enema. The cecum remains distended. A rectal catheter is present. 2. No free air or fluid. 3. Small pleural effusions with mild consolidation in the lung bases. 4. Stable small adrenal masses likely representing adenomas. 5. Small nonobstructing left renal calculus. Guevara Crowell MD Catheter Placement X-Ray 05/01/17 Signed Impressions: Service Date/Time: Monday, May 01, 2017 11:45 - CONCLUSION: Uncomplicated line placement as above. Brian Mcmanus MD Renal Ultrasound 04/20/17 Signed Impressions: Service Date/Time: April 15:07 - CONCLUSION: 1. There is no hydronephrosis. 2. Stable 8mm nonobstructing left renal stone. Duncan Avery MD Head CT 04/19/17 0702 Signed Impressions: Service Date/Time: Wednesday, April 19, 2017 07:29 - CONCLUSION: 1. Cerebral white matter hypodensity characteristic of chronic microvascular ischemic disease. 2. No evidence of acute infarct, hemorrhage, mass or edema. Renato Coughlin MD Last Impressions Chest X-Ray 05/06/17 0000 Signed Impressions: Service Date/Time: Saturday, May 06, 2017 03:22 - CONCLUSION: Left IJ central venous catheter courses superiorly in the region of the SVC with the tip in the region of distal right internal jugular vein or right brachiocephalic vein. This could be retracted 5 cm. No evidence of pneumothorax. Hussain Green MD Abdomen X-Ray 05/04/17 0600 Signed Impressions: Service Date/Time: May 06:03 - CONCLUSION: Contrast through to the rectum. Basically stable dilatation of the proximal colon Duncan Delgado MD Enema w/Water Soluble 05/02/17 0000 Signed Impressions: Service Date/Time: Tuesday, May 02, 2017 08:02 - CONCLUSION: 1. Limited suboptimal exam. The cecum and right colon could not be opacified despite repeated attempts. 2. Residual stool and mild to moderate diverticulosis. Guevara Crowell MD Abdomen/Pelvis CT 05/02/17 0000 Signed Impressions: Service Date/Time: Tuesday, May 02, 2017 19:58 - CONCLUSION: 1. Nonspecific bowel gas pattern remains with contrast noted in the colon from the recent Gastrografin enema. The cecum remains distended. A rectal catheter is present. 2. No free air or fluid. 3. Small pleural effusions with mild consolidation in the lung bases. 4. Stable small adrenal masses likely representing adenomas. 5. Small nonobstructing left renal calculus. Guevara Crowell MD Catheter Placement X-Ray 05/01/17 0000 Signed Impressions: Service Date/Time: Monday, May 01, 2017 11:45 - CONCLUSION: Uncomplicated line placement as above. Brian Mcmanus MD Renal Ultrasound 04/20/17 0000 Signed Impressions: Service Date/Time: April 15:07 - CONCLUSION: 1. There is no hydronephrosis. 2. Stable 8mm nonobstructing left renal stone. Duncan Avery MD Head CT 04/19/17 0702 Signed Impressions: Service Date/Time: Wednesday, April 19, 2017 07:29 - CONCLUSION: 1. Cerebral white matter hypodensity characteristic of chronic microvascular ischemic disease. 2. No evidence of acute infarct, hemorrhage, mass or edema. Renato Coughlin MD Objective Remarks BP 166/71 Pulse 110 O2 saturation 100% on CPAP 15/5 FIO2 .40 GEN: 82-year-old female, currently orotracheally intubated responsive and interactive, complaints of throat pain this a.m. Head - normocephalic atraumatic. ENT: Oropharynx without erythema access. Orotracheally intubated. Dressing clean dry and intact previous site of left central line Neck: Right IJ catheter C/D/I and intact without erythema or drainage. Cardiovascular: Sinus tachycardia S1, S2. No S4. Without murmur. Telemetry- ST HR110 Lungs: Diminished breath sounds bilaterally. Mild expiratory inspiratory wheezing Abdomen: Abdomen morbidly obese, soft nontender. No guarding, rebound, or rigidity. Normoactive bowel sounds Extremities: 1+ edema/anasarca Neurologic: RASS 0. Pupils are symmetrical 3 mm and reactive to light bilaterally. Patient following commands communicating by nodding of head appropriately. Moves all 4 extremity spontaneously. Procedures 05/09 - IR for permacath Date of Insertion: May 05, 2017 Date of Removal: May 07, 2017 Line: Central Venous Catheter Side: Left Location: Jugular A/P Assessment and Plan NEURO/PSYCH: Acute metabolic encephalopathy-resolved - Propofol for for vent synchrony while intubated, and canal discontinued. Patient currently has propofol on hold continuous CPAP trials denies discomfort - Goal of RASS -2 - Daily sedation vacation - CT of the head negative for acute findings, holding gabapentin - Morphine when necessary pain (held) - Tylenol 650 mg every 6 hours when necessary for pain RESP: Acute hypoxemic respiratory failure Pneumonia COPD with exacerbation Restrictive lung disease - Extubated 04/21. Reintubated 05/05 - PRVC 18/500/// Ventilator bundle -DuoNebs Continues on CPAP trials-15/5 FIO2 .40%. Currently since 05/07 0830 05/07 SBT NIF -30/ FVC 1.04 RSBI 30 with + cuff leak, chest x-ray 05/07 show pulmonary vascular congestion but no overt failure, plan for repeat SBT post dialysis with a trial of extubation 05/07 sputum culture- budding yeast, Micafungin (day 2) CV: Chronic A. fib Transient hypotension -Goal to maintain MAP greater than equal to 65 - Rate controlled atrial fibrillation- HR > 100, SBP 160's. Metoprolol reinitiated 50 mg twice a day. Lisinopril patient's home med has been discontinued in the setting of CKD. Cardizem currently on hold -Holding Apixaban currently. Continue subcutaneous heparin - Anticoagulation hold for anemia.. Resume when clinically indicated -Currently holding diltiazem 360 mill grams daily, metoprolol 100 mg twice a day. 05/07- digoxin level 1.3 . Hold for now, janell in the setting of ARF. Last documented level 1.8 Currently normal saline at 42 cc an hour - On atorvastatin 20 mg daily for dyslipidemia. GI: Colonic ileus Gastrografin enema 05/02. Proximal colonic dilatation. Patient is having bowel movements. No abdominal pain Famotidine for GI prophylaxis On metoclopramide 5 mg IV every 8 hours for colonic ileus per GI. Copious stools last 2-3 days, no stool output last 12 hours 05/08 repeat KUB-mildly dilated ascending and transverse colon. Distention unchanged, but transverse colon distally more dilated 05/09 Begin PPN : Acute on chronic kidney disease Secondary hyperparathyroidism - Nephrology -Dr. Grewal - Monitor renal function closely. Nelson catheter. UOP last 24 hours- 625cc - Hemodialysis per nephrology. Currently on Monday/ and Monday - IR for permacath 05/10, obtained postdialysis labs - Continue Calciferol 0.25 mcg daily for secondary hyperparathyroidism ID: Severe sepsis resolved Pneumonia - Blood sputum and urine culture, all negative to date - Empiric cefepime and azithromycin for 7-10 days course completed - Sputum culture 05/07 budding yeast-micafungin day 2 HEME: Leukocytosis Normocytic anemia - Monitor CBC, CMP, INR -Holding apixaban ENDO: Hypothyroidism Type 2 diabetes - Continue levothyroxine at 125 g daily, sliding-scale insulin - SSI with every 6 hours Accu-Cheks on novolog to maintain euglycemia. Holding insulin detemir 10 units twice a day while nothing by mouth MSK: OA/OP Continue cholecalciferol 400 units twice a day PT evaluate and treat PT requested functional maintenance daily PROPH: - Bilateral lower extremity SCDs, heparin subcutaneous LINES: -Left IJ central line placed 05/05-05/07. right IJ-brachiocephalic Critical Care: The total critical care time was 34 minutes. Time to perform other separately billable procedures was not included in the critical care time. 05/07: Discussed with Vitaliy Sales and daughter. Full CODE STATUS. All family members acknowledge understanding and present in room during discussion. CODE STATUS will be changed. Palliative care consulted as well for goals of care. 05/08: Palliative of care meeting this afternoon, patient instituted daughter as primary POA. Physician Flavia Hernandez MD May 09, 2017 07:22
[2017-05-09] MEDS: METOPROLOL TARTRATE 50 MG TAB PO SCH ×2 (08:33→21:25)
[2017-05-09] MEDS: CEFEPIME 1000 MG/NS 100 ML IV SCH ×2 (08:33)
[2017-05-09] MEDS: LANSOPRAZOLE SOLUTAB 30 MG TAB NG SCH (08:33)
[2017-05-09] MEDS: LACTOBACILLUS ACIDOPHILUS TAB PO SCH ×3 (08:34→17:34)
[2017-05-09] MEDS: SODIUM CHLORIDE 0.9% FLUSH 10 ML FLUSH IV FLUSH SCH ×2 (08:34→21:25)
[2017-05-09] MEDS: CHLORHEXIDINE 0.12% (ORAL KIT) 15 ML CUP MT SCH ×2 (08:34→20:00)
[2017-05-09] MEDS: CALCITRIOL 0.25 MCG CAP PO SCH (08:34)
[2017-05-09] MEDS: MULTIVITAMINS/MINERALS THERAPEUTIC TAB PO SCH ×2 (08:35→21:25)
[2017-05-09] MEDS: CHOLECALCIFEROL (VIT D3) 400 UNIT TAB PO SCH ×2 (08:35→21:25)
[2017-05-09] MEDS: INSULIN DETEMIR 100 UNITS/ML VIAL SQ SCH ×2 (09:00→21:26)
--- NOTE | 2017-05-09 11:47 | HHI.NPPN ---
Subjective History of Present Illness Patient is a 82-year-old with sepsis, COPD, intubation, diabetes, acute renal failure and chronic kidney disease. Additional Remarks Patient remain on the vent, awake, not in distress. Objective Data Data 05/09/17 05/10/17 19:00 07:00 Intake Total 100 ml Balance 100 ml IV Total 100 ml Vital Signs Date Time Temp Pulse Resp B/P (MAP) Pulse Ox O2 Delivery O2 Flow Rate FiO2 05/09/17 10:37 100 40 05/09/17 10:00 108 05/09/17 08:48 100 40 05/09/17 08:00 98.7 108 22 170/76 (107) 100 05/09/17 08:00 108 05/09/17 08:00 40 05/09/17 07:50 20 05/09/17 07:00 100 Mechanical Ventilator 6.00 40 05/09/17 06:00 108 05/09/17 04:10 100 40 05/09/17 04:00 40 05/09/17 04:00 98.5 108 12 172/75 (107) 100 05/09/17 04:00 108 05/09/17 02:00 108 05/09/17 01:34 100 40 05/09/17 00:00 40 05/09/17 00:00 98.7 106 11 169/72 (104) 100 05/09/17 00:00 106 05/08/17 22:00 106 05/08/17 20:07 100 40 05/08/17 20:00 99.0 106 26 189/82 (117) 100 05/08/17 20:00 106 05/08/17 20:00 40 05/08/17 19:00 100 Mechanical Ventilator 6.00 40 05/08/17 18:00 106 05/08/17 17:01 100 40 05/08/17 16:00 98.8 108 17 156/66 (96) 100 05/08/17 16:00 40 05/08/17 16:00 107 05/08/17 14:00 106 05/08/17 12:27 100 40 05/08/17 12:00 40 05/08/17 12:00 98.7 107 16 155/67 (96) 100 05/08/17 12:00 107 -: 05/08/17 0505 05/08/17 0505 Physical Exam General Appearance: No Acute Distress, Comfortable, Obese Neck Neck Exam: Neck Supple Pulmonary Resp Exam: Decreased Bases Cardiology CV Exam: Arrhythmia Gastrointestinal/Abdomen GI Exam: Bowel Sounds Hypoactive Extremeties Extremities Exam: Trace Edema Neurologic Neuro Exam: Alert, Awake Psychiatric Psych Exam: Appropriate Responses Assessment/Plan Problem List: (1) Acute on chronic renal insufficiency ICD Codes: N28.9 - Disorder of kidney and ureter, unspecified; N18.9 - Chronic kidney disease, unspecified Status: Acute Plan: Patient is in acute renal failure and had chronic kidney disease ESRD with no recovery no recovery need to hold Eliquis and give heparin place PermCath next Monday may need AVF as well GI and colorectal surgery following the patient. HD this afternoon awake on Vent on CPAP d/w Dr. Angelo plan to extubate post dialysis HD T,T,S schedule (2) Hypertension ICD Codes: I10 - Hypertension Status: Acute Plan: Blood pressure was low (3) Diabetes ICD Codes: E11.9 - Type 2 diabetes mellitus without complications Status: Acute Plan: Continue to monitor (4) COPD with acute exacerbation ICD Codes: J44.1 - Chronic obstructive pulmonary disease with (acute) exacerbation Plan: extubated Problem Qualifiers (1) Diabetes: Tonja Grewal MD May 09, 2017 11:47
--- NOTE | 2017-05-09 13:38 | HHI.HCPN ---
Reason for visit a. To assist with evaluation and management of symptoms including: Debility , pain, dyspnea b. To assist medical decision maker(s) with: better understanding of current medical conditions; weighing benefits/burdens of medical treatment options; making medical treatment decisions. . Subjective/Interval History Ms. Sales is an 82 year old female currently hospitalized with sepsis, COPD, diabetes, acute on chronic renal failure and respiratory failure status post reintubation on 05/05/2017. Patient is alert and interactive off sedation. She remains intubated today; follow-up chest x-ray showing pulmonary vascular congestion. Plan for SBT post dialysis with trial of extubation later today. Likely PermCath placement tomorrow 05/10/2017; patient may need aVF as well. Afebrile. Sputum culture 05/07/17 with budding yeast; patient on day #2 micafungin. Also on cefepime and levofloxacin. Follow-up KUB on 05/08/2017 showed persistent mild dilatation of the ascending colon with trach and transverse colon, findings favor ileus. No indication small bowel obstruction. When correlating with prior CT it is felt unlikely to represent any colonic obstruction. Gastroenterology following. Per case management notes, patient has been accepted at [facility] was contacted regarding dialysis. . Family/friend interactions Spoke with patient family vis telephone. Update provided on patient's clinical condition. Questions answered to the best of my ability. Family verbalizes comfort in current medical treatment goals/plan. . Advance Directives Advance Directive Specifics Date completed: 05/08/2017 . Health Care Surrogate(s): Health care surrogate form completed 05/08/2017 designating the patient's daughter (Shilpa) as the healthcare surrogate decision maker. The patient's son (Jason) is the alternate health care surrogate decision maker. Documented care wishes: Healthcare surrogate form was completed 05/08/2017. No other documented care wishes have been completed. Plan to discuss written advanced directives/living will after the patient has been extubated in the upcoming days. . Objective Vital Signs Date Time Temp Pulse Resp B/P (MAP) Pulse Ox O2 Delivery O2 Flow Rate FiO2 05/09/17 13:00 100 40 05/09/17 12:00 106 05/09/17 12:00 40 05/09/17 12:00 98.7 106 27 166/90 (115) 100 05/09/17 10:37 100 40 05/09/17 10:00 108 05/09/17 08:48 100 40 05/09/17 08:00 98.7 108 22 170/76 (107) 100 05/09/17 08:00 108 05/09/17 08:00 40 05/09/17 07:50 20 05/09/17 07:00 100 Mechanical Ventilator 6.00 40 05/09/17 06:00 108 05/09/17 04:10 100 40 05/09/17 04:00 40 05/09/17 04:00 98.5 108 12 172/75 (107) 100 05/09/17 04:00 108 05/09/17 02:00 108 05/09/17 01:34 100 40 05/09/17 00:00 40 05/09/17 00:00 98.7 106 11 169/72 (104) 100 05/09/17 00:00 106 05/08/17 22:00 106 05/08/17 20:07 100 40 05/08/17 20:00 99.0 106 26 189/82 (117) 100 05/08/17 20:00 106 05/08/17 20:00 40 05/08/17 19:00 100 Mechanical Ventilator 6.00 40 05/08/17 18:00 106 05/08/17 17:01 100 40 05/08/17 16:00 98.8 108 17 156/66 (96) 100 05/08/17 16:00 40 05/08/17 16:00 107 05/08/17 14:00 106 Intake & Output 05/09/17 05/09/17 07:00 19:00 Intake Total 636 ml 100 ml Output Total 275 ml Balance 361 ml 100 ml IV Total 516 ml 100 ml Tube Irrigant 120 ml Output Urine Total 275 ml Stool Total 0 ml . Physical Exam CONSTITUTIONAL/GENERAL: This is an elderly female who remains orotracheally intubated, alert and interactive. TUBES/LINES/DRAINS: OGT, ETT, Nelson catheter, digni-shield, soft restraints, Vas -Cath, PIV 2 SKIN: No jaundice, rashes, or lesions. Ecchymoses on upper extremities. No wounds seen anteriorly. Skin temperature appropriate. Not diaphoretic. HEAD: Atraumatic. Normocephalic. EYES: Pupils equal and round and reactive. Extraocular motions intact. No scleral icterus. No injection or drainage. Fundi not examined. ENT: Hearing grossly normal. Nose without bleeding or purulent drainage. Dressing clean dry and intact previous site of left central line NECK: Trachea midline. CARDIOVASCULAR: Sinus tachycardic without murmur. No Gallops, or rubs. No JVD. Peripheral pulses symmetric. RESPIRATORY/CHEST: Remains intubated, tolerating CPAP. Breath sounds diminished bilaterally. + Wheezing GASTROINTESTINAL: Abdomen soft, non-tender, nondistended. No hepato-splenomegaly , or palpable masses. No guarding. Bowel sounds present. GENITOURINARY: Without palpable bladder distension. Nelson catheter in place. MUSCULOSKELETAL: Extremities without clubbing or cyanosis. 1+ edema/anasarca LYMPHATICS: No palpable cervical or supraclavicular adenopathy. NEUROLOGICAL: Awake and interactive of sedation. Pupils are symmetrical 3 mm and reactive to light bilaterally. Patient following commands; communicating with pen and paper and by nodding/shaking of head appropriately to yes/no questions. PSYCHIATRIC: No obvious anxiety/depression. no apparent hallucinations or other psychotic thought process. . Diagnostic Tests Laboratory Laboratory Tests Test 05/06/17 13:20 05/06/17 23:22 05/07/17 04:24 05/07/17 13:10 Hemoglobin 5.8 GM/DL (11.6-15.3) 8.9 GM/DL (11.6-15.3) 8.7 GM/DL (11.6-15.3) 9.0 GM/DL (11.6-15.3) Hematocrit 18.6 % (35.0-46.0) 26.7 % (35.0-46.0) 26.0 % (35.0-46.0) 28.0 % (35.0-46.0) White Blood Count 16.1 TH/MM3 (4.0-11.0) Red Blood Count 2.90 MIL/MM3 (4.00-5.30) Mean Corpuscular Volume 89.5 FL (80.0-100.0) Mean Corpuscular Hemoglobin 29.9 PG (27.0-34.0) Mean Corpuscular Hemoglobin Concent 33.4 % (32.0-36.0) Red Cell Distribution Width 16.7 % (11.6-17.2) Platelet Count 130 TH/MM3 (150-450) Mean Platelet Volume 8.1 FL (7.0-11.0) Neutrophils (%) (Auto) 86.7 % (16.0-70.0) Lymphocytes (%) (Auto) 5.3 % (9.0-44.0) Monocytes (%) (Auto) 7.1 % (0.0-8.0) Eosinophils (%) (Auto) 0.5 % (0.0-4.0) Basophils (%) (Auto) 0.4 % (0.0-2.0) Neutrophils # (Auto) 13.9 TH/MM3 (1.8-7.7) Lymphocytes # (Auto) 0.9 TH/MM3 (1.0-4.8) Monocytes # (Auto) 1.1 TH/MM3 (0-0.9) Eosinophils # (Auto) 0.1 TH/MM3 (0-0.4) Basophils # (Auto) 0.1 TH/MM3 (0-0.2) CBC Comment DIFF FINAL Differential Comment Blood Urea Nitrogen 33 MG/DL (7-18) Creatinine 3.80 MG/DL (0.50-1.00) Random Glucose 128 MG/DL (74-106) Albumin 2.2 GM/DL (3.4-5.0) Calcium Level 7.7 MG/DL (8.5-10.1) Phosphorus Level 0.6 MG/DL (2.5-4.9) 2.0 MG/DL (2.5-4.9) Sodium Level 142 MEQ/L (136-145) Potassium Level 3.0 MEQ/L (3.5-5.1) 3.7 MEQ/L (3.5-5.1) Chloride Level 103 MEQ/L (98-107) Carbon Dioxide Level 26.4 MEQ/L (21.0-32.0) Anion Gap 13 MEQ/L (5-15) Estimat Glomerular Filtration Rate 14 ML/MIN (>89) Digoxin Level 1.3 NG/ML (0.8-2.0) Test 05/08/17 05:05 White Blood Count 14.7 TH/MM3 (4.0-11.0) Red Blood Count 3.19 MIL/MM3 (4.00-5.30) Hemoglobin 9.4 GM/DL (11.6-15.3) Hematocrit 28.8 % (35.0-46.0) Mean Corpuscular Volume 90.3 FL (80.0-100.0) Mean Corpuscular Hemoglobin 29.6 PG (27.0-34.0) Mean Corpuscular Hemoglobin Concent 32.7 % (32.0-36.0) Red Cell Distribution Width 17.7 % (11.6-17.2) Platelet Count 119 TH/MM3 (150-450) Mean Platelet Volume 8.2 FL (7.0-11.0) Neutrophils (%) (Auto) 92.9 % (16.0-70.0) Lymphocytes (%) (Auto) 1.4 % (9.0-44.0) Monocytes (%) (Auto) 5.5 % (0.0-8.0) Eosinophils (%) (Auto) 0.2 % (0.0-4.0) Basophils (%) (Auto) 0.0 % (0.0-2.0) Neutrophils # (Auto) 13.7 TH/MM3 (1.8-7.7) Lymphocytes # (Auto) 0.2 TH/MM3 (1.0-4.8) Monocytes # (Auto) 0.8 TH/MM3 (0-0.9) Eosinophils # (Auto) 0.0 TH/MM3 (0-0.4) Basophils # (Auto) 0.0 TH/MM3 (0-0.2) CBC Comment DIFF FINAL Differential Comment Blood Urea Nitrogen 39 MG/DL (7-18) Creatinine 4.56 MG/DL (0.50-1.00) Random Glucose 162 MG/DL (74-106) Calcium Level 8.0 MG/DL (8.5-10.1) Phosphorus Level 1.9 MG/DL (2.5-4.9) Magnesium Level 1.9 MG/DL (1.5-2.5) Sodium Level 140 MEQ/L (136-145) Potassium Level 3.6 MEQ/L (3.5-5.1) Chloride Level 103 MEQ/L (98-107) Carbon Dioxide Level 22.5 MEQ/L (21.0-32.0) Anion Gap 15 MEQ/L (5-15) Estimat Glomerular Filtration Rate 11 ML/MIN (>89) Procalcitonin 0.16 ng/mL (0.00-0.08) . Result Diagram: 05/08/17 0505 05/08/17 0505 Microbiology Microbiology Date/Time Source Procedure Growth Status 05/07/17 16:24 Sputum Endotracheal Gram Stain - Final Complete 05/07/17 16:24 Sputum Endotracheal Sputum Culture - Final MODERATE GROWTH NORMAL RESPIRATORY GORDON Complete . Imaging Last 72 hours Impressions Chest X-Ray 05/08/17 0600 Signed Impressions: Service Date/Time: Monday, May 08, 2017 03:23 - CONCLUSION: 1. Cardiomegaly and findings of vascular congestion without overt failure. There has been no significant change when compared to the prior exam. Brian Mcmanus MD Abdomen X-Ray 05/08/17 0000 Signed Impressions: Service Date/Time: Monday, May 08, 2017 15:33 - CONCLUSION: Persistent mild dilatation of the ascending colon and transverse colon. Findings favor ileus. There are no findings to indicate small bowel obstruction. When correlating with prior CT it is felt unlikely to represent any colonic obstruction. Duncan Avery MD Chest X-Ray 05/07/17 0600 Signed Impressions: Service Date/Time: Sunday, May 07, 2017 05:49 - CONCLUSION: Persistent bilateral pulmonary opacity and small right pleural effusion. Slight increase in right-sided lung opacity. Hussain Green MD . Procedures 04/19/17: Intubation 04/19/17: OGT placement 04/21/17: Extubation 05/01/17: NGT placed. 05/05/17: Reintubation; Left IJ central line placement Assessment and Plan Disease Oriented Problem List: (1) Hypothyroidism (2) Hyperlipidemia (3) Diabetes (4) Pneumonia (5) Atrial fibrillation (6) Acute on chronic kidney failure (7) COPD with acute exacerbation (8) Acute metabolic encephalopathy (9) Peripheral neuropathy (10) History of small bowel obstruction (11) History of thyroid cancer Symptom Scale: (1) Debility (2) Dyspnea (3) Pain Pertinent Non-Medical Issues Psychosocial: Patient is originally from [place]. She had 3 children. Daughter (Shilpa) lives in [place], [place] and son (Jason) lives in [place], [place]. Patient had another daughter who from breast cancer. Patient was remarried after her ; she is currently to her second (Vitaliy). 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 She has 25 grandchildren/great- grandchildren. Spiritual: [employer] messi Legal:Health care surrogate form completed 05/08/2017 designating the patient's daughter (Shilpa) as the healthcare surrogate decision maker. The patient's son (Jason) is the alternate health care surrogate decision maker. Ethical issues impacting care: No known ethical issues impacting care at this time. . Important Contacts Vitaliy Sales, spouse: [phone] or [phone] (cell) Shilpa Gonzales, daughter/[facility]: [phone] Jason Sales, son/alternate [facility]: [phone] . Prognosis Patient is an 82-year-old female who has been admitted 3 times in 2017 for management of respiratory failure/pneumonia. She has required intubation/ mechanical ventilation x 2 since her admission on 04/19/2017. Given patient's complex medical history with recurrent hospitalizations, advanced age and recent decline in functional status, she is high risk for ongoing setbacks and complications. . Code Status: Full Code Plan * FULL CODE * Health care surrogate form completed 05/08/2017 designating the patient's daughter (Shilpa) as the healthcare surrogate decision maker. The patient's son (Jason) is the alternate health care surrogate decision maker. * Discussed patient with Dr. Angelo. * Dr. Angelo discussed CODE STATUS with the patient and family on 05/07/2017; patient requesting to be changed to FULL CODE at that time. * Symptom management-dyspnea: Patient remains intubated, currently tolerating CPAP. She has been intubated 2 times since being admitted on 07/20/16. Sputum culture 05/07/2017 with budding yeast-on micafungin, cefepime and Levaquin. Follow-up chest x-ray showing pulmonary vascular congestion. Plan for SBT post dialysis with trial of extubation later today. * Symptom management-pain: Patient showing no signs or symptoms of nonverbal pain on exam; she denies pain when asked. Possible causes of pain include immobility, bedbound status, invasiveness lines, obesity, intubation, infection. Patient is of sedation; no PRN pain medications are ordered at this time. Will continue to monitor and make recommendations as appropriate. * Symptom management-disability: Patient lives at home with her ; she is independent for all ADLs. Her activity at baseline is limited by her weight. Patient is independent in gait with a cane; and uses a walker for more extensive activity. Patient requires home oxygen and CPAP at night. Shilpa ( daughter) states she saw the patient when she was hospitalized in 08/2016 and again 6 months later 03/2017. Per Shilpa, her mother has declined in the past 6 months. She states her mother has becomes more withdrawn and lethargic. Patient spends most of her time in bed and becomes fatigued after being OOB for short periods of time (<30minutes). Goal is to discharge patient to SNF for rehabilitation before returning home. * Patient has been admitted 3 times in 2017 for management of respiratory failure/pneumonia. She has required intubation/mechanical ventilation x 2 since her admission on 04/19/2017. Given patient's complex medical history with recurrent hospitalizations, advanced age and recent decline in functional status , she is high risk for ongoing setbacks and complications. Per case management notes, patient has been accepted at [facility] was contacted regarding dialysis. * Palliative care will continue to follow patient throughout this hospitalization to establish trust, assist with symptom management and clarification of medical treatment goals. . Attestation To help prompt me to consider important information that might be impacting today's encounter and assessment, information from prior notes written by myself or my colleagues may have been "brought forward" into today's note. My signature on this note, however, is an attestation that I personally performed the exam, history, and/or decision-making noted today, and, unless otherwise indicated, the interactions with patient, family, and staff as well as the review of records all occurred today. I also attest that the listed assessment and stated plan reflect my best clinical judgment today based on the combination of historical information, prior notes, and today's exam/ interactions. When time spent is documented, it refers only to time spent today by the signer, or if indicated, combined time spent today by collaborating physician/nurse practitioner. . Yulissa Barraza May 09, 2017 13:37
[2017-05-09] MEDS: MICAFUNGIN INJ 100 MG in SODIUM CHLORIDE 0.9% INJ 100 ML IV SCH (15:18)
[2017-05-09] MEDS: METOPROLOL TARTRATE 5 MG/5 ML VIAL IV PUSH PRN (15:19)
[2017-05-09] MEDS: FAT EMULSION 20% INJ 250 ML (@10 mls/hr) IV SCH (20:03)
[2017-05-09] MEDS: CLINIMIX 4.25/5 (Cust.Renal Periph) 1000 mL- </= 42 mls/hr IV SCH ×8 (20:04)
[2017-05-09] MEDS: ATORVASTATIN 20 MG TAB PO SCH (21:25)
[2017-05-10] VITALS (16 sets, daily range): BP systolic 145–173; BP diastolic 59–81; PULSE 85–108; RESP 18–28; TEMP 97.8–98.7; O2SAT 100
[2017-05-10] MEDS: RESP: ALBUTEROL 2.5 MG/IPRATROPIUM 0.5 MG NEB (SCH) NEB ×2 (03:53→08:07)
[2017-05-10] MEDS: HEPARIN SODIUM - SQ 10,000 UNITS/ML VIAL SQ SCH ×3 (05:13→21:40)
[2017-05-10] MEDS: INSULIN ASPART SUPPLEMENTAL SCALE SQ SCH ×4 (05:26→17:53)
[2017-05-10 05:46] LABS: INTERNATIONAL NORMALIZED RATIO 1.1 RATIO; PROTHROMBIN TIME - PATIENT 11.8 SEC (9.8-11.6)
[2017-05-10] MEDS: LEVOTHYROXINE SODIUM 125 MCG TAB PO SCH (05:50)
[2017-05-10] MEDS: METOCLOPRAMIDE HCL 10 MG/2 ML VIAL IV PUSH SCH (05:50)
[2017-05-10 06:00] LABS: ANION GAP 12 MEQ/L (5-15); AST (GOT) 36 U/L (15-37); BICARBONATE 24.9 MEQ/L (21.0-32.0); BLOOD UREA NITROGEN 32 MG/DL (7-18); CHLORIDE 100 MEQ/L (98-107); GLOMERULAR FILTRATION RATE 13 ML/MIN (>89); POTASSIUM 3.7 MEQ/L (3.5-5.1); SODIUM (NA) 137 MEQ/L (136-145)
[2017-05-10 06:03] LABS: ALKALINE PHOSPHATASE 88 U/L (45-117); ALT (GPT) 36 U/L (10-53); TOTAL BILIRUBIN ADULT 0.7 MG/DL (0.2-1.0)
--- NOTE | 2017-05-10 06:12 | RADRPT ---
EXAM DATE/TIME: 05/10/2017 05:05 [facility] COMPARISON: CHEST SINGLE AP, May 08, 2017, 3:23. INDICATIONS : Shortness of breath. MEDICAL HISTORY : Cardiovascular disease. Diabetes mellitus type II. Hypertension. SURGICAL HISTORY : None. ENCOUNTER: Subsequent ACUITY: 3 weeks PAIN SCORE: Non-responsive. LOCATION: Bilateral chest FINDINGS: The cardiac silhouette is enlarged in transverse diameter. There is left lower lobe atelectasis versu s pneumonia. The right lung is free of acute parenchymal opacity. There is improving pulmonary edema. CONCLUSION: 1. Improving pulmonary edema. 2. Improving left basilar atelectasis versus pneumonia Brian Mcmanus MD on May 10, 2017 at 6:10 Board Certified Radiologist. This report was verified electronically.
[2017-05-10 06:26] LABS: BASOPHIL # 0.1 TH/MM3 (0-0.2); BASOPHIL % 0.4 % (0.0-2.0); EOSINOPHIL # 0.1 TH/MM3 (0-0.4); EOSINOPHIL % 0.6 % (0.0-4.0); HEMATOCRIT 32.7 % (35.0-46.0); LYMPH % 5.2 % (9.0-44.0); LYMPHOCYTE # 0.8 TH/MM3 (1.0-4.8); MEAN CELL VOLUME 95.7 FL (80.0-100.0); MEAN CORPUSCULAR HEMOGLOBIN 30.5 PG (27.0-34.0); MEAN CORPUSCULAR HGB CONC 31.9 % (32.0-36.0); MONO % 4.7 % (0.0-8.0); NEUT % 89.1 % (16.0-70.0); PLATELET COUNT 85 TH/MM3 (150-450); RED BLOOD COUNT 3.42 MIL/MM3 (4.00-5.30); RED CELL DISTRIBUTION WIDTH 17.4 % (11.6-17.2); WHITE BLOOD COUNT 14.6 TH/MM3 (4.0-11.0)
[2017-05-10 06:39] LABS: HEMO FLAGS AUTO DIFF
[2017-05-10] MEDS: METOPROLOL TARTRATE 50 MG TAB PO SCH ×2 (07:19→21:39)
[2017-05-10] MEDS: LANSOPRAZOLE SOLUTAB 30 MG TAB NG SCH (07:19)
[2017-05-10] MEDS: CALCITRIOL 0.25 MCG CAP PO SCH (07:19)
[2017-05-10] MEDS: hydrALAZINE HCL 20 MG/ML VIAL IV PUSH PRN ×2 (07:19→16:05)
[2017-05-10] MEDS: LACTOBACILLUS ACIDOPHILUS TAB PO SCH ×3 (07:19→17:37)
[2017-05-10] MEDS: MULTIVITAMINS/MINERALS THERAPEUTIC TAB PO SCH ×2 (07:20→21:39)
[2017-05-10] MEDS: METOPROLOL TARTRATE 5 MG/5 ML VIAL IV PUSH PRN ×2 (07:33→16:18)
--- NOTE | 2017-05-10 07:46 | HHI.CCPN ---
Subjective Remarks/Hospital Course The patient is an 82 year old female past with past medical history significant for hypertension, atrial fibrillation, diabetes mellitus, obesity, hypothyroidism, hyperlipidemia, diabetic neuropathy, who was seen in ED 3 days ago bronchospasm. She has COPD/Asthma and restrictive lung disease related to her obesity. Patient was treated for reactive airway disease, given breathing treatments and was discharged on as needed inhalers. Patient was brought in today by her as she was having shortness of breath and on the way to the ED when she slumped over in the car. In the emergency department she showed agonal breathing, she was intubated for airway protection emergently. Patient was given Solu-Medrol and breathing treatments and was placed on the mechanical ventilation. Chest x-ray showed bilateral infiltrates concerning for pneumonia. CT of the head was negative. I evaluated the patient in the ICU. She is on minimal sedation and mild attempts to wake up and intermittently tries to follows commands. She still on high oxygen requirement FiO2 is 60% with a PEEP of 5. I have increased the PEEP to 10. I have started the patient on scheduled IV Solu-Medrol, DuoNeb breathing treatments, cefepime and azithromycin for probable pneumonia. 04/20 Remains intubated, off sedation following commands. Currently FiO2 had been weaned to 40%. Urine output 950 ml since admission. Start SBT, Bumex 1 mg IV x1. 04/21: Tolerating CPAP better today, Appears calm following commands. UO adequate, though creat increasing. Cultures remain negative 04/22: Extubated yesterday required BiPAP overnight. Currently on nasal cannula slightly tachypneic but able to talk in full sentences maintaining oxygen saturation 04/23: Breathing more comfortably today on nasal cannula. Daughter At the bedside. Urine output adequate, creatinine has slightly improved 05/05: Rapid response team was called due to patient's altered mental status and hypoxemia. She was immediately transferred to ICU with a blood gas showing severe hypercarbic acidosis and was immediately intubated. She also became slightly hypotensive requiring a central line placement and initiation of vasopressor therapy Subjective 05/06: Awake and alert but not following commands. Nods head but inappropriately to questions. CAM ICU positive. Sedation is currently been held. Off norepinephrine. Currently nothing by mouth. 05/07: Tmax 100.4 Patient awake following commands. Sedation off a greater than 24-hour. Discussion of CODE STATUS with patient and daughter, patient states she requests to be full code explanation provided in detail. CODE STATUS changed to full code. Sputum cultures pending. Empiric antibiotics initiated Levaquin and cefepime. Patient continues on CPAP trials. The patient lasted 13 hours yesterday on CPAP. Plan for Vas-Cath placement by interventional radiology scheduled for 05/10. 05/08: Patient continues on CPAP trials, alert and responsive, denies pain. Plan for obtaining SBT parameters today a successful will extubate. Sputum culture revealed initial preliminary results of budding yeasts, micafungin added to medication regimen. Patient's scheduled by IR placement of Vas-Cath in a.m.. Patient continues on Reglan and nothing by mouth status per GI, large amounts of diarrhea/loose stools, plan for KUB this afternoon. 05/09: Tmax 99.0. The patient tolerated CPAP trials continuation overnight, approximately 24 hours. SBT performed last evening,WNL. Patient remains awake , alert and interactive. The patient is scheduled for permacath placement via IR this a.m. to be followed by dialysis. Plan for SBT trial postdialysis with a trial of extubation. Throughout the night the patient became tachycardic, with systolic blood pressure greater than 160s. Metoprolol resumed. Patient complained of throat pain early this a.m. relieved with Tylenol. GI following, obtained repeat KUB yesterday we'll await recommendations. Plan to discontinue IV fluids and initiate PPN. 05/10: Afebrile. Patient underwent IHD with 3 L fluid removal yesterday. Plan for permacath placement today. Patient noted to be continued hypertensive, Cardizem home medication resumed. Patient underwent SBT trials postdialysis yesterday with subsequent failure unable to extubate. Plan for repeat SBT parameters today, with anticipation of possible extubation. Objective Vital Signs Date Time Temp Pulse Resp B/P (MAP) Pulse Ox O2 Delivery O2 Flow Rate FiO2 05/10/17 06:00 106 05/10/17 04:10 100 40 05/10/17 04:00 97.8 28 168/79 (108) 05/09/17 19:00 Mechanical Ventilator 05/09/17 07:00 6.00 Intake and Output 05/10/17 05/10/17 05/11/17 08:00 16:00 00:00 Intake Total 686 ml Output Total 230 ml Balance 456 ml Result Diagram: 05/10/17 0508 05/10/17 0508 Other Results Microbiology Date/Time Source Procedure Growth Status 05/07/17 16:24 Sputum Endotracheal Gram Stain - Final Complete 05/07/17 16:24 Sputum Endotracheal Sputum Culture - Final MODERATE GROWTH NORMAL RESPIRATORY GORDON Complete Imaging Last Impressions Chest X-Ray 05/08/17 0600 Signed Impressions: Service Date/Time: Monday, May 08, 2017 03:23 - CONCLUSION: 1. Cardiomegaly and findings of vascular congestion without overt failure. There has been no significant change when compared to the prior exam. Brian Mcmanus MD Abdomen X-Ray 05/08/17 0000 Signed Impressions: Service Date/Time: Monday, May 08, 2017 15:33 - CONCLUSION: Persistent mild dilatation of the ascending colon and transverse colon. Findings favor ileus. There are no findings to indicate small bowel obstruction. When correlating with prior CT it is felt unlikely to represent any colonic obstruction. Duncan Avery MD Enema w/Water Soluble 05/02/17 0000 Signed Impressions: Service Date/Time: Tuesday, May 02, 2017 08:02 - CONCLUSION: 1. Limited suboptimal exam. The cecum and right colon could not be opacified despite repeated attempts. 2. Residual stool and mild to moderate diverticulosis. Guevara Crowell MD Abdomen/Pelvis CT 05/02/17 0000 Signed Impressions: Service Date/Time: Tuesday, May 02, 2017 19:58 - CONCLUSION: 1. Nonspecific bowel gas pattern remains with contrast noted in the colon from the recent Gastrografin enema. The cecum remains distended. A rectal catheter is present. 2. No free air or fluid. 3. Small pleural effusions with mild consolidation in the lung bases. 4. Stable small adrenal masses likely representing adenomas. 5. Small nonobstructing left renal calculus. Guevara Crowell MD Catheter Placement X-Ray 05/01/17 0000 Signed Impressions: Service Date/Time: Monday, May 01, 2017 11:45 - CONCLUSION: Uncomplicated line placement as above. Brian Mcmanus MD Renal Ultrasound 04/20/17 0000 Signed Impressions: Service Date/Time: April 15:07 - CONCLUSION: 1. There is no hydronephrosis. 2. Stable 8mm nonobstructing left renal stone. Duncan Avery MD Head CT 04/19/17 0702 Signed Impressions: Service Date/Time: Wednesday, April 19, 2017 07:29 - CONCLUSION: 1. Cerebral white matter hypodensity characteristic of chronic microvascular ischemic disease. 2. No evidence of acute infarct, hemorrhage, mass or edema. Renato Coughlin MD Last Impressions Chest X-Ray 05/06/17 0000 Signed Impressions: Service Date/Time: Saturday, May 06, 2017 03:22 - CONCLUSION: Left IJ central venous catheter courses superiorly in the region of the SVC with the tip in the region of distal right internal jugular vein or right brachiocephalic vein. This could be retracted 5 cm. No evidence of pneumothorax. Hussain Green MD Abdomen X-Ray 05/04/17 0600 Signed Impressions: Service Date/Time: May 06:03 - CONCLUSION: Contrast through to the rectum. Basically stable dilatation of the proximal colon Duncan Delgado MD Enema w/Water Soluble 05/02/17 0000 Signed Impressions: Service Date/Time: Tuesday, May 02, 2017 08:02 - CONCLUSION: 1. Limited suboptimal exam. The cecum and right colon could not be opacified despite repeated attempts. 2. Residual stool and mild to moderate diverticulosis. Guevara Crowell MD Abdomen/Pelvis CT 05/02/17 0000 Signed Impressions: Service Date/Time: Tuesday, May 02, 2017 19:58 - CONCLUSION: 1. Nonspecific bowel gas pattern remains with contrast noted in the colon from the recent Gastrografin enema. The cecum remains distended. A rectal catheter is present. 2. No free air or fluid. 3. Small pleural effusions with mild consolidation in the lung bases. 4. Stable small adrenal masses likely representing adenomas. 5. Small nonobstructing left renal calculus. Guevara Crowell MD Catheter Placement X-Ray 05/01/17 0000 Signed Impressions: Service Date/Time: Monday, May 01, 2017 11:45 - CONCLUSION: Uncomplicated line placement as above. Brian Mcmanus MD Renal Ultrasound 04/20/17 0000 Signed Impressions: Service Date/Time: April 15:07 - CONCLUSION: 1. There is no hydronephrosis. 2. Stable 8mm nonobstructing left renal stone. Duncan Avery MD Head CT 04/19/17 0702 Signed Impressions: Service Date/Time: Wednesday, April 19, 2017 07:29 - CONCLUSION: 1. Cerebral white matter hypodensity characteristic of chronic microvascular ischemic disease. 2. No evidence of acute infarct, hemorrhage, mass or edema. Renato Coughlin MD Objective Remarks BP 193/77 Pulse 108 O2 saturation 100% on CPAP 15/5 FIO2 .40 GEN: 82-year-old female, currently orotracheally intubated responsive and interactive, in no acute distress Head - normocephalic atraumatic. ENT: Oropharynx without erythema access. Orotracheally intubated. Dressing clean dry and intact previous site of left central line Neck: Right IJ vasc catheter catheter C/D/I and intact without erythema or drainage. Cardiovascular: Sinus tachycardia S1, S2. No S4. Without murmur. Telemetry- ST HR110 Lungs: Diminished breath sounds bilaterally. Mild expiratory inspiratory wheezing Abdomen: Abdomen morbidly obese, soft nontender. No guarding, rebound, or rigidity. Normoactive bowel sounds. Dignishield continuous liquid stool Extremities: 1+ edema/anasarca Neurologic: RASS 0. Pupils are symmetrical 3 mm and reactive to light bilaterally. Patient following commands communicating by nodding of head appropriately. Moves all 4 extremity spontaneously. Procedures 05/10 - IR for permacath Date of Insertion: May 05, 2017 Date of Removal: May 07, 2017 Line: Central Venous Catheter Side: Left Location: Jugular A/P Assessment and Plan NEURO/PSYCH: Acute metabolic encephalopathy-resolved - Propofol for for vent synchrony while intubated,Fentanyl discontinued. Patient currently has propofol on hold continuous CPAP trials denies discomfort - Goal of RASS -2, Currently RASS 0 - Daily sedation vacation - CT of the head negative for acute findings, holding gabapentin - Morphine when necessary pain (held) - Tylenol 650 mg every 6 hours when necessary for pain RESP: Acute hypoxemic respiratory failure Pneumonia COPD with exacerbation Restrictive lung disease - Extubated 04/21. Reintubated 05/05 - PRVC 18/500/// Ventilator bundle -DuoNebs Continues on CPAP trials-14/11 FIO2 .40%. Currently since 05/07 0830 05/07 SBT NIF -30/ FVC 1.04 RSBI 30 with + cuff leak, chest x-ray 05/07 show pulmonary vascular congestion but no overt failure 05/09 SBT parameters failed - RSBI 95 , VT 240 NIF -31 FVC 390 Plan for repeat SBT post dialysis with a trial of extubation (ETT day 6)- discussion with family regarding possibility of tracheostomy 05/07 sputum culture- budding yeast, Micafungin (day 3) CV: Chronic A. fib Transient hypotension Hypertension -Goal to maintain MAP greater than equal to 65 - Rate controlled atrial fibrillation- HR > 100, SBP 160's. Metoprolol reinitiated 50 mg twice a day. Lisinopril patient's home med has been discontinued in the setting of CKD. Cardizem currently on hold -Holding Apixaban currently. Continue subcutaneous heparin - Anticoagulation hold for anemia.. Resume when clinically indicated -Restarted diltiazem 360mg/d , metoprolol 100 mg twice a day. 05/07- digoxin level 1.3 . Hold for now, janell in the setting of ARF. Last documented level 1.8 - normal saline at 42 cc /hr discontinued, PPN initiated last evening 42cc/hr - On atorvastatin 20 mg daily for dyslipidemia. GI: Colonic ileus Gastrografin enema 05/02. Proximal colonic dilatation. Patient is having bowel movements. No abdominal pain Famotidine for GI prophylaxis On metoclopramide 5 mg IV every 8 hours for colonic ileus per GI. Follow-up with GI for further recommendations 05/08 repeat KUB-mildly dilated ascending and transverse colon. Distention unchanged, but transverse colon distally more dilated 05/09 Begin PPN : Acute on chronic kidney disease Secondary hyperparathyroidism - Nephrology -Dr. Grewal - Monitor renal function closely. Nelson catheter. UOP last 24 hours- 580cc, IHD 05/09 3 L removed - Hemodialysis per nephrology. Currently on Monday/ and Monday - IR for permacath 05/10, obtained postdialysis labs - Continue Calciferol 0.25 mcg daily for secondary hyperparathyroidism ID: Severe sepsis resolved Pneumonia - Blood sputum and urine culture, all negative to date - Empiric cefepime and azithromycin for 7-10 days course completed - Sputum culture 05/07 budding yeast-micafungin day 2 HEME: Leukocytosis Normocytic anemia - Monitor CBC, CMP, INR -Holding apixaban ENDO: Hypothyroidism Type 2 diabetes - Continue levothyroxine at 125 g daily, sliding-scale insulin - SSI with every 6 hours Accu-Cheks on novolog to maintain euglycemia. Holding insulin detemir 10 units twice a day while nothing by mouth MSK: OA/OP Continue cholecalciferol 400 units twice a day PT evaluate and treat PT requested functional maintenance daily PROPH: - Bilateral lower extremity SCDs, heparin subcutaneous LINES: -Left IJ central line placed 05/05-05/07. right IJ-brachiocephalic Critical Care: The total critical care time was 31 minutes. Time to perform other separately billable procedures was not included in the critical care time. 05/07: Discussed with Vitaliy Sales and daughter. Full CODE STATUS. All family members acknowledge understanding and present in room during discussion. CODE STATUS will be changed. Palliative care consulted as well for goals of care. 05/08: Palliative of care meeting this afternoon, patient instituted daughter as primary POA. Physician Flavia Hernandez MD May 10, 2017 07:46
[2017-05-10 07:49] LABS: CORRECTED NUCLEATED RBC 1 /100 WBC (0-0); MYELOCYTES 1 % (0-0); NEUTROPHIL # MANUAL DIFF 13.6 TH/MM3 (1.8-7.7); POLYS (SEG NEUTROPHILS) 92 % (16-70); WBC DIFF SAMPLE 100
[2017-05-10 07:50] LABS: PLATELET ESTIMATE SMEAR LOW (NORMAL); PLATELET MORPHOLOGY NORMAL (NORMAL); SCAN/DIFF FINAL DIFF MANUAL
[2017-05-10] MEDS: CHLORHEXIDINE 0.12% (ORAL KIT) 15 ML CUP MT SCH ×2 (08:00→20:00)
[2017-05-10] MEDS: DILTIAZEM-CD 180 MG CAP ER PO SCH (09:00)
[2017-05-10] MEDS: CEFEPIME 1000 MG/NS 100 ML IV SCH ×2 (09:00)
[2017-05-10] MEDS: INSULIN DETEMIR 100 UNITS/ML VIAL SQ SCH ×2 (09:00→21:00)
[2017-05-10] MEDS: CHOLECALCIFEROL (VIT D3) 400 UNIT TAB PO SCH ×2 (09:00→21:00)
[2017-05-10] MEDS ORDERED: VANCOMYCIN INJ 1,000 MG in SODIUM CHLOR 0.9% 250 ML INJ 250 ML IV SCH (11:00)
--- NOTE | 2017-05-10 11:35 | HHI.NPPN ---
Subjective History of Present Illness Patient is a 82-year-old with sepsis, COPD, intubation, diabetes, acute renal failure and chronic kidney disease. Additional Remarks Patient remain on the vent, sedated, not in distress. Objective Data Data 05/10/17 05/11/17 19:00 07:00 Intake Total 100 ml Balance 100 ml IV Total 100 ml Vital Signs Date Time Temp Pulse Resp B/P (MAP) Pulse Ox O2 Delivery O2 Flow Rate FiO2 05/10/17 08:03 100 40 05/10/17 08:00 40 05/10/17 08:00 108 05/10/17 08:00 97.8 108 19 166/73 (104) 100 05/10/17 06:00 106 05/10/17 04:10 100 40 05/10/17 04:00 106 05/10/17 04:00 40 05/10/17 04:00 97.8 106 28 168/79 (108) 100 05/10/17 02:00 106 05/10/17 01:08 100 40 05/10/17 00:00 40 05/10/17 00:00 98.7 108 20 164/79 (107) 100 05/10/17 00:00 108 05/09/17 22:00 108 05/09/17 20:00 97.8 108 17 167/87 (113) 100 05/09/17 20:00 40 05/09/17 20:00 108 05/09/17 19:44 100 40 05/09/17 19:00 100 Mechanical Ventilator 40 05/09/17 18:00 108 05/09/17 16:00 40 05/09/17 16:00 98.0 108 20 147/68 (94) 100 05/09/17 16:00 107 05/09/17 15:35 100 40 05/09/17 14:00 108 05/09/17 13:00 100 40 05/09/17 12:00 106 05/09/17 12:00 40 05/09/17 12:00 98.7 106 27 166/90 (115) 100 -: 05/10/17 0508 05/10/17 0508 Physical Exam General Appearance: No Acute Distress, Comfortable, Obese Neck Neck Exam: Neck Supple Pulmonary Resp Exam: Decreased Bases Cardiology CV Exam: Arrhythmia Gastrointestinal/Abdomen GI Exam: Bowel Sounds Hypoactive Extremeties Extremities Exam: Trace Edema Neurologic Neuro Exam: Alert, Awake Psychiatric Psych Exam: Appropriate Responses Assessment/Plan Problem List: (1) Acute on chronic renal insufficiency ICD Codes: N28.9 - Disorder of kidney and ureter, unspecified; N18.9 - Chronic kidney disease, unspecified Status: Acute Plan: Patient is in acute renal failure and had chronic kidney disease ESRD with no recovery no recovery Eliquis on hold and give heparin place PermCath next Monday may need AVF as well GI and colorectal surgery following the patient. HD done yesterday 3 L off CPAP trials HD T,T,S schedule (2) Hypertension ICD Codes: I10 - Hypertension Status: Acute Plan: Blood pressure was low (3) Diabetes ICD Codes: E11.9 - Type 2 diabetes mellitus without complications Status: Acute Plan: Continue to monitor (4) COPD with acute exacerbation ICD Codes: J44.1 - Chronic obstructive pulmonary disease with (acute) exacerbation Plan: extubated Problem Qualifiers (1) Diabetes: Tonja Grewal MD May 10, 2017 11:35
[2017-05-10] MEDS ORDERED: MIDAZOLAM HCL 2 MG/2 ML VIAL ONE (12:39)
[2017-05-10] MEDS ORDERED: LIDOCAINE 1%/EPINEPHrine 1:100,000 SOLN 20 ML VIAL ONE (12:51)
[2017-05-10] MEDS: ARTIFICIAL TEARS OPTH SOLN 15 ML BTL EACH EYE SCH ×2 (14:00→22:00)
--- NOTE | 2017-05-10 14:08 | RADRPT ---
EXAM DATE/TIME: 05/10/2017 13:32 [facility] COMPARISON: No previous studies available for comparison. INDICATIONS : Patient with acute renal failure in need of tunnelled dialysis catheter placement. MEDICAL HISTORY : HTN, A-Fib, HLD, Diabetes, Hypothyroidism, COPD, Asthma, Chronic kidney disease on hemodialysis, Thyr oid cancer SURGICAL HISTORY : Dialysis catheter placement, Thyroidectomy, Partial small bowel resection, Cholecystectomy ENCOUNTER: Subsequent ACUITY: 1 month PAIN SCORE: Nonresponsive. FLUORO TIME: 1.2 minutes IMAGE SERIES: 1 SEDATION TIME: 30 minutes SEDATION: 1.) 1 mg midazolam (Versed) IV 2.) 50 mcg fentanyl (Sublimaze) IV Prophylactic antibiotics were administered with appropriate pre-procedure timing. Vancomycin within 2 hours of procedure, Ancef (or alternative) within 1 hour of procedure. DEVICE: 1. 15 Maori dual lumen 23 cm Tate II Plus catheter TECHNIQUE: The patient was placed supine on the fluoroscopy table. The existing right neck Vas-Cath was prepped with surrounding skin as a sterile field. Full sterile technique was used, inclu ding cap, mask, sterile gloves and gown and a large sterile sheet. Hand hygiene and 2% chlorhexidine and/or betadine/alcohol prep was utilized per protocol for cutaneous antisepsis. The skin and subcuta neous tissues were infiltrated with lidocaine solution. Under direct fluoroscopic guidance a stiff hy drophilic guidewire was introduced through the Vas-Cath and manipulated into the inferior vena cava t o maintain good stable access. A subcutaneous tract was created from the upper chest to the venotomy site. The Vas-Cath was removed and a valved peel-away sheath was introduced to the SVC. A 23 cm Canno n II+ hemodialysis permacath was inserted and positioned under direct fluoroscopic guidance at the ca va-atrial junction level. The catheter was fed retrograde through the subcutaneous tract. The cathete r was cut to the appropriate length and the hub apparatus attached. The catheter was flushed and lock ed with heparin per protocol. The catheter was secured with Prolene suture. The venotomy site was demar ssed with Steri-Strips. The patient tolerated the procedure well and was taken to the recovery area i n stable condition. CONCLUSION: Uncomplicated exchange of Vas-Cath for hemodialysis permacath with fluoroscopic romulo nce as above. The catheter can be used immediately. Duncan Delgado MD on May 10, 2017 at 14:04 Board Certified Radiologist. This report was verified electronically.
[2017-05-10] MEDS: MICAFUNGIN INJ 100 MG in SODIUM CHLORIDE 0.9% INJ 100 ML IV SCH (14:27)
[2017-05-10] MEDS: SODIUM CHLORIDE 0.9% FLUSH 10 ML FLUSH IV FLUSH SCH ×2 (14:27→21:00)
--- NOTE | 2017-05-10 14:28 | HHI.GIFU ---
Subjective Remarks Pt awake on ventilator. Nods appropriately. Denies abdominal pain. Pt was having diarrhea up until 2 days ago. No significant bowel movement for past two days. On PPN. (Yamile Cosme) Objective Vitals I&O Vital Signs Date Time Temp Pulse Resp B/P (MAP) Pulse Ox O2 Delivery O2 Flow Rate FiO2 05/10/17 12:00 85 05/10/17 12:00 98.1 85 18 160/59 (92) 100 05/10/17 11:40 100 40 05/10/17 11:40 40 05/10/17 08:03 100 40 05/10/17 08:00 40 05/10/17 08:00 108 05/10/17 08:00 97.8 108 19 166/73 (104) 100 05/10/17 06:00 106 05/10/17 04:10 100 40 05/10/17 04:00 106 05/10/17 04:00 40 05/10/17 04:00 97.8 106 28 168/79 (108) 100 05/10/17 02:00 106 05/10/17 01:08 100 40 05/10/17 00:00 40 05/10/17 00:00 98.7 108 20 164/79 (107) 100 05/10/17 00:00 108 05/09/17 22:00 108 05/09/17 20:00 97.8 108 17 167/87 (113) 100 05/09/17 20:00 40 05/09/17 20:00 108 05/09/17 19:44 100 40 05/09/17 19:00 100 Mechanical Ventilator 40 05/09/17 18:00 108 05/09/17 16:00 40 05/09/17 16:00 98.0 108 20 147/68 (94) 100 05/09/17 16:00 107 05/09/17 15:35 100 40 I/O 05/09/17 05/09/17 05/09/17 05/10/17 05/10/17 05/10/17 07:00 15:00 23:00 07:00 15:00 23:00 Intake Total 636 ml 100 ml 806 ml 686 ml 100 ml Output Total 275 ml 3350 ml 230 ml Balance 361 ml 100 ml -2544 ml 456 ml 100 ml IV Total 516 ml 100 ml 806 ml 536 ml 100 ml Tube Irrigant 120 ml 150 ml Output Urine Total 275 ml 350 ml 230 ml Stool Total 0 ml 0 ml 0 ml Hemodialysis 3000 ml Bladder Scan Volume Amount 130 ml # Bowel Movements 0 Laboratory Laboratory Tests Test 05/10/17 05:08 White Blood Count 14.6 Red Blood Count 3.42 Hemoglobin 10.4 Hematocrit 32.7 Mean Corpuscular Volume 95.7 Mean Corpuscular Hemoglobin 30.5 Mean Corpuscular Hemoglobin Concent 31.9 Red Cell Distribution Width 17.4 Platelet Count 85 Mean Platelet Volume 8.7 Neutrophils (%) (Auto) 89.1 Lymphocytes (%) (Auto) 5.2 Monocytes (%) (Auto) 4.7 Eosinophils (%) (Auto) 0.6 Basophils (%) (Auto) 0.4 Neutrophils # (Auto) 13.0 Lymphocytes # (Auto) 0.8 Monocytes # (Auto) 0.7 Eosinophils # (Auto) 0.1 Basophils # (Auto) 0.1 CBC Comment AUTO DIFF Differential Total Cells Counted 100 Neutrophils % (Manual) 92 Lymphocytes % 3 Monocytes % 4 Neutrophils # (Manual) 13.6 Myelocytes 1 Nucleated Red Blood Cells 1 Differential Comment FINAL DIFF MANUAL Platelet Estimate LOW Platelet Morphology Comment NORMAL Prothrombin Time 11.8 Prothromb Time International Ratio 1.1 Blood Urea Nitrogen 32 Creatinine 3.92 Random Glucose 140 Total Protein 7.0 Albumin 2.4 Calcium Level 8.4 Phosphorus Level 2.8 Magnesium Level 2.0 Alkaline Phosphatase 88 Aspartate Amino Transf (AST/SGOT) 36 Alanine Aminotransferase (ALT/SGPT) 36 Total Bilirubin 0.7 Sodium Level 137 Potassium Level 3.7 Chloride Level 100 Carbon Dioxide Level 24.9 Anion Gap 12 Estimat Glomerular Filtration Rate 13 Date/Time Source Procedure Growth Status 04/19/17 16:54 Blood Peripheral Aerobic Blood Culture - Final NO GROWTH IN 5 DAYS Complete 04/19/17 16:54 Blood Peripheral Anaerobic Blood Culture - Final NO GROWTH IN 5 DAYS Complete 05/06/17 09:30 Stool Stool Stool Occult Blood (LAYLA) - Final HEMOCCULT POSITIVE Complete 05/07/17 16:24 Sputum Endotracheal Gram Stain - Final Complete 05/07/17 16:24 Sputum Endotracheal Sputum Culture - Final MODERATE GROWTH NORMAL RESPIRATORY GORDON Complete 04/19/17 06:15 Urine Clean Catch Urine Culture - Final NO GROWTH Complete Imaging Last Impressions Chest X-Ray 05/10/17 0600 Signed Impressions: Service Date/Time: Wednesday, May 10, 2017 05:05 - CONCLUSION: 1. Improving pulmonary edema. 2. Improving left basilar atelectasis versus pneumonia Brian Mcmanus MD Abdomen X-Ray 05/08/17 0000 Signed Impressions: Service Date/Time: Monday, May 08, 2017 15:33 - CONCLUSION: Persistent mild dilatation of the ascending colon and transverse colon. Findings favor ileus. There are no findings to indicate small bowel obstruction. When correlating with prior CT it is felt unlikely to represent any colonic obstruction. Duncan Avery MD Enema w/Water Soluble 05/02/17 0000 Signed Impressions: Service Date/Time: Tuesday, May 02, 2017 08:02 - CONCLUSION: 1. Limited suboptimal exam. The cecum and right colon could not be opacified despite repeated attempts. 2. Residual stool and mild to moderate diverticulosis. Guevara Crowell MD Abdomen/Pelvis CT 05/02/17 0000 Signed Impressions: Service Date/Time: Tuesday, May 02, 2017 19:58 - CONCLUSION: 1. Nonspecific bowel gas pattern remains with contrast noted in the colon from the recent Gastrografin enema. The cecum remains distended. A rectal catheter is present. 2. No free air or fluid. 3. Small pleural effusions with mild consolidation in the lung bases. 4. Stable small adrenal masses likely representing adenomas. 5. Small nonobstructing left renal calculus. Guevara Crowell MD Catheter Placement X-Ray 05/01/17 0000 Signed Impressions: Service Date/Time: Monday, May 01, 2017 11:45 - CONCLUSION: Uncomplicated line placement as above. Brian Mcmanus MD Renal Ultrasound 04/20/17 0000 Signed Impressions: Service Date/Time: April 15:07 - CONCLUSION: 1. There is no hydronephrosis. 2. Stable 8mm nonobstructing left renal stone. Duncan Avery MD Head CT 04/19/17 0702 Signed Impressions: Service Date/Time: Wednesday, April 19, 2017 07:29 - CONCLUSION: 1. Cerebral white matter hypodensity characteristic of chronic microvascular ischemic disease. 2. No evidence of acute infarct, hemorrhage, mass or edema. Renato Coughlin MD Physical Exam HEENT: Normocephalic; atraumatic; no jaundice. Orotracheally intubated. CHEST: Diminished breath sounds. CARDIAC: RRR ABDOMEN: Soft, obese, nontender; no hepatosplenomegaly; bowel sounds are present in all four quadrants. Flexiseal with scant amount of liquid stool in tubing EXTREMITIES: Anasarca SKIN: Normal; no rash; no jaundice. PROPERTY CLAIMS MANAGER: Awake. Lethargic. Generalized weakness. (Yamile Cosme) Assessment and Plan Plan ASSESSMENT: - Anemia - Hemoglobin dropped to 5.8 on 05/06. S/P 2 units PRBC on 05/06. Hemoccult positive. HH has remained stable. No active bleeding. - Abdominal pain, colonic ileus. KUB (04/30/17)----> Gaseous dilatation of colon greatest in the cecal region measuring up to 13 cm. Differential diagnosis includes ileus. A distal colonic obstruction could have a similar appearance. Of note, she has a history of SBO and underwent exploratory laparotomy with lysis of adhesions for abdominal pain, probable small bowel obstruction (01/05/13) with Dr. Tam. S/P Gastrografin Enema (05/02/17)--> Limited suboptimal exam. The cecum and right colon could not be opacified despite repeated attempts. Residual stool and mild to moderate diverticulosis. CT Scan abdomen and pelvis without iv contrast (05/02/17)--> nonspecific bowel gas pattern remains with contrast noted in the colon from recent Gastrografin enema. The cecum remains distended. A rectal catheter. No free air or fluid. Small pleural effusions with mild consolidation in the lung bases. Stable small adrenal masses likely representing adenomas. Small nonobstructing left renal calculus. KUB (05/08/17)---> Persistent mild dilatation of the ascending colon and transverse colon. Findings favor ileus. There are no findings to indicate a small bowel obstruction. When correlating with prior CT it is felt unlikely to represent any colonic obstruction. Will give 2 SSE. Start trickle feeds. PPN - Acute on chronic kidney disease with electrolyte abnormalities. S/P Permacath , HD per renal - Respiratory failure, COPD Exacerbation, PNA. S/P Abx. Now intubated - Atrial fibrillation. Digoxin, cardizem, BB - HTN, DM, metabolic encephalopathy, hypothyroidism per attending PLAN: - Plan for EGD in am - Obtain consents- D/W patient/daughter procedure, risks, benefits and they would like to proceed - Prevacid - SSE x 2 - KUB in am - Start Nepro at 20cc/hr- hold if worsening distention - NPO after MN - Monitor HH, transfuse as needed - Monitor labs - Supportive care - Further recommendations to follow based on results of above - Patient seen and examined by Dr. Hernández and myself and this note is written on his behalf (Yamile Cosme) Physician Comments Seen and examined, plan as above. Will proceed with EGD in AM. (Benton Hernández MD) Yamile Cosme May 10, 2017 14:28 Benton Hernández MD May 10, 2017 17:26
--- NOTE | 2017-05-10 14:28 | PD.RAD ---
Post Procedure Progress Note Pre Procedure Diagnosis: (1) Acute on chronic kidney failure Post Procedure Diagnosis: (1) Acute on chronic kidney failure Procedure Date: May 10, 2017 Supervising Radiologist: Duncan Delgado Proceduralist/Assist: RT Kodi(R) Anesthesia: Local, Conscious Sedation Plan of Activity Patient to Unit: ROPU Patient Condition: Good See PACS Report for procedural detail/treatment Central Venous Access Device Procedure 1 Right Internal Jugular Hemodialysis Catheter Tunneled Placement dual lumen Citizen Of [place]: 15 Additional Detail: 23cm Duncan Kerns II, MD May 10, 2017 14:28
[2017-05-10] MEDS ORDERED: SODIUM CHLORIDE 0.9% FLUSH 10 ML FLUSH IV FLUSH PRN (14:30)
[2017-05-10] MEDS ORDERED: HEPARIN SODIUM - IV 2,000 UNITS/2 ML VIAL IV FLUSH PRN (14:30)
--- NOTE | 2017-05-10 15:44 | HHI.HCPN ---
Reason for visit a. To assist with evaluation and management of symptoms including: Debility , pain, dyspnea b. To assist medical decision maker(s) with: better understanding of current medical conditions; weighing benefits/burdens of medical treatment options; making medical treatment decisions. . Subjective/Interval History Ms. Sales was seen and assessed in room 1336 s/p PermCath placement. Awake on mechanical ventilator. Patient failed SBT yesterday; plan to repeat SBT trail with possible extubation later today. Follow up CXR this morning showed improving pulmonary edema and improving left basilar atelectasis vs. pneumonia. KUB on 05/08/17 showed persistent mild dilatation of the ascending colon and transverse colon. Findings favor ileus. There was no indication for small bowel obstruction. When correlating with prior CT it is unlikely to represent any colonic obstruction. Patient was having diarrhea until 2 days ago with no significant bowel movement 2 days. Soapsuds enema ordered; starting Nepro at 20 mL's per hour. Plan for EGD in a.m. 05/11/2017. . Advance Directives Advance Directive Specifics Date completed: 05/08/2017 . Health Care Surrogate(s): Health care surrogate form completed 05/08/2017 designating the patient's daughter (Shilpa) as the healthcare surrogate decision maker. The patient's son (Jason) is the alternate health care surrogate decision maker. Documented care wishes: Healthcare surrogate form was completed 05/08/2017. No other documented care wishes have been completed. Plan to discuss written advanced directives/living will after the patient has been extubated in the upcoming days. . Objective Vital Signs Date Time Temp Pulse Resp B/P (MAP) Pulse Ox O2 Delivery O2 Flow Rate FiO2 05/10/17 13:00 100 100 05/10/17 12:00 85 05/10/17 12:00 98.1 85 18 160/59 (92) 100 05/10/17 11:40 100 40 05/10/17 11:40 40 05/10/17 08:03 100 40 05/10/17 08:00 40 05/10/17 08:00 108 05/10/17 08:00 97.8 108 19 166/73 (104) 100 05/10/17 06:00 106 05/10/17 04:10 100 40 05/10/17 04:00 106 05/10/17 04:00 40 05/10/17 04:00 97.8 106 28 168/79 (108) 100 05/10/17 02:00 106 05/10/17 01:08 100 40 05/10/17 00:00 40 05/10/17 00:00 98.7 108 20 164/79 (107) 100 05/10/17 00:00 108 05/09/17 22:00 108 05/09/17 20:00 97.8 108 17 167/87 (113) 100 05/09/17 20:00 40 05/09/17 20:00 108 05/09/17 19:44 100 40 05/09/17 19:00 100 Mechanical Ventilator 40 05/09/17 18:00 108 05/09/17 16:00 40 05/09/17 16:00 98.0 108 20 147/68 (94) 100 05/09/17 16:00 107 05/09/17 15:35 100 40 Intake & Output 05/10/17 05/10/17 07:00 19:00 Intake Total 686 ml 100 ml Output Total 230 ml Balance 456 ml 100 ml IV Total 536 ml 100 ml Tube Irrigant 150 ml Output Urine Total 230 ml Stool Total 0 ml . Physical Exam CONSTITUTIONAL/GENERAL: This is an elderly female who remains orotracheally intubated, alert and interactive. TUBES/LINES/DRAINS: OGT, ETT, Nelson catheter, digni-shield, soft restraints, Vas -Cath, PIV 2 SKIN: Skin temperature appropriate. Not diaphoretic. HEAD: Atraumatic. Normocephalic. EYES: Pupils equal and round and reactive. Extraocular motions intact. No scleral icterus. No injection or drainage. Fundi not examined. ENT: Hearing grossly normal. Nose without bleeding or purulent drainage. NECK: Trachea midline. CARDIOVASCULAR: Sinus rhythm without murmur. No Gallops, or rubs. No JVD. Peripheral pulses symmetric. RESPIRATORY/CHEST: Remains intubated on mechanical ventilator Breath sounds diminished bilaterally. GASTROINTESTINAL: Abdomen soft, non-tender, nondistended. Bowel sounds present. GENITOURINARY: Without palpable bladder distension. Nelson catheter in place. MUSCULOSKELETAL: Extremities without clubbing or cyanosis. LYMPHATICS: No palpable cervical or supraclavicular adenopathy. NEUROLOGICAL: Awake and interactive off sedation. Generalized weakness PSYCHIATRIC: No obvious anxiety/depression. no apparent hallucinations or other psychotic thought process. . Diagnostic Tests Laboratory Laboratory Tests Test 05/08/17 05:05 05/10/17 05:08 White Blood Count 14.7 TH/MM3 (4.0-11.0) 14.6 TH/MM3 (4.0-11.0) Red Blood Count 3.19 MIL/MM3 (4.00-5.30) 3.42 MIL/MM3 (4.00-5.30) Hemoglobin 9.4 GM/DL (11.6-15.3) 10.4 GM/DL (11.6-15.3) Hematocrit 28.8 % (35.0-46.0) 32.7 % (35.0-46.0) Mean Corpuscular Volume 90.3 FL (80.0-100.0) 95.7 FL (80.0-100.0) Mean Corpuscular Hemoglobin 29.6 PG (27.0-34.0) 30.5 PG (27.0-34.0) Mean Corpuscular Hemoglobin Concent 32.7 % (32.0-36.0) 31.9 % (32.0-36.0) Red Cell Distribution Width 17.7 % (11.6-17.2) 17.4 % (11.6-17.2) Platelet Count 119 TH/MM3 (150-450) 85 TH/MM3 (150-450) Mean Platelet Volume 8.2 FL (7.0-11.0) 8.7 FL (7.0-11.0) Neutrophils (%) (Auto) 92.9 % (16.0-70.0) 89.1 % (16.0-70.0) Lymphocytes (%) (Auto) 1.4 % (9.0-44.0) 5.2 % (9.0-44.0) Monocytes (%) (Auto) 5.5 % (0.0-8.0) 4.7 % (0.0-8.0) Eosinophils (%) (Auto) 0.2 % (0.0-4.0) 0.6 % (0.0-4.0) Basophils (%) (Auto) 0.0 % (0.0-2.0) 0.4 % (0.0-2.0) Neutrophils # (Auto) 13.7 TH/MM3 (1.8-7.7) 13.0 TH/MM3 (1.8-7.7) Lymphocytes # (Auto) 0.2 TH/MM3 (1.0-4.8) 0.8 TH/MM3 (1.0-4.8) Monocytes # (Auto) 0.8 TH/MM3 (0-0.9) 0.7 TH/MM3 (0-0.9) Eosinophils # (Auto) 0.0 TH/MM3 (0-0.4) 0.1 TH/MM3 (0-0.4) Basophils # (Auto) 0.0 TH/MM3 (0-0.2) 0.1 TH/MM3 (0-0.2) CBC Comment DIFF FINAL AUTO DIFF Differential Comment FINAL DIFF MANUAL Blood Urea Nitrogen 39 MG/DL (7-18) 32 MG/DL (7-18) Creatinine 4.56 MG/DL (0.50-1.00) 3.92 MG/DL (0.50-1.00) Random Glucose 162 MG/DL (74-106) 140 MG/DL (74-106) Calcium Level 8.0 MG/DL (8.5-10.1) 8.4 MG/DL (8.5-10.1) Phosphorus Level 1.9 MG/DL (2.5-4.9) 2.8 MG/DL (2.5-4.9) Magnesium Level 1.9 MG/DL (1.5-2.5) 2.0 MG/DL (1.5-2.5) Sodium Level 140 MEQ/L (136-145) 137 MEQ/L (136-145) Potassium Level 3.6 MEQ/L (3.5-5.1) 3.7 MEQ/L (3.5-5.1) Chloride Level 103 MEQ/L (98-107) 100 MEQ/L (98-107) Carbon Dioxide Level 22.5 MEQ/L (21.0-32.0) 24.9 MEQ/L (21.0-32.0) Anion Gap 15 MEQ/L (5-15) 12 MEQ/L (5-15) Estimat Glomerular Filtration Rate 11 ML/MIN (>89) 13 ML/MIN (>89) Procalcitonin 0.16 ng/mL (0.00-0.08) Differential Total Cells Counted 100 Neutrophils % (Manual) 92 % (16-70) Lymphocytes % 3 % (9-44) Monocytes % 4 % (0-8) Neutrophils # (Manual) 13.6 TH/MM3 (1.8-7.7) Myelocytes 1 % (0-0) Nucleated Red Blood Cells 1 /100 WBC (0-0) Platelet Estimate LOW (NORMAL) Platelet Morphology Comment NORMAL (NORMAL) Prothrombin Time 11.8 SEC (9.8-11.6) Prothromb Time International Ratio 1.1 RATIO Total Protein 7.0 GM/DL (6.4-8.2) Albumin 2.4 GM/DL (3.4-5.0) Alkaline Phosphatase 88 U/L (45-117) Aspartate Amino Transf (AST/SGOT) 36 U/L (15-37) Alanine Aminotransferase (ALT/SGPT) 36 U/L (10-53) Total Bilirubin 0.7 MG/DL (0.2-1.0) . Result Diagram: 05/10/17 0508 05/10/17 0508 Microbiology Microbiology Date/Time Source Procedure Growth Status 05/07/17 16:24 Sputum Endotracheal Gram Stain - Final Complete 05/07/17 16:24 Sputum Endotracheal Sputum Culture - Final MODERATE GROWTH NORMAL RESPIRATORY GORDON Complete Imaging Last 72 hours Impressions Catheter Placement X-Ray 05/10/17 0730 Signed Impressions: Service Date/Time: Wednesday, May 10, 2017 13:32 - CONCLUSION: Uncomplicated exchange of Vas-Cath for hemodialysis permacath with fluoroscopic guidance as above. The catheter can be used immediately. Duncan Delgado MD Chest X-Ray 05/10/17 0600 Signed Impressions: Service Date/Time: Wednesday, May 10, 2017 05:05 - CONCLUSION: 1. Improving pulmonary edema. 2. Improving left basilar atelectasis versus pneumonia Brian Mcmanus MD Chest X-Ray 05/08/17 0600 Signed Impressions: Service Date/Time: Monday, May 08, 2017 03:23 - CONCLUSION: 1. Cardiomegaly and findings of vascular congestion without overt failure. There has been no significant change when compared to the prior exam. Brian Mcmanus MD Abdomen X-Ray 05/08/17 0000 Signed Impressions: Service Date/Time: Monday, May 08, 2017 15:33 - CONCLUSION: Persistent mild dilatation of the ascending colon and transverse colon. Findings favor ileus. There are no findings to indicate small bowel obstruction. When correlating with prior CT it is felt unlikely to represent any colonic obstruction. Duncan Avery MD . Procedures 04/19/17: Intubation 04/19/17: OGT placement 04/21/17: Extubation 05/01/17: NGT placed. 05/05/17: Reintubation; Left IJ central line placement 05/10/2017: PermCath placement Assessment and Plan Disease Oriented Problem List: (1) Hypothyroidism (2) Hyperlipidemia (3) Diabetes (4) Pneumonia (5) Atrial fibrillation (6) Acute on chronic kidney failure (7) COPD with acute exacerbation (8) Acute metabolic encephalopathy (9) Peripheral neuropathy (10) History of small bowel obstruction (11) History of thyroid cancer Symptom Scale: (1) Debility (2) Dyspnea (3) Pain Pertinent Non-Medical Issues Psychosocial: Patient is originally from [place]. She had 3 children. Daughter (Shilpa) lives in [place], [place] and son (Jason) lives in [place], [place]. Patient had another daughter who from breast cancer. Patient was remarried after her ; she is currently to her second (Vitaliy). 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 She has 25 grandchildren/great- grandchildren. Spiritual: [employer] Legal:Health care surrogate form completed 05/08/2017 designating the patient's daughter (Shilpa) as the healthcare surrogate decision maker. The patient's son (Jason) is the alternate health care surrogate decision maker. Ethical issues impacting care: No known ethical issues impacting care at this time. . Important Contacts Vitaliy Sales, spouse: [phone] or [phone] (cell) Shilpa Gonzales daughter/[facility]: [phone] Jason Sales son/alternate [facility]: [phone] . Prognosis Patient is an 82-year-old female who has been admitted 3 times in 2017 for management of respiratory failure/pneumonia. She has required intubation/ mechanical ventilation x 2 since her admission on 04/19/2017. Given patient's complex medical history with recurrent hospitalizations, advanced age and recent decline in functional status, she is high risk for ongoing setbacks and complications. . Code Status: Full Code Plan * FULL CODE * Health care surrogate form completed 05/08/2017 designating the patient's daughter (Shilpa) as the healthcare surrogate decision maker. The patient's son (Jason) is the alternate health care surrogate decision maker. * Discussed patient with Dr. Angelo and bedside nurse * Symptom management-dyspnea: Patient remains intubated. She has been intubated 2 times since being admitted on 07/20/16. Sputum culture 05/07/2017 with budding yeast-on micafungin, cefepime and Levaquin. Awake on mechanical ventilator. Patient failed SBT yesterday; plan to repeat SBT trail with possible extubation later today. Follow up CXR this morning showed improving pulmonary edema and improving left basilar atelectasis vs. pneumonia. * Symptom management-pain: Patient showing no signs or symptoms of nonverbal pain on exam; she denies pain when asked. Possible causes of pain include immobility, bedbound status, invasiveness lines, obesity, intubation, infection. Patient is of sedation; no PRN pain medications are ordered at this time. Will continue to monitor and make recommendations as appropriate. * Symptom management-disability: Patient lives at home with her ; she is independent for all ADLs. Her activity at baseline is limited by her weight. Patient is independent in gait with a cane; and uses a walker for more extensive activity. Patient requires home oxygen and CPAP at night. Shilpa ( daughter) states she saw the patient when she was hospitalized in 08/2016 and again 6 months later 03/2017. Per Shilpa, her mother has declined in the past 6 months. She states her mother has becomes more withdrawn and lethargic. Patient spends most of her time in bed and becomes fatigued after being OOB for short periods of time (<30minutes). Goal is to discharge patient to SNF for rehabilitation before returning home. * Patient has been admitted 3 times in 2017 for management of respiratory failure/pneumonia. She has required intubation/mechanical ventilation x 2 since her admission on 04/19/2017. Given patient's complex medical history with recurrent hospitalizations, advanced age and recent decline in functional status , she is high risk for ongoing setbacks and complications. Per case management notes, patient has been accepted at [facility] and [facility] was contacted regarding dialysis. * Palliative care will continue to follow patient throughout this hospitalization to establish trust, assist with symptom management and clarification of medical treatment goals. . Attestation To help prompt me to consider important information that might be impacting today's encounter and assessment, information from prior notes written by myself or my colleagues may have been "brought forward" into today's note. My signature on this note, however, is an attestation that I personally performed the exam, history, and/or decision-making noted today, and, unless otherwise indicated, the interactions with patient, family, and staff as well as the review of records all occurred today. I also attest that the listed assessment and stated plan reflect my best clinical judgment today based on the combination of historical information, prior notes, and today's exam/ interactions. When time spent is documented, it refers only to time spent today by the signer, or if indicated, combined time spent today by collaborating physician/nurse practitioner. . Yulissa Barraza May 10, 2017 15:44
[2017-05-10] MEDS: LEVOFLOXACIN/DEXTROSE 250 MG/50 ML IV SCH (17:00)
[2017-05-10] MEDS: RESP: ALBUTEROL 2.5 MG/3 ML NEB (PRN) NEB (17:40)
[2017-05-10] MEDS: CLINIMIX 4.25/5 (Cust.Renal Periph) 1000 mL- </= 42 mls/hr IV SCH ×8 (21:37)
[2017-05-10] MEDS: ATORVASTATIN 20 MG TAB PO SCH (21:39)
[2017-05-10] MEDS: FAT EMULSION 20% INJ 250 ML (@10 mls/hr) IV SCH (21:39)
[2017-05-11] VITALS (18 sets, daily range): BP systolic 111–169; BP diastolic 55–87; PULSE 74–110; RESP 16–21; TEMP 98–99; O2SAT 100
[2017-05-11] MEDS: INSULIN ASPART SUPPLEMENTAL SCALE SQ SCH ×4 (06:00→18:00)
[2017-05-11] MEDS: HEPARIN SODIUM - SQ 10,000 UNITS/ML VIAL SQ SCH ×3 (06:00→21:39)
[2017-05-11] MEDS: ARTIFICIAL TEARS OPTH SOLN 15 ML BTL EACH EYE SCH ×3 (06:00→21:39)
[2017-05-11] MEDS: LEVOTHYROXINE SODIUM 125 MCG TAB PO SCH (06:06)
[2017-05-11 06:12] LABS: HEMATOCRIT 26.8 % (35.0-46.0); MEAN CELL VOLUME 92.7 FL (80.0-100.0); MEAN CORPUSCULAR HEMOGLOBIN 30.9 PG (27.0-34.0); MEAN CORPUSCULAR HGB CONC 33.3 % (32.0-36.0); PLATELET COUNT 99 TH/MM3 (150-450); RED BLOOD COUNT 2.89 MIL/MM3 (4.00-5.30); RED CELL DISTRIBUTION WIDTH 17.8 % (11.6-17.2); WHITE BLOOD COUNT 8.3 TH/MM3 (4.0-11.0)
[2017-05-11 06:18] LABS: REVIEW FLAG FINAL
--- NOTE | 2017-05-11 06:30 | RADRPT ---
EXAM DATE/TIME: 05/11/2017 05:49 [facility] COMPARISON: CHEST SINGLE AP, May 10, 2017, 5:05. INDICATIONS : Respiratory distress. MEDICAL HISTORY : Cardiovascular disease. Hypertension. Diabetes mellitus type 2. SURGICAL HISTORY : Perm cath. ENCOUNTER: Subsequent ACUITY: 3 weeks PAIN SCORE: Non-responsive. LOCATION: Bilateral chest FINDINGS: The cardiac silhouette is enlarged in transverse diameter. There is prominence of the central pulmona ry vasculature with indistinct vascular margins compatible with vascular congestion but no evidence o f overt failure. A permacath is in place via right internal jugular approach with its tip in the supe rior vena cava. CONCLUSION: 1. Cardiomegaly and findings of vascular congestion without overt failure. There has been no signific ant change when compared to the prior exam. Brian Mcmanus MD on May 11, 2017 at 6:28 Board Certified Radiologist. This report was verified electronically.
[2017-05-11 06:31] LABS: BICARBONATE 24.3 MEQ/L (21.0-32.0); MAGNESIUM 1.9 MG/DL (1.5-2.5); POTASSIUM 3.6 MEQ/L (3.5-5.1)
--- NOTE | 2017-05-11 06:31 | RADRPT ---
EXAM DATE/TIME: 05/11/2017 05:52 [place] COMPARISON: ABDOMEN KUB ONLY, May 08, 2017, 15:33. INDICATIONS : Abdominal distention. Possible ileus. MEDICAL HISTORY : Cardiovascular disease. Hypertension. Diabetes mellitus type 2. SURGICAL HISTORY : None. ENCOUNTER: Subsequent ACUITY: 3 weeks PAIN SCORE: Non-responsive. LOCATION: all quadrants. FINDINGS: Examination of the abdomen demonstrates gaseous distention of the colon most consistent with ileus .T here are no findings of small bowel obstruction. No free air is identified. No organomegaly is eviden t. CONCLUSION: 1. Continued colonic ileus. There has been no significant change when compared to the prior exam. Brian Mcmanus MD on May 11, 2017 at 6:29 Board Certified Radiologist. This report was verified electronically.
[2017-05-11] MEDS: CHLORHEXIDINE 0.12% (ORAL KIT) 15 ML CUP MT SCH ×2 (08:00→21:37)
[2017-05-11] MEDS: MULTIVITAMINS/MINERALS THERAPEUTIC TAB PO SCH ×2 (08:34→21:38)
[2017-05-11] MEDS: SODIUM CHLORIDE 0.9% FLUSH 10 ML FLUSH IV FLUSH SCH ×2 (08:34→21:38)
[2017-05-11] MEDS: DILTIAZEM-CD 180 MG CAP ER PO SCH (08:34)
[2017-05-11] MEDS: CHOLECALCIFEROL (VIT D3) 400 UNIT TAB PO SCH ×2 (08:34→21:39)
[2017-05-11] MEDS: METOPROLOL TARTRATE 50 MG TAB PO SCH ×2 (08:34→21:00)
[2017-05-11] MEDS: CEFEPIME 1000 MG/NS 100 ML IV SCH ×2 (08:34)
[2017-05-11] MEDS: LACTOBACILLUS ACIDOPHILUS TAB PO SCH ×3 (08:34→18:00)
[2017-05-11] MEDS: CALCITRIOL 0.25 MCG CAP PO SCH (08:34)
[2017-05-11] MEDS: INSULIN DETEMIR 100 UNITS/ML VIAL SQ SCH (08:34)
[2017-05-11] MEDS: LANSOPRAZOLE SOLUTAB 30 MG TAB NG SCH (08:34)
--- NOTE | 2017-05-11 10:48 | HHI.NPPN ---
Subjective History of Present Illness Patient is a 82-year-old with sepsis, COPD, intubation, diabetes, acute renal failure and chronic kidney disease. Additional Remarks Patient remain on the vent, going for colonoscopy Objective Data Data Vital Signs Date Time Temp Pulse Resp B/P (MAP) Pulse Ox O2 Delivery O2 Flow Rate FiO2 05/11/17 08:20 100 40 05/11/17 08:00 98.9 88 18 148/67 (94) 100 05/11/17 08:00 88 05/11/17 08:00 40 05/11/17 06:00 102 05/11/17 04:16 100 40 05/11/17 04:00 74 05/11/17 04:00 98.0 74 18 147/69 (95) 100 05/11/17 04:00 40 05/11/17 02:00 106 05/11/17 01:10 100 40 05/11/17 00:00 40 05/11/17 00:00 98.0 106 18 169/87 (114) 100 05/11/17 00:00 106 05/10/17 22:00 108 05/10/17 20:00 40 05/10/17 20:00 97.8 106 18 145/68 (93) 100 05/10/17 20:00 106 05/10/17 19:49 100 40 05/10/17 19:00 100 Mechanical Ventilator 40 05/10/17 18:26 40 05/10/17 17:40 40 05/10/17 16:43 100 40 05/10/17 16:00 98.0 107 18 173/81 (111) 100 05/10/17 16:00 107 05/10/17 14:00 40 05/10/17 13:00 100 100 05/10/17 12:00 85 05/10/17 12:00 98.1 85 18 160/59 (92) 100 05/10/17 11:40 100 40 05/10/17 11:40 40 -: 05/11/17 0553 05/11/17 0553 Physical Exam General Appearance: No Acute Distress, Comfortable, Obese Neck Neck Exam: Neck Supple Pulmonary Resp Exam: Decreased Bases Cardiology CV Exam: Arrhythmia Gastrointestinal/Abdomen GI Exam: Bowel Sounds Hypoactive Extremeties Extremities Exam: Trace Edema Neurologic Neuro Exam: Alert, Awake Psychiatric Psych Exam: Appropriate Responses Assessment/Plan Problem List: (1) Acute on chronic renal insufficiency ICD Codes: N28.9 - Disorder of kidney and ureter, unspecified; N18.9 - Chronic kidney disease, unspecified Status: Acute Plan: Patient is in acute renal failure and had chronic kidney disease ESRD with no recovery no recovery Eliquis on hold and give heparin placed PermCath yesterday may need AVF as well GI and colorectal surgery following the patient. colonoscopy EGD replace KPO4 HD T,T,S schedule (2) Hypertension ICD Codes: I10 - Hypertension Status: Acute Plan: Blood pressure was low (3) Diabetes ICD Codes: E11.9 - Type 2 diabetes mellitus without complications Status: Acute Plan: Continue to monitor (4) COPD with acute exacerbation ICD Codes: J44.1 - Chronic obstructive pulmonary disease with (acute) exacerbation Plan: extubated Problem Qualifiers (1) Diabetes: Tonja Grewal MD May 11, 2017 10:48
--- NOTE | 2017-05-11 10:58 | HHI.CCPN ---
Subjective Remarks/Hospital Course The patient is an 82 year old female past with past medical history significant for hypertension, atrial fibrillation, diabetes mellitus, obesity, hypothyroidism, hyperlipidemia, diabetic neuropathy, who was seen in ED 3 days ago bronchospasm. She has COPD/Asthma and restrictive lung disease related to her obesity. Patient was treated for reactive airway disease, given breathing treatments and was discharged on as needed inhalers. Patient was brought in today by her as she was having shortness of breath and on the way to the ED when she slumped over in the car. In the emergency department she showed agonal breathing, she was intubated for airway protection emergently. Patient was given Solu-Medrol and breathing treatments and was placed on the mechanical ventilation. Chest x-ray showed bilateral infiltrates concerning for pneumonia. CT of the head was negative. I evaluated the patient in the ICU. She is on minimal sedation and mild attempts to wake up and intermittently tries to follows commands. She still on high oxygen requirement FiO2 is 60% with a PEEP of 5. I have increased the PEEP to 10. I have started the patient on scheduled IV Solu-Medrol, DuoNeb breathing treatments, cefepime and azithromycin for probable pneumonia. 04/20 Remains intubated, off sedation following commands. Currently FiO2 had been weaned to 40%. Urine output 950 ml since admission. Start SBT, Bumex 1 mg IV x1. 04/21: Tolerating CPAP better today, Appears calm following commands. UO adequate, though creat increasing. Cultures remain negative 04/22: Extubated yesterday required BiPAP overnight. Currently on nasal cannula slightly tachypneic but able to talk in full sentences maintaining oxygen saturation 04/23: Breathing more comfortably today on nasal cannula. Daughter At the bedside. Urine output adequate, creatinine has slightly improved 05/05: Rapid response team was called due to patient's altered mental status and hypoxemia. She was immediately transferred to ICU with a blood gas showing severe hypercarbic acidosis and was immediately intubated. She also became slightly hypotensive requiring a central line placement and initiation of vasopressor therapy Subjective 05/06: Awake and alert but not following commands. Nods head but inappropriately to questions. CAM ICU positive. Sedation is currently been held. Off norepinephrine. Currently nothing by mouth. 05/07: Tmax 100.4 Patient awake following commands. Sedation off a greater than 24-hour. Discussion of CODE STATUS with patient and daughter, patient states she requests to be full code explanation provided in detail. CODE STATUS changed to full code. Sputum cultures pending. Empiric antibiotics initiated Levaquin and cefepime. Patient continues on CPAP trials. The patient lasted 13 hours yesterday on CPAP. Plan for Vas-Cath placement by interventional radiology scheduled for 05/10. 05/08: Patient continues on CPAP trials, alert and responsive, denies pain. Plan for obtaining SBT parameters today a successful will extubate. Sputum culture revealed initial preliminary results of budding yeasts, micafungin added to medication regimen. Patient's scheduled by IR placement of Vas-Cath in a.m.. Patient continues on Reglan and nothing by mouth status per GI, large amounts of diarrhea/loose stools, plan for KUB this afternoon. 05/09: Tmax 99.0. The patient tolerated CPAP trials continuation overnight, approximately 24 hours. SBT performed last evening,WNL. Patient remains awake , alert and interactive. The patient is scheduled for permacath placement via IR this a.m. to be followed by dialysis. Plan for SBT trial postdialysis with a trial of extubation. Throughout the night the patient became tachycardic, with systolic blood pressure greater than 160s. Metoprolol resumed. Patient complained of throat pain early this a.m. relieved with Tylenol. GI following, obtained repeat KUB yesterday we'll await recommendations. Plan to discontinue IV fluids and initiate PPN. 05/10: Afebrile. Patient underwent IHD with 3 L fluid removal yesterday. Plan for permacath placement today. Patient noted to be continued hypertensive, Cardizem home medication resumed. Patient underwent SBT trials postdialysis yesterday with subsequent failure unable to extubate. Plan for repeat SBT parameters today, with anticipation of possible extubation. 05/11: Remains orally intubated on mechanical ventilation. Awaiting EGD today. Objective Vital Signs Date Time Temp Pulse Resp B/P (MAP) Pulse Ox O2 Delivery O2 Flow Rate FiO2 05/11/17 08:20 100 40 05/11/17 08:00 98.9 88 18 148/67 (94) 05/10/17 19:00 Mechanical Ventilator 05/09/17 07:00 6.00 Intake and Output 05/11/17 05/11/17 05/12/17 08:00 16:00 00:00 Output Total 250 ml Balance -250 ml Result Diagram: 05/11/17 0553 05/11/17 0553 Imaging Last Impressions Chest X-Ray 05/08/17 0600 Signed Impressions: Service Date/Time: Monday, May 08, 2017 03:23 - CONCLUSION: 1. Cardiomegaly and findings of vascular congestion without overt failure. There has been no significant change when compared to the prior exam. Brian Mcmanus MD Abdomen X-Ray 05/08/17 0000 Signed Impressions: Service Date/Time: Monday, May 08, 2017 15:33 - CONCLUSION: Persistent mild dilatation of the ascending colon and transverse colon. Findings favor ileus. There are no findings to indicate small bowel obstruction. When correlating with prior CT it is felt unlikely to represent any colonic obstruction. Duncan Avery MD Enema w/Water Soluble 05/02/17 0000 Signed Impressions: Service Date/Time: Tuesday, May 02, 2017 08:02 - CONCLUSION: 1. Limited suboptimal exam. The cecum and right colon could not be opacified despite repeated attempts. 2. Residual stool and mild to moderate diverticulosis. Guevara Crowell MD Abdomen/Pelvis CT 05/02/17 0000 Signed Impressions: Service Date/Time: Tuesday, May 02, 2017 19:58 - CONCLUSION: 1. Nonspecific bowel gas pattern remains with contrast noted in the colon from the recent Gastrografin enema. The cecum remains distended. A rectal catheter is present. 2. No free air or fluid. 3. Small pleural effusions with mild consolidation in the lung bases. 4. Stable small adrenal masses likely representing adenomas. 5. Small nonobstructing left renal calculus. Guevara Crowell MD Catheter Placement X-Ray 05/01/17 0000 Signed Impressions: Service Date/Time: Monday, May 01, 2017 11:45 - CONCLUSION: Uncomplicated line placement as above. Brian Mcmanus MD Renal Ultrasound 04/20/17 0000 Signed Impressions: Service Date/Time: April 15:07 - CONCLUSION: 1. There is no hydronephrosis. 2. Stable 8mm nonobstructing left renal stone. Duncan Avery MD Head CT 04/19/17 0702 Signed Impressions: Service Date/Time: Wednesday, April 19, 2017 07:29 - CONCLUSION: 1. Cerebral white matter hypodensity characteristic of chronic microvascular ischemic disease. 2. No evidence of acute infarct, hemorrhage, mass or edema. Renato Coughlin MD Last Impressions Chest X-Ray 05/06/17 0000 Signed Impressions: Service Date/Time: Saturday, May 06, 2017 03:22 - CONCLUSION: Left IJ central venous catheter courses superiorly in the region of the SVC with the tip in the region of distal right internal jugular vein or right brachiocephalic vein. This could be retracted 5 cm. No evidence of pneumothorax. Hussain Green MD Abdomen X-Ray 05/04/17 0600 Signed Impressions: Service Date/Time: May 06:03 - CONCLUSION: Contrast through to the rectum. Basically stable dilatation of the proximal colon Duncan Delgado MD Enema w/Water Soluble 05/02/17 0000 Signed Impressions: Service Date/Time: Tuesday, May 02, 2017 08:02 - CONCLUSION: 1. Limited suboptimal exam. The cecum and right colon could not be opacified despite repeated attempts. 2. Residual stool and mild to moderate diverticulosis. Guevara Crowell MD Abdomen/Pelvis CT 05/02/17 0000 Signed Impressions: Service Date/Time: Tuesday, May 02, 2017 19:58 - CONCLUSION: 1. Nonspecific bowel gas pattern remains with contrast noted in the colon from the recent Gastrografin enema. The cecum remains distended. A rectal catheter is present. 2. No free air or fluid. 3. Small pleural effusions with mild consolidation in the lung bases. 4. Stable small adrenal masses likely representing adenomas. 5. Small nonobstructing left renal calculus. Guevara Crowell MD Catheter Placement X-Ray 05/01/17 0000 Signed Impressions: Service Date/Time: Monday, May 01, 2017 11:45 - CONCLUSION: Uncomplicated line placement as above. Brian Mcmanus MD Renal Ultrasound 04/20/17 0000 Signed Impressions: Service Date/Time: April 15:07 - CONCLUSION: 1. There is no hydronephrosis. 2. Stable 8mm nonobstructing left renal stone. Duncan Avery MD Head CT 04/19/17 0702 Signed Impressions: Service Date/Time: Wednesday, April 19, 2017 07:29 - CONCLUSION: 1. Cerebral white matter hypodensity characteristic of chronic microvascular ischemic disease. 2. No evidence of acute infarct, hemorrhage, mass or edema. Renato Coughlin MD Objective Remarks GEN: 82-year-old female, currently orotracheally intubated responsive and interactive, in no acute distress Head - normocephalic atraumatic. ENT: Oropharynx without erythema access. Orotracheally intubated. Dressing clean dry and intact previous site of left central line Neck: Right IJ vasc catheter catheter C/D/I and intact without erythema or drainage. Cardiovascular: Sinus tachycardia S1, S2. No S4. Without murmur. Telemetry- ST HR110 Lungs: Diminished breath sounds bilaterally. Mild expiratory inspiratory wheezing Abdomen: Abdomen morbidly obese, soft nontender. No guarding, rebound, or rigidity. Normoactive bowel sounds. [place]ign[place] continuous liquid stool Extremities: 1+ edema/anasarca Neurologic: RASS 0. Pupils are symmetrical 3 mm and reactive to light bilaterally. Patient following commands communicating by nodding of head appropriately. Moves all 4 extremity spontaneously. Procedures 05/10 - IR for permacath Date of Insertion: May 05, 2017 Date of Removal: May 07, 2017 Line: Central Venous Catheter Side: Left Location: Jugular A/P Assessment and Plan NEURO/PSYCH: Acute metabolic encephalopathy-resolved - Propofol for for vent synchrony while intubated,Fentanyl discontinued. Patient currently has propofol on hold continuous CPAP trials denies discomfort - Goal of RASS -2, Currently RASS 0 - Daily sedation vacation - CT of the head negative for acute findings, holding gabapentin - Morphine when necessary pain (held) - Tylenol 650 mg every 6 hours when necessary for pain RESP: Acute hypoxemic respiratory failure Pneumonia COPD with exacerbation Restrictive lung disease - Extubated 04/21. Reintubated 05/05 - PRVC 18/500/// Ventilator bundle -DuoNebs Continues on CPAP trials-15/ FIO2 .40%. 05/07 SBT NIF -30/ FVC 1.04 RSBI 30 with + cuff leak, chest x-ray 05/07 show pulmonary vascular congestion but no overt failure 11/7 SBT parameters failed - RSBI 95 , VT 240 NIF -31 FVC 390 Plan for repeat SBT post dialysis with a trial of extubation (ETT day 6)- discussion with family regarding possibility of tracheostomy 05/07 sputum culture- budding yeast, Micafungin (day 4) CV: Chronic A. fib Transient hypotension Hypertension -Goal to maintain MAP greater than equal to 65 - Rate controlled atrial fibrillation- HR > 100, SBP 160's. Metoprolol reinitiated 50 mg twice a day. Lisinopril patient's home med has been discontinued in the setting of CKD. Cardizem currently on hold -Holding Apixaban currently. Continue subcutaneous heparin - Anticoagulation hold for anemia.. Resume when clinically indicated -Restarted diltiazem 360mg/d , metoprolol 100 mg twice a day. 05/07- digoxin level 1.3 . Hold for now, janell in the setting of ARF. Last documented level 1.8 - normal saline at 42 cc /hr discontinued, PPN initiated last evening 42cc/hr - On atorvastatin 20 mg daily for dyslipidemia. GI: Colonic ileus Gastrografin enema 05/02. Proximal colonic dilatation. Patient is having bowel movements. No abdominal pain Famotidine for GI prophylaxis On metoclopramide 5 mg IV every 8 hours for colonic ileus per GI. Follow-up with GI for further recommendations - EGD planned for 05/11 05/08 repeat KUB-mildly dilated ascending and transverse colon. Distention unchanged, but transverse colon distally more dilated 05/09 Begin PPN : Acute on chronic kidney disease Secondary hyperparathyroidism - Nephrology -Dr. Grewal - Monitor renal function closely. Nelson catheter. UOP last 24 hours- 580cc, IHD 05/09 3 L removed - Hemodialysis per nephrology. Currently on Monday/ and Monday - IR for permacath 05/10, obtained postdialysis labs - Continue Calciferol 0.25 mcg daily for secondary hyperparathyroidism ID: Severe sepsis resolved Pneumonia - Blood sputum and urine culture, all negative to date - Empiric cefepime and azithromycin for 7-10 days course completed - Sputum culture 05/07 budding yeast-micafungin day 2 HEME: Leukocytosis Normocytic anemia - Monitor CBC, CMP, INR -Holding apixaban ENDO: Hypothyroidism Type 2 diabetes - Continue levothyroxine at 125 g daily, sliding-scale insulin - SSI with every 6 hours Accu-Cheks on novolog to maintain euglycemia. Holding insulin detemir 10 units twice a day while nothing by mouth MSK: OA/OP Continue cholecalciferol 400 units twice a day PT evaluate and treat PT requested functional maintenance daily PROPH: - Bilateral lower extremity SCDs, heparin subcutaneous LINES: -Left IJ central line placed 05/05-05/07. right IJ-brachiocephalic Critical Care: The total critical care time was 30 minutes. Time to perform other separately billable procedures was not included in the critical care time. 05/07: Discussed with Vitaliy Sales and daughter. Full CODE STATUS. All family members acknowledge understanding and present in room during discussion. CODE STATUS will be changed. Palliative care consulted as well for goals of care. 05/08: Palliative of care meeting, patient instituted daughter as primary POA. Andrew Dias MD May 11, 2017 10:58
--- NOTE | 2017-05-11 11:04 | HHI.HCPN ---
Reason for visit a. To assist with evaluation and management of symptoms including: Debility , pain, dyspnea b. To assist medical decision maker(s) with: better understanding of current medical conditions; weighing benefits/burdens of medical treatment options; making medical treatment decisions. . Subjective/Interval History Ms. Sales was seen and assessed in room 1336. She is nothing by mouth after midnight to undergo EGD later today to evaluate for bleeding. She failed vent weaning trials again yesterday. She remains on a ventilator rate today pending EGD. She is awake and alert, nodding appropriately, son-in-law at bedside. Follow up CXR this morning showed no change from prior day which showed improving pulmonary edema and improving left basilar atelectasis vs. pneumonia. She is status post right IJ hemodialysis tunneled catheter placement then underwent hemodialysis 05/10 with removal of 3 L. KUB on 05/08/17 showed persistent mild dilatation of the ascending colon and transverse colon. Repeat study done 05/11 remains consistent with possible ileus , without indication for small bowel obstruction. Patient had 975 mL of stool out overnight after soapsuds enema. . Family/friend interactions Spoke with son-in-law regarding plan of care and upcoming procedures, patient able to be interactive with discussion. All questions answered. Contact information provided for any further questions or concerns. . Advance Directives Living Will: Never completed Health Care Surrogate: Copy in medical record Durable Power of Manager Motor: Never completed Advance Directive Specifics Date completed: 05/08/2017 . Health Care Surrogate(s): Health care surrogate form completed 05/08/2017 designating the patient's daughter (Shilpa) as the healthcare surrogate decision maker. The patient's son (Jason) is the alternate health care surrogate decision maker. Documented care wishes: Healthcare surrogate form was completed 05/08/2017. No other documented care wishes have been completed. Plan to discuss written advanced directives/living will after the patient has been extubated in the upcoming days. . Objective Vital Signs Date Time Temp Pulse Resp B/P (MAP) Pulse Ox O2 Delivery O2 Flow Rate FiO2 05/11/17 08:20 100 40 05/11/17 08:00 98.9 88 18 148/67 (94) 100 05/11/17 08:00 88 05/11/17 08:00 40 05/11/17 06:00 102 05/11/17 04:16 100 40 05/11/17 04:00 74 05/11/17 04:00 98.0 74 18 147/69 (95) 100 05/11/17 04:00 40 05/11/17 02:00 106 05/11/17 01:10 100 40 05/11/17 00:00 40 05/11/17 00:00 98.0 106 18 169/87 (114) 100 05/11/17 00:00 106 05/10/17 22:00 108 05/10/17 20:00 40 05/10/17 20:00 97.8 106 18 145/68 (93) 100 05/10/17 20:00 106 05/10/17 19:49 100 40 05/10/17 19:00 100 Mechanical Ventilator 40 05/10/17 18:26 40 05/10/17 17:40 40 05/10/17 16:43 100 40 05/10/17 16:00 98.0 107 18 173/81 (111) 100 05/10/17 16:00 107 05/10/17 14:00 40 05/10/17 13:00 100 100 05/10/17 12:00 85 05/10/17 12:00 98.1 85 18 160/59 (92) 100 05/10/17 11:40 100 40 05/10/17 11:40 40 Intake & Output 05/11/17 05/11/17 07:00 19:00 Output Total 250 ml Balance -250 ml Output Urine Total 175 ml Stool Total 75 ml Physical Exam CONSTITUTIONAL/GENERAL: This is an elderly female who remains orotracheally intubated, alert and interactive. TUBES/LINES/DRAINS: OGT, ETT, Nelson catheter, digni-shield, soft restraints, Vas -Cath, PIV 2 SKIN: Skin temperature appropriate. Not diaphoretic. HEAD: Atraumatic. Normocephalic. EYES: Pupils equal and round and reactive. Extraocular motions intact. No scleral icterus. No injection or drainage. Fundi not examined. ENT: Hearing grossly normal. Nose without bleeding or purulent drainage. NECK: Orally intubated CARDIOVASCULAR: Sinus rhythm without murmur. No Gallops, or rubs. No JVD. Peripheral pulses symmetric. RESPIRATORY/CHEST: Mechanically ventilated, coarse rhonchi throughout all anterior lung morton, diminished bases. GASTROINTESTINAL: Abdomen soft, non-tender, nondistended. Bowel sounds present. GENITOURINARY: Without palpable bladder distension. Nelson catheter in place. MUSCULOSKELETAL: Extremities without clubbing or cyanosis. 1-2+ upper extremity edema. NEUROLOGICAL: Awake and interactive off sedation. Generalized weakness PSYCHIATRIC: No obvious anxiety/depression. no apparent hallucinations or other psychotic thought process. . Diagnostic Tests Laboratory Laboratory Tests Test 05/10/17 05:08 05/11/17 05:53 White Blood Count 14.6 TH/MM3 (4.0-11.0) 8.3 TH/MM3 (4.0-11.0) Red Blood Count 3.42 MIL/MM3 (4.00-5.30) 2.89 MIL/MM3 (4.00-5.30) Hemoglobin 10.4 GM/DL (11.6-15.3) 8.9 GM/DL (11.6-15.3) Hematocrit 32.7 % (35.0-46.0) 26.8 % (35.0-46.0) Mean Corpuscular Volume 95.7 FL (80.0-100.0) 92.7 FL (80.0-100.0) Mean Corpuscular Hemoglobin 30.5 PG (27.0-34.0) 30.9 PG (27.0-34.0) Mean Corpuscular Hemoglobin Concent 31.9 % (32.0-36.0) 33.3 % (32.0-36.0) Red Cell Distribution Width 17.4 % (11.6-17.2) 17.8 % (11.6-17.2) Platelet Count 85 TH/MM3 (150-450) 99 TH/MM3 (150-450) Mean Platelet Volume 8.7 FL (7.0-11.0) 9.3 FL (7.0-11.0) Neutrophils (%) (Auto) 89.1 % (16.0-70.0) Lymphocytes (%) (Auto) 5.2 % (9.0-44.0) Monocytes (%) (Auto) 4.7 % (0.0-8.0) Eosinophils (%) (Auto) 0.6 % (0.0-4.0) Basophils (%) (Auto) 0.4 % (0.0-2.0) Neutrophils # (Auto) 13.0 TH/MM3 (1.8-7.7) Lymphocytes # (Auto) 0.8 TH/MM3 (1.0-4.8) Monocytes # (Auto) 0.7 TH/MM3 (0-0.9) Eosinophils # (Auto) 0.1 TH/MM3 (0-0.4) Basophils # (Auto) 0.1 TH/MM3 (0-0.2) CBC Comment AUTO DIFF Differential Total Cells Counted 100 Neutrophils % (Manual) 92 % (16-70) Lymphocytes % 3 % (9-44) Monocytes % 4 % (0-8) Neutrophils # (Manual) 13.6 TH/MM3 (1.8-7.7) Myelocytes 1 % (0-0) Nucleated Red Blood Cells 1 /100 WBC (0-0) Differential Comment FINAL DIFF MANUAL Platelet Estimate LOW (NORMAL) Platelet Morphology Comment NORMAL (NORMAL) Prothrombin Time 11.8 SEC (9.8-11.6) Prothromb Time International Ratio 1.1 RATIO Blood Urea Nitrogen 32 MG/DL (7-18) 40 MG/DL (7-18) Creatinine 3.92 MG/DL (0.50-1.00) 4.56 MG/DL (0.50-1.00) Random Glucose 140 MG/DL (74-106) 113 MG/DL (74-106) Total Protein 7.0 GM/DL (6.4-8.2) Albumin 2.4 GM/DL (3.4-5.0) Calcium Level 8.4 MG/DL (8.5-10.1) 8.4 MG/DL (8.5-10.1) Phosphorus Level 2.8 MG/DL (2.5-4.9) 1.5 MG/DL (2.5-4.9) Magnesium Level 2.0 MG/DL (1.5-2.5) 1.9 MG/DL (1.5-2.5) Alkaline Phosphatase 88 U/L (45-117) Aspartate Amino Transf (AST/SGOT) 36 U/L (15-37) Alanine Aminotransferase (ALT/SGPT) 36 U/L (10-53) Total Bilirubin 0.7 MG/DL (0.2-1.0) Sodium Level 137 MEQ/L (136-145) 135 MEQ/L (136-145) Potassium Level 3.7 MEQ/L (3.5-5.1) 3.6 MEQ/L (3.5-5.1) Chloride Level 100 MEQ/L (98-107) 100 MEQ/L (98-107) Carbon Dioxide Level 24.9 MEQ/L (21.0-32.0) 24.3 MEQ/L (21.0-32.0) Anion Gap 12 MEQ/L (5-15) 11 MEQ/L (5-15) Estimat Glomerular Filtration Rate 13 ML/MIN (>89) 11 ML/MIN (>89) Result Diagram: 05/11/17 0553 05/11/17 0553 Microbiology Microbiology Date/Time Source Procedure Growth Status 04/19/17 16:54 Blood Peripheral Aerobic Blood Culture - Final NO GROWTH IN 5 DAYS Complete 04/19/17 16:54 Blood Peripheral Anaerobic Blood Culture - Final NO GROWTH IN 5 DAYS Complete 05/06/17 09:30 Stool Stool Stool Occult Blood (LAYLA) - Final HEMOCCULT POSITIVE Complete 05/07/17 16:24 Sputum Endotracheal Gram Stain - Final Complete 05/07/17 16:24 Sputum Endotracheal Sputum Culture - Final MODERATE GROWTH NORMAL RESPIRATORY GORDON Complete 04/19/17 06:15 Urine Clean Catch Urine Culture - Final NO GROWTH Complete Imaging Last Impressions Chest X-Ray 05/11/17 06 Signed Impressions: Service Date/Time: May 05:49 - CONCLUSION: 1. Cardiomegaly and findings of vascular congestion without overt failure. There has been no significant change when compared to the prior exam. Brian Mcmanus MD Abdomen X-Ray 05/11/17 06 Signed Impressions: Service Date/Time: May 05:52 - CONCLUSION: 1. Continued colonic ileus. There has been no significant change when compared to the prior exam. Brian Mcmanus MD Catheter Placement X-Ray 05/10/17 0730 Signed Impressions: Service Date/Time: Wednesday, May 10, 2017 13:32 - CONCLUSION: Uncomplicated exchange of Vas-Cath for hemodialysis permacath with fluoroscopic guidance as above. The catheter can be used immediately. Duncan Delgado MD Enema w/Water Soluble 05/02/17 0000 Signed Impressions: Service Date/Time: Tuesday, May 02, 2017 08:02 - CONCLUSION: 1. Limited suboptimal exam. The cecum and right colon could not be opacified despite repeated attempts. 2. Residual stool and mild to moderate diverticulosis. Guevara Crowell MD Abdomen/Pelvis CT 05/02/17 0000 Signed Impressions: Service Date/Time: Tuesday, May 02, 2017 19:58 - CONCLUSION: 1. Nonspecific bowel gas pattern remains with contrast noted in the colon from the recent Gastrografin enema. The cecum remains distended. A rectal catheter is present. 2. No free air or fluid. 3. Small pleural effusions with mild consolidation in the lung bases. 4. Stable small adrenal masses likely representing adenomas. 5. Small nonobstructing left renal calculus. Guevara Crowell MD Renal Ultrasound 04/20/17 0000 Signed Impressions: Service Date/Time: April 15:07 - CONCLUSION: 1. There is no hydronephrosis. 2. Stable 8mm nonobstructing left renal stone. Duncan Avery MD Head CT 04/19/17 0702 Signed Impressions: Service Date/Time: Wednesday, April 19, 2017 07:29 - CONCLUSION: 1. Cerebral white matter hypodensity characteristic of chronic microvascular ischemic disease. 2. No evidence of acute infarct, hemorrhage, mass or edema. Renato Coughlin MD Procedures 04/19/17: Intubation 04/19/17: OGT placement 04/21/17: Extubation 05/01/17: NGT placed. 05/05/17: Reintubation; Left IJ central line placement 05/10/2017: PermCath placement Assessment and Plan Disease Oriented Problem List: (1) Hypothyroidism (2) Hyperlipidemia (3) Diabetes (4) Pneumonia (5) Atrial fibrillation (6) Acute on chronic kidney failure (7) COPD with acute exacerbation (8) Acute metabolic encephalopathy (9) Peripheral neuropathy (10) History of small bowel obstruction (11) History of thyroid cancer Symptom Scale: (1) Debility 0-10 Scale: Unable to quantify (bedbound status, restrained.) (2) Dyspnea 0-10 Scale: Unable to quantify (failing vent trials. Third intubation this admission.) (3) Pain 0-10 Scale: Unable to quantify (generalized discomfort, invasive lines, restraints, bedbound.) Pertinent Non-Medical Issues Psychosocial: Patient is originally from [place]. She had 3 children. Daughter (Shilpa) lives in [place], [place] and son (Jason) lives in [place], [place]. Patient had another daughter who from breast cancer. Patient was remarried after her ; she is currently to her second (Vitaliy). 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 She has 25 grandchildren/great- grandchildren. Spiritual: [employer] messi Legal:Health care surrogate form completed 05/08/2017 designating the patient's daughter (Shilpa) as the healthcare surrogate decision maker. The patient's son (Jason) is the alternate health care surrogate decision maker. Ethical issues impacting care: No known ethical issues impacting care at this time. . Important Contacts Vitaliy Sales, spouse: [phone] or [phone] (cell) Shilpa Gonzales, daughter/[facility] [place]: [phone] Jason Sales son/alternate [facility] [place]: [phone] . Prognosis Patient is an 82-year-old female who has been admitted 3 times in 2017 for management of respiratory failure/pneumonia. She has required intubation/ mechanical ventilation x 2 since her admission on 04/19/2017. Given patient's complex medical history with recurrent hospitalizations, advanced age and recent decline in functional status, she is high risk for ongoing setbacks and complications. . Code Status: Full Code Plan PLAN: Legal decision maker: Her daughter, Shilpa, has been designated as the healthcare surrogate and her son, Jason, is the alternate healthcare surrogate. Goals: Remain aggressive CODE STATUS: FULL CODE. SYMPTOMS: * Dyspnea: She has failed vent weaning again yesterday. She is pending EGD today and when stable status post procedure will likely continue vent weaning trials. Patient is motivated to cooperate with trials. She is awake on the mechanical ventilator, alert and active. She was intubated 04/19/17 on admission, extubated 04/21 and required reintubation 05/06/17. Likely multifactorial related to her COPD, obesity and infection. Chest x-ray stable showing improved pulmonary edema and vascular congestion. * Pain: She denies pain at this time and is receiving no pain medication. Likely sources of pain would be bedbound status, invasive lines, intubation, restraints. * Debility: Previously independent with all ADLs, residing at home her . She used a cane or walker for ambulation. She will likely require rehabilitation if she can be successfully extubated. She has been accepted at [facility] and rehabilitation, as well as [facility] for dialysis. She is Hemoccult positive and has required transfusion of 2 units for anemia which is likely contributing to her debility, weakness and fatigue. EGD today. Palliative care will continue to follow the patient during hospital course as condition evolves, to assist patient/decision-maker with understanding of their medical conditions, weighing benefits/burdens of treatment options, for clarification of goals of treatment. Additionally will assist with any symptoms of palliative concern. . . Attestation To help prompt me to consider important information that might be impacting today's encounter and assessment, information from prior notes written by myself or my colleagues may have been "brought forward" into today's note. My signature on this note, however, is an attestation that I personally performed the exam, history, and/or decision-making noted today, and, unless otherwise indicated, the interactions with patient, family, and staff as well as the review of records all occurred today. I also attest that the listed assessment and stated plan reflect my best clinical judgment today based on the combination of historical information, prior notes, and today's exam/ interactions. When time spent is documented, it refers only to time spent today by the signer, or if indicated, combined time spent today by collaborating physician/nurse practitioner. . Jodee Bloom May 11, 2017 11:04
--- NOTE | 2017-05-11 11:27 | GIPROC ---
[facility] [address] [facility]. [facility], [address] EGD PROCEDURE REPORT EXAM DATE: 05/11/2017 PATIENT NAME: Feli Sales MR #: [id number] BIRTHDATE: 1935 ATTENDING: Benton Hernández MD ORDER #: [id number] POLICE DETENTION ATTENDANT: Jada Hubbard and Perla Arredondo STATUS: inpatient INDICATIONS: The patient is a 82 yr old female here for an EGD due to abdominal pain and vomiting PROCEDURE PERFORMED: EGD, diagnostic MEDICATIONS: Per Anesthesia and None. TOPICAL ANESTHETIC: none CONSENT: The patient understands the risks and benefits of the procedure and understands that these risks include, but are not limited to: sedation, allergic reaction, infection, perforation and/or bleeding. Alternative means of evaluation and treatment include, among others: physical exam, x-rays, and/or surgical intervention. The patient elects to proceed with this endoscopic procedure. medical equipment was checked for proper function. Hand hygiene and appropriate measures for infection prevention was taken. After the risks, benefits and alternatives of the procedure were thoroughly explained, Informed consent was verified, confirmed and timeout was successfully executed by the treatment team. The patient was anesthetized with topical anesthesia and the Pentax [id number] endoscope was introduced through the mouth and advanced to the second portion of the duodenum. Retroflexion was performed and was normal The gastroscope was then slowly withdrawn and removed. ESOPHAGUS: The esophagus was otherwise normal. STOMACH: The stomach otherwise appeared normal. DUODENUM: The duodenal mucosa appeared normal in the bulb and second portion of the duodenum. ADVERSE EVENTS: There were no complications. IMPRESSIONS: 1. The esophagus was otherwise normal 2. The stomach otherwise appeared normal 3. Normal duodenal mucosa in the bulb and second portion of the duodenum 4. Retroflexion was performed and was normal RECOMMENDATIONS: No treatment PATIENT CONDITION: stable DISPOSITION: Observation REPEAT EXAM: NONE Benton Hernández MD eSigned: Benton Hernández MD 05/11/2017 11:26 AM cc:
[2017-05-11] MEDS ORDERED: POTASSIUM PHOSPHATE INJ 15 MMOL in SODIUM CHLORIDE 0.9% INJ 150 ML IV ONE (12:00)
[2017-05-11] MEDS ORDERED: PROPOFOL 200 MG/20 ML AMP IV ONE (12:00)
[2017-05-11] MEDS: HEPARIN SODIUM - IV 10,000 UNITS/10 ML VIAL PRN (15:20)
[2017-05-11] MEDS: EPOETIN ALFA 10,000 UNITS/ML VIAL IV PUSH PRN (15:21)
[2017-05-11] MEDS: GENTAMICIN SULFATE (DIALYSIS USE ONLY) 20 MG/2 ML VIAL OTHER PRN (15:21)
[2017-05-11] MEDS: SODIUM CHLOR 0.9% 1000 ML INJ 1,000 ML OTHER PRN (15:21)
[2017-05-11] MEDS: MICAFUNGIN INJ 100 MG in SODIUM CHLORIDE 0.9% INJ 100 ML IV SCH (15:47)
[2017-05-11] MEDS ORDERED: PHENOL 1.4% SOLN 180 ML BTL OROPHARYNG PRN (16:00)
--- NOTE | 2017-05-11 16:31 | HHI.HCPN ---
Patient continues to decline, requiring increased oxygen today with some progressive dyspnea. Spoke with Eloy, the guardian 05/08 regarding the judges decision on making patient's CODE STATUS is DNR and at that time we were pending review of the records by the industrial refrigeration mechanic. Left messages for her again 05/09 and 05/11 follow-up on the decision. Pending return call. Jodee Bloom May 11, 2017 4:31 pm
[2017-05-11] MEDS: RESP: ALBUTEROL 2.5 MG/3 ML NEB (PRN) NEB (16:34)
[2017-05-11] MEDS ORDERED: ASPIRIN 81 MG CHEW TAB CHEW ONE (18:00)
[2017-05-11] MEDS ORDERED: SODIUM CHLORID 0.9% 500 ML INJ 500 ML IV ONE (18:00)
[2017-05-11 19:49] LABS: MEAN CELL VOLUME 93.5 FL (80.0-100.0); MEAN CORPUSCULAR HEMOGLOBIN 30.7 PG (27.0-34.0); MEAN CORPUSCULAR HGB CONC 32.8 % (32.0-36.0); PLATELET COUNT 95 TH/MM3 (150-450); RED BLOOD COUNT 2.14 MIL/MM3 (4.00-5.30); RED CELL DISTRIBUTION WIDTH 17.3 % (11.6-17.2); WHITE BLOOD COUNT 14.8 TH/MM3 (4.0-11.0)
[2017-05-11 19:52] LABS: REVIEW FLAG FINAL
[2017-05-11] MEDS ORDERED: SODIUM CHLOR 0.9% 250 ML INJ 250 ML IV ONE (20:00)
[2017-05-11 20:13] LABS: CREATINE KINASE 104 U/L (26-192)
[2017-05-11] MEDS: RESP: ALBUTEROL 2.5 MG/IPRATROPIUM 0.5 MG NEB (SCH) NEB (20:16)
[2017-05-11 21:15] LABS: CKMB 3.9 NG/ML (0.5-3.6)
[2017-05-11] MEDS: ATORVASTATIN 20 MG TAB PO SCH (21:36)
[2017-05-11] MEDS: FAT EMULSION 20% INJ 250 ML (@10 mls/hr) IV SCH (21:37)
[2017-05-11] MEDS: SODIUM CHLORIDE 23.4% INJ 5.5 MEQ, SODIUM ACETATE INJ 29.5 MEQ, POTASSIUM CHLORIDE INJ ... IV SCH ×7 (21:38)
[2017-05-11] MEDS: diphenhydrAMINE HCL 25 MG CAP PO PRN (21:50)
[2017-05-12] VITALS (22 sets, daily range): BP systolic 114–150; BP diastolic 5–72; PULSE 94–138; RESP 12–24; TEMP 97.9–99.6; O2SAT 98–100
[2017-05-12] MEDS: INSULIN DETEMIR 100 UNITS/ML VIAL SQ SCH ×2 (01:07→09:00)
[2017-05-12] MEDS: RESP: ALBUTEROL 2.5 MG/IPRATROPIUM 0.5 MG NEB (SCH) NEB ×4 (01:27→20:02)
[2017-05-12] MEDS: INSULIN ASPART SUPPLEMENTAL SCALE SQ SCH ×3 (06:00→12:00)
[2017-05-12 07:30] LABS: AUTOMATED NEUTROPHIL # 8.6 TH/MM3 (1.8-7.7); BASOPHIL # 0.1 TH/MM3 (0-0.2); BASOPHIL % 0.5 % (0.0-2.0); EOSINOPHIL # 0.1 TH/MM3 (0-0.4); EOSINOPHIL % 0.7 % (0.0-4.0); HEMATOCRIT 24.5 % (35.0-46.0); LYMPH % 5.5 % (9.0-44.0); LYMPHOCYTE # 0.6 TH/MM3 (1.0-4.8); MEAN CELL VOLUME 90.2 FL (80.0-100.0); MEAN CORPUSCULAR HEMOGLOBIN 30.1 PG (27.0-34.0); MEAN CORPUSCULAR HGB CONC 33.4 % (32.0-36.0); MONO % 17.7 % (0.0-8.0); NEUT % 75.6 % (16.0-70.0); PLATELET COUNT 92 TH/MM3 (150-450); RED BLOOD COUNT 2.71 MIL/MM3 (4.00-5.30); RED CELL DISTRIBUTION WIDTH 15.2 % (11.6-17.2); WHITE BLOOD COUNT 11.4 TH/MM3 (4.0-11.0)
[2017-05-12 07:31] LABS: HEMO FLAGS AUTO DIFF
[2017-05-12 07:47] LABS: CREATINE KINASE 122 U/L (26-192)
[2017-05-12] MEDS: CHLORHEXIDINE 0.12% (ORAL KIT) 15 ML CUP MT SCH ×2 (08:00→20:00)
[2017-05-12 08:03] LABS: CKMB 4.3 NG/ML (0.5-3.6)
[2017-05-12 08:45] LABS: SCAN/DIFF AUTO DIFF CONFIRMED
[2017-05-12] MEDS: METOPROLOL TARTRATE 50 MG TAB PO SCH ×2 (09:00→20:02)
[2017-05-12] MEDS: LANSOPRAZOLE SOLUTAB 30 MG TAB NG SCH (09:00)
[2017-05-12] MEDS: MULTIVITAMINS/MINERALS THERAPEUTIC TAB PO SCH ×2 (09:00→20:02)
[2017-05-12] MEDS: CALCITRIOL 0.25 MCG CAP PO SCH (09:00)
[2017-05-12] MEDS: SODIUM CHLORIDE 0.9% FLUSH 10 ML FLUSH IV FLUSH SCH ×2 (09:00→20:05)
[2017-05-12] MEDS: LACTOBACILLUS ACIDOPHILUS TAB PO SCH ×3 (09:00→18:00)
[2017-05-12] MEDS: CEFEPIME 1000 MG/NS 100 ML IV SCH ×2 (09:00)
[2017-05-12] MEDS: CHOLECALCIFEROL (VIT D3) 400 UNIT TAB PO SCH ×2 (09:00→20:05)
[2017-05-12] MEDS: METOPROLOL TARTRATE 5 MG/5 ML VIAL IV PUSH PRN (10:16)
--- NOTE | 2017-05-12 10:39 | PD.CONS ---
HPI Consult Requested By Primary Care Physician Unknown History of Present Illness 82 year old who is currently hospitalized with abdominal pain complicated with acute hypoxemic respiratory failure, acute metabolic encephalopathy, pneumonia, COPD exacerbation, anemia, acute on chronic renal failure, ileus. Past medical history significant for morbid obesity diabetes, hypertension, chronic kidney failure, chronic atrial fibrillation, hypothyroidism. Consulted for evaluation of chest pain, atrial fibrillation and EKG changes. She is a patient Dr. Villalpando. Troponin elevated and EKG shows afib with RVR. She reports chest pain. Review of Systems Consitutional: DENIES: Fatigue, Fever, Chills, Weight gain, Weight loss HEENT: DENIES: Lightheadedness, Change in hearing Cardiovascular: COMPLAINS OF: See HPI, Chest pain Genitourinary: DENIES: Urinary incontinence, Difficulty voiding Integumentary: DENIES: Rash Neurologic: DENIES: Tingling or numbness, Memory problems, Poor Balance, Stroke symptoms Musculoskeletal: DENIES: Joint pain, Muscle pain, Limited range of motion, Back pain Psychiatric: DENIES: Anxiety, Depression, Sleep disturbances Hematologic: DENIES: Bruising tendencies, Bleeding tendencies Endocrine: DENIES: Weight gain, Weight loss, Thyroid disease Past Family Social History Allergies: Coded Allergies: celecoxib (Unverified Allergy, Severe, SYNCOPE, 04/16/17) Past Medical History Hypertension Atrial fibrillation Type 2 DM Hypothyroidism Hyperlipidemia Peripheral neuropathy Small bowel obstruction COPD Hx thyroid cancer Past Surgical History Total thyroidectomy in 2010 secondary to thyroid cancer Partial small bowel resection with lysis of adhesions Cholecystectomy Reported Medications Reported Meds & Active Scripts Active Proair Hfa 8.5 GM Inh (Albuterol Sulfate) 90 Mcg/Act Aer 2 Puff INH Q4-6H PRN 108 mcg/actuation Oxygen tank (Oxygen) 1 Ea Tank 2 Liter IGLESIA.CANULA CONTINUOUS Oxygen Concentrator Portable Gaseous 2 L/min via Nasal Cannula Continuous For 99 months Reported Metoprolol Tartrate 50 Mg Tab 50 Mg PO BID Lantus Solostar Pen Inj (Insulin Glargine) 300 Unit/3 Ml Pen 22 Units SQ HS Vitamin D (Cholecalciferol) 400 Unit Cap 400 Units PO BID Multivitamin Gummies Adul (Multiple Vitamins W/ Minerals) 1 Chw Chw 1 Chew PO BID Eliquis (Apixaban) 2.5 Mg Tab 2.5 Mg PO BID Calcitriol 0.25 Mcg Cap 0.25 Mcg PO DAILY Omeprazole 20 Mg Tab 20 Mg PO BID Gabapentin 100 Mg Cap 100 Mg PO BID Lisinopril 40 Mg Tab 40 Mg PO DAILY Atorvastatin (Atorvastatin Calcium) 20 Mg Tab 20 Mg PO HS Levothyroxine (Levothyroxine Sodium) 125 Mcg Tab 125 Mcg PO DAILY Diltiazem ER 24 HR 300 Mg Lexy 300 Mg PO DAILY Active Ordered Medications Current Medications Medications (Trade) Dose Ordered Sig/Sloane Route Start Time Stop Time Status Last Admin (NS Flush) 2 ml UNSCH PRN IV FLUSH 04/19/17 08:30 05/05/17 05:01 (NS Flush) 2 ml BID IV FLUSH 04/19/17 09:00 05/11/17 21:38 Miscellaneous Information 1 Q361D XX 04/19/17 08:30 (Chlorhexidine 2% Cloth) 3 pack Taper DAILY@04 TOP 04/20/17 04:00 04/16/18 03:59 04/26/17 04:00 (Chlorhexidine 2% Cloth) 3 pack UNSCH PRN TOP 04/19/17 08:30 (Eliquis) 2.5 mg BID PO 04/19/17 21:00 Future Hold 05/05/17 09:44 (Lipitor) 20 mg HS PO 04/19/17 21:00 05/11/17 21:36 (Rocaltrol) 0.25 mcg DAILY PO 04/20/17 09:00 05/11/17 08:34 (Synthroid) 125 mcg DAILY@0600 PO 04/20/17 06:00 05/11/17 06:06 (Vitamin D3) 400 units BID PO 04/19/17 21:00 05/11/17 21:39 (Apresoline Inj) 20 mg Q4H PRN IV PUSH 04/21/17 11:30 05/10/17 16:05 (Lopressor Inj) 5 mg Q5M PRN IV PUSH 04/24/17 02:15 05/12/17 10:16 (Theragran M Tab) 1 tab BID PO 04/24/17 10:00 05/11/17 21:38 (Protonix) 20 mg BID PO 04/24/17 09:00 Future Hold 05/05/17 21:48 (Cardizem Cd) 360 mg DAILY PO 04/25/17 09:00 Future hold 05/05/17 09:44 (Lanoxin) 0.125 mg DAILY PO 04/27/17 09:00 Future Hold 05/05/17 09:44 (Pill Splitter) 1 ea UNSCH PRN OTHER 04/30/17 11:00 Sodium Chloride 1,000 ml @ 0 mls/hr Q0M PRN OTHER 04/30/17 13:26 05/11/17 15:21 (Heparin Inj) 8,000 units UNSCH PRN IV FLUSH 04/30/17 13:30 Sodium Chloride 1,000 ml @ 200 mls/hr Q5H PRN IV 04/30/17 13:26 Sodium Chloride 1,000 ml @ 0 mls/hr Q0M PRN OTHER 04/30/17 13:26 (Mannitol Inj) 12.5 gm UNSCH PRN IV 04/30/17 13:30 Albumin Human 100 ml @ 60 mls/hr UNSCH PRN IV 04/30/17 13:30 05/06/17 09:48 (NS Flush) 5 ml UNSCH PRN IV FLUSH 04/30/17 13:30 (Heparin Inj) UNSCH PRN .XX 04/30/17 13:30 05/11/17 15:20 (Gentamicin (Dialysis) Inj) 20 mg UNSCH PRN OTHER 04/30/17 13:30 05/11/17 15:21 (Zofran Inj) 4 mg UNSCH PRN IV PUSH 04/30/17 13:30 (Tylenol) 650 mg UNSCH PRN PO 04/30/17 13:30 05/09/17 06:50 (Benadryl) 25 mg UNSCH PRN PO 04/30/17 13:30 05/11/17 21:50 (Nitrostat Sl) 0.4 mg UNSCH PRN SL 04/30/17 13:30 (Catapres) 0.1 mg UNSCH PRN PO 04/30/17 13:30 (Epogen Inj) 10,000 units UNSCH PRN IV PUSH 04/30/17 13:30 05/11/17 15:21 (Gelfoam 12 Mm/7 Mm Top) 1 foam UNSCH PRN TOP 04/30/17 13:30 (Levemir Inj) 10 units Q12HR SQ 05/01/17 21:00 05/12/17 01:07 (NS Flush) UNSCH PRN IV FLUSH 05/01/17 12:15 (Heparin Inj) UNSCH PRN IV FLUSH 05/01/17 12:15 (Morphine Inj) 0.5 mg Q4H PRN IV 05/02/17 10:00 Future Hold (Lactinex) 1 tab TID PO 05/03/17 18:00 05/11/17 18:00 (Heparin Inj) 5,000 units Q8HR SQ 05/05/17 14:00 05/11/17 14:00 (Atropine Inj) 1 mg Q15M PRN IV PUSH 05/06/17 06:15 (Peridex 0.12% Liq) 15 ml BID@08,20 MT 05/06/17 20:00 05/11/17 21:37 Propofol 100 ml @ 3.57 mls/hr TITRATE PRN IV 05/06/17 09:15 (NovoLOG SUPPLEMENTAL SCALE) 1 Q6HR SQ 05/06/17 12:00 05/11/17 18:00 (Prevacid Odt) 30 mg DAILY NG 05/06/17 09:15 05/11/17 08:34 (Albuterol Neb) 2.5 mg Q2HR NEB PRN NEB 05/06/17 09:15 05/11/17 16:34 (Tears Naturale Opth Soln) 1 drop Q8HR EACH EYE 05/06/17 14:00 05/11/17 21:39 Levofloxacin/ Dextrose 50 ml @ 50 mls/hr Q48H IV 05/08/17 17:00 05/10/17 17:00 Cefepime HCl 1000 mg/Sodium Chloride 100 ml @ 200 mls/hr Q24H IV 05/09/17 09:00 05/11/17 08:34 Micafungin Sodium 100 mg/Sodium Chloride 100 ml @ 100 mls/hr Q24H IV 05/08/17 15:00 05/11/17 15:47 (Lopressor) 50 mg BID PO 05/09/17 09:00 05/11/17 08:34 Fat Emulsion Intravenous 250 ml @ 10 mls/hr Q24H IV 05/09/17 20:00 05/11/17 21:37 Vancomycin HCl 1000 mg/Sodium Chloride 250 ml @ 250 mls/hr ACCT EXEC IV 05/10/17 11:00 05/14/17 10:59 05/10/17 12:03 (NS Flush) UNSCH PRN IV FLUSH 05/10/17 14:30 (Heparin Inj) UNSCH PRN IV FLUSH 05/10/17 14:30 Sodium Chloride 5.5 meq/Sodium Acetate 29.5 meq/ Potassium Chloride 20 meq/ Magnesium Chloride 5 meq/ Calcium Chloride 4.5 meq/ Multivitamins 10 ml/Amino Acids/ Dextrose 1,041.9719 ml @ 42 mls/hr Q24H IV 05/11/17 20:00 05/11/17 21:38 (Chloraseptic [place]) 1 spray Q6H PRN OROPHARYNG 05/11/17 16:00 05/11/17 17:28 (Duoneb Neb) 1 ampule Q6HR NEB NEB 05/11/17 22:00 05/12/17 09:01 Sodium Chloride 250 ml @ 15 mls/hr ONCE ONCE IV 05/11/17 20:00 05/12/17 12:39 05/12/17 01:06 Family History Noncontributory Social History Denies smoking or alcohol use Physical Exam Vital Signs Vital Signs Date Time Temp Pulse Resp B/P (MAP) Pulse Ox O2 Delivery O2 Flow Rate FiO2 05/12/17 09:02 100 40 05/12/17 09:02 40 05/12/17 08:00 40 05/12/17 08:00 99 05/12/17 07:00 100 Mechanical Ventilator 40 05/12/17 06:00 104 05/12/17 05:30 98.4 138 15 137/67 100 05/12/17 04:00 108 05/12/17 04:00 98.8 108 24 150/72 (98) 100 05/12/17 04:00 40 05/12/17 03:43 98 40 05/12/17 03:10 98.6 107 21 150/67 100 05/12/17 02:50 98.4 110 20 131/60 100 05/12/17 02:00 108 05/12/17 01:21 100 40 05/12/17 01:15 98.8 108 17 118/5 100 05/12/17 00:00 40 05/12/17 00:00 107 05/12/17 00:00 99.0 104 16 130/63 (85) 100 05/11/17 23:30 98.8 106 19 111/56 100 05/11/17 23:15 99.0 106 19 122/55 100 05/11/17 22:00 108 05/11/17 20:13 100 40 05/11/17 20:00 99.0 106 16 115/56 (75) 100 05/11/17 20:00 106 05/11/17 20:00 40 05/11/17 19:00 100 Mechanical Ventilator 6.00 40 05/11/17 18:00 109 05/11/17 16:34 100 40 05/11/17 16:00 98.6 110 20 141/71 (94) 100 05/11/17 16:00 110 05/11/17 12:00 98.9 103 21 139/65 (89) 100 05/11/17 12:00 103 05/11/17 11:45 40 05/11/17 11:45 100 40 05/11/17 11:45 40 Physical Exam GENERAL: Well-nourished, well-developed patient. Intubated. Awake SKIN: Warm and dry. HEAD: Normocephalic. EYES: No scleral icterus. No injection or drainage. NECK: Supple, trachea midline. No JVD or lymphadenopathy. CARDIOVASCULAR: Regular rate and rhythm without murmurs, gallops, or rubs. RESPIRATORY: Breath sounds equal bilaterally. No accessory muscle use. GASTROINTESTINAL: Abdomen soft, non-tender, nondistended. EXTREMITIES: No cyanosis, or edema. NEUROLOGICAL: Awake, alert, moving all extremities Laboratory Laboratory Tests Test 05/11/17 19:38 05/12/17 07:08 White Blood Count 14.8 11.4 Red Blood Count 2.14 2.71 Hemoglobin 6.6 8.2 Hematocrit 20.0 24.5 Mean Corpuscular Volume 93.5 90.2 Mean Corpuscular Hemoglobin 30.7 30.1 Mean Corpuscular Hemoglobin Concent 32.8 33.4 Red Cell Distribution Width 17.3 15.2 Platelet Count 95 92 Mean Platelet Volume 9.7 9.6 Total Creatine Kinase 104 122 Creatine Kinase MB 3.9 4.3 Troponin I 0.51 0.58 Neutrophils (%) (Auto) 75.6 Lymphocytes (%) (Auto) 5.5 Monocytes (%) (Auto) 17.7 Eosinophils (%) (Auto) 0.7 Basophils (%) (Auto) 0.5 Neutrophils # (Auto) 8.6 Lymphocytes # (Auto) 0.6 Monocytes # (Auto) 2.0 Eosinophils # (Auto) 0.1 Basophils # (Auto) 0.1 CBC Comment AUTO DIFF Differential Comment AUTO DIFF CONFIRMED Date/Time Source Procedure Growth Status 04/19/17 16:54 Blood Peripheral Aerobic Blood Culture - Final NO GROWTH IN 5 DAYS Complete 04/19/17 16:54 Blood Peripheral Anaerobic Blood Culture - Final NO GROWTH IN 5 DAYS Complete 05/06/17 09:30 Stool Stool Stool Occult Blood (LAYLA) - Final HEMOCCULT POSITIVE Complete 05/07/17 16:24 Sputum Endotracheal Gram Stain - Final Complete 05/07/17 16:24 Sputum Endotracheal Sputum Culture - Final MODERATE GROWTH NORMAL RESPIRATORY GORDON Complete 04/19/17 06:15 Urine Clean Catch Urine Culture - Final NO GROWTH Complete Result Diagram: 05/12/17 0708 05/11/17 0553 Imaging Last Impressions Chest X-Ray 05/11/17 06 Signed Impressions: Service Date/Time: May 05:49 - CONCLUSION: 1. Cardiomegaly and findings of vascular congestion without overt failure. There has been no significant change when compared to the prior exam. Brian Mcmanus MD Abdomen X-Ray 05/11/17 06 Signed Impressions: Service Date/Time: May 05:52 - CONCLUSION: 1. Continued colonic ileus. There has been no significant change when compared to the prior exam. Brian Mcmanus MD Catheter Placement X-Ray 05/10/17 0730 Signed Impressions: Service Date/Time: Wednesday, May 10, 2017 13:32 - CONCLUSION: Uncomplicated exchange of Vas-Cath for hemodialysis permacath with fluoroscopic guidance as above. The catheter can be used immediately. Duncan Delgado MD Enema w/Water Soluble 05/02/17 0000 Signed Impressions: Service Date/Time: Tuesday, May 02, 2017 08:02 - CONCLUSION: 1. Limited suboptimal exam. The cecum and right colon could not be opacified despite repeated attempts. 2. Residual stool and mild to moderate diverticulosis. Guevara Crowell MD Abdomen/Pelvis CT 05/02/17 0000 Signed Impressions: Service Date/Time: Tuesday, May 02, 2017 19:58 - CONCLUSION: 1. Nonspecific bowel gas pattern remains with contrast noted in the colon from the recent Gastrografin enema. The cecum remains distended. A rectal catheter is present. 2. No free air or fluid. 3. Small pleural effusions with mild consolidation in the lung bases. 4. Stable small adrenal masses likely representing adenomas. 5. Small nonobstructing left renal calculus. Guevara Crowell MD Renal Ultrasound 04/20/17 0000 Signed Impressions: Service Date/Time: April 15:07 - CONCLUSION: 1. There is no hydronephrosis. 2. Stable 8mm nonobstructing left renal stone. Duncan Avery MD Head CT 04/19/17 0702 Signed Impressions: Service Date/Time: Wednesday, April 19, 2017 07:29 - CONCLUSION: 1. Cerebral white matter hypodensity characteristic of chronic microvascular ischemic disease. 2. No evidence of acute infarct, hemorrhage, mass or edema. Renato Coughlin MD Assessment and Plan Problem List: (1) Chest pain ICD Codes: R07.9 - Chest pain Status: Acute Plan: 82 y/o F with cardiac risk factors age, obesity, HTN, DM, HLD consulted with chest pain and transient ST depressions in the lateral leads in the setting of Afib with RVR. Patient severely anemic and thrombocytopenic undergoing GI work up. Troponin likely due to demand ischemia given Afib with RVR and severe anemia. Unfortunately given active GI bleeding she is not candidate for LHC or PCI and/or anticoagulation or antiplatelets, ACEi. Plan: 1. Conservative management for CAD 2. Rate Control for Afib. Increase Lopressor 3. Start Nitro paste 1inch Thank you for the opportunity to participate in the care of this patient Will be available on a PRN basis for any questions or concerns (2) Abdominal pain ICD Codes: R10.9 - Unspecified abdominal pain Status: Acute (3) Atrial fibrillation with rapid ventricular response ICD Codes: I48.91 - Atrial fibrillation with rapid ventricular response Status: Acute (4) Acute respiratory failure ICD Codes: J96.00 - Acute respiratory failure, unspecified whether with hypoxia or hypercapnia Status: Acute (5) Respiratory distress ICD Codes: R06.00 - Dyspnea, unspecified Status: Acute (6) Respiratory failure ICD Codes: J96.90 - Respiratory failure, unspecified, unspecified whether with hypoxia or hypercapnia Status: Acute (7) Acute hypoxemic respiratory failure ICD Codes: J96.01 - Acute respiratory failure with hypoxia Status: Acute (8) Diabetes ICD Codes: E11.9 - Type 2 diabetes mellitus without complications Status: Acute (9) Hypertension ICD Codes: I10 - Hypertension Status: Acute Problem Qualifiers (1) Diabetes: Lucho Oliveros MD May 12, 2017 10:39
[2017-05-12] MEDS ORDERED: NITROGLYCERIN 2% OINT 1 GM PACKET TOPICAL ONE (10:45)
--- NOTE | 2017-05-12 12:06 | HHI.GIFU ---
Subjective Remarks Pt resting in bed in NAD, intubated. Family at bedside. Per nursing report pt had dark blood and clots from rectum over night. Liquid brown stool seen in rectal bag. (Deidre Flores) Objective Vitals I&O Vital Signs Date Time Temp Pulse Resp B/P (MAP) Pulse Ox O2 Delivery O2 Flow Rate FiO2 05/12/17 10:00 131 05/12/17 09:02 100 40 05/12/17 09:02 40 05/12/17 08:00 40 05/12/17 08:00 99 05/12/17 07:00 100 Mechanical Ventilator 40 05/12/17 06:00 104 05/12/17 05:30 98.4 138 15 137/67 100 05/12/17 04:00 108 05/12/17 04:00 98.8 108 24 150/72 (98) 100 05/12/17 04:00 40 05/12/17 03:43 98 40 05/12/17 03:10 98.6 107 21 150/67 100 05/12/17 02:50 98.4 110 20 131/60 100 05/12/17 02:00 108 05/12/17 01:21 100 40 05/12/17 01:15 98.8 108 17 118/5 100 05/12/17 00:00 40 05/12/17 00:00 107 05/12/17 00:00 99.0 104 16 130/63 (85) 100 05/11/17 23:30 98.8 106 19 111/56 100 05/11/17 23:15 99.0 106 19 122/55 100 05/11/17 22:00 108 05/11/17 20:13 100 40 05/11/17 20:00 99.0 106 16 115/56 (75) 100 05/11/17 20:00 106 05/11/17 20:00 40 05/11/17 19:00 100 Mechanical Ventilator 6.00 40 05/11/17 18:00 109 05/11/17 16:34 100 40 05/11/17 16:00 98.6 110 20 141/71 (94) 100 05/11/17 16:00 110 05/11/17 12:00 98.9 103 21 139/65 (89) 100 05/11/17 12:00 103 I/O 05/11/17 05/11/17 05/11/17 05/12/17 05/12/17 05/12/17 07:00 15:00 23:00 07:00 15:00 23:00 Intake Total 200 ml 1973 ml 1744 ml Output Total 250 ml 0 ml 525 ml 100 ml Balance -250 ml 200 ml 1448 ml 1644 ml Intake Oral 0 ml IV Total 100 ml 1892 ml 50 ml Tube Feeding 81 ml 84 ml TPN/PPN 524 ml Lipid 126 ml Packed Cells 900 ml Blood Product IV Normal Saline Flush 40 ml Tube Irrigant 20 ml Other 100 ml Output Urine Total 175 ml 200 ml 100 ml Stool Total 75 ml 325 ml Gastric Drainage Total 0 ml Tube Feeding Residual Discard 0 ml Bladder Scan Volume Amount 130 ml 130 ml Laboratory Laboratory Tests Test 05/11/17 19:38 05/12/17 07:08 White Blood Count 14.8 11.4 Red Blood Count 2.14 2.71 Hemoglobin 6.6 8.2 Hematocrit 20.0 24.5 Mean Corpuscular Volume 93.5 90.2 Mean Corpuscular Hemoglobin 30.7 30.1 Mean Corpuscular Hemoglobin Concent 32.8 33.4 Red Cell Distribution Width 17.3 15.2 Platelet Count 95 92 Mean Platelet Volume 9.7 9.6 Total Creatine Kinase 104 122 Creatine Kinase MB 3.9 4.3 Troponin I 0.51 0.58 Neutrophils (%) (Auto) 75.6 Lymphocytes (%) (Auto) 5.5 Monocytes (%) (Auto) 17.7 Eosinophils (%) (Auto) 0.7 Basophils (%) (Auto) 0.5 Neutrophils # (Auto) 8.6 Lymphocytes # (Auto) 0.6 Monocytes # (Auto) 2.0 Eosinophils # (Auto) 0.1 Basophils # (Auto) 0.1 CBC Comment AUTO DIFF Differential Comment AUTO DIFF CONFIRMED Date/Time Source Procedure Growth Status 04/19/17 16:54 Blood Peripheral Aerobic Blood Culture - Final NO GROWTH IN 5 DAYS Complete 04/19/17 16:54 Blood Peripheral Anaerobic Blood Culture - Final NO GROWTH IN 5 DAYS Complete 05/06/17 09:30 Stool Stool Stool Occult Blood (LAYLA) - Final HEMOCCULT POSITIVE Complete 05/07/17 16:24 Sputum Endotracheal Gram Stain - Final Complete 05/07/17 16:24 Sputum Endotracheal Sputum Culture - Final MODERATE GROWTH NORMAL RESPIRATORY GORDON Complete 04/19/17 06:15 Urine Clean Catch Urine Culture - Final NO GROWTH Complete Physical Exam HEENT: Normocephalic; atraumatic; no jaundice. Orotracheally intubated. CHEST: Diminished breath sounds. CARDIAC: irr HR, tachy ABDOMEN: Soft, obese, nontender; no hepatosplenomegaly; bowel sounds are present in all four quadrants. Flexiseal with liquid brown stool in bag EXTREMITIES: Anasarca SKIN: Normal; no rash; no jaundice. CAN VACUUM TESTER: Awake. Lethargic. Generalized weakness. (Deidre Flores) Assessment and Plan Plan ASSESSMENT: - Anemia - Hemoglobin dropped to 5.8 on 05/06. S/P 2 units PRBC on 05/06. Hemoccult positive. Hgb dropped to 6.6 yesterday got 2 x PRBC. last night report of clots via rectum. did have SSE x 2 yesterday. Liquid brown stool in bag. EGD normal - Abdominal pain, colonic ileus. KUB (04/30/17)----> Gaseous dilatation of colon greatest in the cecal region measuring up to 13 cm. Differential diagnosis includes ileus. A distal colonic obstruction could have a similar appearance. Of note, she has a history of SBO and underwent exploratory laparotomy with lysis of adhesions for abdominal pain, probable small bowel obstruction (01/05/13) with Dr. Tam. S/P Gastrografin Enema (05/02/17)--> Limited suboptimal exam. The cecum and right colon could not be opacified despite repeated attempts. Residual stool and mild to moderate diverticulosis. CT Scan abdomen and pelvis without iv contrast (05/02/17)--> nonspecific bowel gas pattern remains with contrast noted in the colon from recent Gastrografin enema. The cecum remains distended. A rectal catheter. No free air or fluid. Small pleural effusions with mild consolidation in the lung bases. Stable small adrenal masses likely representing adenomas. Small nonobstructing left renal calculus. KUB (05/08/17)---> Persistent mild dilatation of the ascending colon and transverse colon. Findings favor ileus. There are no findings to indicate a small bowel obstruction. When correlating with prior CT it is felt unlikely to represent any colonic obstruction. had 2x SSE now has copious liquid brown stool in bag. KUB 05/11 showing colonic ileus. - Acute on chronic kidney disease with electrolyte abnormalities. S/P Permacath , HD per renal - Respiratory failure, COPD Exacerbation, PNA. S/P Abx. Now intubated - Atrial fibrillation. Digoxin, cardizem, BB - HTN, DM, metabolic encephalopathy, hypothyroidism per attending 05/12/17 - had normal EGD. report of dark blood and clots from rectum. Per RN pt does nto tolerate positions changes, goes into AF with RVR. liquid brown stool in bag. abd not significantly distended. PLAN: - hold TF for now - consider colonoscopy when more stable - Monitor HH, transfuse as needed - Monitor labs - Supportive care - Further recommendations to follow based on results of above - Patient seen and examined by Dr. Hernández and myself and this note is written on his behalf (Deidre Flores) Physician Comments Seen and examined, plan as above. No signs of bleeding now. brown greenish BM's no blood. Unstable for colonoscopy . Will follow up with you. (Benton Hernández MD) Deidre Flores May 12, 2017 12:05 Benton Hernández MD May 12, 2017 13:54
--- NOTE | 2017-05-12 12:20 | HHI.HCPN ---
Reason for visit a. To assist with evaluation and management of symptoms including: Debility , pain, dyspnea b. To assist medical decision maker(s) with: better understanding of current medical conditions; weighing benefits/burdens of medical treatment options; making medical treatment decisions. . Subjective/Interval History Ms. Sales was seen and assessed in room 1336. She failed vent weaning trials again yesterday s/p EGD. Patient is anemic and thrombocytopenic, undergoing GI workup. KUB on 05/08/2017 showed persistent mild dilatation of the ascending colon and transverse colon. Repeat study done 05/11 remains consistent with possible ileus, without indication for small bowel obstruction. Patient had 975 mL of stool out overnight after soapsuds enema. Transfused overnight with 3 units of PRBCs for Hgb 6.6. Per nursing report, patient had 2 episodes of dark blood and clots from rectum over night. Liquid brown stool seen in rectal bag. Consider coloscopy when more stable. Follow up CXR this yesterday 05/11/17 showed no change from prior day which showed improving pulmonary edema and improving left basilar atelectasis vs. pneumonia. She is status post right IJ hemodialysis tunneled catheter placement then underwent hemodialysis on 05/10 with removal of 3 L. Cardiology was consulted for evaluation of elevated troponin and atrial fibrillation with RVR. Troponin is likely elevated secondary to demand ischemia given atrial fibrillation with RVR and severe anemia. Troponin elevated this morning @ 0.58. Patient complaining of chest pain. Cardiology recommending conservative management for CAD. Rate controlled with Lopressor; started on Nitropaste. . Family/friend interactions Met with patient sister and at bedside to discuss patient's clinical condition. Patient is lethargic, opening eyes only briefly to verbal stimuli. Patient's daughter reports her mother has verbalized ongoing aggressive goals. She states they discussed that it is possible the patient may require a tracheostomy if she can not be weaned from the mechanical ventilator, and her mother indicated that she wanted to pursue all necessary options to "get better ". . Advance Directives Living Will: Never completed Health Care Surrogate: Copy in medical record Durable Power of [employer] Driver: Never completed Advance Directive Specifics Date completed: 05/08/2017 . Health Care Surrogate(s): Health care surrogate form completed 05/08/2017 designating the patient's daughter (Shilpa) as the healthcare surrogate decision maker. The patient's son (Jason) is the alternate health care surrogate decision maker. Documented care wishes: Healthcare surrogate form was completed 05/08/2017. No other documented care wishes have been completed. Plan to discuss written advanced directives/living will after the patient has been extubated in the upcoming days. . Objective Vital Signs Date Time Temp Pulse Resp B/P (MAP) Pulse Ox O2 Delivery O2 Flow Rate FiO2 05/12/17 10:00 131 05/12/17 09:02 100 40 05/12/17 09:02 40 05/12/17 08:00 40 05/12/17 08:00 99 05/12/17 07:00 100 Mechanical Ventilator 40 05/12/17 06:00 104 05/12/17 05:30 98.4 138 15 137/67 100 05/12/17 04:00 108 05/12/17 04:00 98.8 108 24 150/72 (98) 100 05/12/17 04:00 40 05/12/17 03:43 98 40 05/12/17 03:10 98.6 107 21 150/67 100 05/12/17 02:50 98.4 110 20 131/60 100 05/12/17 02:00 108 05/12/17 01:21 100 40 05/12/17 01:15 98.8 108 17 118/5 100 05/12/17 00:00 40 05/12/17 00:00 107 05/12/17 00:00 99.0 104 16 130/63 (85) 100 05/11/17 23:30 98.8 106 19 111/56 100 05/11/17 23:15 99.0 106 19 122/55 100 05/11/17 22:00 108 05/11/17 20:13 100 40 05/11/17 20:00 99.0 106 16 115/56 (75) 100 05/11/17 20:00 106 05/11/17 20:00 40 05/11/17 19:00 100 Mechanical Ventilator 6.00 40 05/11/17 18:00 109 05/11/17 16:34 100 40 05/11/17 16:00 98.6 110 20 141/71 (94) 100 05/11/17 16:00 110 05/11/17 12:00 98.9 103 21 139/65 (89) 100 05/11/17 12:00 103 Intake & Output 05/12/17 05/12/17 07:00 19:00 Intake Total 1744 ml Output Total 100 ml Balance 1644 ml Intake Oral 0 ml IV Total 50 ml Tube Feeding 84 ml TPN/PPN 524 ml Lipid 126 ml Packed Cells 900 ml Blood Product IV Normal Saline Flush 40 ml Tube Irrigant 20 ml Output Urine Total 100 ml Bladder Scan Volume Amount 130 ml . Physical Exam CONSTITUTIONAL/GENERAL: This is an elderly female who remains orotracheally intubated, lethargic in no acute distress. TUBES/LINES/DRAINS: OGT, ETT, Nelson catheter, digni-shield, soft restraints, Vas -Cath, PIV 2 SKIN: Skin temperature appropriate. Not diaphoretic. HEAD: Atraumatic. Normocephalic. EYES: Pupils equal and round and reactive. No scleral icterus. No injection or drainage. Fundi not examined. ENT: Hearing grossly normal. Nose without bleeding or purulent drainage. NECK: Orally intubated CARDIOVASCULAR: tachycardic.No murmur, gallops, or rubs. No JVD. Peripheral pulses symmetric. RESPIRATORY/CHEST: Mechanically ventilated; diminished breaths sounds. No accessory muscles used. GASTROINTESTINAL: Abdomen soft, non-tender, nondistended. Hypoactive bowel sounds present. GENITOURINARY: Without palpable bladder distension. Nelson catheter in place. MUSCULOSKELETAL: Extremities without clubbing or cyanosis. NEUROLOGICAL: Arouses to verbal stimuli;lethargic. Generalized weakness PSYCHIATRIC: No obvious anxiety/depression. no apparent hallucinations or other psychotic thought process. . Diagnostic Tests Laboratory Laboratory Tests Test 05/10/17 05:08 05/11/17 05:53 05/11/17 19:38 05/12/17 07:08 White Blood Count 14.6 TH/MM3 (4.0-11.0) 8.3 TH/MM3 (4.0-11.0) 14.8 TH/MM3 (4.0-11.0) 11.4 TH/MM3 (4.0-11.0) Red Blood Count 3.42 MIL/MM3 (4.00-5.30) 2.89 MIL/MM3 (4.00-5.30) 2.14 MIL/MM3 (4.00-5.30) 2.71 MIL/MM3 (4.00-5.30) Hemoglobin 10.4 GM/DL (11.6-15.3) 8.9 GM/DL (11.6-15.3) 6.6 GM/DL (11.6-15.3) 8.2 GM/DL (11.6-15.3) Hematocrit 32.7 % (35.0-46.0) 26.8 % (35.0-46.0) 20.0 % (35.0-46.0) 24.5 % (35.0-46.0) Mean Corpuscular Volume 95.7 FL (80.0-100.0) 92.7 FL (80.0-100.0) 93.5 FL (80.0-100.0) 90.2 FL (80.0-100.0) Mean Corpuscular Hemoglobin 30.5 PG (27.0-34.0) 30.9 PG (27.0-34.0) 30.7 PG (27.0-34.0) 30.1 PG (27.0-34.0) Mean Corpuscular Hemoglobin Concent 31.9 % (32.0-36.0) 33.3 % (32.0-36.0) 32.8 % (32.0-36.0) 33.4 % (32.0-36.0) Red Cell Distribution Width 17.4 % (11.6-17.2) 17.8 % (11.6-17.2) 17.3 % (11.6-17.2) 15.2 % (11.6-17.2) Platelet Count 85 TH/MM3 (150-450) 99 TH/MM3 (150-450) 95 TH/MM3 (150-450) 92 TH/MM3 (150-450) Mean Platelet Volume 8.7 FL (7.0-11.0) 9.3 FL (7.0-11.0) 9.7 FL (7.0-11.0) 9.6 FL (7.0-11.0) Neutrophils (%) (Auto) 89.1 % (16.0-70.0) 75.6 % (16.0-70.0) Lymphocytes (%) (Auto) 5.2 % (9.0-44.0) 5.5 % (9.0-44.0) Monocytes (%) (Auto) 4.7 % (0.0-8.0) 17.7 % (0.0-8.0) Eosinophils (%) (Auto) 0.6 % (0.0-4.0) 0.7 % (0.0-4.0) Basophils (%) (Auto) 0.4 % (0.0-2.0) 0.5 % (0.0-2.0) Neutrophils # (Auto) 13.0 TH/MM3 (1.8-7.7) 8.6 TH/MM3 (1.8-7.7) Lymphocytes # (Auto) 0.8 TH/MM3 (1.0-4.8) 0.6 TH/MM3 (1.0-4.8) Monocytes # (Auto) 0.7 TH/MM3 (0-0.9) 2.0 TH/MM3 (0-0.9) Eosinophils # (Auto) 0.1 TH/MM3 (0-0.4) 0.1 TH/MM3 (0-0.4) Basophils # (Auto) 0.1 TH/MM3 (0-0.2) 0.1 TH/MM3 (0-0.2) CBC Comment AUTO DIFF AUTO DIFF Differential Total Cells Counted 100 Neutrophils % (Manual) 92 % (16-70) Lymphocytes % 3 % (9-44) Monocytes % 4 % (0-8) Neutrophils # (Manual) 13.6 TH/MM3 (1.8-7.7) Myelocytes 1 % (0-0) Nucleated Red Blood Cells 1 /100 WBC (0-0) Differential Comment FINAL DIFF MANUAL AUTO DIFF CONFIRMED Platelet Estimate LOW (NORMAL) Platelet Morphology Comment NORMAL (NORMAL) Prothrombin Time 11.8 SEC (9.8-11.6) Prothromb Time International Ratio 1.1 RATIO Blood Urea Nitrogen 32 MG/DL (7-18) 40 MG/DL (7-18) Creatinine 3.92 MG/DL (0.50-1.00) 4.56 MG/DL (0.50-1.00) Random Glucose 140 MG/DL (74-106) 113 MG/DL (74-106) Total Protein 7.0 GM/DL (6.4-8.2) Albumin 2.4 GM/DL (3.4-5.0) Calcium Level 8.4 MG/DL (8.5-10.1) 8.4 MG/DL (8.5-10.1) Phosphorus Level 2.8 MG/DL (2.5-4.9) 1.5 MG/DL (2.5-4.9) Magnesium Level 2.0 MG/DL (1.5-2.5) 1.9 MG/DL (1.5-2.5) Alkaline Phosphatase 88 U/L (45-117) Aspartate Amino Transf (AST/SGOT) 36 U/L (15-37) Alanine Aminotransferase (ALT/SGPT) 36 U/L (10-53) Total Bilirubin 0.7 MG/DL (0.2-1.0) Sodium Level 137 MEQ/L (136-145) 135 MEQ/L (136-145) Potassium Level 3.7 MEQ/L (3.5-5.1) 3.6 MEQ/L (3.5-5.1) Chloride Level 100 MEQ/L (98-107) 100 MEQ/L (98-107) Carbon Dioxide Level 24.9 MEQ/L (21.0-32.0) 24.3 MEQ/L (21.0-32.0) Anion Gap 12 MEQ/L (5-15) 11 MEQ/L (5-15) Estimat Glomerular Filtration Rate 13 ML/MIN (>89) 11 ML/MIN (>89) Total Creatine Kinase 104 U/L (26-192) 122 U/L (26-192) Creatine Kinase MB 3.9 NG/ML (0.5-3.6) 4.3 NG/ML (0.5-3.6) Troponin I 0.51 NG/ML (0.02-0.05) 0.58 NG/ML (0.02-0.05) . Result Diagram: 05/12/17 0708 05/11/17 0553 Imaging Last 72 hours Impressions Chest X-Ray 05/11/17 0600 Signed Impressions: Service Date/Time: May 05:49 - CONCLUSION: 1. Cardiomegaly and findings of vascular congestion without overt failure. There has been no significant change when compared to the prior exam. Brian Mcmanus MD Abdomen X-Ray 05/11/17 0600 Signed Impressions: Service Date/Time: May 05:52 - CONCLUSION: 1. Continued colonic ileus. There has been no significant change when compared to the prior exam. Brian Mcmanus MD Catheter Placement X-Ray 05/10/17 0730 Signed Impressions: Service Date/Time: Wednesday, May 10, 2017 13:32 - CONCLUSION: Uncomplicated exchange of Vas-Cath for hemodialysis permacath with fluoroscopic guidance as above. The catheter can be used immediately. Duncan Delgado MD Chest X-Ray 05/10/17 0600 Signed Impressions: Service Date/Time: Wednesday, May 10, 2017 05:05 - CONCLUSION: 1. Improving pulmonary edema. 2. Improving left basilar atelectasis versus pneumonia Brian Mcmanus MD . Procedures 04/19/17: Intubation 04/19/17: OGT placement 04/21/17: Extubation 05/01/17: NGT placed. 05/05/17: Reintubation; Left IJ central line placement 05/10/2017: PermCath placement . Assessment and Plan Disease Oriented Problem List: (1) Hypothyroidism (2) Hyperlipidemia (3) Diabetes (4) Pneumonia (5) Atrial fibrillation (6) Acute on chronic kidney failure (7) COPD with acute exacerbation (8) Acute metabolic encephalopathy (9) Peripheral neuropathy (10) History of small bowel obstruction (11) History of thyroid cancer (12) Rectal bleeding Symptom Scale: (1) Debility 0-10 Scale: Unable to quantify (bedbound status, restrained.) (2) Dyspnea 0-10 Scale: Unable to quantify (failing vent trials. Third intubation this admission.) (3) Pain 0-10 Scale: Unable to quantify (generalized discomfort, invasive lines, restraints, bedbound.) Pertinent Non-Medical Issues Psychosocial: Patient is originally from [place]. She had 3 children. Daughter (Shilpa) lives in [place], [place] and son (Jason) lives in [place], [place]. Patient had another daughter who from breast cancer. Patient was remarried after her ; she is currently to her second (Vitaliy). 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 She has 25 grandchildren/great- grandchildren. Spiritual: Denominational messi Legal:Health care surrogate form completed 05/08/2017 designating the patient's daughter (Shilpa) as the healthcare surrogate decision maker. The patient's son (Jason) is the alternate health care surrogate decision maker. Ethical issues impacting care: No known ethical issues impacting care at this time. . Important Contacts Vitaliy Sales, spouse: [phone] or [phone] (cell) Shilpa Gonzales, daughter/[facility]: [phone] Jason Sales, son/alternate HCS: [phone] . Prognosis Patient is an 82-year-old female who has been admitted 3 times in 2017 for management of respiratory failure/pneumonia. She has required intubation/ mechanical ventilation x 2 since her admission on 04/19/2017. Given patient's complex medical history with recurrent hospitalizations, advanced age and recent decline in functional status, she is high risk for ongoing setbacks and complications. . Code Status: Full Code Plan PLAN: Legal decision maker: Her daughter, Shilpa, has been designated as the healthcare surrogate and her son, Jason, is the alternate healthcare surrogate. Goals: Remain aggressive. Patient is lethargic, opening eyes only briefly to verbal stimuli. Patient's daughter reports her mother has verbalized ongoing aggressive goals. She states they discussed that it is possible the patient may require a tracheostomy if she can not be weaned from the mechanical ventilator, and her mother indicated that she wanted to pursue all necessary options to "get better". CODE STATUS: FULL CODE. SYMPTOMS: * Dyspnea: She has failed vent weaning again yesterday. Patient is motivated to cooperate with trials. She is awake on the mechanical ventilator, alert and active. She was intubated 04/19/17 on admission, extubated 04/21 and required reintubation 05/06/17. Likely multifactorial related to her COPD, obesity and infection. Chest x-ray stable showing improved pulmonary edema and vascular congestion. * Pain: She denies pain at this time and is receiving no pain medication. Likely sources of pain would be bedbound status, invasive lines, intubation, restraints. * Debility: Previously independent with all ADLs, residing at home her . She used a cane or walker for ambulation. She will likely require rehabilitation if she can be successfully extubated. She has been accepted at [facility] and rehabilitation, as well as [facility] for dialysis. She is Hemoccult positive and has required transfusion of 3 units for anemia which is likely contributing to her debility, weakness and fatigue. Palliative care will continue to follow the patient during hospital course as condition evolves, to assist patient/decision-maker with understanding of their medical conditions, weighing benefits/burdens of treatment options, for clarification of goals of treatment. Additionally will assist with any symptoms of palliative concern. . Attestation To help prompt me to consider important information that might be impacting today's encounter and assessment, information from prior notes written by myself or my colleagues may have been "brought forward" into today's note. My signature on this note, however, is an attestation that I personally performed the exam, history, and/or decision-making noted today, and, unless otherwise indicated, the interactions with patient, family, and staff as well as the review of records all occurred today. I also attest that the listed assessment and stated plan reflect my best clinical judgment today based on the combination of historical information, prior notes, and today's exam/ interactions. When time spent is documented, it refers only to time spent today by the signer, or if indicated, combined time spent today by collaborating physician/nurse practitioner. . Yulissa Barraza May 12, 2017 12:19
--- NOTE | 2017-05-12 12:49 | HHI.NPPN ---
Subjective History of Present Illness Patient is a 82-year-old with sepsis, COPD, intubation, diabetes, acute renal failure and chronic kidney disease. Additional Remarks Patient remain on the vent, going for colonoscopy Objective Data Data Vital Signs Date Time Temp Pulse Resp B/P (MAP) Pulse Ox O2 Delivery O2 Flow Rate FiO2 05/12/17 12:00 97 05/12/17 12:00 40 05/12/17 10:00 131 05/12/17 09:02 100 40 05/12/17 09:02 40 05/12/17 08:00 40 05/12/17 08:00 99 05/12/17 07:00 100 Mechanical Ventilator 40 05/12/17 06:00 104 05/12/17 05:30 98.4 138 15 137/67 100 05/12/17 04:00 108 05/12/17 04:00 98.8 108 24 150/72 (98) 100 05/12/17 04:00 40 05/12/17 03:43 98 40 05/12/17 03:10 98.6 107 21 150/67 100 05/12/17 02:50 98.4 110 20 131/60 100 05/12/17 02:00 108 05/12/17 01:21 100 40 05/12/17 01:15 98.8 108 17 118/5 100 05/12/17 00:00 40 05/12/17 00:00 107 05/12/17 00:00 99.0 104 16 130/63 (85) 100 05/11/17 23:30 98.8 106 19 111/56 100 05/11/17 23:15 99.0 106 19 122/55 100 05/11/17 22:00 108 05/11/17 20:13 100 40 05/11/17 20:00 99.0 106 16 115/56 (75) 100 05/11/17 20:00 106 05/11/17 20:00 40 05/11/17 19:00 100 Mechanical Ventilator 6.00 40 05/11/17 18:00 109 05/11/17 16:34 100 40 05/11/17 16:00 98.6 110 20 141/71 (94) 100 05/11/17 16:00 110 -: 05/12/17 0708 05/11/17 0553 Physical Exam General Appearance: No Acute Distress, Comfortable, Obese Neck Neck Exam: Neck Supple Pulmonary Resp Exam: Decreased Bases Cardiology CV Exam: Arrhythmia Gastrointestinal/Abdomen GI Exam: Bowel Sounds Hypoactive Extremeties Extremities Exam: Trace Edema Neurologic Neuro Exam: Alert, Awake Psychiatric Psych Exam: Appropriate Responses Assessment/Plan Problem List: (1) Acute on chronic renal insufficiency ICD Codes: N28.9 - Disorder of kidney and ureter, unspecified; N18.9 - Chronic kidney disease, unspecified Status: Acute Plan: Patient is in acute renal failure and had chronic kidney disease ESRD with no recovery no recovery Eliquis on hold and give heparin placed PermCath yesterday may need AVF as well GI and colorectal surgery following the patient. 3 u PRBC for drop in Hb Colonoscopy once stable HD yesterday HD T,T,S schedule (2) Hypertension ICD Codes: I10 - Hypertension Status: Acute Plan: Blood pressure was low (3) Diabetes ICD Codes: E11.9 - Type 2 diabetes mellitus without complications Status: Acute Plan: Continue to monitor (4) COPD with acute exacerbation ICD Codes: J44.1 - Chronic obstructive pulmonary disease with (acute) exacerbation Plan: extubated Problem Qualifiers (1) Diabetes: Tonja Grewal MD May 12, 2017 12:49
--- NOTE | 2017-05-12 12:58 | HHI.CCPN ---
Subjective Remarks/Hospital Course The patient is an 82 year old female past with past medical history significant for hypertension, atrial fibrillation, diabetes mellitus, obesity, hypothyroidism, hyperlipidemia, diabetic neuropathy, who was seen in ED 3 days ago bronchospasm. She has COPD/Asthma and restrictive lung disease related to her obesity. Patient was treated for reactive airway disease, given breathing treatments and was discharged on as needed inhalers. Patient was brought in today by her as she was having shortness of breath and on the way to the ED when she slumped over in the car. In the emergency department she showed agonal breathing, she was intubated for airway protection emergently. Patient was given Solu-Medrol and breathing treatments and was placed on the mechanical ventilation. Chest x-ray showed bilateral infiltrates concerning for pneumonia. CT of the head was negative. I evaluated the patient in the ICU. She is on minimal sedation and mild attempts to wake up and intermittently tries to follows commands. She still on high oxygen requirement FiO2 is 60% with a PEEP of 5. I have increased the PEEP to 10. I have started the patient on scheduled IV Solu-Medrol, DuoNeb breathing treatments, cefepime and azithromycin for probable pneumonia. 04/20 Remains intubated, off sedation following commands. Currently FiO2 had been weaned to 40%. Urine output 950 ml since admission. Start SBT, Bumex 1 mg IV x1. 04/21: Tolerating CPAP better today, Appears calm following commands. UO adequate, though creat increasing. Cultures remain negative 04/22: Extubated yesterday required BiPAP overnight. Currently on nasal cannula slightly tachypneic but able to talk in full sentences maintaining oxygen saturation 04/23: Breathing more comfortably today on nasal cannula. Daughter At the bedside. Urine output adequate, creatinine has slightly improved 05/05: Rapid response team was called due to patient's altered mental status and hypoxemia. She was immediately transferred to ICU with a blood gas showing severe hypercarbic acidosis and was immediately intubated. She also became slightly hypotensive requiring a central line placement and initiation of vasopressor therapy Subjective 05/06: Awake and alert but not following commands. Nods head but inappropriately to questions. CAM ICU positive. Sedation is currently been held. Off norepinephrine. Currently nothing by mouth. 05/07: Tmax 100.4 Patient awake following commands. Sedation off a greater than 24-hour. Discussion of CODE STATUS with patient and daughter, patient states she requests to be full code explanation provided in detail. CODE STATUS changed to full code. Sputum cultures pending. Empiric antibiotics initiated Levaquin and cefepime. Patient continues on CPAP trials. The patient lasted 13 hours yesterday on CPAP. Plan for Vas-Cath placement by interventional radiology scheduled for 05/10. 05/08: Patient continues on CPAP trials, alert and responsive, denies pain. Plan for obtaining SBT parameters today a successful will extubate. Sputum culture revealed initial preliminary results of budding yeasts, micafungin added to medication regimen. Patient's scheduled by IR placement of Vas-Cath in a.m.. Patient continues on Reglan and nothing by mouth status per GI, large amounts of diarrhea/loose stools, plan for KUB this afternoon. 05/09: Tmax 99.0. The patient tolerated CPAP trials continuation overnight, approximately 24 hours. SBT performed last evening,WNL. Patient remains awake , alert and interactive. The patient is scheduled for permacath placement via IR this a.m. to be followed by dialysis. Plan for SBT trial postdialysis with a trial of extubation. Throughout the night the patient became tachycardic, with systolic blood pressure greater than 160s. Metoprolol resumed. Patient complained of throat pain early this a.m. relieved with Tylenol. GI following, obtained repeat KUB yesterday we'll await recommendations. Plan to discontinue IV fluids and initiate PPN. 05/10: Afebrile. Patient underwent IHD with 3 L fluid removal yesterday. Plan for permacath placement today. Patient noted to be continued hypertensive, Cardizem home medication resumed. Patient underwent SBT trials postdialysis yesterday with subsequent failure unable to extubate. Plan for repeat SBT parameters today, with anticipation of possible extubation. 05/11: Remains orally intubated on mechanical ventilation. EGD unremarkable 05/12: Remains orally intubated on mechanical ventilation. Had chest pain yesterday with EKG changes in the lateral leads. Troponin borderline 0.51. Hemoglobin 6.6 for which 2 units PRBCs were transfused yesterday. Patient was noted to have rectal bleeding this morning for which GI was notified. Objective Vital Signs Date Time Temp Pulse Resp B/P (MAP) Pulse Ox O2 Delivery O2 Flow Rate FiO2 05/12/17 12:00 97 05/12/17 12:00 40 05/12/17 09:02 100 05/12/17 07:00 Mechanical Ventilator 05/12/17 05:30 98.4 15 137/67 05/11/17 19:00 6.00 Intake and Output 05/12/17 05/12/17 05/13/17 08:00 16:00 00:00 Intake Total 1724 ml Output Total 100 ml Balance 1624 ml Result Diagram: 05/12/17 0708 05/11/17 0553 Imaging Last Impressions Chest X-Ray 05/08/17 0600 Signed Impressions: Service Date/Time: Monday, May 08, 2017 03:23 - CONCLUSION: 1. Cardiomegaly and findings of vascular congestion without overt failure. There has been no significant change when compared to the prior exam. Brian Mcmanus MD Abdomen X-Ray 05/08/17 0000 Signed Impressions: Service Date/Time: Monday, May 08, 2017 15:33 - CONCLUSION: Persistent mild dilatation of the ascending colon and transverse colon. Findings favor ileus. There are no findings to indicate small bowel obstruction. When correlating with prior CT it is felt unlikely to represent any colonic obstruction. Duncan Avery MD Enema w/Water Soluble 05/02/17 0000 Signed Impressions: Service Date/Time: Tuesday, May 02, 2017 08:02 - CONCLUSION: 1. Limited suboptimal exam. The cecum and right colon could not be opacified despite repeated attempts. 2. Residual stool and mild to moderate diverticulosis. Guevara Crowell MD Abdomen/Pelvis CT 05/02/17 0000 Signed Impressions: Service Date/Time: Tuesday, May 02, 2017 19:58 - CONCLUSION: 1. Nonspecific bowel gas pattern remains with contrast noted in the colon from the recent Gastrografin enema. The cecum remains distended. A rectal catheter is present. 2. No free air or fluid. 3. Small pleural effusions with mild consolidation in the lung bases. 4. Stable small adrenal masses likely representing adenomas. 5. Small nonobstructing left renal calculus. Guevara Crowell MD Catheter Placement X-Ray 05/01/17 0000 Signed Impressions: Service Date/Time: Monday, May 01, 2017 11:45 - CONCLUSION: Uncomplicated line placement as above. Brian Mcmanus MD Renal Ultrasound 04/20/17 0000 Signed Impressions: Service Date/Time: April 15:07 - CONCLUSION: 1. There is no hydronephrosis. 2. Stable 8mm nonobstructing left renal stone. Duncan Avery MD Head CT 04/19/17 0702 Signed Impressions: Service Date/Time: Wednesday, April 19, 2017 07:29 - CONCLUSION: 1. Cerebral white matter hypodensity characteristic of chronic microvascular ischemic disease. 2. No evidence of acute infarct, hemorrhage, mass or edema. Renato Coughlin MD Last Impressions Chest X-Ray 05/06/17 0000 Signed Impressions: Service Date/Time: Saturday, May 06, 2017 03:22 - CONCLUSION: Left IJ central venous catheter courses superiorly in the region of the SVC with the tip in the region of distal right internal jugular vein or right brachiocephalic vein. This could be retracted 5 cm. No evidence of pneumothorax. Hussain Green MD Abdomen X-Ray 05/04/17 0600 Signed Impressions: Service Date/Time: May 06:03 - CONCLUSION: Contrast through to the rectum. Basically stable dilatation of the proximal colon Duncan Delgado MD Enema w/Water Soluble 05/02/17 0000 Signed Impressions: Service Date/Time: Tuesday, May 02, 2017 08:02 - CONCLUSION: 1. Limited suboptimal exam. The cecum and right colon could not be opacified despite repeated attempts. 2. Residual stool and mild to moderate diverticulosis. Guevara Crowell MD Abdomen/Pelvis CT 05/02/17 0000 Signed Impressions: Service Date/Time: Tuesday, May 02, 2017 19:58 - CONCLUSION: 1. Nonspecific bowel gas pattern remains with contrast noted in the colon from the recent Gastrografin enema. The cecum remains distended. A rectal catheter is present. 2. No free air or fluid. 3. Small pleural effusions with mild consolidation in the lung bases. 4. Stable small adrenal masses likely representing adenomas. 5. Small nonobstructing left renal calculus. Guevara Croewll MD Catheter Placement X-Ray 05/01/17 0000 Signed Impressions: Service Date/Time: Monday, May 01, 2017 11:45 - CONCLUSION: Uncomplicated line placement as above. Brian Mcmanus MD Renal Ultrasound 04/20/17 0000 Signed Impressions: Service Date/Time: April 15:07 - CONCLUSION: 1. There is no hydronephrosis. 2. Stable 8mm nonobstructing left renal stone. Duncan Avery MD Head CT 04/19/17 0702 Signed Impressions: Service Date/Time: Wednesday, April 19, 2017 07:29 - CONCLUSION: 1. Cerebral white matter hypodensity characteristic of chronic microvascular ischemic disease. 2. No evidence of acute infarct, hemorrhage, mass or edema. Renato Coughlin MD Objective Remarks GEN: 82-year-old female, currently orotracheally intubated responsive and interactive, in no acute distress Head - normocephalic atraumatic. ENT: Oropharynx without erythema access. Orotracheally intubated. Dressing clean dry and intact previous site of left central line Neck: Right IJ vasc catheter catheter C/D/I and intact without erythema or drainage. Cardiovascular: Sinus tachycardia S1, S2. No S4. Without murmur. Telemetry- ST HR110 Lungs: Diminished breath sounds bilaterally. Mild expiratory inspiratory wheezing Abdomen: Abdomen morbidly obese, soft nontender. No guarding, rebound, or rigidity. Normoactive bowel sounds. Dign[place] continuous liquid stool Extremities: 1+ edema/anasarca Neurologic: RASS 0. Pupils are symmetrical 3 mm and reactive to light bilaterally. Patient following commands communicating by nodding of head appropriately. Moves all 4 extremity spontaneously. Procedures 05/10 - IR for permacath Date of Insertion: May 05, 2017 Date of Removal: May 07, 2017 Line: Central Venous Catheter Side: Left Location: Jugular A/P Assessment and Plan NEURO/PSYCH: Acute metabolic encephalopathy-resolved - Propofol for for vent synchrony while intubated,Fentanyl discontinued. Patient currently has propofol on hold continuous CPAP trials denies discomfort - Goal of RASS -2, Currently RASS 0 - Daily sedation vacation - CT of the head negative for acute findings, holding gabapentin - Morphine when necessary pain (held) - Tylenol 650 mg every 6 hours when necessary for pain RESP: Acute hypoxemic respiratory failure Pneumonia COPD with exacerbation Restrictive lung disease - Extubated 04/21. Reintubated 05/05 - PRVC 18/500/1// Ventilator bundle -DuoNebs Continues on CPAP trials-14/11 FIO2 .40%. 05/07 SBT NIF -30/ FVC 1.04 RSBI 30 with + cuff leak, chest x-ray 05/07 show pulmonary vascular congestion but no overt failure 05/09 SBT parameters failed - RSBI 95 , VT 240 NIF -31 FVC 390 Plan for repeat SBT post dialysis with a trial of extubation (ETT day 6)- discussion with family regarding possibility of tracheostomy 05/07 sputum culture- budding yeast, Micafungin (day 4) CV: Chronic A. fib Transient hypotension Hypertension Chest pain -Goal to maintain MAP greater than equal to 65 - Rate controlled atrial fibrillation- HR > 100. Metoprolol reinitiated 50 mg twice a day. Lisinopril patient's home med has been discontinued in the setting of CKD. -Holding Apixaban currently. Continue subcutaneous heparin - Anticoagulation hold for anemia.. Resume when clinically indicated -Restarted diltiazem 360mg/d , metoprolol 100 mg twice a day. 05/07- digoxin level 1.3 . Hold for now, janell in the setting of ARF. Last documented level 1.8 - normal saline at 42 cc /hr discontinued, PPN @ 42cc/hr - On atorvastatin 20 mg daily for dyslipidemia. - cardiology consult noted. Starting nitropatch 0.2mg/day on 05/12, Hold ASA till GI clears in v/o rectal bleeding. D/W Dr. Cuevas GI: Colonic ileus Gastrografin enema 05/02. Proximal colonic dilatation. Patient is having bowel movements. No abdominal pain Famotidine for GI prophylaxis On metoclopramide 5 mg IV every 8 hours for colonic ileus per GI. Follow-up with GI for further recommendations - EGD planned for 05/11 05/08 repeat KUB-mildly dilated ascending and transverse colon. Distention unchanged, but transverse colon distally more dilated 05/09 Begin PPN : Acute on chronic kidney disease Secondary hyperparathyroidism - Nephrology -Dr. Grewal - Monitor renal function closely. Nelson catheter. UOP last 24 hours- 580cc, IHD 05/09 3 L removed - Hemodialysis per nephrology. Currently on Monday/ and Monday - IR for permacath 05/10, obtained postdialysis labs - Continue Calciferol 0.25 mcg daily for secondary hyperparathyroidism ID: Severe sepsis resolved Pneumonia - Blood sputum and urine culture, all negative to date - Empiric cefepime and azithromycin for 7-10 days course completed - Sputum culture 05/07 budding yeast-micafungin day 2 HEME: Leukocytosis Normocytic anemia - Monitor CBC, CMP, INR -Holding apixaban ENDO: Hypothyroidism Type 2 diabetes - Continue levothyroxine at 125 g daily, sliding-scale insulin - SSI with every 6 hours Accu-Cheks on novolog to maintain euglycemia. Holding insulin detemir 10 units twice a day while nothing by mouth MSK: OA/OP Continue cholecalciferol 400 units twice a day PT evaluate and treat PT requested functional maintenance daily PROPH: - Bilateral lower extremity SCDs, heparin subcutaneous LINES: -Left IJ central line placed 05/05-05/07. right IJ-brachiocephalic Critical Care: The total critical care time was 30 minutes. Time to perform other separately billable procedures was not included in the critical care time. 05/07: Discussed with Vitaliy Sales and daughter. Full CODE STATUS. All family members acknowledge understanding and present in room during discussion. CODE STATUS will be changed. Palliative care consulted as well for goals of care. 05/08: Palliative of care meeting, patient instituted daughter as primary POA. Andrew Dias MD May 12, 2017 12:58
[2017-05-12] MEDS: MICAFUNGIN INJ 100 MG in SODIUM CHLORIDE 0.9% INJ 100 ML IV SCH (14:15)
[2017-05-12] MEDS: NITROGLYCERIN 0.2 MG/HR PATCH T-DERMAL SCH (15:00)
[2017-05-12] MEDS: DILTIAZEM HCL 60 MG TAB PO SCH ×2 (16:33→16:34)
[2017-05-12] MEDS: LEVOFLOXACIN/DEXTROSE 250 MG/50 ML IV SCH (16:34)
--- NOTE | 2017-05-12 17:57 | EKG ---
Date Performed: 05/12/2017 Time Performed: 09:47:36 PTAGE: 82 years EKG: Atrial fibrillation with rapid ventricular response. Extensive ST-T changes are nonspecific Abnormal ECG PREVIOUS TRACING : 05/11/2017 17.44 DOCTOR: Rylie Simmons Interpretating Date/Time 05/12/2017 17:55:47
--- NOTE | 2017-05-12 18:17 | EKG ---
Date Performed: 05/11/2017 Time Performed: 17:44:36 PTAGE: 82 years EKG: Possible atrial flutter with rapid ventricular response. Extensive ST-T changes Abnormal EC G PREVIOUS TRACING : 04/24/2017 10.50 DOCTOR: Rylie Simmons Interpretating Date/Time 05/12/2017 18:13:47
[2017-05-12] MEDS: ATORVASTATIN 20 MG TAB PO SCH (20:03)
[2017-05-12] MEDS: HEPARIN SODIUM - SQ 10,000 UNITS/ML VIAL SQ SCH (20:14)
[2017-05-12] MEDS: FAT EMULSION 20% INJ 250 ML (@10 mls/hr) IV SCH (20:16)
[2017-05-12] MEDS: SODIUM CHLORIDE 23.4% INJ 5.5 MEQ, SODIUM ACETATE INJ 29.5 MEQ, POTASSIUM CHLORIDE INJ ... IV SCH ×14 (20:30→22:00)
[2017-05-13] VITALS (19 sets, daily range): BP systolic 100–160; BP diastolic 53–99; PULSE 85–121; RESP 11–26; TEMP 98.2–99.8; O2SAT 98–100
[2017-05-13] MEDS: RESP: ALBUTEROL 2.5 MG/IPRATROPIUM 0.5 MG NEB (SCH) NEB ×4 (03:30→20:51)
[2017-05-13] MEDS: DILTIAZEM HCL 60 MG TAB PO SCH ×4 (05:36→18:27)
[2017-05-13] MEDS: LEVOTHYROXINE SODIUM 125 MCG TAB PO SCH ×2 (05:36→06:00)
[2017-05-13] MEDS: HEPARIN SODIUM - SQ 10,000 UNITS/ML VIAL SQ SCH ×2 (05:38→14:00)
[2017-05-13] MEDS: ARTIFICIAL TEARS OPTH SOLN 15 ML BTL EACH EYE SCH ×3 (05:38→22:00)
[2017-05-13] MEDS: INSULIN ASPART SUPPLEMENTAL SCALE SQ SCH ×3 (06:00→18:00)
[2017-05-13 08:42] LABS: MEAN CELL VOLUME 90.9 FL (80.0-100.0); MEAN CORPUSCULAR HEMOGLOBIN 30.6 PG (27.0-34.0); MEAN CORPUSCULAR HGB CONC 33.6 % (32.0-36.0); PLATELET COUNT 91 TH/MM3 (150-450); RED BLOOD COUNT 1.94 MIL/MM3 (4.00-5.30); RED CELL DISTRIBUTION WIDTH 15.9 % (11.6-17.2); WHITE BLOOD COUNT 7.7 TH/MM3 (4.0-11.0)
[2017-05-13 08:43] LABS: REVIEW FLAG FINAL
[2017-05-13 08:46] LABS: HEMATOCRIT 17.6 % (35.0-46.0)
[2017-05-13] MEDS: GENTAMICIN SULFATE (DIALYSIS USE ONLY) 20 MG/2 ML VIAL OTHER PRN (08:57)
[2017-05-13] MEDS: HEPARIN SODIUM - IV 10,000 UNITS/10 ML VIAL PRN (08:57)
[2017-05-13] MEDS: EPOETIN ALFA 10,000 UNITS/ML VIAL IV PUSH PRN (08:57)
[2017-05-13] MEDS: ALBUMIN 25% INJ 100 ML IV PRN (08:58)
[2017-05-13] MEDS: MULTIVITAMINS/MINERALS THERAPEUTIC TAB PO SCH ×2 (09:32→20:54)
[2017-05-13] MEDS: CALCITRIOL 0.25 MCG CAP PO SCH (09:32)
[2017-05-13] MEDS: LANSOPRAZOLE SOLUTAB 30 MG TAB NG SCH (09:32)
[2017-05-13] MEDS: LACTOBACILLUS ACIDOPHILUS TAB PO SCH ×3 (09:32→18:27)
[2017-05-13] MEDS: CHOLECALCIFEROL (VIT D3) 400 UNIT TAB PO SCH ×2 (09:33→20:55)
[2017-05-13] MEDS: MORPHINE SULFATE 2 MG/ML INJ IV PRN (10:13)
[2017-05-13] MEDS: NITROGLYCERIN 0.2 MG/HR PATCH T-DERMAL SCH (11:42)
[2017-05-13] MEDS: METOPROLOL TARTRATE 50 MG TAB PO SCH ×2 (11:43→20:55)
[2017-05-13] MEDS: CHLORHEXIDINE 0.12% (ORAL KIT) 15 ML CUP MT SCH ×2 (11:44→20:00)
[2017-05-13] MEDS: SODIUM CHLORIDE 0.9% FLUSH 10 ML FLUSH IV FLUSH SCH ×2 (11:44→20:54)
[2017-05-13] MEDS: METOPROLOL TARTRATE 5 MG/5 ML VIAL IV PUSH PRN (12:02)
--- NOTE | 2017-05-13 12:47 | HHI.GIFU ---
Subjective Remarks Awake, in no apparent distress. Orally intubated on mechanical ventilation. Liquid maroon stool in rectal tubing/bag. HH 5.9/17.6, patient has received 3 units PRBCs today. Repeat CBC not done yet. (Jennifer Smith) Objective Vitals I&O Vital Signs Date Time Temp Pulse Resp B/P (MAP) Pulse Ox O2 Delivery O2 Flow Rate FiO2 05/13/17 08:18 99 40 05/13/17 06:00 96 05/13/17 04:26 100 40 05/13/17 04:00 40 05/13/17 04:00 99.7 96 11 111/53 (72) 100 05/13/17 04:00 96 05/13/17 02:00 92 05/13/17 00:14 99 40 05/13/17 00:00 40 05/13/17 00:00 99.2 88 19 120/83 (95) 100 05/13/17 00:00 88 05/12/17 22:00 98 05/12/17 20:06 100 40 05/12/17 20:00 106 05/12/17 20:00 99.6 108 24 122/52 (75) 100 05/12/17 20:00 40 05/12/17 20:00 100 Mechanical Ventilator 40 05/12/17 18:00 99 05/12/17 16:20 100 40 05/12/17 16:00 99 05/12/17 16:00 40 05/12/17 16:00 97.9 112 12 135/63 (87) 100 05/12/17 14:40 100 40 05/12/17 14:00 97 I/O 05/12/17 05/12/17 05/12/17 05/13/17 05/13/17 05/13/17 07:00 15:00 23:00 07:00 15:00 23:00 Intake Total 1744 ml 100 ml 726 ml 1300 ml Output Total 100 ml 150 ml 175 ml 3000 ml Balance 1644 ml -50 ml 551 ml -1700 ml Intake Oral 0 ml IV Total 50 ml 100 ml Tube Feeding 84 ml TPN/PPN 524 ml 258 ml Lipid 126 ml 228 ml Packed Cells 900 ml 1200 ml Blood Product IV Normal Saline Flush 40 ml Tube Irrigant 20 ml Other 100 ml 240 ml Output Urine Total 100 ml 150 ml 75 ml Stool Total 100 ml Hemodialysis 3000 ml Bladder Scan Volume Amount 130 ml # Bowel Movements 4 1 Laboratory Laboratory Tests Test 05/13/17 07:23 White Blood Count 7.7 Red Blood Count 1.94 Hemoglobin 5.9 Hematocrit 17.6 Mean Corpuscular Volume 90.9 Mean Corpuscular Hemoglobin 30.6 Mean Corpuscular Hemoglobin Concent 33.6 Red Cell Distribution Width 15.9 Platelet Count 91 Mean Platelet Volume 9.3 Hematology Comments Date/Time Source Procedure Growth Status 04/19/17 16:54 Blood Peripheral Aerobic Blood Culture - Final NO GROWTH IN 5 DAYS Complete 04/19/17 16:54 Blood Peripheral Anaerobic Blood Culture - Final NO GROWTH IN 5 DAYS Complete 05/06/17 09:30 Stool Stool Stool Occult Blood (LAYLA) - Final HEMOCCULT POSITIVE Complete 05/07/17 16:24 Sputum Endotracheal Gram Stain - Final Complete 05/07/17 16:24 Sputum Endotracheal Sputum Culture - Final MODERATE GROWTH NORMAL RESPIRATORY GORDON Complete 04/19/17 06:15 Urine Clean Catch Urine Culture - Final NO GROWTH Complete Imaging Last Impressions Chest X-Ray 05/11/17 0600 Signed Impressions: Service Date/Time: May 05:49 - CONCLUSION: 1. Cardiomegaly and findings of vascular congestion without overt failure. There has been no significant change when compared to the prior exam. Brian Mcmanus MD Abdomen X-Ray 05/11/17 0600 Signed Impressions: Service Date/Time: May 05:52 - CONCLUSION: 1. Continued colonic ileus. There has been no significant change when compared to the prior exam. Brian Mcmanus MD Catheter Placement X-Ray 05/10/17 0730 Signed Impressions: Service Date/Time: Wednesday, May 10, 2017 13:32 - CONCLUSION: Uncomplicated exchange of Vas-Cath for hemodialysis permacath with fluoroscopic guidance as above. The catheter can be used immediately. Duncan Delgado MD Enema w/Water Soluble 05/02/17 0000 Signed Impressions: Service Date/Time: Tuesday, May 02, 2017 08:02 - CONCLUSION: 1. Limited suboptimal exam. The cecum and right colon could not be opacified despite repeated attempts. 2. Residual stool and mild to moderate diverticulosis. Guevara Crowell MD Abdomen/Pelvis CT 05/02/17 0000 Signed Impressions: Service Date/Time: Tuesday, May 02, 2017 19:58 - CONCLUSION: 1. Nonspecific bowel gas pattern remains with contrast noted in the colon from the recent Gastrografin enema. The cecum remains distended. A rectal catheter is present. 2. No free air or fluid. 3. Small pleural effusions with mild consolidation in the lung bases. 4. Stable small adrenal masses likely representing adenomas. 5. Small nonobstructing left renal calculus. Guevara Crowell MD Renal Ultrasound 04/20/17 0000 Signed Impressions: Service Date/Time: April 15:07 - CONCLUSION: 1. There is no hydronephrosis. 2. Stable 8mm nonobstructing left renal stone. Duncan Avery MD Head CT 04/19/17 0702 Signed Impressions: Service Date/Time: Wednesday, April 19, 2017 07:29 - CONCLUSION: 1. Cerebral white matter hypodensity characteristic of chronic microvascular ischemic disease. 2. No evidence of acute infarct, hemorrhage, mass or edema. Renato Coughlin MD Physical Exam HEENT: Normocephalic; atraumatic; no jaundice. Orotracheally intubated. CHEST: Diminished breath sounds. CARDIAC: Irregular HR, tachy ABDOMEN: Soft, obese, nontender; no hepatosplenomegaly; bowel sounds are present in all four quadrants. Flexiseal with maroon liquid stool in tubing/bag EXTREMITIES: Anasarca SKIN: Normal; no rash; no jaundice. PRODUCT GRADER: Awake. Lethargic. Generalized weakness. (Jennifer Smith) Assessment and Plan Plan ASSESSMENT: - Anemia - Hemoglobin dropped to 5.8 on 05/06. S/P 2 units PRBC on 05/06. Hemoccult positive. Hgb dropped to 6.6 yesterday got 2 x PRBC. Overnight on 05/11 reports of clots via rectum, did have SSE x 2 05/11. Liquid brown stool noted in rectal tube/bag 05/12. Today, liquid maroon stool noted in rectal tubing/bag. HH today 5.9/17.6. Has received 3 units PRBC. EGD 05/11/17 normal. - Abdominal pain, colonic ileus. KUB (04/30/17)----> Gaseous dilatation of colon greatest in the cecal region measuring up to 13 cm. Differential diagnosis includes ileus. A distal colonic obstruction could have a similar appearance. Of note, she has a history of SBO and underwent exploratory laparotomy with lysis of adhesions for abdominal pain, probable small bowel obstruction (01/05/13) with Dr. Tam. S/P Gastrografin Enema (05/02/17)--> Limited suboptimal exam. The cecum and right colon could not be opacified despite repeated attempts. Residual stool and mild to moderate diverticulosis. CT Scan abdomen and pelvis without iv contrast (05/02/17)--> nonspecific bowel gas pattern remains with contrast noted in the colon from recent Gastrografin enema. The cecum remains distended. A rectal catheter. No free air or fluid. Small pleural effusions with mild consolidation in the lung bases. Stable small adrenal masses likely representing adenomas. Small nonobstructing left renal calculus. KUB (05/08/17)---> Persistent mild dilatation of the ascending colon and transverse colon. Findings favor ileus. There are no findings to indicate a small bowel obstruction. When correlating with prior CT it is felt unlikely to represent any colonic obstruction. had 2x SSE now has copious liquid brown stool in bag. KUB 05/11 showing colonic ileus. - Acute on chronic kidney disease with electrolyte abnormalities. S/P Permacath , HD per renal - Respiratory failure, COPD Exacerbation, PNA. S/P Abx. Now intubated - Atrial fibrillation. Digoxin, cardizem, BB - HTN, DM, metabolic encephalopathy, hypothyroidism per attending 05/12/17 - had normal EGD. report of dark blood and clots from rectum. Per RN pt does nto tolerate positions changes, goes into AF with RVR. liquid brown stool in bag. abd not significantly distended. 05/13/17--Maroon stool noted in rectal tubing/bag. HH dropped to 5.9/17.6 today , patient has received 3 unites PRBCs for this. Repeat CBC not completed at this time. PLAN: - NPO - Colonoscopy Monday - Obtain consents - Bowel prep today - Hold Heparin - Monitor HH, transfuse as needed - Monitor labs - Supportive care - Further recommendations to follow based on results of above Patient seen and examined by Dr. Hernández and myself and this note is written on his behalf (Jennifer Smith) Physician Comments Seen and examined, persistent BPR noted. Will schedule colonoscopy in AM. (Benton Hernández MD) Jennifer Smith May 13, 2017 12:47 Benton Hernández MD May 13, 2017 23:01
[2017-05-13] MEDS: CEFEPIME 1000 MG/NS 100 ML IV SCH ×2 (12:55)
--- NOTE | 2017-05-13 13:11 | HHI.NPPN ---
Subjective History of Present Illness Patient is a 82-year-old with sepsis, COPD, intubation, diabetes, acute renal failure and chronic kidney disease. Additional Remarks Patient remain on the vent, Objective Data Data 05/13/17 05/14/17 19:00 07:00 Intake Total 1300 ml Output Total 3000 ml Balance -1700 ml IV Total 100 ml Packed Cells 1200 ml Hemodialysis 3000 ml Vital Signs Date Time Temp Pulse Resp B/P (MAP) Pulse Ox O2 Delivery O2 Flow Rate FiO2 05/13/17 12:12 100 40 05/13/17 08:18 99 40 05/13/17 06:00 96 05/13/17 04:26 100 40 05/13/17 04:00 40 05/13/17 04:00 99.7 96 11 111/53 (72) 100 05/13/17 04:00 96 05/13/17 02:00 92 05/13/17 00:14 99 40 05/13/17 00:00 40 05/13/17 00:00 99.2 88 19 120/83 (95) 100 05/13/17 00:00 88 05/12/17 22:00 98 05/12/17 20:06 100 40 05/12/17 20:00 106 05/12/17 20:00 99.6 108 24 122/52 (75) 100 05/12/17 20:00 40 05/12/17 20:00 100 Mechanical Ventilator 40 05/12/17 18:00 99 05/12/17 16:20 100 40 05/12/17 16:00 99 05/12/17 16:00 40 05/12/17 16:00 97.9 112 12 135/63 (87) 100 05/12/17 14:40 100 40 05/12/17 14:00 97 -: 05/13/17 0723 05/11/17 0553 Physical Exam General Appearance: No Acute Distress, Comfortable, Obese Neck Neck Exam: Neck Supple Pulmonary Resp Exam: Decreased Bases Cardiology CV Exam: Arrhythmia Gastrointestinal/Abdomen GI Exam: Bowel Sounds Hypoactive Extremeties Extremities Exam: Trace Edema Neurologic Neuro Exam: Alert, Awake Psychiatric Psych Exam: Appropriate Responses Assessment/Plan Problem List: (1) Acute on chronic renal insufficiency ICD Codes: N28.9 - Disorder of kidney and ureter, unspecified; N18.9 - Chronic kidney disease, unspecified Status: Acute Plan: Patient is in acute renal failure and had chronic kidney disease ESRD with no recovery no recovery Eliquis on hold and give heparin placed PermCath yesterday may need AVF as well GI and colorectal surgery following the patient. 3 u PRBC for drop in Hb HD done 3 L off GI Bleed GI following HD T,T,S schedule (2) Hypertension ICD Codes: I10 - Hypertension Status: Acute Plan: Blood pressure was low (3) Diabetes ICD Codes: E11.9 - Type 2 diabetes mellitus without complications Status: Acute Plan: Continue to monitor (4) COPD with acute exacerbation ICD Codes: J44.1 - Chronic obstructive pulmonary disease with (acute) exacerbation Plan: extubated Problem Qualifiers (1) Diabetes: Tonja Grewal MD May 13, 2017 13:11
[2017-05-13] MEDS: MICAFUNGIN INJ 100 MG in SODIUM CHLORIDE 0.9% INJ 100 ML IV SCH (14:14)
--- NOTE | 2017-05-13 15:02 | HHI.CCPN ---
Subjective Remarks/Hospital Course The patient is an 82 year old female past with past medical history significant for hypertension, atrial fibrillation, diabetes mellitus, obesity, hypothyroidism, hyperlipidemia, diabetic neuropathy, who was seen in ED 3 days ago bronchospasm. She has COPD/Asthma and restrictive lung disease related to her obesity. Patient was treated for reactive airway disease, given breathing treatments and was discharged on as needed inhalers. Patient was brought in today by her as she was having shortness of breath and on the way to the ED when she slumped over in the car. In the emergency department she showed agonal breathing, she was intubated for airway protection emergently. Patient was given Solu-Medrol and breathing treatments and was placed on the mechanical ventilation. Chest x-ray showed bilateral infiltrates concerning for pneumonia. CT of the head was negative. I evaluated the patient in the ICU. She is on minimal sedation and mild attempts to wake up and intermittently tries to follows commands. She still on high oxygen requirement FiO2 is 60% with a PEEP of 5. I have increased the PEEP to 10. I have started the patient on scheduled IV Solu-Medrol, DuoNeb breathing treatments, cefepime and azithromycin for probable pneumonia. 04/20 Remains intubated, off sedation following commands. Currently FiO2 had been weaned to 40%. Urine output 950 ml since admission. Start SBT, Bumex 1 mg IV x1. 04/21: Tolerating CPAP better today, Appears calm following commands. UO adequate, though creat increasing. Cultures remain negative 04/22: Extubated yesterday required BiPAP overnight. Currently on nasal cannula slightly tachypneic but able to talk in full sentences maintaining oxygen saturation 04/23: Breathing more comfortably today on nasal cannula. Daughter At the bedside. Urine output adequate, creatinine has slightly improved 05/05: Rapid response team was called due to patient's altered mental status and hypoxemia. She was immediately transferred to ICU with a blood gas showing severe hypercarbic acidosis and was immediately intubated. She also became slightly hypotensive requiring a central line placement and initiation of vasopressor therapy Subjective 05/06: Awake and alert but not following commands. Nods head but inappropriately to questions. CAM ICU positive. Sedation is currently been held. Off norepinephrine. Currently nothing by mouth. 05/07: Tmax 100.4 Patient awake following commands. Sedation off a greater than 24-hour. Discussion of CODE STATUS with patient and daughter, patient states she requests to be full code explanation provided in detail. CODE STATUS changed to full code. Sputum cultures pending. Empiric antibiotics initiated Levaquin and cefepime. Patient continues on CPAP trials. The patient lasted 13 hours yesterday on CPAP. Plan for Vas-Cath placement by interventional radiology scheduled for 05/10. 05/08: Patient continues on CPAP trials, alert and responsive, denies pain. Plan for obtaining SBT parameters today a successful will extubate. Sputum culture revealed initial preliminary results of budding yeasts, micafungin added to medication regimen. Patient's scheduled by IR placement of Vas-Cath in a.m.. Patient continues on Reglan and nothing by mouth status per GI, large amounts of diarrhea/loose stools, plan for KUB this afternoon. 05/09: Tmax 99.0. The patient tolerated CPAP trials continuation overnight, approximately 24 hours. SBT performed last evening,WNL. Patient remains awake , alert and interactive. The patient is scheduled for permacath placement via IR this a.m. to be followed by dialysis. Plan for SBT trial postdialysis with a trial of extubation. Throughout the night the patient became tachycardic, with systolic blood pressure greater than 160s. Metoprolol resumed. Patient complained of throat pain early this a.m. relieved with Tylenol. GI following, obtained repeat KUB yesterday we'll await recommendations. Plan to discontinue IV fluids and initiate PPN. 05/10: Afebrile. Patient underwent IHD with 3 L fluid removal yesterday. Plan for permacath placement today. Patient noted to be continued hypertensive, Cardizem home medication resumed. Patient underwent SBT trials postdialysis yesterday with subsequent failure unable to extubate. Plan for repeat SBT parameters today, with anticipation of possible extubation. 05/11: Remains orally intubated on mechanical ventilation. EGD unremarkable 05/12: Remains orally intubated on mechanical ventilation. Had chest pain yesterday with EKG changes in the lateral leads. Troponin borderline 0.51. Hemoglobin 6.6 for which 2 units PRBCs were transfused yesterday. Patient was noted to have rectal bleeding this morning for which GI was notified. 05/13: Hemoglobin 5.7. Patient to receive 3 units packed red blood cells with dialysis today. Last evening the patient continued into A. fib heart rate in the 130s received 1 dose of 0.5 mg of morphine, for chest pain during the night , PRN Beta Blockers. Continues with Nitropaste.Patient denies any abdominal pain. Tentative plan for colonoscopy tomorrow with Dr. Hernández. Objective Vital Signs Date Time Temp Pulse Resp B/P (MAP) Pulse Ox O2 Delivery O2 Flow Rate FiO2 05/13/17 12:12 100 40 05/13/17 06:00 96 05/13/17 04:00 99.7 11 111/53 (72) 05/12/17 20:00 Mechanical Ventilator 05/11/17 19:00 6.00 Intake and Output 05/13/17 05/13/17 05/14/17 08:00 16:00 00:00 Intake Total 726 ml 1300 ml Output Total 175 ml 3000 ml Balance 551 ml -1700 ml Result Diagram: 05/13/17 0723 05/11/17 0553 Imaging Last Impressions Chest X-Ray 05/08/17 0600 Signed Impressions: Service Date/Time: Monday, May 08, 2017 03:23 - CONCLUSION: 1. Cardiomegaly and findings of vascular congestion without overt failure. There has been no significant change when compared to the prior exam. Brian Mcmanus MD Abdomen X-Ray 05/08/17 0000 Signed Impressions: Service Date/Time: Monday, May 08, 2017 15:33 - CONCLUSION: Persistent mild dilatation of the ascending colon and transverse colon. Findings favor ileus. There are no findings to indicate small bowel obstruction. When correlating with prior CT it is felt unlikely to represent any colonic obstruction. Duncan Avery MD Enema w/Water Soluble 05/02/17 0000 Signed Impressions: Service Date/Time: Tuesday, May 02, 2017 08:02 - CONCLUSION: 1. Limited suboptimal exam. The cecum and right colon could not be opacified despite repeated attempts. 2. Residual stool and mild to moderate diverticulosis. Guevara Crowell MD Abdomen/Pelvis CT 05/02/17 0000 Signed Impressions: Service Date/Time: Tuesday, May 02, 2017 19:58 - CONCLUSION: 1. Nonspecific bowel gas pattern remains with contrast noted in the colon from the recent Gastrografin enema. The cecum remains distended. A rectal catheter is present. 2. No free air or fluid. 3. Small pleural effusions with mild consolidation in the lung bases. 4. Stable small adrenal masses likely representing adenomas. 5. Small nonobstructing left renal calculus. Guevara Crowell MD Catheter Placement X-Ray 05/01/17 0000 Signed Impressions: Service Date/Time: Monday, May 01, 2017 11:45 - CONCLUSION: Uncomplicated line placement as above. Brian Mcmanus MD Renal Ultrasound 04/20/17 0000 Signed Impressions: Service Date/Time: April 15:07 - CONCLUSION: 1. There is no hydronephrosis. 2. Stable 8mm nonobstructing left renal stone. Duncan Avery MD Head CT 04/19/17 0702 Signed Impressions: Service Date/Time: Wednesday, April 19, 2017 07:29 - CONCLUSION: 1. Cerebral white matter hypodensity characteristic of chronic microvascular ischemic disease. 2. No evidence of acute infarct, hemorrhage, mass or edema. Renato Coughlin MD Last Impressions Chest X-Ray 05/06/17 0000 Signed Impressions: Service Date/Time: Saturday, May 06, 2017 03:22 - CONCLUSION: Left IJ central venous catheter courses superiorly in the region of the SVC with the tip in the region of distal right internal jugular vein or right brachiocephalic vein. This could be retracted 5 cm. No evidence of pneumothorax. Hussain Green MD Abdomen X-Ray 05/04/17 0600 Signed Impressions: Service Date/Time: May 06:03 - CONCLUSION: Contrast through to the rectum. Basically stable dilatation of the proximal colon Duncan Delgado MD Enema w/Water Soluble 05/02/17 0000 Signed Impressions: Service Date/Time: Tuesday, May 02, 2017 08:02 - CONCLUSION: 1. Limited suboptimal exam. The cecum and right colon could not be opacified despite repeated attempts. 2. Residual stool and mild to moderate diverticulosis. Guevara Crowell MD Abdomen/Pelvis CT 05/02/17 0000 Signed Impressions: Service Date/Time: Tuesday, May 02, 2017 19:58 - CONCLUSION: 1. Nonspecific bowel gas pattern remains with contrast noted in the colon from the recent Gastrografin enema. The cecum remains distended. A rectal catheter is present. 2. No free air or fluid. 3. Small pleural effusions with mild consolidation in the lung bases. 4. Stable small adrenal masses likely representing adenomas. 5. Small nonobstructing left renal calculus. Guevara Crowell MD Catheter Placement X-Ray 05/01/17 0000 Signed Impressions: Service Date/Time: Monday, May 01, 2017 11:45 - CONCLUSION: Uncomplicated line placement as above. Brian Mcmanus MD Renal Ultrasound 04/20/17 0000 Signed Impressions: Service Date/Time: April 15:07 - CONCLUSION: 1. There is no hydronephrosis. 2. Stable 8mm nonobstructing left renal stone. Duncan Avery MD Head CT 04/19/17 0702 Signed Impressions: Service Date/Time: Wednesday, April 19, 2017 07:29 - CONCLUSION: 1. Cerebral white matter hypodensity characteristic of chronic microvascular ischemic disease. 2. No evidence of acute infarct, hemorrhage, mass or edema. Renato Coughlin MD Objective Remarks GEN: 82-year-old female, currently orotracheally intubated resting comfortably in no acute distress, denies chest pain at this time Head - normocephalic atraumatic. ENT: Oropharynx without erythema access. Orotracheally intubated. Neck: Right IJ vasc catheter catheter C/D/I and intact without erythema or drainage. Cardiovascular: Sinus tachycardia S1, S2. No S4. Without murmur. Lungs: Diminished breath sounds bilaterally. Mild expiratory inspiratory wheezing Abdomen: Abdomen morbidly obese, soft nontender. No guarding, rebound, or rigidity. Normoactive bowel sounds. [place]ign[place] continuous liquid stool Extremities: 1+ edema/anasarca Neurologic: RASS 0. Pupils are symmetrical 3 mm and reactive to light bilaterally. Patient following commands communicating by nodding of head appropriately. Moves all 4 extremity spontaneously. Procedures 05/10 - IR for permacath Date of Insertion: May 05, 2017 Date of Removal: May 07, 2017 Line: Central Venous Catheter Side: Left Location: Jugular A/P Assessment and Plan NEURO/PSYCH: Acute metabolic encephalopathy-resolved - Propofol for for vent synchrony while intubated,Fentanyl discontinued. Patient currently has propofol on hold continuous CPAP trials denies discomfort - Goal of RASS -2, Currently RASS 0 - Daily sedation vacation - CT of the head negative for acute findings, holding gabapentin - Morphine when necessary pain (held) receiving only as needed dosing, while continuing CPAP - Tylenol 650 mg every 6 hours when necessary for pain RESP: Acute hypoxemic respiratory failure Pneumonia COPD with exacerbation Restrictive lung disease - Extubated 04/21. Reintubated 05/05 - PRVC 18/500/// Ventilator bundle -DuoNebs Continues on CPAP trials-14/11 FIO2 .40%. 05/07 SBT NIF -30/ FVC 1.04 RSBI 30 with + cuff leak, chest x-ray 05/07 show pulmonary vascular congestion but no overt failure 05/09 SBT parameters failed - RSBI 95 , VT 240 NIF -31 FVC 390 Plan for repeat SBT post dialysis with a trial of extubation (ETT day 9)- discussion with family regarding possibility of tracheostomy, tentative plan for Monday 05/07 sputum culture- budding yeast, Micafungin (day 7) CV: Chronic A. fib Transient hypotension Hypertension Chest pain -Goal to maintain MAP greater than equal to 65 - Atrial fibrillation- HR > 100. Metoprolol 50 mg twice a day. Lisinopril patient's home med has been discontinued in the setting of CKD. -Holding Apixaban currently. Continue subcutaneous heparin - Anticoagulation hold for anemia.. Resume when clinically indicated -Continue diltiazem 60 mg TID , metoprolol 50 mg twice a day. 05/07- digoxin level 1.3 . Hold for now, janell in the setting of ARF. Last documented level 1.8 - normal saline at 42 cc /hr discontinued, PPN @ 42cc/hr started on 05/10 - On atorvastatin 20 mg daily for dyslipidemia. - 05/11 cardiology consult noted. Starting nitropatch 0.2mg/day on 05/12, Hold ASA till GI clears in v/o rectal bleeding. D/W Dr. Cuevas -If Afib continues at uncontrolled rate post blood transfusion, may give dose of Digoxin, D/W Dr. Cuveas GI: Colonic ileus Gastrografin enema 05/02. Proximal colonic dilatation. Patient is having bowel movements. No abdominal pain Famotidine for GI prophylaxis On metoclopramide 5 mg IV every 8 hours for colonic ileus per GI. Discontinued 05/10. Follow-up with GI for further recommendations - 05/11 EGD 05/08 repeat KUB-mildly dilated ascending and transverse colon. Distention unchanged, but transverse colon distally more dilated 05/09 PPN 42cc/hr, and lipids Colonoscopy planned for 05/14 : Acute on chronic kidney disease Secondary hyperparathyroidism - Nephrology -Dr. Grewal - Monitor renal function closely. Nelson catheter. UOP last 24 hours- 580cc, IHD 05/09 3 L removed - Hemodialysis per nephrology. Currently on Monday/ and Monday - IR for permacath 05/10, obtained postdialysis labs - Continue Calciferol 0.25 mcg daily for secondary hyperparathyroidism ID: Severe sepsis resolved Pneumonia - Blood sputum and urine culture, all negative to date - Empiric cefepime and azithromycin for 7-10 days course completed - Sputum culture 05/07 budding yeast-micafungin day 7 HEME: Leukocytosis Normocytic anemia Acute blood loss anemia - Monitor CBC, CMP, INR -Holding apixaban -05/13 Transfuse 3 units packed red blood cells with dialysis ENDO: Hypothyroidism Type 2 diabetes - Continue levothyroxine at 125 g daily, sliding-scale insulin - SSI with every 6 hours Accu-Cheks on novolog to maintain euglycemia. Holding insulin detemir 10 units twice a day while nothing by mouth MSK: OA/OP Continue cholecalciferol 400 units twice a day PT evaluate and treat PT requested functional maintenance daily PROPH: - Bilateral lower extremity SCDs, heparin SQ placed on hold 05/13 LINES: -Left IJ central line placed 05/05-05/07. right IJ-brachiocephalic Critical Care: This patient remains critically ill with one or more organ systems which are or may become a threat to life. I have spent in excess of 31 minutes discontinuously in the care and management of this patient. This time is exclusive of procedures, and includes, but is not limited to, evaluation of the patient, review of the medical record, discussions with family, consultants, nursing staff, or respiratory therapy, and documentation in the medical record. 05/07: Discussed with Vitaliy Sales and daughter. Full CODE STATUS. All family members acknowledge understanding and present in room during discussion. CODE STATUS will be changed. Palliative care consulted as well for goals of care. 05/08: Palliative of care meeting, patient instituted daughter as primary POA. 05/13: Extensive discussion with POA's son and daughter, and regarding need for blood transfusion, plan for colonoscopy tomorrow. Post colonoscopy, will attempt CPAP and SBT parameters,if unsuccessful, tentative plan for tracheostomy scheduled for Wednesday 05/16 Physician Flavia Hernandez MD May 13, 2017 15:02
[2017-05-13 15:51] LABS: HEMATOCRIT 27.2 % (35.0-46.0)
[2017-05-13 15:52] LABS: REVIEW FLAG FINAL
[2017-05-13] MEDS ORDERED: PEG (High)/E-LYTE SOLN 4000 ML BTL PO ONE (16:00)
[2017-05-13] MEDS: INSULIN DETEMIR 100 UNITS/ML VIAL SQ SCH ×2 (20:51→21:00)
[2017-05-13] MEDS: FAT EMULSION 20% INJ 250 ML (@10 mls/hr) IV SCH (20:51)
[2017-05-13] MEDS: SODIUM CHLORIDE 23.4% INJ 5.5 MEQ, SODIUM ACETATE INJ 29.5 MEQ, POTASSIUM CHLORIDE INJ ... IV SCH ×7 (20:54)
[2017-05-13] MEDS: ATORVASTATIN 20 MG TAB PO SCH (20:55)
[2017-05-13] MEDS: REMOVE OLD PATCH T-DERMAL SCH (21:00)
[2017-05-13 22:05] LABS: REVIEW FLAG FINAL
[2017-05-14] VITALS (18 sets, daily range): BP systolic 111–137; BP diastolic 55–74; PULSE 78–98; RESP 16–20; TEMP 98.8–100.8; O2SAT 95–100
[2017-05-14] MEDS: DILTIAZEM HCL 60 MG TAB PO SCH ×5 (00:35→23:37)
[2017-05-14] MEDS: INSULIN ASPART SUPPLEMENTAL SCALE SQ SCH ×4 (00:59→18:00)
[2017-05-14] MEDS: RESP: ALBUTEROL 2.5 MG/IPRATROPIUM 0.5 MG NEB (SCH) NEB ×4 (03:32→20:41)
[2017-05-14 03:49] LABS: AUTOMATED NEUTROPHIL # 5.6 TH/MM3 (1.8-7.7); BASOPHIL % 0.4 % (0.0-2.0); EOSINOPHIL % 0.8 % (0.0-4.0); HEMATOCRIT 27.3 % (35.0-46.0); LYMPHOCYTE # 0.1 TH/MM3 (1.0-4.8); MEAN CELL VOLUME 89.1 FL (80.0-100.0); MEAN CORPUSCULAR HEMOGLOBIN 31.1 PG (27.0-34.0); MEAN CORPUSCULAR HGB CONC 34.9 % (32.0-36.0); MONO % 10.7 % (0.0-8.0); NEUT % 86.1 % (16.0-70.0); PLATELET COUNT 86 TH/MM3 (150-450); RED BLOOD COUNT 3.06 MIL/MM3 (4.00-5.30); WHITE BLOOD COUNT 6.5 TH/MM3 (4.0-11.0)
[2017-05-14 03:57] LABS: HEMO FLAGS AUTO DIFF
[2017-05-14] MEDS: CHLORHEXIDINE GLUCONATE 2 % 1 PACK (2 CLOTHS) TOP SCH (04:00)
[2017-05-14 04:24] LABS: INTERNATIONAL NORMALIZED RATIO 1.1 RATIO; PROTHROMBIN TIME - PATIENT 12.3 SEC (9.8-11.6)
[2017-05-14 04:34] LABS: MAGNESIUM 1.7 MG/DL (1.5-2.5)
[2017-05-14 04:37] LABS: POTASSIUM 2.7 MEQ/L (3.5-5.1)
[2017-05-14] MEDS: LEVOTHYROXINE SODIUM 125 MCG TAB PO SCH (05:16)
[2017-05-14] MEDS: ARTIFICIAL TEARS OPTH SOLN 15 ML BTL EACH EYE SCH ×3 (05:16→21:29)
[2017-05-14 05:21] LABS: BANDS 14 % (0-6); CORRECTED NUCLEATED RBC 7 /100 WBC (0-0); NEUTROPHIL # MANUAL DIFF 6.2 TH/MM3 (1.8-7.7); OVALOCYTES 1+ (NORMAL); PLATELET ESTIMATE SMEAR LOW (NORMAL); PLATELET MORPHOLOGY NORMAL (NORMAL); POLYS (SEG NEUTROPHILS) 81 % (16-70); SCAN/DIFF FINAL DIFF MANUAL; WBC DIFF SAMPLE 100
[2017-05-14] MEDS: POTASSIUM CHLOR 20 MEQ PREMIX 100 ML IV SCH ×5 (05:30→23:37)
[2017-05-14] MEDS ORDERED: POTASSIUM PHOSPHATE INJ 30 MMOL in SODIUM CHLOR 0.9% 250 ML INJ 250 ML IV ONE (07:00)
--- NOTE | 2017-05-14 07:00 | HHI.CCPN ---
Subjective Remarks/Hospital Course The patient is an 82 year old female past with past medical history significant for hypertension, atrial fibrillation, diabetes mellitus, obesity, hypothyroidism, hyperlipidemia, diabetic neuropathy, who was seen in ED 3 days ago bronchospasm. She has COPD/Asthma and restrictive lung disease related to her obesity. Patient was treated for reactive airway disease, given breathing treatments and was discharged on as needed inhalers. Patient was brought in today by her as she was having shortness of breath and on the way to the ED when she slumped over in the car. In the emergency department she showed agonal breathing, she was intubated for airway protection emergently. Patient was given Solu-Medrol and breathing treatments and was placed on the mechanical ventilation. Chest x-ray showed bilateral infiltrates concerning for pneumonia. CT of the head was negative. I evaluated the patient in the ICU. She is on minimal sedation and mild attempts to wake up and intermittently tries to follows commands. She still on high oxygen requirement FiO2 is 60% with a PEEP of 5. I have increased the PEEP to 10. I have started the patient on scheduled IV Solu-Medrol, DuoNeb breathing treatments, cefepime and azithromycin for probable pneumonia. 04/20 Remains intubated, off sedation following commands. Currently FiO2 had been weaned to 40%. Urine output 950 ml since admission. Start SBT, Bumex 1 mg IV x1. 04/21: Tolerating CPAP better today, Appears calm following commands. UO adequate, though creat increasing. Cultures remain negative 04/22: Extubated yesterday required BiPAP overnight. Currently on nasal cannula slightly tachypneic but able to talk in full sentences maintaining oxygen saturation 04/23: Breathing more comfortably today on nasal cannula. Daughter At the bedside. Urine output adequate, creatinine has slightly improved 05/05: Rapid response team was called due to patient's altered mental status and hypoxemia. She was immediately transferred to ICU with a blood gas showing severe hypercarbic acidosis and was immediately intubated. She also became slightly hypotensive requiring a central line placement and initiation of vasopressor therapy Subjective 05/06: Awake and alert but not following commands. Nods head but inappropriately to questions. CAM ICU positive. Sedation is currently been held. Off norepinephrine. Currently nothing by mouth. 05/07: Tmax 100.4 Patient awake following commands. Sedation off a greater than 24-hour. Discussion of CODE STATUS with patient and daughter, patient states she requests to be full code explanation provided in detail. CODE STATUS changed to full code. Sputum cultures pending. Empiric antibiotics initiated Levaquin and cefepime. Patient continues on CPAP trials. The patient lasted 13 hours yesterday on CPAP. Plan for Vas-Cath placement by interventional radiology scheduled for 05/10. 05/08: Patient continues on CPAP trials, alert and responsive, denies pain. Plan for obtaining SBT parameters today a successful will extubate. Sputum culture revealed initial preliminary results of budding yeasts, micafungin added to medication regimen. Patient's scheduled by IR placement of Vas-Cath in a.m.. Patient continues on Reglan and nothing by mouth status per GI, large amounts of diarrhea/loose stools, plan for KUB this afternoon. 05/09: Tmax 99.0. The patient tolerated CPAP trials continuation overnight, approximately 24 hours. SBT performed last evening,WNL. Patient remains awake , alert and interactive. The patient is scheduled for permacath placement via IR this a.m. to be followed by dialysis. Plan for SBT trial postdialysis with a trial of extubation. Throughout the night the patient became tachycardic, with systolic blood pressure greater than 160s. Metoprolol resumed. Patient complained of throat pain early this a.m. relieved with Tylenol. GI following, obtained repeat KUB yesterday we'll await recommendations. Plan to discontinue IV fluids and initiate PPN. 05/10: Afebrile. Patient underwent IHD with 3 L fluid removal yesterday. Plan for permacath placement today. Patient noted to be continued hypertensive, Cardizem home medication resumed. Patient underwent SBT trials postdialysis yesterday with subsequent failure unable to extubate. Plan for repeat SBT parameters today, with anticipation of possible extubation. 05/11: Remains orally intubated on mechanical ventilation. EGD unremarkable 05/12: Remains orally intubated on mechanical ventilation. Had chest pain yesterday with EKG changes in the lateral leads. Troponin borderline 0.51. Hemoglobin 6.6 for which 2 units PRBCs were transfused yesterday. Patient was noted to have rectal bleeding this morning for which GI was notified. 05/13: Hemoglobin 5.7. Patient to receive 3 units packed red blood cells with dialysis today. Last evening the patient continued into A. fib heart rate in the 130s received 1 dose of 0.5 mg of morphine, for chest pain during the night , PRN Beta Blockers. Continues with Nitropaste. Patient denies abdominal pain. Tentative plan for colonoscopy tomorrow with Dr. Hernández. 05/14: Tmax 100.2. Patient received GoLYTELY in for scheduled colonoscopy today. Patient had 2 L stool output overnight, maroon-colored. Repeat hemoglobin performed stable 9.5. A. fib now rate controlled. Patient was noted to have hematuria during the night, heparin SQ prophylaxis was discontinued yesterday secondary to bleeding however the patient receives heparin during the dialysis. Fibrinogen and HIT panel labs pending. Reconsulted colorectal surgery, initial consult placed 05/01/[address] Tam. Patient denies abdominal pain. Objective Vital Signs Date Time Temp Pulse Resp B/P (MAP) Pulse Ox O2 Delivery O2 Flow Rate FiO2 05/14/17 06:00 79 05/14/17 04:06 95 40 05/14/17 04:00 100.2 18 137/62 (87) 05/13/17 19:00 Mechanical Ventilator 05/11/17 19:00 6.00 Intake and Output 05/14/17 05/14/17 05/15/17 08:00 16:00 00:00 Intake Total 2120 ml Output Total 2300 ml Balance -180 ml Result Diagram: 05/14/17 0340 05/14/17 0340 Imaging Last Impressions Chest X-Ray 05/08/17 0600 Signed Impressions: Service Date/Time: Monday, May 08, 2017 03:23 - CONCLUSION: 1. Cardiomegaly and findings of vascular congestion without overt failure. There has been no significant change when compared to the prior exam. Brian Mcmanus MD Abdomen X-Ray 05/08/17 0000 Signed Impressions: Service Date/Time: Monday, May 08, 2017 15:33 - CONCLUSION: Persistent mild dilatation of the ascending colon and transverse colon. Findings favor ileus. There are no findings to indicate small bowel obstruction. When correlating with prior CT it is felt unlikely to represent any colonic obstruction. Duncan Avery MD Enema w/Water Soluble 05/02/17 0000 Signed Impressions: Service Date/Time: Tuesday, May 02, 2017 08:02 - CONCLUSION: 1. Limited suboptimal exam. The cecum and right colon could not be opacified despite repeated attempts. 2. Residual stool and mild to moderate diverticulosis. Guevara Crowell MD Abdomen/Pelvis CT 05/02/17 0000 Signed Impressions: Service Date/Time: Tuesday, May 02, 2017 19:58 - CONCLUSION: 1. Nonspecific bowel gas pattern remains with contrast noted in the colon from the recent Gastrografin enema. The cecum remains distended. A rectal catheter is present. 2. No free air or fluid. 3. Small pleural effusions with mild consolidation in the lung bases. 4. Stable small adrenal masses likely representing adenomas. 5. Small nonobstructing left renal calculus. Guevara Crowell MD Catheter Placement X-Ray 05/01/17 0000 Signed Impressions: Service Date/Time: Monday, May 01, 2017 11:45 - CONCLUSION: Uncomplicated line placement as above. Brian Mcmanus MD Renal Ultrasound 04/20/17 0000 Signed Impressions: Service Date/Time: April 15:07 - CONCLUSION: 1. There is no hydronephrosis. 2. Stable 8mm nonobstructing left renal stone. Duncan Avery MD Head CT 04/19/17 0702 Signed Impressions: Service Date/Time: Wednesday, April 19, 2017 07:29 - CONCLUSION: 1. Cerebral white matter hypodensity characteristic of chronic microvascular ischemic disease. 2. No evidence of acute infarct, hemorrhage, mass or edema. Renato Coughlin MD Last Impressions Chest X-Ray 05/06/17 0000 Signed Impressions: Service Date/Time: Saturday, May 06, 2017 03:22 - CONCLUSION: Left IJ central venous catheter courses superiorly in the region of the SVC with the tip in the region of distal right internal jugular vein or right brachiocephalic vein. This could be retracted 5 cm. No evidence of pneumothorax. Hussain Green MD Abdomen X-Ray 05/04/17 0600 Signed Impressions: Service Date/Time: May 06:03 - CONCLUSION: Contrast through to the rectum. Basically stable dilatation of the proximal colon Duncan Delgado MD Enema w/Water Soluble 05/02/17 0000 Signed Impressions: Service Date/Time: Tuesday, May 02, 2017 08:02 - CONCLUSION: 1. Limited suboptimal exam. The cecum and right colon could not be opacified despite repeated attempts. 2. Residual stool and mild to moderate diverticulosis. Guevara Crowell MD Abdomen/Pelvis CT 05/02/17 0000 Signed Impressions: Service Date/Time: Tuesday, May 02, 2017 19:58 - CONCLUSION: 1. Nonspecific bowel gas pattern remains with contrast noted in the colon from the recent Gastrografin enema. The cecum remains distended. A rectal catheter is present. 2. No free air or fluid. 3. Small pleural effusions with mild consolidation in the lung bases. 4. Stable small adrenal masses likely representing adenomas. 5. Small nonobstructing left renal calculus. Guevara Crowell MD Catheter Placement X-Ray 05/01/17 0000 Signed Impressions: Service Date/Time: Monday, May 01, 2017 11:45 - CONCLUSION: Uncomplicated line placement as above. Brian Mcmanus MD Renal Ultrasound 04/20/17 0000 Signed Impressions: Service Date/Time: April 15:07 - CONCLUSION: 1. There is no hydronephrosis. 2. Stable 8mm nonobstructing left renal stone. Duncan Avery MD Head CT 04/19/17 0702 Signed Impressions: Service Date/Time: Wednesday, April 19, 2017 07:29 - CONCLUSION: 1. Cerebral white matter hypodensity characteristic of chronic microvascular ischemic disease. 2. No evidence of acute infarct, hemorrhage, mass or edema. Renato Coughlin MD Objective Remarks GEN: 82-year-old female, currently orotracheally intubated resting comfortably in no acute distress, denies chest pain and abdominal at this time Head - normocephalic atraumatic. ENT: Oropharynx without erythema access. Orotracheally intubated. Neck: Right IJ vasc catheter catheter C/D/I and intact without erythema or drainage. Cardiovascular: Telemetry rate controlled atrial fib HR 80's S1, S2. No S4. Without murmur. Lungs: Diminished breath sounds bilaterally. Mild expiratory inspiratory wheezing Abdomen: Abdomen morbidly obese, soft nontender. No guarding, rebound, or rigidity. Normoactive bowel sounds. Dignishield continuous liquid maroon colored stool Extremities: 1+ edema/anasarca Neurologic: RASS 0. Pupils are symmetrical 3 mm and reactive to light bilaterally. Patient following commands communicating by nodding of head appropriately. Communicates in writing . Moves all 4 extremity spontaneously. Procedures 05/10 - IR for permacath 05/11 EGD Date of Insertion: May 05, 2017 Date of Removal: May 07, 2017 Line: Central Venous Catheter Side: Left Location: Jugular A/P Assessment and Plan NEURO/PSYCH: Acute metabolic encephalopathy-resolved - Propofol for for vent synchrony while intubated,Fentanyl discontinued. Patient currently has propofol on hold continuous CPAP trials denies discomfort - Goal of RASS -2, Currently RASS 0 - Daily sedation vacation - CT of the head negative for acute findings, holding gabapentin - Morphine when necessary pain (held) receiving only as needed dosing, while continuing CPAP - Tylenol 650 mg every 6 hours when necessary for pain RESP: Acute hypoxemic respiratory failure Pneumonia COPD with exacerbation Restrictive lung disease Failure to wean - Extubated 04/21. Reintubated 05/05 - PRVC 18/500//11/03 Ventilator bundle -DuoNebs Continues on CPAP trials-14/11 FIO2 .40%. 05/07 SBT NIF -30/ FVC 1.04 RSBI 30 with + cuff leak, chest x-ray 05/07 show pulmonary vascular congestion but no overt failure 05/09 SBT parameters failed - RSBI 95 , VT 240 NIF -31 FVC 390 Plan for repeat SBT post dialysis with a trial of extubation (ETT day 10)- discussion with family regarding possibility of tracheostomy, tentative plan for Monday 05/07 sputum culture- budding yeast, Micafungin (day 7), discontinued CV: Chronic A. fib- rate controlled Transient hypotension Hypertension Chest pain- resolved -Goal to maintain MAP greater than equal to 65 - Atrial fibrillation- HR > 100. Metoprolol 50 mg twice a day. Lisinopril patient's home med has been discontinued in the setting of CKD. -Holding Apixaban currently. Continue subcutaneous heparin - Anticoagulation hold for anemia.. Resume when clinically indicated -Continue diltiazem 60 mg TID , metoprolol 50 mg twice a day. 05/07- digoxin level 1.3 . Hold for now, janell in the setting of ARF. Last documented level 1.8 - normal saline at 42 cc /hr discontinued, PPN @ 42cc/hr started on 05/10 - On atorvastatin 20 mg daily for dyslipidemia. - 05/11 cardiology consult noted. Starting nitropatch 0.2mg/day on 05/12, Hold ASA till GI clears in v/o rectal bleeding. D/W Dr. Cuevas -05/13 If Afib continues at uncontrolled rate post blood transfusion, may give dose of Digoxin, D/W Dr. Cuevas GI: Colonic ileus Melena GI Bleed Gastrografin enema 05/02. Proximal colonic dilatation. Patient is having bowel movements. No abdominal pain Famotidine for GI prophylaxis On metoclopramide 5 mg IV every 8 hours for colonic ileus per GI. Discontinued 05/10. Follow-up with GI for further recommendations - 05/11 EGD - normal esophagus, normal stomach, normal duodenal mucosa to the second portion 05/08 repeat KUB-mildly dilated ascending and transverse colon. Distention unchanged, but transverse colon distally more dilated 05/09 PPN 42cc/hr, and lipids Colonoscopy planned for 05/14 Colorectal surgery initially consulted 05/01/17, Dr. Tam. Reconsulted colorectal surgery : Acute on chronic kidney disease Secondary hyperparathyroidism Hematuria - Nephrology -Dr. Grewal - Monitor renal function closely. Nelson catheter. UOP last 24 hours- 130 cc, IHD 05/13-3 L removed - Hemodialysis per nephrology. Currently on Monday/ and Monday - IR for permacath 05/10, obtained postdialysis labs - Continue Calciferol 0.25 mcg daily for secondary hyperparathyroidism ID: Severe sepsis Pneumonia Bandemia - Blood sputum and urine culture, all negative to date - Empiric cefepime and azithromycin for 7-10 days course completed - Sputum culture 05/07 budding yeast-micafungin day 7, discontinued -05/14 ID consulted- Bands 14% -Obtain pro-calcitonin level HEME: Leukocytosis-resolved Normocytic anemia Acute blood loss anemia Thrombocytopenia - Monitor CBC, CMP, INR -Holding apixaban -05/13 Transfuse 3 units packed red blood cells with dialysis, 05/12 patient received 1 unit PRBC -Monitor H&H every 12 hours. -Obtain fibrinogen level -Obtain HIT panel ENDO: Hypothyroidism Type 2 diabetes - Continue levothyroxine at 125 g daily, sliding-scale insulin - SSI with every 6 hours Accu-Cheks on novolog to maintain euglycemia. Continue insulin detemir 10 units twice a day , a chin currently on PPN MSK: OA/OP Critical illness polyneuropathy Continue cholecalciferol 400 units twice a day PT evaluate and treat PT requested functional maintenance daily PROPH: - Bilateral lower extremity SCDs, heparin SQ placed on hold 05/13 LINES: -Left IJ central line placed 05/05-05/07. right IJ-brachiocephalic Critical Care: This patient remains critically ill with one or more organ systems which are or may become a threat to life. I have spent in excess of 30 minutes discontinuously in the care and management of this patient. This time is exclusive of procedures, and includes, but is not limited to, evaluation of the patient, review of the medical record, discussions with family, consultants, nursing staff, or respiratory therapy, and documentation in the medical record. 05/07: Discussed with Vitaliy Sales and daughter. Full CODE STATUS. All family members acknowledge understanding and present in room during discussion. CODE STATUS will be changed. Palliative care consulted as well for goals of care. 05/08: Palliative of care meeting, patient instituted daughter as primary POA. 05/13: Extensive discussion with POA's son and daughter, and regarding need for blood transfusion, plan for colonoscopy tomorrow. Post colonoscopy, will attempt CPAP and SBT parameters,if unsuccessful, tentative plan for tracheostomy scheduled for Wednesday 05/16 Physician Flavia Hernandez MD May 14, 2017 07:00
[2017-05-14] MEDS: SODIUM CHLORIDE 0.9% FLUSH 10 ML FLUSH IV FLUSH SCH ×2 (09:00→21:00)
[2017-05-14] MEDS: CEFEPIME 1000 MG/NS 100 ML IV SCH ×2 (09:07)
[2017-05-14] MEDS: METOPROLOL TARTRATE 50 MG TAB PO SCH ×2 (09:08→21:29)
[2017-05-14] MEDS: LANSOPRAZOLE SOLUTAB 30 MG TAB NG SCH (09:08)
[2017-05-14] MEDS: MULTIVITAMINS/MINERALS THERAPEUTIC TAB PO SCH ×2 (09:08→21:00)
[2017-05-14] MEDS: INSULIN DETEMIR 100 UNITS/ML VIAL SQ SCH ×2 (09:09→22:06)
[2017-05-14] MEDS: NITROGLYCERIN 0.2 MG/HR PATCH T-DERMAL SCH (09:09)
[2017-05-14] MEDS: CALCITRIOL 0.25 MCG CAP PO SCH (09:10)
[2017-05-14] MEDS: CHOLECALCIFEROL (VIT D3) 400 UNIT TAB PO SCH ×2 (09:10→21:00)
[2017-05-14] MEDS: LACTOBACILLUS ACIDOPHILUS TAB PO SCH ×3 (09:10→17:21)
[2017-05-14] MEDS: CHLORHEXIDINE 0.12% (ORAL KIT) 15 ML CUP MT SCH ×2 (09:11→20:00)
[2017-05-14] MEDS ORDERED: MIDAZOLAM HCL 2 MG/2 ML VIAL IV ONE (12:00)
[2017-05-14] MEDS ORDERED: PROPOFOL 200 MG/20 ML AMP IV ONE (12:00)
[2017-05-14] MEDS ORDERED: ePHEDrine/NS 25 MG/5 ML SYR IV ONE (12:00)
--- NOTE | 2017-05-14 12:28 | GIPROC ---
[facility] [address] [facility]. [facility], [address] COLONOSCOPY PROCEDURE REPORT EXAM DATE: 05/14/2017 PATIENT NAME: Feli Sales MR #: [id number] BIRTHDATE: 1935 ENDOSCOPIST: Benton Hernández MD ORDER #: [id number] OVER[employer] CRANE INSPECTOR: Nina Ferraro Pat STATUS: inpatient INDICATIONS: The patient is a 82 yr old female here for a colonoscopy due to anal bleeding PROCEDURE PERFORMED: Colonoscopy, diagnostic MEDICATIONS: Per Anesthesia and None. PREP QUALITY: poor PREP TYPE:GoLytely ESTIMATED BLOOD LOSS: None CONSENT: The patient understands the risks and benefits of the procedure and understands that these risks include, but are not limited to: sedation, allergic reaction, infection, perforation and/or bleeding. Alternative means of evaluation and treatment include, among others: physical exam, x-rays, and/or surgical intervention. The patient elects to proceed with this endoscopic procedure. medical equipment was checked for proper function. Hand hygiene and appropriate measures for infection prevention was taken. After the risks, benefits and alternatives of the procedure were thoroughly explained, Informed consent was verified, confirmed and timeout was successfully executed by the treatment team. A digital exam revealed no abnormalities of the rectum The Pentax [id number] endoscope was introduced through the anus and advanced to the cecum, which was identified by both the appendix and ileocecal valve. The instrument was then slowly withdrawn as the colon was fully examined. COLON FINDINGS: Diverticulum was found in the sigmoid colon. The opening was large. Large internal hemorrhoids were found. A significant amount of stool was present throughout the entire examined colon. Retroflexion was not performed due to a narrow rectal vault The scope was then completely withdrawn from the patient and the procedure terminated. PROCEDURE WITHDRAWAL TIME:10minutes ADVERSE EVENTS: There were no complications. IMPRESSIONS: 1. Diverticulum in the sigmoid colon 2. Large internal hemorrhoids likely the source of bleeding 3. Significant amount of stool ( greenish yellow) was present throughout the entire examined colon, no blood seen throught the examined colon. RECOMMENDATIONS: No specific treatment RECALL: Return 6 months Colonoscopy when more stable for better visualization of the colon and better prep. Benton Hernández MD eSigned: Benton Hernández MD 05/14/2017 12:28 PM cc: PATIENT NAME: Feli Sales MR#: [id number]
[2017-05-14] MEDS ORDERED: ACETAMINOPHEN 650 MG/20.3 ML UDC PO PRN (13:00)
--- NOTE | 2017-05-14 13:22 | HHI.NPPN ---
Subjective History of Present Illness Patient is a 82-year-old with sepsis, COPD, intubation, diabetes, acute renal failure and chronic kidney disease. Additional Remarks Patient remain on the vent, Objective Data Data 05/14/17 05/15/17 19:00 07:00 Intake Total 500 ml Balance 500 ml Other 500 ml Vital Signs Date Time Temp Pulse Resp B/P (MAP) Pulse Ox O2 Delivery O2 Flow Rate FiO2 05/14/17 11:29 100 40 05/14/17 08:41 100 40 05/14/17 08:00 40 05/14/17 08:00 100.6 87 20 134/64 (87) 100 05/14/17 08:00 100 Mechanical Ventilator 40 05/14/17 08:00 87 05/14/17 06:00 79 05/14/17 04:06 95 40 05/14/17 04:00 100.2 90 18 137/62 (87) 100 05/14/17 04:00 40 05/14/17 04:00 90 05/14/17 02:00 80 05/14/17 01:17 100 40 05/14/17 00:00 78 05/14/17 00:00 40 05/14/17 00:00 99.7 78 18 118/57 (77) 100 05/13/17 22:32 40 05/13/17 22:32 100 40 05/13/17 22:00 108 05/13/17 20:44 100 40 05/13/17 20:00 40 05/13/17 20:00 99.0 92 25 137/60 (85) 100 05/13/17 20:00 92 05/13/17 19:00 100 Mechanical Ventilator 40 05/13/17 18:00 96 05/13/17 16:32 98 40 05/13/17 16:00 40 05/13/17 16:00 99.8 100 26 134/61 (85) 100 05/13/17 16:00 98 05/13/17 14:00 85 -: 05/14/17 0340 05/14/17 0340 Physical Exam General Appearance: No Acute Distress, Comfortable, Obese Neck Neck Exam: Neck Supple Pulmonary Resp Exam: Decreased Bases Cardiology CV Exam: Arrhythmia Gastrointestinal/Abdomen GI Exam: Bowel Sounds Hypoactive Extremeties Extremities Exam: Trace Edema Neurologic Neuro Exam: Alert, Awake Psychiatric Psych Exam: Appropriate Responses Assessment/Plan Problem List: (1) Acute on chronic renal insufficiency ICD Codes: N28.9 - Disorder of kidney and ureter, unspecified; N18.9 - Chronic kidney disease, unspecified Status: Acute Plan: Patient is in acute renal failure and had chronic kidney disease ESRD with no recovery no recovery Eliquis on hold off heparin placed PermCath may need AVF as well GI and colorectal surgery following the patient. colonoscopy done received prep and drop K 2.7 , replacement given no obvious source of bleed GI Bleed GI following HD T,T,S schedule (2) Hypertension ICD Codes: I10 - Hypertension Status: Acute Plan: Blood pressure was low (3) Diabetes ICD Codes: E11.9 - Type 2 diabetes mellitus without complications Status: Acute Plan: Continue to monitor (4) COPD with acute exacerbation ICD Codes: J44.1 - Chronic obstructive pulmonary disease with (acute) exacerbation Plan: extubated Problem Qualifiers (1) Diabetes: Tonja Grewal MD May 14, 2017 13:22
[2017-05-14] MEDS: ACETAMINOPHEN 325 MG TAB PO PRN ×3 (13:34→23:37)
--- NOTE | 2017-05-14 15:52 | PD.ID.CON ---
History of Present Illness Service ID Consult Requested By Reason for Consult Evaluation and MMent of bandemia. Primary Care Physician Unknown Diagnoses: History of Present Illness is an 82 y/o AAF with PMHx of hypertension, atrial fibrillation, diabetes mellitus, obesity, hypothyroidism, hyperlipidemia, diabetic neuropathy , who was seen in ED 3 days ago for bronchospasm. She has COPD/Asthma and restrictive lung disease related to her obesity. Patient was treated for reactive airway disease, given breathing treatments and was discharged on as needed inhalers. Patient was brought in today by her as she was having shortness of breath and on the way to the ED when she slumped over in the car. In the emergency department she showed agonal breathing, she was intubated for airway protection emergently. Chest x-ray showed bilateral infiltrates concerning for pneumonia. CT of the head was negative.The patient on scheduled IV Solu-Medrol, DuoNeb breathing treatments, cefepime and azithromycin for probable pneumonia. Patient was extubated on 04/22/2017. It appears on 2016 a rapid response team was called due to patient's altered mental status and hypoxemia. She was transferred to ICU due to hypercarbic acidosis and patient was reintubated.Patient became mildly hypotensive and initiated vasopressor therapy. Patient was started on HD and vascath placed. Patient was starting to do little better reportedly when she became tachycardic and H/H was 6.6 and pt recd PRBCs with improvement in Hb,Chest pain. GI was consulted and she underwent an EGD and Colonoscopy today. Colonoscopy with internal hemorrhoids likely source of bleeding. Due to bandemia, low grade fevers patient continues to be on Cefepime IV, Micafungin Dced today. Sputum with normal resp juan ramon, BCX negative to date. At the time of my evaluation, patient is in the [facility] intubated but alert, writing with a pen on scratch pad. Vascath in place. ID consulted for evaluation and Mment of bandemia. Review of Systems ROS Limitations: Intubated Past Family Social History Allergies: Coded Allergies: celecoxib (Unverified Allergy, Severe, SYNCOPE, 04/16/17) Past Medical History Hypertension Atrial fibrillation Diabetes type 2 insulin-requiring Hypothyroidism Hyperlipidemia Neuropathy diabetic Past Surgical History Total thyroidectomy in 2010 secondary to thyroid cancer History of partial small bowel resection Cholecystectomy Reported Medications Reported Meds & Active Scripts Active Proair Hfa 8.5 GM Inh (Albuterol Sulfate) 90 Mcg/Act Aer 2 Puff INH Q4-6H PRN 108 mcg/actuation Oxygen tank (Oxygen) 1 Ea Tank 2 Liter IGLESIA.CANULA CONTINUOUS Oxygen Concentrator Portable Gaseous 2 L/min via Nasal Cannula Continuous For 99 months Reported Metoprolol Tartrate 50 Mg Tab 50 Mg PO BID Lantus Solostar Pen Inj (Insulin Glargine) 300 Unit/3 Ml Pen 22 Units SQ HS Vitamin D (Cholecalciferol) 400 Unit Cap 400 Units PO BID Multivitamin Gummies Adul (Multiple Vitamins W/ Minerals) 1 Chw Chw 1 Chew PO BID Eliquis (Apixaban) 2.5 Mg Tab 2.5 Mg PO BID Calcitriol 0.25 Mcg Cap 0.25 Mcg PO DAILY Omeprazole 20 Mg Tab 20 Mg PO BID Gabapentin 100 Mg Cap 100 Mg PO BID Lisinopril 40 Mg Tab 40 Mg PO DAILY Atorvastatin (Atorvastatin Calcium) 20 Mg Tab 20 Mg PO HS Levothyroxine (Levothyroxine Sodium) 125 Mcg Tab 125 Mcg PO DAILY Diltiazem ER 24 HR 300 Mg Lexy 300 Mg PO DAILY Active Ordered Medications Current Medications Medications (Trade) Dose Ordered Sig/[place]loane Route Start Time Stop Time Status Last Admin (NS Flush) 2 ml UNSCH PRN IV FLUSH 04/19/17 08:30 05/05/17 05:01 (NS Flush) 2 ml BID IV FLUSH 04/19/17 09:00 05/13/17 20:54 Miscellaneous Information 1 Q361D XX 04/19/17 08:30 (Chlorhexidine 2% Cloth) Taper DAILY@04 TOP 04/20/17 04:00 04/16/18 03:59 04/26/17 04:00 (Chlorhexidine 2% Cloth) 3 pack UNSCH PRN TOP 04/19/17 08:30 (Eliquis) 2.5 mg BID PO 04/19/17 21:00 Future Hold 05/05/17 09:44 (Lipitor) 20 mg HS PO 04/19/17 21:00 05/13/17 20:55 (Rocaltrol) 0.25 mcg DAILY PO 04/20/17 09:00 05/14/17 09:10 (Synthroid) 125 mcg DAILY@0600 PO 04/20/17 06:00 05/14/17 05:16 (Vitamin D3) 400 units BID PO 04/19/17 21:00 05/14/17 09:10 (Apresoline Inj) 20 mg Q4H PRN IV PUSH 04/21/17 11:30 05/10/17 16:05 (Lopressor Inj) 5 mg Q5M PRN IV PUSH 04/24/17 02:15 05/13/17 12:02 (Theragran M Tab) 1 tab BID PO 04/24/17 10:00 05/14/17 09:08 (Protonix) 20 mg BID PO 04/24/17 09:00 Future Hold 05/05/17 21:48 (Cardizem Cd) 360 mg DAILY PO 04/25/17 09:00 Future Hold 05/05/17 09:44 (Lanoxin) 0.125 mg DAILY PO 04/27/17 09:00 Future Hold 05/05/17 09:44 (Pill Splitter) 1 ea UNSCH PRN OTHER 04/30/17 11:00 Sodium Chloride 1,000 ml @ 0 mls/hr Q0M PRN OTHER 04/30/17 13:26 05/11/17 15:21 (Heparin Inj) 8,000 units UNSCH PRN IV FLUSH 04/30/17 13:30 Sodium Chloride 1,000 ml @ 200 mls/hr Q5H PRN IV 04/30/17 13:26 Sodium Chloride 1,000 ml @ 0 mls/hr Q0M PRN OTHER 04/30/17 13:26 (Mannitol Inj) 12.5 gm UNSCH PRN IV 04/30/17 13:30 Albumin Human 100 ml @ 60 mls/hr UNSCH PRN IV 04/30/17 13:30 05/13/17 08:58 (NS Flush) 5 ml UNSCH PRN IV FLUSH 04/30/17 13:30 (Heparin Inj) UNSCH PRN .XX 04/30/17 13:30 05/13/17 08:57 (Gentamicin (Dialysis) Inj) 20 mg UNSCH PRN OTHER 04/30/17 13:30 05/13/17 08:57 (Zofran Inj) 4 mg UNSCH PRN IV PUSH 04/30/17 13:30 (Tylenol) 650 mg UNSCH PRN PO 04/30/17 13:30 05/14/17 17:20 (Benadryl) 25 mg UNSCH PRN PO 04/30/17 13:30 05/11/17 21:50 (Nitrostat Sl) 0.4 mg UNSCH PRN SL 04/30/17 13:30 (Catapres) 0.1 mg UNSCH PRN PO 04/30/17 13:30 (Epogen Inj) 10,000 units UNSCH PRN IV PUSH 04/30/17 13:30 05/13/17 08:57 (Gelfoam 12 Mm/7 Mm Top) 1 foam UNSCH PRN TOP 04/30/17 13:30 (Levemir Inj) 10 units Q12HR SQ 05/01/17 21:00 05/14/17 09:09 (NS Flush) UNSCH PRN IV FLUSH 05/01/17 12:15 (Heparin Inj) UNSCH PRN IV FLUSH 05/01/17 12:15 (Morphine Inj) 0.5 mg Q4H PRN IV 05/02/17 10:00 Future hold 05/13/17 10:13 (Lactinex) 1 tab TID PO 05/03/17 18:00 05/14/17 17:21 (Heparin Inj) 5,000 units Q8HR SQ 05/05/17 14:00 Future Hold 05/12/17 20:14 (Atropine Inj) 1 mg Q15M PRN IV PUSH 05/06/17 06:15 (Peridex 0.12% Liq) 15 ml BID@08,20 MT 05/06/17 20:00 05/14/17 09:11 Propofol 100 ml @ 3.57 mls/hr TITRATE PRN IV 05/06/17 09:15 (NovoLOG SUPPLEMENTAL SCALE) 1 Q6HR SQ 05/06/17 12:00 05/14/17 06:10 (Prevacid Odt) 30 mg DAILY NG 05/06/17 09:15 05/14/17 09:08 (Albuterol Neb) 2.5 mg Q2HR NEB PRN NEB 05/06/17 09:15 05/11/17 16:34 (Tears Naturale Opth Soln) 1 drop Q8HR EACH EYE 05/06/17 14:00 05/14/17 13:35 Levofloxacin/ Dextrose 50 ml @ 50 mls/hr Q48H IV 05/08/17 17:00 05/14/17 16:01 Cefepime HCl 1000 mg/Sodium Chloride 100 ml @ 200 mls/hr Q24H IV 05/09/17 09:00 05/14/17 09:07 (Lopressor) 50 mg BID PO 05/09/17 09:00 05/14/17 09:08 Fat Emulsion Intravenous 250 ml @ 10 mls/hr Q24H IV 05/09/17 20:00 05/13/17 20:51 (NS Flush) UNSCH PRN IV FLUSH 05/10/17 14:30 (Heparin Inj) UNSCH PRN IV FLUSH 05/10/17 14:30 Sodium Chloride 5.5 meq/Sodium Acetate 29.5 meq/ Potassium Chloride 20 meq/ Magnesium Chloride 5 meq/ Calcium Chloride 4.5 meq/ Multivitamins 10 ml/Amino Acids/ Dextrose 1,041.9719 ml @ 42 mls/hr Q24H IV 05/11/17 20:00 05/13/17 20:54 (Chloraseptic [place]) 1 spray Q6H PRN OROPHARYNG 05/11/17 16:00 05/11/17 17:28 (Duoneb Neb) 1 ampule Q6HR NEB NEB 05/11/17 22:00 05/14/17 15:59 (Cardizem) 60 mg Q6HR PO 05/12/17 14:00 05/14/17 17:20 (Nitro-Dur 0.2 Mg Patch.24 Hr) 1 patch DAILY T-DERMAL 05/12/17 15:00 05/14/17 09:09 Miscellaneous Information 1 HS T-DERMAL 05/12/17 21:00 05/13/17 21:00 (Tylenol 650 Mg/ 20 ml Liq) 650 mg Q6H PRN PO 05/14/17 13:00 Family History could not be obtained. Social History could not be obtained. Physical Exam Vital Signs Vital Signs Date Time Temp Pulse Resp B/P (MAP) Pulse Ox O2 Delivery O2 Flow Rate FiO2 05/14/17 14:00 83 05/14/17 12:00 90 05/14/17 12:00 100.8 90 18 111/55 (73) 100 05/14/17 12:00 40 05/14/17 11:29 100 40 05/14/17 10:00 92 05/14/17 08:41 100 40 05/14/17 08:00 40 05/14/17 08:00 100.6 87 20 134/64 (87) 100 05/14/17 08:00 100 Mechanical Ventilator 40 05/14/17 08:00 87 05/14/17 06:00 79 05/14/17 04:06 95 40 05/14/17 04:00 100.2 90 18 137/62 (87) 100 05/14/17 04:00 40 05/14/17 04:00 90 05/14/17 02:00 80 05/14/17 01:17 100 40 05/14/17 00:00 78 05/14/17 00:00 40 05/14/17 00:00 99.7 78 18 118/57 (77) 100 05/13/17 22:32 40 05/13/17 22:32 100 40 05/13/17 22:00 108 05/13/17 20:44 100 40 05/13/17 20:00 40 05/13/17 20:00 99.0 92 25 137/60 (85) 100 05/13/17 20:00 92 05/13/17 19:00 100 Mechanical Ventilator 40 05/13/17 18:00 96 05/13/17 16:32 98 40 05/13/17 16:00 40 05/13/17 16:00 99.8 100 26 134/61 (85) 100 05/13/17 16:00 98 Physical Exam GENERAL: This is a well-nourished, well-developed patient, in no apparent distress. SKIN: No rashes, ecchymoses or lesions. Cool and dry. HEAD: Atraumatic. Normocephalic. No temporal or scalp tenderness. EYES: Pupils equal round and reactive. Extraocular motions intact. No scleral icterus. No injection or drainage. ENT: Intubated. NECK: Trachea midline. Supple, nontender, no meningeal signs. CARDIOVASCULAR: Regular rate and rhythm without murmurs, gallops, or rubs. RESPIRATORY: Clear to auscultation. Breath sounds equal bilaterally. GASTROINTESTINAL: Abdomen soft, non-tender, nondistended. MUSCULOSKELETAL: Extremities without clubbing, cyanosis, or edema. No joint tenderness, effusion, or edema noted. No calf tenderness. Negative Homans sign bilaterally. NEUROLOGICAL: Awake and alert. Gross exam non focal Psych cooperative IV line sites with no e.o infection. Laboratory Laboratory Tests Test 05/13/17 21:20 05/14/17 03:40 05/14/17 07:36 Hemoglobin 9.5 9.5 Hematocrit 28.0 27.3 White Blood Count 6.5 Red Blood Count 3.06 Mean Corpuscular Volume 89.1 Mean Corpuscular Hemoglobin 31.1 Mean Corpuscular Hemoglobin Concent 34.9 Red Cell Distribution Width 15.0 Platelet Count 86 Mean Platelet Volume 9.6 Neutrophils (%) (Auto) 86.1 Lymphocytes (%) (Auto) 2.0 Monocytes (%) (Auto) 10.7 Eosinophils (%) (Auto) 0.8 Basophils (%) (Auto) 0.4 Neutrophils # (Auto) 5.6 Lymphocytes # (Auto) 0.1 Monocytes # (Auto) 0.7 Eosinophils # (Auto) 0.0 Basophils # (Auto) 0.0 CBC Comment AUTO DIFF Differential Total Cells Counted 100 Neutrophils % (Manual) 81 Band Neutrophils % 14 Lymphocytes % 1 Monocytes % 4 Neutrophils # (Manual) 6.2 Nucleated Red Blood Cells 7 Differential Comment FINAL DIFF MANUAL Platelet Estimate LOW Platelet Morphology Comment NORMAL Ovalocytes 1+ Prothrombin Time 12.3 Prothromb Time International Ratio 1.1 Blood Urea Nitrogen 23 Creatinine 3.51 Random Glucose 166 Calcium Level 7.9 Phosphorus Level 1.4 Magnesium Level 1.7 Sodium Level 140 Potassium Level 2.7 Chloride Level 101 Carbon Dioxide Level 29.0 Anion Gap 10 Estimat Glomerular Filtration Rate 15 Fibrinogen 328 Procalcitonin 14.44 Date/Time Source Procedure Growth Status 04/19/17 16:54 Blood Peripheral Aerobic Blood Culture - Final NO GROWTH IN 5 DAYS Complete 04/19/17 16:54 Blood Peripheral Anaerobic Blood Culture - Final NO GROWTH IN 5 DAYS Complete 05/06/17 09:30 Stool Stool Stool Occult Blood (LAYLA) - Final HEMOCCULT POSITIVE Complete 05/07/17 16:24 Sputum Endotracheal Gram Stain - Final Complete 05/07/17 16:24 Sputum Endotracheal Sputum Culture - Final MODERATE GROWTH NORMAL RESPIRATORY JUAN RAMON Complete 04/19/17 06:15 Urine Clean Catch Urine Culture - Final NO GROWTH Complete Result Diagram: 05/14/17 03405/14/17 0340 Imaging Last Impressions Chest X-Ray 05/11/17 0600 Signed Impressions: Service Date/Time: May 05:49 - CONCLUSION: 1. Cardiomegaly and findings of vascular congestion without overt failure. There has been no significant change when compared to the prior exam. Brian Mcmanus MD Abdomen X-Ray 05/11/17 0600 Signed Impressions: Service Date/Time: May 05:52 - CONCLUSION: 1. Continued colonic ileus. There has been no significant change when compared to the prior exam. Brian Mcmanus MD Catheter Placement X-Ray 05/10/17 0730 Signed Impressions: Service Date/Time: Wednesday, May 10, 2017 13:32 - CONCLUSION: Uncomplicated exchange of Vas-Cath for hemodialysis permacath with fluoroscopic guidance as above. The catheter can be used immediately. Duncan Delgado MD Enema w/Water Soluble 05/02/17 0000 Signed Impressions: Service Date/Time: Tuesday, May 02, 2017 08:02 - CONCLUSION: 1. Limited suboptimal exam. The cecum and right colon could not be opacified despite repeated attempts. 2. Residual stool and mild to moderate diverticulosis. Guevara Crowell MD Abdomen/Pelvis CT 05/02/17 0000 Signed Impressions: Service Date/Time: Tuesday, May 02, 2017 19:58 - CONCLUSION: 1. Nonspecific bowel gas pattern remains with contrast noted in the colon from the recent Gastrografin enema. The cecum remains distended. A rectal catheter is present. 2. No free air or fluid. 3. Small pleural effusions with mild consolidation in the lung bases. 4. Stable small adrenal masses likely representing adenomas. 5. Small nonobstructing left renal calculus. Guevara Crowell MD Renal Ultrasound 04/20/17 0000 Signed Impressions: Service Date/Time: April 15:07 - CONCLUSION: 1. There is no hydronephrosis. 2. Stable 8mm nonobstructing left renal stone. Duncan Avery MD Head CT 04/19/17 0702 Signed Impressions: Service Date/Time: Wednesday, April 19, 2017 07:29 - CONCLUSION: 1. Cerebral white matter hypodensity characteristic of chronic microvascular ischemic disease. 2. No evidence of acute infarct, hemorrhage, mass or edema. Renato Coughlin MD Assessment and Plan Assessment and Plan Bandemia, elevated procalcitonin, low grade fever, tachycardia (? Pneumonia vs Pulm edema) Possible pneumonitis. Procalcitonin Elevated but can be falsely elevated in ESRD patients. Bandemia: can be a sign of infection or stress related to GI bleeding. GI bleed with acute anemia s/p PRBC. Internal hemorrhoids. Acute resp failure on vent. Acute renal failure on HD using Vascath Recs: Continue Cefepime IV Continue Levaquin IV for now. Will likely deescalate antibiotics soon. Doppler UE and LE rule out DVT as cause of low grade fevers in bed bound pt. Follow cultures Follow clinically. julianne RN and pt and son. Brigitte Dias MD May 14, 2017 15:52
[2017-05-14] MEDS: LEVOFLOXACIN/DEXTROSE 250 MG/50 ML IV SCH (16:01)
[2017-05-14 18:26] LABS: HEMATOCRIT 25.6 % (35.0-46.0)
[2017-05-14 18:35] LABS: REVIEW FLAG FINAL
[2017-05-14] MEDS: SODIUM CHLORIDE 23.4% INJ 5.5 MEQ, SODIUM ACETATE INJ 29.5 MEQ, POTASSIUM CHLORIDE INJ ... IV SCH ×7 (19:39)
[2017-05-14] MEDS: FAT EMULSION 20% INJ 250 ML (@10 mls/hr) IV SCH (19:40)
[2017-05-14] MEDS: REMOVE OLD PATCH T-DERMAL SCH (21:00)
--- NOTE | 2017-05-14 21:11 | RADRPT ---
EXAM DATE/TIME: 05/14/2017 20:08 [facility] COMPARISON: No previous studies available for comparison. INDICATIONS : Bilateral arm swelling. MEDICAL HISTORY : Hypertension. Anticoagulant therapy. Atrial fibrillation. Asthma. Sleep apnea. Dyspnea. Arthritis. Diabetes. GOUT. SURGICAL HISTORY : Cholecystectomy. Thyroid surgery. Cataract surgery. ENCOUNTER: Initial ACUITY: 1 day PAIN SCORE: 10/10 LOCATION: Bilateral arms. FINDINGS: RIGHT UPPER EXTREMITY: There is occlusive thrombus within the right cephalic vein. Otherwise, there is spontaneous flow docu mented in the brachial, basilic, axillary, and subclavian veins. The vessels are compressible and au gmentation response is documented. No filling defects are seen. The flow is phasic with respiration . Direction of flow in the jugular vein is caudal. LEFT UPPER EXTREMITY: There is spontaneous flow documented in the brachial, basilic, cephalic, axillary, and subclavian vei ns. The vessels are compressible and augmentation response is documented. No filling defects are se en. The flow is phasic with respiration. Direction of flow in the jugular vein is caudal. CONCLUSION: 1. Occlusive thrombus within the right cephalic vein. The remaining veins of the right upper extremit y are patent. 2. There is no left upper extremity thrombus. Duncan Avery MD on May 14, 2017 at 21:09 Board Certified Radiologist. This report was verified electronically.
--- NOTE | 2017-05-14 21:11 | RADRPT ---
EXAM DATE/TIME: 05/14/2017 19:39 [facility] COMPARISON: No previous studies available for comparison. INDICATIONS : Bilateral leg swelling. MEDICAL HISTORY : Hypertension. Anticoagulant therapy. Atrial fibrillation. Asthma. Sleep apnea. Dyspnea. Arthritis. Diabetes. GOUT. SURGICAL HISTORY : Cholecystectomy. Cataract surgery. Thyroid surgery. ENCOUNTER: Initial ACUITY: 1 day PAIN SCORE: 10/10 LOCATION: Bilateral legs. TECHNIQUE: Venous ultrasound of the left and right leg was performed from the inguinal ligament to the proximal calf. Real-time, color Doppler and spectral tracing, compression and augmentation techniques were us ed. FINDINGS: RIGHT LEG: There is normal compressibility of the deep venous system from the inguinal region to the proximal ca lf. No echogenic clot is seen in the lumen of the common femoral, femoral, popliteal, and posterior tibial veins. There is a normal response of the venous system to proximal and distal augmentation an d respiration. LEFT LEG: There is normal compressibility of the deep venous system from the inguinal region to the proximal ca lf. No echogenic clot is seen in the lumen of the common femoral, femoral, popliteal, and posterior tibial veins. There is a normal response of the venous system to proximal and distal augmentation an d respiration. CONCLUSION: No DVT is identified within either lower extremity. Duncan Avery MD on May 14, 2017 at 21:09 Board Certified Radiologist. This report was verified electronically.
[2017-05-14] MEDS: ATORVASTATIN 20 MG TAB PO SCH (21:29)
[2017-05-15] VITALS (19 sets, daily range): BP systolic 101–140; BP diastolic 46–78; PULSE 68–122; RESP 18–22; TEMP 97.8–99.9; O2SAT 100
[2017-05-15] MEDS: POTASSIUM CHLOR 20 MEQ PREMIX 100 ML IV SCH (02:24)
[2017-05-15] MEDS: RESP: ALBUTEROL 2.5 MG/IPRATROPIUM 0.5 MG NEB (SCH) NEB ×4 (03:34→19:40)
[2017-05-15] MEDS: CHLORHEXIDINE GLUCONATE 2 % 1 PACK (2 CLOTHS) TOP SCH (04:00)
[2017-05-15 05:11] LABS: AUTOMATED NEUTROPHIL # 5.1 TH/MM3 (1.8-7.7); BASOPHIL % 0.5 % (0.0-2.0); EOSINOPHIL # 0.1 TH/MM3 (0-0.4); EOSINOPHIL % 1.4 % (0.0-4.0); HEMATOCRIT 25.2 % (35.0-46.0); LYMPH % 3.3 % (9.0-44.0); LYMPHOCYTE # 0.2 TH/MM3 (1.0-4.8); MEAN CELL VOLUME 88.9 FL (80.0-100.0); MEAN CORPUSCULAR HEMOGLOBIN 30.9 PG (27.0-34.0); MEAN CORPUSCULAR HGB CONC 34.8 % (32.0-36.0); MONO % 8.5 % (0.0-8.0); NEUT % 86.3 % (16.0-70.0); PLATELET COUNT 77 TH/MM3 (150-450); RED BLOOD COUNT 2.83 MIL/MM3 (4.00-5.30); RED CELL DISTRIBUTION WIDTH 15.8 % (11.6-17.2); WHITE BLOOD COUNT 5.9 TH/MM3 (4.0-11.0)
[2017-05-15] MEDS: DILTIAZEM HCL 60 MG TAB PO SCH ×2 (05:21→12:03)
[2017-05-15 05:22] LABS: HEMO FLAGS AUTO DIFF
[2017-05-15] MEDS: ARTIFICIAL TEARS OPTH SOLN 15 ML BTL EACH EYE SCH ×3 (05:22→21:56)
[2017-05-15 05:39] LABS: BICARBONATE 25.2 MEQ/L (21.0-32.0); MAGNESIUM 1.8 MG/DL (1.5-2.5); POTASSIUM 3.7 MEQ/L (3.5-5.1)
[2017-05-15] MEDS: INSULIN ASPART SUPPLEMENTAL SCALE SQ SCH ×4 (06:00→17:52)
[2017-05-15] MEDS: LEVOTHYROXINE SODIUM 125 MCG TAB PO SCH (06:00)
[2017-05-15] MEDS ORDERED: SODIUM PHOSPHATE INJ 15 MMOL in SODIUM CHLORIDE 0.9% INJ 150 ML IV ONE (06:45)
[2017-05-15 07:40] LABS: BANDS 23 % (0-6); BASOPHILS 1 % (0-2); MYELOCYTES 1 % (0-0); NEUTROPHIL # MANUAL DIFF 5.4 TH/MM3 (1.8-7.7); POLYS (SEG NEUTROPHILS) 67 % (16-70); WBC DIFF SAMPLE 100
[2017-05-15 07:41] LABS: PLATELET ESTIMATE SMEAR LOW (NORMAL); PLATELET MORPHOLOGY ENLARGED (NORMAL); POLYCHROMASIA 2.8 % (0.0-1.9); SCAN/DIFF FINAL DIFF MANUAL
[2017-05-15] MEDS: CEFEPIME 1000 MG/NS 100 ML IV SCH ×2 (08:13)
[2017-05-15] MEDS: MULTIVITAMINS/MINERALS THERAPEUTIC TAB PO SCH ×2 (08:14→20:21)
[2017-05-15] MEDS: LACTOBACILLUS ACIDOPHILUS TAB PO SCH ×3 (08:14→17:05)
[2017-05-15] MEDS: LANSOPRAZOLE SOLUTAB 30 MG TAB NG SCH (08:14)
[2017-05-15] MEDS: CALCITRIOL 0.25 MCG CAP PO SCH (08:14)
[2017-05-15] MEDS: CHOLECALCIFEROL (VIT D3) 400 UNIT TAB PO SCH ×2 (08:15→20:21)
[2017-05-15] MEDS: INSULIN DETEMIR 100 UNITS/ML VIAL SQ SCH ×2 (08:15→21:00)
[2017-05-15] MEDS: CHLORHEXIDINE 0.12% (ORAL KIT) 15 ML CUP MT SCH ×2 (08:16→20:00)
[2017-05-15] MEDS: METOPROLOL TARTRATE 50 MG TAB PO SCH ×2 (08:16→20:20)
[2017-05-15] MEDS: SODIUM CHLORIDE 0.9% FLUSH 10 ML FLUSH IV FLUSH SCH ×2 (08:16→21:00)
[2017-05-15] MEDS: NITROGLYCERIN 0.2 MG/HR PATCH T-DERMAL SCH (08:16)
[2017-05-15 13:27] LABS: HEPARIN AB OD 0.113 O.D. (0.000-0.300); HEPARIN INDUCED PLATELET AB NEGATIVE (NEGATIVE)
--- NOTE | 2017-05-15 13:36 | HHI.HCPN ---
Reason for visit a. To assist with evaluation and management of symptoms including: Debility , pain, dyspnea b. To assist medical decision maker(s) with: better understanding of current medical conditions; weighing benefits/burdens of medical treatment options; making medical treatment decisions. . Subjective/Interval History Pt seen today to follow up on comfort, goals. Patient with episode atrial fibrillation 130s over the weekend. Now Resolved. on 05/13 Hemoglobin 5.7, s/ p transfusion 3 units RBC with dialysis. Low grade fever over weekend 100.2. heparin SQ d/c 2/2 hematuria. Fibrinogen, HIT panel sent [fibrinogen 328, HIT panel pending]. s/p colonoscopy yesterday + findings of diverticulum, large hemorrhoids, large amount of stool. No active bleeding. H&H stable today. Ongoing CPAP trials though patient not tolerating for prolonged time will likely require tracheostomy. Tentatively planned for tomorrow. Patient seen in room with , daughter at bedside. RT also at bedside for ventilator check. Patient on CPAP, has been tolerating for approximately 3 hours per RT. Patient is awake, nodding to questions, following simple commands. Provided update to family and patient at bedside review of labs, current treatments, pending treatment/procedures this week review of tracheostomy, possible PEG tube etc. Review of CPAP trials and ventilator weaning. Review of recent imaging they have questions regarding ultrasound for DVT yesterday. Offered to assist patient to write she declines indicates her family is speaking for her. She denies pain. She only complains of discomfort to her throat and indicates she wants the breathing tube out. I again explain weaning, CPAP, tracheostomy; she rolls her eyes and nods in agreement. All questions answered, patient and family indicate they have been speaking and they would proceed with tracheostomy and would probably proceed with feeding tube as well to continue to try to improve/restore patient, and get her to rehabilitation. Goals remain aggressive. . Advance Directives Living Will: Never completed Health Care Surrogate: Copy in medical record Durable Power of Manager Post: Never completed Advance Directive Specifics Date completed: 05/08/2017 . Health Care Surrogate(s): Health care surrogate form completed 05/08/2017 designating the patient's daughter (Shilpa) as the healthcare surrogate decision maker. The patient's son (Jason) is the alternate health care surrogate decision maker. Documented care wishes: Healthcare surrogate form was completed 05/08/2017. No other documented care wishes have been completed. Plan to discuss written advanced directives/living will after the patient has been extubated in the upcoming days. . Objective Vital Signs Date Time Temp Pulse Resp B/P (MAP) Pulse Ox O2 Delivery O2 Flow Rate FiO2 05/15/17 12:36 100 35 05/15/17 12:00 40 05/15/17 12:00 87 05/15/17 12:00 99.5 87 20 118/67 (84) 100 05/15/17 10:56 35 05/15/17 10:00 82 05/15/17 09:40 100 35 05/15/17 08:00 122 05/15/17 08:00 99.1 122 18 117/58 (77) 100 05/15/17 08:00 40 05/15/17 07:00 100 Mechanical Ventilator 40 05/15/17 06:00 82 05/15/17 04:06 100 40 05/15/17 04:00 40 05/15/17 04:00 99.1 94 18 107/60 (76) 100 05/15/17 04:00 94 05/15/17 02:00 102 05/15/17 01:31 100 40 05/15/17 00:00 99.2 84 18 106/56 (73) 100 05/15/17 00:00 40 05/15/17 00:00 84 05/14/17 23:06 100 40 05/14/17 22:00 88 05/14/17 20:36 100 40 05/14/17 20:36 40 05/14/17 20:00 98 05/14/17 20:00 40 05/14/17 20:00 98.9 98 20 120/74 (89) 100 05/14/17 19:00 100 Mechanical Ventilator 40 05/14/17 18:00 84 05/14/17 16:00 100 40 05/14/17 16:00 40 05/14/17 16:00 92 05/14/17 16:00 98.8 92 16 115/58 (77) 100 05/14/17 14:30 18 05/14/17 14:00 83 Intake & Output 05/15/17 05/15/17 07:00 19:00 Intake Total 1772 ml Output Total 100 ml Balance 1672 ml IV Total 1572 ml Tube Irrigant 200 ml Output Urine Total 100 ml # Bowel Movements 0 Physical Exam CONSTITUTIONAL/GENERAL: This is an elderly female, orotracheally intubated, alert, no distress TUBES/LINES/DRAINS: OGT, ETT, Nelson catheter, digni-shield, soft restraints, Vas -Cath, PIV 2 SKIN: Skin temperature appropriate. Not diaphoretic. NECK: Orally intubated. CARDIOVASCULAR: Irregular rate and rhythm. No murmur. Atrial fib 80s observed on bedside monitor. No JVD. Peripheral pulses symmetric. + 1-2 edema upper extremities. RESPIRATORY/CHEST: Unlabored respirations via ET tube to mechanical vent. Lungs are clear throughout, decreased air movement to bases. GASTROINTESTINAL: Obese, Abdomen soft, non-tender, nondistended. Hypoactive bowel sounds present. OG tube clamped GENITOURINARY: Without palpable bladder distension. Nelson catheter in place. Small amount dark concentrated urine. NEUROLOGICAL: awake, nods to yes and no questions, gestures. Appears partially mostly oriented. Reports able to write as needed though she declines to at this time. She does follow simple commands. PSYCHIATRIC: No obvious anxiety/depression. no apparent hallucinations or other psychotic thought process. . Diagnostic Tests Laboratory Laboratory Tests Test 05/13/17 07:23 05/13/17 15:32 05/13/17 21:20 05/14/17 03:40 White Blood Count 7.7 TH/MM3 (4.0-11.0) 6.5 TH/MM3 (4.0-11.0) Red Blood Count 1.94 MIL/MM3 (4.00-5.30) 3.06 MIL/MM3 (4.00-5.30) Hemoglobin 5.9 GM/DL (11.6-15.3) 9.6 GM/DL (11.6-15.3) 9.5 GM/DL (11.6-15.3) 9.5 GM/DL (11.6-15.3) Hematocrit 17.6 % (35.0-46.0) 27.2 % (35.0-46.0) 28.0 % (35.0-46.0) 27.3 % (35.0-46.0) Mean Corpuscular Volume 90.9 FL (80.0-100.0) 89.1 FL (80.0-100.0) Mean Corpuscular Hemoglobin 30.6 PG (27.0-34.0) 31.1 PG (27.0-34.0) Mean Corpuscular Hemoglobin Concent 33.6 % (32.0-36.0) 34.9 % (32.0-36.0) Red Cell Distribution Width 15.9 % (11.6-17.2) 15.0 % (11.6-17.2) Platelet Count 91 TH/MM3 (150-450) 86 TH/MM3 (150-450) Mean Platelet Volume 9.3 FL (7.0-11.0) 9.6 FL (7.0-11.0) Hematology Comments Neutrophils (%) (Auto) 86.1 % (16.0-70.0) Lymphocytes (%) (Auto) 2.0 % (9.0-44.0) Monocytes (%) (Auto) 10.7 % (0.0-8.0) Eosinophils (%) (Auto) 0.8 % (0.0-4.0) Basophils (%) (Auto) 0.4 % (0.0-2.0) Neutrophils # (Auto) 5.6 TH/MM3 (1.8-7.7) Lymphocytes # (Auto) 0.1 TH/MM3 (1.0-4.8) Monocytes # (Auto) 0.7 TH/MM3 (0-0.9) Eosinophils # (Auto) 0.0 TH/MM3 (0-0.4) Basophils # (Auto) 0.0 TH/MM3 (0-0.2) CBC Comment AUTO DIFF Differential Total Cells Counted 100 Neutrophils % (Manual) 81 % (16-70) Band Neutrophils % 14 % (0-6) Lymphocytes % 1 % (9-44) Monocytes % 4 % (0-8) Neutrophils # (Manual) 6.2 TH/MM3 (1.8-7.7) Nucleated Red Blood Cells 7 /100 WBC (0-0) Differential Comment FINAL DIFF MANUAL Platelet Estimate LOW (NORMAL) Platelet Morphology Comment NORMAL (NORMAL) Ovalocytes 1+ (NORMAL) Prothrombin Time 12.3 SEC (9.8-11.6) Prothromb Time International Ratio 1.1 RATIO Blood Urea Nitrogen 23 MG/DL (7-18) Creatinine 3.51 MG/DL (0.50-1.00) Random Glucose 166 MG/DL (74-106) Calcium Level 7.9 MG/DL (8.5-10.1) Phosphorus Level 1.4 MG/DL (2.5-4.9) Magnesium Level 1.7 MG/DL (1.5-2.5) Sodium Level 140 MEQ/L (136-145) Potassium Level 2.7 MEQ/L (3.5-5.1) Chloride Level 101 MEQ/L (98-107) Carbon Dioxide Level 29.0 MEQ/L (21.0-32.0) Anion Gap 10 MEQ/L (5-15) Estimat Glomerular Filtration Rate 15 ML/MIN (>89) Test 05/14/17 07:36 05/14/17 17:50 05/14/17 18:00 05/15/17 04:09 Fibrinogen 328 mg/dL (227-377) Procalcitonin 14.44 ng/mL (0.00-0.08) Potassium Level 2.4 MEQ/L (3.5-5.1) 3.7 MEQ/L (3.5-5.1) Hemoglobin 9.0 GM/DL (11.6-15.3) 8.8 GM/DL (11.6-15.3) Hematocrit 25.6 % (35.0-46.0) 25.2 % (35.0-46.0) White Blood Count 5.9 TH/MM3 (4.0-11.0) Red Blood Count 2.83 MIL/MM3 (4.00-5.30) Mean Corpuscular Volume 88.9 FL (80.0-100.0) Mean Corpuscular Hemoglobin 30.9 PG (27.0-34.0) Mean Corpuscular Hemoglobin Concent 34.8 % (32.0-36.0) Red Cell Distribution Width 15.8 % (11.6-17.2) Platelet Count 77 TH/MM3 (150-450) Mean Platelet Volume 9.7 FL (7.0-11.0) Neutrophils (%) (Auto) 86.3 % (16.0-70.0) Lymphocytes (%) (Auto) 3.3 % (9.0-44.0) Monocytes (%) (Auto) 8.5 % (0.0-8.0) Eosinophils (%) (Auto) 1.4 % (0.0-4.0) Basophils (%) (Auto) 0.5 % (0.0-2.0) Neutrophils # (Auto) 5.1 TH/MM3 (1.8-7.7) Lymphocytes # (Auto) 0.2 TH/MM3 (1.0-4.8) Monocytes # (Auto) 0.5 TH/MM3 (0-0.9) Eosinophils # (Auto) 0.1 TH/MM3 (0-0.4) Basophils # (Auto) 0.0 TH/MM3 (0-0.2) CBC Comment AUTO DIFF Differential Total Cells Counted 100 Neutrophils % (Manual) 67 % (16-70) Band Neutrophils % 23 % (0-6) Lymphocytes % 4 % (9-44) Monocytes % 4 % (0-8) Basophils % 1 % (0-2) Neutrophils # (Manual) 5.4 TH/MM3 (1.8-7.7) Myelocytes 1 % (0-0) Differential Comment FINAL DIFF MANUAL Platelet Estimate LOW (NORMAL) Platelet Morphology Comment ENLARGED (NORMAL) Polychromasia 2.8 % (0.0-1.9) Blood Urea Nitrogen 32 MG/DL (7-18) Creatinine 4.43 MG/DL (0.50-1.00) Random Glucose 94 MG/DL (74-106) Calcium Level 7.7 MG/DL (8.5-10.1) Phosphorus Level 2.3 MG/DL (2.5-4.9) Magnesium Level 1.8 MG/DL (1.5-2.5) Sodium Level 138 MEQ/L (136-145) Chloride Level 101 MEQ/L (98-107) Carbon Dioxide Level 25.2 MEQ/L (21.0-32.0) Anion Gap 12 MEQ/L (5-15) Estimat Glomerular Filtration Rate 12 ML/MIN (>89) Result Diagram: 05/15/17 0409 05/15/17 0409 Imaging Last Impressions Upper Extremity Ultrasound 05/14/17 0000 Signed Impressions: Service Date/Time: Sunday, May 14, 2017 20:08 - CONCLUSION: 1. Occlusive thrombus within the right cephalic vein. The remaining veins of the right upper extremity are patent. 2. There is no left upper extremity thrombus. Duncan Avery MD Lower Extremity Ultrasound 05/14/17 0000 Signed Impressions: Service Date/Time: Sunday, May 14, 2017 19:39 - CONCLUSION: No DVT is identified within either lower extremity. Duncan Avery MD Chest X-Ray 05/11/17 0600 Signed Impressions: Service Date/Time: May 05:49 - CONCLUSION: 1. Cardiomegaly and findings of vascular congestion without overt failure. There has been no significant change when compared to the prior exam. Brian Mcmanus MD Abdomen X-Ray 05/11/17 06 Signed Impressions: Service Date/Time: May 05:52 - CONCLUSION: 1. Continued colonic ileus. There has been no significant change when compared to the prior exam. Brian Mcmanus MD Catheter Placement X-Ray 05/10/17 0730 Signed Impressions: Service Date/Time: Wednesday, May 10, 2017 13:32 - CONCLUSION: Uncomplicated exchange of Vas-Cath for hemodialysis permacath with fluoroscopic guidance as above. The catheter can be used immediately. Duncan Delgado MD Enema w/Water Soluble 05/02/17 0000 Signed Impressions: Service Date/Time: Tuesday, May 02, 2017 08:02 - CONCLUSION: 1. Limited suboptimal exam. The cecum and right colon could not be opacified despite repeated attempts. 2. Residual stool and mild to moderate diverticulosis. Guevara Crowell MD Abdomen/Pelvis CT 05/02/17 0000 Signed Impressions: Service Date/Time: Tuesday, May 02, 2017 19:58 - CONCLUSION: 1. Nonspecific bowel gas pattern remains with contrast noted in the colon from the recent Gastrografin enema. The cecum remains distended. A rectal catheter is present. 2. No free air or fluid. 3. Small pleural effusions with mild consolidation in the lung bases. 4. Stable small adrenal masses likely representing adenomas. 5. Small nonobstructing left renal calculus. Guevara Crowell MD Renal Ultrasound 04/20/17 0000 Signed Impressions: Service Date/Time: April 15:07 - CONCLUSION: 1. There is no hydronephrosis. 2. Stable 8mm nonobstructing left renal stone. Duncan Avery MD Head CT 04/19/17 0702 Signed Impressions: Service Date/Time: Wednesday, April 19, 2017 07:29 - CONCLUSION: 1. Cerebral white matter hypodensity characteristic of chronic microvascular ischemic disease. 2. No evidence of acute infarct, hemorrhage, mass or edema. Renato Coughlin MD Procedures 04/19/17: Intubation 04/19/17: OGT placement 04/21/17: Extubation 05/01/17: NGT placed. 05/05/17: Reintubation; Left IJ central line placement 05/10/2017: PermCath placement . Assessment and Plan Disease Oriented Problem List: (1) Hypothyroidism (2) Hyperlipidemia (3) Diabetes (4) Pneumonia (5) Atrial fibrillation (6) Acute on chronic kidney failure (7) COPD with acute exacerbation (8) Acute metabolic encephalopathy (9) Peripheral neuropathy (10) History of small bowel obstruction (11) History of thyroid cancer (12) Rectal bleeding Symptom Scale: (1) Debility 0-10 Scale: Unable to quantify (bedbound status, restrained.) (2) Dyspnea 0-10 Scale: Unable to quantify (failing vent trials. Third intubation this admission.) (3) Pain 0-10 Scale: Unable to quantify (generalized discomfort, invasive lines, restraints, bedbound.) Pertinent Non-Medical Issues Psychosocial: Patient is originally from [place]. She had 3 children. Daughter (Shilpa) lives in [place], [place] and son (Jason) lives in [place], [place]. Patient had another daughter who from breast cancer. Patient was remarried after her ; she is currently to her second (Vitaliy). 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 She has 25 grandchildren/great- grandchildren. Spiritual: Bahai messi Legal:Health care surrogate form completed 05/08/2017 designating the patient's daughter (Shilpa) as the healthcare surrogate decision maker. The patient's son (Jason) is the alternate health care surrogate decision maker. Ethical issues impacting care: No known ethical issues impacting care at this time. . Important Contacts Vitaliy Sales, spouse: [phone] or [phone] (cell) Shilpa Gonzalse, daughter/[facility]: [phone] Jason Sales, son/alternate [facility]: [phone] . Prognosis Patient is an 82-year-old female who has been admitted 3 times in 2017 for management of respiratory failure/pneumonia. She has required intubation/ mechanical ventilation x 2 since her admission on 04/19/2017. Given patient's complex medical history with recurrent hospitalizations, advanced age and recent decline in functional status, she is high risk for ongoing setbacks and complications. . Code Status: Full Code Plan * Legal decision maker: Her daughter, Shilpa, has been designated as the healthcare surrogate and her son, Jason, is the alternate healthcare surrogate * Goals: Patient able to write, nod and participate some in discussions.patient and family indicate they have been speaking and they would proceed with tracheostomy and would probably proceed with feeding tube as well to continue to try to improve/restore patient, and get her to rehabilitation. Goals remain aggressive. * CODE STATUS: FULL CODE. * SYMPTOMS: * Dyspnea: CPAP trials continue though she has not tolerated for prolonged time , likely she'll require tracheostomy, tentatively planned for tomorrow. Patient is motivated to cooperate with trials. She is awake on the mechanical ventilator, alert and active. She was intubated 04/19/17 on admission, extubated 04/21 and required reintubation 05/06/17. Likely multifactorial related to her COPD, obesity and infection. * Pain: She denies pain at this time and is receiving no pain medication. Likely sources of pain would be bedbound status, invasive lines, intubation, restraints. * Debility: Previously independent with all ADLs, residing at home her . She used a cane or walker for ambulation. She is expected to require rehabilitation after prolonged hospitalization (26 days at this time). She has been accepted at [facility] and rehabilitation, as well as [facility] for dialysis--however this may change as she is planned for tracheostomy this week. She has had Hemoccult positive stool and has required transfusions for anemia which is likely contributing to her debility, weakness and fatigue. Palliative care will continue to follow the patient during hospital course as condition evolves, to assist patient/decision-maker with understanding of their medical conditions, weighing benefits/burdens of treatment options, for clarification of goals of treatment. Additionally will assist with any symptoms of palliative concern. . Time Spent Total Floor Time (mins): 30 (Chart review, PE, discussion with family, discussion with nursing) Attestation To help prompt me to consider important information that might be impacting today's encounter and assessment, information from prior notes written by myself or my colleagues may have been "brought forward" into today's note. My signature on this note, however, is an attestation that I personally performed the exam, history, and/or decision-making noted today, and, unless otherwise indicated, the interactions with patient, family, and staff as well as the review of records all occurred today. I also attest that the listed assessment and stated plan reflect my best clinical judgment today based on the combination of historical information, prior notes, and today's exam/ interactions. When time spent is documented, it refers only to time spent today by the signer, or if indicated, combined time spent today by collaborating physician/nurse practitioner. Linn Escudero May 15, 2017 13:36
--- NOTE | 2017-05-15 13:58 | HHI.CCPN ---
Subjective Remarks/Hospital Course The patient is an 82 year old female past with past medical history significant for hypertension, atrial fibrillation, diabetes mellitus, obesity, hypothyroidism, hyperlipidemia, diabetic neuropathy, who was seen in ED 3 days ago bronchospasm. She has COPD/Asthma and restrictive lung disease related to her obesity. Patient was treated for reactive airway disease, given breathing treatments and was discharged on as needed inhalers. Patient was brought in today by her as she was having shortness of breath and on the way to the ED when she slumped over in the car. In the emergency department she showed agonal breathing, she was intubated for airway protection emergently. Patient was given Solu-Medrol and breathing treatments and was placed on the mechanical ventilation. Chest x-ray showed bilateral infiltrates concerning for pneumonia. CT of the head was negative. I evaluated the patient in the ICU. She is on minimal sedation and mild attempts to wake up and intermittently tries to follows commands. She still on high oxygen requirement FiO2 is 60% with a PEEP of 5. I have increased the PEEP to 10. I have started the patient on scheduled IV Solu-Medrol, DuoNeb breathing treatments, cefepime and azithromycin for probable pneumonia. 04/20 Remains intubated, off sedation following commands. Currently FiO2 had been weaned to 40%. Urine output 950 ml since admission. Start SBT, Bumex 1 mg IV x1. 04/21: Tolerating CPAP better today, Appears calm following commands. UO adequate, though creat increasing. Cultures remain negative 04/22: Extubated yesterday required BiPAP overnight. Currently on nasal cannula slightly tachypneic but able to talk in full sentences maintaining oxygen saturation 04/23: Breathing more comfortably today on nasal cannula. Daughter At the bedside. Urine output adequate, creatinine has slightly improved 05/05: Rapid response team was called due to patient's altered mental status and hypoxemia. She was immediately transferred to ICU with a blood gas showing severe hypercarbic acidosis and was immediately intubated. She also became slightly hypotensive requiring a central line placement and initiation of vasopressor therapy 05/06: Awake and alert but not following commands. Nods head but inappropriately to questions. CAM ICU positive. Sedation is currently been held. Off norepinephrine. Currently nothing by mouth. 05/07: Tmax 100.4 Patient awake following commands. Sedation off a greater than 24-hour. Discussion of CODE STATUS with patient and daughter, patient states she requests to be full code explanation provided in detail. CODE STATUS changed to full code. Sputum cultures pending. Empiric antibiotics initiated Levaquin and cefepime. Patient continues on CPAP trials. The patient lasted 13 hours yesterday on CPAP. Plan for Vas-Cath placement by interventional radiology scheduled for 05/10. 05/08: Patient continues on CPAP trials, alert and responsive, denies pain. Plan for obtaining SBT parameters today a successful will extubate. Sputum culture revealed initial preliminary results of budding yeasts, micafungin added to medication regimen. Patient's scheduled by IR placement of Vas-Cath in a.m.. Patient continues on Reglan and nothing by mouth status per GI, large amounts of diarrhea/loose stools, plan for KUB this afternoon. 05/09: Tmax 99.0. The patient tolerated CPAP trials continuation overnight, approximately 24 hours. SBT performed last evening,WNL. Patient remains awake , alert and interactive. The patient is scheduled for permacath placement via IR this a.m. to be followed by dialysis. Plan for SBT trial postdialysis with a trial of extubation. Throughout the night the patient became tachycardic, with systolic blood pressure greater than 160s. Metoprolol resumed. Patient complained of throat pain early this a.m. relieved with Tylenol. GI following, obtained repeat KUB yesterday we'll await recommendations. Plan to discontinue IV fluids and initiate PPN. 05/10: Afebrile. Patient underwent IHD with 3 L fluid removal yesterday. Plan for permacath placement today. Patient noted to be continued hypertensive, Cardizem home medication resumed. Patient underwent SBT trials postdialysis yesterday with subsequent failure unable to extubate. Plan for repeat SBT parameters today, with anticipation of possible extubation. 05/11: Remains orally intubated on mechanical ventilation. EGD unremarkable 05/12: Remains orally intubated on mechanical ventilation. Had chest pain yesterday with EKG changes in the lateral leads. Troponin borderline 0.51. Hemoglobin 6.6 for which 2 units PRBCs were transfused yesterday. Patient was noted to have rectal bleeding this morning for which GI was notified. 05/13: Hemoglobin 5.7. Patient to receive 3 units packed red blood cells with dialysis today. Last evening the patient continued into A. fib heart rate in the 130s received 1 dose of 0.5 mg of morphine, for chest pain during the night , PRN Beta Blockers. Continues with Nitropaste. Patient denies abdominal pain. Tentative plan for colonoscopy tomorrow with Dr. Hernández. 05/14: Tmax 100.2. Patient received GoLYTELY in for scheduled colonoscopy today. Patient had 2 L stool output overnight, maroon-colored. Repeat hemoglobin performed stable 9.5. A. fib now rate controlled. Patient was noted to have hematuria during the night, heparin SQ prophylaxis was discontinued yesterday secondary to bleeding however the patient receives heparin during the dialysis. Fibrinogen and HIT panel labs pending. Reconsulted colorectal surgery, initial consult placed 05/01/[address] Tam. Patient denies abdominal pain. Subjective 05/15 Colonscopy yesterday with large internal hemorrhoids, large amount of stool in colon. Dignishield removed after colonscopy and no BM since. Patient denies abdominal pain. CPAP today and tolerates 15/5 but RSBI in 120s when pressure support lowered. Discussed with patient and daughter at bedside and they are anticipating trach and agreeable to proceed. Afib with occasional RVR Objective Vital Signs Date Time Temp Pulse Resp B/P (MAP) Pulse Ox O2 Delivery O2 Flow Rate FiO2 05/15/17 12:36 100 35 05/15/17 12:00 87 05/15/17 12:00 99.5 20 118/67 (84) 05/15/17 07:00 Mechanical Ventilator 05/11/17 19:00 6.00 Intake and Output 05/15/17 05/15/17 05/16/17 08:00 16:00 00:00 Intake Total 877 ml Output Total 100 ml Balance 777 ml Result Diagram: 05/15/17 0409 05/15/17 0409 Imaging Last Impressions Chest X-Ray 05/08/17 0600 Signed Impressions: Service Date/Time: Monday, May 08, 2017 03:23 - CONCLUSION: 1. Cardiomegaly and findings of vascular congestion without overt failure. There has been no significant change when compared to the prior exam. Brian Mcmanus MD Abdomen X-Ray 05/08/17 0000 Signed Impressions: Service Date/Time: Monday, May 08, 2017 15:33 - CONCLUSION: Persistent mild dilatation of the ascending colon and transverse colon. Findings favor ileus. There are no findings to indicate small bowel obstruction. When correlating with prior CT it is felt unlikely to represent any colonic obstruction. Duncan Avery MD Enema w/Water Soluble 05/02/17 0000 Signed Impressions: Service Date/Time: Tuesday, May 02, 2017 08:02 - CONCLUSION: 1. Limited suboptimal exam. The cecum and right colon could not be opacified despite repeated attempts. 2. Residual stool and mild to moderate diverticulosis. Guevara Crowell MD Abdomen/Pelvis CT 05/02/17 0000 Signed Impressions: Service Date/Time: Tuesday, May 02, 2017 19:58 - CONCLUSION: 1. Nonspecific bowel gas pattern remains with contrast noted in the colon from the recent Gastrografin enema. The cecum remains distended. A rectal catheter is present. 2. No free air or fluid. 3. Small pleural effusions with mild consolidation in the lung bases. 4. Stable small adrenal masses likely representing adenomas. 5. Small nonobstructing left renal calculus. Guevara Crowell MD Catheter Placement X-Ray 05/01/17 0000 Signed Impressions: Service Date/Time: Monday, May 01, 2017 11:45 - CONCLUSION: Uncomplicated line placement as above. Brian Mcmanus MD Renal Ultrasound 04/20/17 0000 Signed Impressions: Service Date/Time: April 15:07 - CONCLUSION: 1. There is no hydronephrosis. 2. Stable 8mm nonobstructing left renal stone. Duncan Avery MD Head CT 04/19/17 0702 Signed Impressions: Service Date/Time: Wednesday, April 19, 2017 07:29 - CONCLUSION: 1. Cerebral white matter hypodensity characteristic of chronic microvascular ischemic disease. 2. No evidence of acute infarct, hemorrhage, mass or edema. Renato Coughlin MD Last Impressions Chest X-Ray 05/06/17 0000 Signed Impressions: Service Date/Time: Saturday, May 06, 2017 03:22 - CONCLUSION: Left IJ central venous catheter courses superiorly in the region of the SVC with the tip in the region of distal right internal jugular vein or right brachiocephalic vein. This could be retracted 5 cm. No evidence of pneumothorax. Hussain Green MD Abdomen X-Ray 05/04/17 0600 Signed Impressions: Service Date/Time: May 06:03 - CONCLUSION: Contrast through to the rectum. Basically stable dilatation of the proximal colon Duncan Delgado MD Enema w/Water Soluble 05/02/17 0000 Signed Impressions: Service Date/Time: Tuesday, May 02, 2017 08:02 - CONCLUSION: 1. Limited suboptimal exam. The cecum and right colon could not be opacified despite repeated attempts. 2. Residual stool and mild to moderate diverticulosis. Guevara Crowell MD Abdomen/Pelvis CT 05/02/17 0000 Signed Impressions: Service Date/Time: Tuesday, May 02, 2017 19:58 - CONCLUSION: 1. Nonspecific bowel gas pattern remains with contrast noted in the colon from the recent Gastrografin enema. The cecum remains distended. A rectal catheter is present. 2. No free air or fluid. 3. Small pleural effusions with mild consolidation in the lung bases. 4. Stable small adrenal masses likely representing adenomas. 5. Small nonobstructing left renal calculus. Guevara Crowell MD Catheter Placement X-Ray 05/01/17 0000 Signed Impressions: Service Date/Time: Monday, May 01, 2017 11:45 - CONCLUSION: Uncomplicated line placement as above. Brian Mcmanus MD Renal Ultrasound 04/20/17 0000 Signed Impressions: Service Date/Time: April 15:07 - CONCLUSION: 1. There is no hydronephrosis. 2. Stable 8mm nonobstructing left renal stone. Duncan Avery MD Head CT 04/19/17 0702 Signed Impressions: Service Date/Time: Wednesday, April 19, 2017 07:29 - CONCLUSION: 1. Cerebral white matter hypodensity characteristic of chronic microvascular ischemic disease. 2. No evidence of acute infarct, hemorrhage, mass or edema. Renato Coughlin MD Objective Remarks GENERAL: 82-year-old female, sitting up in ISC bed on CPAP via ETT. SKIN: Warm and dry. HEAD: Atraumatic. Normocephalic. EYES: Pupils equal and round. No scleral icterus. No injection or drainage. ENT: No nasal bleeding or discharge. Mucous membranes pink and moist. NECK: Trachea midline. No JVD. CARDIOVASCULAR: Irregularly irregular, afib on the monitor, rate primarily in the 90s, occasionally brief RVR in the 140s comes back. No murmurs rubs or gallops. RESPIRATORY: No accessory muscle use. Breath sounds equal bilaterally. Coarse bibasilar GASTROINTESTINAL: Abdomen obese, soft, nontender. Bowel sounds hypoactive. MUSCULOSKELETAL: Extremities without clubbing, cyanosis. 1+ edema all extremities, anasarca. VASC: Right subclavian permacath in place with dressing clean/dry/intact. NEUROLOGICAL: Awake and alert, makes eye contact and nods appropriately. Communicates in writiing. No obvious cranial nerve deficits. Moves all 4 extremities spontaneously. Procedures 05/10 - IR for permacath 05/11 EGD Date of Insertion: May 05, 2017 Date of Removal: May 07, 2017 Line: Central Venous Catheter Side: Left Location: Jugular A/P Assessment and Plan NEURO/PSYCH: Acute metabolic encephalopathy-resolved - Propofol for for vent synchrony while intubated. Patient currently has propofol on hold continuous CPAP trials denies discomfort - Goal RASS 0 - Daily sedation vacation - CT of the head negative for acute findings -Gabapentin 100 twice a day has been on hold. - Morphine when necessary pain (held) receiving only as needed dosing, while continuing CPAP - Tylenol 650 mg every 6 hours when necessary for pain RESP: Acute hypoxemic respiratory failure Pneumonia COPD with exacerbation Restrictive lung disease Failure to wean - Extubated 04/21. Reintubated 05/05 Mechanical ventilation day #11. - Tolerating CPAP 15 over 5 but does not tolerate decrease pressure support, RSBI 120s. Appears will need trach and patient and daughter agreeable. - PRVC 18/500/ Ventilator bundle -DuoNebs CV: Chronic A. fib- rate controlled Transient hypotension Hypertension Chest pain- resolved -Still with intermittent RVR, increase diltiazem 90 mg q6 , continue metoprolol 50 mg twice a day. 05/07- digoxin level 1.3 . Digoxin has been on hold in view of ESRD but may need to resume if RVR persists. -Holding Apixaban currently due to anemia, GI bleeding. - PPN @ 42cc/hr started on 05/10 - On atorvastatin 20 mg daily for dyslipidemia. - ASA on hold due to GI bleeding. - Dr. Cuevas evaluated 05/12 due to chest pain and recommended conservative management. Signed off. -2-D echo ild concentric LVH.EF 60-65%. -Lisinopril patient's home med has been discontinued in the setting of CKD. GI: Colonic ileus Melena GI Bleed Gastrografin enema 05/02. Proximal colonic dilatation. Patient is having bowel movements. No abdominal pain Famotidine for GI prophylaxis 05/11 EGD - normal esophagus, normal stomach, normal duodenal mucosa to the second portion 05/08 repeat KUB-mildly dilated ascending and transverse colon. Distention unchanged, but transverse colon distally more dilated 05/09 PPN 42cc/hr, and lipids Colonoscopy 05/[address] Hernández - large internal hemorrhoids felt to be source of bleeding.. Diverticulum in the sigmoid colon. Significant amount of stool within the colon. Recommended repeat colonoscopy in 6 months. Colorectal surgery initially consulted 05/01/17, Dr. Tam. Reconsulted colorectal surgery Repeat KUB today. Discussing with GI regarding tube feeds. RENAL: Acue on chronic kidney disease Secondary hyperparathyroidism Hematuria - IHD Monday/ and Monday per Nephrology -Dr. Grewal - R subclavian permacath 05/10/17 - Continue Calciferol 0.25 mcg daily for secondary hyperparathyroidism ID: Severe sepsis, resolved Pneumonia, resolved - Blood sputum and urine culture, all negative to date - Empiric cefepime 05/09 #7.. On levaquin 05/08 #8. ID discontinuing cefepime and Levaquin and will watch off antibiotics (Dr. Miesha Dias). No leukocytosis. Panculture if recurrent fever. -Was on micafungin 05/08-05/14 -pro-calcitonin elevation may be secondary to renal failure. HEME: Leukocytosis-resolved Normocytic anemia Acute blood loss anemia Thrombocytopenia Superficial thrombophlebitis, right cephalic vein. - 05/14 U/s BUE - Occlusive thrombus right cephalic vein. Neg LUE. -Holding apixaban -05/13 Transfuse 3 units packed red blood cells with dialysis, 05/12 patient received 1 unit PRBC -Monitor H&H every 12 hours. - HIT Ab negative and fibrinogen normal 05/14 ENDO: Hypothyroidism Type 2 diabetes - Continue levothyroxine at 125 g daily - Continue insulin detemir 10 units twice a day, medium dose sliding scale q 6 hours with glucose at target, currently on PPN. MSK: OA/OP Critical illness polyneuropathy Continue cholecalciferol 400 units twice a day PT evaluate and treat PT requested functional maintenance daily PROPH: - Bilateral lower extremity SCDs, heparin SQ placed on hold 05/13 due to acute blood loss anemia. LINES: -PIV LUE. Right subclavian permacath 05/10/17 Critical Care: This patient remains critically ill with one or more organ systems which are or may become a threat to life. I have spent in excess of 30 minutes discontinuously in the care and management of this patient. This time is exclusive of procedures, and includes, but is not limited to, evaluation of the patient, review of the medical record, discussions with family, consultants, nursing staff, or respiratory therapy, and documentation in the medical record. 05/07: Discussed with Vitaliy Sales and daughter. Full CODE STATUS. All family members acknowledge understanding and present in room during discussion. CODE STATUS will be changed. Palliative care consulted as well for goals of care. 05/08: Palliative of care meeting, patient instituted daughter as primary POA. 05/13: Extensive discussion with POA's son and daughter, and regarding need for blood transfusion, plan for colonoscopy tomorrow. Post colonoscopy, will attempt CPAP and SBT parameters,if unsuccessful, tentative plan for tracheostomy scheduled for Wednesday 05/16 Level 3 followup Karoline Gomez MD May 15, 2017 13:58
--- NOTE | 2017-05-15 14:37 | RADRPT ---
EXAM DATE/TIME: 05/15/2017 14:02 [facility] COMPARISON: CHEST SINGLE AP, May 11, 2017, 5:49. INDICATIONS : Respiratory failure MEDICAL HISTORY : Cardiovascular disease. Hypertension. Diabetes mellitus type 2. SURGICAL HISTORY : None. ENCOUNTER: Subsequent ACUITY: 3 weeks PAIN SCORE: 0/10 LOCATION: Bilateral chest FINDINGS: Dialysis catheter ET tube and nasogastric tube in good position. The heart is enlarged. Mild bibasi lar parenchymal changes are evident, progressed in the interval. CONCLUSION: Progression of bibasilar parenchymal changes. Boubacar Woodruff MD FACR on May 15, 2017 at 14:35 Board Certified Radiologist. This report was verified electronically.
--- NOTE | 2017-05-15 15:12 | HHI.PR ---
Addendum to Inpatient Note Addendum Reason: Additional Documentation Additional Information Discussed case with clinical lab scientist. Doppler UE positive for cephalic vein DVT. mment per primary team. No further fevers. WBC normal. Likely cause of low grade fevers is DVT. Will sign off please call back if any change in clinical condition or questions. Brigitte Dias MD May 15, 2017 15:12
--- NOTE | 2017-05-15 15:14 | RADRPT ---
EXAM DATE/TIME: 05/15/2017 14:08 [facility] COMPARISON: ABDOMEN KUB ONLY, May 11, 2017, 5:52. INDICATIONS : Rule out ileus. MEDICAL HISTORY : Cardiovascular disease. Hypertension. Diabetes mellitus type 2. SURGICAL HISTORY : None. ENCOUNTER: Subsequent ACUITY: 3 weeks PAIN SCORE: Non-responsive. LOCATION: Bilateral Abdomen FINDINGS: 3 portable supine views of the abdomen are limited due the patient's body habitus. Gas is seen within the cecum. No dilated loops of bowel observed. No gross organomegaly. Nasogastric tube is seen. Tip is in the region of the body the stomach. CONCLUSION: 1. Limited by the patient's body habitus. 2. No dilated loops of bowel observed. Claudio Reaves Jr., MD on May 15, 2017 at 15:11 Board Certified Radiologist. This report was verified electronically.
--- NOTE | 2017-05-15 16:37 | HHI.GIFU ---
Subjective Remarks Resting in bed, no further rectal bleeding. Awake on CPAP. Follows commands and nods appropriately. Plan is for tracheostomy tomorrow. D/W patient, , daughter EGD with PEG tube placement- procedure, risks, benefits and they would like to proceed. (Yamile Cosme) Objective Vitals I&O Vital Signs Date Time Temp Pulse Resp B/P (MAP) Pulse Ox O2 Delivery O2 Flow Rate FiO2 05/15/17 16:00 99.9 101 22 140/78 (98) 100 05/15/17 16:00 101 05/15/17 16:00 40 05/15/17 14:00 86 05/15/17 12:36 100 35 05/15/17 12:00 40 05/15/17 12:00 87 05/15/17 12:00 99.5 87 20 118/67 (84) 100 05/15/17 10:56 35 05/15/17 10:00 82 05/15/17 09:40 100 35 05/15/17 08:00 122 05/15/17 08:00 99.1 122 18 117/58 (77) 100 05/15/17 08:00 40 05/15/17 07:00 100 Mechanical Ventilator 40 05/15/17 06:00 82 05/15/17 04:06 100 40 05/15/17 04:00 40 05/15/17 04:00 99.1 94 18 107/60 (76) 100 05/15/17 04:00 94 05/15/17 02:00 102 05/15/17 01:31 100 40 05/15/17 00:00 99.2 84 18 106/56 (73) 100 05/15/17 00:00 40 05/15/17 00:00 84 05/14/17 23:06 100 40 05/14/17 22:00 88 05/14/17 20:36 100 40 05/14/17 20:36 40 05/14/17 20:00 98 05/14/17 20:00 40 05/14/17 20:00 98.9 98 20 120/74 (89) 100 05/14/17 19:00 100 Mechanical Ventilator 40 05/14/17 18:00 84 I/O 05/14/17 05/14/17 05/14/17 05/15/17 05/15/17 11/13/17 07:00 15:00 23:00 07:00 15:00 23:00 Intake Total 2120 ml 500 ml 1265 ml 977 ml Output Total 2300 ml 330 ml 100 ml Balance -180 ml 500 ml 935 ml 877 ml Intake Oral 2000 ml IV Total 1205 ml 777 ml Tube Irrigant 120 ml 60 ml 200 ml Other 500 ml Output Urine Total 150 ml 30 ml 100 ml Stool Total 2150 ml 300 ml # Bowel Movements 3 0 Laboratory Laboratory Tests Test 05/14/17 17:50 05/14/17 18:00 05/15/17 04:09 Potassium Level 2.4 3.7 Hemoglobin 9.0 8.8 Hematocrit 25.6 25.2 White Blood Count 5.9 Red Blood Count 2.83 Mean Corpuscular Volume 88.9 Mean Corpuscular Hemoglobin 30.9 Mean Corpuscular Hemoglobin Concent 34.8 Red Cell Distribution Width 15.8 Platelet Count 77 Mean Platelet Volume 9.7 Neutrophils (%) (Auto) 86.3 Lymphocytes (%) (Auto) 3.3 Monocytes (%) (Auto) 8.5 Eosinophils (%) (Auto) 1.4 Basophils (%) (Auto) 0.5 Neutrophils # (Auto) 5.1 Lymphocytes # (Auto) 0.2 Monocytes # (Auto) 0.5 Eosinophils # (Auto) 0.1 Basophils # (Auto) 0.0 CBC Comment AUTO DIFF Differential Total Cells Counted 100 Neutrophils % (Manual) 67 Band Neutrophils % 23 Lymphocytes % 4 Monocytes % 4 Basophils % 1 Neutrophils # (Manual) 5.4 Myelocytes 1 Differential Comment FINAL DIFF MANUAL Platelet Estimate LOW Platelet Morphology Comment ENLARGED Polychromasia 2.8 Blood Urea Nitrogen 32 Creatinine 4.43 Random Glucose 94 Calcium Level 7.7 Phosphorus Level 2.3 Magnesium Level 1.8 Sodium Level 138 Chloride Level 101 Carbon Dioxide Level 25.2 Anion Gap 12 Estimat Glomerular Filtration Rate 12 Date/Time Source Procedure Growth Status 04/19/17 16:54 Blood Peripheral Aerobic Blood Culture - Final NO GROWTH IN 5 DAYS Complete 04/19/17 16:54 Blood Peripheral Anaerobic Blood Culture - Final NO GROWTH IN 5 DAYS Complete 05/06/17 09:30 Stool Stool Stool Occult Blood (LAYLA) - Final HEMOCCULT POSITIVE Complete 05/07/17 16:24 Sputum Endotracheal Gram Stain - Final Complete 05/07/17 16:24 Sputum Endotracheal Sputum Culture - Final MODERATE GROWTH NORMAL RESPIRATORY GORDON Complete 04/19/17 06:15 Urine Clean Catch Urine Culture - Final NO GROWTH Complete Imaging Last Impressions Chest X-Ray 05/15/17 0000 Signed Impressions: Service Date/Time: Monday, May 15, 2017 14:02 - CONCLUSION: Progression of bibasilar parenchymal changes. Boubacar Woodruff MD FACR Abdomen X-Ray 05/15/17 0000 Signed Impressions: Service Date/Time: Monday, May 15, 2017 14:08 - CONCLUSION: 1. Limited by the patient's body habitus. 2. No dilated loops of bowel observed. Claudio Reaves Jr., MD Upper Extremity Ultrasound 05/14/17 0000 Signed Impressions: Service Date/Time: Sunday, May 14, 2017 20:08 - CONCLUSION: 1. Occlusive thrombus within the right cephalic vein. The remaining veins of the right upper extremity are patent. 2. There is no left upper extremity thrombus. Duncan Avery MD Lower Extremity Ultrasound 05/14/17 0000 Signed Impressions: Service Date/Time: Sunday, May 14, 2017 19:39 - CONCLUSION: No DVT is identified within either lower extremity. Duncan Avery MD Catheter Placement X-Ray 05/10/17 0730 Signed Impressions: Service Date/Time: Wednesday, May 10, 2017 13:32 - CONCLUSION: Uncomplicated exchange of Vas-Cath for hemodialysis permacath with fluoroscopic guidance as above. The catheter can be used immediately. Duncan Delgado MD Enema w/Water Soluble 05/02/17 0000 Signed Impressions: Service Date/Time: Tuesday, May 02, 2017 08:02 - CONCLUSION: 1. Limited suboptimal exam. The cecum and right colon could not be opacified despite repeated attempts. 2. Residual stool and mild to moderate diverticulosis. Guevara Corwell MD Abdomen/Pelvis CT 05/02/17 0000 Signed Impressions: Service Date/Time: Tuesday, May 02, 2017 19:58 - CONCLUSION: 1. Nonspecific bowel gas pattern remains with contrast noted in the colon from the recent Gastrografin enema. The cecum remains distended. A rectal catheter is present. 2. No free air or fluid. 3. Small pleural effusions with mild consolidation in the lung bases. 4. Stable small adrenal masses likely representing adenomas. 5. Small nonobstructing left renal calculus. Guevara Crowell MD Renal Ultrasound 04/20/17 0000 Signed Impressions: Service Date/Time: April 15:07 - CONCLUSION: 1. There is no hydronephrosis. 2. Stable 8mm nonobstructing left renal stone. Duncan Avery MD Head CT 04/19/17 0702 Signed Impressions: Service Date/Time: Wednesday, April 19, 2017 07:29 - CONCLUSION: 1. Cerebral white matter hypodensity characteristic of chronic microvascular ischemic disease. 2. No evidence of acute infarct, hemorrhage, mass or edema. Renato Coughlin MD Physical Exam HEENT: Normocephalic; atraumatic; no jaundice. Orotracheally intubated. CHEST: Diminished breath sounds. CARDIAC: Irregular ABDOMEN: Soft, obese, nontender; no hepatosplenomegaly; bowel sounds are present in all four quadrants EXTREMITIES: Anasarca SKIN: Normal; no rash; no jaundice. ACCOUNTS EXECUTIVE: Awake. Lethargic. Generalized weakness. Follows commands (Yamile Cosme) Assessment and Plan Plan ASSESSMENT: - Dysphagia, FEN. Plan is for tracheostomy tomorrow. Will plan for possible PEG tube placement tomorrow, although she also gets HD tomorrow and this may need to be done on Monday. D/W patient, , and daughter- procedure, risks, benefits and they would like to proceed. - Rectal bleeding. S/P Colonoscopy (05/14/17)---> 1. Diverticulum in the sigmoid colon 2. Large internal hemorrhoids likely the source of bleeding 3. Significant amount of stool ( greenish yellow) was present throughout the entire examined colon, no blood seen through the examined colon. Flexiseal removed. She has not had any further bleeding. [id number]. - Anemia. S/P EGD (05/11/17)----> The esophagus was otherwise normal. STOMACH: The stomach otherwise appeared normal. DUODENUM: The duodenal mucosa appeared normal in the bulb and second portion of the duodenum. S/P Colonoscopy (05/14/17)---> 1. Diverticulum in the sigmoid colon 2. Large internal hemorrhoids likely the source of bleeding 3. Significant amount of stool ( greenish yellow) was present throughout the entire examined colon, no blood seen through the examined colon. HH stable. 8.8/25.2. - Abdominal pain, colonic ileus. KUB (04/30/17)----> Gaseous dilatation of colon greatest in the cecal region measuring up to 13 cm. Differential diagnosis includes ileus. A distal colonic obstruction could have a similar appearance. Of note, she has a history of SBO and underwent exploratory laparotomy with lysis of adhesions for abdominal pain, probable small bowel obstruction (01/05/13) with Dr. Tam. S/P Gastrografin Enema (05/02/17)--> Limited suboptimal exam. The cecum and right colon could not be opacified despite repeated attempts. Residual stool and mild to moderate diverticulosis. CT Scan abdomen and pelvis without iv contrast (05/02/17)--> nonspecific bowel gas pattern remains with contrast noted in the colon from recent Gastrografin enema. The cecum remains distended. A rectal catheter. No free air or fluid. Small pleural effusions with mild consolidation in the lung bases. Stable small adrenal masses likely representing adenomas. Small nonobstructing left renal calculus. KUB (05/08/17)---> Persistent mild dilatation of the ascending colon and transverse colon. Findings favor ileus. There are no findings to indicate a small bowel obstruction. When correlating with prior CT it is felt unlikely to represent any colonic obstruction. S/P SSE. Rpt. KUB (05/15/17)---> Limited by the patient's body habitus, no dilated loops of bowel observed. Clinically, obese, but not distended and nontender. Still on PPN. Will start TF at 20cc/hr. - Acute on chronic kidney disease with electrolyte abnormalities. S/P Permacath , HD per renal - Respiratory failure, COPD Exacerbation, PNA. S/P Abx. Now intubated- on CPAP - Atrial fibrillation. 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 Landers and myself and this note is written on his behalf (Yamile Cosme) Physician Comments Patient seen and examined Agree with above Continue with current supportive care Monitor labs (Gabino Landers MD) Yamile Cosme May 15, 2017 16:37 Gabino Landers MD May 15, 2017 23:36
[2017-05-15] MEDS: DILTIAZEM HCL 90 MG TAB PO SCH ×2 (17:05→23:56)
--- NOTE | 2017-05-15 18:04 | HHI.NPPN ---
Subjective History of Present Illness Patient is a 82-year-old with sepsis, COPD, intubation, diabetes, acute renal failure and chronic kidney disease. Additional Remarks Patient remain on the vent, Objective Data Data 05/15/17 05/16/17 19:00 07:00 Intake Total 248 ml Balance 248 ml IV Total 248 ml Vital Signs Date Time Temp Pulse Resp B/P (MAP) Pulse Ox O2 Delivery O2 Flow Rate FiO2 05/15/17 18:00 103 05/15/17 17:15 100 35 05/15/17 16:00 99.9 101 22 140/78 (98) 100 05/15/17 16:00 101 05/15/17 16:00 40 05/15/17 14:00 86 05/15/17 12:36 100 35 05/15/17 12:00 40 05/15/17 12:00 87 05/15/17 12:00 99.5 87 20 118/67 (84) 100 05/15/17 10:56 35 05/15/17 10:00 82 05/15/17 09:40 100 35 05/15/17 08:00 122 05/15/17 08:00 99.1 122 18 117/58 (77) 100 05/15/17 08:00 40 05/15/17 07:00 100 Mechanical Ventilator 40 05/15/17 06:00 82 05/15/17 04:06 100 40 05/15/17 04:00 40 05/15/17 04:00 99.1 94 18 107/60 (76) 100 05/15/17 04:00 94 05/15/17 02:00 102 05/15/17 01:31 100 40 05/15/17 00:00 99.2 84 18 106/56 (73) 100 05/15/17 00:00 40 05/15/17 00:00 84 05/14/17 23:06 100 40 05/14/17 22:00 88 05/14/17 20:36 100 40 05/14/17 20:36 40 05/14/17 20:00 98 05/14/17 20:00 40 05/14/17 20:00 98.9 98 20 120/74 (89) 100 05/14/17 19:00 100 Mechanical Ventilator 40 -: 05/15/17 0409 05/15/17 0409 Physical Exam General Appearance: No Acute Distress, Comfortable, Obese Neck Neck Exam: Neck Supple Pulmonary Resp Exam: Decreased Bases Cardiology CV Exam: Arrhythmia Gastrointestinal/Abdomen GI Exam: Bowel Sounds Hypoactive Extremeties Extremities Exam: Trace Edema Neurologic Neuro Exam: Alert, Awake Psychiatric Psych Exam: Appropriate Responses Assessment/Plan Problem List: (1) Acute on chronic renal insufficiency ICD Codes: N28.9 - Disorder of kidney and ureter, unspecified; N18.9 - Chronic kidney disease, unspecified Status: Acute Plan: Patient is in acute renal failure and had chronic kidney disease ESRD with no recovery Eliquis on hold K corrected possible G tube/Trach planned HD in am no obvious source of bleed GI Bleed GI following HD T,T,S schedule (2) Hypertension ICD Codes: I10 - Hypertension Status: Acute Plan: Blood pressure was low (3) Diabetes ICD Codes: E11.9 - Type 2 diabetes mellitus without complications Status: Acute Plan: Continue to monitor (4) COPD with acute exacerbation ICD Codes: J44.1 - Chronic obstructive pulmonary disease with (acute) exacerbation Plan: extubated Problem Qualifiers (1) Diabetes: Tonja Grewal MD May 15, 2017 18:04
--- NOTE | 2017-05-15 19:26 | EKG ---
Date Performed: 05/14/2017 Time Performed: 21:49:54 PTAGE: 82 years EKG: Atrial fibrillation Extensive ST-T changes may be due to myocardial ischemia Abnormal ECG S lindsay PREVIOUS TRACING , no significant change noted PREVIOUS TRACIN05/12/2017 09.47 DOCTOR: Florina Cabral Interpretating Date/Time 05/15/2017 19:24:46
[2017-05-15] MEDS: diphenhydrAMINE HCL 25 MG CAP PO PRN (20:20)
[2017-05-15] MEDS: FAT EMULSION 20% INJ 250 ML (@10 mls/hr) IV SCH (20:20)
[2017-05-15] MEDS: SODIUM CHLORIDE 23.4% INJ 5.5 MEQ, SODIUM ACETATE INJ 29.5 MEQ, POTASSIUM CHLORIDE INJ ... IV SCH ×7 (20:20)
[2017-05-15] MEDS: ATORVASTATIN 20 MG TAB PO SCH (20:21)
[2017-05-15] MEDS: REMOVE OLD PATCH T-DERMAL SCH (21:00)
[2017-05-15 21:45] LABS: HEMATOCRIT 28.2 % (35.0-46.0)
[2017-05-15 21:46] LABS: REVIEW FLAG FINAL
[2017-05-16] VITALS (17 sets, daily range): BP systolic 100–114; BP diastolic 50–60; PULSE 71–105; RESP 18–19; TEMP 98.2–99.3; O2SAT 100
[2017-05-16] MEDS: CHLORHEXIDINE GLUCONATE 2 % 1 PACK (2 CLOTHS) TOP SCH (03:10)
[2017-05-16] MEDS: ARTIFICIAL TEARS OPTH SOLN 15 ML BTL EACH EYE SCH ×3 (05:12→22:00)
[2017-05-16] MEDS: LEVOTHYROXINE SODIUM 125 MCG TAB PO SCH (05:47)
[2017-05-16] MEDS: INSULIN ASPART SUPPLEMENTAL SCALE SQ SCH ×4 (05:47→17:19)
[2017-05-16] MEDS: DILTIAZEM HCL 90 MG TAB PO SCH ×3 (05:47→18:00)
[2017-05-16 05:59] LABS: BICARBONATE 22.9 MEQ/L (21.0-32.0); POTASSIUM 3.5 MEQ/L (3.5-5.1)
[2017-05-16] MEDS: SODIUM CHLORIDE 0.9% FLUSH 10 ML FLUSH IV FLUSH SCH ×2 (08:44→21:00)
[2017-05-16] MEDS: CHLORHEXIDINE 0.12% (ORAL KIT) 15 ML CUP MT SCH ×2 (08:44→20:00)
[2017-05-16] MEDS: LANSOPRAZOLE SOLUTAB 30 MG TAB NG SCH (08:44)
[2017-05-16] MEDS: MULTIVITAMINS/MINERALS THERAPEUTIC TAB PO SCH ×2 (08:45→20:28)
[2017-05-16] MEDS: METOPROLOL TARTRATE 50 MG TAB PO SCH ×2 (08:45→20:28)
[2017-05-16] MEDS: LACTOBACILLUS ACIDOPHILUS TAB PO SCH ×2 (08:45→11:48)
[2017-05-16] MEDS: CALCITRIOL 0.25 MCG CAP PO SCH (08:45)
[2017-05-16] MEDS: CHOLECALCIFEROL (VIT D3) 400 UNIT TAB PO SCH ×2 (08:45→20:28)
[2017-05-16] MEDS: INSULIN DETEMIR 100 UNITS/ML VIAL SQ SCH ×2 (08:46→21:00)
[2017-05-16] MEDS: NITROGLYCERIN 0.2 MG/HR PATCH T-DERMAL SCH (08:46)
[2017-05-16] MEDS: ACETAMINOPHEN 325 MG TAB PO PRN (08:48)
--- NOTE | 2017-05-16 11:33 | HHI.CCPN ---
Subjective Remarks/Hospital Course The patient is an 82 year old female past with past medical history significant for hypertension, atrial fibrillation, diabetes mellitus, obesity, hypothyroidism, hyperlipidemia, diabetic neuropathy, who was seen in ED 3 days ago bronchospasm. She has COPD/Asthma and restrictive lung disease related to her obesity. Patient was treated for reactive airway disease, given breathing treatments and was discharged on as needed inhalers. Patient was brought in today by her as she was having shortness of breath and on the way to the ED when she slumped over in the car. In the emergency department she showed agonal breathing, she was intubated for airway protection emergently. Patient was given Solu-Medrol and breathing treatments and was placed on the mechanical ventilation. Chest x-ray showed bilateral infiltrates concerning for pneumonia. CT of the head was negative. I evaluated the patient in the ICU. She is on minimal sedation and mild attempts to wake up and intermittently tries to follows commands. She still on high oxygen requirement FiO2 is 60% with a PEEP of 5. I have increased the PEEP to 10. I have started the patient on scheduled IV Solu-Medrol, DuoNeb breathing treatments, cefepime and azithromycin for probable pneumonia. 04/20 Remains intubated, off sedation following commands. Currently FiO2 had been weaned to 40%. Urine output 950 ml since admission. Start SBT, Bumex 1 mg IV x1. 04/21: Tolerating CPAP better today, Appears calm following commands. UO adequate, though creat increasing. Cultures remain negative 04/22: Extubated yesterday required BiPAP overnight. Currently on nasal cannula slightly tachypneic but able to talk in full sentences maintaining oxygen saturation 04/23: Breathing more comfortably today on nasal cannula. Daughter At the bedside. Urine output adequate, creatinine has slightly improved 05/05: Rapid response team was called due to patient's altered mental status and hypoxemia. She was immediately transferred to ICU with a blood gas showing severe hypercarbic acidosis and was immediately intubated. She also became slightly hypotensive requiring a central line placement and initiation of vasopressor therapy 05/06: Awake and alert but not following commands. Nods head but inappropriately to questions. CAM ICU positive. Sedation is currently been held. Off norepinephrine. Currently nothing by mouth. 05/07: Tmax 100.4 Patient awake following commands. Sedation off a greater than 24-hour. Discussion of CODE STATUS with patient and daughter, patient states she requests to be full code explanation provided in detail. CODE STATUS changed to full code. Sputum cultures pending. Empiric antibiotics initiated Levaquin and cefepime. Patient continues on CPAP trials. The patient lasted 13 hours yesterday on CPAP. Plan for Vas-Cath placement by interventional radiology scheduled for 05/10. 05/08: Patient continues on CPAP trials, alert and responsive, denies pain. Plan for obtaining SBT parameters today a successful will extubate. Sputum culture revealed initial preliminary results of budding yeasts, micafungin added to medication regimen. Patient's scheduled by IR placement of Vas-Cath in a.m.. Patient continues on Reglan and nothing by mouth status per GI, large amounts of diarrhea/loose stools, plan for KUB this afternoon. 05/09: Tmax 99.0. The patient tolerated CPAP trials continuation overnight, approximately 24 hours. SBT performed last evening,WNL. Patient remains awake , alert and interactive. The patient is scheduled for permacath placement via IR this a.m. to be followed by dialysis. Plan for SBT trial postdialysis with a trial of extubation. Throughout the night the patient became tachycardic, with systolic blood pressure greater than 160s. Metoprolol resumed. Patient complained of throat pain early this a.m. relieved with Tylenol. GI following, obtained repeat KUB yesterday we'll await recommendations. Plan to discontinue IV fluids and initiate PPN. 05/10: Afebrile. Patient underwent IHD with 3 L fluid removal yesterday. Plan for permacath placement today. Patient noted to be continued hypertensive, Cardizem home medication resumed. Patient underwent SBT trials postdialysis yesterday with subsequent failure unable to extubate. Plan for repeat SBT parameters today, with anticipation of possible extubation. 05/11: Remains orally intubated on mechanical ventilation. EGD unremarkable 05/12: Remains orally intubated on mechanical ventilation. Had chest pain yesterday with EKG changes in the lateral leads. Troponin borderline 0.51. Hemoglobin 6.6 for which 2 units PRBCs were transfused yesterday. Patient was noted to have rectal bleeding this morning for which GI was notified. 05/13: Hemoglobin 5.7. Patient to receive 3 units packed red blood cells with dialysis today. Last evening the patient continued into A. fib heart rate in the 130s received 1 dose of 0.5 mg of morphine, for chest pain during the night , PRN Beta Blockers. Continues with Nitropaste. Patient denies abdominal pain. Tentative plan for colonoscopy tomorrow with Dr. Hernández. 05/14: Tmax 100.2. Patient received GoLYTELY in for scheduled colonoscopy today. Patient had 2 L stool output overnight, maroon-colored. Repeat hemoglobin performed stable 9.5. A. fib now rate controlled. Patient was noted to have hematuria during the night, heparin SQ prophylaxis was discontinued yesterday secondary to bleeding however the patient receives heparin during the dialysis. Fibrinogen and HIT panel labs pending. Reconsulted colorectal surgery, initial consult placed 05/01/[address] Tam. Patient denies abdominal pain. 05/15 Colonscopy yesterday with large internal hemorrhoids, large amount of stool in colon. Dignishield removed after colonscopy and no BM since. Patient denies abdominal pain. CPAP today and tolerates 15/5 but RSBI in 120s when pressure support lowered. Discussed with patient and daughter at bedside and they are anticipating trach and agreeable to proceed. Afib with occasional RVR Subjective 05/16: hgb stable. plan for trach today. Objective Vital Signs Date Time Temp Pulse Resp B/P (MAP) Pulse Ox O2 Delivery O2 Flow Rate FiO2 05/16/17 10:00 82 05/16/17 08:40 100 35 05/16/17 08:00 99.3 18 100/58 (72) 05/16/17 07:00 Mechanical Ventilator Intake and Output 05/16/17 05/16/17 05/17/17 08:00 16:00 00:00 Output Total 0 ml Balance 0 ml Result Diagram: 05/15/17210605/16/17 0506 Imaging Last Impressions Chest X-Ray 05/08/17 0600 Signed Impressions: Service Date/Time: Monday, May 08, 2017 03:23 - CONCLUSION: 1. Cardiomegaly and findings of vascular congestion without overt failure. There has been no significant change when compared to the prior exam. Brian Mcmanus MD Abdomen X-Ray 05/08/17 0000 Signed Impressions: Service Date/Time: Monday, May 08, 2017 15:33 - CONCLUSION: Persistent mild dilatation of the ascending colon and transverse colon. Findings favor ileus. There are no findings to indicate small bowel obstruction. When correlating with prior CT it is felt unlikely to represent any colonic obstruction. Duncan Avery MD Enema w/Water Soluble 05/02/17 0000 Signed Impressions: Service Date/Time: Tuesday, May 02, 2017 08:02 - CONCLUSION: 1. Limited suboptimal exam. The cecum and right colon could not be opacified despite repeated attempts. 2. Residual stool and mild to moderate diverticulosis. Guevara Crowell MD Abdomen/Pelvis CT 05/02/17 0000 Signed Impressions: Service Date/Time: Tuesday, May 02, 2017 19:58 - CONCLUSION: 1. Nonspecific bowel gas pattern remains with contrast noted in the colon from the recent Gastrografin enema. The cecum remains distended. A rectal catheter is present. 2. No free air or fluid. 3. Small pleural effusions with mild consolidation in the lung bases. 4. Stable small adrenal masses likely representing adenomas. 5. Small nonobstructing left renal calculus. Guevara Crowell MD Catheter Placement X-Ray 05/01/17 0000 Signed Impressions: Service Date/Time: Monday, May 01, 2017 11:45 - CONCLUSION: Uncomplicated line placement as above. Brian Mcmanus MD Renal Ultrasound 04/20/17 0000 Signed Impressions: Service Date/Time: April 15:07 - CONCLUSION: 1. There is no hydronephrosis. 2. Stable 8mm nonobstructing left renal stone. Duncan Avery MD Head CT 04/19/17 0702 Signed Impressions: Service Date/Time: Wednesday, April 19, 2017 07:29 - CONCLUSION: 1. Cerebral white matter hypodensity characteristic of chronic microvascular ischemic disease. 2. No evidence of acute infarct, hemorrhage, mass or edema. Renato Coughlin MD Last Impressions Chest X-Ray 05/06/17 0000 Signed Impressions: Service Date/Time: Saturday, May 06, 2017 03:22 - CONCLUSION: Left IJ central venous catheter courses superiorly in the region of the SVC with the tip in the region of distal right internal jugular vein or right brachiocephalic vein. This could be retracted 5 cm. No evidence of pneumothorax. Hussain R Green, MD Abdomen X-Ray 05/04/17 0600 Signed Impressions: Service Date/Time: May 06:03 - CONCLUSION: Contrast through to the rectum. Basically stable dilatation of the proximal colon Duncan Delgado MD Enema w/Water Soluble 05/02/17 0000 Signed Impressions: Service Date/Time: Tuesday, May 02, 2017 08:02 - CONCLUSION: 1. Limited suboptimal exam. The cecum and right colon could not be opacified despite repeated attempts. 2. Residual stool and mild to moderate diverticulosis. Guevara Crowell MD Abdomen/Pelvis CT 05/02/17 0000 Signed Impressions: Service Date/Time: Tuesday, May 02, 2017 19:58 - CONCLUSION: 1. Nonspecific bowel gas pattern remains with contrast noted in the colon from the recent Gastrografin enema. The cecum remains distended. A rectal catheter is present. 2. No free air or fluid. 3. Small pleural effusions with mild consolidation in the lung bases. 4. Stable small adrenal masses likely representing adenomas. 5. Small nonobstructing left renal calculus. Guevara Crowell MD Catheter Placement X-Ray 05/01/17 0000 Signed Impressions: Service Date/Time: Monday, May 01, 2017 11:45 - CONCLUSION: Uncomplicated line placement as above. Brian Mcmanus MD Renal Ultrasound 04/20/17 0000 Signed Impressions: Service Date/Time: April 15:07 - CONCLUSION: 1. There is no hydronephrosis. 2. Stable 8mm nonobstructing left renal stone. Duncan Avery MD Head CT 04/19/17 0702 Signed Impressions: Service Date/Time: Wednesday, April 19, 2017 07:29 - CONCLUSION: 1. Cerebral white matter hypodensity characteristic of chronic microvascular ischemic disease. 2. No evidence of acute infarct, hemorrhage, mass or edema. Renato Coughlin MD Objective Remarks GENERAL: 82-year-old female, sitting up in ISC bed on CPAP via ETT. SKIN: Warm and dry. HEAD: Atraumatic. Normocephalic. EYES: Pupils equal and round. No scleral icterus. No injection or drainage. ENT: No nasal bleeding or discharge. Mucous membranes pink and moist. NECK: Trachea midline. No JVD. CARDIOVASCULAR: Irregularly irregular, afib on the monitor RESPIRATORY: No accessory muscle use. Breath sounds equal bilaterally. Coarse bibasilar GASTROINTESTINAL: Abdomen obese, soft, nontender. Bowel sounds hypoactive. MUSCULOSKELETAL: Extremities without clubbing, cyanosis. 1+ edema all extremities, anasarca. VASC: Right subclavian permacath in place with dressing clean/dry/intact. NEUROLOGICAL: Awake and alert, makes eye contact and nods appropriately. Communicates in writiing. No obvious cranial nerve deficits. Moves all 4 extremities spontaneously. Procedures 05/10 - IR for permacath 05/11 EGD A/P Assessment and Plan NEURO/PSYCH: Acute metabolic encephalopathy-resolved - Propofol for for vent synchrony while intubated. Patient currently has propofol on hold continuous CPAP trials denies discomfort - Goal RASS 0 - Daily sedation vacation - CT of the head negative for acute findings -Gabapentin 100 twice a day has been on hold. - Morphine when necessary pain (held) receiving only as needed dosing, while continuing CPAP - Tylenol 650 mg every 6 hours when necessary for pain RESP: Acute hypoxemic respiratory failure Pneumonia COPD with exacerbation Restrictive lung disease Failure to wean - Extubated 04/21. Reintubated 05/05 Mechanical ventilation day #12. - Tolerating CPAP 15 over 5 but does not tolerate decrease pressure support, RSBI 120s. - trach planned for today 05/16. Ventilator bundle -DuoNebs CV: Chronic A. fib- rate controlled Transient hypotension Hypertension Chest pain- resolved -Still with intermittent RVR, increase diltiazem 90 mg q6 , continue metoprolol 50 mg twice a day. 05/07- digoxin level 1.3 . Digoxin has been on hold in view of ESRD but may need to resume if RVR persists. -Holding Apixaban currently due to anemia, GI bleeding. - PPN @ 42cc/hr started on 05/10 - On atorvastatin 20 mg daily for dyslipidemia. - ASA on hold due to GI bleeding. - Dr. Cuevas evaluated 05/12 due to chest pain and recommended conservative management. Signed off. -2-D echo ild concentric LVH.EF 60-65%. -Lisinopril patient's home med has been discontinued in the setting of CKD. GI: Colonic ileus Melena GI Bleed Gastrografin enema 05/02. Proximal colonic dilatation. Patient is having bowel movements. No abdominal pain Famotidine for GI prophylaxis 05/11 EGD - normal esophagus, normal stomach, normal duodenal mucosa to the second portion 05/08 repeat KUB-mildly dilated ascending and transverse colon. Distention unchanged, but transverse colon distally more dilated 05/09 PPN 42cc/hr, and lipids Colonoscopy 05/[address] Hernández - large internal hemorrhoids felt to be source of bleeding.. Diverticulum in the sigmoid colon. Significant amount of stool within the colon. Recommended repeat colonoscopy in 6 months. Colorectal surgery initially consulted 05/01/17, Dr. Tam. Reconsulted colorectal surgery RENAL: Acue on chronic kidney disease Secondary hyperparathyroidism Hematuria - IHD Monday/ and Monday per Nephrology -Dr. Grewal - R subclavian permacath 05/10/17 - Continue Calciferol 0.25 mcg daily for secondary hyperparathyroidism ID: Severe sepsis, resolved Pneumonia, resolved - Blood sputum and urine culture, all negative to date - s/p Cefepime and Levaqin. watch off antibiotics (Dr. Miesha Dias). No leukocytosis. Panculture if recurrent fever. -Was on micafungin 05/08-05/14 -pro-calcitonin elevation may be secondary to renal failure. HEME: Leukocytosis-resolved Normocytic anemia Acute blood loss anemia Thrombocytopenia Superficial thrombophlebitis, right cephalic vein. - 05/14 U/s BUE - Occlusive thrombus right cephalic vein. Neg LUE. -Holding apixaban -05/13 Transfuse 3 units packed red blood cells with dialysis, 05/12 patient received 1 unit PRBC -daily cbc. - HIT Ab negative and fibrinogen normal 05/14 - despite occlusive thrombus, recent GI bleeding makes her high risk for anticoagulation. risk/benefit is in favor of holding anticoagulation. ENDO: Hypothyroidism Type 2 diabetes - Continue levothyroxine at 125 g daily - Continue insulin detemir 10 units twice a day, medium dose sliding scale q 6 hours with glucose at target, currently on PPN. MSK: OA/OP Critical illness polyneuropathy Continue cholecalciferol 400 units twice a day PT evaluate and treat PT requested functional maintenance daily PROPH: - Bilateral lower extremity SCDs, heparin SQ placed on hold 05/13 due to acute blood loss anemia. LINES: -PIV LUE. Right subclavian permacath 05/10/1705/07: Discussed with Vitaliy Sales and daughter. Full CODE STATUS. All family members acknowledge understanding and present in room during discussion. CODE STATUS will be changed. Palliative care consulted as well for goals of care. 05/08: Palliative of care meeting, patient instituted daughter as primary POA. 05/13: Extensive discussion with POA's son and daughter, and regarding need for blood transfusion, plan for colonoscopy tomorrow. Post colonoscopy, will attempt CPAP and SBT parameters,if unsuccessful, tentative plan for tracheostomy scheduled for Wednesday 05/16 Quan Mathews MD May 16, 2017 11:33
[2017-05-16] MEDS ORDERED: MIDAZOLAM HCL 5 MG/ML VIAL (1 ML) IV PUSH ONE (11:45)
[2017-05-16] MEDS ORDERED: CISATRACURIUM BESYLATE 20 MG/10 ML VIAL IV ONE (11:45)
[2017-05-16] MEDS ORDERED: fentaNYL CITRATE 250 MCG/5 ML AMP IV PUSH ONE (11:45)
[2017-05-16] MEDS ORDERED: CISATRACURIUM BESYLATE 10 MG/5 ML VIAL IV PUSH ONE (14:00)
--- NOTE | 2017-05-16 14:37 | HHI.NPPN ---
Subjective History of Present Illness Patient is a 82-year-old with sepsis, COPD, intubation, diabetes, acute renal failure and chronic kidney disease. Additional Remarks Patient remain on the vent, Objective Data Data 05/16/17 05/17/17 19:00 07:00 Output Total 3000 ml Balance -3000 ml Hemodialysis 3000 ml Vital Signs Date Time Temp Pulse Resp B/P (MAP) Pulse Ox O2 Delivery O2 Flow Rate FiO2 05/16/17 12:00 35 05/16/17 12:00 96 05/16/17 12:00 98.9 96 18 114/60 (78) 100 05/16/17 10:00 82 05/16/17 08:40 100 35 05/16/17 08:00 78 05/16/17 08:00 99.3 78 18 100/58 (72) 100 05/16/17 08:00 35 05/16/17 07:00 100 Mechanical Ventilator 40 05/16/17 06:00 72 05/16/17 04:08 100 35 05/16/17 04:00 98.6 71 18 110/56 (74) 100 05/16/17 04:00 71 05/16/17 04:00 35 05/16/17 02:00 78 05/16/17 00:00 35 05/16/17 00:00 75 05/16/17 00:00 98.8 80 18 105/52 (69) 100 05/15/17 23:57 100 35 05/15/17 22:00 73 05/15/17 20:00 97.8 68 18 101/46 (64) 100 05/15/17 20:00 68 05/15/17 20:00 35 05/15/17 19:40 100 35 05/15/17 19:00 100 Mechanical Ventilator 40 05/15/17 18:00 103 05/15/17 17:15 100 35 05/15/17 16:00 99.9 101 22 140/78 (98) 100 05/15/17 16:00 101 05/15/17 16:00 40 -: 05/15/17 2107 05/16/17 0506 Physical Exam General Appearance: No Acute Distress, Comfortable, Obese Neck Neck Exam: Neck Supple Pulmonary Resp Exam: Decreased Bases Cardiology CV Exam: Arrhythmia Gastrointestinal/Abdomen GI Exam: Bowel Sounds Hypoactive Extremeties Extremities Exam: Trace Edema Neurologic Neuro Exam: Alert, Awake Psychiatric Psych Exam: Appropriate Responses Assessment/Plan Problem List: (1) Acute on chronic renal insufficiency ICD Codes: N28.9 - Disorder of kidney and ureter, unspecified; N18.9 - Chronic kidney disease, unspecified Status: Acute Plan: Patient is in acute renal failure and had chronic kidney disease ESRD with no recovery Eliquis on hold Hemodialysis was done 3 L was removed G tube/Trach planned no obvious source of bleed GI Bleed GI following HD T,T,S schedule (2) Hypertension ICD Codes: I10 - Hypertension Status: Acute Plan: Blood pressure was low (3) Diabetes ICD Codes: E11.9 - Type 2 diabetes mellitus without complications Status: Acute Plan: Continue to monitor (4) COPD with acute exacerbation ICD Codes: J44.1 - Chronic obstructive pulmonary disease with (acute) exacerbation Plan: extubated Problem Qualifiers (1) Diabetes: Tonja Grewal MD May 16, 2017 14:37
--- NOTE | 2017-05-16 16:24 | PD.PROCEDR ---
Procedure Note Procedure DX: Chronic Respiratory Failure OP: Bronchoscopy (59491) Procedure: Time out. Through side port in mechanical ventilation circuit the bronchoscope was introduced. Large amounts of thick white tenacious sputum were suction from both right and left bronchial segments. The main trachea was mildly inflamed. The scope and orotracheal tube were withdrawn to the level of the cricoid as ventilation continued. Visualization was provided for percutaneous tracheostomy insertion by another team. After trach insertion the scope was passed down the new airway to confirm good trach tube position in the main trachea. Ventilation was converted to the new trach tube. Sats were maintained > 90% throughout the procedure. Asher Taylor MD May 16, 2017 16:24
--- NOTE | 2017-05-16 16:58 | PD.PROCEDR ---
Procedure Note Procedure Percutaneous Dilation Tracheostomy Tube Placement Diagnosis: Subacute respiratory failure Indications: Subacute respiratory failure with failure to wean from mechanical ventilation Anesthesia: Versed 10 mg IV, fentanyl 100 g IV Neuromuscular Blockade: Cisatracurium 20 mg IV Anesthesia was provided by the bedside RN Description of the Procedure: The patient was sedated and paralyzed. The patient was positioned in the supine position with a chest roll. The patient's neck was slightly extended. Landmarks were palpated and the anatomy of the anterior neck was deemed normal. A time out procedure was performed. The patient was placed on a volume control mode of ventilation, on 100% FiO2. The patient was prepped and draped sterilely. A bronchoscope was inserted into the endotracheal tube for endoscopic guidance (see separate bronchoscopy procedure note). After negative aspiration, 1% lidocaine with 1:100k epinephrine was injected subcutaneously in the midline neck using a 21g needle for local anesthesia. An approximately 2cm skin incision was made using a #15 blade. The cricoid cartilage, thyroid tissue , and tracheal rings were palpated in the midline. Under direct bronchoscopic guidance, the cuff of the endotracheal tube was deflated and the endotracheal tube was retracted to a level above the level of the skin incision. At this point, a 15g introducer needle/catheter was advanced midline under negative aspiration with saline filled syringe until bubbles were seen and the needle and catheter were visualized in the lumen of the trachea. The needle was withdrawn leaving the catheter in place. A 0.052 in diameter J-shaped guidewire was advanced through the catheter into the lumen of the trachea, under direct bronchoscopic visualization. Using a modified Seldinger technique , a 14 Fr, 4.5 cm introducer dilator was used, followed by a Blue Rhino Percutaneous Tracheostomy Dilator, and finally a 28 Fr tracheostomy loading catheter with 8.0 Cuffed Shiley tracheostomy tube. The loading catheter and guidewire were removed and the tracheostomy tube was confirmed in the lumen of the trachea with bronchoscopy, end-tidal CO2, and returning volumes on the ventilator. The tracheostomy was sewn to the skin with interrupted 2.0 Prolene sutures, and a tracheostomy tie was applied to the skin. There were no immediate complications. There was minimal EBL. A chest x-ray has been ordered. High Pressure Kettle Operator: Dr. Javon Taylor I personally performed the procedure. Quan Mathews MD May 16, 2017 16:58
[2017-05-16] MEDS ORDERED: CISATRACURIUM BESYLATE 20 MG/10 ML VIAL IV PUSH ONE (17:00)
[2017-05-16 17:25] LABS: AUTOMATED NEUTROPHIL # 4.1 TH/MM3 (1.8-7.7); BASOPHIL % 0.4 % (0.0-2.0); EOSINOPHIL # 0.1 TH/MM3 (0-0.4); HEMATOCRIT 25.2 % (35.0-46.0); LYMPH % 6.9 % (9.0-44.0); LYMPHOCYTE # 0.3 TH/MM3 (1.0-4.8); MEAN CELL VOLUME 89.6 FL (80.0-100.0); MEAN CORPUSCULAR HEMOGLOBIN 29.8 PG (27.0-34.0); MEAN CORPUSCULAR HGB CONC 33.3 % (32.0-36.0); MONO % 9.6 % (0.0-8.0); NEUT % 81.1 % (16.0-70.0); PLATELET COUNT 84 TH/MM3 (150-450); RED BLOOD COUNT 2.82 MIL/MM3 (4.00-5.30); RED CELL DISTRIBUTION WIDTH 16.8 % (11.6-17.2); WHITE BLOOD COUNT 5.1 TH/MM3 (4.0-11.0)
[2017-05-16 17:29] LABS: HEMO FLAGS AUTO DIFF
[2017-05-16 18:24] LABS: BANDS 6 % (0-6); CORRECTED NUCLEATED RBC 2 /100 WBC (0-0); EOSINOPHILS 1 % (0-4); METAMYELOCYTES 1 % (0-1); NEUTROPHIL # MANUAL DIFF 4.2 TH/MM3 (1.8-7.7); POLYS (SEG NEUTROPHILS) 76 % (16-70); WBC DIFF SAMPLE 100
[2017-05-16 18:30] LABS: PLATELET ESTIMATE SMEAR LOW (NORMAL); PLATELET MORPHOLOGY ENLARGED (NORMAL); SCAN/DIFF FINAL DIFF MANUAL; TOXIC VACUOLATION PRESENT (NONE SEEN)
--- NOTE | 2017-05-16 18:54 | PD.PROCEDR ---
GI Procedure REFERRING PHYSICIAN PROCEDURE PERFORMED EGD with PEG placement INDICATION FOR PROCEDURE Dysphagia, respiratory failure PROCEDURE: The procedure, risks and benefits were discussed with Ms. Sales and informed consent was obtained. Anesthesia sedated her with Diprivan. She was placed in the left lateral decubitus position. EGD: The Pentax videoscope was introduced through the oropharynx and advanced to the second portion of the duodenum under direct visualization. Retroflexion was performed in the stomach. FINDINGS: The esophagus this appeared to be unremarkable with normal limits The stomach this too appeared to be unremarkable with normal limits The duodenum this too appeared to be unremarkable and within normal limits Following the evaluation of the stomach and the duodenum the stomach was insufflated with air and the area of PEG placement was identified through indentation and transillumination the area was prepped and draped in usual fashion 5 cc of lidocaine were injected locally a small incision was made then an Angiocath was passed into the stomach through which a guidewire was passed this was retrieved with the scope into that a PEG tube was attached and pulled into place and thereafter secured in usual fashion The patient tolerated procedure well and there are no immediate complications ESTIMATED BLOOD LOSS: None SPECIMENS REMOVED: None COMPLICATIONS: None IMPRESSION: Normal EGD Successful PEG placement 1. May use PEG tube for medications today 2. May start feeding tomorrow 3. May obtain nutritional consult for tube feeding 4. Flush tube with 50 cc of water every 4-6 hours 5. Always flush tube after feedings 6. Apply abdominal binder as necessary 7. Clamp G-tube after use and flush. Gabino Landers MD May 16, 2017 18:54
[2017-05-16] MEDS: FAT EMULSION 20% INJ 250 ML (@10 mls/hr) IV SCH (20:00)
[2017-05-16] MEDS: SODIUM CHLORIDE 23.4% INJ 5.5 MEQ, SODIUM ACETATE INJ 29.5 MEQ, POTASSIUM CHLORIDE INJ ... IV SCH ×7 (20:00)
[2017-05-16] MEDS: ATORVASTATIN 20 MG TAB PO SCH (20:28)
[2017-05-16] MEDS: MORPHINE SULFATE 2 MG/ML INJ IV PRN (20:29)
[2017-05-16] MEDS: REMOVE OLD PATCH T-DERMAL SCH (21:00)
[2017-05-17] VITALS (18 sets, daily range): BP systolic 97–147; BP diastolic 47–73; PULSE 77–124; RESP 18–28; TEMP 98.7–99.9; O2SAT 96–100
[2017-05-17] MEDS: ACETAMINOPHEN/HYDROcodone 325 MG/5 MG TAB PO PRN ×2 (03:32→20:19)
[2017-05-17] MEDS: CHLORHEXIDINE GLUCONATE 2 % 1 PACK (2 CLOTHS) TOP SCH (04:00)
[2017-05-17 05:37] LABS: HEMATOCRIT 24.8 % (35.0-46.0); MEAN CELL VOLUME 90.2 FL (80.0-100.0); MEAN CORPUSCULAR HEMOGLOBIN 29.4 PG (27.0-34.0); MEAN CORPUSCULAR HGB CONC 32.6 % (32.0-36.0); PLATELET COUNT 87 TH/MM3 (150-450); RED BLOOD COUNT 2.75 MIL/MM3 (4.00-5.30); RED CELL DISTRIBUTION WIDTH 16.4 % (11.6-17.2); WHITE BLOOD COUNT 5.2 TH/MM3 (4.0-11.0)
[2017-05-17 05:41] LABS: REVIEW FLAG FINAL
[2017-05-17 05:55] LABS: BICARBONATE 25.5 MEQ/L (21.0-32.0); POTASSIUM 3.4 MEQ/L (3.5-5.1)
[2017-05-17] MEDS: LEVOTHYROXINE SODIUM 125 MCG TAB PO SCH (06:00)
[2017-05-17] MEDS: DILTIAZEM HCL 90 MG TAB PO SCH ×4 (06:00→17:38)
[2017-05-17] MEDS: ARTIFICIAL TEARS OPTH SOLN 15 ML BTL EACH EYE SCH ×3 (06:00→20:20)
[2017-05-17] MEDS: INSULIN ASPART SUPPLEMENTAL SCALE SQ SCH ×4 (06:00→17:39)
[2017-05-17] MEDS: CHLORHEXIDINE 0.12% (ORAL KIT) 15 ML CUP MT SCH ×2 (08:00→20:00)
[2017-05-17] MEDS: INSULIN DETEMIR 100 UNITS/ML VIAL SQ SCH ×2 (09:00→20:20)
[2017-05-17] MEDS: CALCITRIOL 0.25 MCG CAP PO SCH (09:00)
[2017-05-17] MEDS: LACTOBACILLUS ACIDOPHILUS TAB PO SCH ×3 (09:00→17:38)
[2017-05-17] MEDS: CHOLECALCIFEROL (VIT D3) 400 UNIT TAB PO SCH ×2 (09:00→20:19)
[2017-05-17] MEDS: NITROGLYCERIN 0.2 MG/HR PATCH T-DERMAL SCH (09:00)
[2017-05-17] MEDS: MULTIVITAMINS/MINERALS THERAPEUTIC TAB PO SCH ×2 (09:32→20:19)
[2017-05-17] MEDS: LANSOPRAZOLE SOLUTAB 30 MG TAB NG SCH (09:32)
[2017-05-17] MEDS: SODIUM CHLORIDE 0.9% FLUSH 10 ML FLUSH IV FLUSH SCH ×2 (09:32→20:20)
[2017-05-17] MEDS: METOPROLOL TARTRATE 50 MG TAB PO SCH ×3 (10:00→23:00)
--- NOTE | 2017-05-17 11:38 | HHI.CCPN ---
Subjective Remarks/Hospital Course The patient is an 82 year old female past with past medical history significant for hypertension, atrial fibrillation, diabetes mellitus, obesity, hypothyroidism, hyperlipidemia, diabetic neuropathy, who was seen in ED 3 days ago bronchospasm. She has COPD/Asthma and restrictive lung disease related to her obesity. Patient was treated for reactive airway disease, given breathing treatments and was discharged on as needed inhalers. Patient was brought in today by her as she was having shortness of breath and on the way to the ED when she slumped over in the car. In the emergency department she showed agonal breathing, she was intubated for airway protection emergently. Patient was given Solu-Medrol and breathing treatments and was placed on the mechanical ventilation. Chest x-ray showed bilateral infiltrates concerning for pneumonia. CT of the head was negative. I evaluated the patient in the ICU. She is on minimal sedation and mild attempts to wake up and intermittently tries to follows commands. She still on high oxygen requirement FiO2 is 60% with a PEEP of 5. I have increased the PEEP to 10. I have started the patient on scheduled IV Solu-Medrol, DuoNeb breathing treatments, cefepime and azithromycin for probable pneumonia. 04/20 Remains intubated, off sedation following commands. Currently FiO2 had been weaned to 40%. Urine output 950 ml since admission. Start SBT, Bumex 1 mg IV x1. 04/21: Tolerating CPAP better today, Appears calm following commands. UO adequate, though creat increasing. Cultures remain negative 04/22: Extubated yesterday required BiPAP overnight. Currently on nasal cannula slightly tachypneic but able to talk in full sentences maintaining oxygen saturation 04/23: Breathing more comfortably today on nasal cannula. Daughter At the bedside. Urine output adequate, creatinine has slightly improved 05/05: Rapid response team was called due to patient's altered mental status and hypoxemia. She was immediately transferred to ICU with a blood gas showing severe hypercarbic acidosis and was immediately intubated. She also became slightly hypotensive requiring a central line placement and initiation of vasopressor therapy 05/06: Awake and alert but not following commands. Nods head but inappropriately to questions. CAM ICU positive. Sedation is currently been held. Off norepinephrine. Currently nothing by mouth. 05/07: Tmax 100.4 Patient awake following commands. Sedation off a greater than 24-hour. Discussion of CODE STATUS with patient and daughter, patient states she requests to be full code explanation provided in detail. CODE STATUS changed to full code. Sputum cultures pending. Empiric antibiotics initiated Levaquin and cefepime. Patient continues on CPAP trials. The patient lasted 13 hours yesterday on CPAP. Plan for Vas-Cath placement by interventional radiology scheduled for 05/10. 05/08: Patient continues on CPAP trials, alert and responsive, denies pain. Plan for obtaining SBT parameters today a successful will extubate. Sputum culture revealed initial preliminary results of budding yeasts, micafungin added to medication regimen. Patient's scheduled by IR placement of Vas-Cath in a.m.. Patient continues on Reglan and nothing by mouth status per GI, large amounts of diarrhea/loose stools, plan for KUB this afternoon. 05/09: Tmax 99.0. The patient tolerated CPAP trials continuation overnight, approximately 24 hours. SBT performed last evening,WNL. Patient remains awake , alert and interactive. The patient is scheduled for permacath placement via IR this a.m. to be followed by dialysis. Plan for SBT trial postdialysis with a trial of extubation. Throughout the night the patient became tachycardic, with systolic blood pressure greater than 160s. Metoprolol resumed. Patient complained of throat pain early this a.m. relieved with Tylenol. GI following, obtained repeat KUB yesterday we'll await recommendations. Plan to discontinue IV fluids and initiate PPN. 05/10: Afebrile. Patient underwent IHD with 3 L fluid removal yesterday. Plan for permacath placement today. Patient noted to be continued hypertensive, Cardizem home medication resumed. Patient underwent SBT trials postdialysis yesterday with subsequent failure unable to extubate. Plan for repeat SBT parameters today, with anticipation of possible extubation. 05/11: Remains orally intubated on mechanical ventilation. EGD unremarkable 05/12: Remains orally intubated on mechanical ventilation. Had chest pain yesterday with EKG changes in the lateral leads. Troponin borderline 0.51. Hemoglobin 6.6 for which 2 units PRBCs were transfused yesterday. Patient was noted to have rectal bleeding this morning for which GI was notified. 05/13: Hemoglobin 5.7. Patient to receive 3 units packed red blood cells with dialysis today. Last evening the patient continued into A. fib heart rate in the 130s received 1 dose of 0.5 mg of morphine, for chest pain during the night , PRN Beta Blockers. Continues with Nitropaste. Patient denies abdominal pain. Tentative plan for colonoscopy tomorrow with Dr. Hernández. 05/14: Tmax 100.2. Patient received GoLYTELY in for scheduled colonoscopy today. Patient had 2 L stool output overnight, maroon-colored. Repeat hemoglobin performed stable 9.5. A. fib now rate controlled. Patient was noted to have hematuria during the night, heparin SQ prophylaxis was discontinued yesterday secondary to bleeding however the patient receives heparin during the dialysis. Fibrinogen and HIT panel labs pending. Reconsulted colorectal surgery, initial consult placed 05/01/[address] Tam. Patient denies abdominal pain. 05/15 Colonscopy yesterday with large internal hemorrhoids, large amount of stool in colon. Dignishield removed after colonscopy and no BM since. Patient denies abdominal pain. CPAP today and tolerates 15/ but RSBI in 120s when pressure support lowered. Discussed with patient and daughter at bedside and they are anticipating trach and agreeable to proceed. Afib with occasional RVR 05/16: hgb stable. plan for trach today. Subjective 05/17: s/p trach and peg yesterday. on SBT today. fails for tachypnea and low tidal volumes. otherwise no changes. no improvements. will need long-term acute care facility for vent weaning Objective Vital Signs Date Time Temp Pulse Resp B/P (MAP) Pulse Ox O2 Delivery O2 Flow Rate FiO2 05/17/17 10:00 25 05/17/17 10:00 124 05/17/17 09:02 96 05/17/17 08:00 99.0 18 97/52 (67) 05/17/17 07:00 Mechanical Ventilator Intake and Output 05/17/17 05/17/17 05/18/17 08:00 16:00 00:00 Intake Total 1214 ml Output Total 0 ml Balance 1214 ml Result Diagram: 05/17/17 0517 05/17/17 0517 Imaging Last Impressions Chest X-Ray 05/08/17 0600 Signed Impressions: Service Date/Time: Monday, May 08, 2017 03:23 - CONCLUSION: 1. Cardiomegaly and findings of vascular congestion without overt failure. There has been no significant change when compared to the prior exam. Brian Mcmanus MD Abdomen X-Ray 05/08/17 Signed Impressions: Service Date/Time: Monday, May 08, 2017 15:33 - CONCLUSION: Persistent mild dilatation of the ascending colon and transverse colon. Findings favor ileus. There are no findings to indicate small bowel obstruction. When correlating with prior CT it is felt unlikely to represent any colonic obstruction. Duncan Avery MD Enema w/Water Soluble 05/02/17 0000 Signed Impressions: Service Date/Time: Tuesday, May 02, 2017 08:02 - CONCLUSION: 1. Limited suboptimal exam. The cecum and right colon could not be opacified despite repeated attempts. 2. Residual stool and mild to moderate diverticulosis. Guevara Crowell MD Abdomen/Pelvis CT 05/02/17 0000 Signed Impressions: Service Date/Time: Tuesday, May 02, 2017 19:58 - CONCLUSION: 1. Nonspecific bowel gas pattern remains with contrast noted in the colon from the recent Gastrografin enema. The cecum remains distended. A rectal catheter is present. 2. No free air or fluid. 3. Small pleural effusions with mild consolidation in the lung bases. 4. Stable small adrenal masses likely representing adenomas. 5. Small nonobstructing left renal calculus. Guevara Crowell MD Catheter Placement X-Ray 05/01/17 Signed Impressions: Service Date/Time: Monday, May 01, 2017 11:45 - CONCLUSION: Uncomplicated line placement as above. Brian Mcmanus MD Renal Ultrasound 04/20/17 0000 Signed Impressions: Service Date/Time: April 15:07 - CONCLUSION: 1. There is no hydronephrosis. 2. Stable 8mm nonobstructing left renal stone. Duncan Avrey MD Head CT 04/19/1702 Signed Impressions: Service Date/Time: Wednesday, April 19, 2017 07:29 - CONCLUSION: 1. Cerebral white matter hypodensity characteristic of chronic microvascular ischemic disease. 2. No evidence of acute infarct, hemorrhage, mass or edema. Renato Coughlin MD Last Impressions Chest X-Ray 05/06/17 0000 Signed Impressions: Service Date/Time: Saturday, May 06, 2017 03:22 - CONCLUSION: Left IJ central venous catheter courses superiorly in the region of the SVC with the tip in the region of distal right internal jugular vein or right brachiocephalic vein. This could be retracted 5 cm. No evidence of pneumothorax. Hussain Green MD Abdomen X-Ray 05/04/17 0600 Signed Impressions: Service Date/Time: May 06:03 - CONCLUSION: Contrast through to the rectum. Basically stable dilatation of the proximal colon Duncan Delgado MD Enema w/Water Soluble 05/02/17 0000 Signed Impressions: Service Date/Time: Tuesday, May 02, 2017 08:02 - CONCLUSION: 1. Limited suboptimal exam. The cecum and right colon could not be opacified despite repeated attempts. 2. Residual stool and mild to moderate diverticulosis. Guevara Crowell MD Abdomen/Pelvis CT 05/02/17 0000 Signed Impressions: Service Date/Time: Tuesday, May 02, 2017 19:58 - CONCLUSION: 1. Nonspecific bowel gas pattern remains with contrast noted in the colon from the recent Gastrografin enema. The cecum remains distended. A rectal catheter is present. 2. No free air or fluid. 3. Small pleural effusions with mild consolidation in the lung bases. 4. Stable small adrenal masses likely representing adenomas. 5. Small nonobstructing left renal calculus. Guevara Crowell MD Catheter Placement X-Ray 05/01/17 0000 Signed Impressions: Service Date/Time: Monday, May 01, 2017 11:45 - CONCLUSION: Uncomplicated line placement as above. Brian Mcmanus MD Renal Ultrasound 04/20/17 0000 Signed Impressions: Service Date/Time: April 15:07 - CONCLUSION: 1. There is no hydronephrosis. 2. Stable 8mm nonobstructing left renal stone. Duncan Avery MD Head CT 04/19/17 0702 Signed Impressions: Service Date/Time: Wednesday, April 19, 2017 07:29 - CONCLUSION: 1. Cerebral white matter hypodensity characteristic of chronic microvascular ischemic disease. 2. No evidence of acute infarct, hemorrhage, mass or edema. Renato Coughlin MD Objective Remarks GENERAL: 82-year-old female, sitting up in bed. SKIN: Warm and dry. HEAD: Atraumatic. Normocephalic. EYES: Pupils equal and round. No scleral icterus. No injection or drainage. ENT: No nasal bleeding or discharge. Mucous membranes pink and moist. NECK: Trachea midline. No JVD. new trach in place without evidence of bleeding or discharge. CARDIOVASCULAR: Irregularly irregular, afib on the monitor RESPIRATORY: No accessory muscle use. Breath sounds equal bilaterally. Coarse bibasilar GASTROINTESTINAL: Abdomen obese, soft, nontender. PEG in place. MUSCULOSKELETAL: Extremities without clubbing, cyanosis. 1+ edema all extremities, anasarca. VASC: Right subclavian permacath in place with dressing clean/dry/intact. NEUROLOGICAL: Awake and alert, makes eye contact and nods appropriately. Communicates in writing. No obvious cranial nerve deficits. Moves all 4 extremities spontaneously. Procedures 05/10 - IR for permacath 05/11 EGD A/P Assessment and Plan NEURO/PSYCH: Acute metabolic encephalopathy-resolved - d/c propofol now s/p trach. - Goal RASS 0 - CT of the head negative for acute findings -Gabapentin 100 twice a day has been on hold. - Morphine when necessary pain (held) receiving only as needed dosing, while continuing CPAP - Tylenol 650 mg every 6 hours when necessary for pain RESP: Acute hypoxemic respiratory failure - persistent. subacute. Pneumonia COPD with exacerbation Restrictive lung disease Failure to wean - Extubated 04/21. Reintubated 05/05 Mechanical ventilation day #13. - failing SBTs daily for RSBI > 120, tachypnea, RR > 35, tidal volumes < 250cc. continue daily trails. - s/p trach 05/[address] Mathews/Brandon. Ventilator bundle -DuoNebs CV: Chronic A. fib- rate controlled Hypertension Chest pain- resolved - diltiazem 90 mg q6 , continue metoprolol 50 mg twice a day. 05/07- digoxin level 1.3 . Digoxin has been on hold in view of ESRD but may need to resume if RVR persists. better controlled today. -Holding Apixaban currently due to anemia, GI bleeding. - PPN @ 42cc/hr started on 05/10 - On atorvastatin 20 mg daily for dyslipidemia. - ASA on hold due to GI bleeding. - Dr. Cuevas evaluated 05/12 due to chest pain and recommended conservative management. Signed off. -2-D echo ild concentric LVH.EF 60-65%. -Lisinopril patient's home med has been discontinued in the setting of CKD. GI: Colonic ileus Melena GI Bleed Gastrografin enema 05/02. Proximal colonic dilatation. Patient is having bowel movements. No abdominal pain Famotidine for GI prophylaxis 05/11 EGD - normal esophagus, normal stomach, normal duodenal mucosa to the second portion 05/08 repeat KUB-mildly dilated ascending and transverse colon. Distention unchanged, but transverse colon distally more dilated 05/09 PPN 42cc/hr, and lipids Colonoscopy 05/[address] Hernández - large internal hemorrhoids felt to be source of bleeding.. Diverticulum in the sigmoid colon. Significant amount of stool within the colon. Recommended repeat colonoscopy in 6 months. Colorectal surgery initially consulted 05/01/17, Dr. Tam. will need to transition to tube feeds from PPN now that PEG access in place. will allow GI to guide therapy. RENAL: Acute on chronic kidney disease Secondary hyperparathyroidism Hematuria - IHD Monday/ and Monday per Nephrology -Dr. Grewal - R subclavian permacath 05/10/17 - Continue Calciferol 0.25 mcg daily for secondary hyperparathyroidism ID: Severe sepsis, resolved Pneumonia, resolved - Blood sputum and urine culture, all negative to date - s/p Cefepime and Levaqin. watch off antibiotics (Dr. Miesha Dias). No leukocytosis. Panculture if recurrent fever. -Was on micafungin 05/08-05/14 -pro-calcitonin elevation may be secondary to renal failure. HEME: Leukocytosis-resolved Normocytic anemia Acute blood loss anemia Thrombocytopenia Superficial thrombophlebitis, right cephalic vein. - 05/14 U/s BUE - Occlusive thrombus right cephalic vein. Neg LUE. -Holding apixaban -05/13 Transfuse 3 units packed red blood cells with dialysis, 05/12 patient received 1 unit PRBC -daily cbc. - HIT Ab negative and fibrinogen normal 05/14 - despite occlusive thrombus, recent GI bleeding makes her high risk for anticoagulation. risk/benefit is in favor of holding anticoagulation. ENDO: Hypothyroidism Type 2 diabetes - Continue levothyroxine at 125 g daily - Continue insulin detemir 10 units twice a day, medium dose sliding scale q 6 hours with glucose at target, currently on PPN. MSK: OA/OP Critical illness polyneuropathy Continue cholecalciferol 400 units twice a day PT evaluate and treat PT requested functional maintenance daily PROPH: - Bilateral lower extremity SCDs, heparin SQ placed on hold 05/13 due to acute blood loss anemia. LINES: -PIV LUE. Right subclavian permacath 05/10/1705/07: Discussed with Vitaliy Sales and daughter. Full CODE STATUS. All family members acknowledge understanding and present in room during discussion. CODE STATUS will be changed. Palliative care consulted as well for goals of care. 05/08: Palliative of care meeting, patient instituted daughter as primary POA. 05/13: Extensive discussion with POA's son and daughter, and regarding need for blood transfusion, plan for colonoscopy tomorrow. Post colonoscopy, will attempt CPAP and SBT parameters,if unsuccessful, tentative plan for tracheostomy scheduled for Wednesday 05/16 Overall Impression: at this point, very slow forward progress. GI to assist in guiding advancement of diet through PEG tube. will attempt daily SBTs and weaning, but strength is an issue and will take a large amount of pulmonary rehab to regain enough function. needs placement in LTAC at this point. Quan Mathews MD May 17, 2017 11:38
--- NOTE | 2017-05-17 14:41 | HHI.NPPN ---
Subjective History of Present Illness Patient is a 82-year-old with sepsis, COPD, intubation, diabetes, acute renal failure and chronic kidney disease. Additional Remarks Patient remain on the vent, Objective Data Data Vital Signs Date Time Temp Pulse Resp B/P (MAP) Pulse Ox O2 Delivery O2 Flow Rate FiO2 05/17/17 12:16 99 30 05/17/17 12:00 98.8 77 28 141/65 (90) 100 05/17/17 12:00 77 05/17/17 12:00 25 05/17/17 10:00 25 05/17/17 10:00 124 05/17/17 09:02 30 05/17/17 09:02 96 30 05/17/17 09:00 25 05/17/17 08:00 99.0 88 18 97/52 (67) 99 05/17/17 08:00 35 05/17/17 08:00 88 05/17/17 07:00 98 Mechanical Ventilator 35 05/17/17 06:00 84 05/17/17 04:32 22 05/17/17 04:00 35 05/17/17 04:00 88 05/17/17 04:00 98.7 84 26 100/47 (64) 100 05/17/17 03:51 100 30 05/17/17 02:00 84 05/17/17 00:28 100 35 05/17/17 00:00 89 05/17/17 00:00 35 05/17/17 00:00 99.0 89 22 107/52 (70) 100 05/16/17 22:00 80 05/16/17 21:10 100 35 05/16/17 20:34 14 05/16/17 20:00 96 05/16/17 20:00 35 05/16/17 20:00 99.0 96 19 106/57 (73) 100 05/16/17 19:00 98 Mechanical Ventilator 35 05/16/17 18:00 96 05/16/17 16:34 100 35 05/16/17 16:00 35 05/16/17 16:00 102 05/16/17 16:00 98.2 105 18 106/50 (68) 100 05/16/17 15:00 100 100 -: 05/17/17 0517 05/17/17 0517 Physical Exam General Appearance: No Acute Distress, Comfortable, Obese Neck Neck Exam: Neck Supple Pulmonary Resp Exam: Decreased Bases Cardiology CV Exam: Arrhythmia Gastrointestinal/Abdomen GI Exam: Bowel Sounds Hypoactive Extremeties Extremities Exam: Trace Edema Neurologic Neuro Exam: Alert, Awake Psychiatric Psych Exam: Appropriate Responses Assessment/Plan Problem List: (1) Acute on chronic renal insufficiency ICD Codes: N28.9 - Disorder of kidney and ureter, unspecified; N18.9 - Chronic kidney disease, unspecified Status: Acute Plan: Patient is in acute renal failure and had chronic kidney disease ESRD with no recovery Eliquis on hold Hemodialysis TTS K 3.4 replace G tube/Trach done no obvious source of bleed GI Bleed GI following HD T,T,S schedule (2) Hypertension ICD Codes: I10 - Hypertension Status: Acute Plan: Blood pressure was low (3) Diabetes ICD Codes: E11.9 - Type 2 diabetes mellitus without complications Status: Acute Plan: Continue to monitor (4) COPD with acute exacerbation ICD Codes: J44.1 - Chronic obstructive pulmonary disease with (acute) exacerbation Plan: extubated Problem Qualifiers (1) Diabetes: Tonja Grewal MD May 17, 2017 14:41
[2017-05-17] MEDS ORDERED: POTASSIUM CHLOR 10 MEQ PREMIX 100 ML IV ONE (14:45)
--- NOTE | 2017-05-17 15:59 | HHI.HCPN ---
Reason for visit a. To assist with evaluation and management of symptoms including: Debility , pain, dyspnea b. To assist medical decision maker(s) with: better understanding of current medical conditions; weighing benefits/burdens of medical treatment options; making medical treatment decisions. . Subjective/Interval History Pt seen today to follow up on comfort, goals. Patient seen in room with daughter at bedside status post tracheostomy and PEG tube placement yesterday. Patient is lethargic, arouse to verbal stimuli. Follows commands, moving all extremities Patient failed SBT today secondary to tachypnea and low tidal volumes. Patient will need to be transferred to LTAC vent for weaning. Follow-up chest x-ray on 05/15/2017 showed progression of bibasilar parenchymal changes. Colonoscopy on 05/14/2017 revealed diverticulum, large internal hemorrhoids which was felt to be the source of bleeding, and large amount of stool. Recommendations for repeat colonoscopy in 6 months. No signs of active bleeding today. WBC: 5.2, hemoglobin 8.1, hematocrit 24.8, platelets 87 Sodium: 133, potassium 3.4, chloride 98, carbon dioxide 25.5, glucose 100, calcium 7.9, phosphorus 1.6 BUN: 33, creatinine 4.28, GFR 12 Provided update to family and patient at bedside. We reviewed recent tracheostomy and PEG tube placement and discussed the process of being weaned off the ventilator. Patient is able to respond to some questions by nodding/ shaking head and/or mouthing words; she requests her family speak for her as well. Plan to continue trying to improve/restore patient and get her to rehabilitation. Goals remain aggressive. . Advance Directives Living Will: Never completed Health Care Surrogate: Copy in medical record Durable Power of Exercise Manager: Never completed Advance Directive Specifics Date completed: 05/08/2017 . Health Care Surrogate(s): Health care surrogate form completed 05/08/2017 designating the patient's daughter (Shilpa) as the healthcare surrogate decision maker. The patient's son (Jason) is the alternate health care surrogate decision maker. Documented care wishes: Healthcare surrogate form was completed 05/08/2017. No other documented care wishes have been completed. Plan to discuss written advanced directives/living will after the patient has been extubated in the upcoming days. . Objective Vital Signs Date Time Temp Pulse Resp B/P (MAP) Pulse Ox O2 Delivery O2 Flow Rate FiO2 05/17/17 12:16 99 30 05/17/17 12:00 98.8 77 28 141/65 (90) 100 05/17/17 12:00 77 05/17/17 12:00 25 05/17/17 10:00 25 05/17/17 10:00 124 05/17/17 09:02 30 05/17/17 09:02 96 30 05/17/17 09:00 25 05/17/17 08:00 99.0 88 18 97/52 (67) 99 05/17/17 08:00 35 05/17/17 08:00 88 05/17/17 07:00 98 Mechanical Ventilator 35 05/17/17 06:00 84 05/17/17 04:32 22 05/17/17 04:00 35 05/17/17 04:00 88 05/17/17 04:00 98.7 84 26 100/47 (64) 100 05/17/17 03:51 100 30 05/17/17 02:00 84 05/17/17 00:28 100 35 05/17/17 00:00 89 05/17/17 00:00 35 05/17/17 00:00 99.0 89 22 107/52 (70) 100 05/16/17 22:00 80 05/16/17 21:10 100 35 05/16/17 20:34 14 05/16/17 20:00 96 05/16/17 20:00 35 05/16/17 20:00 99.0 96 19 106/57 (73) 100 05/16/17 19:00 98 Mechanical Ventilator 35 05/16/17 18:00 96 05/16/17 16:34 100 35 05/16/17 16:00 35 05/16/17 16:00 102 05/16/17 16:00 98.2 105 18 106/50 (68) 100 Intake & Output 05/17/17 05/17/17 07:00 19:00 Intake Total 1214 ml Output Total 0 ml Balance 1214 ml TPN/PPN 787 ml Lipid 187 ml Other 240 ml Output Urine Total 0 ml # Bowel Movements 0 Physical Exam CONSTITUTIONAL/GENERAL: This is an elderly female, orotracheally intubated, alert, no distress TUBES/LINES/DRAINS: PEG, trach, Nelson catheter, digni-shield, soft restraints, permacath PIV 2 SKIN: Skin temperature appropriate. Not diaphoretic. NECK: S/p tracheostomy CARDIOVASCULAR: Irregular rate and rhythm. Atrial fibrillation with rate 77. No murmur. No JVD. Peripheral pulses symmetric. + 1-2 edema upper extremities. RESPIRATORY/CHEST: Unlabored respirations via ET tube to mechanical vent. Lungs are clear throughout, decreased air movement to bases. GASTROINTESTINAL: Obese, Abdomen soft, non-tender, nondistended. Hypoactive bowel sounds present. Peg tube in place GENITOURINARY: Without palpable bladder distension. Nelson catheter in place. Small amount dark concentrated urine. NEUROLOGICAL: Awake, nods to yes and no questions, gestures. Appears partially mostly oriented. Reports able to write as needed though she declines to at this time. She does follow simple commands. PSYCHIATRIC: No obvious anxiety/depression. no apparent hallucinations or other psychotic thought process. . Diagnostic Tests Laboratory Laboratory Tests Test 05/14/17 17:50 05/14/17 18:00 05/15/17 04:09 05/15/17 21:07 Potassium Level 2.4 MEQ/L (3.5-5.1) 3.7 MEQ/L (3.5-5.1) Hemoglobin 9.0 GM/DL (11.6-15.3) 8.8 GM/DL (11.6-15.3) 9.9 GM/DL (11.6-15.3) Hematocrit 25.6 % (35.0-46.0) 25.2 % (35.0-46.0) 28.2 % (35.0-46.0) White Blood Count 5.9 TH/MM3 (4.0-11.0) Red Blood Count 2.83 MIL/MM3 (4.00-5.30) Mean Corpuscular Volume 88.9 FL (80.0-100.0) Mean Corpuscular Hemoglobin 30.9 PG (27.0-34.0) Mean Corpuscular Hemoglobin Concent 34.8 % (32.0-36.0) Red Cell Distribution Width 15.8 % (11.6-17.2) Platelet Count 77 TH/MM3 (150-450) Mean Platelet Volume 9.7 FL (7.0-11.0) Neutrophils (%) (Auto) 86.3 % (16.0-70.0) Lymphocytes (%) (Auto) 3.3 % (9.0-44.0) Monocytes (%) (Auto) 8.5 % (0.0-8.0) Eosinophils (%) (Auto) 1.4 % (0.0-4.0) Basophils (%) (Auto) 0.5 % (0.0-2.0) Neutrophils # (Auto) 5.1 TH/MM3 (1.8-7.7) Lymphocytes # (Auto) 0.2 TH/MM3 (1.0-4.8) Monocytes # (Auto) 0.5 TH/MM3 (0-0.9) Eosinophils # (Auto) 0.1 TH/MM3 (0-0.4) Basophils # (Auto) 0.0 TH/MM3 (0-0.2) CBC Comment AUTO DIFF Differential Total Cells Counted 100 Neutrophils % (Manual) 67 % (16-70) Band Neutrophils % 23 % (0-6) Lymphocytes % 4 % (9-44) Monocytes % 4 % (0-8) Basophils % 1 % (0-2) Neutrophils # (Manual) 5.4 TH/MM3 (1.8-7.7) Myelocytes 1 % (0-0) Differential Comment FINAL DIFF MANUAL Platelet Estimate LOW (NORMAL) Platelet Morphology Comment ENLARGED (NORMAL) Polychromasia 2.8 % (0.0-1.9) Blood Urea Nitrogen 32 MG/DL (7-18) Creatinine 4.43 MG/DL (0.50-1.00) Random Glucose 94 MG/DL (74-106) Calcium Level 7.7 MG/DL (8.5-10.1) Phosphorus Level 2.3 MG/DL (2.5-4.9) Magnesium Level 1.8 MG/DL (1.5-2.5) Sodium Level 138 MEQ/L (136-145) Chloride Level 101 MEQ/L (98-107) Carbon Dioxide Level 25.2 MEQ/L (21.0-32.0) Anion Gap 12 MEQ/L (5-15) Estimat Glomerular Filtration Rate 12 ML/MIN (>89) Test 05/16/17 05:06 05/16/17 17:03 05/17/17 05:17 Blood Urea Nitrogen 43 MG/DL (7-18) 33 MG/DL (7-18) Creatinine 5.32 MG/DL (0.50-1.00) 4.28 MG/DL (0.50-1.00) Random Glucose 107 MG/DL (74-106) 100 MG/DL (74-106) Calcium Level 8.1 MG/DL (8.5-10.1) 7.9 MG/DL (8.5-10.1) Sodium Level 132 MEQ/L (136-145) 133 MEQ/L (136-145) Potassium Level 3.5 MEQ/L (3.5-5.1) 3.4 MEQ/L (3.5-5.1) Chloride Level 99 MEQ/L (98-107) 98 MEQ/L (98-107) Carbon Dioxide Level 22.9 MEQ/L (21.0-32.0) 25.5 MEQ/L (21.0-32.0) Anion Gap 10 MEQ/L (5-15) 10 MEQ/L (5-15) Estimat Glomerular Filtration Rate 9 ML/MIN (>89) 12 ML/MIN (>89) White Blood Count 5.1 TH/MM3 (4.0-11.0) 5.2 TH/MM3 (4.0-11.0) Red Blood Count 2.82 MIL/MM3 (4.00-5.30) 2.75 MIL/MM3 (4.00-5.30) Hemoglobin 8.4 GM/DL (11.6-15.3) 8.1 GM/DL (11.6-15.3) Hematocrit 25.2 % (35.0-46.0) 24.8 % (35.0-46.0) Mean Corpuscular Volume 89.6 FL (80.0-100.0) 90.2 FL (80.0-100.0) Mean Corpuscular Hemoglobin 29.8 PG (27.0-34.0) 29.4 PG (27.0-34.0) Mean Corpuscular Hemoglobin Concent 33.3 % (32.0-36.0) 32.6 % (32.0-36.0) Red Cell Distribution Width 16.8 % (11.6-17.2) 16.4 % (11.6-17.2) Platelet Count 84 TH/MM3 (150-450) 87 TH/MM3 (150-450) Mean Platelet Volume 10.2 FL (7.0-11.0) 9.9 FL (7.0-11.0) Neutrophils (%) (Auto) 81.1 % (16.0-70.0) Lymphocytes (%) (Auto) 6.9 % (9.0-44.0) Monocytes (%) (Auto) 9.6 % (0.0-8.0) Eosinophils (%) (Auto) 2.0 % (0.0-4.0) Basophils (%) (Auto) 0.4 % (0.0-2.0) Neutrophils # (Auto) 4.1 TH/MM3 (1.8-7.7) Lymphocytes # (Auto) 0.3 TH/MM3 (1.0-4.8) Monocytes # (Auto) 0.5 TH/MM3 (0-0.9) Eosinophils # (Auto) 0.1 TH/MM3 (0-0.4) Basophils # (Auto) 0.0 TH/MM3 (0-0.2) CBC Comment AUTO DIFF Differential Total Cells Counted 100 Neutrophils % (Manual) 76 % (16-70) Band Neutrophils % 6 % (0-6) Lymphocytes % 6 % (9-44) Monocytes % 10 % (0-8) Eosinophils % 1 % (0-4) Neutrophils # (Manual) 4.2 TH/MM3 (1.8-7.7) Metamyelocytes 1 % (0-1) Nucleated Red Blood Cells 2 /100 WBC (0-0) Differential Comment FINAL DIFF MANUAL Toxic Vacuolation PRESENT (NONE SEEN) Platelet Estimate LOW (NORMAL) Platelet Morphology Comment ENLARGED (NORMAL) Phosphorus Level 1.6 MG/DL (2.5-4.9) Result Diagram: 05/17/1751605/17/17 05 Imaging Last 72 hours Impressions Chest X-Ray 05/15/17 0000 Signed Impressions: Service Date/Time: Monday, May 15, 2017 14:02 - CONCLUSION: Progression of bibasilar parenchymal changes. Boubacar Woodruff MD FACR Abdomen X-Ray 05/15/17 0000 Signed Impressions: Service Date/Time: Monday, May 15, 2017 14:08 - CONCLUSION: 1. Limited by the patient's body habitus. 2. No dilated loops of bowel observed. Claudio Reaves Jr., MD . Procedures 04/19/17: Intubation 04/19/17: OGT placement 04/21/17: Extubation 05/01/17: NGT placed. 05/05/17: Reintubation; Left IJ central line placement 05/10/2017: PermCath placement 05/16/2017: Tracheostomy and PEG tube placement . Assessment and Plan Disease Oriented Problem List: (1) Hypothyroidism (2) Hyperlipidemia (3) Diabetes (4) Pneumonia (5) Atrial fibrillation (6) Acute on chronic kidney failure (7) COPD with acute exacerbation (8) Acute metabolic encephalopathy (9) Peripheral neuropathy (10) History of small bowel obstruction (11) History of thyroid cancer (12) Rectal bleeding Symptom Scale: (1) Debility 0-10 Scale: Unable to quantify (bedbound status, restrained.) (2) Dyspnea 0-10 Scale: Unable to quantify (failing vent trials. Third intubation this admission.) (3) Pain 0-10 Scale: Unable to quantify (generalized discomfort, invasive lines, restraints, bedbound.) Pertinent Non-Medical Issues Psychosocial: Patient is originally from [place]. She had 3 children. Daughter (Shilpa) lives in [place], [place] and son (Jason) lives in [place], [place]. Patient had another daughter who from breast cancer. Patient was remarried after her ; she is currently to her second (Vitaliy). 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 She has 25 grandchildren/great- grandchildren. Spiritual: Taoist messi Legal:Health care surrogate form completed 05/08/2017 designating the patient's daughter (Shilpa) as the healthcare surrogate decision maker. The patient's son (Jason) is the alternate health care surrogate decision maker. Ethical issues impacting care: No known ethical issues impacting care at this time. . Important Contacts Vitaliy Sales, spouse: [phone] or [phone] (cell) Shilpa Gonzales daughter/[facility]: [phone] Jason Sales son/alternate [facility]: [phone] . Prognosis Patient is an 82-year-old female who has been admitted 3 times in 2017 for management of respiratory failure/pneumonia. She has required intubation/ mechanical ventilation x 2 since her admission on 04/19/2017. Given patient's complex medical history with recurrent hospitalizations, advanced age and recent decline in functional status, she is high risk for ongoing setbacks and complications. . Code Status: Full Code Plan * Legal decision maker: Her daughter, Shilpa, has been designated as the healthcare surrogate and her son, Jason, is the alternate healthcare surrogate * Goals: Patient able to write, nod and participate some in discussions. Patient and family indicate they have been speaking and they wish to continue with all recommended diagnostic testing/treatments to support the patient while she gets stronger with the goals that she will gp to rehab and eventually return home. * FULL CODE. * SYMPTOMS: * Dyspnea: Status post tracheostomy 05/16/2017. Patient failed SBT today secondary to tachypnea and low tidal volumes. Patient will need to be transferred to LTAC vent for weaning. Follow-up chest x-ray on 05/15/2017 showed progression of bibasilar parenchymal changes. * Pain: She denies pain at this time and is receiving no pain medication. Likely sources of pain would be bedbound status, invasive lines, intubation, restraints. * Debility: Previously independent with all ADLs, residing at home her . She used a cane or walker for ambulation. She is expected to require rehabilitation after prolonged hospitalization. She has been accepted at [facility] and rehabilitation, as well as [facility] for dialysis-- however this may change as she may need LTAC for vent weaning. She has had Hemoccult positive stool and has required transfusions for anemia which is likely contributing to her debility, weakness and fatigue. Palliative care will continue to follow the patient during hospital course as condition evolves, to assist patient/decision-maker with understanding of their medical conditions, weighing benefits/burdens of treatment options, for clarification of goals of treatment. Additionally will assist with any symptoms of palliative concern. . Attestation To help prompt me to consider important information that might be impacting today's encounter and assessment, information from prior notes written by myself or my colleagues may have been "brought forward" into today's note. My signature on this note, however, is an attestation that I personally performed the exam, history, and/or decision-making noted today, and, unless otherwise indicated, the interactions with patient, family, and staff as well as the review of records all occurred today. I also attest that the listed assessment and stated plan reflect my best clinical judgment today based on the combination of historical information, prior notes, and today's exam/ interactions. When time spent is documented, it refers only to time spent today by the signer, or if indicated, combined time spent today by collaborating physician/nurse practitioner. . Yulissa Barraza May 17, 2017 15:59
--- NOTE | 2017-05-17 16:33 | HHI.GIFU ---
Subjective Remarks Pt resting in bed in NAD. indicates no abd pain. (Deidre Flores) Objective Vitals I&O Vital Signs Date Time Temp Pulse Resp B/P (MAP) Pulse Ox O2 Delivery O2 Flow Rate FiO2 05/17/17 15:58 30 05/17/17 15:58 100 30 05/17/17 12:16 99 30 05/17/17 12:00 98.8 77 28 141/65 (90) 100 05/17/17 12:00 77 05/17/17 12:00 25 05/17/17 10:00 25 05/17/17 10:00 124 05/17/17 09:02 30 05/17/17 09:02 96 30 05/17/17 09:00 25 05/17/17 08:00 99.0 88 18 97/52 (67) 99 05/17/17 08:00 35 05/17/17 08:00 88 05/17/17 07:00 98 Mechanical Ventilator 35 05/17/17 06:00 84 05/17/17 04:32 22 05/17/17 04:00 35 05/17/17 04:00 88 05/17/17 04:00 98.7 84 26 100/47 (64) 100 05/17/17 03:51 100 30 05/17/17 02:00 84 05/17/17 00:28 100 35 05/17/17 00:00 89 05/17/17 00:00 35 05/17/17 00:00 99.0 89 22 107/52 (70) 100 05/16/17 22:00 80 05/16/17 21:10 100 35 05/16/17 20:34 14 05/16/17 20:00 96 05/16/17 20:00 35 05/16/17 20:00 99.0 96 19 106/57 (73) 100 05/16/17 19:00 98 Mechanical Ventilator 35 05/16/17 18:00 96 05/16/17 16:34 100 35 I/O 05/16/17 05/16/17 05/16/17 05/17/17 05/17/17 05/17/17 07:00 15:00 23:00 07:00 15:00 23:00 Intake Total 433 ml 400 ml 1214 ml Output Total 0 ml 3000 ml 0 ml 0 ml Balance 433 ml -3000 ml 400 ml 1214 ml Tube Feeding 233 ml TPN/PPN 787 ml Lipid 187 ml Other 200 ml 400 ml 240 ml Output Urine Total 0 ml 0 ml 0 ml Hemodialysis 3000 ml # Bowel Movements 0 0 0 Laboratory Laboratory Tests Test 05/16/17 17:03 05/17/17 05:17 White Blood Count 5.1 5.2 Red Blood Count 2.82 2.75 Hemoglobin 8.4 8.1 Hematocrit 25.2 24.8 Mean Corpuscular Volume 89.6 90.2 Mean Corpuscular Hemoglobin 29.8 29.4 Mean Corpuscular Hemoglobin Concent 33.3 32.6 Red Cell Distribution Width 16.8 16.4 Platelet Count 84 87 Mean Platelet Volume 10.2 9.9 Neutrophils (%) (Auto) 81.1 Lymphocytes (%) (Auto) 6.9 Monocytes (%) (Auto) 9.6 Eosinophils (%) (Auto) 2.0 Basophils (%) (Auto) 0.4 Neutrophils # (Auto) 4.1 Lymphocytes # (Auto) 0.3 Monocytes # (Auto) 0.5 Eosinophils # (Auto) 0.1 Basophils # (Auto) 0.0 CBC Comment AUTO DIFF Differential Total Cells Counted 100 Neutrophils % (Manual) 76 Band Neutrophils % 6 Lymphocytes % 6 Monocytes % 10 Eosinophils % 1 Neutrophils # (Manual) 4.2 Metamyelocytes 1 Nucleated Red Blood Cells 2 Differential Comment FINAL DIFF MANUAL Toxic Vacuolation PRESENT Platelet Estimate LOW Platelet Morphology Comment ENLARGED Blood Urea Nitrogen 33 Creatinine 4.28 Random Glucose 100 Calcium Level 7.9 Sodium Level 133 Potassium Level 3.4 Chloride Level 98 Carbon Dioxide Level 25.5 Anion Gap 10 Estimat Glomerular Filtration Rate 12 Phosphorus Level 1.6 Date/Time Source Procedure Growth Status 04/19/17 16:54 Blood Peripheral Aerobic Blood Culture - Final NO GROWTH IN 5 DAYS Complete 04/19/17 16:54 Blood Peripheral Anaerobic Blood Culture - Final NO GROWTH IN 5 DAYS Complete 05/06/17 09:30 Stool Stool Stool Occult Blood (LAYLA) - Final HEMOCCULT POSITIVE Complete 05/07/17 16:24 Sputum Endotracheal Gram Stain - Final Complete 05/07/17 16:24 Sputum Endotracheal Sputum Culture - Final MODERATE GROWTH NORMAL RESPIRATORY GORDON Complete 04/19/17 06:15 Urine Clean Catch Urine Culture - Final NO GROWTH Complete Physical Exam HEENT: Normocephalic; atraumatic; no jaundice. trach to vent CHEST: Diminished breath sounds. CARDIAC: Irregular ABDOMEN: Soft, obese, nontender; no hepatosplenomegaly; bowel sounds are present in all four quadrants PEG dressing d&I EXTREMITIES: Anasarca SKIN: Normal; no rash; no jaundice. 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 Lethargic. Generalized weakness. Follows commands (Deidre Flores) Assessment and Plan Plan ASSESSMENT: - Dysphagia, FEN. Plan is for tracheostomy tomorrow. Will plan for possible PEG tube placement tomorrow, although she also gets HD tomorrow and this may need to be done on Monday. D/W patient, , and daughter- procedure, risks, benefits and they would like to proceed. - Rectal bleeding. S/P Colonoscopy (05/14/17)---> 1. Diverticulum in the sigmoid colon 2. Large internal hemorrhoids likely the source of bleeding 3. Significant amount of stool ( greenish yellow) was present throughout the entire examined colon, no blood seen through the examined colon. Flexiseal removed. She has not had any further bleeding. 8.825.2. - Anemia. S/P EGD (05/11/17)----> The esophagus was otherwise normal. STOMACH: The stomach otherwise appeared normal. DUODENUM: The duodenal mucosa appeared normal in the bulb and second portion of the duodenum. S/P Colonoscopy (05/14/17)---> 1. Diverticulum in the sigmoid colon 2. Large internal hemorrhoids likely the source of bleeding 3. Significant amount of stool ( greenish yellow) was present throughout the entire examined colon, no blood seen through the examined colon. HH stable. 8.825.2. - Abdominal pain, colonic ileus. KUB (04/30/17)----> Gaseous dilatation of colon greatest in the cecal region measuring up to 13 cm. Differential diagnosis includes ileus. A distal colonic obstruction could have a similar appearance. Of note, she has a history of SBO and underwent exploratory laparotomy with lysis of adhesions for abdominal pain, probable small bowel obstruction (01/05/13) with Dr. Tam. S/P Gastrografin Enema (05/02/17)--> Limited suboptimal exam. The cecum and right colon could not be opacified despite repeated attempts. Residual stool and mild to moderate diverticulosis. CT Scan abdomen and pelvis without iv contrast (05/02/17)--> nonspecific bowel gas pattern remains with contrast noted in the colon from recent Gastrografin enema. The cecum remains distended. A rectal catheter. No free air or fluid. Small pleural effusions with mild consolidation in the lung bases. Stable small adrenal masses likely representing adenomas. Small nonobstructing left renal calculus. KUB (05/08/17)---> Persistent mild dilatation of the ascending colon and transverse colon. Findings favor ileus. There are no findings to indicate a small bowel obstruction. When correlating with prior CT it is felt unlikely to represent any colonic obstruction. S/P SSE. Rpt. KUB (05/15/17)---> Limited by the patient's body habitus, no dilated loops of bowel observed. Clinically, obese, but not distended and nontender. Still on PPN. Will start TF at 20cc/hr. - Acute on chronic kidney disease with electrolyte abnormalities. S/P Permacath , HD per renal - Respiratory failure, COPD Exacerbation, PNA. S/P Abx. Now intubated- on CPAP - Atrial fibrillation. Digoxin, cardizem, BB - HTN, DM, metabolic encephalopathy, hypothyroidism per attending 05/17/17 s/p PEG placement. will start TF today. ?placement LTC? PLAN: - nepro with goal rate 40ml/hr - wean PPn when TF tolerated at goal rate - Transfuse as needed - Monitor labs - Supportive care - Further recommendations to follow based on results of above - Patient seen and examined by Dr. Landers and myself and this note is written on his behalf (Deidre Flores) Physician Comments Patient seen and examined Agree with above Continue with current supportive care Monitor labs We will sign off (Gabino Landers MD) Deidre Flores May 17, 2017 16:33 Gabino Landers MD May 17, 2017 18:31
[2017-05-17] MEDS: SODIUM CHLORIDE 23.4% INJ 5.5 MEQ, SODIUM ACETATE INJ 29.5 MEQ, POTASSIUM CHLORIDE INJ ... IV SCH ×7 (20:00)
[2017-05-17] MEDS: FAT EMULSION 20% INJ 250 ML (@10 mls/hr) IV SCH (20:00)
[2017-05-17] MEDS: ATORVASTATIN 20 MG TAB PO SCH (20:19)
[2017-05-17] MEDS: REMOVE OLD PATCH T-DERMAL SCH (20:20)
[2017-05-18] VITALS (11 sets, daily range): BP systolic 91–134; BP diastolic 51–71; PULSE 76–92; RESP 18–25; TEMP 98.8–100.9; O2SAT 91–100
[2017-05-18] MEDS: DILTIAZEM HCL 90 MG TAB PO SCH ×5 (02:44→23:37)
[2017-05-18] MEDS: ACETAMINOPHEN/HYDROcodone 325 MG/5 MG TAB PO PRN (02:45)
[2017-05-18] MEDS: CHLORHEXIDINE GLUCONATE 2 % 1 PACK (2 CLOTHS) TOP SCH ×2 (04:00→23:15)
[2017-05-18] MEDS: ARTIFICIAL TEARS OPTH SOLN 15 ML BTL EACH EYE SCH ×3 (05:59→19:33)
[2017-05-18] MEDS: LEVOTHYROXINE SODIUM 125 MCG TAB PO SCH (05:59)
[2017-05-18] MEDS: INSULIN ASPART SUPPLEMENTAL SCALE SQ SCH ×4 (06:00→18:00)
[2017-05-18 06:19] LABS: BICARBONATE 25.4 MEQ/L (21.0-32.0); POTASSIUM 3.6 MEQ/L (3.5-5.1)
[2017-05-18] MEDS ORDERED: SODIUM PHOSPHATE INJ 30 MMOL in SODIUM CHLOR 0.9% 250 ML INJ 250 ML IV ONE (08:00)
[2017-05-18] MEDS: CHLORHEXIDINE 0.12% (ORAL KIT) 15 ML CUP MT SCH ×2 (08:00→19:36)
[2017-05-18] MEDS: NITROGLYCERIN 0.2 MG/HR PATCH T-DERMAL SCH (09:00)
[2017-05-18] MEDS: CALCITRIOL 0.25 MCG CAP PO SCH (09:00)
[2017-05-18] MEDS: SODIUM CHLORIDE 0.9% FLUSH 10 ML FLUSH IV FLUSH SCH ×2 (09:00→19:36)
[2017-05-18] MEDS: INSULIN DETEMIR 100 UNITS/ML VIAL SQ SCH ×2 (09:41→20:01)
[2017-05-18] MEDS: LANSOPRAZOLE SOLUTAB 30 MG TAB NG SCH (10:40)
[2017-05-18] MEDS: LACTOBACILLUS ACIDOPHILUS TAB PO SCH ×3 (10:41→18:00)
[2017-05-18] MEDS: MULTIVITAMINS/MINERALS THERAPEUTIC TAB PO SCH ×2 (10:41→19:36)
[2017-05-18] MEDS: CHOLECALCIFEROL (VIT D3) 400 UNIT TAB PO SCH ×2 (10:41→19:36)
[2017-05-18] MEDS: METOPROLOL TARTRATE 50 MG TAB PO SCH ×2 (10:41→19:32)
--- NOTE | 2017-05-18 10:43 | HHI.NPPN ---
Subjective History of Present Illness Patient is a 82-year-old with sepsis, COPD, intubation, diabetes, acute renal failure and chronic kidney disease. Additional Remarks Patient remain on the vent, Objective Data Data Vital Signs Date Time Temp Pulse Resp B/P (MAP) Pulse Ox O2 Delivery O2 Flow Rate FiO2 05/18/17 08:00 99.0 92 18 103/51 (68) 94 05/18/17 08:00 77 05/18/17 08:00 30 05/18/17 07:00 94 Mechanical Ventilator 30 05/18/17 03:42 95 30 05/18/17 00:00 30 05/18/17 00:00 98.9 76 25 100 05/18/17 00:00 76 05/17/17 23:50 100 30 05/17/17 22:00 79 05/17/17 20:02 100 30 05/17/17 20:00 30 05/17/17 20:00 80 05/17/17 20:00 99.0 80 28 147/73 (97) 98 05/17/17 19:00 100 Mechanical Ventilator 30 05/17/17 18:00 82 05/17/17 16:00 99.9 82 23 134/63 (86) 100 05/17/17 16:00 35 05/17/17 16:00 82 05/17/17 15:58 30 05/17/17 15:58 100 30 05/17/17 12:16 99 30 05/17/17 12:00 98.8 77 28 141/65 (90) 100 05/17/17 12:00 77 05/17/17 12:00 25 -: 05/17/17 0517 05/18/17 0531 Physical Exam General Appearance: No Acute Distress, Comfortable, Obese Neck Neck Exam: Neck Supple Pulmonary Resp Exam: Decreased Bases Cardiology CV Exam: Arrhythmia Gastrointestinal/Abdomen GI Exam: Bowel Sounds Hypoactive Extremeties Extremities Exam: Trace Edema Neurologic Neuro Exam: Alert, Awake Psychiatric Psych Exam: Appropriate Responses Assessment/Plan Problem List: (1) Acute on chronic renal insufficiency ICD Codes: N28.9 - Disorder of kidney and ureter, unspecified; N18.9 - Chronic kidney disease, unspecified Status: Acute Plan: Patient is in acute renal failure and had chronic kidney disease ESRD with no recovery Eliquis on hold Hemodialysis TTS, seen during dialysis UF 3-4 KG as tolerated possible Trach O2 and wean off Vent G tube/Trach no obvious source of bleed GI Bleed GI following HD T,T,S schedule (2) Hypertension ICD Codes: I10 - Hypertension Status: Acute Plan: Blood pressure was low (3) Diabetes ICD Codes: E11.9 - Type 2 diabetes mellitus without complications Status: Acute Plan: Continue to monitor (4) COPD with acute exacerbation ICD Codes: J44.1 - Chronic obstructive pulmonary disease with (acute) exacerbation Plan: extubated Problem Qualifiers (1) Diabetes: Tonja Grewal MD May 18, 2017 10:43
[2017-05-18] MEDS: EPOETIN ALFA 10,000 UNITS/ML VIAL IV PUSH PRN (11:56)
[2017-05-18] MEDS: GENTAMICIN SULFATE (DIALYSIS USE ONLY) 20 MG/2 ML VIAL OTHER PRN (11:56)
[2017-05-18] MEDS: HEPARIN SODIUM - IV 10,000 UNITS/10 ML VIAL PRN (11:57)
[2017-05-18 12:22] LABS: HEMATOCRIT 27.1 % (35.0-46.0); MEAN CORPUSCULAR HEMOGLOBIN 29.4 PG (27.0-34.0); MEAN CORPUSCULAR HGB CONC 33.1 % (32.0-36.0); PLATELET COUNT 120 TH/MM3 (150-450); RED BLOOD COUNT 3.05 MIL/MM3 (4.00-5.30); RED CELL DISTRIBUTION WIDTH 16.2 % (11.6-17.2); WHITE BLOOD COUNT 9.4 TH/MM3 (4.0-11.0)
[2017-05-18 12:25] LABS: REVIEW FLAG FINAL
--- NOTE | 2017-05-18 12:51 | HHI.CCPN ---
Subjective Remarks/Hospital Course The patient is an 82 year old female past with past medical history significant for hypertension, atrial fibrillation, diabetes mellitus, obesity, hypothyroidism, hyperlipidemia, diabetic neuropathy, who was seen in ED 3 days ago bronchospasm. She has COPD/Asthma and restrictive lung disease related to her obesity. Patient was treated for reactive airway disease, given breathing treatments and was discharged on as needed inhalers. Patient was brought in today by her as she was having shortness of breath and on the way to the ED when she slumped over in the car. In the emergency department she showed agonal breathing, she was intubated for airway protection emergently. Patient was given Solu-Medrol and breathing treatments and was placed on the mechanical ventilation. Chest x-ray showed bilateral infiltrates concerning for pneumonia. CT of the head was negative. I evaluated the patient in the ICU. She is on minimal sedation and mild attempts to wake up and intermittently tries to follows commands. She still on high oxygen requirement FiO2 is 60% with a PEEP of 5. I have increased the PEEP to 10. I have started the patient on scheduled IV Solu-Medrol, DuoNeb breathing treatments, cefepime and azithromycin for probable pneumonia. 04/20 Remains intubated, off sedation following commands. Currently FiO2 had been weaned to 40%. Urine output 950 ml since admission. Start SBT, Bumex 1 mg IV x1. 04/21: Tolerating CPAP better today, Appears calm following commands. UO adequate, though creat increasing. Cultures remain negative 04/22: Extubated yesterday required BiPAP overnight. Currently on nasal cannula slightly tachypneic but able to talk in full sentences maintaining oxygen saturation 04/23: Breathing more comfortably today on nasal cannula. Daughter At the bedside. Urine output adequate, creatinine has slightly improved 05/05: Rapid response team was called due to patient's altered mental status and hypoxemia. She was immediately transferred to ICU with a blood gas showing severe hypercarbic acidosis and was immediately intubated. She also became slightly hypotensive requiring a central line placement and initiation of vasopressor therapy 05/06: Awake and alert but not following commands. Nods head but inappropriately to questions. CAM ICU positive. Sedation is currently been held. Off norepinephrine. Currently nothing by mouth. 05/07: Tmax 100.4 Patient awake following commands. Sedation off a greater than 24-hour. Discussion of CODE STATUS with patient and daughter, patient states she requests to be full code explanation provided in detail. CODE STATUS changed to full code. Sputum cultures pending. Empiric antibiotics initiated Levaquin and cefepime. Patient continues on CPAP trials. The patient lasted 13 hours yesterday on CPAP. Plan for Vas-Cath placement by interventional radiology scheduled for 05/10. 05/08: Patient continues on CPAP trials, alert and responsive, denies pain. Plan for obtaining SBT parameters today a successful will extubate. Sputum culture revealed initial preliminary results of budding yeasts, micafungin added to medication regimen. Patient's scheduled by IR placement of Vas-Cath in a.m.. Patient continues on Reglan and nothing by mouth status per GI, large amounts of diarrhea/loose stools, plan for KUB this afternoon. 05/09: Tmax 99.0. The patient tolerated CPAP trials continuation overnight, approximately 24 hours. SBT performed last evening,WNL. Patient remains awake , alert and interactive. The patient is scheduled for permacath placement via IR this a.m. to be followed by dialysis. Plan for SBT trial postdialysis with a trial of extubation. Throughout the night the patient became tachycardic, with systolic blood pressure greater than 160s. Metoprolol resumed. Patient complained of throat pain early this a.m. relieved with Tylenol. GI following, obtained repeat KUB yesterday we'll await recommendations. Plan to discontinue IV fluids and initiate PPN. 05/10: Afebrile. Patient underwent IHD with 3 L fluid removal yesterday. Plan for permacath placement today. Patient noted to be continued hypertensive, Cardizem home medication resumed. Patient underwent SBT trials postdialysis yesterday with subsequent failure unable to extubate. Plan for repeat SBT parameters today, with anticipation of possible extubation. 05/11: Remains orally intubated on mechanical ventilation. EGD unremarkable 05/12: Remains orally intubated on mechanical ventilation. Had chest pain yesterday with EKG changes in the lateral leads. Troponin borderline 0.51. Hemoglobin 6.6 for which 2 units PRBCs were transfused yesterday. Patient was noted to have rectal bleeding this morning for which GI was notified. 05/13: Hemoglobin 5.7. Patient to receive 3 units packed red blood cells with dialysis today. Last evening the patient continued into A. fib heart rate in the 130s received 1 dose of 0.5 mg of morphine, for chest pain during the night , PRN Beta Blockers. Continues with Nitropaste. Patient denies abdominal pain. Tentative plan for colonoscopy tomorrow with Dr. Hernández. 05/14: Tmax 100.2. Patient received GoLYTELY in for scheduled colonoscopy today. Patient had 2 L stool output overnight, maroon-colored. Repeat hemoglobin performed stable 9.5. A. fib now rate controlled. Patient was noted to have hematuria during the night, heparin SQ prophylaxis was discontinued yesterday secondary to bleeding however the patient receives heparin during the dialysis. Fibrinogen and HIT panel labs pending. Reconsulted colorectal surgery, initial consult placed 05/01/[address] Tam. Patient denies abdominal pain. 05/15 Colonscopy yesterday with large internal hemorrhoids, large amount of stool in colon. Dignishield removed after colonscopy and no BM since. Patient denies abdominal pain. CPAP today and tolerates 15/5 but RSBI in 120s when pressure support lowered. Discussed with patient and daughter at bedside and they are anticipating trach and agreeable to proceed. Afib with occasional RVR 05/16: hgb stable. plan for trach today. 05/17: s/p trach and peg yesterday. on SBT today. fails for tachypnea and low tidal volumes. otherwise no changes. no improvements. will need long-term acute care facility for vent weaning Subjective 05/18: continues to fail daily SBT trials for tachypnea and elevated RSBI. very weak. hypophosphatemia being actively replaced. awaiting placement. Objective Vital Signs Date Time Temp Pulse Resp B/P (MAP) Pulse Ox O2 Delivery O2 Flow Rate FiO2 05/18/17 12:00 30 05/18/17 12:00 98.8 84 21 96/55 (69) 100 05/18/17 07:00 Mechanical Ventilator Intake and Output 05/18/17 05/18/17 05/19/17 08:00 16:00 00:00 Output Total 4000 ml Balance -4000 ml Result Diagram: 05/18/17 1100 05/18/17 0531 Imaging Last Impressions Chest X-Ray 05/08/17 0600 Signed Impressions: Service Date/Time: Atilio, May 08, 2017 03:23 - CONCLUSION: 1. Cardiomegaly and findings of vascular congestion without overt failure. There has been no significant change when compared to the prior exam. Brian Mcmanus MD Abdomen X-Ray 05/08/17 0000 Signed Impressions: Service Date/Time: Monday, May 08, 2017 15:33 - CONCLUSION: Persistent mild dilatation of the ascending colon and transverse colon. Findings favor ileus. There are no findings to indicate small bowel obstruction. When correlating with prior CT it is felt unlikely to represent any colonic obstruction. Duncan Avery MD Enema w/Water Soluble 05/02/17 0000 Signed Impressions: Service Date/Time: Tuesday, May 02, 2017 08:02 - CONCLUSION: 1. Limited suboptimal exam. The cecum and right colon could not be opacified despite repeated attempts. 2. Residual stool and mild to moderate diverticulosis. Guevara Crowell MD Abdomen/Pelvis CT 05/02/17 0000 Signed Impressions: Service Date/Time: Tuesday, May 02, 2017 19:58 - CONCLUSION: 1. Nonspecific bowel gas pattern remains with contrast noted in the colon from the recent Gastrografin enema. The cecum remains distended. A rectal catheter is present. 2. No free air or fluid. 3. Small pleural effusions with mild consolidation in the lung bases. 4. Stable small adrenal masses likely representing adenomas. 5. Small nonobstructing left renal calculus. Guevara Crowell MD Catheter Placement X-Ray 05/01/17 0000 Signed Impressions: Service Date/Time: Monday, May 01, 2017 11:45 - CONCLUSION: Uncomplicated line placement as above. Brian Mcmanus MD Renal Ultrasound 04/20/17 0000 Signed Impressions: Service Date/Time: April 15:07 - CONCLUSION: 1. There is no hydronephrosis. 2. Stable 8mm nonobstructing left renal stone. Duncan Avery MD Head CT 04/19/17 0702 Signed Impressions: Service Date/Time: Wednesday, April 19, 2017 07:29 - CONCLUSION: 1. Cerebral white matter hypodensity characteristic of chronic microvascular ischemic disease. 2. No evidence of acute infarct, hemorrhage, mass or edema. Renato Coughlin MD Last Impressions Chest X-Ray 05/06/17 0000 Signed Impressions: Service Date/Time: Saturday, May 06, 2017 03:22 - CONCLUSION: Left IJ central venous catheter courses superiorly in the region of the SVC with the tip in the region of distal right internal jugular vein or right brachiocephalic vein. This could be retracted 5 cm. No evidence of pneumothorax. Hussain Green MD Abdomen X-Ray 05/04/17 0600 Signed Impressions: Service Date/Time: May 06:03 - CONCLUSION: Contrast through to the rectum. Basically stable dilatation of the proximal colon Duncan Delgado MD Enema w/Water Soluble 05/02/17 0000 Signed Impressions: Service Date/Time: Tuesday, May 02, 2017 08:02 - CONCLUSION: 1. Limited suboptimal exam. The cecum and right colon could not be opacified despite repeated attempts. 2. Residual stool and mild to moderate diverticulosis. Guevara Crowell MD Abdomen/Pelvis CT 05/02/17 0000 Signed Impressions: Service Date/Time: Tuesday, May 02, 2017 19:58 - CONCLUSION: 1. Nonspecific bowel gas pattern remains with contrast noted in the colon from the recent Gastrografin enema. The cecum remains distended. A rectal catheter is present. 2. No free air or fluid. 3. Small pleural effusions with mild consolidation in the lung bases. 4. Stable small adrenal masses likely representing adenomas. 5. Small nonobstructing left renal calculus. Guevara Crowell MD Catheter Placement X-Ray 05/01/17 0000 Signed Impressions: Service Date/Time: Monday, May 01, 2017 11:45 - CONCLUSION: Uncomplicated line placement as above. Brian Mcmanus MD Renal Ultrasound 04/20/17 0000 Signed Impressions: Service Date/Time: April 15:07 - CONCLUSION: 1. There is no hydronephrosis. 2. Stable 8mm nonobstructing left renal stone. Duncan Avery MD Head CT 04/19/17 0702 Signed Impressions: Service Date/Time: Wednesday, April 19, 2017 07:29 - CONCLUSION: 1. Cerebral white matter hypodensity characteristic of chronic microvascular ischemic disease. 2. No evidence of acute infarct, hemorrhage, mass or edema. Renato Coughlin MD Objective Remarks GENERAL: 82-year-old female, sitting up in bed. SKIN: Warm and dry. HEAD: Atraumatic. Normocephalic. EYES: Pupils equal and round. No scleral icterus. No injection or drainage. ENT: No nasal bleeding or discharge. Mucous membranes pink and moist. NECK: Trachea midline. No JVD. new trach in place without evidence of bleeding or discharge. CARDIOVASCULAR: Irregularly irregular, afib on the monitor RESPIRATORY: No accessory muscle use. Breath sounds equal bilaterally. Coarse bibasilar GASTROINTESTINAL: Abdomen obese, soft, nontender. PEG in place. MUSCULOSKELETAL: Extremities without clubbing, cyanosis. 1+ edema all extremities, anasarca. VASC: Right subclavian permacath in place with dressing clean/dry/intact. NEUROLOGICAL: Awake and alert, makes eye contact and nods appropriately. Communicates in writing. No obvious cranial nerve deficits. Moves all 4 extremities spontaneously. Procedures 05/10 - IR for permacath 05/11 EGD A/P Assessment and Plan NEURO/PSYCH: Acute metabolic encephalopathy-resolved - d/c propofol now s/p trach. - Goal RASS 0 - CT of the head negative for acute findings -Gabapentin 100 twice a day has been on hold. - Morphine when necessary pain (held) receiving only as needed dosing, while continuing CPAP - Tylenol 650 mg every 6 hours when necessary for pain RESP: Acute hypoxemic respiratory failure - persistent. subacute. Pneumonia COPD with exacerbation Restrictive lung disease Failure to wean - Extubated 04/21. Reintubated 05/05 Mechanical ventilation day #14. - failing SBTs daily for RSBI > 100, tachypnea, RR > 35, tidal volumes < 250cc. continue daily trails. - s/p trach 05/[address] Mathews/Brandon. Ventilator bundle -DuoNebs CV: Chronic A. fib- rate controlled Hypertension Chest pain- resolved - diltiazem 90 mg q6 , continue metoprolol 50 mg twice a day. 05/07- digoxin level 1.3 . Digoxin has been on hold in view of ESRD but may need to resume if RVR persists. better controlled today. -Holding Apixaban currently due to anemia, GI bleeding. - PPN @ 42cc/hr started on 05/10 - On atorvastatin 20 mg daily for dyslipidemia. - ASA on hold due to GI bleeding. - Dr. Cuevas evaluated 05/12 due to chest pain and recommended conservative management. Signed off. -2-D echo ild concentric LVH.EF 60-65%. -Lisinopril patient's home med has been discontinued in the setting of CKD. GI: Colonic ileus Melena GI Bleed Gastrografin enema 05/02. Proximal colonic dilatation. Patient is having bowel movements. No abdominal pain Famotidine for GI prophylaxis 05/11 EGD - normal esophagus, normal stomach, normal duodenal mucosa to the second portion 05/08 repeat KUB-mildly dilated ascending and transverse colon. Distention unchanged, but transverse colon distally more dilated 05/09 PPN 42cc/hr, and lipids Colonoscopy 05/[address] Hernández - large internal hemorrhoids felt to be source of bleeding.. Diverticulum in the sigmoid colon. Significant amount of stool within the colon. Recommended repeat colonoscopy in 6 months. Colorectal surgery initially consulted 05/01/17, Dr. Tam. transitioning to tube feeds from PPN. RENAL: Acute on chronic kidney disease Secondary hyperparathyroidism Hematuria - IHD Monday/ and Monday per Nephrology -Dr. Greawl - R subclavian permacath 05/10/17 - Continue Calciferol 0.25 mcg daily for secondary hyperparathyroidism ID: Severe sepsis, resolved Pneumonia, resolved - Blood sputum and urine culture, all negative to date - s/p Cefepime and Levaqin. watch off antibiotics (Dr. Miesha Dias). No leukocytosis. Panculture if recurrent fever. -Was on micafungin 05/08-05/14 -pro-calcitonin elevation may be secondary to renal failure. HEME: Leukocytosis-resolved Normocytic anemia Acute blood loss anemia Thrombocytopenia Superficial thrombophlebitis, right cephalic vein. - 05/14 U/s BUE - Occlusive thrombus right cephalic vein. Neg LUE. -Holding apixaban -05/13 Transfuse 3 units packed red blood cells with dialysis, 05/12 patient received 1 unit PRBC -daily cbc. - HIT Ab negative and fibrinogen normal 05/14 - despite occlusive thrombus, recent GI bleeding makes her high risk for anticoagulation. risk/benefit is in favor of holding anticoagulation. ENDO: Hypothyroidism Type 2 diabetes - Continue levothyroxine at 125 g daily - Continue insulin detemir 10 units twice a day, medium dose sliding scale q 6 hours with glucose at target MSK: OA/OP Critical illness polyneuropathy Continue cholecalciferol 400 units twice a day PT evaluate and treat PT requested functional maintenance daily PROPH: - Bilateral lower extremity SCDs, heparin SQ placed on hold 05/13 due to acute blood loss anemia. LINES: -PIV LUE. Right subclavian permacath 05/10/1705/07: Discussed with Vitaliy Sales and daughter. Full CODE STATUS. All family members acknowledge understanding and present in room during discussion. CODE STATUS will be changed. Palliative care consulted as well for goals of care. 05/08: Palliative of care meeting, patient instituted daughter as primary POA. 05/13: Extensive discussion with POA's son and daughter, and regarding need for blood transfusion, plan for colonoscopy tomorrow. Post colonoscopy, will attempt CPAP and SBT parameters,if unsuccessful, tentative plan for tracheostomy scheduled for Wednesday 05/16 Overall Impression: at this point, very slow forward progress. will attempt daily SBTs and weaning, but strength is an issue and will take a large amount of pulmonary rehab to regain enough function. needs placement in LTAC at this point. Quan Mathews MD May 18, 2017 12:51
--- NOTE | 2017-05-18 17:28 | HHI.HCPN ---
Reason for visit a. To assist with evaluation and management of symptoms including: Debility , pain, dyspnea b. To assist medical decision maker(s) with: better understanding of current medical conditions; weighing benefits/burdens of medical treatment options; making medical treatment decisions. . Subjective/Interval History Pt seen today to follow up on comfort, goals. Patient seen in ICU status post tracheostomy and PEG tube placement on 2016; continues to fail SBT. Patient had HD earlier today with 4L removed. Patient is lethargic this afternoon; she arouses briefly to verbal stimuli. She is able to nod/shake her answer questions. Follow-up chest x-ray on 05/15/2017 showed progression of bibasilar parenchymal changes. Eve-shield removed after colonoscopy on 05/14/2017; revealed diverticulum, large internal hemorrhoids which was felt to be the source of bleeding, and large amount of stool. Patient had 2 medium liquid stools yesterday. No signs of active bleeding. WBC: 9.4, hemoglobin 9.0, hematocrit 27.1, platelets 120 Sodium: 1:30, potassium 3.6, chloride 95, carbon dioxide 25.4, glucose 85, calcium 8.0 BUN: 43, creatinine 5.30, GFR 9 Plan to continue trying to improve/restore patient and get her to rehabilitation. Goals remain aggressive.Patient is making very slow progress; strength is an issue and it will take significant pulmonary rehabilitation to regain function. Possible transfer [facility] for vent weaning early next week. . Advance Directives Living Will: Never completed Health Care Surrogate: Copy in medical record Durable Power of Emotional Support Teacher: Never completed Advance Directive Specifics Date completed: 05/08/2017 . Health Care Surrogate(s): Health care surrogate form completed 05/08/2017 designating the patient's daughter (Shilpa) as the healthcare surrogate decision maker. The patient's son (Jason) is the alternate health care surrogate decision maker. Documented care wishes: Healthcare surrogate form was completed 05/08/2017. No other documented care wishes have been completed. Plan to discuss written advanced directives/living will after the patient has been extubated in the upcoming days. . Objective Vital Signs Date Time Temp Pulse Resp B/P (MAP) Pulse Ox O2 Delivery O2 Flow Rate FiO2 05/18/17 16:00 30 05/18/17 16:00 100.7 85 22 134/71 (92) 91 05/18/17 12:47 98 30 05/18/17 12:00 30 05/18/17 12:00 98.8 84 21 96/55 (69) 100 05/18/17 09:13 99 30 05/18/17 08:00 99.0 92 18 103/51 (68) 94 05/18/17 08:00 77 05/18/17 08:00 30 05/18/17 07:00 94 Mechanical Ventilator 30 05/18/17 03:42 95 30 05/18/17 00:00 30 05/18/17 00:00 98.9 76 25 100 05/18/17 00:00 76 05/17/17 23:50 100 30 05/17/17 22:00 79 05/17/17 20:02 100 30 05/17/17 20:00 30 05/17/17 20:00 80 05/17/17 20:00 99.0 80 28 147/73 (97) 98 05/17/17 19:00 100 Mechanical Ventilator 30 05/17/17 18:00 82 Intake & Output 05/18/17 05/18/17 07:00 19:00 Output Total 4000 ml Balance -4000 ml Hemodialysis 4000 ml . Physical Exam CONSTITUTIONAL/GENERAL: This is an elderly female, orotracheally intubated, alert, no distress TUBES/LINES/DRAINS: PEG, trach, Nelson catheter, permacath, PIV 2 SKIN: Skin temperature appropriate. Not diaphoretic. NECK: S/p tracheostomy CARDIOVASCULAR: Irregular rate and rhythm. Atrial fibrillation on monitor. RESPIRATORY/CHEST: Remain on mechanical vent via trach, not tolerating SBT. Coarse air exchange GASTROINTESTINAL: Obese, Abdomen soft, non-tender, nondistended. Active bowel sounds present. Tolerating artificial nutrition via PEG at 40 mL's per hour GENITOURINARY: Without palpable bladder distension. Nelson catheter in place. NEUROLOGICAL: Lethargic. Arouses briefly to verbal stimuli. Able to nod/shake head to yes to questions. Not as interactive today, likely secondary to fatigue status post HD PSYCHIATRIC: No obvious anxiety/depression. no apparent hallucinations or other psychotic thought process. . . Diagnostic Tests Laboratory Laboratory Tests Test 05/15/17 21:07 05/16/17 05:06 05/16/17 17:03 05/17/17 05:17 Hemoglobin 9.9 GM/DL (11.6-15.3) 8.4 GM/DL (11.6-15.3) 8.1 GM/DL (11.6-15.3) Hematocrit 28.2 % (35.0-46.0) 25.2 % (35.0-46.0) 24.8 % (35.0-46.0) Blood Urea Nitrogen 43 MG/DL (7-18) 33 MG/DL (7-18) Creatinine 5.32 MG/DL (0.50-1.00) 4.28 MG/DL (0.50-1.00) Random Glucose 107 MG/DL (74-106) 100 MG/DL (74-106) Calcium Level 8.1 MG/DL (8.5-10.1) 7.9 MG/DL (8.5-10.1) Sodium Level 132 MEQ/L (136-145) 133 MEQ/L (136-145) Potassium Level 3.5 MEQ/L (3.5-5.1) 3.4 MEQ/L (3.5-5.1) Chloride Level 99 MEQ/L (98-107) 98 MEQ/L (98-107) Carbon Dioxide Level 22.9 MEQ/L (21.0-32.0) 25.5 MEQ/L (21.0-32.0) Anion Gap 10 MEQ/L (5-15) 10 MEQ/L (5-15) Estimat Glomerular Filtration Rate 9 ML/MIN (>89) 12 ML/MIN (>89) White Blood Count 5.1 TH/MM3 (4.0-11.0) 5.2 TH/MM3 (4.0-11.0) Red Blood Count 2.82 MIL/MM3 (4.00-5.30) 2.75 MIL/MM3 (4.00-5.30) Mean Corpuscular Volume 89.6 FL (80.0-100.0) 90.2 FL (80.0-100.0) Mean Corpuscular Hemoglobin 29.8 PG (27.0-34.0) 29.4 PG (27.0-34.0) Mean Corpuscular Hemoglobin Concent 33.3 % (32.0-36.0) 32.6 % (32.0-36.0) Red Cell Distribution Width 16.8 % (11.6-17.2) 16.4 % (11.6-17.2) Platelet Count 84 TH/MM3 (150-450) 87 TH/MM3 (150-450) Mean Platelet Volume 10.2 FL (7.0-11.0) 9.9 FL (7.0-11.0) Neutrophils (%) (Auto) 81.1 % (16.0-70.0) Lymphocytes (%) (Auto) 6.9 % (9.0-44.0) Monocytes (%) (Auto) 9.6 % (0.0-8.0) Eosinophils (%) (Auto) 2.0 % (0.0-4.0) Basophils (%) (Auto) 0.4 % (0.0-2.0) Neutrophils # (Auto) 4.1 TH/MM3 (1.8-7.7) Lymphocytes # (Auto) 0.3 TH/MM3 (1.0-4.8) Monocytes # (Auto) 0.5 TH/MM3 (0-0.9) Eosinophils # (Auto) 0.1 TH/MM3 (0-0.4) Basophils # (Auto) 0.0 TH/MM3 (0-0.2) CBC Comment AUTO DIFF Differential Total Cells Counted 100 Neutrophils % (Manual) 76 % (16-70) Band Neutrophils % 6 % (0-6) Lymphocytes % 6 % (9-44) Monocytes % 10 % (0-8) Eosinophils % 1 % (0-4) Neutrophils # (Manual) 4.2 TH/MM3 (1.8-7.7) Metamyelocytes 1 % (0-1) Nucleated Red Blood Cells 2 /100 WBC (0-0) Differential Comment FINAL DIFF MANUAL Toxic Vacuolation PRESENT (NONE SEEN) Platelet Estimate LOW (NORMAL) Platelet Morphology Comment ENLARGED (NORMAL) Phosphorus Level 1.6 MG/DL (2.5-4.9) Test 05/18/17 05:31 05/18/17 11:00 Blood Urea Nitrogen 43 MG/DL (7-18) Creatinine 5.30 MG/DL (0.50-1.00) Random Glucose 85 MG/DL (74-106) Calcium Level 8.0 MG/DL (8.5-10.1) Sodium Level 130 MEQ/L (136-145) Potassium Level 3.6 MEQ/L (3.5-5.1) Chloride Level 95 MEQ/L (98-107) Carbon Dioxide Level 25.4 MEQ/L (21.0-32.0) Anion Gap 10 MEQ/L (5-15) Estimat Glomerular Filtration Rate 9 ML/MIN (>89) White Blood Count 9.4 TH/MM3 (4.0-11.0) Red Blood Count 3.05 MIL/MM3 (4.00-5.30) Hemoglobin 9.0 GM/DL (11.6-15.3) Hematocrit 27.1 % (35.0-46.0) Mean Corpuscular Volume 89.0 FL (80.0-100.0) Mean Corpuscular Hemoglobin 29.4 PG (27.0-34.0) Mean Corpuscular Hemoglobin Concent 33.1 % (32.0-36.0) Red Cell Distribution Width 16.2 % (11.6-17.2) Platelet Count 120 TH/MM3 (150-450) Mean Platelet Volume 9.9 FL (7.0-11.0) Result Diagram: 05/18/17 1100 05/18/17 0531 Procedures 04/19/17: Intubation 04/19/17: OGT placement 04/21/17: Extubation 05/01/17: NGT placed. 05/05/17: Reintubation; Left IJ central line placement 05/10/2017: PermCath placement 05/16/2017: Tracheostomy and PEG tube placement . Assessment and Plan Disease Oriented Problem List: (1) Hypothyroidism (2) Hyperlipidemia (3) Diabetes (4) Pneumonia (5) Atrial fibrillation (6) Acute on chronic kidney failure (7) COPD with acute exacerbation (8) Acute metabolic encephalopathy (9) Peripheral neuropathy (10) History of small bowel obstruction (11) History of thyroid cancer (12) Rectal bleeding Symptom Scale: (1) Debility 0-10 Scale: Unable to quantify (bedbound status, restrained.) (2) Dyspnea 0-10 Scale: Unable to quantify (failing vent trials. Third intubation this admission.) (3) Pain 0-10 Scale: Unable to quantify (generalized discomfort, invasive lines, restraints, bedbound.) Pertinent Non-Medical Issues Psychosocial: Patient is originally from [place]. She had 3 children. Daughter (Shilpa) lives in [place], [place] and son (Jason) lives in [place], [place]. Patient had another daughter who from breast cancer. Patient was remarried after her ; she is currently to her second (Vitaliy). 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 She has 25 grandchildren/great- grandchildren. Spiritual: [employer] messi Legal:Health care surrogate form completed 05/08/2017 designating the patient's daughter (Shilpa) as the healthcare surrogate decision maker. The patient's son (Jason) is the alternate health care surrogate decision maker. Ethical issues impacting care: No known ethical issues impacting care at this time. . Important Contacts Vitaliy Sales, spouse: [phone] or [phone] (cell) Shilpa Gonzales daughter/HCS: [phone] Jason Sales son/alternate HCS: [phone] . Prognosis Patient is an 82-year-old female who has been admitted 3 times in 2017 for management of respiratory failure/pneumonia. She has required intubation/ mechanical ventilation x 2 since her admission on 04/19/2017. Given patient's complex medical history with recurrent hospitalizations, advanced age and recent decline in functional status, she is high risk for ongoing setbacks and complications. . Code Status: Full Code Plan * Legal decision maker: Her daughter, Shilpa, has been designated as the healthcare surrogate and her son, Jason, is the alternate healthcare surrogate * Goals: Patient able to write, nod and participate some in discussions. Patient and family indicate they have been speaking and they wish to continue with all recommended diagnostic testing/treatments to support the patient while she gets stronger with the goals that she will gp to rehab and eventually return home. * FULL CODE. * SYMPTOMS: * Dyspnea: Status post tracheostomy 05/16/2017. Patient failed SBT today secondary to tachypnea and low tidal volumes. Patient will need to be transferred to LTAC vent for weaning. Follow-up chest x-ray on 05/15/2017 showed progression of bibasilar parenchymal changes. * Pain: She denies pain at this time and is receiving no pain medication. Likely sources of pain would be bedbound status, invasive lines, intubation, restraints. * Debility: Previously independent with all ADLs, residing at home her . She used a cane or walker for ambulation. She is expected to require rehabilitation after prolonged hospitalization. She has been accepted at [facility] and rehabilitation, as well as [facility] for dialysis-- however this may change as she may need LTAC for vent weaning. She has had Hemoccult positive stool and has required transfusions for anemia which is likely contributing to her debility, weakness and fatigue. Palliative care will continue to follow the patient during hospital course as condition evolves, to assist patient/decision-maker with understanding of their medical conditions, weighing benefits/burdens of treatment options, for clarification of goals of treatment. Additionally will assist with any symptoms of palliative concern. . Attestation To help prompt me to consider important information that might be impacting today's encounter and assessment, information from prior notes written by myself or my colleagues may have been "brought forward" into today's note. My signature on this note, however, is an attestation that I personally performed the exam, history, and/or decision-making noted today, and, unless otherwise indicated, the interactions with patient, family, and staff as well as the review of records all occurred today. I also attest that the listed assessment and stated plan reflect my best clinical judgment today based on the combination of historical information, prior notes, and today's exam/ interactions. When time spent is documented, it refers only to time spent today by the signer, or if indicated, combined time spent today by collaborating physician/nurse practitioner. . Yulissa Barraza May 18, 2017 17:28
[2017-05-18] MEDS: FAT EMULSION 20% INJ 250 ML (@10 mls/hr) IV SCH (19:32)
[2017-05-18] MEDS: ATORVASTATIN 20 MG TAB PO SCH (19:36)
[2017-05-18] MEDS: REMOVE OLD PATCH T-DERMAL SCH (19:57)
[2017-05-19] VITALS (21 sets, daily range): BP systolic 104–150; BP diastolic 49–69; PULSE 72–103; RESP 18–19; TEMP 97.8–100.4; O2SAT 96–100
[2017-05-19] MEDS: INSULIN ASPART SUPPLEMENTAL SCALE SQ SCH ×4 (00:28→17:54)
[2017-05-19] MEDS: ACETAMINOPHEN 325 MG TAB PO PRN (01:22)
[2017-05-19] MEDS: ARTIFICIAL TEARS OPTH SOLN 15 ML BTL EACH EYE SCH ×3 (05:04→20:07)
[2017-05-19 05:23] LABS: HEMATOCRIT 22.2 % (35.0-46.0); MEAN CELL VOLUME 90.1 FL (80.0-100.0); MEAN CORPUSCULAR HEMOGLOBIN 29.6 PG (27.0-34.0); MEAN CORPUSCULAR HGB CONC 32.9 % (32.0-36.0); PLATELET COUNT 131 TH/MM3 (150-450); RED BLOOD COUNT 2.46 MIL/MM3 (4.00-5.30); RED CELL DISTRIBUTION WIDTH 16.8 % (11.6-17.2); REVIEW FLAG FINAL; WHITE BLOOD COUNT 11.9 TH/MM3 (4.0-11.0)
[2017-05-19] MEDS: DILTIAZEM HCL 90 MG TAB PO SCH ×3 (05:37→17:53)
[2017-05-19] MEDS: LEVOTHYROXINE SODIUM 125 MCG TAB PO SCH (05:37)
[2017-05-19 05:39] LABS: BICARBONATE 26.7 MEQ/L (21.0-32.0); POTASSIUM 3.6 MEQ/L (3.5-5.1)
[2017-05-19] MEDS: CHLORHEXIDINE 0.12% (ORAL KIT) 15 ML CUP MT SCH ×2 (08:53→20:06)
[2017-05-19] MEDS: LANSOPRAZOLE SOLUTAB 30 MG TAB NG SCH (09:21)
[2017-05-19] MEDS: MULTIVITAMINS/MINERALS THERAPEUTIC TAB PO SCH ×2 (09:21→20:05)
[2017-05-19] MEDS: METOPROLOL TARTRATE 50 MG TAB PO SCH ×2 (09:21→20:05)
[2017-05-19] MEDS: LACTOBACILLUS ACIDOPHILUS TAB PO SCH ×3 (09:21→17:53)
[2017-05-19] MEDS: SODIUM CHLORIDE 0.9% FLUSH 10 ML FLUSH IV FLUSH SCH ×2 (09:21→20:05)
[2017-05-19] MEDS: CALCITRIOL 0.25 MCG CAP PO SCH (09:22)
[2017-05-19] MEDS: CHOLECALCIFEROL (VIT D3) 400 UNIT TAB PO SCH ×2 (09:22→20:06)
[2017-05-19] MEDS: INSULIN DETEMIR 100 UNITS/ML VIAL SQ SCH ×2 (09:23→20:07)
[2017-05-19] MEDS: NITROGLYCERIN 0.2 MG/HR PATCH T-DERMAL SCH (09:27)
--- NOTE | 2017-05-19 12:15 | HHI.NPPN ---
Subjective History of Present Illness Patient is a 82-year-old with sepsis, COPD, intubation, diabetes, acute renal failure and chronic kidney disease. Additional Remarks Patient remain on the vent, Objective Data Data 05/19/17 05/20/17 19:00 07:00 Intake Total 50 ml Output Total 250 ml Balance -200 ml Other 50 ml Output Urine Total 250 ml Bladder Scan Volume Amount 331 ml # Bowel Movements 1 Vital Signs Date Time Temp Pulse Resp B/P (MAP) Pulse Ox O2 Delivery O2 Flow Rate FiO2 05/19/17 10:45 30 05/19/17 10:00 103 05/19/17 09:46 100 30 05/19/17 09:45 30 05/19/17 09:00 30 05/19/17 09:00 30 05/19/17 09:00 99 30 05/19/17 08:00 30 05/19/17 08:00 77 05/19/17 08:00 99.5 77 19 127/66 (86) 100 05/19/17 07:00 100 Mechanical Ventilator 30 05/19/17 06:00 77 05/19/17 04:21 99 30 05/19/17 04:00 85 05/19/17 04:00 30 05/19/17 04:00 97.8 85 18 104/57 (73) 97 05/19/17 02:46 18 05/19/17 02:00 72 05/19/17 01:14 98 30 05/19/17 00:00 100.4 97 18 105/49 (67) 96 05/19/17 00:00 30 05/19/17 00:00 97 05/18/17 22:00 83 05/18/17 20:00 100.9 84 19 91/53 (66) 93 05/18/17 20:00 84 05/18/17 20:00 30 05/18/17 19:51 100 30 05/18/17 16:00 30 05/18/17 16:00 100.7 85 22 134/71 (92) 91 05/18/17 15:58 95 30 05/18/17 15:58 30 05/18/17 12:47 98 30 -: 05/19/17 0447 05/19/17 0447 Physical Exam General Appearance: No Acute Distress, Comfortable, Obese Neck Neck Exam: Neck Supple Pulmonary Resp Exam: Decreased Bases Cardiology CV Exam: Arrhythmia Gastrointestinal/Abdomen GI Exam: Bowel Sounds Hypoactive Extremeties Extremities Exam: Trace Edema Neurologic Neuro Exam: Alert, Awake Psychiatric Psych Exam: Appropriate Responses Assessment/Plan Problem List: (1) Acute on chronic renal insufficiency ICD Codes: N28.9 - Disorder of kidney and ureter, unspecified; N18.9 - Chronic kidney disease, unspecified Status: Acute Plan: Patient is in acute renal failure and had chronic kidney disease ESRD with no recovery UF 4 L Eliquis on hold Hemodialysis TTS, Trach O2 and wean off Vent G tube/Trach no obvious source of bleed GI Bleed GI following HD T,T,S schedule (2) Hypertension ICD Codes: I10 - Hypertension Status: Acute Plan: Blood pressure was low (3) Diabetes ICD Codes: E11.9 - Type 2 diabetes mellitus without complications Status: Acute Plan: Continue to monitor (4) COPD with acute exacerbation ICD Codes: J44.1 - Chronic obstructive pulmonary disease with (acute) exacerbation Plan: extubated Problem Qualifiers (1) Diabetes: Tonja Grewal MD May 19, 2017 12:15
--- NOTE | 2017-05-19 12:19 | HHI.NPPN ---
Subjective History of Present Illness Patient is a 82-year-old with sepsis, COPD, intubation, diabetes, acute renal failure and chronic kidney disease. Additional Remarks Patient remain on the vent, Objective Data Data 05/19/17 05/20/17 19:00 07:00 Intake Total 50 ml Output Total 250 ml Balance -200 ml Other 50 ml Output Urine Total 250 ml Bladder Scan Volume Amount 331 ml # Bowel Movements 1 Vital Signs Date Time Temp Pulse Resp B/P (MAP) Pulse Ox O2 Delivery O2 Flow Rate FiO2 05/19/17 10:45 30 05/19/17 10:00 103 05/19/17 09:46 100 30 05/19/17 09:45 30 05/19/17 09:00 30 05/19/17 09:00 30 05/19/17 09:00 99 30 05/19/17 08:00 30 05/19/17 08:00 77 05/19/17 08:00 99.5 77 19 127/66 (86) 100 05/19/17 07:00 100 Mechanical Ventilator 30 05/19/17 06:00 77 05/19/17 04:21 99 30 05/19/17 04:00 85 05/19/17 04:00 30 05/19/17 04:00 97.8 85 18 104/57 (73) 97 05/19/17 02:46 18 05/19/17 02:00 72 05/19/17 01:14 98 30 05/19/17 00:00 100.4 97 18 105/49 (67) 96 05/19/17 00:00 30 05/19/17 00:00 97 05/18/17 22:00 83 05/18/17 20:00 100.9 84 19 91/53 (66) 93 05/18/17 20:00 84 05/18/17 20:00 30 05/18/17 19:51 100 30 05/18/17 16:00 30 05/18/17 16:00 100.7 85 22 134/71 (92) 91 05/18/17 15:58 95 30 05/18/17 15:58 30 05/18/17 12:47 98 30 -: 05/19/17 0447 05/19/17 0447 Physical Exam General Appearance: No Acute Distress, Comfortable, Obese Neck Neck Exam: Neck Supple Pulmonary Resp Exam: Decreased Bases Cardiology CV Exam: Arrhythmia Gastrointestinal/Abdomen GI Exam: Bowel Sounds Hypoactive Extremeties Extremities Exam: Trace Edema Neurologic Neuro Exam: Alert, Awake Psychiatric Psych Exam: Appropriate Responses Assessment/Plan Problem List: (1) Acute on chronic renal insufficiency ICD Codes: N28.9 - Disorder of kidney and ureter, unspecified; N18.9 - Chronic kidney disease, unspecified Status: Acute Plan: Patient is in acute renal failure and had chronic kidney disease ESRD with no recovery UF 4 L yesterday May try to wean off vent but if unsuccessful then may need to consider [facility] for Rehab Eliquis on hold Hemodialysis TTS, Trach O2 and wean off Vent G tube/Trach no obvious source of bleed GI Bleed GI following HD T,T,S schedule (2) Hypertension ICD Codes: I10 - Hypertension Status: Acute Plan: Blood pressure was low (3) Diabetes ICD Codes: E11.9 - Type 2 diabetes mellitus without complications Status: Acute Plan: Continue to monitor (4) COPD with acute exacerbation ICD Codes: J44.1 - Chronic obstructive pulmonary disease with (acute) exacerbation Plan: extubated Problem Qualifiers (1) Diabetes: Tonja Grewal MD May 19, 2017 12:19
--- NOTE | 2017-05-19 14:45 | HHI.CCPN ---
Subjective Remarks/Hospital Course The patient is an 82 year old female past with past medical history significant for hypertension, atrial fibrillation, diabetes mellitus, obesity, hypothyroidism, hyperlipidemia, diabetic neuropathy, who was seen in ED 3 days ago bronchospasm. She has COPD/Asthma and restrictive lung disease related to her obesity. Patient was treated for reactive airway disease, given breathing treatments and was discharged on as needed inhalers. Patient was brought in today by her as she was having shortness of breath and on the way to the ED when she slumped over in the car. In the emergency department she showed agonal breathing, she was intubated for airway protection emergently. Patient was given Solu-Medrol and breathing treatments and was placed on the mechanical ventilation. Chest x-ray showed bilateral infiltrates concerning for pneumonia. CT of the head was negative. I evaluated the patient in the ICU. She is on minimal sedation and mild attempts to wake up and intermittently tries to follows commands. She still on high oxygen requirement FiO2 is 60% with a PEEP of 5. I have increased the PEEP to 10. I have started the patient on scheduled IV Solu-Medrol, DuoNeb breathing treatments, cefepime and azithromycin for probable pneumonia. 04/20 Remains intubated, off sedation following commands. Currently FiO2 had been weaned to 40%. Urine output 950 ml since admission. Start SBT, Bumex 1 mg IV x1. 04/21: Tolerating CPAP better today, Appears calm following commands. UO adequate, though creat increasing. Cultures remain negative 04/22: Extubated yesterday required BiPAP overnight. Currently on nasal cannula slightly tachypneic but able to talk in full sentences maintaining oxygen saturation 04/23: Breathing more comfortably today on nasal cannula. Daughter At the bedside. Urine output adequate, creatinine has slightly improved 05/05: Rapid response team was called due to patient's altered mental status and hypoxemia. She was immediately transferred to ICU with a blood gas showing severe hypercarbic acidosis and was immediately intubated. She also became slightly hypotensive requiring a central line placement and initiation of vasopressor therapy 05/06: Awake and alert but not following commands. Nods head but inappropriately to questions. CAM ICU positive. Sedation is currently been held. Off norepinephrine. Currently nothing by mouth. 05/07: Tmax 100.4 Patient awake following commands. Sedation off a greater than 24-hour. Discussion of CODE STATUS with patient and daughter, patient states she requests to be full code explanation provided in detail. CODE STATUS changed to full code. Sputum cultures pending. Empiric antibiotics initiated Levaquin and cefepime. Patient continues on CPAP trials. The patient lasted 13 hours yesterday on CPAP. Plan for Vas-Cath placement by interventional radiology scheduled for 05/10. 05/08: Patient continues on CPAP trials, alert and responsive, denies pain. Plan for obtaining SBT parameters today a successful will extubate. Sputum culture revealed initial preliminary results of budding yeasts, micafungin added to medication regimen. Patient's scheduled by IR placement of Vas-Cath in a.m.. Patient continues on Reglan and nothing by mouth status per GI, large amounts of diarrhea/loose stools, plan for KUB this afternoon. 05/09: Tmax 99.0. The patient tolerated CPAP trials continuation overnight, approximately 24 hours. SBT performed last evening,WNL. Patient remains awake , alert and interactive. The patient is scheduled for permacath placement via IR this a.m. to be followed by dialysis. Plan for SBT trial postdialysis with a trial of extubation. Throughout the night the patient became tachycardic, with systolic blood pressure greater than 160s. Metoprolol resumed. Patient complained of throat pain early this a.m. relieved with Tylenol. GI following, obtained repeat KUB yesterday we'll await recommendations. Plan to discontinue IV fluids and initiate PPN. 05/10: Afebrile. Patient underwent IHD with 3 L fluid removal yesterday. Plan for permacath placement today. Patient noted to be continued hypertensive, Cardizem home medication resumed. Patient underwent SBT trials postdialysis yesterday with subsequent failure unable to extubate. Plan for repeat SBT parameters today, with anticipation of possible extubation. 05/11: Remains orally intubated on mechanical ventilation. EGD unremarkable 05/12: Remains orally intubated on mechanical ventilation. Had chest pain yesterday with EKG changes in the lateral leads. Troponin borderline 0.51. Hemoglobin 6.6 for which 2 units PRBCs were transfused yesterday. Patient was noted to have rectal bleeding this morning for which GI was notified. 05/13: Hemoglobin 5.7. Patient to receive 3 units packed red blood cells with dialysis today. Last evening the patient continued into A. fib heart rate in the 130s received 1 dose of 0.5 mg of morphine, for chest pain during the night , PRN Beta Blockers. Continues with Nitropaste. Patient denies abdominal pain. Tentative plan for colonoscopy tomorrow with Dr. Hernández. 05/14: Tmax 100.2. Patient received GoLYTELY in for scheduled colonoscopy today. Patient had 2 L stool output overnight, maroon-colored. Repeat hemoglobin performed stable 9.5. A. fib now rate controlled. Patient was noted to have hematuria during the night, heparin SQ prophylaxis was discontinued yesterday secondary to bleeding however the patient receives heparin during the dialysis. Fibrinogen and HIT panel labs pending. Reconsulted colorectal surgery, initial consult placed 05/01/[address] Tam. Patient denies abdominal pain. 05/15 Colonscopy yesterday with large internal hemorrhoids, large amount of stool in colon. Dignishield removed after colonscopy and no BM since. Patient denies abdominal pain. CPAP today and tolerates 15/5 but RSBI in 120s when pressure support lowered. Discussed with patient and daughter at bedside and they are anticipating trach and agreeable to proceed. Afib with occasional RVR 05/16: hgb stable. plan for trach today. 05/17: s/p trach and peg yesterday. on SBT today. fails for tachypnea and low tidal volumes. otherwise no changes. no improvements. will need long-term acute care facility for vent weaning 05/18: continues to fail daily SBT trials for tachypnea and elevated RSBI. very weak. hypophosphatemia being actively replaced. awaiting placement. Subjective 05/19: failed additional SBT weaning attempts again today for tachypnea, became tachycardic and hypertensive. subjectively stated she felt fatigued and tired. placed back on full support. Objective Vital Signs Date Time Temp Pulse Resp B/P (MAP) Pulse Ox O2 Delivery O2 Flow Rate FiO2 05/19/17 12:49 100 30 05/19/17 10:00 103 05/19/17 08:00 99.5 19 127/66 (86) 05/19/17 07:00 Mechanical Ventilator Intake and Output 05/19/17 05/19/17 05/20/17 08:00 16:00 00:00 Intake Total 602 ml 50 ml Output Total 0 ml 250 ml Balance 602 ml -200 ml Result Diagram: 05/19/1744605/19/17446 Imaging Last Impressions Chest X-Ray 05/08/17 0600 Signed Impressions: Service Date/Time: Monday, May 08, 2017 03:23 - CONCLUSION: 1. Cardiomegaly and findings of vascular congestion without overt failure. There has been no significant change when compared to the prior exam. Brian Mcmanus MD Abdomen X-Ray 05/08/17 0000 Signed Impressions: Service Date/Time: Monday, May 08, 2017 15:33 - CONCLUSION: Persistent mild dilatation of the ascending colon and transverse colon. Findings favor ileus. There are no findings to indicate small bowel obstruction. When correlating with prior CT it is felt unlikely to represent any colonic obstruction. Duncan Avery MD Enema w/Water Soluble 05/02/17 0000 Signed Impressions: Service Date/Time: Tuesday, May 02, 2017 08:02 - CONCLUSION: 1. Limited suboptimal exam. The cecum and right colon could not be opacified despite repeated attempts. 2. Residual stool and mild to moderate diverticulosis. Guevara Crowell MD Abdomen/Pelvis CT 05/02/17 0000 Signed Impressions: Service Date/Time: Tuesday, May 02, 2017 19:58 - CONCLUSION: 1. Nonspecific bowel gas pattern remains with contrast noted in the colon from the recent Gastrografin enema. The cecum remains distended. A rectal catheter is present. 2. No free air or fluid. 3. Small pleural effusions with mild consolidation in the lung bases. 4. Stable small adrenal masses likely representing adenomas. 5. Small nonobstructing left renal calculus. Guevara Crowell MD Catheter Placement X-Ray 05/01/17 0000 Signed Impressions: Service Date/Time: Monday, May 01, 2017 11:45 - CONCLUSION: Uncomplicated line placement as above. Brian Mcmanus MD Renal Ultrasound 04/20/17 0000 Signed Impressions: Service Date/Time: April 15:07 - CONCLUSION: 1. There is no hydronephrosis. 2. Stable 8mm nonobstructing left renal stone. Duncan Avery MD Head CT 04/19/17 0702 Signed Impressions: Service Date/Time: Wednesday, April 19, 2017 07:29 - CONCLUSION: 1. Cerebral white matter hypodensity characteristic of chronic microvascular ischemic disease. 2. No evidence of acute infarct, hemorrhage, mass or edema. Renato Coughlin MD Last Impressions Chest X-Ray 05/06/17 0000 Signed Impressions: Service Date/Time: Saturday, May 06, 2017 03:22 - CONCLUSION: Left IJ central venous catheter courses superiorly in the region of the SVC with the tip in the region of distal right internal jugular vein or right brachiocephalic vein. This could be retracted 5 cm. No evidence of pneumothorax. Hussain Green MD Abdomen X-Ray 05/04/17 0600 Signed Impressions: Service Date/Time: May 06:03 - CONCLUSION: Contrast through to the rectum. Basically stable dilatation of the proximal colon Duncan Delgado MD Enema w/Water Soluble 05/02/17 0000 Signed Impressions: Service Date/Time: Tuesday, May 02, 2017 08:02 - CONCLUSION: 1. Limited suboptimal exam. The cecum and right colon could not be opacified despite repeated attempts. 2. Residual stool and mild to moderate diverticulosis. Guevara Crowell MD Abdomen/Pelvis CT 05/02/17 0000 Signed Impressions: Service Date/Time: Tuesday, May 02, 2017 19:58 - CONCLUSION: 1. Nonspecific bowel gas pattern remains with contrast noted in the colon from the recent Gastrografin enema. The cecum remains distended. A rectal catheter is present. 2. No free air or fluid. 3. Small pleural effusions with mild consolidation in the lung bases. 4. Stable small adrenal masses likely representing adenomas. 5. Small nonobstructing left renal calculus. Guevara Crowell MD Catheter Placement X-Ray 05/01/17 0000 Signed Impressions: Service Date/Time: Monday, May 01, 2017 11:45 - CONCLUSION: Uncomplicated line placement as above. Brian Mcmanus MD Renal Ultrasound 04/20/17 0000 Signed Impressions: Service Date/Time: April 15:07 - CONCLUSION: 1. There is no hydronephrosis. 2. Stable 8mm nonobstructing left renal stone. Duncan Avery MD Head CT 04/19/17 0702 Signed Impressions: Service Date/Time: Wednesday, April 19, 2017 07:29 - CONCLUSION: 1. Cerebral white matter hypodensity characteristic of chronic microvascular ischemic disease. 2. No evidence of acute infarct, hemorrhage, mass or edema. Renato Coughlin MD Objective Remarks GENERAL: 82-year-old female, sitting up in bed. SKIN: Warm and dry. HEAD: Atraumatic. Normocephalic. EYES: Pupils equal and round. No scleral icterus. No injection or drainage. ENT: No nasal bleeding or discharge. Mucous membranes pink and moist. NECK: Trachea midline. No JVD. trach in place without evidence of bleeding or discharge. CARDIOVASCULAR: Irregularly irregular, afib on the monitor RESPIRATORY: No accessory muscle use. Breath sounds equal bilaterally. Coarse bibasilar GASTROINTESTINAL: Abdomen obese, soft, nontender. PEG in place. MUSCULOSKELETAL: Extremities without clubbing, cyanosis. 1+ edema all extremities, anasarca. VASC: Right subclavian permacath in place with dressing clean/dry/intact. NEUROLOGICAL: Awake and alert, makes eye contact and nods appropriately. Communicates in writing. No obvious cranial nerve deficits. Moves all 4 extremities spontaneously. Procedures 05/10 - IR for permacath 05/11 EGD A/P Assessment and Plan NEURO/PSYCH: Acute metabolic encephalopathy-resolved - Goal RASS 0 - CT of the head negative for acute findings -Gabapentin 100 twice a day has been on hold. - Morphine when necessary pain (held) receiving only as needed dosing, while continuing CPAP - Tylenol 650 mg every 6 hours when necessary for pain RESP: Acute hypoxemic respiratory failure - persistent. subacute. Pneumonia COPD with exacerbation Restrictive lung disease Failure to wean - Extubated 04/21. Reintubated 05/05. - failing SBTs daily for RSBI > 100, tachypnea, RR > 35, tidal volumes < 250cc. continue daily trials. - s/p trach 05/[address] Mathews/Brandon. Ventilator bundle -DuoNebs CV: Chronic A. fib- rate controlled Hypertension Chest pain- resolved - diltiazem 90 mg q6 , continue metoprolol 50 mg twice a day. 05/07- digoxin level 1.3 . Digoxin has been on hold in view of ESRD but may need to resume if RVR persists. better controlled today. -Holding Apixaban currently due to anemia, GI bleeding. - PPN @ 42cc/hr started on 05/10 - On atorvastatin 20 mg daily for dyslipidemia. - ASA on hold due to GI bleeding. - Dr. Cuevas evaluated 05/12 due to chest pain and recommended conservative management. Signed off. -2-D echo ild concentric LVH.EF 60-65%. -Lisinopril patient's home med has been discontinued in the setting of CKD. GI: Colonic ileus Melena GI Bleed Gastrografin enema 05/02. Proximal colonic dilatation. Patient is having bowel movements. No abdominal pain Famotidine for GI prophylaxis 05/11 EGD - normal esophagus, normal stomach, normal duodenal mucosa to the second portion 05/08 repeat KUB-mildly dilated ascending and transverse colon. Distention unchanged, but transverse colon distally more dilated 05/09 PPN 42cc/hr, and lipids Colonoscopy 05/[address] Hernández - large internal hemorrhoids felt to be source of bleeding.. Diverticulum in the sigmoid colon. Significant amount of stool within the colon. Recommended repeat colonoscopy in 6 months. Colorectal surgery initially consulted 05/01/17, Dr. Tam. transitioning to tube feeds from PPN. RENAL: Acute on chronic kidney disease Secondary hyperparathyroidism Hematuria - IHD Monday/ and Monday per Nephrology -Dr. Grewal - R subclavian permacath 05/10/17 - Continue Calciferol 0.25 mcg daily for secondary hyperparathyroidism ID: Severe sepsis, resolved Pneumonia, resolved - Blood sputum and urine culture, all negative to date - s/p Cefepime and Levaqin. watch off antibiotics (Dr. Miesha Dias). No leukocytosis. Panculture if recurrent fever. -Was on micafungin 05/08-05/14 -pro-calcitonin elevation may be secondary to renal failure. HEME: Leukocytosis-resolved Normocytic anemia Acute blood loss anemia Thrombocytopenia Superficial thrombophlebitis, right cephalic vein. - 05/14 U/s BUE - Occlusive thrombus right cephalic vein. Neg LUE. -Holding apixaban -05/13 Transfuse 3 units packed red blood cells with dialysis, 05/12 patient received 1 unit PRBC -daily cbc. - HIT Ab negative and fibrinogen normal 05/14 - despite occlusive thrombus, recent GI bleeding makes her high risk for anticoagulation. risk/benefit is in favor of holding anticoagulation. ENDO: Hypothyroidism Type 2 diabetes - Continue levothyroxine at 125 g daily - Continue insulin detemir 10 units twice a day, medium dose sliding scale q 6 hours with glucose at target MSK: OA/OP Critical illness polyneuropathy Continue cholecalciferol 400 units twice a day PT evaluate and treat PT requested functional maintenance daily PROPH: - Bilateral lower extremity SCDs, heparin SQ placed on hold 05/13 due to acute blood loss anemia. LINES: -PIV LUE. Right subclavian permacath 05/10/1705/07: Discussed with Vitaliy Sales and daughter. Full CODE STATUS. All family members acknowledge understanding and present in room during discussion. CODE STATUS will be changed. Palliative care consulted as well for goals of care. 05/08: Palliative of care meeting, patient instituted daughter as primary POA. 05/13: Extensive discussion with POA's son and daughter, and regarding need for blood transfusion, plan for colonoscopy tomorrow. Post colonoscopy, will attempt CPAP and SBT parameters,if unsuccessful, tentative plan for tracheostomy scheduled for Wednesday 05/16 Overall Impression: at this point, very slow forward progress. will attempt daily SBTs and weaning, but strength is an issue and will take a large amount of pulmonary rehab to regain enough function. needs placement in LTAC at this point. Quan Mathews MD May 19, 2017 14:45
[2017-05-19] MEDS: FAT EMULSION 20% INJ 250 ML (@10 mls/hr) IV SCH (20:00)
[2017-05-19] MEDS: ATORVASTATIN 20 MG TAB PO SCH (20:05)
[2017-05-19] MEDS: REMOVE OLD PATCH T-DERMAL SCH (20:07)
[2017-05-19] MEDS ORDERED: SODIUM PHOSPHATE INJ 30 MMOL in SODIUM CHLOR 0.9% 250 ML INJ 250 ML IV ONE (21:00)
[2017-05-19] MEDS: diphenhydrAMINE HCL 25 MG CAP PO PRN (21:17)
[2017-05-19] MEDS: ACETAMINOPHEN/HYDROcodone 325 MG/5 MG TAB PO PRN (21:18)
[2017-05-20] VITALS (18 sets, daily range): BP systolic 144–200; BP diastolic 65–93; PULSE 75–104; RESP 18–31; TEMP 98.7–98.9; O2SAT 99–100
[2017-05-20] MEDS: DILTIAZEM HCL 90 MG TAB PO SCH ×4 (01:00→17:47)
[2017-05-20] MEDS: CHLORHEXIDINE GLUCONATE 2 % 1 PACK (2 CLOTHS) TOP SCH (04:00)
[2017-05-20 05:24] LABS: HEMATOCRIT 24.2 % (35.0-46.0); MEAN CELL VOLUME 89.6 FL (80.0-100.0); MEAN CORPUSCULAR HEMOGLOBIN 29.9 PG (27.0-34.0); MEAN CORPUSCULAR HGB CONC 33.3 % (32.0-36.0); PLATELET COUNT 159 TH/MM3 (150-450); RED CELL DISTRIBUTION WIDTH 17.1 % (11.6-17.2); REVIEW FLAG FINAL; WHITE BLOOD COUNT 16.5 TH/MM3 (4.0-11.0)
[2017-05-20] MEDS: ARTIFICIAL TEARS OPTH SOLN 15 ML BTL EACH EYE SCH ×3 (06:00→22:37)
[2017-05-20 06:23] LABS: BICARBONATE 27.5 MEQ/L (21.0-32.0); POTASSIUM 3.1 MEQ/L (3.5-5.1)
[2017-05-20] MEDS: ACETAMINOPHEN/HYDROcodone 325 MG/5 MG TAB PO PRN ×2 (06:28→20:17)
[2017-05-20] MEDS: LEVOTHYROXINE SODIUM 125 MCG TAB PO SCH (06:38)
[2017-05-20] MEDS: INSULIN ASPART SUPPLEMENTAL SCALE SQ SCH ×4 (06:39→17:47)
[2017-05-20] MEDS: SODIUM CHLORIDE 0.9% FLUSH 10 ML FLUSH IV FLUSH SCH ×2 (08:36→20:18)
[2017-05-20] MEDS: METOPROLOL TARTRATE 50 MG TAB PO SCH ×2 (08:36→20:16)
[2017-05-20] MEDS: LACTOBACILLUS ACIDOPHILUS TAB PO SCH ×3 (08:36→17:47)
[2017-05-20] MEDS: INSULIN DETEMIR 100 UNITS/ML VIAL SQ SCH ×2 (08:37→21:44)
[2017-05-20] MEDS: MULTIVITAMINS/MINERALS THERAPEUTIC TAB PO SCH ×2 (08:37→20:18)
[2017-05-20] MEDS: CHOLECALCIFEROL (VIT D3) 400 UNIT TAB PO SCH ×2 (08:37→20:16)
[2017-05-20] MEDS: LANSOPRAZOLE SOLUTAB 30 MG TAB NG SCH (08:37)
[2017-05-20] MEDS: CALCITRIOL 0.25 MCG CAP PO SCH (08:37)
[2017-05-20] MEDS: NITROGLYCERIN 0.2 MG/HR PATCH T-DERMAL SCH (08:38)
[2017-05-20] MEDS: MORPHINE SULFATE 2 MG/ML INJ IV PRN ×2 (10:10→19:54)
--- NOTE | 2017-05-20 12:57 | HHI.NPPN ---
Subjective History of Present Illness Patient is a 82-year-old with sepsis, COPD, intubation, diabetes, acute renal failure and chronic kidney disease. Additional Remarks Patient remain on the vent, failed breathing trials earlier Objective Data Data Vital Signs Date Time Temp Pulse Resp B/P (MAP) Pulse Ox O2 Delivery O2 Flow Rate FiO2 05/20/17 11:36 30 05/20/17 11:35 100 30 05/20/17 08:01 100 30 05/20/17 08:00 98.9 83 19 144/68 (93) 100 05/20/17 08:00 30 05/20/17 08:00 83 05/20/17 07:00 100 Mechanical Ventilator 30 05/20/17 06:00 75 05/20/17 04:08 100 30 05/20/17 04:00 98.9 90 18 150/65 (93) 100 05/20/17 04:00 30 05/20/17 04:00 90 05/20/17 02:00 101 05/20/17 01:03 100 30 05/20/17 00:00 30 05/20/17 00:00 98.7 101 18 155/68 (97) 100 05/20/17 00:00 101 05/19/17 22:00 72 05/19/17 20:30 30 05/19/17 20:30 98.9 72 18 142/59 (86) 100 05/19/17 20:30 72 05/19/17 20:00 Mechanical Ventilator 30 05/19/17 19:22 100 30 05/19/17 18:00 100 05/19/17 18:00 100 30 05/19/17 17:55 30 05/19/17 17:02 30 05/19/17 17:00 100 30 05/19/17 16:55 30 05/19/17 16:34 98 30 05/19/17 16:00 99.5 76 18 150/69 (96) 100 05/19/17 16:00 30 05/19/17 16:00 76 05/19/17 14:00 74 -: 05/20/17 0457 05/20/17 0457 Physical Exam General Appearance: No Acute Distress, Comfortable, Obese Neck Neck Exam: Neck Supple Pulmonary Resp Exam: Decreased Bases Cardiology CV Exam: Arrhythmia Gastrointestinal/Abdomen GI Exam: Bowel Sounds Hypoactive Extremeties Extremities Exam: Trace Edema Neurologic Neuro Exam: Alert, Awake Psychiatric Psych Exam: Appropriate Responses Assessment/Plan Problem List: (1) Acute on chronic renal insufficiency ICD Codes: N28.9 - Disorder of kidney and ureter, unspecified; N18.9 - Chronic kidney disease, unspecified Status: Acute Plan: Patient is in acute renal failure and had chronic kidney disease ESRD with no recovery May try to wean off vent but if unsuccessful then may need to consider [facility] for Rehab Eliquis on hold Hemodialysis TTS - will plan for HD today. (Then HD Monday and Monday - holiday schedule this week) Trach O2 and wean off Vent G tube/Trach no obvious source of bleed GI Bleed GI following (2) Hypertension ICD Codes: I10 - Hypertension Status: Acute Plan: BP stable (3) Diabetes ICD Codes: E11.9 - Type 2 diabetes mellitus without complications Status: Acute Plan: Continue to monitor (4) COPD with acute exacerbation ICD Codes: J44.1 - Chronic obstructive pulmonary disease with (acute) exacerbation Plan: With trach - UF as tolerated with HD Problem Qualifiers (1) Diabetes: Serge Cisneros MD May 20, 2017 12:57
--- NOTE | 2017-05-20 13:55 | HHI.CCPN ---
Subjective Remarks/Hospital Course The patient is an 82 year old female past with past medical history significant for hypertension, atrial fibrillation, diabetes mellitus, obesity, hypothyroidism, hyperlipidemia, diabetic neuropathy, who was seen in ED 3 days ago bronchospasm. She has COPD/Asthma and restrictive lung disease related to her obesity. Patient was treated for reactive airway disease, given breathing treatments and was discharged on as needed inhalers. Patient was brought in today by her as she was having shortness of breath and on the way to the ED when she slumped over in the car. In the emergency department she showed agonal breathing, she was intubated for airway protection emergently. Patient was given Solu-Medrol and breathing treatments and was placed on the mechanical ventilation. Chest x-ray showed bilateral infiltrates concerning for pneumonia. CT of the head was negative. I evaluated the patient in the ICU. She is on minimal sedation and mild attempts to wake up and intermittently tries to follows commands. She still on high oxygen requirement FiO2 is 60% with a PEEP of 5. I have increased the PEEP to 10. I have started the patient on scheduled IV Solu-Medrol, DuoNeb breathing treatments, cefepime and azithromycin for probable pneumonia. 04/20 Remains intubated, off sedation following commands. Currently FiO2 had been weaned to 40%. Urine output 950 ml since admission. Start SBT, Bumex 1 mg IV x1. 04/21: Tolerating CPAP better today, Appears calm following commands. UO adequate, though creat increasing. Cultures remain negative 04/22: Extubated yesterday required BiPAP overnight. Currently on nasal cannula slightly tachypneic but able to talk in full sentences maintaining oxygen saturation 04/23: Breathing more comfortably today on nasal cannula. Daughter At the bedside. Urine output adequate, creatinine has slightly improved 05/05: Rapid response team was called due to patient's altered mental status and hypoxemia. She was immediately transferred to ICU with a blood gas showing severe hypercarbic acidosis and was immediately intubated. She also became slightly hypotensive requiring a central line placement and initiation of vasopressor therapy 05/06: Awake and alert but not following commands. Nods head but inappropriately to questions. CAM ICU positive. Sedation is currently been held. Off norepinephrine. Currently nothing by mouth. 05/07: Tmax 100.4 Patient awake following commands. Sedation off a greater than 24-hour. Discussion of CODE STATUS with patient and daughter, patient states she requests to be full code explanation provided in detail. CODE STATUS changed to full code. Sputum cultures pending. Empiric antibiotics initiated Levaquin and cefepime. Patient continues on CPAP trials. The patient lasted 13 hours yesterday on CPAP. Plan for Vas-Cath placement by interventional radiology scheduled for 05/10. 05/08: Patient continues on CPAP trials, alert and responsive, denies pain. Plan for obtaining SBT parameters today a successful will extubate. Sputum culture revealed initial preliminary results of budding yeasts, micafungin added to medication regimen. Patient's scheduled by IR placement of Vas-Cath in a.m.. Patient continues on Reglan and nothing by mouth status per GI, large amounts of diarrhea/loose stools, plan for KUB this afternoon. 05/09: Tmax 99.0. The patient tolerated CPAP trials continuation overnight, approximately 24 hours. SBT performed last evening,WNL. Patient remains awake , alert and interactive. The patient is scheduled for permacath placement via IR this a.m. to be followed by dialysis. Plan for SBT trial postdialysis with a trial of extubation. Throughout the night the patient became tachycardic, with systolic blood pressure greater than 160s. Metoprolol resumed. Patient complained of throat pain early this a.m. relieved with Tylenol. GI following, obtained repeat KUB yesterday we'll await recommendations. Plan to discontinue IV fluids and initiate PPN. 05/10: Afebrile. Patient underwent IHD with 3 L fluid removal yesterday. Plan for permacath placement today. Patient noted to be continued hypertensive, Cardizem home medication resumed. Patient underwent SBT trials postdialysis yesterday with subsequent failure unable to extubate. Plan for repeat SBT parameters today, with anticipation of possible extubation. 05/11: Remains orally intubated on mechanical ventilation. EGD unremarkable 05/12: Remains orally intubated on mechanical ventilation. Had chest pain yesterday with EKG changes in the lateral leads. Troponin borderline 0.51. Hemoglobin 6.6 for which 2 units PRBCs were transfused yesterday. Patient was noted to have rectal bleeding this morning for which GI was notified. 05/13: Hemoglobin 5.7. Patient to receive 3 units packed red blood cells with dialysis today. Last evening the patient continued into A. fib heart rate in the 130s received 1 dose of 0.5 mg of morphine, for chest pain during the night , PRN Beta Blockers. Continues with Nitropaste. Patient denies abdominal pain. Tentative plan for colonoscopy tomorrow with Dr. Hernández. 05/14: Tmax 100.2. Patient received GoLYTELY in for scheduled colonoscopy today. Patient had 2 L stool output overnight, maroon-colored. Repeat hemoglobin performed stable 9.5. A. fib now rate controlled. Patient was noted to have hematuria during the night, heparin SQ prophylaxis was discontinued yesterday secondary to bleeding however the patient receives heparin during the dialysis. Fibrinogen and HIT panel labs pending. Reconsulted colorectal surgery, initial consult placed 05/01/[address] Tam. Patient denies abdominal pain. 05/15 Colonscopy yesterday with large internal hemorrhoids, large amount of stool in colon. Dignishield removed after colonscopy and no BM since. Patient denies abdominal pain. CPAP today and tolerates 15/5 but RSBI in 120s when pressure support lowered. Discussed with patient and daughter at bedside and they are anticipating trach and agreeable to proceed. Afib with occasional RVR 05/16: hgb stable. plan for trach today. 05/17: s/p trach and peg yesterday. on SBT today. fails for tachypnea and low tidal volumes. otherwise no changes. no improvements. will need long-term acute care facility for vent weaning 05/18: continues to fail daily SBT trials for tachypnea and elevated RSBI. very weak. hypophosphatemia being actively replaced. awaiting placement. Subjective 05/19: failed additional SBT weaning attempts again today for tachypnea, became tachycardic and hypertensive. subjectively stated she felt fatigued and tired. placed back on full support. 05/20: Better on SBTs today using 15/8 to start. Looks around, tracks. Sitting up in chair. Objective Vital Signs Date Time Temp Pulse Resp B/P (MAP) Pulse Ox O2 Delivery O2 Flow Rate FiO2 05/20/17 11:36 30 05/20/17 11:35 100 05/20/17 08:00 98.9 83 19 144/68 (93) 05/20/17 07:00 Mechanical Ventilator Intake and Output 05/20/17 05/20/17 05/21/17 08:00 16:00 00:00 Intake Total 794 ml Output Total 0 ml Balance 794 ml Result Diagram: 05/20/17 0457 05/20/17 0457 Imaging Last Impressions Chest X-Ray 05/08/17 0600 Signed Impressions: Service Date/Time: Monday, May 08, 2017 03:23 - CONCLUSION: 1. Cardiomegaly and findings of vascular congestion without overt failure. There has been no significant change when compared to the prior exam. Brian Mcmanus MD Abdomen X-Ray 05/08/17 0000 Signed Impressions: Service Date/Time: Monday, May 08, 2017 15:33 - CONCLUSION: Persistent mild dilatation of the ascending colon and transverse colon. Findings favor ileus. There are no findings to indicate small bowel obstruction. When correlating with prior CT it is felt unlikely to represent any colonic obstruction. Duncan Avery MD Enema w/Water Soluble 05/02/17 0000 Signed Impressions: Service Date/Time: Tuesday, May 02, 2017 08:02 - CONCLUSION: 1. Limited suboptimal exam. The cecum and right colon could not be opacified despite repeated attempts. 2. Residual stool and mild to moderate diverticulosis. Guevara Crowell MD Abdomen/Pelvis CT 05/02/17 0000 Signed Impressions: Service Date/Time: Tuesday, May 02, 2017 19:58 - CONCLUSION: 1. Nonspecific bowel gas pattern remains with contrast noted in the colon from the recent Gastrografin enema. The cecum remains distended. A rectal catheter is present. 2. No free air or fluid. 3. Small pleural effusions with mild consolidation in the lung bases. 4. Stable small adrenal masses likely representing adenomas. 5. Small nonobstructing left renal calculus. Guevara Crowell MD Catheter Placement X-Ray 05/01/17 0000 Signed Impressions: Service Date/Time: Monday, May 01, 2017 11:45 - CONCLUSION: Uncomplicated line placement as above. Brian Mcmanus MD Renal Ultrasound 04/20/17 0000 Signed Impressions: Service Date/Time: April 15:07 - CONCLUSION: 1. There is no hydronephrosis. 2. Stable 8mm nonobstructing left renal stone. Duncan vAery MD Head CT 04/19/17 0702 Signed Impressions: Service Date/Time: Wednesday, April 19, 2017 07:29 - CONCLUSION: 1. Cerebral white matter hypodensity characteristic of chronic microvascular ischemic disease. 2. No evidence of acute infarct, hemorrhage, mass or edema. Renato Coughlin MD Last Impressions Chest X-Ray 05/06/17 0000 Signed Impressions: Service Date/Time: Saturday, May 06, 2017 03:22 - CONCLUSION: Left IJ central venous catheter courses superiorly in the region of the SVC with the tip in the region of distal right internal jugular vein or right brachiocephalic vein. This could be retracted 5 cm. No evidence of pneumothorax. Hussain Green MD Abdomen X-Ray 05/04/17 0600 Signed Impressions: Service Date/Time: May 06:03 - CONCLUSION: Contrast through to the rectum. Basically stable dilatation of the proximal colon Duncan Delgado MD Enema w/Water Soluble 05/02/17 0000 Signed Impressions: Service Date/Time: Tuesday, May 02, 2017 08:02 - CONCLUSION: 1. Limited suboptimal exam. The cecum and right colon could not be opacified despite repeated attempts. 2. Residual stool and mild to moderate diverticulosis. Guevara Crowell MD Abdomen/Pelvis CT 05/02/17 0000 Signed Impressions: Service Date/Time: Tuesday, May 02, 2017 19:58 - CONCLUSION: 1. Nonspecific bowel gas pattern remains with contrast noted in the colon from the recent Gastrografin enema. The cecum remains distended. A rectal catheter is present. 2. No free air or fluid. 3. Small pleural effusions with mild consolidation in the lung bases. 4. Stable small adrenal masses likely representing adenomas. 5. Small nonobstructing left renal calculus. Guevara Crowell MD Catheter Placement X-Ray 05/01/17 0000 Signed Impressions: Service Date/Time: Monday, May 01, 2017 11:45 - CONCLUSION: Uncomplicated line placement as above. Brian Mcmanus MD Renal Ultrasound 04/20/17 0000 Signed Impressions: Service Date/Time: April 15:07 - CONCLUSION: 1. There is no hydronephrosis. 2. Stable 8mm nonobstructing left renal stone. Duncan Avery MD Head CT 04/19/17 0702 Signed Impressions: Service Date/Time: Wednesday, April 19, 2017 07:29 - CONCLUSION: 1. Cerebral white matter hypodensity characteristic of chronic microvascular ischemic disease. 2. No evidence of acute infarct, hemorrhage, mass or edema. Renato Coughlin MD Objective Remarks GENERAL: 82-year-old female, sitting up in chair. SKIN: Warm and dry. HEAD: Atraumatic. Normocephalic. EYES: Pupils equal and round. No scleral icterus. No injection or drainage. ENT: No nasal bleeding or discharge. Mucous membranes pink and moist. NECK: Trachea midline. No JVD. trach in place, site clean. CARDIOVASCULAR: Irregularly irregular, afib on the monitor RESPIRATORY: No accessory muscle use. Breath sounds equal bilaterally. Sonorous rhonchi. GASTROINTESTINAL: Abdomen obese, soft, nontender. PEG in place. BS active. MUSCULOSKELETAL: Extremities without clubbing, cyanosis. 1+ edema all extremities, anasarca. VASC: Right subclavian permacath in place with dressing clean/dry/intact. NEUROLOGICAL: Awake and alert, makes eye contact and nods appropriately. Communicates in writing. No obvious cranial nerve deficits. Moves all 4 extremities spontaneously. Procedures 05/10 - IR for permacath 05/11 EGD A/P Assessment and Plan NEURO/PSYCH: Acute metabolic encephalopathy-resolved - Goal RASS 0 - CT of the head negative for acute findings -Gabapentin 100 twice a day has been on hold. - Morphine when necessary pain (held) receiving only as needed dosing, while continuing CPAP - Tylenol 650 mg every 6 hours when necessary for pain RESP: Acute hypoxemic respiratory failure - persistent. subacute. Pneumonia COPD with exacerbation Restrictive lung disease Failure to wean - Extubated 04/21. Reintubated 05/05. - failing SBTs daily for RSBI > 100, tachypnea, RR > 35, tidal volumes < 250cc. continue daily trials. - s/p trach 05/[address] Mathews/Brandon. Ventilator bundle -DuoNebs CV: Chronic A. fib- rate controlled Hypertension Chest pain- resolved - diltiazem 90 mg q6 , continue metoprolol 50 mg twice a day. 05/07- digoxin level 1.3 . Digoxin has been on hold in view of ESRD but may need to resume if RVR persists. better controlled today. -Holding Apixaban currently due to anemia, GI bleeding. - PPN @ 42cc/hr started on 05/10 - On atorvastatin 20 mg daily for dyslipidemia. - ASA on hold due to GI bleeding. - Dr. Cuevas evaluated 05/12 due to chest pain and recommended conservative management. Signed off. -2-D echo ild concentric LVH.EF 60-65%. -Lisinopril patient's home med has been discontinued in the setting of CKD. GI: Colonic ileus Melena GI Bleed Gastrografin enema 05/02. Proximal colonic dilatation. Patient is having bowel movements. No abdominal pain Famotidine for GI prophylaxis 05/11 EGD - normal esophagus, normal stomach, normal duodenal mucosa to the second portion 05/08 repeat KUB-mildly dilated ascending and transverse colon. Distention unchanged, but transverse colon distally more dilated 05/09 PPN 42cc/hr, and lipids Colonoscopy 05/[address] Hernández - large internal hemorrhoids felt to be source of bleeding.. Diverticulum in the sigmoid colon. Significant amount of stool within the colon. Recommended repeat colonoscopy in 6 months. Colorectal surgery initially consulted 05/01/17, Dr. Tam. transitioning to tube feeds from PPN. RENAL: Acute on chronic kidney disease Secondary hyperparathyroidism Hematuria - IHD Monday/ and Monday per Nephrology -Dr. Grewal - R subclavian permacath 05/10/17 - Continue Calciferol 0.25 mcg daily for secondary hyperparathyroidism ID: Severe sepsis, resolved Pneumonia, resolved - Blood sputum and urine culture, all negative to date - s/p Cefepime and Levaqin. watch off antibiotics (Dr. Miesha Dias). No leukocytosis. Panculture if recurrent fever. -Was on micafungin 05/08-05/14 -pro-calcitonin elevation may be secondary to renal failure. HEME: Leukocytosis-resolved Normocytic anemia Acute blood loss anemia Thrombocytopenia Superficial thrombophlebitis, right cephalic vein. - 05/14 U/s BUE - Occlusive thrombus right cephalic vein. Neg LUE. -Holding apixaban -05/13 Transfuse 3 units packed red blood cells with dialysis, 05/12 patient received 1 unit PRBC -daily cbc. - HIT Ab negative and fibrinogen normal 05/14 - despite occlusive thrombus, recent GI bleeding makes her high risk for anticoagulation. risk/benefit is in favor of holding anticoagulation. ENDO: Hypothyroidism Type 2 diabetes - Continue levothyroxine at 125 g daily - Continue insulin detemir 10 units twice a day, medium dose sliding scale q 6 hours with glucose at target MSK: OA/OP Critical illness polyneuropathy Continue cholecalciferol 400 units twice a day PT evaluate and treat PT requested functional maintenance daily PROPH: - Bilateral lower extremity SCDs, heparin SQ placed on hold 05/13 due to acute blood loss anemia. LINES: -PIV LUE. Right subclavian permacath 05/10/1705/07: Discussed with Vitaliy Sales and daughter. Full CODE STATUS. All family members acknowledge understanding and present in room during discussion. CODE STATUS will be changed. Palliative care consulted as well for goals of care. 05/08: Palliative of care meeting, patient instituted daughter as primary POA. 05/13: Extensive discussion with POA's son and daughter, and regarding need for blood transfusion, plan for colonoscopy tomorrow. Post colonoscopy, will attempt CPAP and SBT parameters,if unsuccessful, tentative plan for tracheostomy scheduled for Wednesday 05/16 Overall Impression: Very slow progress. Continue to attempt daily SBTs and weaning, but strength is an issue and will take a large amount of pulmonary rehab to regain enough function. needs placement in LTAC at this point. Asher Taylor MD May 20, 2017 13:55
[2017-05-20] MEDS: GENTAMICIN SULFATE (DIALYSIS USE ONLY) 20 MG/2 ML VIAL OTHER PRN (17:37)
[2017-05-20] MEDS: HEPARIN SODIUM - IV 10,000 UNITS/10 ML VIAL PRN (17:37)
[2017-05-20] MEDS: EPOETIN ALFA 10,000 UNITS/ML VIAL IV PUSH PRN (17:37)
[2017-05-20] MEDS: CHLORHEXIDINE 0.12% (ORAL KIT) 15 ML CUP MT SCH ×2 (19:52→20:19)
[2017-05-20] MEDS: ATORVASTATIN 20 MG TAB PO SCH (20:18)
[2017-05-20] MEDS: REMOVE OLD PATCH T-DERMAL SCH (21:00)
[2017-05-21] VITALS (15 sets, daily range): BP systolic 97–176; BP diastolic 51–95; PULSE 82–104; RESP 18–32; TEMP 98.2–98.8; O2SAT 93–100
[2017-05-21] MEDS: DILTIAZEM HCL 90 MG TAB PO SCH ×5 (00:33→23:42)
[2017-05-21] MEDS: LEVOTHYROXINE SODIUM 125 MCG TAB PO SCH (05:35)
[2017-05-21] MEDS: CHLORHEXIDINE GLUCONATE 2 % 1 PACK (2 CLOTHS) TOP SCH (05:36)
[2017-05-21] MEDS: INSULIN ASPART SUPPLEMENTAL SCALE SQ SCH ×5 (06:16→23:42)
[2017-05-21] MEDS: ARTIFICIAL TEARS OPTH SOLN 15 ML BTL EACH EYE SCH ×3 (06:25→21:54)
[2017-05-21 06:26] LABS: HEMATOCRIT 25.6 % (35.0-46.0); MEAN CELL VOLUME 89.3 FL (80.0-100.0); MEAN CORPUSCULAR HEMOGLOBIN 29.1 PG (27.0-34.0); MEAN CORPUSCULAR HGB CONC 32.5 % (32.0-36.0); PLATELET COUNT 170 TH/MM3 (150-450); RED BLOOD COUNT 2.87 MIL/MM3 (4.00-5.30); REVIEW FLAG FINAL
[2017-05-21 06:30] LABS: BICARBONATE 28.5 MEQ/L (21.0-32.0); POTASSIUM 3.1 MEQ/L (3.5-5.1)
[2017-05-21] MEDS: METOPROLOL TARTRATE 5 MG/5 ML VIAL IV PUSH PRN ×3 (06:38→08:45)
--- NOTE | 2017-05-21 07:56 | HHI.CCPN ---
Subjective Remarks/Hospital Course The patient is an 82 year old female past with past medical history significant for hypertension, atrial fibrillation, diabetes mellitus, obesity, hypothyroidism, hyperlipidemia, diabetic neuropathy, who was seen in ED 3 days ago bronchospasm. She has COPD/Asthma and restrictive lung disease related to her obesity. Patient was treated for reactive airway disease, given breathing treatments and was discharged on as needed inhalers. Patient was brought in today by her as she was having shortness of breath and on the way to the ED when she slumped over in the car. In the emergency department she showed agonal breathing, she was intubated for airway protection emergently. Patient was given Solu-Medrol and breathing treatments and was placed on the mechanical ventilation. Chest x-ray showed bilateral infiltrates concerning for pneumonia. CT of the head was negative. I evaluated the patient in the ICU. She is on minimal sedation and mild attempts to wake up and intermittently tries to follows commands. She still on high oxygen requirement FiO2 is 60% with a PEEP of 5. I have increased the PEEP to 10. I have started the patient on scheduled IV Solu-Medrol, DuoNeb breathing treatments, cefepime and azithromycin for probable pneumonia. 04/20 Remains intubated, off sedation following commands. Currently FiO2 had been weaned to 40%. Urine output 950 ml since admission. Start SBT, Bumex 1 mg IV x1. 04/21: Tolerating CPAP better today, Appears calm following commands. UO adequate, though creat increasing. Cultures remain negative 04/22: Extubated yesterday required BiPAP overnight. Currently on nasal cannula slightly tachypneic but able to talk in full sentences maintaining oxygen saturation 04/23: Breathing more comfortably today on nasal cannula. Daughter At the bedside. Urine output adequate, creatinine has slightly improved 05/05: Rapid response team was called due to patient's altered mental status and hypoxemia. She was immediately transferred to ICU with a blood gas showing severe hypercarbic acidosis and was immediately intubated. She also became slightly hypotensive requiring a central line placement and initiation of vasopressor therapy 05/06: Awake and alert but not following commands. Nods head but inappropriately to questions. CAM ICU positive. Sedation is currently been held. Off norepinephrine. Currently nothing by mouth. 05/07: Tmax 100.4 Patient awake following commands. Sedation off a greater than 24-hour. Discussion of CODE STATUS with patient and daughter, patient states she requests to be full code explanation provided in detail. CODE STATUS changed to full code. Sputum cultures pending. Empiric antibiotics initiated Levaquin and cefepime. Patient continues on CPAP trials. The patient lasted 13 hours yesterday on CPAP. Plan for Vas-Cath placement by interventional radiology scheduled for 05/10. 05/08: Patient continues on CPAP trials, alert and responsive, denies pain. Plan for obtaining SBT parameters today a successful will extubate. Sputum culture revealed initial preliminary results of budding yeasts, micafungin added to medication regimen. Patient's scheduled by IR placement of Vas-Cath in a.m.. Patient continues on Reglan and nothing by mouth status per GI, large amounts of diarrhea/loose stools, plan for KUB this afternoon. 05/09: Tmax 99.0. The patient tolerated CPAP trials continuation overnight, approximately 24 hours. SBT performed last evening,WNL. Patient remains awake , alert and interactive. The patient is scheduled for permacath placement via IR this a.m. to be followed by dialysis. Plan for SBT trial postdialysis with a trial of extubation. Throughout the night the patient became tachycardic, with systolic blood pressure greater than 160s. Metoprolol resumed. Patient complained of throat pain early this a.m. relieved with Tylenol. GI following, obtained repeat KUB yesterday we'll await recommendations. Plan to discontinue IV fluids and initiate PPN. 05/10: Afebrile. Patient underwent IHD with 3 L fluid removal yesterday. Plan for permacath placement today. Patient noted to be continued hypertensive, Cardizem home medication resumed. Patient underwent SBT trials postdialysis yesterday with subsequent failure unable to extubate. Plan for repeat SBT parameters today, with anticipation of possible extubation. 05/11: Remains orally intubated on mechanical ventilation. EGD unremarkable 05/12: Remains orally intubated on mechanical ventilation. Had chest pain yesterday with EKG changes in the lateral leads. Troponin borderline 0.51. Hemoglobin 6.6 for which 2 units PRBCs were transfused yesterday. Patient was noted to have rectal bleeding this morning for which GI was notified. 05/13: Hemoglobin 5.7. Patient to receive 3 units packed red blood cells with dialysis today. Last evening the patient continued into A. fib heart rate in the 130s received 1 dose of 0.5 mg of morphine, for chest pain during the night , PRN Beta Blockers. Continues with Nitropaste. Patient denies abdominal pain. Tentative plan for colonoscopy tomorrow with Dr. Hernández. 05/14: Tmax 100.2. Patient received GoLYTELY in for scheduled colonoscopy today. Patient had 2 L stool output overnight, maroon-colored. Repeat hemoglobin performed stable 9.5. A. fib now rate controlled. Patient was noted to have hematuria during the night, heparin SQ prophylaxis was discontinued yesterday secondary to bleeding however the patient receives heparin during the dialysis. Fibrinogen and HIT panel labs pending. Reconsulted colorectal surgery, initial consult placed 05/01/[address] Tam. Patient denies abdominal pain. 05/15 Colonscopy yesterday with large internal hemorrhoids, large amount of stool in colon. Dignishield removed after colonscopy and no BM since. Patient denies abdominal pain. CPAP today and tolerates 15/5 but RSBI in 120s when pressure support lowered. Discussed with patient and daughter at bedside and they are anticipating trach and agreeable to proceed. Afib with occasional RVR 05/16: hgb stable. plan for trach today. 05/17: s/p trach and peg yesterday. on SBT today. fails for tachypnea and low tidal volumes. otherwise no changes. no improvements. will need long-term acute care facility for vent weaning 05/18: continues to fail daily SBT trials for tachypnea and elevated RSBI. very weak. hypophosphatemia being actively replaced. awaiting placement. 05/19: failed additional SBT weaning attempts again today for tachypnea, became tachycardic and hypertensive. subjectively stated she felt fatigued and tired. placed back on full support. 05/20: Better on SBTs today using 15/8 to start. Looks around, tracks. Sitting up in chair. Subjective 05/21: phos still low despite replacement. will continue to replace. still subjectively and objectively still weak, requiring high amounts of support to tolerate any PSV mode, and failing quickly on SBT trials. Objective Vital Signs Date Time Temp Pulse Resp B/P (MAP) Pulse Ox O2 Delivery O2 Flow Rate FiO2 05/21/17 06:00 97 05/21/17 04:10 100 30 05/21/17 04:00 98.8 18 176/95 (122) 05/20/17 19:00 Mechanical Ventilator 6.00 Intake and Output 05/21/17 05/21/17 05/22/17 08:00 16:00 00:00 Intake Total 595 ml Output Total 0 ml Balance 595 ml Result Diagram: 05/21/17 0540 05/21/17 0540 Imaging Last Impressions Chest X-Ray 05/08/17 0600 Signed Impressions: Service Date/Time: Monday, May 08, 2017 03:23 - CONCLUSION: 1. Cardiomegaly and findings of vascular congestion without overt failure. There has been no significant change when compared to the prior exam. Brian Mcmanus MD Abdomen X-Ray 05/08/17 0000 Signed Impressions: Service Date/Time: Monday, May 08, 2017 15:33 - CONCLUSION: Persistent mild dilatation of the ascending colon and transverse colon. Findings favor ileus. There are no findings to indicate small bowel obstruction. When correlating with prior CT it is felt unlikely to represent any colonic obstruction. Duncan Avery MD Enema w/Water Soluble 05/02/17 0000 Signed Impressions: Service Date/Time: Tuesday, May 02, 2017 08:02 - CONCLUSION: 1. Limited suboptimal exam. The cecum and right colon could not be opacified despite repeated attempts. 2. Residual stool and mild to moderate diverticulosis. Guevara Crowell MD Abdomen/Pelvis CT 05/02/17 0000 Signed Impressions: Service Date/Time: Tuesday, May 02, 2017 19:58 - CONCLUSION: 1. Nonspecific bowel gas pattern remains with contrast noted in the colon from the recent Gastrografin enema. The cecum remains distended. A rectal catheter is present. 2. No free air or fluid. 3. Small pleural effusions with mild consolidation in the lung bases. 4. Stable small adrenal masses likely representing adenomas. 5. Small nonobstructing left renal calculus. Guevara Crowell MD Catheter Placement X-Ray 05/01/17 0000 Signed Impressions: Service Date/Time: Monday, May 01, 2017 11:45 - CONCLUSION: Uncomplicated line placement as above. Brian Mcmanus MD Renal Ultrasound 04/20/17 0000 Signed Impressions: Service Date/Time: April 15:07 - CONCLUSION: 1. There is no hydronephrosis. 2. Stable 8mm nonobstructing left renal stone. Duncan Avery MD Head CT 04/19/17 0702 Signed Impressions: Service Date/Time: Wednesday, April 19, 2017 07:29 - CONCLUSION: 1. Cerebral white matter hypodensity characteristic of chronic microvascular ischemic disease. 2. No evidence of acute infarct, hemorrhage, mass or edema. Renato Coughlin MD Last Impressions Chest X-Ray 05/06/17 0000 Signed Impressions: Service Date/Time: Saturday, May 06, 2017 03:22 - CONCLUSION: Left IJ central venous catheter courses superiorly in the region of the SVC with the tip in the region of distal right internal jugular vein or right brachiocephalic vein. This could be retracted 5 cm. No evidence of pneumothorax. Hussain Green MD Abdomen X-Ray 05/04/17 0600 Signed Impressions: Service Date/Time: May 06:03 - CONCLUSION: Contrast through to the rectum. Basically stable dilatation of the proximal colon Duncan Delgado MD Enema w/Water Soluble 05/02/17 0000 Signed Impressions: Service Date/Time: Tuesday, May 02, 2017 08:02 - CONCLUSION: 1. Limited suboptimal exam. The cecum and right colon could not be opacified despite repeated attempts. 2. Residual stool and mild to moderate diverticulosis. Guevara Crowell MD Abdomen/Pelvis CT 05/02/17 0000 Signed Impressions: Service Date/Time: Tuesday, May 02, 2017 19:58 - CONCLUSION: 1. Nonspecific bowel gas pattern remains with contrast noted in the colon from the recent Gastrografin enema. The cecum remains distended. A rectal catheter is present. 2. No free air or fluid. 3. Small pleural effusions with mild consolidation in the lung bases. 4. Stable small adrenal masses likely representing adenomas. 5. Small nonobstructing left renal calculus. Guevara Crowell MD Catheter Placement X-Ray 05/01/17 0000 Signed Impressions: Service Date/Time: Monday, May 01, 2017 11:45 - CONCLUSION: Uncomplicated line placement as above. Brain Mcmanus MD Renal Ultrasound 04/20/17 0000 Signed Impressions: Service Date/Time: April 15:07 - CONCLUSION: 1. There is no hydronephrosis. 2. Stable 8mm nonobstructing left renal stone. Duncan Avery MD Head CT 04/19/17 0702 Signed Impressions: Service Date/Time: Wednesday, April 19, 2017 07:29 - CONCLUSION: 1. Cerebral white matter hypodensity characteristic of chronic microvascular ischemic disease. 2. No evidence of acute infarct, hemorrhage, mass or edema. Renato Coughlin MD Objective Remarks GENERAL: 82-year-old female, sitting up in chair. SKIN: Warm and dry. HEAD: Atraumatic. Normocephalic. EYES: Pupils equal and round. No scleral icterus. No injection or drainage. ENT: No nasal bleeding or discharge. Mucous membranes pink and moist. NECK: Trachea midline. No JVD. trach in place, site clean. CARDIOVASCULAR: Irregularly irregular, afib on the monitor RESPIRATORY: No accessory muscle use. Breath sounds equal bilaterally. Sonorous rhonchi. GASTROINTESTINAL: Abdomen obese, soft, nontender. PEG in place. BS active. MUSCULOSKELETAL: Extremities without clubbing, cyanosis. 1+ edema all extremities, anasarca. VASC: Right subclavian permacath in place with dressing clean/dry/intact. NEUROLOGICAL: Awake and alert, makes eye contact and nods appropriately. Communicates in writing. No obvious cranial nerve deficits. Moves all 4 extremities spontaneously. Procedures 05/10 - IR for permacath 05/11 EGD A/P Assessment and Plan NEURO/PSYCH: Acute metabolic encephalopathy-resolved - Goal RASS 0 - CT of the head negative for acute findings -Gabapentin 100 twice a day has been on hold. - Morphine when necessary pain (held) receiving only as needed dosing, while continuing CPAP - Tylenol 650 mg every 6 hours when necessary for pain RESP: Acute hypoxemic respiratory failure - persistent. subacute. Pneumonia COPD with exacerbation Restrictive lung disease Failure to wean - Extubated 04/21. Reintubated 05/05. - failing SBTs daily for RSBI > 100, tachypnea, RR > 35, tidal volumes < 250cc. continue daily trials. - s/p trach 05/[address] Mathews/Brandon. Ventilator bundle -DuoNebs CV: Chronic A. fib- rate controlled Hypertension Chest pain- resolved - diltiazem 90 mg q6 , continue metoprolol 50 mg twice a day. 05/07- digoxin level 1.3 . Digoxin has been on hold in view of ESRD but may need to resume if RVR persists. better controlled today. -Holding Apixaban currently due to anemia, GI bleeding. - PPN @ 42cc/hr started on 05/10 - On atorvastatin 20 mg daily for dyslipidemia. - ASA on hold due to GI bleeding. - Dr. Cuevas evaluated 05/12 due to chest pain and recommended conservative management. Signed off. -2-D echo ild concentric LVH.EF 60-65%. -Lisinopril patient's home med has been discontinued in the setting of CKD. FEN/GI: Colonic ileus Melena GI Bleed Hypophosphatemia Gastrografin enema 05/02. Proximal colonic dilatation. Patient is having bowel movements. No abdominal pain Famotidine for GI prophylaxis 05/11 EGD - normal esophagus, normal stomach, normal duodenal mucosa to the second portion 05/08 repeat KUB-mildly dilated ascending and transverse colon. Distention unchanged, but transverse colon distally more dilated 05/09 PPN 42cc/hr, and lipids Colonoscopy 05/[address] Hernández - large internal hemorrhoids felt to be source of bleeding.. Diverticulum in the sigmoid colon. Significant amount of stool within the colon. Recommended repeat colonoscopy in 6 months. Colorectal surgery initially consulted 05/01/17, Dr. Tam. full tube feeds. off PPN continue aggressive phos replacement. recheck phos after replacements. RENAL: Acute on chronic kidney disease Secondary hyperparathyroidism Hematuria - IHD Monday/ and Monday per Nephrology -Dr. Grewal - R subclavian permacath 05/10/17 - Continue Calciferol 0.25 mcg daily for secondary hyperparathyroidism ID: Severe sepsis, resolved Pneumonia, resolved - Blood sputum and urine culture, all negative to date - s/p Cefepime and Levaqin. watch off antibiotics (Dr. Miesha Dias). No leukocytosis. Panculture if recurrent fever. -Was on micafungin 05/08-05/14 -pro-calcitonin elevation may be secondary to renal failure. HEME: Leukocytosis-resolved Normocytic anemia Acute blood loss anemia Thrombocytopenia Superficial thrombophlebitis, right cephalic vein. - 05/14 U/s BUE - Occlusive thrombus right cephalic vein. Neg LUE. -Holding apixaban -05/13 Transfuse 3 units packed red blood cells with dialysis, 05/12 patient received 1 unit PRBC -daily cbc. - HIT Ab negative and fibrinogen normal 05/14 - despite occlusive thrombus, recent GI bleeding makes her high risk for anticoagulation. risk/benefit is in favor of holding anticoagulation. ENDO: Hypothyroidism Type 2 diabetes - Continue levothyroxine at 125 g daily - Continue insulin detemir 10 units twice a day, medium dose sliding scale q 6 hours with glucose at target MSK: OA/OP Critical illness polyneuropathy Continue cholecalciferol 400 units twice a day PT evaluate and treat PT requested functional maintenance daily PROPH: - Bilateral lower extremity SCDs, heparin SQ placed on hold 05/13 due to acute blood loss anemia. LINES: -PIV LUE. Right subclavian permacath 05/10/1705/07: Discussed with Vitaliy Sales and daughter. Full CODE STATUS. All family members acknowledge understanding and present in room during discussion. CODE STATUS will be changed. Palliative care consulted as well for goals of care. 05/08: Palliative of care meeting, patient instituted daughter as primary POA. 05/13: Extensive discussion with POA's son and daughter, and regarding need for blood transfusion, plan for colonoscopy tomorrow. Post colonoscopy, will attempt CPAP and SBT parameters,if unsuccessful, tentative plan for tracheostomy scheduled for Wednesday 05/16 Overall Impression: Very slow progress. Continue to attempt daily SBTs and weaning, but strength is an issue and will take a large amount of pulmonary rehab to regain enough function. needs placement in LTAC at this point. Quan Mathews MD May 21, 2017 07:56
[2017-05-21] MEDS: CHLORHEXIDINE 0.12% (ORAL KIT) 15 ML CUP MT SCH ×2 (08:00→20:00)
[2017-05-21] MEDS: LACTOBACILLUS ACIDOPHILUS TAB PO SCH ×3 (08:31→17:52)
[2017-05-21] MEDS: LANSOPRAZOLE SOLUTAB 30 MG TAB NG SCH (08:31)
[2017-05-21] MEDS: INSULIN DETEMIR 100 UNITS/ML VIAL SQ SCH ×2 (08:31→21:12)
[2017-05-21] MEDS: CHOLECALCIFEROL (VIT D3) 400 UNIT TAB PO SCH ×2 (08:31→21:12)
[2017-05-21] MEDS: NITROGLYCERIN 0.2 MG/HR PATCH T-DERMAL SCH (08:31)
[2017-05-21] MEDS: SODIUM CHLORIDE 0.9% FLUSH 10 ML FLUSH IV FLUSH SCH ×2 (08:31→21:00)
[2017-05-21] MEDS: METOPROLOL TARTRATE 50 MG TAB PO SCH ×2 (08:31→21:11)
[2017-05-21] MEDS: CALCITRIOL 0.25 MCG CAP PO SCH (08:31)
[2017-05-21] MEDS: hydrALAZINE HCL 20 MG/ML VIAL IV PUSH PRN (08:31)
[2017-05-21] MEDS: MULTIVITAMINS/MINERALS THERAPEUTIC TAB PO SCH ×2 (08:31→21:11)
[2017-05-21] MEDS ORDERED: SODIUM CHLORID 0.9% IV ONE (09:00)
[2017-05-21] MEDS ORDERED: POTASSIUM PHOSPHATE IV ONE (09:00)
--- NOTE | 2017-05-21 12:14 | HHI.NPPN ---
Subjective History of Present Illness Patient is a 82-year-old with sepsis, COPD, intubation, diabetes, acute renal failure and chronic kidney disease. Additional Remarks Patient remain on the vent, failed breathing trials earlier Objective Data Data 05/21/17 05/22/17 19:00 07:00 Output Total 0 ml Balance 0 ml Tube Feeding Residual Discard 0 ml Bladder Scan Volume Amount 64 ml Vital Signs Date Time Temp Pulse Resp B/P (MAP) Pulse Ox O2 Delivery O2 Flow Rate FiO2 05/21/17 11:46 95 40 05/21/17 09:05 30 05/21/17 08:17 30 05/21/17 08:17 93 30 05/21/17 08:15 30 05/21/17 08:00 98.2 104 19 175/72 (106) 99 05/21/17 08:00 104 05/21/17 06:00 97 05/21/17 04:10 100 30 05/21/17 04:00 85 05/21/17 04:00 98.8 85 18 176/95 (122) 100 05/21/17 04:00 30 05/21/17 02:00 82 05/21/17 00:55 100 30 05/21/17 00:00 96 05/21/17 00:00 30 05/21/17 00:00 98.7 96 18 176/95 (122) 100 05/20/17 22:00 104 05/20/17 21:12 100 30 05/20/17 20:00 98.9 86 18 200/93 (128) 100 05/20/17 20:00 86 05/20/17 20:00 30 05/20/17 19:00 Mechanical Ventilator 6.00 30 05/20/17 18:00 90 05/20/17 16:21 99 30 05/20/17 16:00 30 05/20/17 16:00 96 05/20/17 16:00 98.7 96 28 158/84 (108) 100 05/20/17 14:00 93 -: 05/21/17 0540 05/21/17 0540 Physical Exam General Appearance: No Acute Distress, Comfortable, Obese Neck Neck Exam: Neck Supple Pulmonary Resp Exam: Decreased Bases Cardiology CV Exam: Arrhythmia Gastrointestinal/Abdomen GI Exam: Bowel Sounds Hypoactive Extremeties Extremities Exam: Trace Edema Neurologic Neuro Exam: Alert, Awake Psychiatric Psych Exam: Appropriate Responses Assessment/Plan Problem List: (1) Acute on chronic renal insufficiency ICD Codes: N28.9 - Disorder of kidney and ureter, unspecified; N18.9 - Chronic kidney disease, unspecified Status: Acute Plan: Patient is in acute renal failure and had chronic kidney disease ESRD with no recovery May try to wean off vent but if unsuccessful then may need to consider [facility] for Rehab Eliquis on hold Hemodialysis TTS HD done yesterday, nex HD Monday and Monday - holiday schedule this week) Trach O2 and wean off Vent G tube/Trach no obvious source of bleed GI Bleed GI following Phosphorus being replaced - continue to monitor K runs low, continue to monitor and adjust K with HD Monday. (2) Hypertension ICD Codes: I10 - Hypertension Status: Acute Plan: BP stable (3) Diabetes ICD Codes: E11.9 - Type 2 diabetes mellitus without complications Status: Acute Plan: Continue to monitor (4) COPD with acute exacerbation ICD Codes: J44.1 - Chronic obstructive pulmonary disease with (acute) exacerbation Plan: With trach - UF as tolerated with HD Problem Qualifiers (1) Diabetes: Serge Cisneros MD May 21, 2017 12:14
[2017-05-21] MEDS: REMOVE OLD PATCH T-DERMAL SCH (21:00)
[2017-05-21] MEDS: ATORVASTATIN 20 MG TAB PO SCH (21:11)
[2017-05-22] VITALS (19 sets, daily range): BP systolic 120–165; BP diastolic 60–72; PULSE 96–100; RESP 12–20; TEMP 98.2–99; O2SAT 94–100
[2017-05-22] MEDS: diphenhydrAMINE HCL 25 MG CAP PO PRN (02:34)
[2017-05-22] MEDS: CHLORHEXIDINE GLUCONATE 2 % 1 PACK (2 CLOTHS) TOP SCH (04:00)
[2017-05-22] MEDS: INSULIN ASPART SUPPLEMENTAL SCALE SQ SCH ×4 (05:08→23:57)
[2017-05-22] MEDS: ARTIFICIAL TEARS OPTH SOLN 15 ML BTL EACH EYE SCH ×3 (05:12→21:56)
[2017-05-22] MEDS: DILTIAZEM HCL 90 MG TAB PO SCH ×4 (05:12→23:39)
[2017-05-22] MEDS: LEVOTHYROXINE SODIUM 125 MCG TAB PO SCH (05:12)
[2017-05-22 05:28] LABS: HEMATOCRIT 25.6 % (35.0-46.0); MEAN CELL VOLUME 90.9 FL (80.0-100.0); MEAN CORPUSCULAR HEMOGLOBIN 30.2 PG (27.0-34.0); MEAN CORPUSCULAR HGB CONC 33.3 % (32.0-36.0); PLATELET COUNT 160 TH/MM3 (150-450); RED BLOOD COUNT 2.82 MIL/MM3 (4.00-5.30); RED CELL DISTRIBUTION WIDTH 17.2 % (11.6-17.2); WHITE BLOOD COUNT 18.1 TH/MM3 (4.0-11.0)
[2017-05-22 05:36] LABS: REVIEW FLAG FINAL
[2017-05-22 05:51] LABS: BICARBONATE 26.7 MEQ/L (21.0-32.0); POTASSIUM 3.7 MEQ/L (3.5-5.1)
[2017-05-22] MEDS: CHOLECALCIFEROL (VIT D3) 400 UNIT TAB PO SCH ×2 (09:00→21:58)
[2017-05-22] MEDS: INSULIN DETEMIR 100 UNITS/ML VIAL SQ SCH ×2 (09:00→21:55)
[2017-05-22] MEDS: NITROGLYCERIN 0.2 MG/HR PATCH T-DERMAL SCH (09:00)
[2017-05-22] MEDS: LACTOBACILLUS ACIDOPHILUS TAB PO SCH ×3 (09:16→18:27)
[2017-05-22] MEDS: LANSOPRAZOLE SOLUTAB 30 MG TAB NG SCH (09:16)
[2017-05-22] MEDS: METOPROLOL TARTRATE 50 MG TAB PO SCH ×2 (09:16→21:55)
[2017-05-22] MEDS: MULTIVITAMINS/MINERALS THERAPEUTIC TAB PO SCH ×2 (09:16→21:55)
[2017-05-22] MEDS: CALCITRIOL 0.25 MCG CAP PO SCH (09:16)
[2017-05-22] MEDS: CHLORHEXIDINE 0.12% (ORAL KIT) 15 ML CUP MT SCH ×2 (09:53→21:55)
[2017-05-22] MEDS: SODIUM CHLORIDE 0.9% FLUSH 10 ML FLUSH IV FLUSH SCH ×2 (09:53→21:56)
--- NOTE | 2017-05-22 10:11 | HHI.CCPN ---
Subjective Remarks/Hospital Course The patient is an 82 year old female past with past medical history significant for hypertension, atrial fibrillation, diabetes mellitus, obesity, hypothyroidism, hyperlipidemia, diabetic neuropathy, who was seen in ED 3 days ago bronchospasm. She has COPD/Asthma and restrictive lung disease related to her obesity. Patient was treated for reactive airway disease, given breathing treatments and was discharged on as needed inhalers. Patient was brought in today by her as she was having shortness of breath and on the way to the ED when she slumped over in the car. In the emergency department she showed agonal breathing, she was intubated for airway protection emergently. Patient was given Solu-Medrol and breathing treatments and was placed on the mechanical ventilation. Chest x-ray showed bilateral infiltrates concerning for pneumonia. CT of the head was negative. I evaluated the patient in the ICU. She is on minimal sedation and mild attempts to wake up and intermittently tries to follows commands. She still on high oxygen requirement FiO2 is 60% with a PEEP of 5. I have increased the PEEP to 10. I have started the patient on scheduled IV Solu-Medrol, DuoNeb breathing treatments, cefepime and azithromycin for probable pneumonia. 04/20 Remains intubated, off sedation following commands. Currently FiO2 had been weaned to 40%. Urine output 950 ml since admission. Start SBT, Bumex 1 mg IV x1. 04/21: Tolerating CPAP better today, Appears calm following commands. UO adequate, though creat increasing. Cultures remain negative 04/22: Extubated yesterday required BiPAP overnight. Currently on nasal cannula slightly tachypneic but able to talk in full sentences maintaining oxygen saturation 04/23: Breathing more comfortably today on nasal cannula. Daughter At the bedside. Urine output adequate, creatinine has slightly improved 05/05: Rapid response team was called due to patient's altered mental status and hypoxemia. She was immediately transferred to ICU with a blood gas showing severe hypercarbic acidosis and was immediately intubated. She also became slightly hypotensive requiring a central line placement and initiation of vasopressor therapy 05/06: Awake and alert but not following commands. Nods head but inappropriately to questions. CAM ICU positive. Sedation is currently been held. Off norepinephrine. Currently nothing by mouth. 05/07: Tmax 100.4 Patient awake following commands. Sedation off a greater than 24-hour. Discussion of CODE STATUS with patient and daughter, patient states she requests to be full code explanation provided in detail. CODE STATUS changed to full code. Sputum cultures pending. Empiric antibiotics initiated Levaquin and cefepime. Patient continues on CPAP trials. The patient lasted 13 hours yesterday on CPAP. Plan for Vas-Cath placement by interventional radiology scheduled for 05/10. 05/08: Patient continues on CPAP trials, alert and responsive, denies pain. Plan for obtaining SBT parameters today a successful will extubate. Sputum culture revealed initial preliminary results of budding yeasts, micafungin added to medication regimen. Patient's scheduled by IR placement of Vas-Cath in a.m.. Patient continues on Reglan and nothing by mouth status per GI, large amounts of diarrhea/loose stools, plan for KUB this afternoon. 05/09: Tmax 99.0. The patient tolerated CPAP trials continuation overnight, approximately 24 hours. SBT performed last evening,WNL. Patient remains awake , alert and interactive. The patient is scheduled for permacath placement via IR this a.m. to be followed by dialysis. Plan for SBT trial postdialysis with a trial of extubation. Throughout the night the patient became tachycardic, with systolic blood pressure greater than 160s. Metoprolol resumed. Patient complained of throat pain early this a.m. relieved with Tylenol. GI following, obtained repeat KUB yesterday we'll await recommendations. Plan to discontinue IV fluids and initiate PPN. 05/10: Afebrile. Patient underwent IHD with 3 L fluid removal yesterday. Plan for permacath placement today. Patient noted to be continued hypertensive, Cardizem home medication resumed. Patient underwent SBT trials postdialysis yesterday with subsequent failure unable to extubate. Plan for repeat SBT parameters today, with anticipation of possible extubation. 05/11: Remains orally intubated on mechanical ventilation. EGD unremarkable 05/12: Remains orally intubated on mechanical ventilation. Had chest pain yesterday with EKG changes in the lateral leads. Troponin borderline 0.51. Hemoglobin 6.6 for which 2 units PRBCs were transfused yesterday. Patient was noted to have rectal bleeding this morning for which GI was notified. 05/13: Hemoglobin 5.7. Patient to receive 3 units packed red blood cells with dialysis today. Last evening the patient continued into A. fib heart rate in the 130s received 1 dose of 0.5 mg of morphine, for chest pain during the night , PRN Beta Blockers. Continues with Nitropaste. Patient denies abdominal pain. Tentative plan for colonoscopy tomorrow with Dr. Hernández. 05/14: Tmax 100.2. Patient received GoLYTELY in for scheduled colonoscopy today. Patient had 2 L stool output overnight, maroon-colored. Repeat hemoglobin performed stable 9.5. A. fib now rate controlled. Patient was noted to have hematuria during the night, heparin SQ prophylaxis was discontinued yesterday secondary to bleeding however the patient receives heparin during the dialysis. Fibrinogen and HIT panel labs pending. Reconsulted colorectal surgery, initial consult placed 05/01/[address] Tam. Patient denies abdominal pain. 05/15 Colonscopy yesterday with large internal hemorrhoids, large amount of stool in colon. Dignishield removed after colonscopy and no BM since. Patient denies abdominal pain. CPAP today and tolerates 15/5 but RSBI in 120s when pressure support lowered. Discussed with patient and daughter at bedside and they are anticipating trach and agreeable to proceed. Afib with occasional RVR 05/16: hgb stable. plan for trach today. 05/17: s/p trach and peg yesterday. on SBT today. fails for tachypnea and low tidal volumes. otherwise no changes. no improvements. will need long-term acute care facility for vent weaning 05/18: continues to fail daily SBT trials for tachypnea and elevated RSBI. very weak. hypophosphatemia being actively replaced. awaiting placement. 05/19: failed additional SBT weaning attempts again today for tachypnea, became tachycardic and hypertensive. subjectively stated she felt fatigued and tired. placed back on full support. 05/20: Better on SBTs today using 15/8 to start. Looks around, tracks. Sitting up in chair. 05/21: phos still low despite replacement. will continue to replace. still subjectively and objectively still weak, requiring high amounts of support to tolerate any PSV mode, and failing quickly on SBT trials. Subjective 05/22: phos improved after replacement. still fails SBT despite attempts at weaning. needs aggressive pulmonary rehab. Objective Vital Signs Date Time Temp Pulse Resp B/P (MAP) Pulse Ox O2 Delivery O2 Flow Rate FiO2 05/22/17 08:54 97 Ventilator 30 05/22/17 06:00 96 05/22/17 04:00 98.2 18 136/60 (85) 05/20/17 19:00 6.00 Intake and Output 05/22/17 05/22/17 05/23/17 08:00 16:00 00:00 Intake Total 761 ml Output Total 0 ml Balance 761 ml Result Diagram: 05/22/17 0505 05/22/17 0505 Imaging Last Impressions Chest X-Ray 05/08/17 0600 Signed Impressions: Service Date/Time: Monday, May 08, 2017 03:23 - CONCLUSION: 1. Cardiomegaly and findings of vascular congestion without overt failure. There has been no significant change when compared to the prior exam. Brian Mcmanus MD Abdomen X-Ray 05/08/17 0000 Signed Impressions: Service Date/Time: Monday, May 08, 2017 15:33 - CONCLUSION: Persistent mild dilatation of the ascending colon and transverse colon. Findings favor ileus. There are no findings to indicate small bowel obstruction. When correlating with prior CT it is felt unlikely to represent any colonic obstruction. Duncan Avery MD Enema w/Water Soluble 05/02/17 0000 Signed Impressions: Service Date/Time: Tuesday, May 02, 2017 08:02 - CONCLUSION: 1. Limited suboptimal exam. The cecum and right colon could not be opacified despite repeated attempts. 2. Residual stool and mild to moderate diverticulosis. Guevara Crowell MD Abdomen/Pelvis CT 05/02/17 0000 Signed Impressions: Service Date/Time: Tuesday, May 02, 2017 19:58 - CONCLUSION: 1. Nonspecific bowel gas pattern remains with contrast noted in the colon from the recent Gastrografin enema. The cecum remains distended. A rectal catheter is present. 2. No free air or fluid. 3. Small pleural effusions with mild consolidation in the lung bases. 4. Stable small adrenal masses likely representing adenomas. 5. Small nonobstructing left renal calculus. Guevara Crowell MD Catheter Placement X-Ray 05/01/17 0000 Signed Impressions: Service Date/Time: Monday, May 01, 2017 11:45 - CONCLUSION: Uncomplicated line placement as above. Brian Mcmanus MD Renal Ultrasound 04/20/17 0000 Signed Impressions: Service Date/Time: April 15:07 - CONCLUSION: 1. There is no hydronephrosis. 2. Stable 8mm nonobstructing left renal stone. Duncan Avery MD Head CT 04/19/17 0702 Signed Impressions: Service Date/Time: Wednesday, April 19, 2017 07:29 - CONCLUSION: 1. Cerebral white matter hypodensity characteristic of chronic microvascular ischemic disease. 2. No evidence of acute infarct, hemorrhage, mass or edema. Renato Coughlin MD Last Impressions Chest X-Ray 05/06/17 0000 Signed Impressions: Service Date/Time: Saturday, May 06, 2017 03:22 - CONCLUSION: Left IJ central venous catheter courses superiorly in the region of the SVC with the tip in the region of distal right internal jugular vein or right brachiocephalic vein. This could be retracted 5 cm. No evidence of pneumothorax. Hussain Green MD Abdomen X-Ray 05/04/17 0600 Signed Impressions: Service Date/Time: May 06:03 - CONCLUSION: Contrast through to the rectum. Basically stable dilatation of the proximal colon Duncan Delgado MD Enema w/Water Soluble 05/02/17 0000 Signed Impressions: Service Date/Time: Tuesday, May 02, 2017 08:02 - CONCLUSION: 1. Limited suboptimal exam. The cecum and right colon could not be opacified despite repeated attempts. 2. Residual stool and mild to moderate diverticulosis. Guevara Crowell MD Abdomen/Pelvis CT 05/02/17 0000 Signed Impressions: Service Date/Time: Tuesday, May 02, 2017 19:58 - CONCLUSION: 1. Nonspecific bowel gas pattern remains with contrast noted in the colon from the recent Gastrografin enema. The cecum remains distended. A rectal catheter is present. 2. No free air or fluid. 3. Small pleural effusions with mild consolidation in the lung bases. 4. Stable small adrenal masses likely representing adenomas. 5. Small nonobstructing left renal calculus. Guevara Crowell MD Catheter Placement X-Ray 05/01/17 0000 Signed Impressions: Service Date/Time: Monday, May 01, 2017 11:45 - CONCLUSION: Uncomplicated line placement as above. Brian Mcmanus MD Renal Ultrasound 04/20/17 0000 Signed Impressions: Service Date/Time: April 15:07 - CONCLUSION: 1. There is no hydronephrosis. 2. Stable 8mm nonobstructing left renal stone. Duncan Avery MD Head CT 04/19/17 0702 Signed Impressions: Service Date/Time: Wednesday, April 19, 2017 07:29 - CONCLUSION: 1. Cerebral white matter hypodensity characteristic of chronic microvascular ischemic disease. 2. No evidence of acute infarct, hemorrhage, mass or edema. Renato Coughlin MD Objective Remarks GENERAL: 82-year-old female, sitting up in chair. SKIN: Warm and dry. HEAD: Atraumatic. Normocephalic. EYES: Pupils equal and round. No scleral icterus. No injection or drainage. ENT: No nasal bleeding or discharge. Mucous membranes pink and moist. NECK: Trachea midline. No JVD. trach in place, site clean. CARDIOVASCULAR: Irregularly irregular, afib on the monitor RESPIRATORY: No accessory muscle use. Breath sounds equal bilaterally. GASTROINTESTINAL: Abdomen obese, soft, nontender. PEG in place. MUSCULOSKELETAL: Extremities without clubbing, cyanosis. 1+ edema all extremities, anasarca. VASC: Right subclavian permacath in place with dressing clean/dry/intact. NEUROLOGICAL: Awake and alert, makes eye contact and nods appropriately. Communicates in writing. No obvious cranial nerve deficits. Moves all 4 extremities spontaneously. Procedures 05/10 - IR for permacath 05/11 EGD A/P Assessment and Plan NEURO/PSYCH: Acute metabolic encephalopathy-resolved - Goal RASS 0 - CT of the head negative for acute findings -Gabapentin 100 twice a day has been on hold. - Morphine when necessary pain (held) receiving only as needed dosing, while continuing CPAP - Tylenol 650 mg every 6 hours when necessary for pain RESP: Acute hypoxemic respiratory failure - persistent. subacute. Pneumonia COPD with exacerbation Restrictive lung disease Failure to wean - Extubated 04/21. Reintubated 05/05. - failing SBTs daily for RSBI > 100, tachypnea, RR > 35, tidal volumes < 250cc. continue daily trials. - s/p trach 05/[address] Mathews/Brandon. Ventilator bundle -DuoNebs CV: Chronic A. fib- rate controlled Hypertension Chest pain- resolved - diltiazem 90 mg q6 , continue metoprolol 50 mg twice a day. 05/07- digoxin level 1.3 . Digoxin has been on hold in view of ESRD but may need to resume if RVR persists. better controlled today. -Holding Apixaban currently due to anemia, GI bleeding. - PPN @ 42cc/hr started on 05/10 - On atorvastatin 20 mg daily for dyslipidemia. - ASA on hold due to GI bleeding. - Dr. Cuevas evaluated 05/12 due to chest pain and recommended conservative management. Signed off. -2-D echo ild concentric LVH.EF 60-65%. -Lisinopril patient's home med has been discontinued in the setting of CKD. FEN/GI: Colonic ileus Melena GI Bleed Hypophosphatemia Gastrografin enema 05/02. Proximal colonic dilatation. Patient is having bowel movements. No abdominal pain Famotidine for GI prophylaxis 05/11 EGD - normal esophagus, normal stomach, normal duodenal mucosa to the second portion 05/08 repeat KUB-mildly dilated ascending and transverse colon. Distention unchanged, but transverse colon distally more dilated 05/09 PPN 42cc/hr, and lipids Colonoscopy 05/[address] Hernández - large internal hemorrhoids felt to be source of bleeding.. Diverticulum in the sigmoid colon. Significant amount of stool within the colon. Recommended repeat colonoscopy in 6 months. Colorectal surgery initially consulted 05/01/17, Dr. Tam. full tube feeds. off PPN continue aggressive phos replacement. RENAL: Acute on chronic kidney disease Secondary hyperparathyroidism Hematuria - IHD Monday/ and Monday per Nephrology -Dr. Grewal - R subclavian permacath 05/10/17 - Continue Calciferol 0.25 mcg daily for secondary hyperparathyroidism ID: Severe sepsis, resolved Pneumonia, resolved - Blood sputum and urine culture, all negative to date - s/p Cefepime and Levaqin. watch off antibiotics (Dr. Miesha Dias). No leukocytosis. Panculture if recurrent fever. -Was on micafungin 05/08-05/14 -pro-calcitonin elevation may be secondary to renal failure. HEME: Leukocytosis-resolved Normocytic anemia Acute blood loss anemia Thrombocytopenia Superficial thrombophlebitis, right cephalic vein. - 05/14 U/s BUE - Occlusive thrombus right cephalic vein. Neg LUE. -Holding apixaban -05/13 Transfuse 3 units packed red blood cells with dialysis, 05/12 patient received 1 unit PRBC -daily cbc. - HIT Ab negative and fibrinogen normal 05/14 - despite occlusive thrombus, recent GI bleeding makes her high risk for anticoagulation. risk/benefit is in favor of holding anticoagulation. ENDO: Hypothyroidism Type 2 diabetes - Continue levothyroxine at 125 g daily - Continue insulin detemir 10 units twice a day, medium dose sliding scale q 6 hours with glucose at target MSK: OA/OP Critical illness polyneuropathy Continue cholecalciferol 400 units twice a day PT evaluate and treat PT requested functional maintenance daily PROPH: - Bilateral lower extremity SCDs, heparin SQ placed on hold 05/13 due to acute blood loss anemia. LINES: -PIV LUE. Right subclavian permacath 05/10/1705/07: Discussed with Vitaliy Sales and daughter. Full CODE STATUS. All family members acknowledge understanding and present in room during discussion. CODE STATUS will be changed. Palliative care consulted as well for goals of care. 05/08: Palliative of care meeting, patient instituted daughter as primary POA. 05/13: Extensive discussion with POA's son and daughter, and regarding need for blood transfusion, plan for colonoscopy tomorrow. Post colonoscopy, will attempt CPAP and SBT parameters,if unsuccessful, tentative plan for tracheostomy scheduled for Wednesday 05/16 Overall Impression: Very slow progress. Continue to attempt daily SBTs and weaning, but strength is an issue and will take a large amount of pulmonary rehab to regain enough function. needs placement in LTAC at this point. Quan Mathews MD May 22, 2017 10:11
--- NOTE | 2017-05-22 10:51 | HHI.NPPN ---
Subjective History of Present Illness Patient is a 82-year-old with sepsis, COPD, intubation, diabetes, acute renal failure and chronic kidney disease. Additional Remarks Patient sitting up in cardiac chair Objective Data Data Vital Signs Date Time Temp Pulse Resp B/P (MAP) Pulse Ox O2 Delivery O2 Flow Rate FiO2 05/22/17 08:54 97 Ventilator 30 05/22/17 08:54 30 05/22/17 08:54 94 30 05/22/17 06:00 96 05/22/17 04:03 96 30 05/22/17 04:00 96 05/22/17 04:00 98.2 96 18 136/60 (85) 98 05/22/17 04:00 30 05/22/17 02:00 96 05/22/17 00:32 96 30 05/22/17 00:00 30 05/22/17 00:00 96 05/22/17 00:00 98.5 96 18 127/60 (82) 98 05/21/17 22:00 98 05/21/17 21:15 30 05/21/17 21:15 Mechanical Ventilator 30 05/21/17 21:14 99 30 05/21/17 20:00 98.8 101 32 158/69 (98) 100 05/21/17 20:00 101 05/21/17 20:00 30 05/21/17 19:00 Mechanical Ventilator 30 05/21/17 16:00 99 05/21/17 16:00 98.3 99 28 141/64 (89) 96 05/21/17 15:21 97 30 05/21/17 12:00 98.8 97 22 97/51 (66) 98 05/21/17 12:00 97 05/21/17 11:46 95 40 -: 05/22/17 0505 05/22/17 0505 Physical Exam General Appearance: No Acute Distress, Comfortable, Obese Neck Neck Exam: Neck Supple Pulmonary Resp Exam: Decreased Bases Cardiology CV Exam: Arrhythmia Gastrointestinal/Abdomen GI Exam: Bowel Sounds Hypoactive Extremeties Extremities Exam: Trace Edema Neurologic Neuro Exam: Alert, Awake Psychiatric Psych Exam: Appropriate Responses Assessment/Plan Problem List: (1) Acute on chronic renal insufficiency ICD Codes: N28.9 - Disorder of kidney and ureter, unspecified; N18.9 - Chronic kidney disease, unspecified Status: Acute Plan: Patient is in acute renal failure and had chronic kidney disease ESRD with no recovery May try to wean off vent but if unsuccessful then may need to consider [facility] for Rehab Eliquis on hold Hemodialysis TTS HD Monday and Monday - holiday schedule this week Trach O2 and wean off Vent G tube/Trach no obvious source of bleed GI Bleed GI following Phosphorus being replaced - continue to monitor K runs low, continue to monitor and adjust K with HD Monday. (2) Hypertension ICD Codes: I10 - Hypertension Status: Acute Plan: BP stable (3) Diabetes ICD Codes: E11.9 - Type 2 diabetes mellitus without complications Status: Acute Plan: Continue to monitor (4) COPD with acute exacerbation ICD Codes: J44.1 - Chronic obstructive pulmonary disease with (acute) exacerbation Plan: With trach - UF as tolerated with HD Problem Qualifiers (1) Diabetes: Tonja Grewal MD May 22, 2017 10:51
[2017-05-22] MEDS: HEPARIN SODIUM - IV 10,000 UNITS/10 ML VIAL PRN (13:31)
[2017-05-22] MEDS: GENTAMICIN SULFATE (DIALYSIS USE ONLY) 20 MG/2 ML VIAL OTHER PRN (13:31)
[2017-05-22] MEDS: EPOETIN ALFA 10,000 UNITS/ML VIAL IV PUSH PRN (13:32)
--- NOTE | 2017-05-22 14:16 | HHI.HCPN ---
Reason for visit a. To assist with evaluation and management of symptoms including: Debility , pain, dyspnea b. To assist medical decision maker(s) with: better understanding of current medical conditions; weighing benefits/burdens of medical treatment options; making medical treatment decisions. . (Yulissa Barraza) Subjective/Interval History Pt seen today to follow up on comfort, goals. Patient seen in ICU status post tracheostomy and PEG tube placement on 2016, tolerating CPAP trials this morning. Eyes closed and face is relaxed. Patient arouses easily to to verbal stimuli. She not/takes her head appropriately and is able to communicate in writing. No recent imaging is available. She again acknowledges aggressive goals, hopeful she able to go to rehabilitation soon. Denies pain. Status post colonoscopy on 05/14/2017; revealed diverticulum, large internal hemorrhoids which was felt to be the source of bleeding, and large amount of stool. No further signs of active bleeding. Tolerating artificial nutrition, Nepro at 40 mL's per hour Gastroenterology has signed off. WBC: 18.1, hemoglobin 8.5, hematocrit 25.6, platelets 160 Sodium: 135, potassium 3.7, chloride 98, carbon dioxide 26.7, glucose 149, calcium 8.3, phosphorus 4.3 BUN: 46, creatinine 5.21, GFR 10 Plan to continue trying to improve/restore patient and get her to rehabilitation. Goals remain aggressive. Patient is making very slow progress; strength is an issue and it will take significant pulmonary rehabilitation to regain function. Possible transfer to [facility] in the coming days. . (Yulissa Barraza) Advance Directives Living Will: Never completed Health Care Surrogate: Copy in medical record Durable Power of Cabinet Mounter: Never completed (Yulissa Barraza) Advance Directive Specifics Date completed: 05/08/2017 . Health Care Surrogate(s): Health care surrogate form completed 05/08/2017 designating the patient's daughter (Shilpa) as the healthcare surrogate decision maker. The patient's son (Jason) is the alternate health care surrogate decision maker. Documented care wishes: Healthcare surrogate form was completed 05/08/2017. No other documented care wishes have been completed. Plan to discuss written advanced directives/living will after the patient has been extubated in the upcoming days. . (Yulissa Barraza) Objective Vital Signs Date Time Temp Pulse Resp B/P (MAP) Pulse Ox O2 Delivery O2 Flow Rate FiO2 05/22/17 11:33 96 30 05/22/17 10:00 96 05/22/17 08:54 97 Ventilator 30 05/22/17 08:54 30 05/22/17 08:54 94 30 05/22/17 08:00 98.4 96 13 165/65 (98) 99 05/22/17 08:00 96 05/22/17 08:00 30 05/22/17 07:00 Mechanical Ventilator 30 05/22/17 06:00 96 05/22/17 04:03 96 30 05/22/17 04:00 96 05/22/17 04:00 98.2 96 18 136/60 (85) 98 05/22/17 04:00 30 05/22/17 02:00 96 05/22/17 00:32 96 30 05/22/17 00:00 30 05/22/17 00:00 96 05/22/17 00:00 98.5 96 18 127/60 (82) 98 05/21/17 22:00 98 05/21/17 21:15 30 05/21/17 21:15 Mechanical Ventilator 30 05/21/17 21:14 99 30 05/21/17 20:00 98.8 101 32 158/69 (98) 100 05/21/17 20:00 101 05/21/17 20:00 30 05/21/17 19:00 Mechanical Ventilator 30 05/21/17 16:00 99 05/21/17 16:00 98.3 99 28 141/64 (89) 96 05/21/17 15:21 97 30 Intake & Output 05/22/17 05/22/17 06:59 18:59 Intake Total 761 ml Output Total 0 ml 0 ml Balance 761 ml 0 ml Tube Feeding 521 ml Other 240 ml Output Urine Total 0 ml Tube Feeding Residual Discard 0 ml 0 ml Bladder Scan Volume Amount 85 ml 30 ml # Voids 0 # Bowel Movements 0 Physical Exam CONSTITUTIONAL/GENERAL: This is an elderly female status post tracheostomy, tolerating CPAP on exam TUBES/LINES/DRAINS: PEG, trach, Nelson catheter, permacath, PIV 2 SKIN: Skin temperature appropriate. Not diaphoretic. NECK: S/p tracheostomy CARDIOVASCULAR: Irregular rate and rhythm. Atrial fibrillation on monitor. RESPIRATORY/CHEST: Status post tracheostomy, tolerating CPAP on exam. No accessory muscle usage. GASTROINTESTINAL: Obese, Abdomen soft, non-tender, nondistended. Active bowel sounds present. Tolerating artificial nutrition via PEG at 40 mL's per hour GENITOURINARY: Without palpable bladder distension. Nelson catheter in place. NEUROLOGICAL: Lethargic. Arouses briefly to verbal stimuli. Able to nod/shake head appropriately; able to communicate by writing PSYCHIATRIC: No obvious anxiety/depression. no apparent hallucinations or other psychotic thought process. . . (Yulissa Barraza) Diagnostic Tests Laboratory Laboratory Tests Test 05/20/17 04:57 05/21/17 05:40 05/21/17 20:30 05/22/17 05:05 White Blood Count 16.5 TH/MM3 (4.0-11.0) 20.0 TH/MM3 (4.0-11.0) 18.1 TH/MM3 (4.0-11.0) Red Blood Count 2.70 MIL/MM3 (4.00-5.30) 2.87 MIL/MM3 (4.00-5.30) 2.82 MIL/MM3 (4.00-5.30) Hemoglobin 8.1 GM/DL (11.6-15.3) 8.3 GM/DL (11.6-15.3) 8.5 GM/DL (11.6-15.3) Hematocrit 24.2 % (35.0-46.0) 25.6 % (35.0-46.0) 25.6 % (35.0-46.0) Mean Corpuscular Volume 89.6 FL (80.0-100.0) 89.3 FL (80.0-100.0) 90.9 FL (80.0-100.0) Mean Corpuscular Hemoglobin 29.9 PG (27.0-34.0) 29.1 PG (27.0-34.0) 30.2 PG (27.0-34.0) Mean Corpuscular Hemoglobin Concent 33.3 % (32.0-36.0) 32.5 % (32.0-36.0) 33.3 % (32.0-36.0) Red Cell Distribution Width 17.1 % (11.6-17.2) 17.0 % (11.6-17.2) 17.2 % (11.6-17.2) Platelet Count 159 TH/MM3 (150-450) 170 TH/MM3 (150-450) 160 TH/MM3 (150-450) Mean Platelet Volume 9.8 FL (7.0-11.0) 9.4 FL (7.0-11.0) 9.4 FL (7.0-11.0) Blood Urea Nitrogen 48 MG/DL (7-18) 38 MG/DL (7-18) 46 MG/DL (7-18) Creatinine 5.41 MG/DL (0.50-1.00) 4.40 MG/DL (0.50-1.00) 5.21 MG/DL (0.50-1.00) Random Glucose 159 MG/DL (74-106) 164 MG/DL (74-106) 149 MG/DL (74-106) Calcium Level 8.1 MG/DL (8.5-10.1) 8.3 MG/DL (8.5-10.1) 8.3 MG/DL (8.5-10.1) Phosphorus Level 3.1 MG/DL (2.5-4.9) 1.3 MG/DL (2.5-4.9) 5.5 MG/DL (2.5-4.9) 4.3 MG/DL (2.5-4.9) Sodium Level 135 MEQ/L (136-145) 137 MEQ/L (136-145) 135 MEQ/L (136-145) Potassium Level 3.1 MEQ/L (3.5-5.1) 3.1 MEQ/L (3.5-5.1) 3.7 MEQ/L (3.5-5.1) Chloride Level 98 MEQ/L (98-107) 99 MEQ/L (98-107) 98 MEQ/L (98-107) Carbon Dioxide Level 27.5 MEQ/L (21.0-32.0) 28.5 MEQ/L (21.0-32.0) 26.7 MEQ/L (21.0-32.0) Anion Gap 10 MEQ/L (5-15) 10 MEQ/L (5-15) 10 MEQ/L (5-15) Estimat Glomerular Filtration Rate 9 ML/MIN (>89) 12 ML/MIN (>89) 10 ML/MIN (>89) . (Yulissa Barraza) Result Diagram: 05/22/17 0505 05/22/17 0505 Procedures 04/19/17: Intubation 04/19/17: OGT placement 04/21/17: Extubation 05/01/17: NGT placed. 05/05/17: Reintubation; Left IJ central line placement 05/10/2017: PermCath placement 05/16/2017: Tracheostomy and PEG tube placement . (Yulissa Barraza) Assessment and Plan Disease Oriented Problem List: (1) Hypothyroidism (2) Hyperlipidemia (3) Diabetes (4) Pneumonia (5) Atrial fibrillation (6) Acute on chronic kidney failure (7) COPD with acute exacerbation (8) Acute metabolic encephalopathy (9) Peripheral neuropathy (10) History of small bowel obstruction (11) History of thyroid cancer (12) Rectal bleeding Symptom Scale: (1) Debility 0-10 Scale: Unable to quantify (bedbound status, restrained.) (2) Dyspnea 0-10 Scale: Unable to quantify (failing vent trials. Third intubation this admission.) (3) Pain 0-10 Scale: Unable to quantify (generalized discomfort, invasive lines, restraints, bedbound.) Pertinent Non-Medical Issues Psychosocial: Patient is originally from [place]. She had 3 children. Daughter (Shilpa) lives in [place], [place] and son (Jason) lives in [place], [place]. Patient had another daughter who from breast cancer. Patient was remarried after her ; she is currently to her second (Vitaliy). 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 She has 25 grandchildren/great- grandchildren. Spiritual: Religion messi Legal:Health care surrogate form completed 05/08/2017 designating the patient's daughter (Shilpa) as the healthcare surrogate decision maker. The patient's son (Jason) is the alternate health care surrogate decision maker. Ethical issues impacting care: No known ethical issues impacting care at this time. . Important Contacts Vitaliy Sales, spouse: [phone] or [phone] (cell) Shilpa Gonzales, daughter/HCS: [phone] Jason Sales, son/alternate HCS: [phone] . Prognosis Patient is an 82-year-old female who has been admitted 3 times in 2017 for management of respiratory failure/pneumonia. She has required intubation/ mechanical ventilation x 2 since her admission on 04/19/2017. Given patient's complex medical history with recurrent hospitalizations, advanced age and recent decline in functional status, she is high risk for ongoing setbacks and complications. . Code Status: Full Code Plan * Legal decision maker: Her daughter, Shilpa, has been designated as the healthcare surrogate and her son, Jason, is the alternate healthcare surrogate * Goals: Patient able to nod/shake head appropriately and communicate in writing. Expressing ongoing aggressive goals and wishes to continue with all recommended diagnostic testing/treatments to support the patient while she gets stronger. Plan for rehab, hoping to return to her home in the future. * Discussed with bedside nurse and Viji (case management). * FULL CODE. * SYMPTOMS: * Dyspnea: Having difficulty weaning status post tracheostomy 05/16/2017; tolerating CPAP trials this morning. Patient will need to be transferred to LTAC vent for weaning. * Pain: She denies pain at this time and is receiving no pain medication. Likely sources of pain would be bedbound status, invasive lines, intubation, restraints. * Debility: Previously independent with all ADLs, residing at home her . She used a cane or walker for ambulation. She is expected to require rehabilitation after prolonged hospitalization. She has been accepted at [facility] and rehabilitation, as well as [facility] for dialysis-- however this may change as she may need LTAC for vent weaning. She has had Hemoccult positive stool and has required transfusions for anemia which is likely contributing to her debility, weakness and fatigue. * Palliative care will continue to follow the patient during hospital course as condition evolves, to assist patient/decision-maker with understanding of their medical conditions, weighing benefits/burdens of treatment options, for clarification of goals of treatment. Additionally will assist with any symptoms of palliative concern. . (Yulissa Barraza) Attestation To help prompt me to consider important information that might be impacting today's encounter and assessment, information from prior notes written by myself or my colleagues may have been "brought forward" into today's note. My signature on this note, however, is an attestation that I personally performed the exam, history, and/or decision-making noted today, and, unless otherwise indicated, the interactions with patient, family, and staff as well as the review of records all occurred today. I also attest that the listed assessment and stated plan reflect my best clinical judgment today based on the combination of historical information, prior notes, and today's exam/ interactions. When time spent is documented, it refers only to time spent today by the signer, or if indicated, combined time spent today by collaborating physician/nurse practitioner. . (Yulissa Barraza) Collaborating MD Comments Discussed with STEVE, agree with assessment and plan (Ramses Berger MD) Yulissa Barraza May 22, 2017 14:16 Ramses Berger MD May 23, 2017 09:57
[2017-05-22] MEDS: REMOVE OLD PATCH T-DERMAL SCH (21:00)
[2017-05-22] MEDS: ATORVASTATIN 20 MG TAB PO SCH (21:56)
[2017-05-23] VITALS (10 sets, daily range): BP systolic 127–140; BP diastolic 63–64; PULSE 92–100; RESP 16–18; TEMP 98.7–99; O2SAT 96–100
[2017-05-23] MEDS: diphenhydrAMINE HCL 25 MG CAP PO PRN (00:33)
[2017-05-23] MEDS: CHLORHEXIDINE GLUCONATE 2 % 1 PACK (2 CLOTHS) TOP SCH (03:56)
[2017-05-23 04:12] LABS: HEMATOCRIT 27.1 % (35.0-46.0); MEAN CELL VOLUME 91.8 FL (80.0-100.0); MEAN CORPUSCULAR HEMOGLOBIN 29.2 PG (27.0-34.0); MEAN CORPUSCULAR HGB CONC 31.8 % (32.0-36.0); PLATELET COUNT 156 TH/MM3 (150-450); RED BLOOD COUNT 2.96 MIL/MM3 (4.00-5.30); RED CELL DISTRIBUTION WIDTH 17.5 % (11.6-17.2); REVIEW FLAG FINAL; WHITE BLOOD COUNT 15.4 TH/MM3 (4.0-11.0)
[2017-05-23 04:43] LABS: BICARBONATE 29.1 MEQ/L (21.0-32.0); POTASSIUM 3.5 MEQ/L (3.5-5.1)
[2017-05-23] MEDS: LEVOTHYROXINE SODIUM 125 MCG TAB PO SCH (05:54)
[2017-05-23] MEDS: DILTIAZEM HCL 90 MG TAB PO SCH ×2 (05:54→10:48)
[2017-05-23] MEDS: INSULIN ASPART SUPPLEMENTAL SCALE SQ SCH ×2 (05:55→12:44)
[2017-05-23] MEDS: ARTIFICIAL TEARS OPTH SOLN 15 ML BTL EACH EYE SCH ×2 (05:56→12:44)
[2017-05-23] MEDS: CHLORHEXIDINE 0.12% (ORAL KIT) 15 ML CUP MT SCH (08:26)
[2017-05-23] MEDS: NITROGLYCERIN 0.2 MG/HR PATCH T-DERMAL SCH (09:54)
[2017-05-23] MEDS: INSULIN DETEMIR 100 UNITS/ML VIAL SQ SCH (09:54)
[2017-05-23] MEDS: CALCITRIOL 0.25 MCG CAP PO SCH (09:54)
[2017-05-23] MEDS: METOPROLOL TARTRATE 50 MG TAB PO SCH (09:55)
[2017-05-23] MEDS: CHOLECALCIFEROL (VIT D3) 400 UNIT TAB PO SCH (09:55)
[2017-05-23] MEDS: LANSOPRAZOLE SOLUTAB 30 MG TAB NG SCH (09:55)
[2017-05-23] MEDS: LACTOBACILLUS ACIDOPHILUS TAB PO SCH ×2 (09:55→12:43)
[2017-05-23] MEDS: SODIUM CHLORIDE 0.9% FLUSH 10 ML FLUSH IV FLUSH SCH (09:56)
[2017-05-23] MEDS: MULTIVITAMINS/MINERALS THERAPEUTIC TAB PO SCH (10:21)
[2017-05-23] MEDS: ACETAMINOPHEN/HYDROcodone 325 MG/5 MG TAB PO PRN (10:48)
--- NOTE | 2017-05-23 16:46 | HHI.HCPN ---
Reason for visit a. To assist with evaluation and management of symptoms including: Debility , pain, dyspnea b. To assist medical decision maker(s) with: better understanding of current medical conditions; weighing benefits/burdens of medical treatment options; making medical treatment decisions. . Subjective/Interval History Pt seen today to follow up on comfort, goals. Patient seen in ICU status post tracheostomy and PEG tube placement on 2016, tolerating CPAP trials this morning. Patient arouses easily to to verbal stimuli. She continues to nod/shakes her head appropriately and is able to communicate in writing. Moving all extremities on command and with purpose. No recent imaging is available. Patient expressing ongoing aggressive goals. Patient showing acute distress, denies pain. Status post colonoscopy on 05/14/2017; revealed diverticulum, large internal hemorrhoids which was felt to be the source of bleeding, and large amount of stool. No further signs of active bleeding. Tolerating artificial nutrition, Nepro at 40 mL's per hour Gastroenterology has signed off. Patient has ESRD with no recovery, plan for HD on Monday and Monday this week. Nephrology following. Plan to continue trying to improve/restore patient and get her to rehabilitation. Goals remain aggressive. Patient is making very slow progress; strength is an issue and it will take significant pulmonary rehabilitation to regain function. She is anxious to be discharged; possible discharge to [facility] later today. . Advance Directives Living Will: Never completed Health Care Surrogate: Copy in medical record Durable Power of Lithographic Photographer: Never completed Advance Directive Specifics Date completed: 05/08/2017 . Health Care Surrogate(s): Health care surrogate form completed 05/08/2017 designating the patient's daughter (Shilpa) as the healthcare surrogate decision maker. The patient's son (Jason) is the alternate health care surrogate decision maker. Documented care wishes: Healthcare surrogate form was completed 05/08/2017. No other documented care wishes have been completed. Plan to discuss written advanced directives/living will after the patient has been extubated in the upcoming days. . Objective Vital Signs Date Time Temp Pulse Resp B/P (MAP) Pulse Ox O2 Delivery O2 Flow Rate FiO2 05/23/17 12:37 16 05/23/17 11:33 30 05/23/17 11:31 96 30 05/23/17 10:00 96 05/23/17 08:25 30 05/23/17 08:00 98 05/23/17 08:00 30 05/23/17 08:00 98.8 98 18 127/64 (85) 99 05/23/17 07:28 99 30 05/23/17 07:00 99 Mechanical Ventilator 30 05/23/17 06:00 98 05/23/17 04:00 92 05/23/17 04:00 30 05/23/17 04:00 98.7 92 18 140/63 (88) 100 05/23/17 03:34 99 30 05/23/17 02:00 98 05/23/17 00:00 100 05/23/17 00:00 99.0 100 18 140/63 (88) 100 05/23/17 00:00 30 05/22/17 23:45 99 30 05/22/17 22:00 100 05/22/17 20:15 100 30 05/22/17 20:00 98.9 100 18 152/72 (98) 98 05/22/17 20:00 30 05/22/17 20:00 100 05/22/17 19:00 100 Mechanical Ventilator 6.00 30 05/22/17 18:00 100 05/22/17 16:40 98 30 Intake & Output 05/23/17 05/23/17 07:00 19:00 Intake Total 812 ml Output Total 0 ml 0 ml Balance 812 ml 0 ml Tube Feeding 512 ml Other 300 ml Tube Feeding Residual Discard 0 ml 0 ml Bladder Scan Volume Amount 29 ml 30 ml # Bowel Movements 0 Physical Exam CONSTITUTIONAL/GENERAL: This is an elderly female status post tracheostomy, tolerating CPAP on exam TUBES/LINES/DRAINS: PEG, trach, Nelson catheter, permacath, PIV 2 SKIN: Skin temperature appropriate. Not diaphoretic. NECK: S/p tracheostomy CARDIOVASCULAR: Irregular rate and rhythm. Atrial fibrillation on monitor. RESPIRATORY/CHEST: Status post tracheostomy, tolerating CPAP on exam. No accessory muscle usage. GASTROINTESTINAL: Obese, Abdomen soft, non-tender, nondistended. Active bowel sounds present. Tolerating artificial nutrition via PEG at 40 mL's per hour GENITOURINARY: Without palpable bladder distension. Nelson catheter in place. NEUROLOGICAL: Arouses briefly to verbal stimuli. Able to nod/shake head appropriately; able to communicate by writing. Moves all extremities on command and PSYCHIATRIC: No obvious anxiety/depression. no apparent hallucinations or other psychotic thought process. . . Diagnostic Tests Laboratory Laboratory Tests Test 05/21/17 05:40 05/21/17 20:30 05/22/17 05:05 05/23/17 03:48 White Blood Count 20.0 TH/MM3 (4.0-11.0) 18.1 TH/MM3 (4.0-11.0) 15.4 TH/MM3 (4.0-11.0) Red Blood Count 2.87 MIL/MM3 (4.00-5.30) 2.82 MIL/MM3 (4.00-5.30) 2.96 MIL/MM3 (4.00-5.30) Hemoglobin 8.3 GM/DL (11.6-15.3) 8.5 GM/DL (11.6-15.3) 8.6 GM/DL (11.6-15.3) Hematocrit 25.6 % (35.0-46.0) 25.6 % (35.0-46.0) 27.1 % (35.0-46.0) Mean Corpuscular Volume 89.3 FL (80.0-100.0) 90.9 FL (80.0-100.0) 91.8 FL (80.0-100.0) Mean Corpuscular Hemoglobin 29.1 PG (27.0-34.0) 30.2 PG (27.0-34.0) 29.2 PG (27.0-34.0) Mean Corpuscular Hemoglobin Concent 32.5 % (32.0-36.0) 33.3 % (32.0-36.0) 31.8 % (32.0-36.0) Red Cell Distribution Width 17.0 % (11.6-17.2) 17.2 % (11.6-17.2) 17.5 % (11.6-17.2) Platelet Count 170 TH/MM3 (150-450) 160 TH/MM3 (150-450) 156 TH/MM3 (150-450) Mean Platelet Volume 9.4 FL (7.0-11.0) 9.4 FL (7.0-11.0) 9.0 FL (7.0-11.0) Blood Urea Nitrogen 38 MG/DL (7-18) 46 MG/DL (7-18) 36 MG/DL (7-18) Creatinine 4.40 MG/DL (0.50-1.00) 5.21 MG/DL (0.50-1.00) 4.34 MG/DL (0.50-1.00) Random Glucose 164 MG/DL (74-106) 149 MG/DL (74-106) 122 MG/DL (74-106) Calcium Level 8.3 MG/DL (8.5-10.1) 8.3 MG/DL (8.5-10.1) 8.3 MG/DL (8.5-10.1) Phosphorus Level 1.3 MG/DL (2.5-4.9) 5.5 MG/DL (2.5-4.9) 4.3 MG/DL (2.5-4.9) 2.8 MG/DL (2.5-4.9) Sodium Level 137 MEQ/L (136-145) 135 MEQ/L (136-145) 137 MEQ/L (136-145) Potassium Level 3.1 MEQ/L (3.5-5.1) 3.7 MEQ/L (3.5-5.1) 3.5 MEQ/L (3.5-5.1) Chloride Level 99 MEQ/L (98-107) 98 MEQ/L (98-107) 98 MEQ/L (98-107) Carbon Dioxide Level 28.5 MEQ/L (21.0-32.0) 26.7 MEQ/L (21.0-32.0) 29.1 MEQ/L (21.0-32.0) Anion Gap 10 MEQ/L (5-15) 10 MEQ/L (5-15) 10 MEQ/L (5-15) Estimat Glomerular Filtration Rate 12 ML/MIN (>89) 10 ML/MIN (>89) 12 ML/MIN (>89) Result Diagram: 05/23/17 0348 05/23/17 0348 Procedures 04/19/17: Intubation 04/19/17: OGT placement 04/21/17: Extubation 05/01/17: NGT placed. 05/05/17: Reintubation; Left IJ central line placement 05/10/2017: PermCath placement 05/16/2017: Tracheostomy and PEG tube placement . Assessment and Plan Disease Oriented Problem List: (1) Hypothyroidism (2) Hyperlipidemia (3) Diabetes (4) Pneumonia (5) Atrial fibrillation (6) Acute on chronic kidney failure (7) COPD with acute exacerbation (8) Acute metabolic encephalopathy (9) Peripheral neuropathy (10) History of small bowel obstruction (11) History of thyroid cancer (12) Rectal bleeding Symptom Scale: (1) Debility 0-10 Scale: Unable to quantify (bedbound status, restrained.) (2) Dyspnea 0-10 Scale: Unable to quantify (failing vent trials. Third intubation this admission.) (3) Pain 0-10 Scale: Unable to quantify (generalized discomfort, invasive lines, restraints, bedbound.) Pertinent Non-Medical Issues Psychosocial: Patient is originally from [place]. She had 3 children. Daughter (Shilpa) lives in [place], [place] and son (Jason) lives in [place], [place]. Patient had another daughter who from breast cancer. Patient was remarried after her ; she is currently to her second (Vitaliy). 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 She has 25 grandchildren/great- grandchildren. Spiritual: Taoism messi Legal:Health care surrogate form completed 05/08/2017 designating the patient's daughter (Shilpa) as the healthcare surrogate decision maker. The patient's son (Jason) is the alternate health care surrogate decision maker. Ethical issues impacting care: No known ethical issues impacting care at this time. . Important Contacts Vitaliy Sales, spouse: [phone] or [phone] (cell) Shilpa Gonzales daughter/[facility]: [phone] Jason Sales son/alternate HCS: [phone] . Prognosis Patient is an 82-year-old female who has been admitted 3 times in 2017 for management of respiratory failure/pneumonia. She has required intubation/ mechanical ventilation x 2 since her admission on 04/19/2017. Given patient's complex medical history with recurrent hospitalizations, advanced age and recent decline in functional status, she is high risk for ongoing setbacks and complications. . Code Status: Full Code Plan * Legal decision maker: Her daughter, Shilpa, has been designated as the healthcare surrogate and her son, Jason, is the alternate healthcare surrogate * Goals: Patient able to nod/shake head appropriately and communicate in writing. Expressing ongoing aggressive goals and wishes to continue with all recommended diagnostic testing/treatments to support the patient while she gets stronger. Plan for rehab, hoping to return to her home in the future. * FULL CODE. * SYMPTOMS: * Dyspnea: Having difficulty weaning status post tracheostomy 05/16/2017; tolerating CPAP trials this morning. Patient will need to be transferred to LTAC vent for weaning. * Pain: She denies pain at this time and is receiving no pain medication. Likely sources of pain would be bedbound status, invasive lines, intubation, restraints. * Debility: Previously independent with all ADLs, residing at home her . She used a cane or walker for ambulation. She is expected to require rehabilitation after prolonged hospitalization. She has been accepted at [facility] and rehabilitation, as well as [facility] for dialysis-- however this may change as she may need LTAC for vent weaning. She has had Hemoccult positive stool and has required transfusions for anemia which is likely contributing to her debility, weakness and fatigue. * Palliative care will continue to follow the patient during hospital course as condition evolves, to assist patient/decision-maker with understanding of their medical conditions, weighing benefits/burdens of treatment options, for clarification of goals of treatment. Additionally will assist with any symptoms of palliative concern. . Attestation To help prompt me to consider important information that might be impacting today's encounter and assessment, information from prior notes written by myself or my colleagues may have been "brought forward" into today's note. My signature on this note, however, is an attestation that I personally performed the exam, history, and/or decision-making noted today, and, unless otherwise indicated, the interactions with patient, family, and staff as well as the review of records all occurred today. I also attest that the listed assessment and stated plan reflect my best clinical judgment today based on the combination of historical information, prior notes, and today's exam/ interactions. When time spent is documented, it refers only to time spent today by the signer, or if indicated, combined time spent today by collaborating physician/nurse practitioner. . Yulissa Barraza May 23, 2017 16:46
== END 2017-05-23 13:14 | DRG 4 ==
LOC: NEPE 06:10 → NEDA 07:47 → HIMN 08:00 → HCIN 04-26 23:10 → N04B 05-01 22:30 → N03A 05-05 23:28
PROVIDERS: ADMIT Internal Medicine Critical Care Medicine; ATTEND Internal Medicine Critical Care Medicine
PROC: 5A1945Z Respiratory Ventilation, 24-96 Consecutive Hours (ICD-10-PCS; 2017-04-19)
PROC: 0BH17EZ Insertion of Endotracheal Airway into Trachea, Via Natural or Artificial Opening (ICD-10-PCS; 2017-04-19)
PROC: 0T9B70Z Drainage of Bladder with Drainage Device, Via Natural or Artificial Opening (ICD-10-PCS; 2017-04-28)
PROC: 05HM33Z Insertion of Infusion Device into Right Internal Jugular Vein, Percutaneous Approach (ICD-10-PCS; 2017-05-01)
PROC: 5A1D70Z Performance of Urinary Filtration, Intermittent, Less than 6 Hours Per Day (ICD-10-PCS; 2017-05-02)
PROC: 5A1955Z Respiratory Ventilation, Greater than 96 Consecutive Hours (ICD-10-PCS; 2017-05-05)
PROC: 0BH17EZ Insertion of Endotracheal Airway into Trachea, Via Natural or Artificial Opening (ICD-10-PCS; 2017-05-05)
PROC: 05HM33Z Insertion of Infusion Device into Right Internal Jugular Vein, Percutaneous Approach (ICD-10-PCS; 2017-05-06)
PROC: 30233N1 Transfusion of Nonautologous Red Blood Cells into Peripheral Vein, Percutaneous Approach (ICD-10-PCS; 2017-05-06)
PROC: 02HV33Z Insertion of Infusion Device into Superior Vena Cava, Percutaneous Approach (ICD-10-PCS; 2017-05-10)
PROC: 0DJ08ZZ Inspection of Upper Intestinal Tract, Via Natural or Artificial Opening Endoscopic (ICD-10-PCS; 2017-05-11)
PROC: 0DJD8ZZ Inspection of Lower Intestinal Tract, Via Natural or Artificial Opening Endoscopic (ICD-10-PCS; 2017-05-14)
PROC: 0DH63UZ Insertion of Feeding Device into Stomach, Percutaneous Approach (ICD-10-PCS; 2017-05-16)
PROC: 0BJ08ZZ Inspection of Tracheobronchial Tree, Via Natural or Artificial Opening Endoscopic (ICD-10-PCS; 2017-05-16)
PROC: 0DJ08ZZ Inspection of Upper Intestinal Tract, Via Natural or Artificial Opening Endoscopic (ICD-10-PCS; 2017-05-16)
PROC: 0B113F4 Bypass Trachea to Cutaneous with Tracheostomy Device, Percutaneous Approach (ICD-10-PCS; principal; 2017-05-16 17:55)
DX: A41.9 Sepsis, unspecified organism (principal); N17.0 Acute kidney failure with tubular necrosis; G62.81 Critical illness polyneuropathy; J18.9 Pneumonia, unspecified organism; G93.41 Metabolic encephalopathy; J96.21 Acute and chronic respiratory failure with hypoxia; R13.10 Dysphagia, unspecified; N25.81 Secondary hyperparathyroidism of renal origin; J44.0 Chronic obstructive pulmonary disease with (acute) lower respiratory infection; N18.6 End stage renal disease; J98.4 Other disorders of lung; E87.2 Acidosis; K56.0 Paralytic ileus; J44.1 Chronic obstructive pulmonary disease with (acute) exacerbation; I12.0 Hypertensive chronic kidney disease with stage 5 chronic kidney disease or end stage renal disease; D62 Acute posthemorrhagic anemia; Z68.41 Body mass index [BMI] 40.0-44.9, adult; I82.611 Acute embolism and thrombosis of superficial veins of right upper extremity; K59.39 Other megacolon; J45.21 Mild intermittent asthma with (acute) exacerbation; E11.22 Type 2 diabetes mellitus with diabetic chronic kidney disease; D69.6 Thrombocytopenia, unspecified; E11.40 Type 2 diabetes mellitus with diabetic neuropathy, unspecified; Z99.81 Dependence on supplemental oxygen; I48.2 Chronic atrial fibrillation; R65.20 Severe sepsis without septic shock; E78.5 Hyperlipidemia, unspecified; E66.01 Morbid (severe) obesity due to excess calories; E89.0 Postprocedural hypothyroidism; M19.90 Unspecified osteoarthritis, unspecified site; M10.9 Gout, unspecified; I25.10 Atherosclerotic heart disease of native coronary artery without angina pectoris; K57.30 Diverticulosis of large intestine without perforation or abscess without bleeding; Z51.5 Encounter for palliative care; K64.8 Other hemorrhoids; I95.9 Hypotension, unspecified; I80.8 Phlebitis and thrombophlebitis of other sites; E83.39 Other disorders of phosphorus metabolism; M62.838 Other muscle spasm; N20.0 Calculus of kidney; R33.9 Retention of urine, unspecified; Z23 Encounter for immunization; Z79.01 Long term (current) use of anticoagulants; Z79.4 Long term (current) use of insulin; Z79.899 Other long term (current) drug therapy; Z85.850 Personal history of malignant neoplasm of thyroid; G47.30 Sleep apnea, unspecified
CPT/HCPCS: 31500; 31600; 31624; 36430; 36556; 36558; 36600; 43753; 51702; 70450; 71010; 74000; 74176; 74270; 76775; 76937; 77001; 80048; 80053; 80069; 80074; 80162; 81001; 82272; 82550; 82552; 82570; 82805; 82948; 83036; 83690; 83735; 83880; 84100; 84132; 84145; 84300; 84439; 84443; 84481; 84484; 85007; 85014; 85018; 85025; 85027; 85384; 85610; 85730; 86022; 86850; 86900; 86901; 86920; 87040; 87070; 87086; 87205; 87493; 87641; 90686; 90935; 93005; 93308; 93970; 94002; 94003; 94640; 94664; 95819; 96361; 96374; 96375; 99152; 99153; C1750; C1752; C1769; C9113; J0330; J0360; J0456; J0690; J0692; J1580; J1644; J1815; J1956; J2060; J2248; J2250; J2270; J2765; J2920; J2930; J3010; J3370; J3480; J7030; J7040; J7050; J7512; J7613; P9016; P9047; Q2038; Q4081; Q9963